=== PATIENT | male | born 1990 | race Caucasian/White ===

== ENCOUNTER 2020-05-18 20:36 | Inpatient (IN) | payer MEDICARE, MEDICAID, SELFPAY ==
[2020-05-18 20:46] VITALS: BP 141/86; PULSE 112; RESP 14; TEMP 36.7; O2SAT 97; BMI 31.0
--- NOTE | 2020-05-18 20:59 | ED_ITS ---
HPI - Psych General: Stated Complaint: SI Time Seen by Provider: 05/18/20 20:46 Source: patient Mode of arrival: ambulatory Limitations: no limitations History of Present Illness: HPI Narrative: 29-year-old male states he has a history of schizoaffective disorder. He states that starting yesterday he started having hallucinations auditory. He states that they have been telling t o harm himself and he has had some suicidal thoughts. He has no active plan. He states his last psych admission was 3 years ago and he voluntarily states he would like to be admitted again due to these hallucinations and thoughts. Denies any worsening improving factors. Associated symptoms: Reports auditory hallucinations, depression and suicidal ideation Review of Systems Const: Denies: fever(s), chills, body aches or change in appetite Eyes: Denies: blurry vision or eye discomfort ENMT: Denies: throat pain or dental pain Card: Denies: chest pain Resp: Denies: dyspnea GI: Denies: abdominal pain, nausea, vomiting or diarrhea : Denies: dysuria Musc: Denies: neck pain or back pain Skin/Breast: Denies: rash Neuro: Denies: headache(s) Psych: Reports: depression, auditory hallucinations and suicidal ideation Jameson/Lymph: Denies: easy bruising All/Imm: Denies: urticaria Physical Exam Const: COMMON NORMALS: no acute distress, patient oriented x3 and healthy appearing HENMT: COMMON NORMALS: normocephalic and atraumatic HEAD & SCALP: normocephalic and atraumatic Eye: COMMON NORMALS: Equal, round and reactive pupils present and EOMs intact bilaterally PUPIL: Yes Equal, round and reactive pupils present Neck/C-Spine: COMMON NORMALS: full ROM and supple Chest: COMMONS NORMALS: normal inspection of the chest and normal palpation of entire chest wall Resp: COMMON NORMALS: normal respiratory effort, No retractions, No use of accessory muscles and clear to auscultation bilaterally AUSCULTATION: clear to auscultation bilaterally Cardio: COMMON NORMALS: regular rate, regular rhythm and No murmurs present (Cardio) RATE: regular rate RHYTHM: regular rhythm GI: COMMON NORMALS: Normal to inspection, nondistended, normoactive bowel korey nds present, Soft to palpation, non-tender and no masses PALPATION: Yes Soft to palpation Extremity: COMMON NORMALS: normal to inspection and full ROM Neuro: COMMON NORMALS: patient oriented x3, moves all extremities and no focal motor deficits Psych: COMMON NORMALS: mental status grossly normal, Normal thought process present and cooperative THOUGHT PROCESS: Normal thought process present Skin: COMMON NORMALS: no rashes or lesions noted and no wounds GENERAL SKIN EXAM: no rashes or lesions noted MDM - Psych MDM Narrative: Medical decision making narrative: Patient presents here with suicidal ideations along with hallucinations. Patient is well-appearing here and is voluntary. He is medically cleared I spoke to psychiatrist will admit. Lab Data: Labs: Lab Results 05/18/20 05/18/20 05/18/20 Range/Units 21:00 21:00 21:05 WBC 8.6 (4.0-10.0) 10^3/ uL RBC 4.99 (4.1-5.3) 10^6/u L Hgb 15.5 (11.7-16.6) g/dL Hct 45.8 (42.0-52.0) % MCV 91.8 (80-94) fL MCH 31.1 (28.0-34.0) pg MCHC 33.8 (30.0-36.0) g/dL RDW 12.5 (12.1-15.1) % Plt Count 212 (130-400) 10^3/c mm MPV 9.8 (7.4-10.4) fL Neut % (Auto) 59.6 % Lymph % (Auto) 32.4 % Austin % (Auto) 6.4 % Eos % (Auto) 1.3 % Baso % (Auto) 0.1 % Neut # (Auto) 5.12 (1.8-7.7) 10^3/u L Lymph # (Auto) 2.8 (0.8-4.8) 10^3/u L Austin # (Auto) 0.6 (0.2-0.9) 10^3/u L Eos # (Auto) 0.1 (0.0-0.8) 10^3/u L Baso # (Auto) 0.0 (0.0-0.1) 10^3/u L Nucleated RBC % (a uto) 0 % Nucleated RBCs # 0.0 /100WBC Sodium 138 (136-145) mmol/L Potassium 4.0 (3.5-5.1) mmol/L Chloride 101 (98-107) mmol/L Carbon Dioxide 24 (22-29) mmol/L Anion Gap 17.0 (5-19) BUN 10 (6-20) mg/dL Creatinine 0.6 L (0.7-1.2) mg/dL GFR Calculation 160.4 H (90-130) mL/min Glucose 92 (65-115) mg/dL Calculated Osmolal ity 285 (285-295) mOsm/k g Calcium 9.7 (8.5-10.5) mg/dL Total Bilirubin 0.2 (0.15-1.2) mg/dL AST 13 (0-40) U/L ALT 17 (0-41) U/L Alkaline Phosphata se 36 L (40-130) IU/L Total Protein 7.6 (6.6-8.7) g/dL Albumin 4.3 (3.5-5.2) g/dL Globulin 3.3 (1.3-4.6) g/dL Salicylates < 0.3 L (3-10) mg/dL Urine Opiates Scre en Negative (Negative) ng/mL Acetaminophen < 5.0 L (10-30) ug/mL Ur Barbiturates Sc reen Negative (Negative) ng/mL Ur Phencyclidine S crn Negative (Negative) ng/mL Ur Amphetamines Sc reen Negative (Negative) ng/mL U Benzodiazepines Scrn Negative (Negative) ng/mL Urine Cocaine Scre en Negative (Negative) ng/mL U Marijuana (THC) Screen Negative (Negative) ng/mL Ethyl Alcohol < 10 (0-10) mg/dL Discharge Plan Discharge Patient Disposition: Admitted As Inpatient Clinical Impression: Hallucination, Suicidal ideation Condition: Stable Coding Level of Care Code ED Clinical Specialist Medical Device for Keny Fwd Exam Comprehensive
[2020-05-18 21:06] LABS: Basophils % 0.1 %; Eosinophils # 0.1 10^3/uL (0.0-0.8); Eosinophils % 1.3 %; Hematocrit 45.8 % (42.0-52.0); Hemoglobin 15.5 g/dL (11.7-16.6); Lymphocytes # 2.8 10^3/uL (0.8-4.8); Lymphocytes % 32.4 %; Mean Corpuscular HGB Conc 33.8 g/dL (30.0-36.0); Mean Corpuscular Hemoglobin 31.1 pg (28.0-34.0); Mean Corpuscular Volume 91.8 fL (80-94); Mean Platelet Volume 9.8 fL (7.4-10.4); Monocytes # 0.6 10^3/uL (0.2-0.9); Monocytes % 6.4 %; Neutrophils # 5.12 10^3/uL (1.8-7.7); Neutrophils % 59.6 %; Nucleated Red Blood Cells % 0 %; Platelet Count 212 10^3/cmm (130-400); Red Blood Count 4.99 10^6/uL (4.1-5.3); Red Cell Distribution Width 12.5 % (12.1-15.1); White Blood Count 8.6 10^3/uL (4.0-10.0)
[2020-05-18 21:19] LABS: Amphetamines Screen Urine Negative (Negative); Barbiturates Screen Urine Negative (Negative); Benzodiazepines Screen Urine Negative (Negative); Cocaine Screen Urine Negative (Negative); Opiate Screen Urine Negative (Negative); PCP Screen Urine Negative (Negative); THC Screen Urine Negative (Negative)
[2020-05-18 21:23] LABS: Alanine Aminotransferase 17 U/L (0-41); Albumin Level 4.3 g/dL (3.5-5.2); Alkaline Phosphatase 36 IU/L (40-130); Aspartate Amino Transferase 13 U/L (0-40); Blood Urea Nitrogen 10 mg/dL (6-20); Calcium 9.7 mg/dL (8.5-10.5); Carbon Dioxide 24 mmol/L (22-29); Chloride 101 mmol/L (98-107); Globulin 3.3 g/dL (1.3-4.6); Glomerular Filtration Rate 160.4 mL/min (90-130); Glucose 92 mg/dL (65-115); Osmolality Calculated 285 mOsm/kg (285-295); Sodium 138 mmol/L (136-145); Total Bilirubin 0.2 mg/dL (0.15-1.2); Total Protein 7.6 g/dL (6.6-8.7)
[2020-05-18 21:25] LABS: Acetaminophen < 5.0 ug/mL (10-30); Alcohol Level < 10 mg/dL (0-10); Salicylate < 0.3 mg/dL (3-10)
[2020-05-18] MEDS: LORazepam 2 mg Tablet PO (21:56)
[2020-05-18 22:11] LABS: Valproic Acid Level 38.1 ug/mL (50-100)
[2020-05-18 22:17] VITALS: BP 132/76; PULSE 68; RESP 18; O2SAT 99
[2020-05-18 22:52] VITALS: BP 119/74; PULSE 128; RESP 18; TEMP 36.2; O2SAT 97
[2020-05-18] MEDS: nicotine 2 mg Gum BUCCAL (23:28)
[2020-05-18] MEDS: hyDROXYzine 25 mg Capsule 50 MG PO (23:28)
[2020-05-18] MEDS: trazodone 50 mg Tablet PO (23:28)
[2020-05-18] MEDS: acetaminophen 325 mg Tablet 650 MG PO (23:28)
[2020-05-19 06:00] VITALS: BP 128/80; PULSE 105; RESP 18; TEMP 36.7; O2SAT 96
[2020-05-19] MEDS: lisinopril 5 mg Tablet PO (06:54)
[2020-05-19] MEDS: levothyroxine 100 mcg Tablet PO (06:54)
[2020-05-19] MEDS: metoprolol succinate ER (24 HR) 25 mg Tablet PO (06:54)
[2020-05-19] MEDS: nicotine 2 mg Gum BUCCAL ×5 (06:54→18:03)
[2020-05-19] MEDS: quetiapine 300 mg Tablet PO ×2 (07:03→21:22)
[2020-05-19] MEDS: quetiapine 100 mg Tablet PO ×2 (07:03→21:22)
[2020-05-19] MEDS: divalproex DR 500 mg Tablet PO ×2 (08:10→21:23)
[2020-05-19] MEDS: hyDROXYzine 25 mg Capsule 50 MG PO ×2 (09:57→21:23)
--- NOTE | 2020-05-19 09:58 | PC.NURSE ---
PRN VISTARIL? ANXIETY patient at nurses station and reports increased anxiety. PRN Vistaril 50mh PO given at this time. Will monitor for effectiveness of this medication.
--- NOTE | 2020-05-19 10:50 | PC.NURSE ---
PRN VISTARIL EFFECTIVE NO FURTHER C/O ANXIETY
--- NOTE | 2020-05-19 11:16 | PM.NHP ---
Providers/Chief Complaint Admitting Physician: Abdi Castorena DO Primary Care Provider: Sp Flowers MD Chief Complaint: SI HPI NPU History of Present Illness Real Black is a 29 year old male with history of schizoaffective disorder reports worsening command auditory hallucinations to harm himself in the context of worsening depressive symptoms. Patient denies any recent medication changes and states last psychiatric hospitalization was approximately 3 years ago. Patient states that his medications have been managed by primary care while awaiting an appointment with a psychiatrist at [facility]. Reports worsening low mood, decreased energy and interest in his usual activities. Currently denying any suicidal ideation but reports history of self-harm behavior 3 years ago. Patient currently denying any auditory hallucinations, denies any visual destinations, denies any delusions. Patient reports some anxiety symptoms related to his condition but otherwise denies any sustained excessive worry or difficulty controlling his worrying, denies any panic symptoms. Denies any use of substances or alcohol or any other modifying factors. Patient reports living in a detention, reports a good support system, supports himself on disability. Review of Systems General: Reports: 10 or more systems reviewed and unremarkable except in HPI and below Meds NPU Home Medications Medication Instructions Recorded Confirmed Last Taken Type divalproex [Depakote] 500 mg PO BID@0700,1900 05/18/20 05/18/20 05/18/20 History hydroxyzine pamoate 25 mg PO Q8H PRN 05/18/20 05/18/20 Unknown History levothyroxine 100 mcg PO DAILY@0700 05/18/20 05/18/20 05/18/20 History lisinopril 5 mg PO DAILY@0700 05/18/20 05/18/20 05/18/20 History metoprolol succinate 25 mg PO DAILY@0700 05/18/20 05/18/20 05/18/20 History mirtazapine 15 mg PO DAILY@0700 05/18/20 05/18/20 05/18/20 History nicotine 1 patch TRANSDERMAL DAILY 05/18/20 05/18/20 05/18/20 History quetiapine 400 mg PO BID@0700,1900 05/18/20 05/18/20 05/18/20 History risperidone [Risperdal] 1 mg PO Q2H PRN 05/18/20 05/18/20 Unknown History Allergies Allergy/AdvReac Type Severity Reaction Status Date / Time haloperidol [From Haldol] Allergy Unknown Verified 05/18/20 20:45 lurasidone [From Latuda] Allergy Unknown Verified 05/18/20 20:45 olanzapine [From Zyprexa] Allergy Unknown Verified 05/18/20 20:45 [facility] NPU Other Psychiatric History: Other Psychiatric History: Reports first contact with mental health was in his late teens, does not recall last contact with his psychiatrist, reports current medications are managed by primary care Reports last psychiatric hospitalization was 3 years ago and had harmed himself by cutting his wrist at the time Reports only suicide attempt was cutting his wrist 3 years ago with prior self-harm behavior with no subsequent episodes Mental Status Exam MSE Comments: Appears stated age, disheveled, unkempt, sitting in wheelchair, good eye contact, calm, cooperative Psychomotor activity is neither increased nor decreased, no agitation Speech is somewhat slow, normal volume, spontaneous, fair articulation, not pressured I feel depressed, congruent affect, not labile Alert and oriented to person, place, time, situation Memory and concentration appear to be fair to intact per interview Intellectual functioning appears to be below average to average at best based on vocabulary, interview Thought process, some delays, linear, no flight of ideas, no looseness of associations Thought content, no delusions, no hallucinations, no suicidal or homicidal ideation Insight and judgment appear to be fair Vitals/I&O/Wt Last Vital Signs Temp 98.1 F 05/19/20 06:00 Pulse 105 H 05/19/20 06:00 Resp 18 05/19/20 06:00 BP 128/80 05/19/20 06:00 Pulse Ox 96 05/19/20 06:00 Weight last 48 hrs Weight 95.254 kg Data NPU : 05/18/20 21:00 05/18/20 21:00 A&P Assessment and plan (1) Suicidal ideation: Status: Acute (2) Depressive disorder: Status: Acute (3) Schizoaffective disorder: Status: Acute Additional A&P Information Patient with worsening mood congruent command auditory hallucinations to harm himself with past history of suicide attempt 3 years ago, currently denying any suicidal ideation but continues to have worsening depressive symptoms. Patient would benefit from titrating up on patient's antidepressant while observing for any return of suicidal ideation or self-harm behavior. VOLUNTARY ADMIT to inpatient psychiatry INCREASE to mirtazapine 30 mg at bedtime targeting depressive symptoms CONTINUE Seroquel 400 mg twice daily CONTINUE Depakote 500 mg twice daily Encourage patient to participate in unit activities to include group sessions and unit milieu Involuntary Hold Information 96 Hour Hold: 96 Hour Involuntary Admission: No Attestations NPU Medical Necessity Statement*: Patient requires psychiatric hospitalization given worsening psychotic symptoms and depressive symptoms as well as recent suicidal ideation with past history of suicide attempt requiring medication stabilization. Anticipate hospital stay to exceed 2 midnights Time Spent in Patient Care: Greater than 35 minutes (>than 50% of time spent in counselling and/or direct pt care on unit). Coding Level of Care Code Acute Contracts Director for Keny Ying Diagnoses Suicidal ideation R45.851 Depressive disorder F32.9 Schizoaffective disorder F25.9
[2020-05-19 14:00] VITALS: BP 122/66; PULSE 99; RESP 18; TEMP 36.8; O2SAT 95
--- NOTE | 2020-05-19 18:04 | PC.NURSE ---
pt assisted to first floor to shower. pt showered independently, given clean scrubs and changed into them
[2020-05-19 19:57] VITALS: BP 114/78; PULSE 95; RESP 199; TEMP 36.6; O2SAT 95
[2020-05-19] MEDS: mirtazapine 30 mg Tablet PO (21:22)
[2020-05-20] MEDS: nicotine 2 mg Gum BUCCAL ×9 (01:38→23:41)
[2020-05-20 06:00] VITALS: BP 127/73; PULSE 98; RESP 17; TEMP 36.5; O2SAT 95
[2020-05-20] MEDS: levothyroxine 100 mcg Tablet PO (08:09)
[2020-05-20] MEDS: lisinopril 5 mg Tablet PO (08:10)
[2020-05-20] MEDS: divalproex DR 500 mg Tablet PO ×2 (08:10→21:15)
[2020-05-20] MEDS: quetiapine 100 mg Tablet PO ×2 (08:10→21:15)
[2020-05-20] MEDS: metoprolol succinate ER (24 HR) 25 mg Tablet PO (08:10)
[2020-05-20] MEDS: quetiapine 300 mg Tablet PO ×2 (08:10→21:15)
[2020-05-20 14:00] VITALS: BP 124/68; PULSE 107; RESP 20; TEMP 36.4; O2SAT 96
--- NOTE | 2020-05-20 14:29 | PC.SOCIAL ---
Important Medicare Message Patient was not provided at admission. Reviewed page 1 and 2 of Important Medicare Message and signed page 2. Verbalized understanding. Original to patient and copy to chart.
--- NOTE | 2020-05-20 15:22 | PM.NPN ---
Subjective NPU Subjective: Interval history: Reports improvement in depressive symptoms, states 3-/10, denies any interval suicidal ideation Denies any interval psychotic symptoms Reports being compliant with medication and denies any medication side effects No reported behavioral disturbances Mental Status Exam MSE Comments: Sitting in wheelchair, calm, cooperative, interactive, good eye contact Psychomotor activity is neither increased nor decreased, no agitation Speech is somewhat slow, normal volume, spontaneous, fair articulation, not pressured I am feeling better, congruent affect, not labile Alert and oriented to person, place, time, situation Memory and concentration appear to be fair to intact per interview Thought process, occasional delays, linear, no flight of ideas, no looseness of associations Thought content, no delusions, no hallucinations, no suicidal or homicidal ideation Insight and judgment appear to be to intact Vitals/I&O/Wt Last Vital Signs Temp 97.7 F 05/20/20 06:00 Pulse 98 05/20/20 06:00 Resp 17 05/20/20 06:00 BP 127/73 05/20/20 06:00 Pulse Ox 95 05/20/20 06:00 Weight last 48 hrs Weight 95.254 kg Data NPU : 05/18/20 21:00 05/18/20 21:00 A&P Assessment and plan (1) Suicidal ideation: Status: Acute (2) Depressive disorder: Status: Acute (3) Schizoaffective disorder: Status: Acute Additional A&P Information Reports improvement in depressive symptoms, denies any interval suicidal ideation CONTINUE current medication, continue to monitor Involuntary Hold Information 96 Hour Hold: 96 Hour Involuntary Admission: No Attestations NPU Medical Necessity Statement*: Continues to require psychiatric hospitalization for medication stabilization and coordination for safe discharge including post discharge psychiatric care Coding Level of Care Code Acute Corporate Communications Specialist for Renay Fweric Diagnoses Suicidal ideation R45.851 Depressive disorder F32.9 Schizoaffective disorder F25.9
--- NOTE | 2020-05-20 19:04 | PM.NPTHER ---
NPU Therapy Progress Note Therapy Progress Note Date: 05/20/20 Time In: 17:35 Time Out: 18:05 Symptoms Reported: much improvement in auditory hallucinations Mood: pleasant, hopeful, goal oriented, mild guilt Progress Note: ADDY roused Real as he was resting quietly and he engages easily in conversation. He remembers that Odalis Torres, [facility] staff, spoke with him earlier in the day and he has follow up questions about [facility] services and therapy process. He has questions about how to contact [facility] via 800 line and/or by contacting the local office. FIRE PROTECTION INSPECTOR provided the information he needed. He is observed to be engaging, insightful, hopeful, and communicates appropriately. Real speaks about his past and numerous hospitalizations and when it is that he knows he needs to seek treatment for a medication adjustment. He discusses a prior romantic relationship, how it dissolved, his decision to move and his difficulty in the adjustment of his move to [place]. He feels these are the stressors that possibly lead to his escalation in symptoms. He is aware that follow up tx at [facility] will be beneficial to him and states he has already had his initial assessment to begin services. He reports engaging in therapy previously; however, never felt he had a connection with the therapist, therefore did not share. He speaks about guilt emotions related to his need for numerous hospitalizations over the years and difficulty of his family understanding and accepting his mental illness. He feels they are disappointed in him when he does need to be hospitalized. He is encouraged to work on these emotions in therapy. After stabilization, he would like to focus on taking college courses and then being involved as someone who helps those with mental health issues, such as something like a document design specialist. Intervention: FIRE PROTECTION INSPECTOR actively listened, provided information, developed initial rapport, and provided encouragement. His emotions related to family dynamic issues were validated. He was encouraged to further explore this in the therapy setting to ensure he is able to continue to seek the services he needs, although his family may at times disapprove. Reported Goals Before Discharge: continue medications, follow up with [facility] after discharge. Future goals: college courses and a job in the mental health field.
[2020-05-20 21:06] VITALS: BP 124/80; PULSE 106; RESP 18; TEMP 36.6; O2SAT 94
[2020-05-20] MEDS: mirtazapine 30 mg Tablet PO (21:15)
[2020-05-20] MEDS: hyDROXYzine 25 mg Capsule 50 MG PO (21:16)
--- NOTE | 2020-05-21 01:13 | PC.NURSE ---
PM assessment Pt denies AH/VH, Denies SI/HI, Denies pain, Pt heart/lung sounds are WNL, v/s are normal. Pt confirms to having doubts about his readiness to return to [place] tomorrow and is experiencing racing thoughts. Pt is resting in his room at this time.
[2020-05-21] MEDS: acetaminophen 325 mg Tablet 650 MG PO (04:19)
[2020-05-21] MEDS: nicotine 2 mg Gum BUCCAL ×4 (04:28→11:27)
[2020-05-21 06:00] VITALS: BP 136/80; PULSE 98; RESP 18; TEMP 36.1; O2SAT 97
[2020-05-21] MEDS: lisinopril 5 mg Tablet PO (06:30)
[2020-05-21] MEDS: levothyroxine 100 mcg Tablet PO (06:30)
[2020-05-21] MEDS: metoprolol succinate ER (24 HR) 25 mg Tablet PO (06:30)
[2020-05-21] MEDS: quetiapine 100 mg Tablet PO (08:06)
[2020-05-21] MEDS: quetiapine 300 mg Tablet PO (08:06)
[2020-05-21] MEDS: divalproex DR 500 mg Tablet PO (08:06)
[2020-05-21 11:21] VITALS: BP 136/80; PULSE 98; RESP 18; TEMP 36.1; O2SAT 97
--- NOTE | 2020-05-21 16:54 | P.DS_ITS ---
Diagnoses at Discharge Discharge Diagnosis (1) Suicidal ideation: Status: Resolved (2) Depressive disorder: Status: Acute (3) Schizoaffective disorder: Status: Acute Reason for Visit Reason for Visit: SI Brief History: History of Present Illness Real Black is a 29 year old male with history of schizoaffective disorder reports worsening command auditory hallucinations to harm himself in the context of worsening depressive symptoms. Patient denies any recent medication changes and states last psychiatric hospitalization was approximately 3 years ago. Patient states that his medications have been managed by primary care while awaiting an appointment with a psychiatrist at [facility] [place]. Reports worsening low mood, decreased energy and interest in his usual activities. Currently denying any suicidal ideation but reports history of self-harm behavior 3 years ago. Patient currently denying any auditory hallucinations, denies any visual destinations, denies any delusions. Patient reports some anxiety symptoms related to his condition but otherwise denies any sustained excessive worry or difficulty controlling his worrying, denies any panic symptoms. Denies any use of substances or alcohol or any other modifying factors. Patient reports living in a shelter, reports a good support system, supports himself on disability. Review of Systems General: Reports: 10 or more systems reviewed and unremarkable except in HPI and below Meds NPU Home Medications Medication Instructions Recorded Confirmed Last Taken Type divalproex [Depakote] 500 mg PO BID@0700,1900 05/18/20 05/18/20 05/18/20 History hydroxyzine pamoate 25 mg PO Q8H PRN 05/18/20 05/18/20 Unknown History levothyroxine 100 mcg PO DAILY@0705/18/20 05/18/20 05/18/20 History lisinopril 5 mg PO DAILY@0700 05/18/20 05/18/20 05/18/20 History metoprolol succinate 25 mg PO DAILY@0700 05/18/20 05/18/20 05/18/20 History mirtazapine 15 mg PO DAILY@0700 05/18/20 05/18/20 05/18/20 History nicotine 1 patch TRANSDERMAL DAILY 05/18/20 05/18/20 05/18/20 History quetiapine 400 mg PO BID@0700,1900 05/18/20 05/18/20 05/18/20 History risperidone [Risperdal] 1 mg PO Q2H PRN 05/18/20 05/18/20 Unknown History Allergies Allergy/AdvReac Type Severity Reaction Status Date / Time haloperidol [From Haldol] Allergy Unknown Verified 05/18/20 20:45 lurasidone [From Latuda] Allergy Unknown Verified 05/18/20 20:45 olanzapine [From Zyprexa] Allergy Unknown Verified 05/18/20 20:45 PFS NPU Other Psychiatric History: Other Psychiatric History: Reports first contact with mental health was in his late teens, does not recall last contact with his psychiatrist, reports current medications are managed by primary care Reports last psychiatric hospitalization was 3 years ago and had harmed himself by cutting his wrist at the time Reports only suicide attempt was cutting his wrist 3 years ago with prior self- harm behavior with no subsequent episodes Hospital Course Hospital Course Real presented to the emergency department with the following report: Stated Complaint: SI Time Seen by Provider: 05/18/20 20:46 Source: patient Mode of arrival: ambulatory Limitations: no limitations History of Present Illness: HPI Narrative: 29-year-old male states he has a history of schizoaffective disorder. He states that starting yesterday he started having hallucinations auditory. He states that they have been telling to harm himself and he has had some suicidal thoughts. He has no active plan. He states his last psych admission was 3 years ago and he voluntarily states he would like to be admitted again due to these hallucinations and thoughts. Denies any worsening improving factors. Associated symptoms: Reports auditory hallucinations, depression and suicidal ideation. He was admitted to the neuropsychiatric unit for definitive treatment of those issues. On the unit he slowly acclimated to the individual, group and milieu therapies provided. It was identified that he had a recent move to the area and recent admission to his shelter/[facility]. His outpatient medications were continued and his Remeron was increased. He showed a positive response to those changes and was able to contract for safety prior to discharge.During the hospitalization, patient had routine laboratory studies which were within normal limits except for few outliers. Additionally there was a general medical evaluation which was also within normal limits and revealed no new acute processes. Discharge Summary: At the time of discharge, he was absent psychosis or lethality. Mood and anxiety were well managed. Patient endorsed a plan to follow-up with the aftercare recommendations of the treatment team. Patient was evaluated and deemed to be absent credible lethality, and had achieved the maximum benefit from an inpatient hospitalization, so was discharged. Involuntary Hold Information 96 Hour Hold: 96 Hour Involuntary Admission: No Mental Status Exam MSE Comments: This is an overweight versus obese white male with hospital scrubs on with appropriate grooming and eye contact. No abnormal movements sitting in a wheelchair. Cooperative with exam in no acute distress. Speech normal rate and volume. Mood described as much better, affect congruent. Thought process organized. Thought content: Patient denied suicidal or homicidal ideation, there were no delusions reported or noted, he denied any auditory or visual hallucinations. Attention and concentration were intact and memory appeared reliable but none were formally tested. He is alert and oriented ?3. Insight and judgment appeared fair. Discharge Data Vitals: Last Vital Signs Temp 97.0 F L 05/21/20 11:21 Pulse 98 05/21/20 11:21 Resp 18 05/21/20 11:21 BP 136/80 05/21/20 11:21 Pulse Ox 97 05/21/20 11:21 Discharge Plan Discharge Patient Disposition: Home Condition: Stable Prescriptions: New mirtazapine 30 mg Tablet 30 mg PO BEDTIME 30 Days Qty: 30 RF: 1 Continued nicotine 21 mg/24 hr Patch 24 Hour 1 patch TRANSDERMAL DAILY RF: 0 Depakote 500 mg Tablet,Delayed Release (Dr/Ec) 500 mg PO BID@0700,1900 30 Days Qty: 30 RF: 1 levothyroxine 100 mcg Tablet 100 mcg PO DAILY@0700 30 Days Qty: 30 RF: 1 lisinopril 5 mg Tablet 5 mg PO DAILY@0700 30 Days Qty: 30 RF: 1 metoprolol succinate 25 mg Tablet Extended Release 24 Hr 25 mg PO DAILY@0700 30 Days Qty: 30 RF: 1 Risperdal 1 mg Tablet 1 mg PO Q2H PRN (Reason: intensive hallucinations) 30 Days Qty: 30 RF: 1 hydroxyzine pamoate 25 mg Capsule 25 mg PO Q8H PRN (Reason: Anxiety) 30 Days Qty: 90 RF: 1 quetiapine 400 mg Tablet 400 mg PO BID@0700,1900 30 Days Qty: 30 RF: 1 Discontinued mirtazapine 15 mg Tablet 15 mg PO DAILY@0700 RF: 0 Discharge Orders: Discharge Order (Routine); Ordered 05/21/20 Ordered By: Troy Stevens Referrals: [facility] [Outside] - 05/26/20 1:15 pm (Intake assessment, will be done over the phone with Yesica Green) Gabe Loaiza DPM [Physician] - 06/03/20 1:30 pm (Rescheduled from 05/19/20 New patient appointment) Sp Flowers MD [Primary Care Provider] - Discharge Diet: Cardiac Discharge Activity: Resume usual activity Patient Instructions: Generalized Anxiety Disorder Discharge Attestations NPU Time Spent in Discharge Care*: less than 30 min Specific Discharge Activities: Specific discharge activities: educating patient, discussing with business case analyst/social workers/dc planners, documenting/other paperwork and evaluating patient/reviewing data Coding Level of Care Code Acute Production Support Analyst for g Fwd Diagnoses Suicidal ideation R45.851 Depressive disorder F32.9 Schizoaffective disorder F25.9
== END 2020-05-21 12:58 | disposition home or self-care (01) | DRG 885 ==
LOC: ER 21:22 → NP 22:10
PROVIDERS: Admitting Provider Psychiatry & Neurology Psychiatry; Emergency Provider Emergency Medicine; PCP Family Medicine; Visit Provider Psychiatry & Neurology Psychiatry
DX: F25.9 Schizoaffective disorder, unspecified (principal); R45.851 Suicidal ideations; F32.9 Major depressive disorder, single episode, unspecified; Z91.5 Personal history of self-harm
CPT/HCPCS: 12345; 36415; 80053; 80164; 80306; 80307; 85025; 99284

== ENCOUNTER 2020-06-03 12:33 | Outpatient (CLI) | payer MEDICARE, MEDICAID, SELFPAY | END 2020-06-03 12:34 | disposition home or self-care (01) | LOC: SPT 12:34 | PROVIDERS: PCP Family Medicine; Visit Provider Podiatrist Foot & Ankle Surgery | DX: Z46.89 Encounter for fitting and adjustment of other specified devices (principal); S93.401D Sprain of unspecified ligament of right ankle, subsequent encounter; X58.XXXD Exposure to other specified factors, subsequent encounter | CPT/HCPCS: 97760; L1902 ==

== ENCOUNTER 2020-06-12 21:02 | Inpatient (IN) | payer MEDICARE, MEDICAID, SELFPAY ==
[2020-06-12 21:05] VITALS: BP 127/89; PULSE 115; RESP 18; TEMP 36.6; O2SAT 99; BMI 31.0
[2020-06-12 21:26] LABS: Basophils % 0.3 %; Eosinophils # 0.2 10^3/uL (0.0-0.8); Eosinophils % 2.3 %; Hematocrit 45.8 % (42.0-52.0); Hemoglobin 15.6 g/dL (11.7-16.6); Lymphocytes # 2.9 10^3/uL (0.8-4.8); Lymphocytes % 44.9 %; Mean Corpuscular HGB Conc 34.1 g/dL (30.0-36.0); Mean Corpuscular Hemoglobin 30.7 pg (28.0-34.0); Mean Corpuscular Volume 90.2 fL (80-94); Mean Platelet Volume 10.1 fL (7.4-10.4); Monocytes # 0.4 10^3/uL (0.2-0.9); Monocytes % 5.6 %; Neutrophils # 3.02 10^3/uL (1.8-7.7); Neutrophils % 46.6 %; Nucleated Red Blood Cells % 0 %; Platelet Count 216 10^3/cmm (130-400); Red Blood Count 5.08 10^6/uL (4.1-5.3); Red Cell Distribution Width 11.9 % (12.1-15.1); White Blood Count 6.5 10^3/uL (4.0-10.0)
[2020-06-12 21:43] LABS: Alanine Aminotransferase 16 U/L (0-41); Albumin Level 4.5 g/dL (3.5-5.2); Alkaline Phosphatase 36 IU/L (40-130); Anion Gap 16.8 (5-19); Aspartate Amino Transferase 14 U/L (0-40); Blood Urea Nitrogen 8 mg/dL (6-20); Carbon Dioxide 22 mmol/L (22-29); Chloride 102 mmol/L (98-107); Globulin 3.1 g/dL (1.3-4.6); Glomerular Filtration Rate 134.3 mL/min (90-130); Glucose 112 mg/dL (65-115); Osmolality Calculated 283 mOsm/kg (285-295); Potassium 3.8 mmol/L (3.5-5.1); Sodium 137 mmol/L (136-145); Total Bilirubin 0.2 mg/dL (0.15-1.2); Total Protein 7.6 g/dL (6.6-8.7)
[2020-06-12 21:47] LABS: Acetaminophen < 5.0 ug/mL (10-30); Alcohol Level < 10 mg/dL (0-10); Salicylate < 0.3 mg/dL (3-10)
[2020-06-12 21:50] LABS: Add Urine Microscopic? NO
[2020-06-12 21:55] VITALS: BP 106/74; PULSE 130; RESP 16; TEMP 36.7; O2SAT 97
[2020-06-12 21:58] LABS: Glucose Urine UA Norm (Normal); Protein Urine Neg (Negative); Specific Gravity, Urine 1.005 (1.005-1.030); Urine Appearance Clear (CLEAR); Urine Color Yellow (Yellow); pH Urine 6.5 (5-7)
[2020-06-12 21:59] LABS: Bilirubin Urine Neg (Negative); Blood Urine Neg (Negative); Ketones Urine Negative (Negative); Leukocyte Esterase Urine Negative (Negative); Nitrate Urine Negative (Negative); Urobilinogen Urine Norm (Negative)
[2020-06-12 22:00] VITALS: BP 106/74; PULSE 130; RESP 16; TEMP 36.7; O2SAT 97
[2020-06-12 22:05] LABS: Amphetamines Screen Urine Negative (Negative); Barbiturates Screen Urine Negative (Negative); Benzodiazepines Screen Urine Negative (Negative); Cocaine Screen Urine Negative (Negative); Opiate Screen Urine Negative (Negative); PCP Screen Urine Negative (Negative); THC Screen Urine Negative (Negative)
[2020-06-12 23:12] VITALS: BP 106/74; PULSE 130; RESP 19; TEMP 36.7; O2SAT 97
[2020-06-12 23:20] VITALS: RESP 16
--- NOTE | 2020-06-12 23:26 | ED_ITS ---
HPI - Psych General: Chief Complaint: Psychiatric Symptoms Stated Complaint: hearing voices Time Seen by Provider: 06/12/20 21:07 Source: patient Mode of arrival: ambulatory Limitations: no limitations History of Present Illness: HPI Narrative: Patient presents to the emergency department with complaints of auditory hallucination and suicidal ideation. He was admitted from this facility a few weeks ago was discharged home. He states that he was doing better but thinks he left too early as he felt he was improving at that time. He is having suicidal thoughts but does not have a plan. He would like to be held before he progresses further. complaint: suicidal ideation Duration: constant History of same: Yes Relieving factors: none Exacerbating factors: none Associated psychiatric symptoms: depression, suicidal ideation and auditory hallucinations Associated symptoms: Reports auditory hallucinations, depression and suicidal ideation; Deny visual hallucinations, delusions, homicidal ideation or racing thoughts Treatments prior to arrival: none If self harm: admits thoughts of self harm Review of Systems General: Reports: 10 or more systems reviewed and unremarkable except in HPI and below Const: Denies: fever(s), chills or body aches Eyes: Denies: change in vision or blurry vision ENMT: Denies: throat pain, enlarged tonsils, odynophagia, hoarseness, mouth pain or swelling of lips/tongue Card: Denies: palpitations, irregular heart rhythm, edema or swelling of feet/ankles Resp: Denies: dyspnea, productive cough or non-productive cough GI: Denies: abdominal pain, nausea or vomiting : Denies: flank pain, dysuria, urinary frequency, urinary urgency or urinary hesitancy Musc: Denies: neck pain, back pain or extremity swelling Skin/Breast: Denies: rash, pruritus or erythema Neuro: Denies: headache(s), numbness in extremities or weakness in extremities Psych: Reports: depression, auditory hallucinations and suicidal ideation; Denies: visual hallucinations or homicidal ideation Endo: Denies: polyuria, polydipsia or tired all the time [facility] ED PFSH: Medical History Depressive disorder Hallucination Schizoaffective disorder Physical Exam Const: COMMON NORMALS: no acute distress, average body habitus, patient oriented x3, no limitations, healthy appearing, alert and well nourished HENMT: COMMON NORMALS: normocephalic, atraumatic and moist oral mucous membranes HEAD & SCALP: normocephalic and atraumatic Neck/C-Spine: COMMON NORMALS: no meningeal signs and no JVD Resp: COMMON NORMALS: normal respiratory effort, No retractions, No use of accessory muscles, clear to auscultation bilaterally and percussion normal AUSCULTATION: clear to auscultation bilaterally PERCUSSION: percussion normal Cardio: COMMON NORMALS: no JVD, regular rate, regular rhythm, S1 normal heart sound present, S2 normal heart sound present, No gallops present (Cardio), No clicks present (Cardio), No murmurs present (Cardio), No rub (Cardio) and Peripheral pulses 2+ throughout RATE: regular rate RHYTHM: regular rhythm HEART SOUNDS: S1 normal heart sound present and S2 normal heart sound present PERIPHERAL PULSES: Peripheral pulses 2+ throughout GI: COMMON NORMALS: Normal to inspection, nondistended, normoactive bowel sounds present, Soft to palpation, non-tender, No hepatosplenomegaly present, no masses and no bruits PALPATION: Yes Soft to palpation and Yes No hepatosplenomegaly present Neuro: COMMON NORMALS: patient oriented x3 SENSORIUM/ORIENTATION: Yes alert MENINGEAL SIGNS: Yes no meningeal signs Psych: COMMON NORMALS: mental status grossly normal and Normal thought process present THOUGHT PROCESS: Normal thought process present THOUGHT CONTENT: Yes Suicidality present, No delusions and Yes Hallucination(s) present auditory Skin: COMMON NORMALS: no rashes or lesions noted, no wounds, turgor normal, no jaundice, no petechiae and no mottling GENERAL SKIN EXAM: no rashes or lesions noted and turgor normal MDM - Psych MDM Narrative: Medical decision making narrative: 29-year-old male who presents to the emergency department with suicidal ideation and auditory hallucinations. He is medically cleared and admitted to the neuropsychiatric unit for further evaluation and management Medical Records: Attestation: I reviewed the patient's medical records. Lab Data: Attestation: I reviewed the patient's lab results. Labs: Lab Results 06/12/20 06/12/20 06/12/20 Range/Units 21:19 21:19 21:19 WBC 6.5 (4.0-10.0) 10^3/ uL RBC 5.08 (4.1-5.3) 10^6/u L Hgb 15.6 (11.7-16.6) g/dL Hct 45.8 (42.0-52.0) % MCV 90.2 (80-94) fL MCH 30.7 (28.0-34.0) pg MCHC 34.1 (30.0-36.0) g/dL RDW 11.9 L (12.1-15.1) % Plt Count 216 (130-400) 10^3/c mm MPV 10.1 (7.4-10.4) fL Neut % (Auto) 46.6 % Lymph % (Auto) 44.9 % [place] % (Auto) 5.6 % Eos % (Auto) 2.3 % Baso % (Auto) 0.3 % Neut # (Auto) 3.02 (1.8-7.7) 10^3/u L Lymph # (Auto) 2.9 (0.8-4.8) 10^3/u L [place] # (Auto) 0.4 (0.2-0.9) 10^3/u L Eos # (Auto) 0.2 (0.0-0.8) 10^3/u L Baso # (Auto) 0.0 (0.0-0.1) 10^3/u L Nucleated RBC % (a uto) 0 % Nucleated RBCs # 0.0 /100WBC Sodium 137 (136-145) mmol/L Potassium 3.8 (3.5-5.1) mmol/L Chloride 102 (98-107) mmol/L Carbon Dioxide 22 (22-29) mmol/L Anion Gap 16.8 (5-19) BUN 8 (6-20) mg/dL Creatinine 0.7 (0.7-1.2) mg/dL GFR Calculation 134.3 H (90-130) mL/min Glucose 112 (65-115) mg/dL Calculated Osmolal ity 283 L (285-295) mOsm/k g Calcium 9.0 (8.5-10.5) mg/dL Total Bilirubin 0.2 (0.15-1.2) mg/dL AST 14 (0-40) U/L ALT 16 (0-41) U/L Alkaline Phosphata se 36 L (40-130) IU/L Total Protein 7.6 (6.6-8.7) g/dL Albumin 4.5 (3.5-5.2) g/dL Globulin 3.1 (1.3-4.6) g/dL Urine Color Yellow (Yellow) Urine Appearance Clear (CLEAR) Urine pH 6.5 (5-7) Ur Specific Gravit y 1.005 (1.005-1.030) Urine Protein Neg (Negative) Urine Glucose (UA) Norm (Normal) Urine Ketones Negative (Negative) Urine Blood Neg (Negative) Urine Nitrate Negative (Negative) Urine Bilirubin Neg (Negative) Urine Urobilinogen Norm (Negative) mg/dL Ur Leukocyte Unique ase Negative (Negative) Salicylates < 0.3 L (3-10) mg/dL Urine Opiates Scre en (Negative) ng/mL Acetaminophen < 5.0 L (10-30) ug/mL Ur Barbiturates Sc reen (Negative) ng/mL Ur Phencyclidine S crn (Negative) ng/mL Ur Amphetamines Sc reen (Negative) ng/mL U Benzodiazepines Scrn (Negative) ng/mL Urine Cocaine Scre en (Negative) ng/mL U Marijuana (THC) Screen (Negative) ng/mL Ethyl Alcohol < 10 (0-10) mg/dL 06/12/20 Range/Units 21:19 WBC (4.0-10.0) 10^3/ uL RBC (4.1-5.3) 10^6/u L Hgb (11.7-16.6) g/dL Hct (42.0-52.0) % MCV (80-94) fL MCH (28.0-34.0) pg MCHC (30.0-36.0) g/dL RDW (12.1-15.1) % Plt Count (130-400) 10^3/c mm MPV (7.4-10.4) fL Neut % (Auto) % Lymph % (Auto) % [place] % (Auto) % Eos % (Auto) % Baso % (Auto) % Neut # (Auto) (1.8-7.7) 10^3/u L Lymph # (Auto) (0.8-4.8) 10^3/u L [place] # (Auto) (0.2-0.9) 10^3/u L Eos # (Auto) (0.0-0.8) 10^3/u L Baso # (Auto) (0.0-0.1) 10^3/u L Nucleated RBC % (a uto) % Nucleated RBCs # /100WBC Sodium (136-145) mmol/L Potassium (3.5-5.1) mmol/L Chloride (98-107) mmol/L Carbon Dioxide (22-29) mmol/L Anion Gap (5-19) BUN (6-20) mg/dL Creatinine (0.7-1.2) mg/dL GFR Calculation (90-130) mL/min Glucose (65-115) mg/dL Calculated Osmolal ity (285-295) mOsm/k g Calcium (8.5-10.5) mg/dL Total Bilirubin (0.15-1.2) mg/dL AST (0-40) U/L ALT (0-41) U/L Alkaline Phosphata se (40-130) IU/L Total Protein (6.6-8.7) g/dL Albumin (3.5-5.2) g/dL Globulin (1.3-4.6) g/dL Urine Color (Yellow) Urine Appearance (CLEAR) Urine pH (5-7) Ur Specific Gravit y (1.005-1.030) Urine Protein (Negative) Urine Glucose (UA) (Normal) Urine Ketones (Negative) Urine Blood (Negative) Urine Nitrate (Negative) Urine Bilirubin (Negative) Urine Urobilinogen (Negative) mg/dL Ur Leukocyte Unique ase (Negative) Salicylates (3-10) mg/dL Urine Opiates Scre en Negative (Negative) ng/mL Acetaminophen (10-30) ug/mL Ur Barbiturates Sc reen Negative (Negative) ng/mL Ur Phencyclidine S crn Negative (Negative) ng/mL Ur Amphetamines Sc reen Negative (Negative) ng/mL U Benzodiazepines Scrn Negative (Negative) ng/mL Urine Cocaine Scre en Negative (Negative) ng/mL U Marijuana (THC) Screen Negative (Negative) ng/mL Ethyl Alcohol (0-10) mg/dL Discharge Plan Discharge Patient Disposition: Admitted As Inpatient Admit Provider: Abdi Castorena Clinical Impression: Suicidal ideation, Hallucination Condition: Stable Coding Level of Care Code ED Certified Veterinary Technician for g Fwd
[2020-06-12] MEDS: hyDROXYzine 25 mg Capsule 50 MG PO (23:54)
[2020-06-12] MEDS: nicotine 2 mg Gum BUCCAL (23:54)
[2020-06-12] MEDS: trazodone 50 mg Tablet PO (23:54)
--- NOTE | 2020-06-13 01:47 | PC.NURSE ---
29/M PT PRESENTS WITH COMMAND AUDITORY HALLUCINATIONS AND SUICIDAL THOUGHTS THAT HAVE BEEN WORSENING OVER THE LAST 3 DAYS. PT STATES, ? MY DEPRESSION IS WORSENING THE ANNIVERSARY OF MY GRANDMOTHERS GETS CLOSER (JULY 23). PT WAS LAST IN NPU ON 05/18/20 FOR DEPRESSION THAT IMPROVED BUT FEELS HE LEFT THE UNIT TOO EARLY.. V/S ARE WNL, HEART/LUNG SOUNDS ARE WNL. PT DENIES PAIN, PT IS ANXIOUS AND STILL FEELS SUICIDAL AT THIS TIME, NO PLAN, BUT CONTRACTS FOR SAFETY. PT DENIES VH BUT CONFIRMS COMMAND AH TELLING HIM YOU NEED TO KILL YOURSELF. PT IS COMPLIANT WITH HOME MEDICATIONS, HE WAS LAST SEEN AT [facility] ON 06/08/20. UDS IS CLEAN. MEDICATION RECONCILIATION COMPLETE, PHYSICIAN NOTIFIED AT TIME OF ADMISSION , AND RESTARTED ALL MEDICATIONS. PHYSICIAN REQUESTED US TO HOLD INITIAL DOSE OF DEPAKOTE, OBTAIN A DEPAKOTE TROUGH, REPORT RESULT FOR FURTHER INSTRUCTION, AND TO OBTAIN A TSH LEVEL. CALL PHYSICAN WITH RESULTS BEFORE GIVING DEPAKOTE IN THE MORNING
[2020-06-13 06:00] VITALS: BP 120/80; PULSE 91; RESP 16; TEMP 36.8; O2SAT 93
[2020-06-13] MEDS: nicotine 2 mg Gum BUCCAL ×5 (06:12→19:26)
[2020-06-13] MEDS: hyDROXYzine 25 mg Capsule 50 MG PO ×2 (06:12→19:44)
[2020-06-13 08:10] LABS: Valproic Acid Level 37.6 ug/mL (50-100)
[2020-06-13] MEDS: levothyroxine 100 mcg Tablet PO (08:11)
[2020-06-13] MEDS: metoprolol succinate ER (24 HR) 25 mg Tablet PO (08:12)
[2020-06-13] MEDS: lisinopril 5 mg Tablet PO (08:12)
[2020-06-13] MEDS: divalproex DR 500 mg Tablet PO ×2 (08:15→19:43)
[2020-06-13 08:19] LABS: Thyroid Stimulating Hormone 3.41 uIU/mL (0.27-4.20)
[2020-06-13] MEDS: risperiDONE 1 mg Tablet PO ×2 (10:11→18:49)
--- NOTE | 2020-06-13 10:12 | PC.NURSE ---
AH/PRN Risperdal Patient at nurses station reports increased auditory hallucinations. PRN Risperdal 1mg given at this time. Will monitor for effectiveness of this medication.
--- NOTE | 2020-06-13 10:15 | PM.NHP ---
Providers/Chief Complaint Admitting Physician: Abdi Castorena DO Primary Care Provider: Sp Flowers MD Chief Complaint: hearing voices HPI NPU History of Present Illness Real Black is a 29 year old male with history of schizoaffective disorder recently discharged from this inpatient psychiatry unit May 21, 2020 presenting with worsening command auditory hallucinations telling him to harm himself although he currently denies any active intent or plan. Patient with similar presentation in April during which his mirtazapine was increased from mirtazapine 15 mg to mirtazapine 30 mg at bedtime targeting depressive symptoms given his report of mostly mood congruent auditory hallucinations. Patient reports that he had been feeling better and had an interval assessment performed by [facility] with a phone appointment and no interval changes to his medications since last admission. Patient reports intermittent depressive symptoms but denies any sustained low mood states or decreased energy and interest in his usual activities which he reports are watching TV and playing video games. Denies any changes in sleep or appetite. Currently reports ongoing auditory loose [place] but denies any visual destinations, denies any delusions. Patient reports no current threat of acting on his auditory hallucinations and states that he will let staff know if he has any worsening suicidal thoughts. Patient denies any interval acute stressors. Review of Systems General: Reports: 10 or more systems reviewed and unremarkable except in HPI and below Meds NPU Home Medications Medication Instructions Recorded Confirmed Last Taken Type divalproex [Depakote] 500 mg PO BID@0700,1900 30 Days 05/21/20 06/13/20 06/12/20 19:00 Rx #30 tab 500 mg hydroxyzine pamoate 25 mg PO Q8H PRN 30 Days #90 cap 05/21/20 06/13/20 06/10/20 19:00 Rx 25 mg levothyroxine 100 mcg PO DAILY@0700 30 Days #30 05/21/20 06/13/20 06/12/20 07:00 Rx tab 100 Mcg metoprolol succinate 25 mg PO DAILY@0700 30 Days #30 tab 05/21/20 06/13/20 06/12/20 07:00 Rx 25 mg mirtazapine 30 mg PO BEDTIME 30 Days #30 tab 05/21/20 06/13/20 06/12/20 19:00 Rx 30 mg risperidone [Risperdal] 1 mg PO Q2H PRN 30 Days #30 tab 05/21/20 06/13/20 Unknown Rx lisinopril 5 mg PO DAILY 06/12/20 06/13/20 06/12/20 07:00 History 5 mg quetiapine 400 mg PO BID@0700,1900 06/12/20 06/13/20 06/12/20 19:00 History 400 mg Allergies Allergy/AdvReac Type Severity Reaction Status Date / Time chlorpromazine Allergy Severe ALGY-Anaphy Verified 06/13/20 02:13 laxis haloperidol [From Haldol] Allergy Severe ALGY-Swell Verified 06/13/20 02:13 Lip/Tongue/Throat lurasidone [From Latuda] Allergy Severe ALGY-Swell Verified 06/13/20 02:13 Lip/Tongue/Throat olanzapine [From Zyprexa] Allergy Severe ALGY-Swell Verified 06/13/20 02:13 Lip/Tongue/Throat PFSH NPU PFSH: Medical History Depressive disorder Hallucination Schizoaffective disorder Other Psychiatric History: Other Psychiatric History: No change from last documented report of psychiatric history on May 19, 2020 Patient has established care with [facility] since last admission Mental Status Exam MSE Comments: Lying in bed, tired appearing, eventually sits up for interview, unkempt, appears stated age, good eye contact, calm, cooperative Psychomotor activity is decreased, no agitation Speech is somewhat slow, normal volume, spontaneous, fair articulation, not pressured I feel tired, congruent affect, not labile Alert and oriented to person, place, time, situation Memory and concentration appear to be fair to intact per interview Intellectual functioning appears to be below average to average at best based on vocabulary, interview Thought process, some delays, linear, no flight of ideas, no looseness of associations Thought content, no delusions, no hallucinations, no suicidal or homicidal ideation Insight and judgment appear to be fair Vitals/I&O/Wt Last Vital Signs Temp 98.3 F 06/13/20 06:00 Pulse 91 06/13/20 06:00 Resp 16 06/13/20 06:00 BP 120/80 06/13/20 06:00 Pulse Ox 93 06/13/20 06:00 Weight last 48 hrs Weight 95.254 kg Data NPU : 06/12/20 21:19 06/12/20 21:19 A&P Assessment and plan (1) Suicidal ideation: Status: Acute (2) Schizoaffective disorder: Status: Acute Qualifiers: Schizoaffective disorder type: unspecified Qualified Code(s): F25.9 - Schizoaffective disorder, unspecified Additional A&P Information Worsening command auditory hallucinations with suicidal ideation, denies any interval acute stressors, reports being compliant with medication Patient's Depakote level at admission was 37.6 TSH, unremarkable VOLUNTARY ADMIT to inpatient psychiatry unit RESTART home medications Encourage patient to participate in unit activities to include group sessions, unit milieu Involuntary Hold Information 96 Hour Hold: 96 Hour Involuntary Admission: No Attestations NPU Medical Necessity Statement*: Patient requires psychiatric hospitalization for observation for any worsening psychotic symptoms and suicidal ideation and for medication stabilization Anticipate hospital stay to exceed 2 midnights Time Spent in Patient Care: Greater than 35 minutes (>than 50% of time spent in counselling and/or direct pt care on unit). Coding Level of Care Code Acute Turbine Measurements Engineer for Keny Ying Diagnoses Suicidal ideation R45.851 Schizoaffective disorder F25.9 Schizoaffective disorder type: unspecified
[2020-06-13 14:00] VITALS: BP 128/88; PULSE 96; RESP 18; TEMP 36.1; O2SAT 100
[2020-06-13] MEDS: mirtazapine 30 mg Tablet PO (19:44)
[2020-06-13] MEDS: trazodone 50 mg Tablet PO (19:44)
[2020-06-13 22:00] VITALS: BP 124/81; PULSE 102; RESP 16; TEMP 36.4; O2SAT 98
[2020-06-14 02:40] VITALS: BMI 31.0
[2020-06-14 06:00] VITALS: BP 113/78; PULSE 87; RESP 19; TEMP 36.4; O2SAT 94
[2020-06-14] MEDS: levothyroxine 100 mcg Tablet PO (06:10)
[2020-06-14] MEDS: lisinopril 5 mg Tablet PO (08:42)
[2020-06-14] MEDS: divalproex DR 500 mg Tablet PO ×2 (08:42→20:22)
[2020-06-14] MEDS: metoprolol succinate ER (24 HR) 25 mg Tablet PO (08:42)
--- NOTE | 2020-06-14 10:08 | P.PN_ITS ---
Subjective NPU Subjective: Interval history: Continues to report significant depressive symptoms, mood congruent auditory hallucinations Denies any interval suicidal ideation Reports that his appetite is been good States that he slept last night, feels rested Reports being compliant with his medication, denies any medication side effects States that he felt like he needed as needed medication a couple occasions because of worsening command auditory hallucinations Mental Status Exam MSE Comments: Sitting in the day room, disheveled, unkempt, calm, cooperative, interactive, good eye contact Psychomotor activity is decreased, no agitation Speech is somewhat slow, normal volume, spontaneous, fair articulation, not pressured I feel depressed, congruent affect, not labile Alert and oriented to person, place, time, situation Memory and concentration appear to be fair to intact per interview Thought process, linear, no flight of ideas, no looseness of associations Thought content, no delusions, no hallucinations, no suicidal or homicidal ideation Insight and judgment appear to be fair Vitals/I&O/Wt Last Vital Signs Temp 97.5 F L 06/14/20 06:00 Pulse 87 06/14/20 06:00 Resp 19 H 06/14/20 06:00 BP 113/78 06/14/20 06:00 Pulse Ox 94 06/14/20 06:00 Weight last 48 hrs Weight 95.254 kg Weight 95.254 kg Data NPU : 06/12/20 21:19 06/12/20 21:19 A&P Assessment and plan (1) Suicidal ideation: Status: Acute (2) Schizoaffective disorder: Status: Acute Qualifiers: Schizoaffective disorder type: unspecified Qualified Code(s): F25.9 - Schizoaffective disorder, unspecified Additional A&P Information Continues to report worsening depressive symptoms, command auditory hallucinations, denies any suicidal ideation, may need to consider changing antipsychotic or adding additional augmentation with another antipsychotic. INCREASE to mirtazapine 45 mg at bedtime targeting depressive symptoms CONTINUE other current medication Involuntary Hold Information 96 Hour Hold: 96 Hour Involuntary Admission: No Attestations NPU Medical Necessity Statement*: Continues to require psychiatric hospitalization for medication stabilization Coding Level of Care Code Acute Center Medical Director for Keny Ying Diagnoses Suicidal ideation R45.851 Schizoaffective disorder F25.9 Schizoaffective disorder type: unspecified
[2020-06-14] MEDS: nicotine 2 mg Gum BUCCAL ×5 (11:39→22:15)
[2020-06-14 13:06] VITALS: BP 116/80; PULSE 86; RESP 18; TEMP 36.4
[2020-06-14] MEDS: risperiDONE 1 mg Tablet PO ×2 (13:47→18:09)
--- NOTE | 2020-06-14 13:48 | PC.NURSE ---
PRN RISPERIDONE ADMINISTERED RISPERIDONE 1MG PO PER PATIENTS REQUEST FOR HALLUCINATIONS.
--- NOTE | 2020-06-14 18:10 | PC.NURSE ---
PRN RISPERIDONE ADMINISTERED RISPERIDONE 1MG PO PER PATIENTS REQUEST FOR HALLUCINATIONS. WILL MONITOR FOR MEDICATION EFFECTIVENESS.
[2020-06-14 20:01] VITALS: BP 121/74; PULSE 113; RESP 17; TEMP 36.9; O2SAT 96
[2020-06-14] MEDS: hyDROXYzine 25 mg Capsule 50 MG PO (20:21)
[2020-06-14] MEDS: mirtazapine 30 mg Tablet 45 MG PO (20:22)
[2020-06-15] MEDS: nicotine 2 mg Gum BUCCAL ×3 (01:56→11:38)
[2020-06-15 06:00] VITALS: BP 133/88; PULSE 98; RESP 1; TEMP 36.3; O2SAT 97
[2020-06-15] MEDS: levothyroxine 100 mcg Tablet PO (06:13)
[2020-06-15] MEDS: lisinopril 5 mg Tablet PO (07:37)
[2020-06-15] MEDS: divalproex DR 500 mg Tablet PO (07:37)
[2020-06-15] MEDS: metoprolol succinate ER (24 HR) 25 mg Tablet PO (07:38)
--- NOTE | 2020-06-15 11:20 | P.DS_ITS ---
Diagnoses at Discharge Discharge Diagnosis (1) Suicidal ideation: Status: Acute (2) Schizoaffective disorder: Status: Acute Qualifiers: Schizoaffective disorder type: unspecified Qualified Code(s): F25.9 - Schizoaffective disorder, unspecified Reason for Visit Reason for Visit: hearing voices Hospital Course Hospital Course Patient with multiple recent admissions with exacerbation of suicidal ideation but quickly reconstitutes presented to the emergency department with worsening suicidal ideation and also reporting command auditory hallucinations of voices telling him to hurt himself in the context of worsening depressive symptoms. Patient's home medications were continued and his mirtazapine was increased to mirtazapine 45 mg at bedtime with good effect. Patient had initially reported some ongoing command auditory hallucinations which resolved over the course of a day with patient also requiring a couple of as needed doses of risperidone. Of note, patient currently on maximal dosing for Seroquel 40 mg twice daily with possibility of needing to add a second antipsychotic in future if persistent perceptual disturbances. Patient participated in unit milieu with no reports of any behavioral disturbances. He was not suicidal at the time of discharge and did not appear to pose an imminent threat of harm to self or others. Low to moderate risk of harm to self and others given no current suicidal ideation and no current report of any psychiatric symptoms although patient's risk may be elevated if he is noncompliant with medication medication management follow-up leading to unexpected, impulsive behavior. Patient's history of developmental delay also predisposes to occasional behavioral episodes. Risk mitigation included psychiatric hospitalization for observation for any worsening suicidal ideation or behaviors with medication stabilization. Patient stable to communicate his understanding of the need to be compliant with his medication and medication management follow-up as well as use of adaptive coping strategies in order to further mitigate his risk of harm to self and others. Involuntary Hold Information 96 Hour Hold: 96 Hour Involuntary Admission: No Mental Status Exam MSE Comments: Sitting on his bed, appropriately groomed and dressed, polite, interactive, good eye contact Psychomotor activity is neither increased nor decreased, no agitation Speech is normal rate, normal volume, spontaneous, fair articulation, not pressured I feel much better, full range of affect, not labile Alert and oriented to person, place, time, situation Memory and concentration appear to be fair to intact per interview Thought process, linear, no flight of ideas, no looseness of associations Thought content, no delusions, no hallucinations, no suicidal or homicidal ideation Insight and judgment appear to be fair Discharge Data Vitals: Last Vital Signs Temp 97.3 F L 06/15/20 06:00 Pulse 98 06/15/20 06:00 Resp 1 L 06/15/20 06:00 BP 133/88 06/15/20 06:00 Pulse Ox 97 06/15/20 06:00 Discharge Plan Discharge Patient Disposition: Home Condition: Stable Prescriptions: New mirtazapine 30 mg Tablet 45 mg PO BEDTIME Qty: 30 RF: 0 Continued divalproex [Depakote] 500 mg Tablet,Delayed Release (Dr/Ec) 500 mg PO BID@0700,1900 30 Days Qty: 30 RF: 1 levothyroxine 100 mcg Tablet 100 mcg PO DAILY@0700 30 Days Qty: 30 RF: 1 metoprolol succinate 25 mg Tablet Extended Release 24 Hr 25 mg PO DAILY@0700 30 Days Qty: 30 RF: 1 risperidone [Risperdal] 1 mg Tablet 1 mg PO Q2H PRN (Reason: intensive hallucinations) 30 Days Qty: 30 RF: 1 hydroxyzine pamoate 25 mg Capsule 25 mg PO Q8H PRN (Reason: Anxiety) 30 Days Qty: 90 RF: 1 quetiapine 400 mg tablet 400 mg PO BID@0700,1900 RF: 0 lisinopril 5 mg Tablet 5 mg PO DAILY RF: 0 Discontinued mirtazapine 30 mg Tablet 30 mg PO BEDTIME 30 Days Qty: 30 RF: 1 Discharge Orders: Discharge Order (Routine); Ordered 06/15/20 Ordered By: Abdi Castorena Discharge Diet: Regular Discharge Activity: Resume usual activity Discharge Attestations NPU Time Spent in Discharge Care*: greater than 30 min Status at Discharge: Cognitive status at discharge: cognitively intact , Behavioral status at discharge: cooperative , Functional status at discharge: independent ambulation Overall status at discharge: patient is back to baseline Coding Level of Care Code Acute [place] for Keny Ying Diagnoses Suicidal ideation R45.851 Schizoaffective disorder F25.9 Schizoaffective disorder type: unspecified
[2020-06-15 11:27] VITALS: BP 133/88; PULSE 98; RESP 18; TEMP 36.3; O2SAT 97
[2020-06-15 14:00] VITALS: BP 108/69; PULSE 71; RESP 20; TEMP 36.9; O2SAT 98
[2020-06-15 14:21] VITALS: RESP 18
== END 2020-06-15 15:45 | disposition home or self-care (01) | DRG 885 ==
LOC: ER 21:26 → NP 22:53
PROVIDERS: Admitting Provider Psychiatry & Neurology Psychiatry; Emergency Provider Family Medicine; PCP Family Medicine; Visit Provider Psychiatry & Neurology Psychiatry
DX: F25.9 Schizoaffective disorder, unspecified (principal); R45.851 Suicidal ideations
CPT/HCPCS: 36415; 80053; 80164; 80306; 80307; 81003; 84443; 85025; 99285

== ENCOUNTER → 2020-07-07 13:22 | Outpatient (BNVA) | payer MEDICARE, MEDICAID, SELFPAY | PROVIDERS: PCP Family Medicine; Visit Provider Nurse Practitioner Psychiatric/Mental Health | DX: F25.1 Schizoaffective disorder, depressive type (principal) | CPT/HCPCS: 99214 ==

== ENCOUNTER 2020-08-03 16:21 | Inpatient (IN) | payer MEDICARE, MEDICAID, SELFPAY ==
[2020-08-03 16:30] VITALS: BP 113/67; PULSE 116; RESP 18; TEMP 36.9; O2SAT 97; BMI 31.0
[2020-08-03 17:37] LABS: Basophils % 0.7 %; Eosinophils # 0.3 10^3/uL (0.0-0.8); Eosinophils % 4.7 %; Hematocrit 45.9 % (42.0-52.0); Hemoglobin 15.1 g/dL (11.7-16.6); Lymphocytes # 2.3 10^3/uL (0.8-4.8); Lymphocytes % 36.7 %; Mean Corpuscular HGB Conc 32.9 g/dL (30.0-36.0); Mean Corpuscular Hemoglobin 30.8 pg (28.0-34.0); Mean Corpuscular Volume 93.5 fL (80-94); Mean Platelet Volume 10.1 fL (7.4-10.4); Monocytes # 0.4 10^3/uL (0.2-0.9); Monocytes % 7.2 %; Neutrophils % 50.4 %; Nucleated Red Blood Cells % 0 %; Platelet Count 224 10^3/cmm (130-400); Red Blood Count 4.91 10^6/uL (4.1-5.3); Red Cell Distribution Width 13.1 % (12.1-15.1); White Blood Count 6.2 10^3/uL (4.0-10.0)
[2020-08-03 17:48] LABS: Amphetamines Screen Urine Negative (Negative); Barbiturates Screen Urine Negative (Negative); Benzodiazepines Screen Urine Negative (Negative); Cocaine Screen Urine Negative (Negative); Opiate Screen Urine Negative (Negative); PCP Screen Urine Negative (Negative); THC Screen Urine Negative (Negative)
[2020-08-03 18:04] LABS: Alanine Aminotransferase 22 U/L (0-41); Albumin Level 4.6 g/dL (3.5-5.2); Alkaline Phosphatase 31 IU/L (40-130); Anion Gap 15.2 (5-19); Aspartate Amino Transferase 17 U/L (0-40); Blood Urea Nitrogen 12 mg/dL (6-20); Calcium 8.8 mg/dL (8.5-10.5); Carbon Dioxide 23 mmol/L (22-29); Chloride 103 mmol/L (98-107); Globulin 2.2 g/dL (1.3-4.6); Glomerular Filtration Rate 99.8 mL/min (90-130); Glucose 94 mg/dL (65-115); Osmolality Calculated 284 mOsm/kg (285-295); Potassium 4.2 mmol/L (3.5-5.1); Sodium 137 mmol/L (136-145); Total Bilirubin 0.4 mg/dL (0.15-1.2); Total Protein 6.8 g/dL (6.6-8.7)
[2020-08-03 18:05] LABS: Acetaminophen < 5.0 ug/mL (10-30); Alcohol Level < 10 mg/dL (0-10); Salicylate < 0.3 mg/dL (3-10)
--- NOTE | 2020-08-03 18:19 | ED_ITS ---
HPI - Psych General: Chief Complaint: Psychiatric Symptoms Stated Complaint: thoughts of self harm, auditory hallucinations Time Seen by Provider: 08/03/20 16:40 Source: patient Mode of arrival: ambulatory Limitations: no limitations History of Present Illness: HPI Narrative: This is a 30-year-old male with a history of schizoaffective disorder who presents to the emergency department with suicidal ideation. He says he has a longstanding history of auditory hallucinations and the hallucinations are getting worse. He states that the voices are telling him to kill himself and now he is actually considering doing well voices are telling him. He denies a plan but he is worried that the fact that he is actually considering what he is saying is a sign that he needs more help. He therefore is here to be evaluated by the psychiatrist and helped with his current condition. MD complaint: suicidal ideation Onset (ago): day(s) Duration: constant History of same: Yes Relieving factors: none Exacerbating factors: none Associated psychiatric symptoms: suicidal ideation and auditory hallucinations Associated symptoms: Reports auditory hallucinations, depression and suicidal ideation Review of Systems General: Reports: 10 or more systems reviewed and unremarkable except in HPI and below Psych: Reports: depression, auditory hallucinations and suicidal ideation [facility] ED PFSH: Medical History (Reviewed 08/04/20 @ 00:48 by Mable Perkins MD, [facility] [place]) Depressive disorder Hallucination Schizoaffective disorder Schizoaffective disorder, depressive type Physical Exam Const: COMMON NORMALS: no acute distress, average body habitus, patient oriented x3, no limitations, healthy appearing, alert and well nourished HENMT: COMMON NORMALS: normocephalic, atraumatic and moist oral mucous membranes HEAD & SCALP: normocephalic and atraumatic Neck/C-Spine: COMMON NORMALS: no meningeal signs and no JVD Resp: COMMON NORMALS: normal respiratory effort, No retractions, No use of accessory muscles, clear to auscultation bilaterally and percussion normal AUSCULTATION: clear to auscultation bilaterally PERCUSSION: percussion normal Cardio: COMMON NORMALS: no JVD, regular rate, regular rhythm, S1 normal heart sound present, S2 normal heart sound present, No gallops present (Cardio), No clicks present (Cardio), No murmurs present (Cardio), No rub (Cardio) and Peripheral pulses 2+ throughout RATE: regular rate RHYTHM: regular rhythm HEART SOUNDS: S1 normal heart sound present and S2 normal heart sound present PERIPHERAL PULSES: Peripheral pulses 2+ throughout GI: COMMON NORMALS: Normal to inspection, nondistended, normoactive bowel sounds present, Soft to palpation, non-tender, No hepatosplenomegaly present, no masses and no bruits PALPATION: Yes Soft to palpation and Yes No hepatosplenomegaly present Extremity: COMMON NORMALS: normal to inspection, full ROM, capillary refill normal, no calf tenderness and no pedal edema Neuro: COMMON NORMALS: patient oriented x3 SENSORIUM/ORIENTATION: Yes alert MENINGEAL SIGNS: Yes no meningeal signs MDM - Psych MDM Narrative: Medical decision making narrative: 30-year-old male who presents to the emergency department with auditory hallucination and suicidal ideation. He is medically cleared and admitted to the neuropsychiatric unit for further evaluation and management. Patient remained stable and cooperative throughout his ED stay. Medical Records: Attestation: I reviewed the patient's medical records. Lab Data: Attestation: I reviewed the patient's lab results. Labs: Lab Results 08/03/20 08/03/20 08/03/20 Range/Units 17:25 17:25 17:25 WBC 6.2 (4.0-10.0) 10^3/ uL RBC 4.91 (4.1-5.3) 10^6/u L Hgb 15.1 (11.7-16.6) g/dL Hct 45.9 (42.0-52.0) % MCV 93.5 (80-94) fL MCH 30.8 (28.0-34.0) pg MCHC 32.9 (30.0-36.0) g/dL RDW 13.1 (12.1-15.1) % Plt Count 224 (130-400) 10^3/c mm MPV 10.1 (7.4-10.4) fL Neut % (Auto) 50.4 % Lymph % (Auto) 36.7 % Ashe % (Auto) 7.2 % Eos % (Auto) 4.7 % Baso % (Auto) 0.7 % Neut # (Auto) 3.10 (1.8-7.7) 10^3/u L Lymph # (Auto) 2.3 (0.8-4.8) 10^3/u L Ashe # (Auto) 0.4 (0.2-0.9) 10^3/u L Eos # (Auto) 0.3 (0.0-0.8) 10^3/u L Baso # (Auto) 0.0 (0.0-0.1) 10^3/u L Nucleated RBC % (a uto) 0 % Nucleated RBCs # 0.0 /100WBC Sodium 137 (136-145) mmol/L Potassium 4.2 (3.5-5.1) mmol/L Chloride 103 (98-107) mmol/L Carbon Dioxide 23 (22-29) mmol/L Anion Gap 15.2 (5-19) BUN 12 (6-20) mg/dL Creatinine 0.9 (0.7-1.2) mg/dL GFR Calculation 99.8 (90-130) mL/min Glucose 94 (65-115) mg/dL Calculated Osmolal ity 284 L (285-295) mOsm/k g Calcium 8.8 (8.5-10.5) mg/dL Total Bilirubin 0.4 (0.15-1.2) mg/dL AST 17 (0-40) U/L ALT 22 (0-41) U/L Alkaline Phosphata se 31 L (40-130) IU/L Total Protein 6.8 (6.6-8.7) g/dL Albumin 4.6 (3.5-5.2) g/dL Globulin 2.2 (1.3-4.6) g/dL Salicylates < 0.3 L (3-10) mg/dL Urine Opiates Scre en (Negative) ng/mL Acetaminophen < 5.0 L (10-30) ug/mL Ur Barbiturates Sc reen (Negative) ng/mL Valproic Acid 46.9 L (50-100) ug/mL Ur Phencyclidine S crn (Negative) ng/mL Ur Amphetamines Sc reen (Negative) ng/mL U Benzodiazepines Scrn (Negative) ng/mL Urine Cocaine Scre en (Negative) ng/mL U Marijuana (THC) Screen (Negative) ng/mL Ethyl Alcohol < 10 (0-10) mg/dL 08/03/20 Range/Units 17:25 WBC (4.0-10.0) 10^3/ uL RBC (4.1-5.3) 10^6/u L Hgb (11.7-16.6) g/dL Hct (42.0-52.0) % MCV (80-94) fL MCH (28.0-34.0) pg MCHC (30.0-36.0) g/dL RDW (12.1-15.1) % Plt Count (130-400) 10^3/c mm MPV (7.4-10.4) fL Neut % (Auto) % Lymph % (Auto) % Ashe % (Auto) % Eos % (Auto) % Baso % (Auto) % Neut # (Auto) (1.8-7.7) 10^3/u L Lymph # (Auto) (0.8-4.8) 10^3/u L Ashe # (Auto) (0.2-0.9) 10^3/u L Eos # (Auto) (0.0-0.8) 10^3/u L Baso # (Auto) (0.0-0.1) 10^3/u L Nucleated RBC % (a uto) % Nucleated RBCs # /100WBC Sodium (136-145) mmol/L Potassium (3.5-5.1) mmol/L Chloride (98-107) mmol/L Carbon Dioxide (22-29) mmol/L Anion Gap (5-19) BUN (6-20) mg/dL Creatinine (0.7-1.2) mg/dL GFR Calculation (90-130) mL/min Glucose (65-115) mg/dL Calculated Osmolal ity (285-295) mOsm/k g Calcium (8.5-10.5) mg/dL Total Bilirubin (0.15-1.2) mg/dL AST (0-40) U/L ALT (0-41) U/L Alkaline Phosphata se (40-130) IU/L Total Protein (6.6-8.7) g/dL Albumin (3.5-5.2) g/dL Globulin (1.3-4.6) g/dL Salicylates (3-10) mg/dL Urine Opiates Scre en Negative (Negative) ng/mL Acetaminophen (10-30) ug/mL Ur Barbiturates Sc reen Negative (Negative) ng/mL Valproic Acid (50-100) ug/mL Ur Phencyclidine S crn Negative (Negative) ng/mL Ur Amphetamines Sc reen Negative (Negative) ng/mL U Benzodiazepines Scrn Negative (Negative) ng/mL Urine Cocaine Scre en Negative (Negative) ng/mL U Marijuana (THC) Screen Negative (Negative) ng/mL Ethyl Alcohol (0-10) mg/dL Discharge Plan Discharge Patient Disposition: Admitted As Inpatient Admit Provider: Abdi Castorena Clinical Impression: Suicidal ideation, Auditory hallucinations Condition: Stable Coding Level of Care Code ED Medical Referral Coordinator for Keny Ying
[2020-08-03 19:25] VITALS: BP 133/84; PULSE 105; RESP 20; TEMP 37.1; O2SAT 96
[2020-08-03 20:00] VITALS: BP 133/84; PULSE 105; RESP 20; TEMP 37.1; O2SAT 96
[2020-08-03] MEDS: nicotine 2 mg Gum BUCCAL (20:13)
[2020-08-03 20:45] LABS: Valproic Acid Level 46.9 ug/mL (50-100)
[2020-08-03] MEDS: risperiDONE 1 mg Tablet PO (21:21)
--- NOTE | 2020-08-03 21:42 | PC.NURSE ---
2013: PT GIVEN NICORETTE GUM PER PT REQUESTED FOR NICOTINE GRAVING. 2120: PT GIVEN RISPERDAL 1MG PO GIVEN FOR AUDITORY HALLUCINATIONS.
--- NOTE | 2020-08-03 22:10 | PC.NURSE ---
pt resting quietly in room with both eyes closed
--- NOTE | 2020-08-04 02:08 | PC.NURSE ---
Skin check revealed no wounds or injuries.
[2020-08-04] MEDS: nicotine 2 mg Gum BUCCAL ×5 (04:48→19:51)
[2020-08-04 06:00] VITALS: BP 129/90; PULSE 112; RESP 16; TEMP 36.8; O2SAT 95
[2020-08-04] MEDS: metoprolol succinate ER (24 HR) 25 mg Tablet PO (06:17)
[2020-08-04] MEDS: levothyroxine 100 mcg Tablet PO (06:17)
[2020-08-04] MEDS: quetiapine 100 mg Tablet 200 MG PO ×2 (06:17→12:08)
[2020-08-04] MEDS: divalproex DR 500 mg Tablet PO ×2 (06:17→20:45)
[2020-08-04] MEDS: lisinopril 10 mg Tablet PO (06:17)
[2020-08-04] MEDS: risperiDONE 1 mg Tablet PO (09:49)
--- NOTE | 2020-08-04 09:51 | PC.NURSE ---
PRN RISPERDAL PT PRESENTED TO NURSE'S STATION VOICING C/O AUDITORY HALLUCINATIONS. PT REPORTS THAT THE VOICES ARE TELLING HIM TO HARM HIMSELF, BUT THAT HE HAS NO INTENT ON DOING SO. STAFF DISCUSSED IMPORTANCE OF PATIENT INFORMING NURSING STAFF IMMEDIATELY IF HE FEELS LIKE HARMING HIMSELF. PT DOES NOT APPEAR TO BE RESPONDING TO INTERNAL STIMULI AT THIS TIME. RISPERDAL 1 MG GIVEN PO. WILL CONTINUE TO MONITOR FOR MEDICATION EFFECTIVENESS.
--- NOTE | 2020-08-04 10:41 | PC.NURSE ---
PATIENT RESTING QUIETLY WITH EYES CLOSED. WILL CONT TO MONITOR, SUPPORT AND REDIRECT NEEDED
--- NOTE | 2020-08-04 12:08 | P.HP_ITS ---
Providers/Chief Complaint Admitting Physician: Abdi Castorena DO Primary Care Provider: Sp Flowers MD Chief Complaint: thoughts of self harm, auditory hallucinations HPI NPU History of Present Illness Real Black is a 30 year old male with history of schizoaffective disorder discharged from this inpatient psychiatry unit a little over a month ago presents under similar circumstances complaining of worsening auditory hallucinations telling him to harm himself. He denies acting on these auditory hallucinations and denies any current auditory hallucinations. He reports being compliant with his medication and denies any medication side effects and reports being compliant with medication management follow-up. He reports that his depressive symptoms and auditory hallucinations have been worsening over the past week. He denies any interval stressors. He continues to report intermittent depressive symptoms but denies any sustained low depressive episodes. Denies any changes in sleep or appetite. Meds NPU Home Medications Medication Instructions Recorded Confirmed Last Taken Type levothyroxine 100 mcg PO DAILY@0700 30 Days #30 05/21/20 08/03/20 08/03/20 Rx tab metoprolol succinate 25 mg PO DAILY@0700 30 Days #30 tab 05/21/20 08/03/20 08/03/20 Rx risperidone [Risperdal] 1 mg PO Q2H PRN 30 Days #30 tab 05/21/20 08/03/20 08/03/20 15:00 Rx hydroxyzine pamoate 25 mg capsule 25 mg PO Q8H PRN 30 Days #90 cap 07/07/20 08/03/20 08/03/20 12:43 Rx mirtazapine 30 mg tablet 45 mg PO BEDTIME #45 tab 07/07/20 08/03/20 08/02/20 Rx nicotine 21 mg/24 hr daily See Rx Instructions .ROUTE .COMPLEX 07/07/20 08/03/20 08/03/20 History transdermal patch Depakote 500 mg PO BID@0700,20 08/03/20 08/03/20 08/03/20 07:00 History acetaminophen 500 mg tablet 1,000 mg PO Q6H PRN 08/03/20 08/03/20 Unknown History lisinopril 10 mg PO DAILY@07 08/03/20 08/03/20 08/03/20 History quetiapine 200 mg PO BID@08/03/20 08/03/2021 12:00 History quetiapine 400 mg PO BEDTIME@20 08/03/20 08/03/20 08/02/20 History Allergies Allergy/AdvReac Type Severity Reaction Status Date / Time chlorpromazine Allergy Severe ALGY-Anaphy Verified 06/17/20 11:51 laxis haloperidol [From Haldol] Allergy Severe ALGY-Swell Verified 08/03/20 17:18 Lip/Tongue/Throat lurasidone [From Latuda] Allergy Severe ALGY-Swell Verified 08/03/20 17:18 Lip/Tongue/Throat olanzapine [From Zyprexa] Allergy Severe ALGY-Swell Verified 08/03/20 17:18 Lip/Tongue/Throat PFSH NPU PFSH: Medical History Depressive disorder Hallucination Schizoaffective disorder Schizoaffective disorder, depressive type Other Psychiatric History: Other Psychiatric History: Longstanding psychiatric history with multiple previous psychiatric admissions, followed by [facility]. Mental Status Exam MSE Comments: Lying in bed, disheveled, unkempt, calm, cooperative, interactive, good eye contact Psychomotor activity is decreased, no agitation Speech is slow, normal volume, spontaneous, fair articulation, not pressured I feel tired, congruent affect, not labile Alert and oriented to person, place, time, situation Memory and concentration appear to be fair to intact per interview Intellectual functioning appears to be below average to average at best based on vocabulary, interview Thought process, linear, no flight of ideas, no looseness of associations Thought content, no delusions, no hallucinations, no suicidal or homicidal ideation Insight and judgment appear to be fair Vitals/I&O/Wt Last Vital Signs Temp 98.2 F 08/04/20 06:00 Pulse 112 H 08/04/20 06:00 Resp 16 08/04/20 06:00 BP 129/90 08/04/20 06:00 Pulse Ox 95 08/04/20 06:00 Weight last 48 hrs Weight 95.254 kg Data NPU : 08/03/20 17:25 08/03/20 17:25 A&P Assessment and plan (1) Suicidal ideation: Status: Acute (2) Schizoaffective disorder, depressive type: Status: Chronic Additional A&P Information Worsening command auditory hallucinations with suicidal ideation, denies any int erval acute stressors, reports being compliant with medication. Patient's Depakote level at admission was 46.9 at the time of ER evaluation, LFTs were unremarkable VOLUNTARY ADMIT to inpatient psychiatry unit RESTART home medications Encourage patient to participate in unit activities to include group sessions, unit milieu Involuntary Hold Information 96 Hour Hold: 96 Hour Involuntary Admission: No Attestations NPU Medical Necessity Statement*: Require psychiatric hospitalization for medication stabilization and coordination for safe discharge Anticipate hospital stay to exceed 2 midnights Time Spent in Patient Care: Greater than 35 minutes (>than 50% of time spent in counselling and/or direct pt care on unit) . Coding Level of Care Code Acute [place] Operator Helper for Keny Ying Diagnoses Suicidal ideation R45.851 Schizoaffective disorder, depressive type F25.1
[2020-08-04 14:00] VITALS: BP 117/65; PULSE 116; RESP 20; TEMP 37.1; O2SAT 96
[2020-08-04 19:49] VITALS: BP 133/66; PULSE 104; RESP 18; TEMP 36.4; O2SAT 97
[2020-08-04] MEDS: quetiapine 100 mg Tablet 400 MG PO (20:44)
[2020-08-04] MEDS: mirtazapine 30 mg Tablet 45 MG PO (20:45)
--- NOTE | 2020-08-04 21:40 | PC.NURSE ---
patient request Nicotine Gum at 19:48 . Patient given Nicorette 2mg gum at 1951.
[2020-08-05] MEDS: nicotine 2 mg Gum BUCCAL ×6 (05:49→19:45)
[2020-08-05 06:00] VITALS: BP 114/78; PULSE 90; RESP 16; TEMP 36.6; O2SAT 97
[2020-08-05] MEDS: levothyroxine 100 mcg Tablet PO (06:24)
[2020-08-05] MEDS: metoprolol succinate ER (24 HR) 25 mg Tablet PO (06:24)
[2020-08-05] MEDS: lisinopril 10 mg Tablet PO (06:24)
[2020-08-05] MEDS: divalproex DR 500 mg Tablet PO ×2 (06:25→21:07)
[2020-08-05] MEDS: quetiapine 100 mg Tablet 200 MG PO ×2 (06:25→11:01)
[2020-08-05 14:00] VITALS: BP 101/66; PULSE 111; RESP 18; TEMP 36.9; O2SAT 94
--- NOTE | 2020-08-05 14:27 | P.PN_ITS ---
Subjective NPU Subjective: Interval history: Reports improving mood symptoms, denies any interval suicidal ideation Denies any interval auditory or visual destinations, denies any delusions Reports tolerating his home medication well with no reports of any medication side effects Per staff report, no interval behavioral disturbances Mental Status Exam MSE Comments: Sitting on a bench next to nurse station, calm, cooperative, appropriately dressed, interactive, good eye contact Psychomotor activity is decreased, no agitation Speech is somewhat slow, normal volume, spontaneous, fair articulation, not pressured I feel a little better, congruent affect, not labile Alert and oriented to person, place, time, situation Memory and concentration appear to be fair to intact per interview Thought process, linear, no flight of ideas, no looseness of associations Thought content, no delusions, no hallucinations, no suicidal or homicidal ideation Insight and judgment appear to be fair Vitals/I&O/Wt Last Vital Signs Temp 97.9 F 08/05/20 06:00 Pulse 90 08/05/20 06:00 Resp 16 08/05/20 06:00 BP 114/78 08/05/20 06:00 Pulse Ox 97 08/05/20 06:00 Weight last 48 hrs Weight 95.254 kg Data NPU : 08/03/20 17:25 08/03/20 17:25 A&P Assessment and plan (1) Suicidal ideation: Status: Acute (2) Schizoaffective disorder, depressive type: Status: Chronic Additional A&P Information Reports some improvement, denies any interval psychotic symptoms, transient depressed symptoms with no interval suicidal ideation CONTINUE current medication, continue to monitor Involuntary Hold Information 96 Hour Hold: 96 Hour Involuntary Admission: No Attestations NPU Medical Necessity Statement*: Requires ongoing psychiatric hospitalization for medication stabilization, coordination for safe discharge Coding Level of Care Code Acute Gaming Director for juani Fwd Diagnoses Suicidal ideation R45.851 Schizoaffective disorder, depressive type F25.1
[2020-08-05 19:52] VITALS: BP 135/84; PULSE 106; RESP 16; TEMP 36.4; O2SAT 95
[2020-08-05] MEDS: quetiapine 100 mg Tablet 400 MG PO (21:07)
[2020-08-05] MEDS: acetaminophen 325 mg Tablet 650 MG PO (21:07)
[2020-08-05] MEDS: mirtazapine 30 mg Tablet 45 MG PO (21:08)
--- NOTE | 2020-08-05 21:12 | PC.NURSE ---
Addendum entered by Paulina Strong RN 08/06/20 01:05: follow up 2140-pt resting, reports decrease of headache to a 1-2, says he is feeling much better. Original Note: PRN Tylenol 650mg PO Tylenol given for headache rated 5-6 on a 1-10 pain scale, will continue to observe
--- NOTE | 2020-08-06 03:53 | PC.NURSE ---
PM ASSESSMENT PT REPORTED A HEADACHE EARLY IN THE EVENING, RECEIVED TYLENOL, AND HAS RESTED SINCE.V/S ARE WNL, PT DENIES AH/VH/SI/HI. STATES, IM READY TO GO HOME TOMORROW. PT IS NOT ANXIOUS, INTERACTS WITH STAFF APPROPRIATELY, AND HAS RESTED WELL. WILL CONTINUE TO OBSERVE
[2020-08-06] MEDS: nicotine 2 mg Gum BUCCAL ×2 (05:46→08:25)
[2020-08-06 05:51] VITALS: BP 120/76; PULSE 102; RESP 17; TEMP 36.3; O2SAT 96
[2020-08-06] MEDS: quetiapine 100 mg Tablet 200 MG PO (06:20)
[2020-08-06] MEDS: lisinopril 10 mg Tablet PO (06:20)
[2020-08-06] MEDS: divalproex DR 500 mg Tablet PO (06:20)
[2020-08-06] MEDS: levothyroxine 100 mcg Tablet PO (06:20)
[2020-08-06] MEDS: metoprolol succinate ER (24 HR) 25 mg Tablet PO (06:20)
--- NOTE | 2020-08-06 10:25 | PC.SOCIAL ---
IMM completed with pt today 08/06/20 @ 1018. Copy of rights given to pt.
--- NOTE | 2020-08-06 10:28 | PM.NDC ---
Diagnoses at Discharge Discharge Diagnosis (1) Suicidal ideation: Status: Acute (2) Schizoaffective disorder, depressive type: Status: Chronic Reason for Visit Reason for Visit: thoughts of self harm, auditory hallucinations Hospital Course Hospital Course 30 year old male with history of schizoaffective disorder discharged from this inpatient psychiatry unit a little over a month ago presents under similar circumstances complaining of worsening auditory hallucinations telling him to harm himself. He denies acting on these auditory hallucinations and denies any current auditory hallucinations. He reports being compliant with his medication and denies any medication side effects and reports being compliant with medication management follow-up. Patient continued to report some depressive symptoms but denied any auditory hallucinations at the time of initial evaluation. He was continued on his home medications and quickly reconstituted. He participated in unit milieu and group sessions with no reports of any behavioral disturbances. He was denying any psychotic symptoms and denied any suicidal ideation at the time of discharge and did not appear to pose an imminent threat of harm to self or others. Low to moderate risk of harm to self and others given no current psychotic symptoms or suicidal ideation although patient's risk may be elevated if he is noncompliant with medication medication management follow-up leading to unexpected, impulsive behavior. Patient's history of developmental delay also predisposes to occasional behavioral episodes. Risk mitigation included psychiatric hospitalization for observation for any worsening suicidal ideation or behaviors with medication stabilization. Patient was able to communicate his understanding of the need to be compliant with his medication and medication management follow-up as well as use of adaptive coping strategies in order to further mitigate his risk of harm to self and others. Involuntary Hold Information 96 Hour Hold: 96 Hour Involuntary Admission: No Mental Status Exam MSE Comments: Appropriately dressed, somewhat unkempt but wearing appropriate hospital attire, calm, cooperative, good eye contact Psychomotor activity is neither increased nor decreased, no agitation Speech is normal rate, normal volume, spontaneous, fair articulation, not pressured I feel good, congruent affect, not labile Alert and oriented to person, place, time, situation Memory and concentration appear to be fair to intact per interview Thought process, linear, no flight of ideas, no looseness of associations Thought content, no delusions, no hallucinations, no suicidal or homicidal ideation Insight and judgment appear to be fair Discharge Data Vitals: Last Vital Signs Temp 97.3 F L 08/06/20 05:51 Pulse 102 H 08/06/20 05:51 Resp 17 04/15/21 05:51 BP 120/76 08/06/20 05:51 Pulse Ox 96 08/06/20 05:51 Discharge Plan Discharge Patient Disposition: Home Condition: Stable Prescriptions: Continued nicotine 21 mg/24 hr patch 24 hour See Rx Instructions .ROUTE .COMPLEX RF: 0 hydroxyzine pamoate 25 mg capsule 25 mg PO Q8H PRN (Reason: Anxiety) 30 Days Qty: 90 RF: 1 mirtazapine 30 mg tablet 45 mg PO BEDTIME Qty: 45 RF: 1 acetaminophen [Tylenol Extra Strength] 500 mg tablet 1,000 mg PO Q6H PRN (Reason: Pain) RF: 0 levothyroxine 100 mcg Tablet 100 mcg PO DAILY@0700 30 Days Qty: 30 RF: 1 metoprolol succinate 25 mg Tablet Extended Release 24 Hr 25 mg PO DAILY@0700 30 Days Qty: 30 RF: 1 risperidone [Risperdal] 1 mg Tablet 1 mg PO Q2H PRN (Reason: intensive hallucinations) 30 Days Qty: 30 RF: 1 lisinopril 10 mg Tablet 10 mg PO DAILY@07 RF: 0 quetiapine 200 mg tablet 200 mg PO BID@07,12 RF: 0 Depakote 500 mg tablet,delayed release (DR/EC) 500 mg PO BID@0700,20 RF: 0 quetiapine 400 mg tablet 400 mg PO BEDTIME@20 RF: 0 Discharge Orders: Discharge Order (Routine); Ordered 08/06/20 Ordered By: Abdi Castorena Referrals: Patria Mckinney APRN [Nurse Practitioner] - 08/18/20 2:30 pm (Appointment Via phone. ) Discharge Diet: Regular Discharge Activity: Resume usual activity Patient Instructions: Opioid Safety Discharge Attestations NPU Time Spent in Discharge Care*: greater than 30 min Status at Discharge: Cognitive status at discharge: cognitively intact, Behavioral status at discharge: cooperative, Functional status at discharge: independent ambulation Overall status at discharge: patient is back to baseline Coding Level of Care Code Acute g [facility] note Diagnoses Suicidal ideation R45.851 Schizoaffective disorder, depressive type F25.1
[2020-08-06 10:30] VITALS: BP 120/76; PULSE 102; RESP 17; TEMP 36.3; O2SAT 96
== END 2020-08-06 11:37 | disposition home or self-care (01) | DRG 885 ==
LOC: ER 17:05 → NP 18:54
PROVIDERS: Physician Assistant; Admitting Provider Psychiatry & Neurology Psychiatry; Emergency Provider Family Medicine; PCP Family Medicine; Visit Provider Psychiatry & Neurology Psychiatry
DX: F25.1 Schizoaffective disorder, depressive type (principal); R45.851 Suicidal ideations
CPT/HCPCS: 80053; 80164; 80306; 80307; 85025; 99285

== ENCOUNTER → 2020-08-18 14:51 | Outpatient (BNVA) | payer MEDICARE, MEDICAID, SELFPAY | PROVIDERS: PCP Family Medicine; Visit Provider Nurse Practitioner Psychiatric/Mental Health | DX: F25.1 Schizoaffective disorder, depressive type (principal) | CPT/HCPCS: 99213 ==

== ENCOUNTER 2020-09-03 23:38 | Emergency (ER) | payer MEDICARE, MEDICAID, SELFPAY ==
[2020-09-03 23:44] VITALS: BP 143/105; PULSE 120; RESP 18; TEMP 36.7; O2SAT 97; BMI 31.7
--- NOTE | 2020-09-04 00:11 | ED_ITS ---
HPI - General Adult General: Chief complaint: General Medical Stated complaint: inner thigh pain Time Seen by Provider: 09/03/20 23:50 Source: patient Mode of arrival: ambulatory Limitations: no limitations History of Present Illness: HPI narrative: Patient is a 30-year-old male who presents to ED today with a complaint of right groin pain. Patient tells me he was outside and went to sit on a bench when he immediately noticed pain in his right groin. Pain does not radiate down into his lower extremity. He is not complaining of abdominal pain, nausea, vomiting. He has not noticed any pain or redness or swelling to his scrotum. No numbness, tingling, color/temperature changes to his lower extremity. He has not noticed any masses or bulges to the groin. Onset (ago): hour(s) Location: pelvis (R groin) Radiation: non-radiation Relieving factors: movement Exacerbating factors: immobilization Associated symptoms: Reports no associated symptoms; Deny chest pain, dyspnea, malaise, nausea or vomiting Treatments prior to arrival: none Review of Systems Const: Denies: fever(s), chills, fatigue or malaise Card: Denies: chest pain Resp: Denies: dyspnea GI: Denies: abdominal pain, nausea, vomiting or diarrhea : Denies: flank pain, dysuria, difficulty starting urination, change in urine stream, hematuria, genital pain, penile discharge, testicular pain, testicular mass or scrotal swelling Musc: Denies: back pain Neuro: Denies: numbness in extremities, weakness in extremities, sensory yanique nges or difficulty walking [facility] ED PFSH: Medical History Depressive disorder Hallucination Schizoaffective disorder Schizoaffective disorder, depressive type Physical Exam Const: COMMON NORMALS: no acute distress, patient oriented x3, no limitations and alert GENERAL APPEARANCE: cooperative NUTRITIONAL APPEARANCE: overweight ORIENTATION/CONSCIOUSNESS: Yes awake, Yes oriented to person, Yes oriented to place and Yes oriented to time GI: COMMON NORMALS: Normal to inspection, nondistended, normoactive bowel sounds present, Soft to palpation, non-tender, No hepatosplenomegaly present and no masses INSPECTION: Yes normal to inspection AUSCULTATION: Yes normoactive bowel sounds PALPATION: Yes Soft to palpation and Yes No hepa tosplenomegaly present : COMMON NORMALS: Yes no CVA tenderness BLADDER/KIDNEY EXAM: Yes no CVA tenderness SCROTUM: Yes testes descended bilaterally, No erythematous, No e dematous and No scrotal swelling TESTES: Yes testicular lie normal, No testicular swelling and No testicular tenderness OTHER: TTP R groin; no inguinal hernia appreciated; no swelling; femoral and distal pulses normal Back/Pelvis: COMMON NORMALS: no CVA tenderness Extremity: COMMON NORMALS: normal to inspection, full ROM and capillary refill normal GENERAL: Yes normal exam except as noted Neuro: COMMON NORMALS: patient oriented x3, moves all extremities, no focal motor deficits and no sensory deficits noted SENSORIUM/ORIENTATION: Yes alert, Yes oriented to person, Yes oriented to place and Yes oriented to time Skin: COMMON NORMALS: no rashes or lesions noted GENERAL SKIN EXAM: no rashes or lesions noted Course Vital Signs: Vital signs: Vital Signs Temperature 98.1 F 09/03/20 23:44 Pulse Rate 122 H 09/04/20 00:15 Respiratory Rate 18 09/04/20 00:15 Blood Pressure 152/101 09/04/20 00:15 Pulse Oximetry 97 09/04/20 00:15 MDM - General Adult MDM Narrative: Medical decision making narrative: DDx groin strain vs small inguinal hernia. Recommend conservative management and follow up with PCP. Return to ED precautions given. Discharge Plan Discharge Patient Disposition: Home Clinical Impression: Strain of right groin Condition: Stable Prescriptions: New ibuprofen 800 mg tablet 800 mg PO Q8H PRN (Reason: pain) Qty: 20 RF: 0 No Action acetaminophen [Tylenol Extra Strength] 500 mg tablet 1,000 mg PO Q6H PRN (Reason: Pain) RF: 0 Depakote 500 mg tablet,delayed release (DR/EC) 500 mg PO BID Qty: 60 RF: 1 hydroxyzine pamoate 25 mg capsule 25 mg PO Q8H PRN (Reason: Anxiety) 30 Days Qty: 90 RF: 1 mirtazapine 30 mg tablet 45 mg PO BEDTIME Qty: 45 RF: 1 quetiapine 200 mg tablet 200 mg PO BID@07,12 Qty: 60 RF: 1 quetiapine 400 mg tablet 400 mg PO BEDTIME@20 Qty: 30 RF: 1 risperidone [Risperdal] 1 mg tablet 1 mg PO Q2H MDD 4 mg PRN (Reason: psychosis) Qty: 30 RF: 3 levothyroxine 100 mcg Tablet 100 mcg PO DAILY@0700 30 Days Qty: 30 RF: 1 metoprolol succinate 25 mg Tablet Extended Release 24 Hr 25 mg PO DAILY@0700 30 Days Qty: 30 RF: 1 lisinopril 10 mg Tablet 10 mg PO DAILY@07 RF: 0 Discharge Orders: Discharge ED (Routine); Ordered 09/04/20 Ordered By: Ambar Dhillon Referrals: Sp Flowers MD [Primary Care Provider] - Patient Instructions: Groin Strain (ED) Activity Restrictions/Additional Instructions: As we discussed please treat the area with ice, anti-inflammatory medication, and elevation as well as rest. Please follow-up with your primary care provider in 5 to 7 days if pain persists. As we discussed please return to the emergency department for worsening or severe pain, overlying skin redness or warmth, inability to pass gas or have a bowel movement, severe pain or swelling to your scrotum, fevers, or any other concerns you may have. Coding Level of Care Code ED Licensed Optician for Keny Ying
[2020-09-04 00:15] VITALS: BP 152/101; PULSE 122; RESP 18; O2SAT 97
[2020-09-04] MEDS: ibuprofen 800 mg tablet PO (00:19)
[2020-09-04 00:20] VITALS: BP 144/102; PULSE 119; RESP 17; O2SAT 96
== END 2020-09-04 00:21 | disposition home or self-care (01) ==
PROVIDERS: Emergency Provider Physician Assistant; PCP Family Medicine
DX: S39.011A Strain of muscle, fascia and tendon of abdomen, initial encounter (principal); X58.XXXA Exposure to other specified factors, initial encounter
CPT/HCPCS: 99282

== ENCOUNTER → 2020-09-15 08:41 | Outpatient (BNVA) | payer MEDICARE, MEDICAID, SELFPAY | PROVIDERS: PCP Family Medicine; Visit Provider Nurse Practitioner Psychiatric/Mental Health | DX: F25.1 Schizoaffective disorder, depressive type (principal); Z79.899 Other long term (current) drug therapy; Z51.81 Encounter for therapeutic drug level monitoring | CPT/HCPCS: 99214 ==

== ENCOUNTER → 2020-09-17 09:07 | Outpatient (BNVA) | payer MEDICARE, MEDICAID, SELFPAY | PROVIDERS: PCP Family Medicine; Visit Provider Nurse Practitioner Psychiatric/Mental Health | DX: Z51.81 Encounter for therapeutic drug level monitoring (principal); Z79.899 Other long term (current) drug therapy | CPT/HCPCS: 80061; 80164; 83036 ==

== ENCOUNTER 2020-09-23 21:34 | Inpatient (IN) | payer MEDICARE, MEDICAID, SELFPAY ==
[2020-09-23 21:43] VITALS: BP 132/82; PULSE 120; RESP 18; TEMP 36.6; O2SAT 97; BMI 32.5
[2020-09-23 21:55] LABS: Add Urine Microscopic? NO; Charge for UA Resulting for Rev
[2020-09-23 21:58] LABS: Bilirubin Urine Neg (Negative); Blood Urine Neg (Negative); Glucose Urine UA Norm (Normal); Ketones Urine Negative (Negative); Leukocyte Esterase Urine Negative (Negative); Nitrate Urine Negative (Negative); Protein Urine Neg (Negative); Urine Appearance Clear (CLEAR); Urine Color Yellow (Yellow); Urobilinogen Urine Norm (Negative); pH Urine 7 (5-7)
[2020-09-23 22:03] LABS: Basophils % 0.5 %; Eosinophils # 0.2 10^3/uL (0.0-0.8); Eosinophils % 1.9 %; Hematocrit 45.9 % (42.0-52.0); Hemoglobin 15.9 g/dL (11.7-16.6); Lymphocytes # 3.3 10^3/uL (0.8-4.8); Lymphocytes % 38.9 %; Mean Corpuscular HGB Conc 34.6 g/dL (30.0-36.0); Mean Corpuscular Hemoglobin 31.6 pg (28.0-34.0); Mean Corpuscular Volume 91.3 fL (80-94); Mean Platelet Volume 10.1 fL (7.4-10.4); Monocytes # 0.5 10^3/uL (0.2-0.9); Monocytes % 5.3 %; Neutrophils # 4.53 10^3/uL (1.8-7.7); Neutrophils % 52.9 %; Nucleated Red Blood Cells % 0 %; Platelet Count 221 10^3/cmm (130-400); Red Blood Count 5.03 10^6/uL (4.1-5.3); Red Cell Distribution Width 12.7 % (12.1-15.1); White Blood Count 8.5 10^3/uL (4.0-10.0)
[2020-09-23 22:06] LABS: Amphetamines Screen Urine Negative (Negative); Barbiturates Screen Urine Negative (Negative); Benzodiazepines Screen Urine Negative (Negative); Cocaine Screen Urine Negative (Negative); Opiate Screen Urine Negative (Negative); PCP Screen Urine Negative (Negative); THC Screen Urine Negative (Negative)
[2020-09-23 22:30] LABS: Alanine Aminotransferase 23 U/L (0-41); Alkaline Phosphatase 36 IU/L (40-130); Anion Gap 16.9 (5-19); Aspartate Amino Transferase 16 U/L (0-40); Blood Urea Nitrogen 16 mg/dL (6-20); Calcium 8.9 mg/dL (8.5-10.5); Carbon Dioxide 22 mmol/L (22-29); Chloride 101 mmol/L (98-107); Globulin 2.7 g/dL (1.3-4.6); Glomerular Filtration Rate 159.3 mL/min (90-130); Glucose 93 mg/dL (65-115); Osmolality Calculated 283 mOsm/kg (285-295); Potassium 3.9 mmol/L (3.5-5.1); Sodium 136 mmol/L (136-145); Thyroid Stimulating Hormone 3.27 uIU/mL (0.27-4.20); Total Bilirubin 0.2 mg/dL (0.15-1.2); Total Protein 7.7 g/dL (6.6-8.7)
[2020-09-23 22:32] LABS: Acetaminophen < 5.0 ug/mL (10-30); Alcohol Level < 10 mg/dL (0-10); Salicylate < 0.3 mg/dL (3-10)
--- NOTE | 2020-09-23 23:01 | ED_ITS ---
HPI - Psych General: Chief Complaint: Psychiatric Symptoms Stated Complaint: SI Time Seen by Provider: 09/23/20 21:41 History of Present Illness: HPI Narrative: The patient is a 30-year-old male with past medical history schizoaffective disorder who comes to the ER complaining of suicidal ideations. No plan. Denies alcohol and drugs. He says he has been having thoughts that he is worthless. MD complaint: suicidal ideation and feels depressed Duration: constant History of same: Yes Associated symptoms: Reports depression If self harm: admits thoughts of self harm Review of Systems General: Reports: 10 or more systems reviewed and unremarkable except in HPI and below Const: Denies: fatigue Eyes: Denies: change in vision, blurry vision or eye redness ENMT: Denies: throat pain, swelling of lips/tongue, ear or mastoid pain or nasal congestion Card: Denies: chest pain, palpitations, irregular heart rhythm, edema, dyspnea on exertion or orthopnea Resp: Denies: dyspnea, productive cough or non-productive cough GI: Denies: abdominal pain, diarrhea or GI cramping : Denies: flank pain, urinary frequency or urinary urgency Musc: Denies: neck pain, back pain, extremity pain, joint pain, joint redness, limited range of motion or muscle weakness Skin/Breast: Denies: rash, pruritus, erythema, skin pain or skin tenderness Neuro: Denies: headache(s), numbness in extremities, weakness in extremities, sensory changes, difficulty walking, dizziness, confusion or Slurred speech present Psych: Reports: anxiety and depression Endo: Denies: polyuria All/Imm: Denies: urticaria, throat swelling or tongue swelling PFSH ED PFSH: Medical History Depressive disorder Hallucination Schizoaffective disorder Schizoaffective disorder, depressive type Social History (Updated 09/15/20 @ 14:25 by Kristel Young LPN) Smoking and tobacco status: current every day smoker cigarettes Packs smoked per day: 1 Years cigarettes smoked: 11 Quit status (tobacco): considering quitting Second hand smoke exposure: Yes Physical Exam Const: COMMON NORMALS: no acute distress, average body habitus, patient oriented x3, no limitations, healthy appearing, alert and well nourished GENERAL APPEARANCE: cooperative, comfortable, well kempt and well developed ORIENTATION/CONSCIOUSNESS: Yes awake, Yes oriented to person, Yes oriented to place and Yes oriented to time HENMT: COMMON NORMALS: normocephalic, external ears normal and Normal external nose present HEAD & SCALP: normal to inspection and normocephalic NOSE: Normal external nose present EXTERNAL EAR: Yes external ears normal MOUTH: Normal oral and palatal mucosa present THROAT: posterior oropharynx normal Eye: COMMON NORMALS: Equal, round and reactive pupils present and EOMs intact bilaterally GENERAL EYE: appearance normal, both eyes and all related structures PUPIL: Yes Equal, round and reactive pupils present Neck/C-Spine: COMMON NORMALS: full ROM, no lymphadenopathy, no meningeal signs and no JVD GENERAL: Yes normal visual inspection Lymph: LYMPHATIC: no lymphadenopathy noted Chest: COMMONS NORMALS: normal inspection of the chest and normal palpation of entire chest wall Resp: COMMON NORMALS: normal respiratory effort, No retractions, No use of accessory muscles, clear to auscultation bilaterally and percussion normal EFFORT & INSPECTION: Yes able to speak in complete sentences AUSCULTATION: clear to auscultation bilaterally PERCUSSION: percussion normal Cardio: COMMON NORMALS: no JVD, regular rate, regular rhythm, S1 normal heart sound present, S2 normal heart sound present and Peripheral pulses 2+ throughout RATE: regular rate RHYTHM: regular rhythm HEART SOUNDS: S1 normal heart sound present and S2 normal heart sound present PERIPHERAL PULSES: Peripheral pulses 2+ throughout GI: COMMON NORMALS: Normal to inspection, nondistended, normoactive bowel sounds present, Soft to palpation, non-tender and no masses INSPECTION: Yes normal to inspection PALPATION: Yes Soft to palpation : COMMON NORMALS: Yes no CVA tenderness BLADDER/KIDNEY EXAM: Yes no CVA tenderness Back/Pelvis: COMMON NORMALS: no CVA tenderness, thoracic and lumbar spine normal to inspection, no thoracic nor lumbar tenderness and thoraco-lumbar ROM normal Extremity: COMMON NORMALS: normal to inspection, full ROM, capillary refill normal, no joint enlargement and no pedal edema GENERAL: Yes normal exam except as noted Neuro: COMMON NORMALS: patient oriented x3, CN's II-XII intact bilaterally, moves all extremities, no focal motor deficits, no sensory deficits noted and gait normal SENSORIUM/ORIENTATION: Yes alert, Yes oriented to person, Yes oriented to place and Yes oriented to time MENINGEAL SIGNS: Yes no meningeal signs Psych: COMMON NORMALS: mental status grossly normal, Normal thought process present, cooperative, normal affect and speech normal APPEARANCE: Yes well kempt ATTITUDE: Yes calm SPEECH: Yes normal speech THOUGHT PROCESS: Normal thought process present THOUGHT CONTENT: Yes Suicidality present, No Homicidality present and No Hallucination(s) present INSIGHT: Poor insight present (Psych) JUDGEMENT: Poor judgement present (Psych) Skin: COMMON NORMALS: no rashes or lesions noted GENERAL SKIN EXAM: no rashes or lesions noted Course Vital Signs: Vital signs: Vital Signs Temperature 97.9 F 09/23/20 21:43 Pulse Rate 120 H 09/23/20 21:43 Respiratory Rate 18 09/23/20 21:43 Blood Pressure 132/82 09/23/20 21:43 Pulse Oximetry 97 09/23/20 21:43 MDM - Psych MDM Narrative: Medical decision making narrative: Discussed with Dr. Stevens this patient who comes in complaining of suicidal ideations. He recommended ad mitting him as an observation patient and having Dr. Castorena seeing him in the morning as he has had multiple recent admissions for suicidal thoughts. We will keep him observation. Lab Data: Labs: Lab Results 09/23/20 09/23/20 09/23/20 Range/Units 21:40 21:40 21:55 WBC 8.5 (4.0-10.0) 10^3/ uL RBC 5.03 (4.1-5.3) 10^6/u L Hgb 15.9 (11.7-16.6) g/dL Hct 45.9 (42.0-52.0) % MCV 91.3 (80-94) fL MCH 31.6 (28.0-34.0) pg MCHC 34.6 (30.0-36.0) g/dL RDW 12.7 (12.1-15.1) % Plt Count 221 (130-400) 10^3/c mm MPV 10.1 (7.4-10.4) fL Neut % (Auto) 52.9 % Lymph % (Auto) 38.9 % [place] % (Auto) 5.3 % Eos % (Auto) 1.9 % Baso % (Auto) 0.5 % Neut # (Auto) 4.53 (1.8-7.7) 10^3/u L Lymph # (Auto) 3.3 (0.8-4.8) 10^3/u L [place] # (Auto) 0.5 (0.2-0.9) 10^3/u L Eos # (Auto) 0.2 (0.0-0.8) 10^3/u L Baso # (Auto) 0.0 (0.0-0.1) 10^3/u L Nucleated RBC % (a uto) 0 % Nucleated RBCs # 0.0 /100WBC Sodium (136-145) mmol/L Potassium (3.5-5.1) mmol/L Chloride (98-107) mmol/L Carbon Dioxide (22-29) mmol/L Anion Gap (5-19) BUN (6-20) mg/dL Creatinine (0.7-1.2) mg/dL GFR Calculation (90-130) mL/min Glucose (65-115) mg/dL Calculated Osmolal ity (285-295) mOsm/k g Calcium (8.5-10.5) mg/dL Total Bilirubin (0.15-1.2) mg/dL AST (0-40) U/L ALT (0-41) U/L Alkaline Phosphata se (40-130) IU/L Total Protein (6.6-8.7) g/dL Albumin (3.5-5.2) g/dL Globulin (1.3-4.6) g/dL TSH (0.27-4.20) uIU/ mL Urine Color Yellow (Yellow) Urine Appearance Clear (CLEAR) Urine pH 7 (5-7) Ur Specific Gravit y 1.000 L (1.005-1.030) Urine Protein Neg (Negative) Urine Glucose (UA) Norm (Normal) Urine Ketones Negative (Negative) Urine Blood Neg (Negative) Urine Nitrate Negative (Negative) Urine Bilirubin Neg (Negative) Urine Urobilinogen Norm (Negative) mg/dL Ur Leukocyte Unique ase Negative (Negative) Salicylates (3-10) mg/dL Urine Opiates Scre en Negative (Negative) ng/mL Acetaminophen (10-30) ug/mL Ur Barbiturates Sc reen Negative (Negative) ng/mL Ur Phencyclidine S crn Negative (Negative) ng/mL Ur Amphetamines Sc reen Negative (Negative) ng/mL U Benzodiazepines Scrn Negative (Negative) ng/mL Urine Cocaine Scre en Negative (Negative) ng/mL U Marijuana (THC) Screen Negative (Negative) ng/mL Ethyl Alcohol (0-10) mg/dL 09/23/20 Range/Units 21:55 WBC (4.0-10.0) 10^3/ uL RBC (4.1-5.3) 10^6/u L Hgb (11.7-16.6) g/dL Hct (42.0-52.0) % MCV (80-94) fL MCH (28.0-34.0) pg MCHC (30.0-36.0) g/dL RDW (12.1-15.1) % Plt Count (130-400) 10^3/c mm MPV (7.4-10.4) fL Neut % (Auto) % Lymph % (Auto) % [place] % (Auto) % Eos % (Auto) % Baso % (Auto) % Neut # (Auto) (1.8-7.7) 10^3/u L Lymph # (Auto) (0.8-4.8) 10^3/u L [place] # (Auto) (0.2-0.9) 10^3/u L Eos # (Auto) (0.0-0.8) 10^3/u L Baso # (Auto) (0.0-0.1) 10^3/u L Nucleated RBC % (a uto) % Nucleated RBCs # /100WBC Sodium 136 (136-145) mmol/L Potassium 3.9 (3.5-5.1) mmol/L Chloride 101 (98-107) mmol/L Carbon Dioxide 22 (22-29) mmol/L Anion Gap 16.9 (5-19) BUN 16 (6-20) mg/dL Creatinine 0.6 L (0.7-1.2) mg/dL GFR Calculation 159.3 H (90-130) mL/min Glucose 93 (65-115) mg/dL Calculated Osmolal ity 283 L (285-295) mOsm/k g Calcium 8.9 (8.5-10.5) mg/dL Total Bilirubin 0.2 (0.15-1.2) mg/dL AST 16 (0-40) U/L ALT 23 (0-41) U/L Alkaline Phosphata se 36 L (40-130) IU/L Total Protein 7.7 (6.6-8.7) g/dL Albumin 5.0 (3.5-5.2) g/dL Globulin 2.7 (1.3-4.6) g/dL TSH 3.27 (0.27-4.20) uIU/ mL Urine Color (Yellow) Urine Appearance (CLEAR) Urine pH (5-7) Ur Specific Gravit y (1.005-1.030) Urine Protein (Negative) Urine Glucose (UA) (Normal) Urine Ketones (Negative) Urine Blood (Negative) Urine Nitrate (Negative) Urine Bilirubin (Negative) Urine Urobilinogen (Negative) mg/dL Ur Leukocyte Unique ase (Negative) Salicylates < 0.3 L (3-10) mg/dL Urine Opiates Scre en (Negative) ng/mL Acetaminophen < 5.0 L (10-30) ug/mL Ur Barbiturates Sc reen (Negative) ng/mL Ur Phencyclidine S crn (Negative) ng/mL Ur Amphetamines Sc reen (Negative) ng/mL U Benzodiazepines Scrn (Negative) ng/mL Urine Cocaine Scre en (Negative) ng/mL U Marijuana (THC) Screen (Negative) ng/mL Ethyl Alcohol < 10 (0-10) mg/dL Discharge Plan Discharge Patient Disposition: Placed in Observation Clinical Impression: Depressive disorder, Suicidal ideation Coding Level of Care Code ED Bra[employer]iner for Keny Ying
[2020-09-23 23:22] VITALS: BP 138/96; PULSE 117; RESP 17; TEMP 36.6; O2SAT 97
[2020-09-23 23:37] VITALS: BP 138/96; PULSE 117; RESP 17; TEMP 36.6; O2SAT 97
[2020-09-24] MEDS: nicotine 2 mg Gum BUCCAL ×5 (00:08→20:50)
[2020-09-24 00:31] LABS: Valproic Acid Level 44.7 ug/mL (50-100)
[2020-09-24 00:44] VITALS: BP 132/83; PULSE 110; RESP 16; TEMP 36.6; O2SAT 95
--- NOTE | 2020-09-24 05:05 | PC.NURSE ---
PM ASSESSMENT V/S ARE WNL, HEART/LUNG SOUNDS CLEAR, PT DENIES HI, STATES HE IS SI D/T HEARING VOICES THAT WILL NOT STOP AND HAVE BEEN GETTING WORSE THE LAST 2 WEEKS. NOW THE VOICES ARE TELLING HIM TO HARM HIMSELF. STATES HE HAS NO PLAN AND CONTRACTS FOR SAFETY.
[2020-09-24 06:00] VITALS: BP 129/76; PULSE 103; RESP 17; TEMP 37; O2SAT 96
[2020-09-24] MEDS: lisinopril 10 mg Tablet PO (07:11)
[2020-09-24] MEDS: quetiapine 100 mg Tablet 200 MG PO ×2 (07:11→11:25)
[2020-09-24] MEDS: levothyroxine 100 mcg Tablet PO (07:11)
[2020-09-24] MEDS: metoprolol succinate ER (24 HR) 25 mg Tablet PO (07:11)
[2020-09-24] MEDS: divalproex DR 500 mg Tablet PO ×2 (08:40→20:31)
--- NOTE | 2020-09-24 12:03 | P.HP_ITS ---
Providers/Chief Complaint Admitting Physician: Troy Stevens MD Primary Care Provider: Sp Flowers MD Chief Complaint: SI HPI NPU History of Present Illness Real Black is a 30 year old male with history of schizoaffective disorder presenting to the emergency department with report of worsening auditory hallucinations in the context of worsening depressive symptoms. Patient does present with similar complaints every couple of months although reports worsening depressive symptoms that the patient believes are temporally related to his auditory hallucinations telling him to harm himself although he states that he would never act on these perceptual disturbances. Continues to report low mood, decreased energy and interest. Reports intermi ttent passive suicidal thoughts but denies any active intent or plan. Denies any recent hypomanic or manic episodes. Patient denies use of any substances or alcohol. Patient denies any other external stressors that would exacerbate his symptoms and denies any mitigating factors. Patient reports being compliant with his medication and denies any medication side effects. Meds NPU Home Medications Medication Instructions Recorded Confirmed Last Taken Type levothyroxine 100 mcg PO DAILY@0700 30 Days #30 05/21/20 09/24/20 09/23/20 Rx tab metoprolol succinate 25 mg PO DAILY@0700 30 Days #30 tab 05/21/20 09/24/20 09/23/20 07:00 Rx acetaminophen 500 mg tablet 1,000 mg PO Q6H PRN 08/03/20 09/24/20 09/23/20 Hi story lisinopril 10 mg PO DAILY@07 08/03/20 09/24/20 09/23/20 07:00 History ibuprofen 800 mg PO Q8H PRN #20 tab 09/04/20 09/24/20 09/23/20 Rx divalproex 500 mg tablet,delayed 500 mg PO BID #60 tab 09/15/20 09/24/20 09/23/20 Rx release hydroxyzine pamoate 25 mg capsule 25 mg PO Q8H PRN 30 Days #90 cap 09/15/20 09/24/20 09/23/20 Rx mirtazapine 30 mg tablet 45 mg PO BEDTIME #45 tab 09/15/20 09/24/20 09/22/20 21:00 Rx quetiapine 200 mg tablet 200 mg PO BID@ #60 tab 09/15/20 09/24/20 09/23/20 12:00 Rx Risperdal 1 mg PO Q2H MDD 4 mg 09/24/20 09/24/20 09/22/20 12:00 History quetiapine 400 mg PO BEDTIME@20 09/24/20 09/24/20 09/22/20 21:00 History Allergies Allergy/AdvReac Type Severity Reaction Status Date / Time chlorpromazine Allergy Severe ALGY-Anaphy Verified 09/24/20 05:39 laxis haloperidol [From Haldol] Allergy Severe ALGY-Swell Verified 09/24/20 05:39 Lip/Tongue/Throat lurasidone [From Latuda] Allergy Severe ALGY-Swell Verified 09/24/20 05:39 Lip/Tongue/Throat olanzapine [From Zyprexa] Allergy Severe ALGY-Swell Verified 09/24/20 05:39 Lip/Tongue/Throat PFSH NPU PFSH: Medical History Depressive disorder Hallucination Schizoaffective disorder Schizoaffective disorder, depressive type Social History Smoking and tobacco status: current every day smoker cigarettes Packs smoked per day: 1 Years cigarettes smoked: 11 Quit status (tobacco): considering quitting Second hand smoke exposure: Yes Other Psychiatric History: Other Psychiatric History: Longstanding psychiatric history with multiple previous psychiatric admissions, followed by [facility] by a therapist and psychiatric nurse practitioner. Mental Status Exam MSE Comments: Sitting in the day room, somewhat disheveled, appropriately dressed in hospital scrubs, calm, cooperative, interactive, good eye contact Psychomotor activity is decreased, no agitation Speech is slow, normal volume, spontaneous, fair articulation, not pressured I feel depressed, congruent affect, not labile Alert and oriented to person, place, time, situation Memory and concentration appear to be fair to intact per interview Intellectual functioning appears to be below average to average at best based on vocabulary, interview Thought process, linear, no flight of ideas, no looseness of associations Thought content, no delusions, no hallucinations, no suicidal or homicidal ideation Insight and judgment appear to be fair Vitals/I&O/Wt Last Vital Signs Temp 98.6 F 09/24/20 06:00 Pulse 103 H 09/24/20 06:00 Resp 17 09/24/20 06:00 BP 129/76 09/24/20 06:00 Pulse Ox 96 09/24/20 06:00 Weight last 48 hrs Weight 99.79 kg Data NPU : 09/23/20 21:55 09/23/20 21:55 A&P Assessment and plan (1) Suicidal ideation: Status: Acute (2) Schizoaffective disorder, depressive type: Status: Chronic Additional A&P Information Worsening command auditory hallucinations with passive suicidal ideation, denies any interval acute stressors, reports being compliant with medication. VOLUNTARY ADMIT to inpatient psychiatry unit RESTART home medications START bupropion SR 100 mg daily for augmentation of antidepressant Encourage patient to participate in unit activities to include group sessions, unit milieu Involuntary Hold Information 96 Hour Hold: 96 Hour Involuntary Admission: No Attestations NPU Medical Necessity Statement*: Psychiatric hospitalization indicated for medication stabilization, coordination for safe discharge Anticipate hospital stay to exceed 2 midnights Time Spent in Patient Care: Greater than 35 minutes (>than 50% of time spent in counselling and/or direct pt care on unit) . Coding Level of Care Code Acute Groundskeeper for Keny Ying Diagnoses Suicidal ideation R45.851 Schizoaffective disorder, depressive type F25.1
[2020-09-24] MEDS: buPROPion SR (12 HR) 100 mg Tablet PO (12:12)
[2020-09-24 14:00] VITALS: BP 129/81; PULSE 107; RESP 16; TEMP 36.3; O2SAT 97
[2020-09-24] MEDS: risperiDONE 1 mg Tablet PO (15:13)
--- NOTE | 2020-09-24 15:18 | PC.NURSE ---
Addendum entered by Ang Rodney RN 09/24/20 16:00: PRN MED, MED EFFECTIVE, PT STATES VOICES ARE GONE, WILL CONTINUE TO MONITOR. Original Note: PRN MED PT GIVEN 1MG RISPERIDONE FOR VOICES,WILL CONTINUE TO MONITOR.
[2020-09-24 19:37] VITALS: BP 145/79; PULSE 109; RESP 18; TEMP 36.7; O2SAT 96
[2020-09-24] MEDS: quetiapine 100 mg Tablet 400 MG PO (20:31)
[2020-09-24] MEDS: mirtazapine 30 mg Tablet 45 MG PO (20:31)
[2020-09-25 06:00] VITALS: BP 128/84; PULSE 93; RESP 18; TEMP 36.9; O2SAT 96
[2020-09-25] MEDS: quetiapine 100 mg Tablet 200 MG PO ×2 (06:38→11:17)
[2020-09-25] MEDS: lisinopril 10 mg Tablet PO (06:38)
[2020-09-25] MEDS: levothyroxine 100 mcg Tablet PO (06:38)
[2020-09-25] MEDS: metoprolol succinate ER (24 HR) 25 mg Tablet PO (06:38)
[2020-09-25] MEDS: divalproex DR 500 mg Tablet PO ×2 (08:42→21:18)
[2020-09-25] MEDS: buPROPion SR (12 HR) 100 mg Tablet PO (08:42)
[2020-09-25] MEDS: nicotine 2 mg Gum BUCCAL ×6 (09:01→21:43)
--- NOTE | 2020-09-25 13:17 | PM.NPN ---
Subjective NPU Subjective: Interval history: Patient reports improvement in mood symptoms, states depressive symptoms are 4/10 Denies any interval suicidal ideation Reports significant improvement in psychotic symptoms, denies any interval auditory hallucinations, denies any visual hallucinations, denies any delusions Reports that his appetite is been doing well Reports improvement in sleep Reports tolerating medication changes well, denies any medication side effects Mental Status Exam MSE Comments: Sitting on his bed in his room, improved grooming, wearing hospital scrubs, polite, cooperative, interactive, good eye contact Psychomotor activity is neither increased nor decreased, no agitation Speech is normal rate, normal volume, spontaneous, fair articulation, not pressured I feel little better, congruent affect, not labile Alert and oriented to person, place, time, situation Memory and concentration appear to be fair to intact per interview Thought process, linear, no flight of ideas, no looseness of associations Thought content, no delusions, no hallucinations, no suicidal or homicidal ideation Insight and judgment appear to be fair Vitals/I&O/Wt Last Vital Signs Temp 98.4 F 09/25/20 06:00 Pulse 93 09/25/20 06:00 Resp 18 09/25/20 06:00 BP 128/84 09/25/20 06:00 Pulse Ox 96 09/25/20 06:00 Weight last 48 hrs Weight 99.79 kg Data NPU : 09/23/20 21:55 09/23/20 21:55 A&P Assessment and plan (1) Suicidal ideation: Status: Acute (2) Schizoaffective disorder, depressive type: Status: Chronic Additional A&P Information Patient continues to report depressive symptoms but reports improvement in motivation, interest after augmentation with bupropion with no reported medication side effects. CONTINUE current medication, continue to monitor Involuntary Hold Information 96 Hour Hold: 96 Hour Involuntary Admission: No Attestations NPU Medical Necessity Statement*: Continues to require psychiatric hospitalization for medication stabilization, coordination for safe discharge Coding Level of Care Code Acute Correctional Therapy Teacher for Keny Ying Diagnoses Suicidal ideation R45.851 Schizoaffective disorder, depressive type F25.1
[2020-09-25 14:00] VITALS: BP 126/79; PULSE 106; RESP 20; TEMP 36.8; O2SAT 96
--- NOTE | 2020-09-25 15:07 | PC.RESP ---
Smoking Cessation information sent to patient.
[2020-09-25] MEDS: mirtazapine 30 mg Tablet 45 MG PO (21:18)
[2020-09-25] MEDS: quetiapine 100 mg Tablet 400 MG PO (21:19)
[2020-09-25 22:00] VITALS: BP 137/90; PULSE 105; RESP 18; TEMP 37; O2SAT 95
[2020-09-25] MEDS: hyDROXYzine 25 mg Capsule 50 MG PO (22:45)
--- NOTE | 2020-09-25 22:46 | PC.NURSE ---
Addendum entered by Paulina Strong RN 09/25/20 23:47: Pt states visteril is not effective, voices are louder, pt tearful, states, Im not ready to go home. Original Note: Visteril 50mg PO given for anxiety, pt states he has AH-and is SI, contracted for safety, pacing, holding his head, states the voices are loud and bothersome.
[2020-09-25] MEDS: trazodone 50 mg Tablet PO (23:45)
[2020-09-25] MEDS: risperiDONE 1 mg Tablet PO (23:45)
--- NOTE | 2020-09-25 23:48 | PC.NURSE ---
Addendum entered by Paulina Strong RN 09/26/20 01:33: Trazodone not effective, pt wondering navas. Risperdal voices are decreased, more paranoia noted, repeating dose. Original Note: PRNS Trazodone 50mg PO /Risperdal 1mg PO given for increased psychosis, AH are worsening, became louder, pt very anxious at this time. Pt is pacing, given 50mg PO Trazodone to help patient rest.
[2020-09-26] MEDS: nicotine 2 mg Gum BUCCAL ×7 (00:52→20:19)
[2020-09-26] MEDS: risperiDONE 1 mg Tablet PO (01:36)
--- NOTE | 2020-09-26 01:38 | PC.NURSE ---
2nd Risperdal 1mg PO given, AH- commanding pt to hurt himself, to kill himself. Pt went to 170 sat in the corner by the door,tearful, and apologizing for Being a bother. Pt feels no one understands him, states, I am not ready to go home, I will hurt myself, I know iI will. Pt states, Someone is watching me, they are talking to me.
[2020-09-26 06:00] VITALS: BP 137/79; PULSE 104; RESP 17; TEMP 36.5; O2SAT 95
[2020-09-26] MEDS: levothyroxine 100 mcg Tablet PO (06:53)
[2020-09-26] MEDS: lisinopril 10 mg Tablet PO (06:54)
[2020-09-26] MEDS: metoprolol succinate ER (24 HR) 25 mg Tablet PO (06:54)
[2020-09-26] MEDS: quetiapine 100 mg Tablet 200 MG PO ×2 (06:54→12:41)
[2020-09-26] MEDS: divalproex DR 500 mg Tablet PO ×2 (10:08→20:19)
[2020-09-26] MEDS: buPROPion SR (12 HR) 100 mg Tablet PO (10:08)
--- NOTE | 2020-09-26 10:46 | PM.NPN ---
Subjective NPU Subjective: Interval history: Patient reports interval auditory hallucinations telling him to hurt himself but he states that he had no intent or plan of harming himself, states he was given Risperdal 1 mg early this morning which resolved the symptoms Reports intermittent depressive symptoms, denies any suicidal ideation Reports that his appetite is been good Reports that his sleep was fair overnight Mental Status Exam MSE Comments: Calm, cooperative, appropriately groomed and dressed, interactive, good eye contact Psychomotor activity is neither increased nor decreased, no agitation Speech is normal rate, normal volume, spontaneous, fair articulation, not pressured I feel a little better, congruent affect, not labile Alert and oriented to person, place, time, situation Memory and concentration appear to be fair to intact per interview Thought process, linear, no flight of ideas, no looseness of associations Thought content, no delusions, no hallucinations, no suicidal or homicidal ideation Insight and judgment appear to be fair Vitals/I&O/Wt Last Vital Signs Temp 97.7 F 09/26/20 06:00 Pulse 104 H 09/26/20 06:00 Resp 17 09/26/20 06:00 BP 137/79 09/26/20 06:00 Pulse Ox 95 09/26/20 06:00 09/25/20 09/26/20 09/26/20 22:59 06:59 14:59 Intake Total 740 / 740 Balance 740 / 740 Data NPU : 09/23/20 21:55 09/23/20 21:55 A&P Assessment and plan (1) Suicidal ideation: Status: Acute (2) Schizoaffective disorder, depressive type: Status: Chronic Additional A&P Information Reports interval auditory hallucination with use of as needed medication with resolution, intermittent depressive symptoms but reports improving CONTINUE current medication, continue to monitor Involuntary Hold Information 96 Hour Hold: 96 Hour Involuntary Admission: No Attestations NPU Medical Necessity Statement*: Continues to require psychiatric hospitalization for medication stabilization, coordination for safe discharge Coding Level of Care Code Acute Signals Intelligence Analysis Manager for Keny Fweric Diagnoses Suicidal ideation R45.851 Schizoaffective disorder, depressive type F25.1
[2020-09-26 14:00] VITALS: BP 137/79; PULSE 104; RESP 17; TEMP 36.5; O2SAT 95
[2020-09-26] MEDS: hyDROXYzine 25 mg Capsule 50 MG PO ×2 (17:39→22:10)
[2020-09-26 18:54] VITALS: BP 127/84; PULSE 108; RESP 18; TEMP 36.8; O2SAT 94
[2020-09-26] MEDS: quetiapine 100 mg Tablet 400 MG PO (20:19)
[2020-09-26] MEDS: mirtazapine 30 mg Tablet 45 MG PO (20:19)
[2020-09-26 21:23] VITALS: BP 118/84; PULSE 106; RESP 18; TEMP 36.8; O2SAT 96
[2020-09-26] MEDS: trazodone 50 mg Tablet PO (22:10)
--- NOTE | 2020-09-27 00:05 | PC.NURSE ---
PRN 2210 Administered Trazadone 50mg for a sleeping aid, Also Vistaril 50 mg for anxiety. will follow up with pt in 30 min. 2241 pt is calm and laying down resting in bed not yet fully asleep, will continue to monitor pt until end of shift.
[2020-09-27 06:00] VITALS: BP 113/79; PULSE 95; RESP 18; TEMP 36.5; O2SAT 95
[2020-09-27] MEDS: levothyroxine 100 mcg Tablet PO (06:16)
[2020-09-27] MEDS: quetiapine 100 mg Tablet 200 MG PO ×2 (06:16→11:43)
[2020-09-27] MEDS: metoprolol succinate ER (24 HR) 25 mg Tablet PO (06:16)
[2020-09-27] MEDS: lisinopril 10 mg Tablet PO (06:17)
[2020-09-27] MEDS: nicotine 2 mg Gum BUCCAL ×7 (06:17→21:49)
[2020-09-27] MEDS: buPROPion SR (12 HR) 100 mg Tablet PO (08:28)
[2020-09-27] MEDS: divalproex DR 500 mg Tablet PO ×2 (08:28→19:25)
--- NOTE | 2020-09-27 09:59 | P.PN_ITS ---
Subjective NPU Subjective: Interval history: Reports no interval auditory or visual destinations, denies any interval depressive symptoms Denies any interval suicidal ideation Continues to report good appetite, improved sleep Reports tolerating medication changes well, denies any medication side effects Mental Status Exam MSE Comments: Sitting on bench next to nurses station, appropriately groomed a nd dressed, calm, cooperative, good eye contact Psychomotor activity is neither increased nor decreased, no agitation Speech is normal rate, normal volume, spontaneous, fair articulation, not pressured I feel good, congruent affect, not labile Alert and oriented to person, place, time, situation Memory and concentration appear to be fair to intact per interview Thought process, linear, no flight of ideas, no looseness of associations Thought content, no delusions, no hallucinations, no suicidal or homicidal ideation Insight and judgment appear to be fair Vitals/I&O/Wt Last Vital Signs Temp 97.7 F 09/27/20 06:00 Pulse 95 09/27/20 06:00 Resp 18 09/27/20 06:00 BP 113/79 09/27/20 06:00 Pulse Ox 95 09/27/20 06:00 Data NPU : 09/23/20 21:55 09/23/20 21:55 A&P Assessment and plan (1) Suicidal ideation: Status: Acute (2) Schizoaffective disorder, depressive type: Status: Chronic Additional A&P Information Reports improved depressive symptoms, no reported medication side effects. CONTINUE current medication, continue to monitor Involuntary Hold Information 2 96 Hour Hold: 96 Hour Involuntary Admission: No Attestations NPU Medical Necessity Statement*: Continues to require psychiatric hospitalization for medication stabilization, coordination for safe discharge Coding Level of Care Code Acute Collision Worker for Keny Ying Diagnoses Suicidal ideation R45.851 Schizoaffective disorder, depressive type F25.1
[2020-09-27 14:00] VITALS: BP 107/65; PULSE 56; RESP 17; TEMP 36.6; O2SAT 93
[2020-09-27] MEDS: mirtazapine 30 mg Tablet 45 MG PO (19:08)
[2020-09-27] MEDS: hyDROXYzine 25 mg Capsule 50 MG PO (19:10)
[2020-09-27] MEDS: quetiapine 100 mg Tablet 400 MG PO (19:25)
[2020-09-27 20:01] VITALS: BP 112/80; PULSE 98; RESP 17; TEMP 37.2; O2SAT 97
[2020-09-27] MEDS: trazodone 50 mg Tablet PO (20:11)
[2020-09-27] MEDS: risperiDONE 1 mg Tablet PO (20:45)
--- NOTE | 2020-09-27 20:49 | PC.NURSE ---
At 1909, pt was given Hydroxyzine 50mg po, Trazodone 50mg po and nicorette gum 2mg per his request for sleep and anxiety, along with his HS meds. At 2004, pt stated he was continuing to feel increased anxiety about his possible discharge tomorrow (09/28). Pt then requested his PRN Risperdal by name. Risperdal 1mg po given.
[2020-09-28] MEDS: nicotine 2 mg Gum BUCCAL ×4 (03:33→10:03)
[2020-09-28 06:00] VITALS: BP 129/87; PULSE 98; RESP 20; TEMP 36.3; O2SAT 97
[2020-09-28] MEDS: lisinopril 10 mg Tablet PO (06:21)
[2020-09-28] MEDS: quetiapine 100 mg Tablet 200 MG PO (06:21)
[2020-09-28] MEDS: levothyroxine 100 mcg Tablet PO (06:21)
[2020-09-28] MEDS: metoprolol succinate ER (24 HR) 25 mg Tablet PO (06:21)
[2020-09-28] MEDS: divalproex DR 500 mg Tablet PO (07:50)
[2020-09-28] MEDS: buPROPion SR (12 HR) 100 mg Tablet PO (07:50)
[2020-09-28 09:03] VITALS: BP 129/87; PULSE 98; RESP 20; TEMP 36.3; O2SAT 97
--- NOTE | 2020-09-28 10:10 | P.DS_ITS ---
Diagnoses at Discharge Discharge Diagnosis (1) Suicidal ideation: Status: Acute (2) Schizoaffective disorder, depressive type: Status: Chronic Reason for Visit Reason for Visit: SI Hospital Course Hospital Course 30 year old male with history of schizoaffective disorder presenting to the emergency department with report of worsening auditory hallucinations in the context of worsening depressive symptoms. Patient does present with similar complaints every couple of months although reports worsening depressive symptoms that the patient believes are temporally related to his auditory hallucinations telling him to harm himself although he states that he would never act on these perceptual disturbances. Patient initially reported persisting depressive symptoms and was started on a low-dose of bupropion SR 100 mg daily which the patient reported relief of his depressive symptoms. Patient had some intermittent auditory hallucinations which subsequently subsided and was symptom free for a couple of days prior to discharge. Patient participated in unit activities to include unit milieu with no reports of any behavioral disturbances. Patient tolerated medication changes well with no reports of any medication side effects. Patient was not suicidal and did not endorse any depressive or psychotic symptoms at the time of discharge and did not appear to pose an imminent threat of harm to self or others. Low to moderate risk of harm to self given no current suicidal ideation and no endorsement of any psychiatric symptoms to include no depressive or psychotic symptoms although patient's risk may be elevated if he is not compliant with this medication or medication management follow-up leading to unexpected, impulsive behavior. Risk mitigation included psychiatric hospitalization, medication stabilization, recommendation to continue compliance with medication and medication management follow-up. Patient communicated his understanding of the need to be compliant with his medication and medication management follow-up in order to further mitigate his risk of harm to self and others. Involuntary Hold Information 96 Hour Hold: 96 Hour Involuntary Admission: No Mental Status Exam MSE Comments: Standing in the hallway on the unit near the nurses station, polite, interactive, appropriately groomed and dressed, good eye contact Psychomotor activity is neither increased nor decreased, no agitation Speech is normal rate, normal volume, spontaneous, fair articulation, not pressured Good, congruent affect, smiles at times during interview, appropriately, not labile Alert and oriented to person, place, time, situation Memory and concentration appear to be fair to intact per interview Thought process, linear, no flight of ideas, no looseness of associations Thought content, no delusions, no hallucinations, no suicidal or homicidal ideation Insight and judgment appear to be fair Discharge Data Vitals: Last Vital Signs Temp 97.4 F L 09/28/20 09:03 Pulse 98 09/28/20 09:03 Resp 20 H 09/28/20 09:03 BP 129/87 09/28/20 09:03 Pulse Ox 97 09/28/20 09:03 Discharge Plan Discharge Patient Disposition: Home Condition: Stable Prescriptions: New bupropion HCl 100 mg Tablet Sustained-Release 12 Hr 100 mg PO DAILY Qty: 30 RF: 0 Continued Depakote 500 mg tablet,delayed release (DR/EC) 500 mg PO BID Qty: 60 RF: 2 hydroxyzine pamoate 25 mg capsule 25 mg PO Q8H PRN (Reason: Anxiety) 30 Days Qty: 90 RF: 2 mirtazapine 30 mg tablet 45 mg PO BEDTIME Qty: 45 RF: 2 quetiapine 200 mg tablet 200 mg PO BID@07,12 Qty: 60 RF: 2 acetaminophen [Tylenol Extra Strength] 500 mg tablet 1,000 mg PO Q6H PRN (Reason: Pain) RF: 0 levothyroxine 100 mcg Tablet 100 mcg PO DAILY@0700 30 Days Qty: 30 RF: 1 metoprolol succinate 25 mg Tablet Extended Release 24 Hr 25 mg PO DAILY@0700 30 Days Qty: 30 RF: 1 lisinopril 10 mg Tablet 10 mg PO DAILY@07 RF: 0 ibuprofen 800 mg tablet 800 mg PO Q8H PRN (Reason: pain) Qty: 20 RF: 0 Risperdal 1 mg tablet 1 mg PO Q2H MDD 4 mg RF: 0 quetiapine 400 mg tablet 400 mg PO BEDTIME@20 RF: 0 Discharge Orders: Discharge Order (Routine); Ordered 09/28/20 Ordered By: Abdi Castorena Referrals: Patria Mckinney APRN [Nurse Practitioner] - 10/08/20 10:45 am (Therapy appointment with Mary Baires is on 09/28/20 @ 12:45pm.) Sp Flowers MD [Primary Care Provider] - Discharge Diet: Regular Discharge Activity: Resume usual activity Patient Instructions: Bupropion (By mouth), Anxiety (DC), Opioid Safety Discharge Attestations NPU Time Spent in Discharge Care*: greater than 30 min Status at Discharge: Cognitive status at discharge: cognitively intact , Behavioral status at discharge: cooperative , Functional status at discharge: independent ambulation Overall status at discharge: patient is back to baseline Coding Level of Care Code Acute Chg FW DC note Diagnoses Suicidal ideation R45.851 Schizoaffective disorder, depressive type F25.1
== END 2020-09-28 10:21 | disposition home or self-care (01) | DRG 885 ==
LOC: ER 23:05 → NP 23:15
PROVIDERS: Admitting Provider Psychiatry & Neurology Psychiatry; Emergency Provider Family Medicine; PCP Family Medicine; Visit Provider Psychiatry & Neurology Psychiatry
DX: F25.1 Schizoaffective disorder, depressive type (principal); R45.851 Suicidal ideations; F17.210 Nicotine dependence, cigarettes, uncomplicated
CPT/HCPCS: 80053; 80164; 80306; 80307; 81003; 84443; 85025; 99285; G0378

== ENCOUNTER 2020-10-01 20:26 | Emergency (ER) | payer MEDICARE, MEDICAID, SELFPAY ==
[2020-10-01 20:44] VITALS: BP 126/78; PULSE 106; RESP 16; TEMP 36.4; O2SAT 97; BMI 32.5
--- NOTE | 2020-10-01 20:55 | XRR_ITS ---
PROCEDURE INFORMATION: Exam: XR Left Shoulder Exam date and time: 10/01/2020 8:55 PM Age: 30 years old Clinical indication: Patient HX: Woke up with left shoulder pain x today TECHNIQUE: Imaging protocol: XR Left shoulder. Views: 2 or more views. COMPARISON: No relevant prior studies available. FINDINGS: Bones/joints: Normal. Soft tissues: Normal. XR/XR shoulder LT min 2V* [id number] IMPRESSION: Negative for fracture or dislocation
--- NOTE | 2020-10-01 20:59 | ED_ITS ---
HPI - Extremity Problem General: Chief complaint: Extremity Problem,Nontraumatic Stated complaint: shoulder pain Time Seen by Provider: 10/01/20 20:54 Source: patient Mode of arrival: ambulatory Limitations: no limitations History of Present Illness: HPI Narrative: 30-year-old male states been having left shoulder pain over the last month. He states that he has been told that it is tendinitis. He states that his pain is been persistent and is worse with movement improved with rest. States it is sharp in nature and rates it a 4 out of 10. Denies any recent injuries. Denies any numbness in his lower extremities. Associated symptoms: Deny chest pain, fever(s) or rash Review of Systems Const: Denies: fever(s), chills, body aches or change in appetite Eyes: Denies: blurry vision or eye discomfort ENMT: Denies: throat pain or dental pain Card: Denies: chest pain Resp: Denies: dyspnea GI: Denies: abdominal pain, nausea, vomiting or diarrhea : Denies: dysuria Musc: Reports: joint pain Skin/Breast: Denies: rash Neuro: Denies: headache(s) Psych: Denies: depression Jameson/Lymph: Denies: easy bruising All/Imm: Denies: urticaria PFSH ED PFSH: Medical History Depressive disorder Hallucination Schizoaffective disorder Schizoaffective disorder, depressive type Social History Smoking and tobacco status: current every day smoker cigarettes Packs smoked per day: 1 Years cigarettes smoked: 11 Quit status (tobacco): considering quitting Second hand smoke exposure: Yes Physical Exam Const: COMMON NORMALS: no acute distress, patient oriented x3 and healthy appearing HENMT: COMMON NORMALS: normocephalic and atraumatic HEAD & SCALP: normocephalic and atraumatic Eye: COMMON NORMALS: Equal, round and reactive pupils present and EOMs intact bilaterally PUPIL: Yes Equal, round and reactive pupils present Neck/C-Spine: COMMON NORMALS: full ROM and supple Chest: COMMONS NORMALS: normal inspection of the chest and normal palpation of entire chest wall Resp: COMMON NORMALS: normal respiratory effort, No retractions, No use of accessory muscles and clear to auscultation bilaterally AUSCULTATION: clear to auscultation bilaterally Cardio: COMMON NORMALS: regular rate, regular rhythm and No murmurs present (Cardio) RATE: regular rate RHYTHM: regular rhythm GI: COMMON NORMALS: Normal to inspection, nondistended, normoactive bowel sounds present, Soft to palpation, non-tender and no masses PALPATION: Yes Soft to palpation Extremity: COMMON NORMALS: normal to inspection and full ROM NARRATIVE EXTREMITY EXAM: Tenderness over left shoulder with no obvious deformity full range of motion. Neuro: COMMON NORMALS: patient oriented x3, moves all extremities and no focal motor deficits Psych: COMMON NORMALS: mental status grossly normal, Normal thought process present and cooperative THOUGHT PROCESS: Normal thought process present Skin: COMMON NORMALS: no rashes or lesions noted and no wounds GENERAL SKIN EXAM: no rashes or lesions noted Course Vital Signs: Vital signs: Vital Signs Temperature 97.6 F 10/01/20 20:44 Pulse Rate 106 H 10/01/20 20:44 Respiratory Rate 16 10/01/20 20:44 Blood Pressure 126/78 10/01/20 20:44 Pulse Oximetry 97 10/01/20 20:44 MDM - Extremity (Nontraumatic) MDM Narrative: Medical decision making narrative: Patient presents here with shoulder pain that is chronic in nature. Is likely a strain or tendinitis. X- ray is normal. We will place him on Naprosyn he is to follow-up his PCP and he is to return if worsening. Imaging Data^: X-ray left shoulder: Attestation: I personally reviewed and interpreted this imaging study as follows: Radiologist's impression: No acute abnormality Discharge Plan Discharge Patient Disposition: Home Clinical Impression: Left shoulder pain Qualifiers: Chronicity: acute Qualified Code(s): M25.512 - Pain in left shoulder Condition: Stable Prescriptions: New Naprosyn 500 mg tablet 500 mg PO BID PRN (Reason: pain) Qty: 20 RF: 0 No Action Depakote 500 mg tablet,delayed release (DR/EC) 500 mg PO BID Qty: 60 RF: 2 hydroxyzine pamoate 25 mg capsule 25 mg PO Q8H PRN (Reason: Anxiety) 30 Days Qty: 90 RF: 2 mirtazapine 30 mg tablet 45 mg PO BEDTIME Qty: 45 RF: 2 quetiapine 200 mg tablet 200 mg PO BID@07,12 Qty: 60 RF: 2 acetaminophen [Tylenol Extra Strength] 500 mg tablet 1,000 mg PO Q6H PRN (Reason: Pain) RF: 0 levothyroxine 100 mcg Tablet 100 mcg PO DAILY@0700 30 Days Qty: 30 RF: 1 metoprolol succinate 25 mg Tablet Extended Release 24 Hr 25 mg PO DAILY@0700 30 Days Qty: 30 RF: 1 lisinopril 10 mg Tablet 10 mg PO DAILY@07 RF: 0 ibuprofen 800 mg tablet 800 mg PO Q8H PRN (Reason: pain) Qty: 20 RF: 0 Risperdal 1 mg tablet 1 mg PO Q2H MDD 4 mg RF: 0 quetiapine 400 mg tablet 400 mg PO BEDTIME@20 RF: 0 bupropion HCl 100 mg Tablet Sustained-Release 12 Hr 100 mg PO DAILY Qty: 30 RF: 0 Discharge Orders: Discharge ED (Routine); Ordered 10/01/20 Ordered By: Jessica Rai Referrals: Sp Flowers MD [Primary Care Provider] - 1-3 days Discharge Diet: Advance as tolerated Discharge Activity: Resume usual activity Patient Instructions: Arthralgia (ED) Coding Level of Care Code ED Land Acquisition Specialist for Chg Fwd Exam Comprehensive
--- NOTE | 2020-10-01 21:02 | PC.NURSE ---
patient reports having pain to left shoulder that started gradually about a month ago and the pain was intermittent. he denies injury or illness. he states that the pain became constant about 2 weeks ago and progressively worse. current pain level is 8
[2020-10-01] MEDS: naproxen 500 mg Tablet PO (21:05)
[2020-10-01 21:36] VITALS: BP 145/95; PULSE 99; RESP 16; O2SAT 95
== END 2020-10-01 21:35 | disposition home or self-care (01) ==
PROVIDERS: Emergency Provider Emergency Medicine; PCP Family Medicine
DX: M25.512 Pain in left shoulder (principal); F17.210 Nicotine dependence, cigarettes, uncomplicated
CPT/HCPCS: 73030; 99282

== ENCOUNTER → 2020-10-08 08:20 | Outpatient (BNVA) | payer MEDICARE, MEDICAID, SELFPAY | PROVIDERS: PCP Family Medicine; Visit Provider Nurse Practitioner Psychiatric/Mental Health | DX: F25.1 Schizoaffective disorder, depressive type (principal) | CPT/HCPCS: 99213 ==

== ENCOUNTER 2020-10-19 20:00 | Outpatient (CLI) | payer MEDICARE, MEDICAID, SELFPAY | END 2020-10-19 20:01 | disposition home or self-care (01) | LOC: SLEEP 10-20 09:47 | PROVIDERS: PCP Family Medicine; Visit Provider Family Medicine | DX: G47.10 Hypersomnia, unspecified (principal); R06.83 Snoring; R53.83 Other fatigue; G47.33 Obstructive sleep apnea (adult) (pediatric) | CPT/HCPCS: 95810 ==

== ENCOUNTER 2020-11-04 21:17 | Inpatient (IN) | payer MEDICARE, MEDICAID, SELFPAY ==
[2020-11-04 21:29] VITALS: BP 166/94; PULSE 120; RESP 20; TEMP 37.2; O2SAT 94; BMI 29.5
--- NOTE | 2020-11-04 21:35 | ECG_ITS ---
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 Measurements Intervals Weed Rate: 104 P: 32 AK: 148 QRS: 52 QRSD: 91 T: 43 QT: 335 QTc: 441 Interpretive Statements SINUS TACHYCARDIA NONSPECIFIC T-WAVE ABNORMAl Compared to ECG 02/03/2016 04:37:10 T-wave abnormality now present Sinus rhythm no longer present Early repolarization no longer present Electronically Signed On 11-05-2020 23:43:32 CDT by Angel Juares M.D. [id number] f
--- NOTE | 2020-11-04 21:36 | ED_ITS ---
HPI - Psych General: Chief Complaint: Psychiatric Symptoms Stated Complaint: SI Time Seen by Provider: 11/04/20 21:31 History of Present Illness: HPI Narrative: This patient is a 30-year-old male who presents to the emergency department with complaint of hearing voices and suicidal ideation. Patient states the voices in his head is getting louder and continually telling to harm himself. Patient does have a history of suicidal ideation and attempt in the past and has been admitted for the same. Patient states he has a long history of hearing voices but seem getting worse now. Patient does have a history of schizoaffective disorder with panic swings. Will do medical evaluation treat as needed. Patient is requesting to be admitted because he is concerned that he will not be able to hold visits. Duration: constant, changing over time and getting worse History of same: Yes Relieving factors: none Exacerbating factors: none Associated symptoms: Reports auditory hallucinations and suicidal ideation; Deny depression Review of Systems General: Reports: 10 or more systems reviewed and unremarkable except in HPI and below Const: Denies: fever(s), chills, body aches or fatigue Eyes: Denies: change in vision or blurry vision ENMT: Denies: throat pain, hoarseness or mouth pain Card: Denies: chest pain, palpitations, irregular heart rhythm, edema, swelling of feet/ankles or lightheadedness Resp: Denies: dyspnea, productive cough, non-productive cough, wheezing or pain on inspiration GI: Denies: abdominal pain, nausea or vomiting : Denies: flank pain, dysuria, urinary frequency, urinary urgency or urinary hesitancy Musc: Denies: neck pain, back pain, extremity pain, extremity swelling, joint pain, joint swelling, joint redness, joint warmth or limited range of motion Skin/Breast: Denies: rash, pruritus, erythema or skin tenderness Neuro: Denies: headache(s), numbness in extremities or weakness in extremities Psych: Reports: mood swings, auditory hallucinations and suicidal ideation; Denies: anxiety or depression PFSH ED PFSH: Medical History Depressive disorder Hallucination Schizoaffective disorder Schizoaffective disorder, depressive type Social History Smoking and tobacco status: current every day smoker cigarettes Packs smoked per day: 1 Years cigarettes smoked: 11 Quit status (tobacco): not considering quitting Second hand smoke exposure: Yes Physical Exam Const: COMMON NORMALS: no acute distress, average body habitus, patient oriented x3, no limitations, healthy appearing, alert and well nourished HENMT: COMMON NORMALS: normocephalic, atraumatic, hearing grossly normal bilaterally, external ears normal, EAC's normal, TM's normal bilaterally, Normal external nose present, Normal nasal mucous membranes and turbinates present, moist oral mucous membranes, oropharynx normal, dentition normal and gingiva normal HEAD & SCALP: normocephalic and atraumatic NOSE: Normal external nose present and Normal nasal mucous membranes and turbinates present EXTERNAL EAR: Yes external ears normal EXTERNAL AUDITORY CANAL: EAC's normal TYMPANIC MEMBRANE: TM's normal bilaterally Neck/C-Spine: COMMON NORMALS: full ROM, no lymphadenopathy, supple, no meningeal signs, no JVD, Thyroid normal and No carotid bruits THYROID: Thyroid normal Chest: COMMONS NORMALS: normal inspection of the chest, normal palpation of entire chest wall, normal inspection of the breasts and normal palpation of the breasts Breast/axilla inspection: Yes normal inspection of the breasts BREAST/AXILLA PALPATION: Yes normal palpation of the breasts Resp: COMMON NORMALS: normal respiratory effort, No retractions, No use of accessory muscles, clear to auscultation bilaterally and percussion normal AUSCULTATION: clear to auscultation bilaterally PERCUSSION: percussion normal Cardio: COMMON NORMALS: no JVD, regular rate, regular rhythm, S1 normal heart sound present, S2 normal heart sound present, No gallops present (Cardio), No clicks present (Cardio), No murmurs present (Cardio), No rub (Cardio) and Peripheral pulses 2+ throughout RATE: regular rate RHYTHM: regular rhythm HEART SOUNDS: S1 normal heart sound present and S2 normal heart sound present PERIPHERAL PULSES: Peripheral pulses 2+ throughout GI: COMMON NORMALS: Normal to inspection, nondistended, normoactive bowel sounds present, Soft to palpation, non-tender, No hepatosplenomegaly present, no masses and no bruits PALPATION: Yes Soft to palpation and Yes No hepatosplenomegaly present : COMMON NORMALS: Yes no CVA tenderness BLADDER/KIDNEY EXAM: Yes no CVA tenderness Back/Pelvis: COMMON NORMALS: no CVA tenderness, thoracic and lumbar spine normal to inspection, no thoracic nor lumbar tenderness, thoraco-lumbar ROM normal and straight leg raise negative bilaterally Extremity: COMMON NORMALS: normal to inspection, full ROM, capillary refill normal, no joint enlargement, no clubbing, cyanosis or edema, no calf tenderness and no pedal edema Neuro: COMMON NORMALS: patient oriented x3 SENSORIUM/ORIENTATION: Yes alert MENINGEAL SIGNS: Yes no meningeal signs Psych: COMMON NORMALS: cooperative APPEARANCE: Yes unkempt ATTITUDE: Yes calm THOUGHT CONTENT: Yes Suicidality present and Yes Hallucination(s) present auditory Course Consultations: Consultation #1: I did discuss at length with Dr. Castorena psychiatry. He is agreed to accept this patient for admission to the psychological unit. For further evaluation and treatment Time: 22:19 Vital Signs: Vital signs: Vital Signs Temperature 98.9 F 11/04/20 21:29 Pulse Rate 120 H 11/04/20 21:29 Respiratory Rate 20 H 11/04/20 21:29 Blood Pressure 166/94 11/04/20 21:29 Pulse Oximetry 94 11/04/20 21:29 MDM - Psych MDM Narrative: Medical decision making narrative: This patient is a 30-year-old male who presents to the emergency department with complaint of hearing voices and suicidal ideation. Patient states the voices in his head is getting louder and continually telling to harm himself. Patient does have a history of suicidal ideation and attempt in the past and has been admitted for the same. Patient states he has a long history of hearing voices but seem getting worse now. Patient does have a history of schizoaffective disorder with panic swings. Will do medical evaluation treat as needed. Patient is requesting to be admitted because he is concerned that he will not be able to hold visits. I did discuss at length with Dr. Kell nicole. He is agreed to accept this patient for admission to the psychological unit. For further evaluation and treatment Medical Records: Attestation: I reviewed the patient's medical records. Lab Data: Attestation: I reviewed the patient's lab results. Labs: Lab Results 11/04/20 11/04/20 11/04/20 Range/Units 21:30 21:30 22:00 WBC 6.9 (4.0-10.0) 10^3/ uL RBC 4.91 (4.1-5.3) 10^6/u L Hgb 15.4 (11.7-16.6) g/dL Hct 45.4 (42.0-52.0) % MCV 92.5 (80-94) fL MCH 31.4 (28.0-34.0) pg MCHC 33.9 (30.0-36.0) g/dL RDW 12.5 (12.1-15.1) % Plt Count 215 (130-400) 10^3/c mm MPV 9.7 (7.4-10.4) fL Neut % (Auto) 47.2 % Lymph % (Auto) 37.7 % [place] % (Auto) 7.6 % Eos % (Auto) 6.3 % Baso % (Auto) 0.6 % Neut # (Auto) 3.25 (1.8-7.7) 10^3/u L Lymph # (Auto) 2.6 (0.8-4.8) 10^3/u L [place] # (Auto) 0.5 (0.2-0.9) 10^3/u L Eos # (Auto) 0.4 (0.0-0.8) 10^3/u L Baso # (Auto) 0.0 (0.0-0.1) 10^3/u L Nucleated RBC % (a uto) 0 % Nucleated RBCs # 0.0 /100WBC Urine Color Colorless (Yellow) Urine Appearance Clear (CLEAR) Urine pH 6.5 (5-7) Ur Specific Gravit y 1.005 (1.005-1.030) Urine Protein Neg (Negative) Urine Glucose (UA) Norm (Normal) Urine Ketones Negative (Negative) Urine Blood Neg (Negative) Urine Nitrate Negative (Negative) Urine Bilirubin Neg (Negative) Urine Urobilinogen Norm (Negative) mg/dL Ur Leukocyte Unique ase Negative (Negative) Urine Opiates Scre en Negative (Negative) ng/mL Ur Barbiturates Sc reen Negative (Negative) ng/mL Ur Phencyclidine S crn Negative (Negative) ng/mL Ur Amphetamines Sc reen Negative (Negative) ng/mL U Benzodiazepines Scrn Negative (Negative) ng/mL Urine Cocaine Scre en Negative (Negative) ng/mL U Marijuana (THC) Screen Negative (Negative) ng/mL EKG Data^: EKG 1: EKG interpretation date: 11/04/20 EKG interpretation time: 21:41 Prior EKG tracings: not available for review Interpretation: Sinus tachycardia cardia heart rate 104 nonspecific T wave changes. Discharge Plan Discharge Patient Disposition: Placed in Observation Clinical Impression: Suicidal ideation, Schizoaffective disorder, Auditory hallucinations Condition: Stable Prescriptions: No Action Depakote 500 mg tablet,delayed release (DR/EC) 500 mg PO BID Qty: 60 RF: 2 hydroxyzine pamoate 25 mg capsule 25 mg PO Q8H PRN (Reason: Anxiety) 30 Days Qty: 90 RF: 2 mirtazapine 30 mg tablet 45 mg PO BEDTIME Qty: 45 RF: 2 quetiapine 200 mg tablet 200 mg PO BID@07,12 Qty: 60 RF: 2 acetaminophen [Tylenol Extra Strength] 500 mg tablet 1,000 mg PO Q6H PRN (Reason: Pain) RF: 0 bupropion HCl 100 mg tablet sustained-release 12 hr 100 mg PO QAM Qty: 30 RF: 1 risperidone 1 mg tablet,disintegrating 1 mg PO BID PRN (Reason: psychosis) Qty: 60 RF: 1 levothyroxine 100 mcg Tablet 100 mcg PO DAILY@0700 30 Days Qty: 30 RF: 1 metoprolol succinate 25 mg Tablet Extended Release 24 Hr 25 mg PO DAILY@0700 30 Days Qty: 30 RF: 1 lisinopril 10 mg Tablet 10 mg PO DAILY@07 RF: 0 ibuprofen 800 mg tablet 800 mg PO Q8H PRN (Reason: pain) Qty: 20 RF: 0 quetiapine 400 mg tablet 400 mg PO BEDTIME@20 RF: 0 Naprosyn 500 mg tablet 500 mg PO BID PRN (Reason: pain) Qty: 20 RF: 0 Referrals: Sp Flowers MD [Primary Care Provider] - Coding Level of Care Code ED Oncology Specialist for Chg Fwd Exam Comprehensive
[2020-11-04 21:49] LABS: Add Urine Microscopic? NO; Charge for UA Resulting for Rev
[2020-11-04 21:52] LABS: Bilirubin Urine Neg (Negative); Blood Urine Neg (Negative); Glucose Urine UA Norm (Normal); Ketones Urine Negative (Negative); Leukocyte Esterase Urine Negative (Negative); Nitrate Urine Negative (Negative); Protein Urine Neg (Negative); Specific Gravity, Urine 1.005 (1.005-1.030); Urine Appearance Clear (CLEAR); Urine Color Colorless (Yellow); Urobilinogen Urine Norm (Negative); pH Urine 6.5 (5-7)
[2020-11-04 22:02] LABS: Amphetamines Screen Urine Negative (Negative); Barbiturates Screen Urine Negative (Negative); Benzodiazepines Screen Urine Negative (Negative); Cocaine Screen Urine Negative (Negative); Opiate Screen Urine Negative (Negative); PCP Screen Urine Negative (Negative); THC Screen Urine Negative (Negative)
[2020-11-04 22:15] LABS: Basophils % 0.6 %; Eosinophils # 0.4 10^3/uL (0.0-0.8); Eosinophils % 6.3 %; Hematocrit 45.4 % (42.0-52.0); Hemoglobin 15.4 g/dL (11.7-16.6); Lymphocytes # 2.6 10^3/uL (0.8-4.8); Lymphocytes % 37.7 %; Mean Corpuscular HGB Conc 33.9 g/dL (30.0-36.0); Mean Corpuscular Hemoglobin 31.4 pg (28.0-34.0); Mean Corpuscular Volume 92.5 fL (80-94); Mean Platelet Volume 9.7 fL (7.4-10.4); Monocytes # 0.5 10^3/uL (0.2-0.9); Monocytes % 7.6 %; Neutrophils # 3.25 10^3/uL (1.8-7.7); Neutrophils % 47.2 %; Nucleated Red Blood Cells % 0 %; Platelet Count 215 10^3/cmm (130-400); Red Blood Count 4.91 10^6/uL (4.1-5.3); Red Cell Distribution Width 12.5 % (12.1-15.1); White Blood Count 6.9 10^3/uL (4.0-10.0)
[2020-11-04 22:50] LABS: Alanine Aminotransferase 19 U/L (0-41); Albumin Level 4.5 g/dL (3.5-5.2); Alkaline Phosphatase 38 IU/L (40-130); Anion Gap 15.1 (5-19); Aspartate Amino Transferase 13 U/L (0-40); Blood Urea Nitrogen 7 mg/dL (6-20); Calcium 9.4 mg/dL (8.5-10.5); Carbon Dioxide 24 mmol/L (22-29); Chloride 101 mmol/L (98-107); Globulin 2.8 g/dL (1.3-4.6); Glomerular Filtration Rate 159.3 mL/min (90-130); Glucose 78 mg/dL (65-115); Osmolality Calculated 279 mOsm/kg (285-295); Potassium 4.1 mmol/L (3.5-5.1); Sodium 136 mmol/L (136-145); Thyroid Stimulating Hormone 1.58 uIU/mL (0.27-4.20); Total Bilirubin 0.3 mg/dL (0.15-1.2); Total Protein 7.3 g/dL (6.6-8.7)
[2020-11-04 22:52] VITALS: BP 155/84; PULSE 101; RESP 20; O2SAT 96
[2020-11-04 22:53] LABS: Acetaminophen < 5.0 ug/mL (10-30); Alcohol Level < 10 mg/dL (0-10); Salicylate < 0.3 mg/dL (3-10)
[2020-11-04 23:42] VITALS: BP 145/99; PULSE 98; RESP 18; TEMP 37.2; O2SAT 96
[2020-11-05] MEDS: hyDROXYzine 25 mg Capsule 50 MG PO ×3 (00:12→20:10)
[2020-11-05] MEDS: trazodone 50 mg Tablet PO ×2 (00:12→21:36)
[2020-11-05 06:00] VITALS: BP 102/64; PULSE 91; RESP 20; TEMP 36.8; O2SAT 94
[2020-11-05] MEDS: lisinopril 10 mg Tablet PO (06:41)
[2020-11-05] MEDS: buPROPion SR (12 HR) 100 mg Tablet PO (06:41)
[2020-11-05] MEDS: metoprolol succinate ER (24 HR) 25 mg Tablet PO (06:41)
[2020-11-05] MEDS: levothyroxine 100 mcg Tablet PO (06:41)
[2020-11-05] MEDS: divalproex DR 500 mg Tablet PO ×2 (08:26→17:53)
--- NOTE | 2020-11-05 10:26 | P.HP_ITS ---
Providers/Chief Complaint Admitting Physician: Abdi Castorena DO Primary Care Provider: Sp Flowers MD Chief Complaint: SI HPI NPU History of Present Illness Real Black is a 30 year old male who presented to the emergency department with the following report: Chief Complaint: Psychiatric Symptoms Stated Complaint: SI Time Seen by Provider: 11/04/20 21:31 History of Present Illness: HPI Narrative: This patient is a 30-year-old male who presents to the emergency department with complaint of hearing voices and suicidal ideation. Patient states the voices in his head is getting louder and continually telling to harm himself. Patient does have a history of suicidal ideation and attempt in the past and has been admitted for the same. Patient states he has a long history of hearing voices but seem getting worse now. Patient does have a history of schizoaffective disorder with panic swings. Will do medical evaluation treat as needed. Patient is requesting to be admitted because he is concerned that he will not be able to hold visits. Duration: constant, changing over time and getting worse History of same: Yes Relieving factors: none Exacerbating factors: none Associated symptoms: Reports auditory hallucinations and suicidal ideation; Deny depression. He was admitted to the neuropsychiatric unit for definitive treatment of those issues. Seizure presents today in his fifth hospitalization this year all under Dr. Castorena prior endorsing that he lives [facility] and that the reason why he came in was because his voices have gotten worse. And he cannot manage it. He was able to identify having a Wellbutrin and Depakote. We reviewed his medications and what he had issues with in the past. And so mainly he is tried most things and had an issue with Zyprexa. We did identify that Risperdal had some positive results he believes. We discussed the risk-benefit and alternatives of restarting Risperdal 1 mg twice a day and he understood agreed proceed as documented in this note. We reviewed his records and identified his 07/07/2020 outpatient evaluation from [facility] as being a comprehensive exploration of his history and excerpt is included below. Per his 07/07/2020 [facility] outpatient psychiatric evaluation: [facility] History and Physical Time In: 13:56 Time Out: 14:57 Chief Complaint: here for therapy and medications History of Present Illness: Information retrieved and edited from [facility] Comp. Clinical Assessment completed on: 05/26/20: anxiety and nervousness, wants therapy and medication management; moved here from [place]. Currently living at [facility], since 04/29/20. Before this arrangement, he was in [place], living at an certified medical technician assistant living facility. He has moved several times back and forth from [place] to [place]. He is hoping his father will retire and his parents will move to [place]; they have a farm in [place]. Real had services with [facility] in 2016. Says he was inpatient due to his voices getting bad and he was suicidal. He says his current diagnosis are bipolar and now he is diagnosed with schizoaffective disorder; he is currently on medications. He is not aware if anyone in his family has bipolar or schizo phrenia. He has had suicidal thoughts, chronic in nature. He tried to end his life in 2012 by hanging, reports the rope broke; previously held scissors to his throat; a cousin called him and that is what stopped him from doing it. He lived at [facility](assisted living facility in [place]) for four years, then moved to his Mom's friend's home in [place], [place]. Says he was referred to [facility] by friends of the [place]. Reported symptoms difficulty concentrating, thoughts hard to dismiss, annoyed and irritable, nervous feeling, worries and fears. Reported symptoms difficulty concentrating, thoughts hard to dismiss, annoyed and irritable, nervous feeling, worries and fears. Denied fatigue, pains, headache, or digestive problems. Current habits: Drinks 3 large glasses of tea per day; sometimes drinks 2 cups of coffee in the morning and 3 sodas during the day. Currently reports he sleeps from about midnight or 1 AM up until about 8 or 9 AM; usually obtains about 5 to 6 hours of rest during that time. He rarely takes a nap in the day. Sometimes skips breakfast, and usually eats lunch or dinner. He tries to walk 2 or 3 times per week (up to 1 and half to 2 miles at a time) for physical exe rcise. History Past Psychiatric History: Information retrieved and edited from [facility] Comp. Clinical Assessment completed on: 05/26/20: Real had services with [facility] in 2015; dx were: F25.1 Schizoaffective DO, Depressed Type; F15.20 Methamphetamine Use Disorder; he [facility]; refer to chart. Most recent inpatient hospitalization was from 06/12/20 to 1;included suicidal ideation; depressive disorder; and schizoaffective disorder. Real says hospitalization was due to his voices getting bad and he felt suicidal. History of chronic suicidal thoughts with a history of suicide gesture/attempt including: He tried to end his life in 2012 by hanging; the rope broke, he had scissors held to his throat; says a cousin called him and that is what stopped him from doing it. Real says every now and then his voices act up. He says he has one unre cognized male voice which tells him to do bad stuff to himself, but not to anyone else. Usually has increased depression and anxiety in the afternoon, usually from 2 PM to 5 PM. Reports he can a good day, and then out of the blue he doesn?t feel like doing anything; he feels worthless and down in the dumps for no reason; he says every now and then something may trigger it. He has anger problems and when he gets mad at himself, he has hurt himself in the past; hx of cutting; last time he cut himself was in 2018. He used a knife; was cutting his wrist, but hasn't cut deeply enough to be in the hospital. He expressed inability to concentrate, difficulty completing tasks, delayed responses during conversations. Says he had ADHD as a child; reported that he attended special classes, and took Concerta, Ritalin, and Adderall. Says the medication was beneficial at school, but usually wore off by the time he got home. Says he is able to control ADHD symptoms as an adult. Family History: Information retrieved and edited from [facility] Comp. Clinical Assessment completed on: 05/26/20 Family Psychiatric History: Anxiety and Depression History of Suicide in the Family: No Family history of substance abuse: Alcohol (father) Past Medical History: Information retrieved and edited from [facility] Comp. Clinical Assessment completed on: 05/26/20 Primary Care Provider: Yes (Dr. Flowers); last physical exam: Within past year (05.07.20) Client's Medical History: No major medical illness Surgical Procedure: Tonsillectomy; history of foot fracture Substance Use History: Information retrieved and edited from [facility] Comp. Clinical Assessment completed on: 05/26/20 Client history of substance abuse: Alcohol (yes) Age of onset (years): 13 Pattern of use: denied current use and has not used in 3 years; Cannabis (yes) Age of onset (years): 19 Pattern of use: denied current use; has not used in 3 years ; Amphetamine (yes) Age of onset (years): 21 Pattern of use: (previous snorting and smoking it );denied current use; has not used in 3 years; Nicotine (yes) Age of onset (years): 19 Pattern of use: current use: 1 ppd Client?s drug and/or alcohol use in the last 30 days: No Social History: Information retrieved and edited from [facility] Comp. Clinical Assessment completed on: 05/26/20 Childhood history: Real was born in [place]; at age [age], his parents moved near [place], [place]. When he was in 5th grade, he moved to [place]. He graduated high school, then moved to [place], [place]. He says he has a good childhood; his parents were in the home growing up and are still together. He is an only child. He is single; has no children. 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 History: Client denies service Abilities/Interests: tries to stay busy, likes to help others; he loves being outside; listens to music Legal Status/History: Current legal issues denied; denies previous arrests incarceration. Spiritual Pursuits: Other (he prays) Highest Education Level Reached: college (12th grade; reports he had ADHD in school and was on meds.) Academic Performance: Performance at grade level Meds NPU Home Medications Medication Instructions Recorded Confirmed Last Taken Type levothyroxine 100 mcg PO DAILY@0700 30 Days #30 05/21/20 11/05/20 11/04/20 06:00 Rx tab metoprolol succinate 25 mg PO DAILY@0700 30 Days #30 tab 01/11/05/20 11/04/20 07:00 Rx acetaminophen 500 mg tablet 1,000 mg PO Q6H PRN 08/03/20 11/05/20 11/04/20 09:00 History lisinopril 10 mg PO DAILY@07 08/03/20 11/05/20 11/04/20 07:00 History ibuprofen 800 mg PO Q8H PRN #20 tab 09/04/20 11/05/20 11/03/20 13:00 Rx divalproex 500 mg tablet,delayed 500 mg PO BID #60 tab 09/15/20 11/05/20 11/04/20 09:00 Rx release hydroxyzine pamoate 25 mg capsule 25 mg PO Q8H PRN 30 Days #90 cap 09/15/20 11/05/20 11/04/20 21:00 Rx mirtazapine 30 mg tablet 45 mg PO BEDTIME #45 tab 09/15/20 11/06/20 09/22/20 21: 00 Rx quetiapine 200 mg tablet 200 mg PO BID@ #60 tab 09/15/20 11/06/20 11/04/20 12:00 Rx quetiapine 400 mg PO BEDTIME 09/24/20 11/06/20 11/03/20 21:00 History naproxen [Naprosyn] 500 mg PO BID PRN #20 tab 10/01/20 11/06/20 Unknown Rx bupropion HCl 100 mg tablet,12 hr 100 mg PO QAM #30 tab 10/08/20 11/05/20 11/04/20 09:00 Rx sustained-release risperidone 1 mg disintegrating 1 mg PO BID PRN #60 tab 10/08/20 11/06/20 11/04/20 07:00 Rx tablet Allergies Allergy/AdvReac Type Severity Reaction Status Date / Time chlorpromazine Allergy Severe ALGY-Anaphy Verified 10/08/20 10:43 laxis haloperidol [From Haldol] Allergy Severe ALGY-Swell Verified 10/08/20 10:43 Lip/Tongue/Throat lurasidone [From Latuda] Allergy Severe ALGY-Swell Verified 10/08/20 10:43 Lip/Tongue/Throat olanzapine [From Zyprexa] Allergy Severe ALGY-Swell Verified 10/08/20 10:43 Lip/Tongue/Throat PFSH NPU PFSH: Medical History Depressive disorder Hallucination Schizoaffective disorder Schizoaffective disorder, depressive type Social History Smoking and tobacco status: current every day smoker cigarettes Packs smoked per day: 1 Years cigarettes smoked: 11 Quit status (tobacco): not considering quitting Second hand smoke exposure: Yes Mental Status Exam MSE Comments: Is an overweight versus obese white male with limited grooming and eye contact wearing hospital scrubs. No abnormal movements except for mild psychomotor retardation. Cooperative with exam in mild distress. Speech was normal rate, decreased volume. Mood described as a little anxious, affect congruent. Thought process organized. Thought content: Patient denied suicidal or homicidal ideation, but did report feeling like if the voices were not treated appropriately that he had concerns for suicide because he was having thoughts about that prior to admission, there were no delusions reported or noted, he endorsed auditory hallucinations that are becoming quite stressful. Attention and concentration were intact and memory appeared reliable but none were formally tested. He is alert and oriented x3. Insight and judgment are limited, impulse control appeared fair. Vitals/I&O/Wt Last Vital Signs Temp 98.3 F 11/05/20 06:00 Pulse 91 11/05/20 06:00 Resp 20 H 11/05/20 06:00 BP 102/64 11/05/20 06:00 Pulse Ox 94 11/05/20 06:00 Weight last 48 hrs Weight 90.718 kg Data NPU : 11/04/20 22:00 11/04/20 22:00 A&P Assessment and plan (1) Suicidal ideation: Status: Acute (2) Auditory hallucinations: Status: Acute (3) Schizoaffective disorder, depressive type: Status: Chronic Additional A&P Information This is a 30-year-old white male with a long history of mental health issues including diagnoses of schizoaffective disorder reporting increasing auditory hallucinations while on his medication. 1. Continue current medication. Except initiate Risperdal 1 mg p.o. twice daily. 2. Continue every 15 minute checks for safety. 3. Encourage individual, group and milieu therapies. 4. We will work with [facility] to allow for a safe return to independent living with them. Involuntary Hold Information 96 Hour Hold: 96 Hour Involuntary Admission: No Attestations NPU Medical Necessity Statement*: Inpatient hospitalization is medically necessary and the clinically appropriate intervention at this time. We will monitor medications and make changes as indicated. Patient will be in the hospital for over two midnights. Likely length of stay 2-4 days. 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
[2020-11-05 14:00] VITALS: BP 134/86; PULSE 104; RESP 18; TEMP 36.2; O2SAT 96
[2020-11-05] MEDS: risperiDONE 1 mg Tablet PO (20:09)
--- NOTE | 2020-11-05 20:18 | PC.NURSE ---
Addendum entered by Paulina Strong RN 11/06/20 00:42: Visteril was not effective, med nurse notified, physician contacted. Original Note: Vistaril 50mg PO given for anxiety. Pt states, I am hearing voices.
[2020-11-05 22:00] VITALS: BP 125/79; PULSE 87; RESP 18; TEMP 36.7; O2SAT 98
[2020-11-06 06:00] VITALS: BP 138/79; PULSE 88; RESP 17; TEMP 36.9; O2SAT 98
[2020-11-06] MEDS: levothyroxine 100 mcg Tablet PO (07:31)
[2020-11-06] MEDS: buPROPion SR (12 HR) 150 mg Tablet PO (09:09)
[2020-11-06] MEDS: quetiapine 100 mg Tablet 200 MG PO ×2 (09:09→17:56)
[2020-11-06] MEDS: lisinopril 10 mg Tablet PO (09:09)
[2020-11-06] MEDS: risperiDONE 1 mg Tablet PO ×2 (09:10→17:54)
[2020-11-06] MEDS: divalproex DR 500 mg Tablet PO ×2 (09:10→17:54)
[2020-11-06] MEDS: metoprolol succinate ER (24 HR) 25 mg Tablet PO (09:10)
[2020-11-06 14:00] VITALS: BP 114/70; PULSE 107; RESP 18; TEMP 36.8; O2SAT 96
--- NOTE | 2020-11-06 18:47 | P.PN_ITS ---
Subjective NPU Subjective: Interval history: Real presents today reporting that he is feeling better with the changes. He reports finally not feeling as anxious and on edge. We discussed reaching out to [facility] about him returning in the morning. He reports he is eating okay and sleeping fine. Mental Status Exam MSE Comments: This is an overweight versus obese white male with appropriate grooming and eye contact wearing hospital scrubs. No abnormal movements except for mild psychomotor retardation. Cooperative with exam in no acute distress. Speech was normal rate and volume. Mood described as a little better, affect congruent. Thought process organized. Thought content: Patient denied suicidal or homicidal ideation, there were no delusions reported or noted, he reported reduction in auditory hallucinations and denied visual hallucinations. Attention and concentration were intact and memory appeared reliable but none were formally tested. He is alert and oriented x3. Insight and judgment are limited, but improving and impulse control appeared fair. Vitals/I&O/Wt Last Vital Signs Temp 98.2 F 11/06/20 21:14 Pulse 116 H 11/06/20 21:14 Resp 22 H 11/06/20 21:14 BP 112/67 11/06/20 21:14 Pulse Ox 94 11/06/20 21:14 Data NPU : 11/04/20 22:00 11/04/20 22:00 A&P Additional A&P Information (1) Suicidal ideation: (2) Auditory hallucinations: (3) Schizoaffective disorder, depressive type: Additional A&P Information This is a 30-year-old white male with a long history of mental health issues including diagnoses of schizoaffective disorder reporting increasing auditory hallucinations while on his medication. 1. Continue current medication. 2. Continue every 15 minute checks for safety. 3. Encourage individual, group and milieu therapies. 4. We will consider discharge in the morning. Involuntary Hold Information 96 Hour Hold: 96 Hour Involuntary Admission: No Attestations NPU Medical Necessity Statement*: Inpatient hospitalization is medically necessary and the clinically appropriate intervention at this time. We will monitor medications and make changes as indicated. Likely length of stay 1-2 days. Coding Level of Care Code Acute Elevator Starter for Keny Ying
[2020-11-06 21:14] VITALS: BP 112/67; PULSE 116; RESP 22; TEMP 36.8; O2SAT 94
[2020-11-06] MEDS: quetiapine 100 mg Tablet PO (21:21)
[2020-11-06] MEDS: quetiapine 300 mg Tablet PO (21:21)
[2020-11-07 06:00] VITALS: BP 120/79; PULSE 84; RESP 20; TEMP 37; O2SAT 94
[2020-11-07] MEDS: levothyroxine 100 mcg Tablet PO (08:34)
[2020-11-07] MEDS: metoprolol succinate ER (24 HR) 25 mg Tablet PO (08:34)
[2020-11-07] MEDS: quetiapine 100 mg Tablet 200 MG PO (08:34)
[2020-11-07] MEDS: buPROPion SR (12 HR) 150 mg Tablet PO (08:34)
[2020-11-07] MEDS: lisinopril 10 mg Tablet PO (08:34)
[2020-11-07] MEDS: risperiDONE 1 mg Tablet PO (08:34)
[2020-11-07] MEDS: divalproex DR 500 mg Tablet PO (08:34)
--- NOTE | 2020-11-07 11:12 | P.DS_ITS ---
Diagnoses at Discharge Discharge Diagnosis (1) Suicidal ideation: Status: Acute (2) Auditory hallucinations: Status: Acute (3) Schizoaffective disorder, depressive type: Status: Chronic Reason for Visit Reason for Visit: SI Brief History: History of Present Illness Real Black is a 30 year old male who presented to the emergency department with the following report: Chief Complaint: Psychiatric Symptoms Stated Complaint: SI Time Seen by Provider: 11/04/20 21:31 History of Present Illness: HPI Narrative: This patient is a 30-year-old male who presents to the emergency department with complaint of hearing voices and suicidal ideation. Patient states the voices in his head is getting louder and continually telling to harm himself. Patient does have a history of suicidal ideation and attempt in the past and has been admitted for the same. Patient states he has a long history of hearing voices but seem getting worse now. Patient does have a history of schizoaffective disorder with panic swings. Will do medical evaluation treat as needed. Patient is requesting to be admitted because he is concerned that he will not be able to hold visits. Duration: constant, changing over time and getting worse History of same: Yes Relieving factors: none Exacerbating factors: none Associated symptoms: Reports auditory hallucinations and suicidal ideation; Deny depression. He was admitted to the neuropsychiatric unit for definitive treatment of those issues. Seizure presents today in his fifth hospitalization this year all under Dr. Castorena prior endorsing that he [facility] and that the reason why he came in was because his voices have gotten worse. And he cannot manage it. He was able to identify having a Wellbutrin and Depakote. We reviewed his medications and what he had issues with in the past. And so mainly he is tried most things and had an issue with Zyprexa. We did identify that Risperdal had some positive results he believes. We discussed the risk-benefit and alternatives of restarting Risperdal 1 mg twice a day and he understood agreed proceed as documented in this note. We reviewed his records and identified his 07/07/2020 outpatient evaluation from [facility] as being a comprehensive exploration of his history and excerpt is included below. Per his 07/07/2020 [facility] outpatient psychiatric evaluation: [facility] History and Physical Time In: 13:56 Time Out: 14:57 Chief Complaint: here for therapy and medications History of Present Illness: Information retrieved and edited from [facility] Comp. Clinical Assessment completed on: 05/26/20: anxiety and nervousness, wants therapy and medication management; moved here from [place]. Currently living at [facility], since 04/29/20. Before this arrangement, he was in [place], living at an [facility] [employer] living facility. He has moved several times back and forth from [place] to [place]. He is hoping his father will retire and his parents will move to [place]; they have a farm in [place]. Real had services with [facility] in 2015. Says he was inpatient due to his voices getting bad and he was suicidal. He says his current diagnosis are bipolar and now he is diagnosed with schizoaffective disorder; he is currently on medications. He is not aware if anyone in his family has bipolar or schizophrenia. He has had suicidal thoughts, chronic in nature. He tried to end his life in 2012 by hanging, reports the rope broke; previously held scissors to his throat; a cousin called him and that is what stopped him from doing it. He lived at [facility](assisted living facility in [place]) for four years, then moved to his Mom's friend's home in [place], [place]. Says he was referred to [facility] by friends of the [place]. Reported symptoms difficulty concentrating, thoughts hard to dismiss, annoyed and irritable, nervous feeling, worries and fears. Reported symptoms difficulty concentrating, thoughts hard to dismiss, annoyed and irritable, nervous feeling, worries and fears. Denied fatigue, pains, headache, or digestive problems. Current habits: Drinks 3 large glasses of tea per day; sometimes drinks 2 cups of coffee in the morning and 3 sodas during the day. Currently reports he sleeps from about midnight or 1 AM up until about 8 or 9 AM; usually obtains about 5 to 6 hours of rest during that time. He rarely takes a nap in the day. Sometimes skips breakfast, and usually eats lunch or dinner. He tries to walk 2 or 3 times per week (up to 1 and half to 2 miles at a time) for physical exercise. History Past Psychiatric History: Information retrieved and edited from [facility] Comp. Clinical Assessment completed on: 05/26/20: Real had services with [facility] in 2015; dx were: F25.1 Schizoaffective DO, Depressed Type; F15.20 Methamphetamine Use Disorder; he [facility]; refer to chart. Most recent inpatient hospitalization was from 06/12/20 to 06/15/20;included suicidal ideation; depressive disorder; and schizoaffective disorder. Real says hospitalization was due to his voices getting bad and he felt suicidal. History of chronic suicidal thoughts with a history of suicide gesture/attempt including: He tried to end his life in 2012 by hanging; the rope broke, he had scissors held to his throat; says a cousin called him and that is what stopped him from doing it. Real says every now and then his voices act up. He says he has one unrecognized male voice which tells him to do bad stuff to himself, but not to anyone else. Usually has increased depression and anxiety in the afternoon, usually from 2 PM to 5 PM. Reports he can a good day, and then out of the blue he doesn?t feel like doing anything; he feels worthless and down in the dumps for no reason; he says every now and then something may trigger it. He has anger problems and when he gets mad at himself, he has hurt himself in the past; hx of cutting; last time he cut himself was in 2018. He used a knife; was cutting his wrist, but hasn't cut deeply enough to be in the hospital. He expressed inability to concentrate, difficulty completing tasks, delayed responses during conversations. Says he had ADHD as a child; reported that he attended special classes, and took Concerta, Ritalin, and Adderall. Says the medication was beneficial at school, but usually wore off by the time he got home. Says he is able to control ADHD symptoms as an adult. Family History: Information retrieved and edited from [facility] Comp. Clinical Assessment completed on: 05/26/20 Family Psychiatric History: Anxiety and Depression History of Suicide in the Family: No Family history of substance abuse: Alcohol (father) Past Medical History: Information retrieved and edited from [facility] Comp. Clinical Assessment completed on: 05/26/20 Primary Care Provider: Yes (Dr. Flowers); last physical exam: Within past year (1.14.21) Client's Medical History: No major medical illness Surgical Procedure: Tonsillectomy; history of foot fracture Substance Use History: Information retrieved and edited from [facility] Comp. Clinical Assessment completed on: 05/26/20 Client history of substance abuse: Alcohol (yes) Age of onset (years): 13 Pattern of use: denied current use and has not used in 3 years; Cannabis (yes) Age of onset (years): 19 Pattern of use: denied current use; has not used in 3 years ; Amphetamine (yes) Age of onset (years): 21 Pattern of use: (previous snorting and smoking it );denied current use; has not used in 3 years; Nicotine (yes) Age of onset (years): 19 Pattern of use: current use: 1 ppd Client?s drug and/or alcohol use in the last 30 days: No Social History: Information retrieved and edited from [facility] Comp. Clinical Assessment completed on: 05/26/20 Childhood history: Real was born in [place]; at age [age], his parents moved near [place], [place]. When he was in 5th grade, he moved to [place]. He graduated high school, then moved to [place], [place]. He says he has a good childhood; his parents were in the home growing up and are still together. He is an only child. He is single; has no children. 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 History: Client denies service Abilities/Interests: tries to stay busy, likes to help others; he loves being outside; listens to music Legal Status/History: Current legal issues denied; denies previous arrests incarceration. Spiritual Pursuits: Other (he prays) Highest Education Level Reached: college (12th grade; reports he had ADHD in school and was on meds.) Academic Performance: Performance at grade level Hospital Course Hospital Course Real presented to the emergency department from his housing arrangement at [facility] psychosis and concern for suicidality. He was admitted to the neuropsychiatric unit for definitive treatment of those issues. Ultimately he slowly acclimated to the individual, group and milieu therapies provided. His Remeron was discontinued and Risperdal 1 mg p.o. twice daily was initiated with a positive response. He was able to contract for safety prior to discharge. During the hospitalization, patient had routine laboratory studies which were within normal limits except for few outliers. Additionally there was a general medical evaluation which was also within normal limits and revealed no new acute processes. Discharge Summary: At the time of discharge, lethality was denied and psychosis was resolving. Mood and anxiety were well managed. Patient endorsed a plan to avoid all drugs of abuse and follow-up with the aftercare recommendations of the treatment team. Patient was evaluated and deemed to be absent credible lethality, and had achieved the maximum benefit from an inpatient hospitalization, so was disc harged. Involuntary Hold Information 96 Hour Hold: 96 Hour Involuntary Admission: No Mental Status Exam MSE Comments: This is an overweight versus obese white male with appropriate grooming and eye contact wearing hospital scrubs. No abnormal movements except for mild psychomotor retardation. Cooperative with exam in no acute distress. Speech was normal rate and volume. Mood described as better, affect congruent. Thought process organized. Thought content: Patient denied suicidal or homicidal ideation, there were no delusions reported or noted, he reported reduction in auditory hallucinations and denied visual hallucinations. Attention and concentration were intact and memory appeared reliable but none were formally tested. He is alert and oriented x3. Insight and judgment are limited, but improving and impulse control appeared fair. Discharge Data Vitals: Last Vital Signs Temp 98.6 F 11/07/20 06:00 Pulse 84 11/07/20 06:00 Resp 20 H 11/07/20 06:00 BP 120/79 11/07/20 06:00 Pulse Ox 94 11/07/20 06:00 Discharge Plan Discharge Patient Disposition: Home Condition: Stable Prescriptions: New risperidone 1 mg Tablet 1 mg PO BID 30 Days Qty: 60 RF: 1 Continued Depakote 500 mg tablet,delayed release (DR/EC) 500 mg PO BID Qty: 60 RF: 2 hydroxyzine pamoate 25 mg capsule 25 mg PO Q8H PRN (Reason: Anxiety) 30 Days Qty: 90 RF: 2 quetiapine 200 mg tablet 200 mg PO BID@07,12 Qty: 60 RF: 2 acetaminophen [Tylenol Extra Strength] 500 mg tablet 1,000 mg PO Q6H PRN (Reason: Pain) RF: 0 bupropion HCl 100 mg tablet sustained-release 12 hr 100 mg PO QAM Qty: 30 RF: 1 levothyroxine 100 mcg Tablet 100 mcg PO DAILY@0700 30 Days Qty: 30 RF: 1 metoprolol succinate 25 mg Tablet Extended Release 24 Hr 25 mg PO DAILY@0700 30 Days Qty: 30 RF: 1 risperidone 1 mg tablet,disintegrating 1 mg PO BID PRN (Reason: psychosis) 30 Days Qty: 60 RF: 1 quetiapine 400 mg tablet 400 mg PO BEDTIME 30 Days Qty: 30 RF: 1 lisinopril 10 mg Tablet 10 mg PO DAILY@07 RF: 0 ibuprofen 800 mg tablet 800 mg PO Q8H PRN (Reason: pain) Qty: 20 RF: 0 naproxen [Naprosyn] 500 mg tablet 500 mg PO BID PRN (Reason: pain) Qty: 20 RF: 0 Discontinued mirtazapine 30 mg tablet 45 mg PO BEDTIME Qty: 45 RF: 2 Discharge Orders: Discharge Order (Routine); Ordered 11/07/20 Ordered By: Troy tSevens Referrals: Patria Mckinney APRN [Nurse Practitioner] - 11/17/20 11:00 am Sp Flowers MD [Primary Care Provider] - Discharge Diet: Regular Discharge Activity: Resume usual activity Patient Instructions: Depression (DC), Generalized Anxiety Disorder (DC), Opioid Safety Discharge Attestations NPU Time Spent in Discharge Care*: less than 30 min Specific Discharge Activities: Specific discharge activities: educating pat ient, discussing with rn case mgr/social workers/dc planners, documenting/other paperwork and evaluating patient/reviewing data Status at Discharge: Cognitive status at discharge: cognitively intact , Behavioral status at discharge: cooperative , Coding Level of Care Code Acute Chg FW DC note Diagnoses Suicidal ideation R45.851 Auditory hallucinations R44.0 Schizoaffective disorder, depressive type F25.1
[2020-11-07 11:15] VITALS: BP 120/79; PULSE 84; RESP 20; TEMP 37; O2SAT 94
--- NOTE | 2020-11-09 18:35 | PC.RESP ---
SMOKING CESSATION INFORMATION SENT TO PATIENT.
== END 2020-11-07 11:52 | disposition home or self-care (01) | DRG 885 ==
LOC: ER 22:20 → NP 11-05 10:19
PROVIDERS: Admitting Provider Psychiatry & Neurology Psychiatry; Emergency Provider Emergency Medicine; PCP Family Medicine; Visit Provider Psychiatry & Neurology Psychiatry
DX: F25.1 Schizoaffective disorder, depressive type (principal); R45.851 Suicidal ideations; F17.210 Nicotine dependence, cigarettes, uncomplicated; Z91.5 Personal history of self-harm
CPT/HCPCS: 80053; 80306; 80307; 81003; 84443; 85025; 93005

== ENCOUNTER → 2020-12-10 10:00 | Outpatient (BNVA) | payer MEDICARE, MEDICAID, OTHER, SELFPAY | PROVIDERS: PCP Family Medicine; Visit Provider Nurse Practitioner Psychiatric/Mental Health | DX: F25.1 Schizoaffective disorder, depressive type (principal); R44.0 Auditory hallucinations; Z79.899 Other long term (current) drug therapy | CPT/HCPCS: 80061; 83036; 99214 ==

== ENCOUNTER 2020-12-14 23:24 | Inpatient (IN) | payer MEDICARE, MEDICAID, SELFPAY ==
[2020-12-11 11:23] VITALS: BP 133/83; BMI 32.1
[2020-12-14 23:32] VITALS: BP 135/85; PULSE 101; RESP 18; TEMP 36.8; O2SAT 95; BMI 32.5
--- NOTE | 2020-12-14 23:52 | W.ED.PSYCH ---
HPI - Psych General: Chief Complaint: Psychiatric Symptoms Stated Complaint: SI Time Seen by Provider: 12/14/20 23:40 Source: patient Mode of arrival: ambulatory Limitations: no limitations History of Present Illness: HPI Narrative: Patient is a 30-year-old male who presents to ED today with a complaint of auditory hallucinations and suicidal ideations. Patient tells me he was at [facility] last month for hallucinations and states they adjusted some of his medications. He feels like the hallucinations are slightly improved but are still telling him to harm himself. He has no specific plan to kill himself. He does have a previous suicide attempt years ago . He is not homicidal. He is not having any visual hallucinations. He denies drug or alcohol use. MD complaint: suicidal ideation and other (Auditory hallucinations) Duration: constant History of same: Yes Context: new medication(s) Associated psychiatric symptoms: depression, suicidal ideation and auditory hallucinations Associated symptoms: Reports auditory hallucinations, depression and suicidal ideation; Deny visual hallucinations or homicidal ideation Treatments prior to arrival: none If self harm: admits thoughts of self harm Review of Systems Const: Denies: fever(s) or chills Card: Denies: chest pain, palpitations, lightheadedness or syncope Resp: Denies: dyspnea GI: Denies: abdominal pain, nausea, vomiting or diarrhea Skin/Breast: Denies: rash Neuro: Denies: headache(s) Psych: Reports: depression, auditory hallucinations and suicidal ideation; Denies: panic attacks, irritability, paranoia, visual hallucinations or homicidal ideation [facility] ED PFSH: Medical History (Updated 12/15/20 @ 00:58 by ALLY Esparza) Depressive disorder Hallucination Schizoaffective disorder, depressive type Family History (Updated 11/30/20 @ 11:09 by Jessica Parsons RN) Other Diabetes Hypertension Social History (Updated 12/01/20 @ 09:11 by Jessica Parsons RN) Smoking and tobacco status: former smoker Quit status (tobacco): has quit using tobacco Year quit tobacco: 10/21/2020 Former quit date comment: patient had been smoking for 10 years Second hand smoke exposure: Yes Alcohol intake: never Adopted: No Caregiver/support person: Yes Lives independently: No (Staying at [facility]) Household members: other Details: Multiple other residents at the facility. 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 Current occupational exposures/hazards: No Pets and animals: Yes Pets & animals: cat(s) History of recent travel: Yes (Just moved here from [place] in March.) Out of state: Yes Out of country: No Leisure activites: exercise, music, games and other Leisure activities details: watch TV Sexually active: No Current gender identity: Male Paola/Catholic: None Special paola needs: No Agree to transfusion: Yes Financial difficulty paying for basics: Not Very Hard Physical Exam Const: COMMON NORMALS: no acute distress, patient oriented x3, no limitations and alert NUTRITIONAL APPEARANCE: overweight ORIENTATION/CONSCIOUSNESS: Yes awake, Yes oriented to person, Yes oriented to place and Yes oriented to time Resp: COMMON NORMALS: normal respiratory effort and clear to auscultation bilaterally AUSCULTATION: clear to auscultation bilaterally Cardio: COMMON NORMALS: regular rate and regular rhythm RATE: regular rate RHYTHM: regular rhythm Neuro: TRISHA COMA SCALE: document GCS findings Trisha coma scale eye opening: Spontaneous Trisha coma scale verbal response: Orientated [place] coma scale motor response: Obey commands [place] coma scale total score: 15 COMMON NORMALS: patient oriented x3, CN's II-XII intact bilaterally, moves all extremities, no focal motor deficits, no sensory deficits noted and gait normal SENSORIUM/ORIENTATION: Yes alert, Yes oriented to person, Yes oriented to place and Yes oriented to time Psych: COMMON NORMALS: mental status grossly normal, Normal thought process present, cooperative, normal affect, speech normal, activity/motor behavior normal, denies hallucinations and denies homicidal ideation APPEARANCE: Yes grossly normal ATTITUDE: Yes calm ACTIVITY/MOTOR BEHAVIOR: Yes appropriate eye contact SPEECH: Yes normal speech MOOD & AFFECT: Yes euthymic mood THOUGHT PROCESS: Normal thought process present THOUGHT CONTENT: Yes Normal thought content present ATTENTION/CONCENTRATION: Yes attention grossly intact and Yes concentration grossly intact MEMORY/COGNITION: Yes memory grossly intact and Yes cognition grossly intact INSIGHT: Good insight present (Psych) JUDGEMENT: Good judgement present (Psych) Course Consultations: Consultation #1: Dr. Stevens-accepts to N[facility] Vital Signs: Vital signs: Vital Signs Temperature 98.2 F 12/14/20 23:32 Pulse Rate 101 H 12/14/20 23:32 Respiratory Rate 18 12/14/20 23:32 Blood Pressure 135/85 12/14/20 23:32 Pulse Oximetry 95 12/14/20 23:32 MDM - Psych Lab Data: Labs: Lab Results 12/14/20 12/14/20 12/14/20 Range/Units 23:50 23:50 23:50 WBC 8.3 (4.0-10.0) 10^3/ uL RBC 4.91 (4.1-5.3) 10^6/u L Hgb 15.2 (11.7-16.6) g/dL Hct 45.1 (42.0-52.0) % MCV 91.9 (80-94) fl MCH 31.0 (28.0-34.0) pg MCHC 33.7 (30.0-36.0) g/dL RDW 12.4 (12.1-15.1) % Plt Count 238 (130-400) 10^3/c mm MPV 9.7 (7.4-10.4) fL Neut % (Auto) 50.5 % Lymph % (Auto) 39.4 % [place] % (Auto) 5.1 % Eos % (Auto) 4.2 % Baso % (Auto) 0.4 % Neut # (Auto) 4.19 (1.8-7.7) 10^3/u L Lymph # (Auto) 3.3 (0.8-4.8) 10^3/u L [place] # (Auto) 0.4 (0.2-0.9) 10^3/u L Eos # (Auto) 0.4 (0.0-0.8) 10^3/u L Baso # (Auto) 0.0 (0.0-0.1) 10^3/u L Nucleated RBC % (a uto) 0 % Nucleated RBCs # 0.0 /100WBC Sodium 135 L (136-145) mmol/L Potassium 3.7 (3.5-5.1) mmol/L Chloride 100 (98-107) mmol/L Carbon Dioxide 21 L (22-29) mmol/L Anion Gap 17.7 (5-19) BUN 16 (6-20) mg/dL Creatinine 0.6 L (0.7-1.2) mg/dL GFR Calculation 159.3 H (90-130) mL/min Glucose 108 (65-115) mg/dL Calculated Osmolal ity 282 L (285-295) mOsm/k g Calcium 9.5 (8.5-10.5) mg/dL Total Bilirubin 0.4 (0.15-1.2) mg/dL AST 15 (0-40) U/L ALT 30 (0-41) U/L Alkaline Phosphata se 33 L (40-130) IU/L Total Protein 7.5 (6.6-8.7) g/dL Albumin 4.6 (3.5-5.2) g/dL Globulin 2.9 (1.3-4.6) g/dL TSH (0.27-4.20) uIU/ mL Free T4 (0.82-1.77) ng/d L Urine Color (Yellow) Urine Appearance (CLEAR) Urine pH (5-7) Ur Specific Gravit y (1.005-1.030) Urine Protein (Negative) Urine Glucose (UA) (Normal) Urine Ketones (Negative) Urine Blood (Negative) Urine Nitrate (Negative) Urine Bilirubin (Negative) Urine Urobilinogen (Negative) mg/dL Ur Leukocyte Unique ase (Negative) Salicylates < 0.3 L (3-10) mg/dL Urine Opiates Scre en Negative (Negative) ng/mL Acetaminophen < 5.0 L (10-30) ug/mL Ur Barbiturates Sc reen Negative (Negative) ng/mL Ur Phencyclidine S crn Negative (Negative) ng/mL Ur Amphetamines Sc reen Negative (Negative) ng/mL U Benzodiazepines Scrn Negative (Negative) ng/mL Urine Cocaine Scre en Negative (Negative) ng/mL U Marijuana (THC) Screen Negative (Negative) ng/mL Ethyl Alcohol < 10 (0-10) mg/dL 12/14/20 12/14/20 Range/Units 23:50 23:50 WBC (4.0-10.0) 10^3/ uL RBC (4.1-5.3) 10^6/u L Hgb (11.7-16.6) g/dL Hct (42.0-52.0) % MCV (80-94) fl MCH (28.0-34.0) pg MCHC (30.0-36.0) g/dL RDW (12.1-15.1) % Plt Count (130-400) 10^3/c mm MPV (7.4-10.4) fL Neut % (Auto) % Lymph % (Auto) % [place]well % (Auto) % Eos % (Auto) % Baso % (Auto) % Neut # (Auto) (1.8-7.7) 10^3/u L Lymph # (Auto) (0.8-4.8) 10^3/u L [place]well # (Auto) (0.2-0.9) 10^3/u L Eos # (Auto) (0.0-0.8) 10^3/u L Baso # (Auto) (0.0-0.1) 10^3/u L Nucleated RBC % (a uto) % Nucleated RBCs # /100WBC Sodium (136-145) mmol/L Potassium (3.5-5.1) mmol/L Chloride (98-107) mmol/L Carbon Dioxide (22-29) mmol/L Anion Gap (5-19) BUN (6-20) mg/dL Creatinine (0.7-1.2) mg/dL GFR Calculation (90-130) mL/min Glucose (65-115) mg/dL Calculated Osmolal ity (285-295) mOsm/k g Calcium (8.5-10.5) mg/dL Total Bilirubin (0.15-1.2) mg/dL AST (0-40) U/L ALT (0-41) U/L Alkaline Phosphata se (40-130) IU/L Total Protein (6.6-8.7) g/dL Albumin (3.5-5.2) g/dL Globulin (1.3-4.6) g/dL TSH 6.65 H (0.27-4.20) uIU/ mL Free T4 1.55 (0.82-1.77) ng/d L Urine Color Straw (Yellow) Urine Appearance Clear (CLEAR) Urine pH 6.5 (5-7) Ur Specific Gravit y 1.015 (1.005-1.030) Urine Protein Neg (Negative) Urine Glucose (UA) Norm (Normal) Urine Ketones Negative (Negative) Urine Blood Neg (Negative) Urine Nitrate Negative (Negative) Urine Bilirubin Neg (Negative) Urine Urobilinogen Norm (Negative) mg/dL Ur Leukocyte Unique ase Negative (Negative) Salicylates (3-10) mg/dL Urine Opiates Scre en (Negative) ng/mL Acetaminophen (10-30) ug/mL Ur Barbiturates Sc reen (Negative) ng/mL Ur Phencyclidine S crn (Negative) ng/mL Ur Amphetamines Sc reen (Negative) ng/mL U Benzodiazepines Scrn (Negative) ng/mL Urine Cocaine Scre en (Negative) ng/mL U Marijuana (THC) Screen (Negative) ng/mL Ethyl Alcohol (0-10) mg/dL Discharge Plan Discharge Patient Disposition: Admitted As Inpatient Clinical Impression: Suicidal ideation, Auditory hallucinations Condition: Stable Prescriptions: No Action risperidone 4 mg tablet 4 mg PO DAILY Qty: 30 RF: 1 risperidone 2 mg tablet 2 mg PO BID Qty: 60 RF: 1 acetaminophen [Tylenol Extra Strength] 500 mg tablet 1,000 mg PO Q6H PRN (Reason: Pain) RF: 0 bupropion HCl 100 mg tablet sustained-release 12 hr 100 mg PO QAM Qty: 30 RF: 1 Depakote 500 mg tablet,delayed release (DR/EC) 500 mg PO BID Qty: 60 RF: 1 hydroxyzine pamoate 25 mg capsule 25 mg PO Q8H PRN (Reason: Anxiety) 30 Days Qty: 90 RF: 1 levothyroxine 100 mcg Tablet 100 mcg PO DAILY@0700 30 Days Qty: 30 RF: 1 metoprolol succinate 25 mg Tablet Extended Release 24 Hr 25 mg PO DAILY@0700 30 Days Qty: 30 RF: 1 risperidone 1 mg tablet,disintegrating 1 mg PO BID PRN (Reason: psychosis) 30 Days Qty: 60 RF: 1 lisinopril 10 mg Tablet 10 mg PO DAILY@07 RF: 0 ibuprofen 800 mg tablet 800 mg PO Q8H PRN (Reason: pain) Qty: 20 RF: 0 naproxen [Naprosyn] 500 mg tablet 500 mg PO BID PRN (Reason: pain) Qty: 20 RF: 0 Referrals: Sp Flowers MD [Primary Care Provider] - Coding Level of Care Code ED Project Management Instructor for Chg Fwd Exam Detailed
[2020-12-14 23:58] LABS: Basophils % 0.4 %; Eosinophils # 0.4 10^3/uL (0.0-0.8); Eosinophils % 4.2 %; Hematocrit 45.1 % (42.0-52.0); Hemoglobin 15.2 g/dL (11.7-16.6); Lymphocytes # 3.3 10^3/uL (0.8-4.8); Lymphocytes % 39.4 %; Mean Corpuscular HGB Conc 33.7 g/dL (30.0-36.0); Mean Corpuscular Volume 91.9 fl (80-94); Mean Platelet Volume 9.7 fL (7.4-10.4); Monocytes # 0.4 10^3/uL (0.2-0.9); Monocytes % 5.1 %; Neutrophils # 4.19 10^3/uL (1.8-7.7); Neutrophils % 50.5 %; Nucleated Red Blood Cells % 0 %; Platelet Count 238 10^3/cmm (130-400); Red Blood Count 4.91 10^6/uL (4.1-5.3); Red Cell Distribution Width 12.4 % (12.1-15.1); White Blood Count 8.3 10^3/uL (4.0-10.0)
[2020-12-14 23:59] LABS: Add Urine Microscopic? NO; Charge for UA Resulting for Rev
[2020-12-15 00:03] LABS: Bilirubin Urine Neg (Negative); Blood Urine Neg (Negative); Glucose Urine UA Norm (Normal); Ketones Urine Negative (Negative); Leukocyte Esterase Urine Negative (Negative); Nitrate Urine Negative (Negative); Protein Urine Neg (Negative); Specific Gravity, Urine 1.015 (1.005-1.030); Urine Appearance Clear (CLEAR); Urine Color Straw (Yellow); Urobilinogen Urine Norm (Negative); pH Urine 6.5 (5-7)
[2020-12-15 00:12] LABS: Amphetamines Screen Urine Negative (Negative); Barbiturates Screen Urine Negative (Negative); Benzodiazepines Screen Urine Negative (Negative); Cocaine Screen Urine Negative (Negative); Opiate Screen Urine Negative (Negative); PCP Screen Urine Negative (Negative); THC Screen Urine Negative (Negative)
[2020-12-15 00:21] LABS: Acetaminophen < 5.0 ug/mL (10-30); Alanine Aminotransferase 30 U/L (0-41); Albumin Level 4.6 g/dL (3.5-5.2); Alcohol Level < 10 mg/dL (0-10); Alkaline Phosphatase 33 IU/L (40-130); Anion Gap 17.7 (5-19); Aspartate Amino Transferase 15 U/L (0-40); Blood Urea Nitrogen 16 mg/dL (6-20); Calcium 9.5 mg/dL (8.5-10.5); Carbon Dioxide 21 mmol/L (22-29); Chloride 100 mmol/L (98-107); Globulin 2.9 g/dL (1.3-4.6); Glomerular Filtration Rate 159.3 mL/min (90-130); Glucose 108 mg/dL (65-115); Osmolality Calculated 282 mOsm/kg (285-295); Potassium 3.7 mmol/L (3.5-5.1); Salicylate < 0.3 mg/dL (3-10); Sodium 135 mmol/L (136-145); Total Bilirubin 0.4 mg/dL (0.15-1.2); Total Protein 7.5 g/dL (6.6-8.7)
[2020-12-15 00:31] LABS: Free T4 Free Thyroxine 1.55 ng/dL (0.82-1.77); Thyroid Stimulating Hormone 6.65 uIU/mL (0.27-4.20)
[2020-12-15 02:56] VITALS: RESP 16
[2020-12-15 03:00] VITALS: BP 141/92; PULSE 96; RESP 20; TEMP 36.7; O2SAT 96
[2020-12-15 06:00] VITALS: BP 128/87; PULSE 73; RESP 17; TEMP 36.9; O2SAT 96
[2020-12-15] MEDS: divalproex DR 500 mg Tablet PO ×2 (08:45→17:28)
[2020-12-15] MEDS: lisinopril 10 mg Tablet PO (08:45)
[2020-12-15] MEDS: metoprolol succinate ER (24 HR) 25 mg Tablet PO (08:45)
[2020-12-15] MEDS: levothyroxine 100 mcg Tablet PO (08:45)
[2020-12-15] MEDS: buPROPion SR (12 HR) 100 mg Tablet PO (08:45)
--- NOTE | 2020-12-15 12:19 | NPU.GN ---
[facility] Topic: 2 true pone false General Mood of Group: Patient did attend group, he was properly dressed, on time, and had good hygiene. In group we played a game called 2 true one false. Everyone had to come up with 2 true statements about their self and one false statement about their self, this was a way to get group members to openly talk about themselves. They are able to utilize positive self talk. The group interacted properly and openly. We discussed the purpose of NPU, ways to openly speak with the physician and discussed the purpose of hospice social worker and safe discharge.
[2020-12-15 14:00] VITALS: BP 115/79; PULSE 86; RESP 18; TEMP 36.2; O2SAT 96
--- NOTE | 2020-12-15 17:03 | P.HP_ITS ---
Providers/Chief Complaint Admitting Physician: Troy Stevens MD Primary Care Provider: Sp Flowers MD Chief Complaint: SI HPI NPU History of Present Illness Real Black is a 30 year old male who presented to the emergency department with the following report: Chief Complaint: Psychiatric Symptoms Stated Complaint: SI Time Seen by Provider: 12/14/20 23:40 Source: patient Mode of arrival: ambulatory Limitations: no limitations History of Present Illness: HPI Narrative: Patient is a 30-year-old male who presents to ED today with a complaint of auditory hallucinations and suicidal ideations. Patient tells me he was at NPU last month for hallucinations and states they adjusted some of his medications. He feels like the hallucinations are slightly improved but are still telling him to harm himself. He has no specific plan to kill himself. He does have a previous suicide attempt years ago . He is not homicidal. He is not having any visual hallucinations. He denies drug or alcohol use. MD complaint: suicidal ideation and other (Auditory hallucinations) Duration: constant History of same: Yes Context: new medication(s) Associated psychiatric symptoms: depression, suicidal ideation and auditory hallucinations Associated symptoms: Reports auditory hallucinations, depression and suicidal ideation; Deny visual hallucinations or homicidal ideation Treatments prior to arrival: none If self harm: admits thoughts of self harm. He was admitted to the neuropsychiatric unit for definitive treatment of those issues. Patient presents today reporting that he was really struggling with side effects to the medication and was thought that Seroquel was the culprit. He reports that the Seroquel was discontinued and the Risperdal which was started at 1 mg twice a day at his [facility] hospitalization here by this check writer salesperson was ultimately increased to 8 mg daily in divided doses. Over the time since those changes he has had significant EPS with cognitive slowing, stiffness, feeling like he cannot speak like his tongue is full and has felt fairly bad. And a response to this in his interactions with his outside providers but just cut his Risperdal in half taking away the previous nighttime dose of 4 mg. He is now on 2 mg twice a day. We discussed the risk benefits and alternatives of making sure he was getting Cogentin with his Risperdal and he reports that he has had success with Cogentin and he understood agreed to proceed as documented in his note. He denies substantive changes otherwise and an excerpt from his 11/05/2020 hospitalization is included below for context. Per his 11/05/2020 [facility] inpatient psychiatric evaluation: History of Present Illness Real Black is a 30 year old male who presented to the emergency department with the following report: Chief Complaint: Psychiatric Symptoms Stated Complaint: SI Time Seen by Provider: 11/04/20 21:31 History of Present Illness: HPI Narrative: This patient is a 30-year-old male who presents to the emergency department with complaint of hearing voices and suicidal ideation. Patient states the voices in his head is getting louder and continually telling to harm himself. Patient does have a history of suicidal ideation and attempt in the past and has been admitted for the same. Patient states he has a long history of hearing voices but seem getting worse now. Patient does have a history of schizoaffective disorder with panic swings. Will do medical evaluation treat as needed. Patient is requesting to be admitted because he is concerned that he will not be able to hold visits. Duration: constant, changing over time and getting worse History of same: Yes Relieving factors: none Exacerbating factors: none Associated symptoms: Reports auditory hallucinations and suicidal ideation; Deny depression. He was admitted to the neuropsychiatric unit for definitive treatment of those issues. Seizure presents today in his fifth hospitalization this year all under Dr. Castorena prior endorsing that he [facility] and that the reason why he came in was because his voices have gotten worse. And he cannot manage it. He was able to identify having a Wellbutrin and Depakote. We reviewed his medications and what he had issues with in the past. And so mainly he is tried most things and had an issue with Zyprexa. We did identify that Risperdal had some positive results he believes. We discussed the risk-benefit and alter natives of restarting Risperdal 1 mg twice a day and he understood agreed proceed as documented in this note. We reviewed his records and identified his 07/07/2020 outpatient evaluation from [facility] as being a comprehensive exploration of his history and excerpt is included below. Per his 07/07/2020 [facility] outpatient psychiatric evaluation: [facility] History and Physical Time In: 13:56 Time Out: 14:57 Chief Complaint: here for therapy and medications History of Present Illness: Information retrieved and edited from [facility] Comp. Clinical Assessment completed on: 05/26/20: anxiety and nervousness, wants th erapy and medication management; moved here from [place]. Currently living at [facility], since 04/29/20. Before this arrangement, he was in [place], living at an care assistant living facility. He has moved several times back and forth from [place] to [place]. He is hoping his father will retire and his parents will move to [place]; they have a farm in [place]. Real had services with [facility] in 2015. Says he was inpatient due to his voices getting bad and he was suicidal. He says his current diagnosis are bipolar and now he is diagnosed with schizoaffective disorder; he is currently on medications. He is not aware if anyone in his family has bipolar or schizophrenia. He has had suicidal thoughts, chronic in nature. He tried to end his life in 2012 by hanging, reports the rope broke; previously held scissors to his throat; a cousin called him and that is what stopped him from doing it. He lived at [facility](assisted living facility in [place]) for four years, then moved to his Mom's friend's home in [place], [place]. Says he was referred to [facility] by friends of the [place]. Reported symptoms difficulty concentrating, thoughts hard to dismiss, annoyed and irritable, nervous feeling, worries and fears. Reported symptoms difficulty concentrating, thoughts hard to dismiss, annoyed and irritable, nervous feeling, worries and fears. Denied fatigue, pains, headache, or digestive problems. Current habits: Drinks 3 large glasses of tea per day; sometimes drinks 2 cups of coffee in the morning and 3 sodas during the day. Currently reports he sleeps from about midnight or 1 AM up until about 8 or 9 AM; usually obtains about 5 to 6 hours of rest during that time. He rarely takes a nap in the day. Sometimes skips breakfast, and usually eats lunch or dinner. He tries to walk 2 or 3 times per week (up to 1 and half to 2 miles at a time) for physical exercise. History Past Psychiatric History: Information retrieved and edited from [facility] Comp. Clinical Assessment completed on: 05/26/20: Real had services with [facility] in 2015; dx were: F25.1 Schizoaffective DO, Depressed Type; F15.20 Methamphetamine Use Disorder; he has had several [facility] stays [facility]; refer to chart. Most recent inpatient hospitalization was from 06/12/20 to 06/15/20;included suicidal ideation; depressive disorder; and schizoaffective disorder. Real says hospitalization was due to his voices getting bad and he felt suicidal. History of chronic suicidal thoughts with a history of suicide gesture/attempt including: He tried to end his life in 2012 by hanging; the rope broke, he had scissors held to his throat; says a cousin called him and that is what stopped him from doing it. Real says every now and then his voices act up. He says he has one unrecognized male voice which tells him to do bad stuff to himself, but not to anyone else. Usually has increased depression and anxiety in the afternoon, usually from 2 PM to 5 PM. Reports he can a good day, and then out of the blue he doesn?t feel like doing anything; he feels worthless and down in the dumps for no reason; he says every now and then something may trigger it. He has anger problems and when he gets mad at himself, he has hurt himself in the past; hx of cutting; last time he cut himself was in 2018. He used a knife; was cutting his wrist, but hasn't cut deeply enough to be in the hospital. He expressed inability to concentrate, difficulty completing tasks, delayed responses during conversations. Says he had ADHD as a child; reported that he attended special classes, and took Concerta, Ritalin, and Adderall. Says the medication was beneficial at school, but usually wore off by the time he got home. Says he is able to control ADHD symptoms as an adult. Family History: Information retrieved and edited from [facility] Comp. Clinical Assessment completed on: 05/26/20 Family Psychiatric History: Anxiety and Depression History of Suicide in the Family: No Family history of substance abuse: Alcohol (father) Past Medical History: Information retrieved and edited from [facility] Comp. Clinical Assessment completed on: 05/26/20 Primary Care Provider: Yes (Dr. Flowers); last physical exam: Within past year (05.07.20) Client's Medical History: No major medical illness Surgical Procedure: Tonsillectomy; history of foot fracture Substance Use History: Information retrieved and edited from [facility] Comp. Clinical Assessment completed on: 05/26/20 Client history of substance abuse: Alcohol (yes) Age of onset (years): 13 Pattern of use: denied current use and has not used in 3 years; Cannabis (yes) Age of onset (years): 19 Pattern of use: denied current use; has not used in 3 years ; Amphetamine (yes) Age of onset (years): 21 Pattern of use: (previous snorting and smoking it );denied current use; has not used in 3 years; Nicotine (yes) Age of onset (years): 19 Pattern of use: current use: 1 ppd Client?s drug and/or alcohol use in the last 30 days: No Social History: Information retrieved and edited from [facility] Comp. Clinical Assessment completed on: 05/26/20 Childhood history: Real was born in [place]; at age [age], his parents moved near [place], [place]. When he was in 5th grade, he moved to [place]. He graduated high school, then moved to [place], [place]. He says he has a good childhood; his parents were in the home growing up and are still together. He is an only child. He is single; has no children. 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 History: Client denies service Abilities/Interests: tries to stay busy, likes to help others; he loves being outside; listens to music Legal Status/History: Current legal issues denied; denies previous arrests incarceration. Spiritual Pursuits: Other (he prays) Highest Education Level Reached: college (12th grade; reports he had ADHD in school and was on meds.) Academic Performance: Performance at grade level Meds NPU Home Medications Medication Instructions Recorded Confirmed Last Taken Type acetaminophen 500 mg tablet 1,000 mg PO Q6H PRN 08/03/20 12/15/20 11/04/20 09:00 History lisinopril 10 mg PO DAILY 08/03/20 12/15/20 11/04/20 07:00 History ibuprofen 800 mg PO Q8H PRN #20 tab 09/04/20 12/15/20 11/03/20 13:00 Rx naproxen [Naprosyn] 500 mg PO BID PRN #20 tab 10/01/20 12/15/20 Unknown Rx risperidone 1 mg PO BID PRN 30 Days #60 tab 11/07/20 12/15/20 Unknown Rx bupropion HCl 100 mg tablet,12 hr 100 mg PO QAM #30 tab 11/17/20 12/15/20 Unknown Rx sustained-release divalproex 500 mg tablet,delayed 500 mg PO BID #60 tab 11/17/20 12/15/20 Unknown Rx release hydroxyzine pamoate 25 mg capsule 25 mg PO Q8H PRN 30 Days #90 cap 11/17/20 12/15/20 Unknown Rx risperidone 2 mg tablet 2 mg PO BID #60 tab 12/10/20 12/15/20 Unknown Rx levothyroxine 100 mcg PO DAILY 12/15/20 12/15/20 Unknown History metoprolol succinate 25 mg PO DAILY 12/15/20 12/15/20 Unknown History Allergies Allergy/AdvReac Type Severity Reaction Status Date / Time chlorpromazine Allergy Severe ALGY-Anaphy Verified 12/10/20 10:15 laxis haloperidol [From Haldol] Allergy Severe ALGY-Swell Verified 12/10/20 10:15 Lip/Tongue/Throat lurasidone [From Latuda] Allergy Severe ALGY-Swell Verified 12/10/20 10:15 Lip/Tongue/Throat olanzapine [From Zyprexa] Allergy Severe ALGY-Swell Verified 12/10/20 10:15 Lip/Tongue/Throat PFSH NPU PFSH: Medical History (Updated 12/16/20 @ 07:46 by Troy Stevens MD) Depressive disorder Hallucination Schizoaffective disorder, depressive type Family History (Updated 11/30/20 @ 11:09 by Jessica Parsons RN) Other Diabetes Hypertension Social History (Updated 12/01/20 @ 09:11 by Jessica Parsons RN) Smoking and tobacco status: former smoker Quit status (tobacco): has quit using tobacco Year quit tobacco: 10/21/2020 Former quit date comment: patient had been smoking for 10 years Second hand smoke exposure: Yes Alcohol intake: never Adopted: No Caregiver/support person: Yes Lives independently: No (Staying at [facility]) Household members: other Details: Multiple other residents at the facility. 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 Current occupational exposures/hazards: No Pets and animals: Yes Pets & animals: cat(s) History of recent travel: Yes (Just moved here from [place] in March.) Out of state: Yes Out of country: No Leisure activites: exercise, music, games and other Leisure activities details: watch TV Sexually active: No Current gender identity: Male Paola/Adventism: None Special paola needs: No Agree to transfusion: Yes Financial difficulty paying for basics: Not Very Hard Mental Status Exam MSE Comments: This is an obese white male who presents in hospital scrubs with limited grooming and adequate eye contact. No abnormal movements except for significant psychomotor retardation and stiffness. Cooperative with exam in mild distress. Speech was decreased rate and volume. Mood described as frustrated, affect subdued. Thought process mostly organized, thought content: Suicidal ideation, there are no delusions reported or noted, he denies any auditory or visual hallucinations. Attention and concentration appeared intact and memory appeared reliable but never formally tested. He is alert and oriented x3. Insight and judgment appear fair, impulse control appears fair. Vitals/I&O/Wt Last Vital Signs Temp 97.2 F L 12/15/20 21:26 Pulse 100 12/15/20 21:26 Resp 18 12/15/20 21:26 BP 140/88 12/15/20 21:26 Pulse Ox 96 12/15/20 21:26 Weight last 48 hrs Weight 99.79 kg Data NPU : 12/14/20 23:50 12/14/20 23:50 A&P Assessment and plan (1) Suicidal ideation: Status: Acute (2) Schizoaffective disorder, depressive type: Status: Chronic (3) Adverse drug reaction: Status: Acute Additional A&P Information This is a 30-year-old white male with a history of schizoaffective disorder who presents with an adverse drug reaction from an increase in Risperdal that was not tolerated by his system who presents with some suicidal thoughts secondary to how poorly he has felt. 1. Continue current medication. 2. Continue every 15 minute checks for safety. 3. Encourage individual, group and milieu therapies. 4. Encourage sober living treatment after discharge at the highest level of care to which he is willing to commit. Involuntary Hold Information 96 Hour Hold: 96 Hour Involuntary Admission: No Attestations NPU Medical Necessity Statement*: Inpatient hospitalization is medically necessary and the clinically appropriate intervention at this time. We will monitor medications and make changes as indicated. Patient will be in the hospital for over two midnights. Likely length of stay 3 to 5 days. Coding Level of Care Code Acute Brake Drum Molder for Renay Stepan Diagnoses Suicidal ideation R45.851 Schizoaffective disorder, depressive type F25.1 Adverse drug reaction T50.935D
[2020-12-15 21:26] VITALS: BP 140/88; PULSE 100; RESP 18; TEMP 36.2; O2SAT 96
[2020-12-15] MEDS: benztropine 1 mg Tablet PO (22:31)
[2020-12-15] MEDS: risperiDONE 2 mg Tablet PO (22:31)
--- NOTE | 2020-12-16 04:24 | PC.NURSE ---
Behavior Zombie like behavior, walks like he is in a fog, responses verbally delayed. Seems overmedicated
[2020-12-16 06:00] VITALS: BP 135/82; PULSE 94; RESP 16; TEMP 36.9; O2SAT 98
[2020-12-16] MEDS: buPROPion SR (12 HR) 100 mg Tablet PO (09:43)
[2020-12-16] MEDS: benztropine 1 mg Tablet PO ×2 (09:43→17:13)
[2020-12-16] MEDS: divalproex DR 500 mg Tablet PO ×2 (09:44→17:12)
[2020-12-16] MEDS: levothyroxine 100 mcg Tablet PO (09:44)
[2020-12-16] MEDS: metoprolol succinate ER (24 HR) 25 mg Tablet PO (09:45)
[2020-12-16] MEDS: risperiDONE 2 mg Tablet PO ×2 (09:45→17:13)
[2020-12-16] MEDS: lisinopril 10 mg Tablet PO (09:45)
--- NOTE | 2020-12-16 10:52 | PC.SOCIAL ---
IMM Update Updated patient about their medicare rights. Verbalized understanding. Gave pt a copy and placed initialed, timed and date copy in chart.
[2020-12-16 14:00] VITALS: BP 119/76; PULSE 99; RESP 18; TEMP 36.6; O2SAT 95
[2020-12-16] MEDS: acetaminophen 325 mg Tablet 650 MG PO (15:33)
--- NOTE | 2020-12-16 16:02 | P.PN_ITS ---
Subjective NPU Subjective: Interval history: Real presents today reporting that he is feeling significantly better in relation to his EPS. He reports that the different changes that have been made to allow him to feel much less stiff. He reports that he is eating and sleeping okay he denies any other issues. Mental Status Exam MSE Comments: This is an obese white male who presents in hospital scrubs with limited grooming and adequate eye contact. No abnormal movements except for less psychomotor retardation and stiffness. Cooperative with exam in no acute distress. Speech was decreased rate and volume. Mood described as a little better, affect subdued. Thought process mostly organized, thought content: Suicidal ideation, there are no delusions reported or noted, he denies any audit ory or visual hallucinations. Attention and concentration appeared intact and memory appeared reliable but never formally tested. He is alert and oriented x3. Insight and judgment appear fair, impulse control appears fair. Vitals/I&O/Wt Last Vital Signs Temp 97.9 F 12/16/20 14:00 Pulse 99 12/16/20 14:00 Resp 18 12/16/20 14:00 BP 119/76 12/16/20 14:00 Pulse Ox 95 12/16/20 14:00 Weight last 48 hrs Weight 99.79 kg Data NPU : 12/14/20 23:50 12/14/20 23:50 A&P Additional A&P Information (1) Suicidal ideation: (2) Schizoaffective disorder, depressive type: (3) Adverse drug reaction: This is a 30-year-old white male with a history of schizoaffective disorder who presents with an adverse drug reaction from an increase in Risperdal that was not tolerated by his system who presents with some suicidal thoughts secondary to how poorly he has felt. 1. Continue current medication. 2. Continue every 15 minute checks for safety. 3. Encourage individual, group and milieu therapies. 4. Encourage sober living treatment after discharge at the highest level of care to which he is willing to commit. Involuntary Hold Information 96 Hour Hold: 96 Hour Involuntary Admission: No Attestations NPU Medical Necessity Statement*: Inpatient hospitalization is medically necessary and the clinically appropriate intervention at this time. We will monitor medications and make changes as indicated. Likely length of stay 2-4 days. Coding Level of Care Code Acute Fibre Composite Technician for Keny Ying
[2020-12-16 20:22] VITALS: BP 114/79; PULSE 112; RESP 21; TEMP 36.4; O2SAT 95
[2020-12-17 06:00] VITALS: BP 115/80; PULSE 103; RESP 18; TEMP 37; O2SAT 96
[2020-12-17] MEDS: buPROPion SR (12 HR) 100 mg Tablet PO (07:47)
[2020-12-17] MEDS: risperiDONE 2 mg Tablet PO (07:47)
[2020-12-17] MEDS: lisinopril 10 mg Tablet PO (07:48)
[2020-12-17] MEDS: levothyroxine 100 mcg Tablet PO (07:48)
[2020-12-17] MEDS: benztropine 1 mg Tablet PO (07:48)
[2020-12-17] MEDS: metoprolol succinate ER (24 HR) 25 mg Tablet PO (07:48)
[2020-12-17] MEDS: divalproex DR 500 mg Tablet PO (07:48)
--- NOTE | 2020-12-17 11:06 | PM.NDC ---
Diagnoses at Discharge Discharge Diagnosis (1) Suicidal ideation: Status: Resolved (2) Schizoaffective disorder, depressive type: Status: Chronic (3) Adverse drug reaction: Status: Resolved (4) Adverse drug reaction: Status: Acute Reason for Visit Reason for Visit: SI Brief History: History of Present Illness Real Black is a 30 year old male who presented to the emergency department with the following report: Chief Complaint: Psychiatric Symptoms Stated Complaint: SI Time Seen by Provider: 12/14/20 23:40 Source: patient Mode of arrival: ambulatory Limitations: no limitations History of Present Illness: HPI Narrative: Patient is a 30-year-old male who presents to ED today with a complaint of auditory hallucinations and suicidal ideations. Patient tells me he was at [facility] last month for hallucinations and states they adjusted some of his medications. He feels like the hallucinations are slightly improved but are still telling him to harm himself. He has no specific plan to kill himself. He does have a previous suicide attempt years ago . He is not homicidal. He is not having any visual hallucinations. He denies drug or alcohol use. MD complaint: suicidal ideation and other (Auditory hallucinations) Duration: constant History of same: Yes Context: new medication(s) Associated psychiatric symptoms: depression, suicidal ideation and auditory hallucinations Associated symptoms: Reports auditory hallucinations, depression and suicidal ideation; Deny visual hallucinations or homicidal ideation Treatments prior to arrival: none If self harm: admits thoughts of self harm. He was admitted to the neuropsychiatric unit for definitive treatment of those issues. Patient presents today reporting that he was really struggling with side effects to the medication and was thought that Seroquel was the culprit. He reports that the Seroquel was discontinued and the Risperdal which was started at 1 mg twice a day at his October hospitalization here by this engineering writer was ultimately increased to 8 mg daily in divided doses. Over the time since those changes he has had significant EPS with cognitive slowing, stiffness, feeling like he cannot speak like his tongue is full and has felt fairly bad. And a response to this in his interactions with his outside providers but just cut his Risperdal in half taking away the previous nighttime dose of 4 mg. He is now on 2 mg twice a day. We discussed the risk benefits and alternatives of making sure he was getting Cogentin with his Risperdal and he reports that he has had success with Cogentin and he understood agreed to proceed as documented in his note. He denies substantive changes otherwise and an excerpt from his 11/05/2020 hospitalization is included below for context. Per his 11/05/2020 [facility] inpatient psychiatric evaluation: History of Present Illness Real Black is a 30 year old male who presented to the emergency department with the following report: Chief Complaint: Psychiatric Symptoms Stated Complaint: SI Time Seen by Provider: 11/04/20 21:31 History of Present Illness: HPI Narrative: This patient is a 30-year-old male who presents to the emergency department with complaint of hearing voices and suicidal ideation. Patient states the voices in his head is getting louder and continually telling to harm himself. Patient does have a history of suicidal ideation and attempt in the past and has been admitted for the same. Patient states he has a long history of hearing voices but seem getting worse now. Patient does have a history of schizoaffective disorder with panic swings. Will do medical evaluation treat as needed. Patient is requesting to be admitted because he is concerned that he will not be able to hold visits. Duration: constant, changing over time and getting worse History of same: Yes Relieving factors: none Exacerbating factors: none Associated symptoms: Reports auditory hallucinations and suicidal ideation; Deny depression. He was admitted to the neuropsychiatric unit for definitive treatment of those issues. Seizure presents today in his fifth hospitalization this year all under Dr. Castorena prior endorsing that he [facility] and that the reason why he came in was because his voices have gotten worse. And he cannot manage it. He was able to identify having a Wellbutrin and Depakote. We reviewed his medications and what he had issues with in the past. And so mainly he is tried most things and had an issue with Zyprexa. We did identify that Risperdal had some positive results he believes. We discussed the risk-benefit and alternatives of restarting Risperdal 1 mg twice a day and he understood agreed proceed as documented in this note. We reviewed his records and identified his 07/07/2020 outpatient evaluation from [facility] as being a comprehensive exploration of his history and excerpt is included below. Per his 07/07/2020 [facility] outpatient psychiatric evaluation: [facility] History and Physical Time In: 13:56 Time Out: 14:57 Chief Complaint: here for therapy and medications History of Present Illness: Information retrieved and edited from [facility] Comp. Clinical Assessment completed on: 05/26/20: anxiety and nervousness, wants therapy and medication management; moved here from [place]. Currently living at [facility], since 04/29/20. 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 He has moved several times back and forth from [place] to [place]. He is hoping his father will retire and his parents will move to [place]; they have a farm in [place]. Real had services with [facility] in 2015. Says he was inpatient due to his voices getting bad and he was suicidal. He says his current diagnosis are bipolar and now he is diagnosed with schizoaffective disorder; he is currently on medications. He is not aware if anyone in his family has bipolar or schizophrenia. He has had suicidal thoughts, chronic in nature. He tried to end his life in 2012 by hanging, reports the rope broke; previously held scissors to his throat; a cousin called him and that is what stopped him from doing it. He lived at [facility](assisted living facility in [place]) for four years, then moved to his Mom's friend's home in [place], [place]. Says he was referred to [facility] by friends of the [place]. Reported symptoms difficulty concentrating, thoughts hard to dismiss, annoyed and irritable, nervous feeling, worries and fears. Reported symptoms difficulty concentrating, thoughts hard to dismiss, annoyed and irritable, nervous feeling, worries and fears. Denied fatigue, pains, headache, or digestive problems. Current habits: Drinks 3 large glasses of tea per day; sometimes drinks 2 cups of coffee in the morning and 3 sodas during the day. Currently reports he sleeps from about midnight or 1 AM up until about 8 or 9 AM; usually obtains about 5 to 6 hours of rest during that time. He rarely takes a nap in the day. Sometimes skips breakfast, and usually eats lunch or dinner. He tries to walk 2 or 3 times per week (up to 1 and half to 2 miles at a time) for physical exercise. History Past Psychiatric History: Information retrieved and edited from [facility] Comp. Clinical Assessment completed on: 05/26/20: Real had services with [facility] in 2016; dx were: F25.1 Schizoaffective DO, Depressed Type; F15.20 Methamphetamine Use Disorder; he [facility]; refer to chart. Most recent inpatient hospitalization was from 06/12/20 to 06/15/20;included suicidal ideation; depressive disorder; and schizoaffective disorder. Real says hospitalization was due to his voices getting bad and he felt suicidal. History of chronic suicidal thoughts with a history of suicide gesture/attempt including: He tried to end his life in 2012 by hanging; the rope broke, he had scissors held to his throat; says a cousin called him and that is what stopped him from doing it. Real says every now and then his voices act up. He says he has one unrecognized male voice which tells him to do bad stuff to himself, but not to anyone else. Usually has increased depression and anxiety in the afternoon, usually from 2 PM to 5 PM. Reports he can a good day, and then out of the blue he doesn?t feel like doing anything; he feels worthless and down in the dumps for no reason; he says every now and then something may trigger it. He has anger problems and when he gets mad at himself, he has hurt himself in the past; hx of cutting; last time he cut himself was in 2018. He used a knife; was cutting his wrist, but hasn't cut deeply enough to be in the hospital. He expressed inability to concentrate, difficulty completing tasks, delayed responses during conversations. Says he had ADHD as a child; reported that he attended special classes, and took Concerta, Ritalin, and Adderall. Says the medication was beneficial at school, but usually wore off by the time he got home. Says he is able to control ADHD symptoms as an adult. Family History: Information retrieved and edited from [facility] Comp. Clinical Assessment completed on: 05/26/20 Family Psychiatric History: Anxiety and Depression History of Suicide in the Family: No Family history of substance abuse: Alcohol (father) Past Medical History: Information retrieved and edited from [facility] Comp. Clinical Assessment completed on: 05/26/20 Primary Care Provider: Yes (Dr. Flowers); last physical exam: Within past year (05.07.20) Client's Medical History: No major medical illness Surgical Procedure: Tonsillectomy; history of foot fracture Substance Use History: Information retrieved and edited from [facility] Comp. Clinical Assessment completed on: 05/26/20 Client history of substance abuse: Alcohol (yes) Age of onset (years): 13 Pattern of use: denied current use and has not used in 3 years; Cannabis (yes) Age of onset (years): 19 Pattern of use: denied current use; has not used in 3 years ; Amphetamine (yes) Age of onset (years): 21 Pattern of use: (previous snorting and smoking it );denied current use; has not used in 3 years; Nicotine (yes) Age of onset (years): 19 Pattern of use: current use: 1 ppd Client?s drug and/or alcohol use in the last 30 days: No Social History: Information retrieved and edited from [facility] Comp. Clinical Assessment completed on: 05/26/20 Childhood history: Real was born in [place]; at age [age], his parents moved near [place], [place]. When he was in 5th grade, he moved to [place]. He graduated high school, then moved to [place], [place]. He says he has a good childhood; his parents were in the home growing up and are still together. He is an only child. He is single; has no children. 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 History: Client denies service Abilities/Interests: tries to stay busy, likes to help others; he loves being outside; listens to music Legal Status/History: Current legal issues denied; denies previous arrests incarceration. Spiritual Pursuits: Other (he prays) Highest Education Level Reached: college (12th grade; reports he had ADHD in school and was on meds.) Academic Performance: Performance at grade level Hospital Course Hospital Course He quickly acclimated to the individual, group and milieu therapies provided. He was given Cogentin for his clear EPS and his Risperdal had already been decreased prior to admission. The combination of the 50% reduction in the Risperdal and the availability of Cogentin for the side effects he demonstrated marked improvement. He was able to contract for safety prior to discharge. During the hospitalization, patient had routine laboratory studies which were within normal limits except for few outliers. Additionally there was a general medical evaluation which was also within normal limits and revealed no new acute processes. Discharge Summary: At the time of discharge, lethality was denied and psychosis was resolving. Mood and anxiety were well managed. Patient endorsed a plan to follow-up with the aftercare recommendations of the treatment team. Patient was evaluated and deemed to be absent credible lethality, and had achieved the maximum benefit from an inpatient hospitalization, so was discharged. Involuntary Hold Information 96 Hour Hold: 96 Hour Involuntary Admission: No Mental Status Exam MSE Comments: This is an obese white male who presents in hospital scrubs with limited grooming and adequate eye contact. No abnormal movements except for less psychomotor retardation and stiffness. Cooperative with exam in no acute distress. Speech was decreased rate and volume. Mood described as better, affect subdued. Thought process mostly organized, thought content: Suicidal ideation, there are no delusions reported or noted, he denies any auditory or visual hallucinations. Attention and concentration appeared intact and memory appeared reliable but never formally tested. He is alert and oriented x3. Insight and judgment appear fair, impulse control appears fair. Discharge Data Vitals: Last Vital Signs Temp 98.6 F 12/17/20 06:00 Pulse 103 H 12/17/20 06:00 Resp 18 12/17/20 06:00 BP 115/80 12/17/20 06:00 Pulse Ox 96 12/17/20 06:00 Discharge Plan Discharge Patient Disposition: Home Condition: Stable Prescriptions: Continued acetaminophen [Tylenol Extra Strength] 500 mg tablet 1,000 mg PO Q6H PRN (Reason: Pain) RF: 0 bupropion HCl 100 mg tablet sustained-release 12 hr 100 mg PO QAM Qty: 30 RF: 1 Depakote 500 mg tablet,delayed release (DR/EC) 500 mg PO BID Qty: 60 RF: 1 hydroxyzine pamoate 25 mg capsule 25 mg PO Q8H PRN (Reason: Anxiety) 30 Days Qty: 90 RF: 1 lisinopril 10 mg Tablet 10 mg PO DAILY RF: 0 ibuprofen 800 mg tablet 800 mg PO Q8H PRN (Reason: pain) Qty: 20 RF: 0 naproxen [Naprosyn] 500 mg tablet 500 mg PO BID PRN (Reason: pain) Qty: 20 RF: 0 levothyroxine 100 mcg tablet 100 mcg PO DAILY RF: 0 metoprolol succinate 25 mg tablet extended release 24 hr 25 mg PO DAILY RF: 0 Discontinued risperidone 1 mg tablet,disintegrating 1 mg PO BID PRN (Reason: psychosis) 30 Days Qty: 60 RF: 1 No Action omeprazole 20 mg capsule,delayed release(DR/EC) 20 mg PO DAILY RF: 0 risperidone 1 mg tablet 1 mg PO BID Qty: 60 RF: 0 Discharge Orders: Discharge Order (Routine); Ordered 12/17/20 Ordered By: Troy Stevens Referrals: Mary Baires MA, [facility] [Truck Terminal Manager] - 12/21/20 1:45 pm (Therapy appointment with Mary Baires on 12/21/20 at 1:45pm) Patria Mckinney APRN [Nurse Practitioner] - 12/29/20 10:45 am (Medication appointment with Sheryl Rosas on 12/29/20 @ 11:00am, check in at 10:45am) Sp Flowers MD [Primary Care Provider] - 12/25/20 10:00 am (Dr Flowers will see you on 12/25/20 at [facility]. ) Discharge Diet: Regular Discharge Activity: Resume usual activity Patient Instructions: Generalized Anxiety Disorder (DC), Opioid Safety Discharge Attestations [facility] Time Spent in Discharge Care*: less than 30 min Specific Discharge Activities: Specific discharge activities: educating patient, discussing with caser in/social workers/dc planners, documenting/other paperwork and evaluating patient/reviewing data Status at Discharge: Cognitive status at discharge: cognitively intact, Behavioral status at discharge: cooperative, Coding Level of Care Code Acute Chg FW DC note Diagnoses Suicidal ideation R45.851 Schizoaffective disorder, depressive type F25.1 Adverse drug reaction T50.905A Adverse drug reaction T50.905A
[2020-12-17 11:16] VITALS: BP 115/80; PULSE 103; RESP 18; TEMP 37; O2SAT 96
== END 2020-12-17 12:04 | disposition home or self-care (01) | DRG 880 ==
LOC: ER 12-15 00:58 → NP 12-15 02:43
PROVIDERS: Emergency Medicine; Admitting Provider Psychiatry & Neurology Psychiatry; Emergency Provider Physician Assistant; PCP Family Medicine; Visit Provider Psychiatry & Neurology Psychiatry
DX: R44.0 Auditory hallucinations (principal); R45.851 Suicidal ideations; T43.595A Adverse effect of other antipsychotics and neuroleptics, initial encounter; F25.1 Schizoaffective disorder, depressive type; Z87.891 Personal history of nicotine dependence
CPT/HCPCS: 80053; 80306; 80307; 81003; 84439; 84443; 85025; 99285

== ENCOUNTER → 2020-12-29 10:43 | Outpatient (BNVA) | payer MEDICARE, MEDICAID, SELFPAY ==
[2020-12-11 11:23] VITALS: BP 133/83; BMI 32.1
== END ==
PROVIDERS: PCP Family Medicine; Visit Provider Nurse Practitioner Psychiatric/Mental Health
DX: F25.1 Schizoaffective disorder, depressive type (principal)
CPT/HCPCS: 99214

== ENCOUNTER 2021-01-20 13:18 | Outpatient (RCR) | payer MEDICARE, MEDICAID, SELFPAY ==
[2020-12-11 11:23] VITALS: BP 133/83; BMI 32.1
== END 2021-01-21 23:59 | disposition home or self-care (01) ==
LOC: SPT 13:18
PROVIDERS: PCP Family Medicine; Referring Provider Family Medicine; Visit Provider Family Medicine
DX: M54.5 Low back pain (principal)
CPT/HCPCS: 97161

== ENCOUNTER 2021-01-22 06:00 | Outpatient (RCR) | payer MEDICARE, MEDICAID, SELFPAY ==
[2020-12-11 11:23] VITALS: BP 133/83; BMI 32.1
== END 2021-02-21 23:59 | disposition home or self-care (01) ==
LOC: SPT 06:00
PROVIDERS: PCP Family Medicine; Referring Provider Family Medicine; Visit Provider Family Medicine
DX: G89.29 Other chronic pain (principal); M54.50 Low back pain, unspecified
CPT/HCPCS: 97032; 97110

== ENCOUNTER → 2021-01-26 10:25 | Outpatient (BNVA) | payer MEDICARE, MEDICAID, SELFPAY ==
[2020-12-11 11:23] VITALS: BP 133/83; BMI 32.1
== END ==
PROVIDERS: PCP Family Medicine; Visit Provider Nurse Practitioner Psychiatric/Mental Health
DX: F20.0 Paranoid schizophrenia (principal)
CPT/HCPCS: 99213

== ENCOUNTER 2021-01-31 12:33 | Emergency (ER) | payer MEDICARE, MEDICAID, SELFPAY ==
[2020-12-11 11:23] VITALS: BP 133/83; BMI 32.1
[2021-01-31 12:36] VITALS: BP 133/84; PULSE 83; RESP 16; TEMP 36.4; O2SAT 97; BMI 32.5
--- NOTE | 2021-01-31 13:05 | W.ED.PSYCH ---
HPI - Psych General: Chief Complaint: Psychiatric Symptoms Stated Complaint: SI/VOICES IN HEAD ARE TELLING HIM TO KILL HIMSELF Time Seen by Provider: 01/31/21 12:45 Source: patient Mode of arrival: ambulatory Limitations: no limitations History of Present Illness: HPI Narrative: 30-year-old male has history of schizophrenia states he has been having increased hearing voices. He states that these voices been telling him to hurt himself and he started to have concerns that he is actually going to hurt himself. He has no specific suicidal plan but states he has been having thoughts of suicide with these voices. Denies any worsening improving factors. Associated symptoms: Reports auditory hallucinations, depression and suicidal ideation Review of Systems Psych: Reports: depression, auditory hallucinations and suicidal ideation PFSH ED PFSH: Medical History Depressive disorder Hallucination Psychiatric care Schizoaffective disorder, depressive type Family History Other Diabetes Hypertension Social History Smoking and tobacco status: former smoker Quit status (tobacco): has quit using tobacco Year quit tobacco: 10/21/2020 Former quit date comment: patient had been smoking for 10 years Second hand smoke exposure: Yes Alcohol intake: never Adopted: No Caregiver/support person: Yes Lives independently: No (Staying at [facility]) Household members: other Details: Multiple other residents at the facility. 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 Current occupational exposures/hazards: No Pets and animals: Yes Pets & animals: cat(s) History of recent travel: Yes (Just moved here from [place] in March.) Out of state: Yes Out of country: No Leisure activites: exercise, music, games and other Leisure activities details: watch TV Sexually active: No Current gender identity: Male Paola/Mandaeism: None Special paola needs: No Agree to transfusion: Yes Financial difficulty paying for basics: Not Very Hard Physical Exam Const: COMMON NORMALS: no acute distress, patient oriented x3 and healthy appearing HENMT: COMMON NORMALS: normocephalic and atraumatic HEAD & SCALP: normocephalic and atraumatic Eye: COMMON NORMALS: Equal, round and reactive pupils present and EOMs intact bilaterally PUPIL: Yes Equal, round and reactive pupils present Neck/C-Spine: COMMON NORMALS: full ROM and supple Chest: COMMONS NORMALS: normal inspection of the chest and normal palpation of entire chest wall Resp: COMMON NORMALS: normal respiratory effort, No retractions, No use of accessory muscles and clear to auscultation bilaterally AUSCULTATION: clear to auscultation bilaterally Cardio: COMMON NORMALS: regular rate, regular rhythm and No murmurs present (Cardio) RATE: regular rate RHYTHM: regular rhythm GI: COMMON NORMALS: Normal to inspection, nondistended, normoactive bowel sounds present, Soft to palpation, non-tender and no masses PALPATION: Yes Soft to palpation Extremity: COMMON NORMALS: normal to inspection and full ROM Neuro: COMMON NORMALS: patient oriented x3, moves all extremities and no focal motor deficits Psych: COMMON NORMALS: mental status grossly normal, Normal thought process present and cooperative THOUGHT PROCESS: Normal thought process present THOUGHT CONTENT: Yes Suicidality present and Yes Hallucination(s) present Skin: COMMON NORMALS: no rashes or lesions noted and no wounds GENERAL SKIN EXAM: no rashes or lesions noted Course Vital Signs: Vital signs: Vital Signs Temperature 97.6 F 01/31/21 12:36 Pulse Rate 83 01/31/21 12:36 Respiratory Rate 16 01/31/21 12:36 Blood Pressure 133/84 01/31/21 12:36 Pulse Oximetry 97 01/31/21 12:36 MDM - Psych MDM Narrative: Medical decision making narrative: Patient presents here with hallucinations along with suicidal ideation patient is medically cleared I spoke to psychiatrist who will admit. Lab Data: Labs: Lab Results 01/31/21 01/31/21 01/31/21 12:56 14:08 14:08 WBC 5.8 10^3/uL 10^3/ uL (4.0-10.0) RBC 4.56 10^6/uL 10^6 /uL (4.1-5.3) Hgb 14.2 g/dL g/dL (11.7-16.6) Hct 42.0 % % (42.0-52.0) MCV 92.1 fl fl (80-94) MCH 31.1 pg pg (28.0-34.0) MCHC 33.8 g/dL g/dL (30.0-36.0) RDW 12.4 % % (12.1-15.1) Plt Count 217 10^3/cmm 10^3 /cmm (130-400) MPV 10.3 fL fL (7.4-10.4) Neut % (Auto) 54.8 % % Lymph % (Auto) 37.8 % % Castro % (Auto) 4.5 % % Eos % (Auto) 2.3 % % Baso % (Auto) 0.3 % % Neut # (Auto) 3.16 10^3/uL 10^3 /uL (1.8-7.7) Lymph # (Auto) 2.2 10^3/uL 10^3/ uL (0.8-4.8) Castro # (Auto) 0.3 10^3/uL 10^3/ uL (0.2-0.9) Eos # (Auto) 0.1 10^3/uL 10^3/ uL (0.0-0.8) Baso # (Auto) 0.0 10^3/uL 10^3/ uL (0.0-0.1) Nucleated RBC % (a uto) 0 % % Nucleated RBCs # 0.0 /100WBC /100W BC Sodium 136 mmol/L mmol/L (136-145) Potassium 4.2 mmol/L mmol/L (3.5-5.1) Chloride 103 mmol/L mmol/L (98-107) Carbon Dioxide 22 mmol/L mmol/L (22-29) Anion Gap 15.2 (5-19) BUN 19 mg/dL mg/dL (6-20) Creatinine 0.6 mg/dL L mg/dL (0.7-1.2) GFR Calculation 159.3 mL/min H mL /min (90-130) Glucose 103 mg/dL mg/dL (65-115) Calculated Osmolal ity 285 mOsm/kg mOsm/ kg (285-295) Calcium 8.9 mg/dL mg/dL (8.5-10.5) Total Bilirubin 0.3 mg/dL mg/dL (0.15-1.2) AST 17 U/L U/L (0-40) ALT 24 U/L U/L (0-41) Alkaline Phosphata se 29 IU/L L IU/L (40-130) Total Protein 7.1 g/dL g/dL (6.6-8.7) Albumin 4.4 g/dL g/dL (3.5-5.2) Globulin 2.7 g/dL g/dL (1.3-4.6) TSH 1.86 uIU/mL uIU/m L (0.27-4.20) Salicylates < 0.3 mg/dL L mg/ dL (3-10) Urine Opiates Scre en Negative ng/mL ng /mL (Negative) Acetaminophen < 5.0 ug/mL L ug/ mL (10-30) Ur Barbiturates Sc reen Negative ng/mL ng /mL (Negative) Ur Phencyclidine S crn Negative ng/mL ng /mL (Negative) Ur Amphetamines Sc reen Negative ng/mL ng /mL (Negative) U Benzodiazepines Scrn Negative ng/mL ng /mL (Negative) Urine Cocaine Scre en Negative ng/mL ng /mL (Negative) U Marijuana (THC) Screen Negative ng/mL ng /mL (Negative) Ethyl Alcohol < 10 mg/dL mg/dL (0-10) Discharge Plan Discharge Prescriptions: No Action omeprazole 20 mg capsule,delayed release(DR/EC) 20 mg PO DAILY RF: 0 risperidone 1 mg tablet 1 mg PO BID Qty: 60 RF: 2 risperidone 1 mg tablet,disintegrating 1 mg PO BID PRN (Reason: psychosis) 30 Days Qty: 60 RF: 2 acetaminophen [Tylenol Extra Strength] 500 mg tablet 1,000 mg PO Q6H PRN (Reason: Pain) RF: 0 Depakote 500 mg tablet,delayed release (DR/EC) 500 mg PO BID Qty: 60 RF: 1 bupropion HCl 100 mg tablet sustained-release 12 hr 100 mg PO QAM Qty: 30 RF: 1 hydroxyzine pamoate 25 mg capsule 25 mg PO Q8H PRN (Reason: Anxiety) 30 Days Qty: 90 RF: 1 lisinopril 10 mg Tablet 10 mg PO DAILY RF: 0 ibuprofen 800 mg tablet 800 mg PO Q8H PRN (Reason: pain) Qty: 20 RF: 0 naproxen [Naprosyn] 500 mg tablet 500 mg PO BID PRN (Reason: pain) Qty: 20 RF: 0 levothyroxine 100 mcg tablet 100 mcg PO DAILY RF: 0 metoprolol succinate 25 mg tablet extended release 24 hr 25 mg PO DAILY RF: 0 Coding Level of Care Code ED Car Escort for Chg Fwd Exam Comprehensive
[2021-01-31 13:25] LABS: Amphetamines Screen Urine Negative (Negative); Barbiturates Screen Urine Negative (Negative); Benzodiazepines Screen Urine Negative (Negative); Cocaine Screen Urine Negative (Negative); Opiate Screen Urine Negative (Negative); PCP Screen Urine Negative (Negative); THC Screen Urine Negative (Negative)
[2021-01-31 14:14] LABS: Basophils % 0.3 %; Eosinophils # 0.1 10^3/uL (0.0-0.8); Eosinophils % 2.3 %; Hemoglobin 14.2 g/dL (11.7-16.6); Lymphocytes # 2.2 10^3/uL (0.8-4.8); Lymphocytes % 37.8 %; Mean Corpuscular HGB Conc 33.8 g/dL (30.0-36.0); Mean Corpuscular Hemoglobin 31.1 pg (28.0-34.0); Mean Corpuscular Volume 92.1 fl (80-94); Mean Platelet Volume 10.3 fL (7.4-10.4); Monocytes # 0.3 10^3/uL (0.2-0.9); Monocytes % 4.5 %; Neutrophils # 3.16 10^3/uL (1.8-7.7); Neutrophils % 54.8 %; Nucleated Red Blood Cells % 0 %; Platelet Count 217 10^3/cmm (130-400); Red Blood Count 4.56 10^6/uL (4.1-5.3); Red Cell Distribution Width 12.4 % (12.1-15.1); White Blood Count 5.8 10^3/uL (4.0-10.0)
[2021-01-31 15:01] LABS: Alanine Aminotransferase 24 U/L (0-41); Albumin Level 4.4 g/dL (3.5-5.2); Alkaline Phosphatase 29 IU/L (40-130); Aspartate Amino Transferase 17 U/L (0-40); Blood Urea Nitrogen 19 mg/dL (6-20); Calcium 8.9 mg/dL (8.5-10.5); Carbon Dioxide 22 mmol/L (22-29); Chloride 103 mmol/L (98-107); Globulin 2.7 g/dL (1.3-4.6); Glomerular Filtration Rate 159.3 mL/min (90-130); Glucose 103 mg/dL (65-115); Osmolality Calculated 285 mOsm/kg (285-295); Sodium 136 mmol/L (136-145); Thyroid Stimulating Hormone 1.86 uIU/mL (0.27-4.20); Total Bilirubin 0.3 mg/dL (0.15-1.2); Total Protein 7.1 g/dL (6.6-8.7)
[2021-01-31 15:20] LABS: Acetaminophen < 5.0 ug/mL (10-30); Alcohol Level < 10 mg/dL (0-10); Salicylate < 0.3 mg/dL (3-10)
[2021-01-31 15:21] LABS: Anion Gap 15.2 (5-19); Potassium 4.2 mmol/L (3.5-5.1)
[2021-01-31] MEDS: LORazepam 2 mg Tablet PO ×2 (16:53→18:16)
[2021-01-31 19:26] LABS: SARS Covid-2 Antigen Negative (Negative)
--- NOTE | 2021-02-01 04:05 | ECG_ITS ---
[facility] Test Date: 2021-02-01 Pat Name: Real Black Department: Room: ED Gender: Male Assistant Pressman: : 1990 Requested By: Noel Ocasio Order Number: [id number] Omero MD: Angel Juares M.D. Measurements Intervals [place] Rate: 84 P: 38 LA: 169 QRS: 65 QRSD: 100 T: 61 QT: 366 QTc: 434 Interpretive Statements SINUS RHYTHM Compared to ECG 11/04/2020 21:41:57 Sinus tachycardia no longer present Electronically Signed On 02-01-2021 14:24:28 CDT by Angel Juares M.D. [email or web address] medical [id number]
[2021-02-01 04:53] LABS: Add Urine Microscopic? NO; Charge for UA Resulting for Rev
[2021-02-01 04:55] LABS: Bilirubin Urine Neg (Negative); Blood Urine Neg (Negative); Glucose Urine UA Norm (Normal); Ketones Urine Negative (Negative); Leukocyte Esterase Urine Negative (Negative); Nitrate Urine Negative (Negative); Protein Urine Neg (Negative); Urine Appearance Clear (CLEAR); Urine Color Yellow (Yellow); Urobilinogen Urine Norm (Negative); pH Urine 5 (5-7)
[2021-02-01 05:22] LABS: Valproic Acid Level 31.8 ug/mL (50-100)
[2021-02-01 07:00] VITALS: BP 130/78; PULSE 80; RESP 17; TEMP 36.6; O2SAT 97
--- NOTE | 2021-02-01 08:06 | PC.NURSE ---
Pt is sleeping in the room.
--- NOTE | 2021-02-01 08:15 | PC.NURSE ---
Called and gave report to Mami Emmanuel.
[2021-02-01 10:28] VITALS: BP 130/78; PULSE 80; RESP 17; TEMP 36.6; O2SAT 97
== END 2021-02-01 10:29 | disposition admitted as inpatient to this hospital (09) ==
LOC: ER 15:24 → ER IP 18:39
PROVIDERS: Emergency Medicine; Emergency Provider Emergency Medicine; PCP Family Medicine
DX: R45.851 Suicidal ideations (principal); R44.0 Auditory hallucinations; Z87.891 Personal history of nicotine dependence; Z20.822 Contact with and (suspected) exposure to COVID-19
CPT/HCPCS: 36415; 80053; 80164; 80306; 80307; 81003; 84443; 85025; 87426; 93005; 99285

== ENCOUNTER 2021-03-08 23:22 | Inpatient (IN) | payer MEDICARE, MEDICAID, SELFPAY ==
[2020-12-11 11:23] VITALS: BP 133/83; BMI 32.1
--- NOTE | 2021-03-08 23:32 | W.ED.GENADLT ---
HPI - General Adult General: Chief complaint: Psychiatric Symptoms Stated complaint: Hallucations SI Time Seen by Provider: 03/08/21 23:29 History of Present Illness: HPI narrative: HPI: [30]yo patient w/ hx of depression BIBA for suicidal ideation and hearing voices for On arrival, the patient is AAOx3 and cooperative with my evaluation. No focal complaints of chest pain, shortness of breath, palpitations, N/V, focal GI/ complaints. +SI for 10 hrs. Patient reports plans to hang himself. No complaints of hallucinations. Onset: chronic Duration: ongoing Location: home Severity: severe Review of Systems Narrative: Constitutional: No fever, no chills. HEENT: No vision changes CV: No chest pain, no palpitations PULM: No productive cough, no dyspnea. GI: No abdominal pain, no N/V/D. : No dysuria MSKEL: No muscle pain SKIN: No new rashes, no lesions. NEURO: No headache, no focal weakness. HEME: No visible bruises PSYCH: Normal mood, +SI PFSH ED PFSH: Medical History Depressive disorder Hallucination Psychiatric care Schizoaffective disorder, depressive type Family History Other Diabetes Hypertension Social History Smoking and tobacco status: former smoker Quit status (tobacco): has quit using tobacco Year quit tobacco: 10/21/2020 Former quit date comment: patient had been smoking for 10 years Second hand smoke exposure: Yes Alcohol intake: never Adopted: No Caregiver/support person: Yes Lives independently: No (Staying at [facility]) Household members: other Details: Multiple other residents at the facility. 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 Current occupational exposures/hazards: No Pets and animals: Yes Pets & animals: cat(s) History of recent travel: Yes (Just moved here from [place] in March.) Out of state: Yes Out of country: No Leisure activites: exercise, music, games and other Leisure activities details: watch TV Sexually active: No Current gender identity: Male Paola/Evangelical: None Special paola needs: No Agree to transfusion: Yes Financial difficulty paying for basics: Not Very Hard Physical Exam Narrative: EXAM NARRATIVE: Head: Atraumatic Eyes: PERRL, conjunctiva without injection, eyes tracking ENT: Mucous membrane moist NECK: Supple without lymphadenopathy LUNGS: LCTAB CV: RRR ABDOMEN: Soft, nontender EXTREMITY: Normal ROM SKIN: No rash or erythema NEURO: Awake and alert. No focal weakness PSYCH: Cooperative mood and affect. Course Vital Signs: Vital signs: Vital Signs Temperature 97.2 F L 03/08/21 23:37 Pulse Rate 113 H 03/08/21 23:37 Respiratory Rate 18 03/08/21 23:37 Blood Pressure 145/96 03/08/21 23:37 Pulse Oximetry 97 03/08/21 23:37 MDM - General Adult MDM Narrative: Medical decision making narrative: [30]yo patient w/ hx of depression and psychosis presenting for acute SI. HDS, exam within normal limit Thoughts are linear and organized, and the patient has auditory hallucination Clinically the patient displays no overt toxidrome; they are well appearing, with low suspicion for toxic ingestion given history and exam. Symptoms unlikely 2/2 anemia, hypothyroidism, infection, or ICH. Workup: CBC, CMP, Lipase, salicylate/tylenol, UDS Lab findings: wnl [12:30am] On reassessment, labs and workup wnl. Patient is hemodynamically stable with no acute medical complaints. Case discussed with psychiatric provider Dr. Stevens at [facility] psych inpatient with recommendation for admission Disposition: Psych Discharge Plan Discharge Patient Disposition: Admitted As Inpatient Clinical Impression: Hallucination, Suicide ideation Condition: Stable Coding Level of Care Code ED Portfolio Strategist for Keny Ying
[2021-03-08 23:37] VITALS: BP 145/96; PULSE 113; RESP 18; TEMP 36.2; O2SAT 97; BMI 32.5
[2021-03-08 23:52] LABS: Basophils % 0.4 %; Eosinophils # 0.1 10^3/uL (0.0-0.8); Eosinophils % 1.3 %; Hematocrit 43.6 % (42.0-52.0); Hemoglobin 15.4 g/dL (11.7-16.6); Lymphocytes # 4.3 10^3/uL (0.8-4.8); Lymphocytes % 46.8 %; Mean Corpuscular HGB Conc 35.3 g/dL (30.0-36.0); Mean Corpuscular Volume 87.9 fl (80-94); Mean Platelet Volume 9.7 fL (7.4-10.4); Monocytes # 0.4 10^3/uL (0.2-0.9); Monocytes % 4.6 %; Neutrophils # 4.23 10^3/uL (1.8-7.7); Neutrophils % 46.6 %; Nucleated Red Blood Cells % 0 %; Platelet Count 282 10^3/cmm (130-400); Red Blood Count 4.96 10^6/uL (4.1-5.3); Red Cell Distribution Width 12.4 % (12.1-15.1); White Blood Count 9.1 10^3/uL (4.0-10.0)
[2021-03-09 00:11] LABS: Anion Gap 19.8 (5-19); Blood Urea Nitrogen 18 mg/dL (6-20); Calcium 9.5 mg/dL (8.5-10.5); Carbon Dioxide 19 mmol/L (22-29); Chloride 100 mmol/L (98-107); Glomerular Filtration Rate 114.3 mL/min (90-130); Glucose 97 mg/dL (65-115); Osmolality Calculated 282 mOsm/kg (285-295); Potassium 3.8 mmol/L (3.5-5.1); Sodium 135 mmol/L (136-145)
[2021-03-09 00:13] LABS: Acetaminophen < 5.0 ug/mL (10-30); Salicylate < 0.3 mg/dL (3-10)
[2021-03-09 00:32] LABS: Slide Review Slide Review Perform
[2021-03-09 00:56] VITALS: BP 142/90; PULSE 78; RESP 16; O2SAT 97
[2021-03-09 01:37] VITALS: BP 130/82; PULSE 120; RESP 20; TEMP 37; O2SAT 98
--- NOTE | 2021-03-09 02:21 | PC.NURSE ---
Admission- 30 y/o patient w/ hx of depression BIBA for suicidal ideation and hearing voices. On arrival, the patient is AAOx3 and cooperative with my evaluation. No focal complaints of chest pain, shortness of breath, palpitations, N/V, focal GI/ complaints. +SI for 10 hrs. Patient reports plans to hang himself. No complaints of hallucinations. Upon arrival to unit, patient is calm and cooperative. Endorses SI with thought to cut throat but denies any intent to act. Patient contacted for safety at that time. Reports [facility]. AH are command in nature, telling patient to hurt self. States that depression has been higher than usual this past week due to his grandfather?s last Monday. Patient very tired at admit, falling asleep during questions, speech garbled at times due to lethargy. Patient unable to confirm current meds with nurse at admit due to lethargy. Patient requested that meds be confirmed with [facility] instead. Did report that he took all HS meds before admission. After admission assessments, patient went to bed. Resting with eyes closed at this time.
[2021-03-09 03:06] LABS: Amphetamines Screen Urine Negative (Negative); Barbiturates Screen Urine Negative (Negative); Benzodiazepines Screen Urine Negative (Negative); Cocaine Screen Urine Negative (Negative); Opiate Screen Urine Negative (Negative); PCP Screen Urine Negative (Negative); THC Screen Urine Negative (Negative)
[2021-03-09 06:00] VITALS: BP 120/79; PULSE 91; RESP 20; TEMP 36.5; O2SAT 94
[2021-03-09] MEDS: nicotine 2 mg Gum BUCCAL ×5 (07:44→20:24)
[2021-03-09] MEDS: acetaminophen 325 mg Tablet 650 MG PO (09:08)
[2021-03-09 14:00] VITALS: BP 129/92; PULSE 110; RESP 18; TEMP 36; O2SAT 97
[2021-03-09] MEDS: hyDROXYzine 25 mg Capsule 50 MG PO (15:00)
--- NOTE | 2021-03-09 15:00 | PC.NURSE ---
PRN VISTARIL 50 MG GIVEN PO PER PT C/O STATED ANXIETY. WILL CONT TO MONITOR
--- NOTE | 2021-03-09 16:24 | P.NPUHP_ITS ---
Providers/Chief Complaint Admitting Physician: Troy Stevens MD Primary Care Provider: Sp Flowers MD Chief Complaint: Hallucations SI HPI NPU History of Present Illness Real Black is a 30 year old male who presented to the emergency department with the following report: Chief complaint: Psychiatric Symptoms Stated complaint: Hallucations SI Time Seen by Provider: 03/08/21 23:29 History of Present Illness: HPI narrative: HPI: [30]yo patient w/ hx of depression BIBA for suicidal ideation and hearing voices for On arrival, the patient is AAOx3 and cooperative with my evaluation. No focal complaints of chest pain, shortness of breath, palpitations, N/V, focal GI/ complaints. +SI for 10 hrs. Patient reports plans to hang himself. No complaints of hallucinations. Onset: chronic Duration: ongoing Location: home Severity: severe. He was admitted to the neuropsychiatric unit for definitive treatment of those issues. He presented today reporting that he had been doing better and taking his medications but then his grandfather and it seemed that things have spiraled out of control. He went to the and it seems like after that things went downhill he started experiencing more auditory hallucinations and everything just became too overwhelming for him and his as an outpatient. He reports that he is prediabetic and he wants to make sure that he is managing that well additionally. We discussed the risk-benefit alternatives of continuing his current medications and medication adjustment after talking to his outpatient team who has been quite consistent with since discharge and he understood and agreed proceed as documented in his note. There have been no substantive changes in social circumstances since then an excerpt of his last discharge summary from November is included below for context. Per his 12/17/2020 [facility] inpatient psychiatric discharge summary: Discharge Diagnosis (1) Suicidal ideation: Status: Resolved (2) Schizoaffective disorder, depressive type: Status: Chronic (3) Adverse drug reaction: Status: Resolved (4) Adverse drug reaction: Status: Acute Reason for Visit Reason for Visit: SI Brief History: History of Present Illness Real Black is a 30 year old male who presented to the emergency department with the following report: Chief Complaint: Psychiatric Symptoms Stated Complaint: SI Time Seen by Provider: 12/14/20 23:40 Source: patient Mode of arrival: ambulatory Limitations: no limitations History of Present Illness: HPI Narrative: Patient is a 30-year-old male who presents to ED today with a complaint of auditory hallucinations and suicidal ideations. Patient tells me he was at NPU last month for hallucinations and states they adjusted some of his medications. He feels like the hallucinations are slightly improved but are still telling him to harm himself. He has no specific plan to kill himself. He does have a previous suicide attempt years ago . He is not homicidal. He is not having any visual hallucinations. He denies drug or alcohol use. MD complaint: suicidal ideation and other (Auditory hallucinations) Duration: constant History of same: Yes Context: new medication(s) Associated psychiatric symptoms: depression, suicidal ideation and auditory hallucinations Associated symptoms: Reports auditory hallucinations, depression and suicidal ideation; Deny visual hallucinations or homicidal ideation Treatments prior to arrival: none If self harm: admits thoughts of self harm. He was admitted to the neuropsychiatric unit for definitive treatment of those issues. Patient presents today reporting that he was really struggling with side effects to the medication and was thought that Seroquel was the culprit. He reports that the Seroquel was discontinued and the Risperdal which was started at 1 mg twice a day at his October hospitalization here by this jingle writer was ultimately increased to 8 mg daily in divided doses. Over the time since those changes he has had significant EPS with cognitive slowing, stiffness, feeling like he cannot speak like his tongue is full and has felt fairly bad. And a response to this in his interactions with his outside providers but just cut his Risperdal in half taking away the previous nighttime dose of 4 mg. He is now on 2 mg twice a day. We discussed the risk benefits and alternatives of making sure he was getting Cogentin with his Risperdal and he reports that he has had success with Cogentin and he understood agreed to proceed as documented in his note. He denies substantive changes otherwise and an excerpt from his 11/05/2020 hospitalization is included below for context. Per his 11/05/2020 [facility] inpatient psychiatric evaluation: History of Present Illness Real Black is a 30 year old male who presented to the emergency department with the following report: Chief Complaint: Psychiatric Symptoms Stated Complaint: SI Time Seen by Provider: 11/04/20 21:31 History of Present Illness: HPI Narrative: This patient is a 30-year-old male who presents to the emergency department with complaint of hearing voices and suicidal ideation. Patient states the voices in his head is getting louder and continually telling to harm himself. Patient does have a history of suicidal ideation and attempt in the past and has been admitted for the same. Patient states he has a long history of hearing voices but seem getting worse now. Patient does have a history of schizoaffective disorder with panic swings. Will do medical evaluation treat as needed. Patient is requesting to be admitted because he is concerned that he will not be able to hold visits. Duration: constant, changing over time and getting worse History of same: Yes Relieving factors: none Exacerbating factors: none Associated symptoms: Reports auditory hallucinations and suicidal ideation; Deny depression. He was admitted to the neuropsychiatric unit for definitive treatment of those issues. Seizure presents today in his fifth hospitalization this year all under Dr. Castorena prior endorsing that he lives at [facility] and that the reason why he came in was because his voices have gotten worse. And he cannot manage it. He was able to identify having a Wellbutrin and Depakote. We reviewed his medications and what he had issues with in the past. And so mainly he is tried most things and had an issue with Zyprexa. We did identify that Risperdal had some positive results he believes. We discussed the risk-benefit and alternatives of restarting Risperdal 1 mg twice a day and he understood agreed proceed as documented in this note. We reviewed his records and identified his 07/07/2020 outpatient evaluation from [facility] as being a comprehensive exploration of his history and excerpt is included below. Per his 07/07/2020 [facility] outpatient psychiatric evaluation: [facility] History and Physical Time In: 13:56 Time Out: 14:57 Chief Complaint: here for therapy and medications History of Present Illness: Information retrieved and edited from [facility] Comp. Clinical Assessment completed on: 05/26/20: anxiety and nervousness, wants therapy and medication management; moved here from [place]. Currently living at [facility], since 04/29/20. Before this arrangement, he was in [place], living at an investigative assistant living facility. He has moved several times back and for th from [place] to [place]. He is hoping his father will retire and his parents will move to [place]; they have a farm in [place]. Real had services with [facility] in 2016. Says he was inpatient due to his voices getting bad and he was suicidal. He says his current diagnosis are bipolar and now he is diagnosed with schizoaffective disorder; he is currently on medications. He is not aware if anyone in his family has bipolar or schizophrenia. He has had suicidal thoughts, chronic in nature. He tried to end his life in 2012 by hanging, reports the rope broke; previously held scissors to his throat; a cousin called him and that is what stopped him from doing it. He lived at [facility](assisted living facility in [place]) for four years, then moved to his Mom's friend's home in [place], [place]. Says he was referred to [facility] by friends of the [place]. Reported symptoms difficulty concentrating, thoughts hard to dismiss, annoyed and irritable, nervous feeling, worries and fears. Reported symptoms difficulty concentrating, thoughts hard to dismiss, annoyed and irritable, nervous feeling, worries and fears. Denied fatigue, pains, headache, or digestive problems. Current habits: Drinks 3 large glasses of tea per day; sometimes drinks 2 cups of coffee in the morning and 3 sodas during the day. Currently reports he sleeps from about midnight or 1 AM up until about 8 or 9 AM; usually obtains about 5 to 6 hours of rest during that time. He rarely takes a nap in the day. Sometimes skips breakfast, and usually eats lunch or dinner. He tries to walk 2 or 3 times per week (up to 1 and half to 2 miles at a time) for physical exercise. History Past Psychiatric History: Information retrieved and edited from [facility] Comp. Clinical Assessment completed on: 05/26/20: Real had services with [facility] in 2016; dx were: F25.1 Schizoaffective DO, Depressed Type; F15.20 Methamphetamine Use Disorder; he has had several [facility] stays at [facility]; refer to chart. Most recent inpatient hospitalization was from 06/12/20 to 06/15/20;included suicidal ideation; depressive disorder; and schizoaffective disorder. Real says hospitalization was due to his voices getting bad and he felt suicidal. History of chronic suicidal thoughts with a history of suicide gesture/attempt including: He tried to end his life in 2012 by hanging; the rope broke, he had scissors held to his throat; says a cousin called him and that is what stopped him from doing it. Real says every now and then his voices act up. He says he has one unrecognized male voice which tells him to do bad stuff to himself, but not to anyone else. Usually has increased depression and anxiety in the afternoon, usually from 2 PM to 5 PM. Reports he can a good day, and then out of the blue he doesn?t feel like doing anything; he feels worthless and down in the dumps for no reason; he says every now and then something may trigger it. He has anger problems and when he gets mad at himself, he has hurt himself in the past; hx of cutting; last time he cut himself was in 2018. He used a knife; was cutting his wrist, but hasn't cut deeply enough to be in the hospital. He expressed inability to concentrate, difficulty completing tasks, delayed responses during conversations. Says he had ADHD as a child; reported that he attended special classes, and took Concerta, Ritalin, and Adderall. Says the medication was beneficial at school, but usually wore off by the time he got home. Says he is able to control ADHD symptoms as an adult. Family History: Information retrieved and edited from [facility] Comp. Clinical Assessment completed on: 05/26/20 Family Psychiatric History: Anxiety and Depression History of Suicide in the Family: No Family history of substance abuse: Alcohol (father) Past Medical History: Information retrieved and edited from [facility] Comp. Clinical Assessment completed on: 05/26/20 Primary Care Provider: Yes (Dr. Flowers); last physical exam: Within past year (05.07.20) Client's Medical History: No major medical illness Surgical Procedure: Tonsillectomy; history of foot fracture Substance Use History: Information retrieved and edited from [facility] Comp. Clinical Assessment completed on: 05/26/20 Client history of substance abuse: Alcohol (yes) Age of onset (years): 13 Pattern of use: denied current use and has not used in 3 years; Cannabis (yes) Age of onset (years): 19 Pattern of use: denied current use; has not used in 3 years ; Amphetamine (yes) Age of onset (years): 21 Pattern of use: (previous snorting and smoking it );denied current use; has not used in 3 years; Nicotine (yes) Age of onset (years): 19 Pattern of use: current use: 1 ppd Client?s drug and/or alcohol use in the last 30 days: No Social History: Information retrieved and edited from [facility] Comp. Clinical Assessment completed on: 05/26/20 Childhood history: Real was born in [place]; at age [age], his parents moved near [place], [place]. When he was in 5th grade, he moved to [place]. He graduated high school, then moved to [place], [place]. He says he has a good childhood; his parents were in the home growing up and are still together. He is an only child. He is single; has no children. 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 History: Client denies service Abilities/Interests: tries to stay busy, likes to help others; he loves being outside; listens to music Legal Status/History: Current legal issues denied; denies previous arrests incarceration. Spiritual Pursuits: Other (he prays) Highest Education Level Reached: college (12th grade; reports he had ADHD in school and was on meds.) Academic Performance: Performance at grade level Hospital Course He quickly acclimated to the individual, group and milieu therapies provided. He was given Cogentin for his clear EPS and his Risperdal had already been decreased prior to admission. The combination of the 50% reduction in the Risperdal and the availability of Cogentin for the side effects he demonstrated marked improvement. He was able to contract for safety prior to discharge. During the hospitalization, patient had routine laboratory studies which were within normal limits except for few outliers. Additionally there was a general medical evaluation which was also within normal limits and revealed no new acute processes. Discharge Summary: At the time of discharge, lethality was denied and psychosis was resolving. Mood and anxiety were well managed. Patient endorsed a plan to follow-up with the aftercare recommendations of the treatment team. Patient was evaluated and deemed to be absent credible lethality, and had achieved the maximum benefit from an inpatient hospitalization, so was discharged. Meds NPU Home Medications Medication Instructions Recorded Confirmed Last Taken Type acetaminophen 500 mg tablet 1,000 mg PO Q6H PRN 08/03/20 01/31/21 11/04/20 09:00 History lisinopril 10 mg PO DAILY 08/03/20 01/31/21 01/31/21 History ibuprofen 800 mg PO Q8H PRN #20 tab 09/04/20 01/31/21 11/03/20 13:00 Rx naproxen [Naprosyn] 500 mg PO BID PRN #20 tab 10/01/20 01/31/21 Unknown Rx levothyroxine 100 mcg PO DAILY 12/15/20 01/31/21 01/31/21 History metoprolol succinate 25 mg PO DAILY 12/15/20 01/31/21 01/31/21 History omeprazole 20 mg capsule,delayed 20 mg PO DAILY 12/21/20 01/31/21 01/31/21 History release bupropion HCl 100 mg tablet,12 hr 100 mg PO QAM #30 tab 12/31/20 01/31/21 01/31/21 Rx sustained-release divalproex 500 mg tablet,delayed 500 mg PO BID #60 tab 12/31/20 01/31/21 01/31/21 Rx release hydroxyzine pamoate 25 mg capsule 25 mg PO Q8H PRN 30 Days #90 cap 12/31/20 01/31/21 Unknown Rx risperidone 1 mg disintegrating 1 mg PO BID PRN 30 Days #60 tab 01/26/21 01/31/21 01/31/21 Rx tablet risperidone 1 mg tablet 1 mg PO BID #60 tab 01/26/21 01/31/21 01/31/21 Rx Allergies Allergy/AdvReac Type Severity Reaction Status Date / Time chlorpromazine Allergy Severe ALGY-Anaphy Verified 01/26/21 10:48 laxis haloperidol [From Haldol] Allergy Severe ALGY-Swell Verified 01/26/21 10:48 Lip/Tongue/Throat lurasidone [From Latuda] Allergy Severe ALGY-Swell Verified 01/26/21 10:48 Lip/Tongue/Throat olanzapine [From Zyprexa] Allergy Severe ALGY-Swell Verified 01/26/21 10:48 Lip/Tongue/Throat PFSH NPU PFSH: Medical History Depressive disorder Hallucination Psychiatric care Schizoaffective disorder, depressive type Family History Other Diabetes Hypertension Social History Smoking and tobacco status: former smoker Quit status (tobacco): has quit using tobacco Year quit tobacco: 10/21/2020 Former quit date comment: patient had been smoking for 10 years Second hand smoke exposure: Yes Alcohol intake: never Adopted: No Caregiver/support person: Yes Lives independently: No (Staying at [facility]) Household members: other Details: Multiple other residents at the facility. 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 No abnormal movements except for mild psychomotor retardation. Cooperative with exam in no mild distress. Speech was decreased rate and volume. Mood described as depressed, affect subdued. Thought process mostly organized, thought content: Patient endorsed having suicidal ideation but denied homicidal ideation, there are no delusions reported or noted, he endorsed auditory but denied visual hallucinations. Attention and concentration appeared intact and memory appeared reliable but never formally tested. He is alert and oriented x3. Insight and judgment appear fair, impulse control appears fair. Vitals/I&O/Wt Last Vital Signs Temp 96.8 F L 03/09/21 14:00 Pulse 110 H 03/09/21 14:00 Resp 18 03/09/21 14:00 BP 129/92 03/09/21 14:00 Pulse Ox 97 03/09/21 14:00 Weight last 48 hrs Weight 99.79 kg Data NPU : 03/08/21 23:35 03/08/21 23:35 A&P Assessment and plan (1) Hallucination: Status: Acute (2) Suicide ideation: Status: Acute (3) Acute psychosis: Status: Acute (4) Schizoaffective disorder, depressive type: Status: Chronic Additional A&P Information This is a 30-year-old white male with a history of schizoaffective disorder who presents with an adverse drug reaction from an increase in Risperdal that was not tolerated by his system who presents with some suicidal thoughts secondary to how poorly he has felt. 1. Continue current medication. 2. Continue every 15 minute checks for safety. 3. Encourage individual, group and milieu therapies. 4. Reach out to his outpatient treatment team to explore changes and identify if there were any plans in the works. Involuntary Hold Information 96 Hour Hold: 96 Hour Involuntary Admission: Yes 96 Hour Hold Ending Date: 03/15/21 96 Hour Hold Ending Time: 00:28 Attestations NPU Medical Necessity Statement*: Inpatient hospitalization is medically necessary and the clinically appropriate intervention at this time. We will monitor medications and make changes as indicated. Patient will be in the hospital for over two midnights. Likely length of stay 3 to 5 days. Coding Level of Care Code Acute Agricultural Engineering Technician for Keny Ying Diagnoses Hallucination R44.3 Suicide ideation R45.851 Acute psychosis F23 Schizoaffective disorder, depressive type F25.1
[2021-03-09] MEDS: trazodone 50 mg Tablet PO (20:24)
[2021-03-09 20:55] VITALS: BP 151/93; PULSE 106; RESP 16; TEMP 36.6; O2SAT 98
[2021-03-10] MEDS: nicotine 2 mg Gum BUCCAL ×4 (05:26→15:36)
[2021-03-10 06:00] VITALS: BP 127/82; PULSE 104; RESP 20; TEMP 36.8; O2SAT 95
[2021-03-10] MEDS: risperiDONE 1 mg Tablet PO ×2 (09:39→17:56)
[2021-03-10] MEDS: pantoprazole DR 40 mg Tablet PO (09:39)
[2021-03-10] MEDS: divalproex DR 500 mg Tablet PO ×2 (09:39→17:56)
[2021-03-10] MEDS: metoprolol succinate ER (24 HR) 25 mg Tablet PO (09:39)
[2021-03-10] MEDS: lisinopril 10 mg Tablet PO (09:40)
[2021-03-10] MEDS: levothyroxine 100 mcg Tablet PO (09:40)
[2021-03-10] MEDS: hyDROXYzine 25 mg Capsule 50 MG PO (11:01)
--- NOTE | 2021-03-10 13:01 | NPU.GN ---
[facility] Group Topic:Coping Checkers General Mood of Group: Kendall did attend and participate in group today. He enjoyed the game of coping checkers. He was social with others in the group. He reported that he recently lost a family member and that is why he was in seeking help. He is linked with [facility] services for therapy and a CSS. He reported that he would like to attend a group for grieving and anger management.
[2021-03-10 13:50] VITALS: BP 123/77; PULSE 109; RESP 16; TEMP 36.6; O2SAT 94
--- NOTE | 2021-03-10 15:21 | W.PM.NPUPNS ---
Subjective NPU Subjective: Interval history: Patient presents today reporting that he is feeling a little better. He reports that the voices have all but dissipated and his depression is less. He identifies that the of his grandfather was likely the precipitating event or nidus of these new feelings as he felt fine prior. He reports he just did not know how to manage how he was feeling that he was overwhelmed but at this point he starting to feel more in control. We discussed the possibility of antidepressant and working with Dr. Guzman if he decided he wanted to move forward with that. Mental Status Exam MSE Comments: This is an obese white male who presents in hospital scrubs with limited grooming and adequate eye contact. No abnormal movements except for mild psychomotor retardation. Cooperative with exam in no mild distress. Speech was decreased rate and volume. Mood described as depressed, affect subdued. Thought process mostly organized, thought content: Patient endorsed having suicidal ideation but denied homicidal ideation, there are no delusions reported or noted, he denied auditory or visual hallucinations. Attention and concentration appeared intact and memory appeared reliable but never formally tested. He is alert and oriented x3. Insight and judgment appear fair, impulse control appears fair. Vitals/I&O/Wt Last Vital Signs Temp 97.8 F 03/10/21 13:50 Pulse 109 H 03/10/21 13:50 Resp 16 03/10/21 13:50 BP 123/77 03/10/21 13:50 Pulse Ox 94 03/10/21 13:50 Data NPU : 03/08/21 23:35 03/08/21 23:35 A&P Assessment and plan (1) Bereavement: Status: Acute Additional A&P Information (1) Hallucination: (2) Suicide ideation: (3) Acute psychosis: (4) Schizoaffective disorder, depressive type: Additional A&P Information This is a 30-year-old white male with a history of schizoaffective disorder who presents with an adverse drug reaction from an increase in Risperdal that was not tolerated by his system who presents with some suicidal thoughts secondary to how poorly he has felt. 1. Continue current medication. 2. Continue every 15 minute checks for safety. 3. Encourage individual, group and milieu therapies. 4. Reach out to his outpatient treatment team to explore changes and identify if there were any plans in the works. Involuntary Hold Information 96 Hour Hold: 96 Hour Involuntary Admission: Yes 96 Hour Hold Ending Date: 03/15/21 96 Hour Hold Ending Time: 00:28 Attestations NPU Medical Necessity Statement*: Inpatient hospitalization is medically necessary and the clinically appropriate intervention at this time. We will monitor medications and make changes as indicated. Likely length of stay 2-4 days. Coding Level of Care Code Acute Territory Manager General Sales for Chg Fwd Diagnoses Bereavement Z63.4
[2021-03-10] MEDS: ziprasidone hcl 40 mg Capsule PO (17:55)
[2021-03-10] MEDS: acetaminophen 500 mg Tablet 1000 MG PO (18:37)
[2021-03-10 20:04] VITALS: BP 119/74; PULSE 108; RESP 19; O2SAT 96
[2021-03-10] MEDS: quetiapine 300 mg Tablet PO (20:56)
[2021-03-11 06:00] VITALS: BP 109/68; PULSE 76; RESP 16; TEMP 36.3; O2SAT 97
[2021-03-11] MEDS: buPROPion SR (12 HR) 100 mg Tablet PO (08:55)
[2021-03-11] MEDS: naproxen 500 mg Tablet PO (08:55)
[2021-03-11] MEDS: ziprasidone hcl 40 mg Capsule PO ×2 (08:55→17:40)
[2021-03-11] MEDS: pantoprazole DR 40 mg Tablet PO (08:55)
[2021-03-11] MEDS: levothyroxine 100 mcg Tablet PO (08:56)
[2021-03-11] MEDS: lisinopril 10 mg Tablet PO (08:56)
[2021-03-11] MEDS: metoprolol succinate ER (24 HR) 25 mg Tablet PO (08:56)
[2021-03-11] MEDS: divalproex DR 500 mg Tablet PO ×2 (08:56→17:40)
[2021-03-11] MEDS: nicotine 2 mg Gum BUCCAL ×5 (09:27→20:03)
--- NOTE | 2021-03-11 12:24 | P.NPUPN_ITS ---
Subjective NPU Subjective: Interval history: He says that he continues to be better. He has not had any suicidal ideation since yesterday morning and that was very passing. The voices are about as low as they get. He cannot understand what they say. When they are lower they tell him to hurt themselves but he cannot understand that now. He said that he was admitted to hospital in [place] about a week before his grandfather . He said that they changed him to Seroquel 300 mg at bedtime and Geodon 40 mg twice a day. He feels like those medications worked better for him than the Risperdal 1 mg twice a day. He says that the Seroquel helps him sleep and helps the voices decreased. He knows to take the Geodon with food. He does not feel that he has side effects from those medications. He does not feel that he has an increased appetite. He was warned to watch out for that. He feels like he is ready to go home back to [place]. Mental Status Exam MSE Comments: This is an obese white male who presents in hospital scrubs with limited grooming and adequate eye contact. No abnormal movements. Psychomotor activity is normal. Cooperative with exam in no distress. Speech was of re gular rate and rhythm and normal volume. Mood described as depressed, affect subdued. Thought process mostly organized, thought content: Patient denied suicidal ideation or homicidal ideation today. He does report a passive suicidal thought yesterday morning, there are no delusions reported or noted, he denied auditory or visual hallucinations. Attention and concentration appeared intact and memory appeared reliable but never formally tested. He is alert and oriented x3. Insight and judgment appear fair, impulse control appears fair. Vitals/I&O/Wt Last Vital Signs Temp 97.4 F L 03/11/21 06:00 Pulse 76 03/11/21 06:00 Resp 16 03/11/21 06:00 BP 109/68 03/11/21 06:00 Pulse Ox 97 03/11/21 06:00 Data NPU : 03/08/21 23:35 03/08/21 23:35 A&P Assessment and plan (1) Bereavement: Status: Acute Additional A&P Information (1) Hallucination: (2) Suicide ideation: (3) Acute psychosis: (4) Schizoaffective disorder, depressive type: Additional A&P Information This is a 30-year-old white male with a history of schizoaffective disorder who presents with an adverse drug reaction from an increase in Risperdal that was not tolerated by his system who presents with some suicidal thoughts secondary to how poorly he has felt. 1. Continue current medication. Discontinue risperidone 1 mg twice a day. 2. Continue every 15 minute checks for safety. 3. Encourage individual, group and milieu therapies. 4. Reach out to his outpatient treatment team and informed of the hospitalization in [place] 3 weeks ago as well as the change to Jabier and Sophie.. Involuntary Hold Information 96 Hour Hold: 96 Hour Involuntary Admission: Yes 96 Hour Hold Ending Date: 03/15/21 96 Hour Hold Ending Time: 00:28 Attestations NPU Medical Necessity Statement*: Inpatient hospitalization is medically necessary and the clinically appropriate intervention at this time. We will initiate medications and make changes as indicated. Coding Level of Care Code Acute Mat Making Machine Tender for Keny Ying Diagnoses Bereavement Z63.4
[2021-03-11 14:00] VITALS: BP 124/73; PULSE 92; RESP 16; TEMP 36.9; O2SAT 96
[2021-03-11] MEDS: acetaminophen 325 mg Tablet 650 MG PO (17:33)
[2021-03-11 19:53] VITALS: BP 127/84; PULSE 98; RESP 18; O2SAT 96
[2021-03-11] MEDS: quetiapine 300 mg Tablet PO (20:03)
[2021-03-11] MEDS: trazodone 50 mg Tablet PO (20:04)
[2021-03-12 06:00] VITALS: BP 132/81; PULSE 95; RESP 16; O2SAT 96
[2021-03-12] MEDS: nicotine 2 mg Gum BUCCAL ×2 (07:03→08:53)
[2021-03-12] MEDS: lisinopril 10 mg Tablet PO (08:53)
[2021-03-12] MEDS: metoprolol succinate ER (24 HR) 25 mg Tablet PO (08:53)
[2021-03-12] MEDS: ziprasidone hcl 40 mg Capsule PO (08:53)
[2021-03-12] MEDS: pantoprazole DR 40 mg Tablet PO (08:53)
[2021-03-12] MEDS: levothyroxine 100 mcg Tablet PO (08:53)
[2021-03-12] MEDS: buPROPion SR (12 HR) 100 mg Tablet PO (08:53)
[2021-03-12] MEDS: divalproex DR 500 mg Tablet PO (08:53)
--- NOTE | 2021-03-12 09:59 | PC.SOCIAL ---
IMM update Discussed medicare rights with patient. Verbalized understanding. Provided patient with a copy and placed initialed, timed, dated copy in patient's chart.
[2021-03-12] MEDS: acetaminophen 500 mg Tablet 1000 MG PO (10:04)
--- NOTE | 2021-03-12 10:09 | P.NPUDS_ITS ---
Diagnoses at Discharge Discharge Diagnosis (1) Bereavement: Status: Acute Reason for Visit Reason for Visit: Hallucations SI Brief History: History of Present Illness Real Black is a 30 year old male who presented to the emergency department with the following report: Chief complaint: Psychiatric Symptoms Stated complaint: Hallucations SI Time Seen by Provider: 03/08/21 23:29 History of Present Illness: HPI narrative: HPI: [30]yo patient w/ hx of depression BIBA for suicidal ideation and hearing voices for On arrival, the patient is AAOx3 and cooperative with my evaluation. No focal complaints of chest pain, shortness of breath, palpitations, N/V, focal GI/ complaints. +SI for 10 hrs. Patient reports plans to hang himself. No complaints of hallucinations. Onset: chronic Duration: ongoing Location: home Severity: severe. He was admitted to the neuropsychiatric unit for definitive treatment of those issues. He presented today reporting that he had been doing better and taking his medications but then his grandfather and it seemed that things have spiraled out of control. He went to the and it seems like after that things went downhill he started experiencing more auditory hallucinations and everything just became too overwhelming for him and his as an outpatient. He reports that he is prediabetic and he wants to make sure that he is managing that well additionally. We discussed the risk-benefit alternatives of continuing his current medications and medication adjustment after talking to his outpatient team who has been quite consistent with since discharge and he understood and agreed proceed as documented in his note. There have been no substantive changes in social circumstances since then an excerpt of his last discharge summary from November is included below for context. Per his 12/17/2020 [facility] inpatient psychiatric discharge summary: Discharge Diagnosis (1) Suicidal ideation: Status: Resolved (2) Schizoaffective disorder, depressive type: Status: Chronic (3) Adverse drug reaction: Status: Resolved (4) Adverse drug reaction: Status: Acute Reason for Visit Reason for Visit: SI Brief History: History of Present Illness Real Black is a 30 year old male who presented to the emergency department with the following report: Chief Complaint: Psychiatric Symptoms Stated Complaint: SI Time Seen by Provider: 12/14/20 23:40 Source: patient Mode of arrival: ambulatory Limitations: no limitations History of Present Illness: HPI Narrative: Patient is a 30-year-old male who presents to ED today with a complaint of auditory hallucinations and suicidal ideations. Patient tells me he was at NPU last month for hallucinations and states they adjusted some of his medications. He feels like the hallucinations are slightly improved but are still telling him to harm himself. He has no specific plan to kill himself. He does have a previous suicide attempt years ago . He is not homicidal. He is not having any visual hallucinations. He denies drug or alcohol use. MD complaint: suicidal ideation and other (Auditory hallucinations) Duration: constant History of same: Yes Context: new medication(s) Associated psychiatric symptoms: depression, suicidal ideation and auditory hallucinations Associated symptoms: Reports auditory hallucinations, depression and suicidal ideation; Deny visual hallucinations or homicidal ideation Treatments prior to arrival: none If self harm: admits thoughts of self harm. He was admitted to the neuropsychiatric unit for definitive treatment of those issues. Patient presents today reporting that he was really struggling with side effects to the medication and was thought that Seroquel was the culprit. He reports that the Seroquel was discontinued and the Risperdal which was started at 1 mg twice a day at his [facility] hospitalization here by this chief underwriter was ultimately increased to 8 mg daily in divided doses. Over the time since those changes he has had significant EPS with cognitive slowing, stiffness, feeling like he cannot speak like his tongue is full and has felt fairly bad. And a response to this in his interactions with his outside providers but just cut his Risperdal in half taking away the previous nighttime dose of 4 mg. He is now on 2 mg twice a day. We discussed the risk benefits and alternatives of making sure he was getting Cogentin with his Risperdal and he reports that he has had success with Cogentin and he understood agreed to proceed as documented in his note. He denies substantive changes otherwise and an excerpt from his 11/05/2020 hospitalization is included below for context. Hospital Course Hospital Course He slowly acclimated to the individual, group and milieu therapies provided. He was continued on his outpatient medication of Synthroid 100 mcg daily, Seroquel 300 mg at bedtime, Geodon 40 mg twice a day. Wellbutrin was continued at 100 mg every morning but changed to 150 mg upon discharge. He tolerated these doses and showed steady improvement during his stay. He was able to contract for safety outside hospital prior to discharge. During the hospitalization, patient had routine laboratory studies which were within normal limits except for few outliers. Additionally there was a general medical evaluation which was also within normal limits and revealed no new acute processes. Discharge Summary: At the time of discharge, lethality was denied and psychosis was resolving. Mood and anxiety were well managed. Patient endorsed a plan to follow-up with the aftercare recommendations of the treatment team. Patient was evaluated and deemed to be absent credible lethality, and had achieved the maximum benefit from an inpatient hospitalization, so was discharged. Involuntary Hold Information 96 Hour Hold: 96 Hour Involuntary Admission: Yes 96 Hour Hold Ending Date: 03/15/21 96 Hour Hold Ending Time: 00:28 Mental Status Exam MSE Comments: This is an obese white male who presents in hospital scrubs with limited grooming and adequate eye contact. No abnormal movements. Psychomotor activity is normal. Cooperative with exam in no distress. Speech was of regular rate and rhythm and normal volume. Mood described as depressed, affect subdued. Thought process mostly organized, thought content: Patient denied suicidal ideation or homicidal ideation today. He denies any suicidal ideation the last 2 days. There are no delusions reported or noted, he denied auditory or visual hallucinations. Attention and concentration appeared intact and memory appeared reliable but never formally tested. He is alert and oriented x3. Insight and judgment appear fair, impulse control appears fair. Discharge Data Vitals: Last Vital Signs Temp 98.4 F 03/11/21 14:00 Pulse 95 03/12/21 06:00 Resp 16 03/12/21 06:00 BP 132/81 03/12/21 06:00 Pulse Ox 96 03/12/21 06:00 Discharge Plan Discharge Patient Disposition: Home Condition: Stable Prescriptions: New bupropion HCl 150 mg Tablet Extended Release 24 Hr 150 mg PO DAILY 30 Days Qty: 30 RF: 1 ibuprofen 800 mg Tablet 800 mg PO Q8H PRN (Reason: pain) Qty: 0 RF: 0 levothyroxine [Levoxyl] 100 mcg Tablet 100 mcg PO DAILY Qty: 0 RF: 0 lisinopril 10 mg Tablet 10 mg PO DAILY Qty: 0 RF: 0 quetiapine 300 mg Tablet 300 mg PO BEDTIME Qty: 0 RF: 0 ziprasidone HCl 40 mg Capsule 40 mg PO BID Qty: 0 RF: 0 divalproex 500 mg Tablet,Delayed Release (Dr/Ec) 500 mg PO BID Qty: 0 RF: 0 Continued omeprazole 20 mg capsule,delayed release(DR/EC) 20 mg PO DAILY RF: 0 acetaminophen [Tylenol Extra Strength] 500 mg tablet 1,000 mg PO Q6H PRN (Reason: Pain) RF: 0 hydroxyzine pamoate 25 mg capsule 25 mg PO Q8H PRN (Reason: Anxiety) 30 Days Qty: 90 RF: 1 lisinopril 10 mg Tablet 10 mg PO DAILY RF: 0 quetiapine 300 mg 300 mg PO BEDTIME RF: 0 ziprasidone HCl 40 mg 40 mg PO BID RF: 0 No Action ibuprofen 800 mg tablet 800 mg PO Q8H PRN (Reason: pain) Qty: 20 RF: 0 naproxen [Naprosyn] 500 mg tablet 500 mg PO BID PRN (Reason: pain) Qty: 20 RF: 0 levothyroxine 100 mcg tablet 100 mcg PO DAILY RF: 0 metoprolol succinate 25 mg tablet extended release 24 hr 25 mg PO DAILY RF: 0 quetiapine 100 mg 100 mg PO DAILY PRN (Reason: Agitation) RF: 0 Discharge Orders: Discharge Order (Routine); Ordered 03/12/21 Ordered By: Rupert Guzman Referrals: [facility] [Other] - 03/26/21 2:00 pm Patria Mckinney APRN [Nurse Practitioner] - 03/23/21 2:45 pm Sp Flowers MD [Primary Care Provider] - Discharge Diet: Regular Discharge Activity: Resume usual activity Patient Instructions: Opioid Safety Discharge Attestations NPU Time Spent in Discharge Care*: greater than 30 min Specific Discharge Activities: Specific discharge activities: educating patient, discussing with case assembler/social workers/dc planners, documenting/other paperwork and evaluating patient/reviewing data Status at Discharge: Cognitive status at discharge: cognitively intact , Behavioral status at discharge: cooperative , Coding Level of Care Code Acute Chg DC note Diagnoses Bereavement Z63.4
[2021-03-12 10:45] VITALS: BP 132/81; PULSE 95; RESP 16; O2SAT 96
== END 2021-03-12 11:53 | disposition home or self-care (01) | DRG 885 ==
LOC: ER 23:36 → NP 03-09 08:18
PROVIDERS: Admitting Provider Psychiatry & Neurology Psychiatry; Emergency Provider Emergency Medicine; PCP Family Medicine; Visit Provider Psychiatry & Neurology Psychiatry
DX: F25.1 Schizoaffective disorder, depressive type (principal); R45.851 Suicidal ideations; Z87.891 Personal history of nicotine dependence; Z63.4 Disappearance and death of family member
CPT/HCPCS: 80048; 80306; 80307; 85025; 97150; 97165; 99285

== ENCOUNTER 2021-03-13 00:09 | Emergency (ER) | payer MEDICARE, MEDICAID, SELFPAY ==
[2020-12-11 11:23] VITALS: BP 133/83; BMI 32.1
[2021-03-13 00:18] VITALS: BP 127/86; PULSE 98; RESP 14; TEMP 36.4; O2SAT 98; BMI 32.5
--- NOTE | 2021-03-13 00:30 | XRR_ITS ---
PROCEDURE INFORMATION: Exam: XR Thoracic Spine Exam date and time: 03/13/2021 12:30 AM Age: 30 years old Clinical indication: Injury or trauma; Fall; Blunt trauma (contusions or hematomas); Patient HX: Patient states went to sit in a chair and missed and fell C/O of back pain. TECHNIQUE: Imaging protocol: XR of the thoracic spine. Views: 3 views. COMPARISON: CR XR thoracic spine 3V* [id number] 08/26/2020 10:34 AM FINDINGS: Bones/joints: Normal. No acute fracture. Normal alignment. Soft tissues: Unremarkable. XR/XR thoracic spine 3V* [id number] IMPRESSION: No acute findings. Radiation Dose CTDIVOL = (mGy): DLP = (mGy-cm)
--- NOTE | 2021-03-13 00:30 | XRR_ITS ---
PROCEDURE INFORMATION: Exam: XR Lumbosacral Spine Exam date and time: 03/13/2021 12:30 AM Age: 30 years old Clinical indication: Injury or trauma; Fall; Blunt trauma (contusions or hematomas); Patient HX: Patient states went to sit in a chair and missed and fell C/O of back pain. TECHNIQUE: Imaging protocol: XR of the lumbosacral spine. Views: 2 or 3 views. COMPARISON: CR XR thoracic spine 3V* [id number] 08/26/2020 10:34 AM FINDINGS: Bones/joints: Normal. No acute fracture. Normal alignment. Soft tissues: Unremarkable. XR/XR lumbar spine 2-3V* [id number] IMPRESSION: No acute findings. Radiation Dose CTDIVOL = (mGy): DLP = (mGy-cm)
--- NOTE | 2021-03-13 00:35 | ED_ITS ---
HPI - Back Pain/Injury General: Chief Complaint: Back Pain/Injury Stated Complaint: Injury Lower Back Time Seen by Provider: 03/13/21 00:17 Source: patient Mode of arrival: ambulatory Limitations: no limitations History of Present Illness: HPI Narrative: 30-year-old male who states that he did set a chair 2 hours ago and fell on his back on the arm of the chair states been having mid back pain since the incident. States pain a 4 out of 10 worse with movement denies any other injuries. Denies any weakness in his legs patient is amatory here denies hitting his head. Associated symptoms: Deny abdominal pain, chills, dysuria, fever(s), nausea or vomiting Review of Systems Const: Denies: fever(s), chills, body aches or change in appetite Eyes: Denies: blurry vision or eye discomfort ENMT: Denies: throat pain or dental pain Card: Denies: chest pain Resp: Denies: dyspnea GI: Denies: abdominal pain, nausea, vomiting or diarrhea : Denies: dysuria Musc: Reports: back pain Skin/Breast: Denies: rash Neuro: Denies: headache(s) Psych: Denies: depression Jameson/Lymph: Denies: easy bruising All/Imm: Denies: urticaria PFSH ED PFSH: Medical History Depressive disorder Hallucination Psychiatric care Schizoaffective disorder, depressive type Family History Other Diabetes Hypertension Social History Smoking and tobacco status: former smoker Quit status (tobacco): has quit using tobacco Year quit tobacco: 10/21/2020 Former quit date comment: patient had been smoking for 10 years Second hand smoke exposure: Yes Alcohol intake: never Adopted: No Caregiver/support person: Yes Lives independently: No (Staying at [facility]) Household members: other Details: Multiple other residents at the facility. 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 Current occupational exposures/hazards: No Pets and animals: Yes Pets & animals: cat(s) History of recent travel: Yes (Just moved here from [place] in March.) Out of state: Yes Out of country: No Leisure activites: exercise, music, games and other Leisure activities details: watch TV Sexually active: No Current gender identity: Male Paola/Denominational: None Special paola needs: No Agree to transfusion: Yes Financial difficulty paying for basics: Not Very Hard Physical Exam Const: COMMON NORMALS: no acute distress, patient oriented x3 and healthy appearing HENMT: COMMON NORMALS: normocephalic and atraumatic HEAD & SCALP: normocephalic and atraumatic Eye: COMMON NORMALS: Equal, round and reactive pupils present and EOMs intact bilaterally PUPIL: Yes Equal, round and reactive pupils present Neck/C-Spine: COMMON NORMALS: full ROM and supple Chest: COMMONS NORMALS: normal inspection of the chest and normal palpation of entire chest wall Resp: COMMON NORMALS: normal respiratory effort, No retractions, No use of accessory muscles and clear to auscultation bilaterally AUSCULTATION: clear to auscultation bilaterally Cardio: COMMON NORMALS: regular rate, regular rhythm and No murmurs present (Cardio) RATE: regular rate RHYTHM: regular rhythm GI: COMMON NORMALS: Normal to inspection, nondistended, normoactive bowel sounds present, Soft to palpation, non-tender and no masses PALPATION: Yes Soft to palpation Back/Pelvis: OTHER: Slight tenderness along T and L-spine with no contusions or deformities Extremity: COMMON NORMALS: normal to inspection and full ROM Neuro: COMMON NORMALS: patient oriented x3, moves all extremities and no focal motor deficits Psych: COMMON NORMALS: mental status grossly normal, Normal thought process present and cooperative THOUGHT PROCESS: Normal thought process present Skin: COMMON NORMALS: no rashes or lesions noted and no wounds GENERAL SKIN EXAM: no rashes or lesions noted Course Vital Signs: Vital signs: Vital Signs Temperature 97.5 F L 03/13/21 00:18 Pulse Rate 98 03/13/21 00:18 Respiratory Rate 14 03/13/21 00:18 Blood Pressure 127/86 03/13/21 00:18 Pulse Oximetry 98 03/13/21 00:18 MDM - Back Pain/Injury MDM Narrative: Medical decision making narrative: Patient presents here with back pain from a back contusion no signs of any major injuries x-rays here are negative patient is stable for discharge with size series to follow-up PCP and return if worsening understands agrees to plan. Imaging Data^: xr lumbar: Attestation: I personally reviewed and interpreted this imaging study as follows: My impression: no acute abnormality xr thoracic: Attestation: I personally reviewed and interpreted this imaging study as follows: My impression: no acute abnormality Discharge Plan Discharge Patient Disposition: Home Clinical Impression: Contusion of back Qualifiers: Encounter type: initial encounter Laterality: unspecified laterality Qualified Code(s): S20.229A - Contusion of unspecified back wall of thorax, initial encounter Condition: Stable Prescriptions: No Action omeprazole 20 mg capsule,delayed release(DR/EC) 20 mg PO DAILY RF: 0 acetaminophen [Tylenol Extra Strength] 500 mg tablet 1,000 mg PO Q6H PRN (Reason: Pain) RF: 0 hydroxyzine pamoate 25 mg capsule 25 mg PO Q8H PRN (Reason: Anxiety) 30 Days Qty: 90 RF: 1 lisinopril 10 mg Tablet 10 mg PO DAILY RF: 0 ibuprofen 800 mg tablet 800 mg PO Q8H PRN (Reason: pain) Qty: 20 RF: 0 naproxen [Naprosyn] 500 mg tablet 500 mg PO BID PRN (Reason: pain) Qty: 20 RF: 0 levothyroxine 100 mcg tablet 100 mcg PO DAILY RF: 0 metoprolol succinate 25 mg tablet extended release 24 hr 25 mg PO DAILY RF: 0 quetiapine 300 mg 300 mg PO BEDTIME RF: 0 ziprasidone HCl 40 mg 40 mg PO BID RF: 0 quetiapine 300 mg Tablet 300 mg PO BEDTIME Qty: 0 RF: 0 ibuprofen 800 mg Tablet 800 mg PO Q8H PRN (Reason: pain) Qty: 0 RF: 0 divalproex 500 mg Tablet,Delayed Release (Dr/Ec) 500 mg PO BID Qty: 0 RF: 0 Levoxyl 100 mcg Tablet 100 mcg PO DAILY Qty: 0 RF: 0 lisinopril 10 mg Tablet 10 mg PO DAILY Qty: 0 RF: 0 ziprasidone HCl 40 mg Capsule 40 mg PO BID Qty: 0 RF: 0 bupropion HCl 150 mg Tablet Extended Release 24 Hr 150 mg PO DAILY 30 Days Qty: 30 RF: 1 Discharge Orders: Discharge ED (Routine); Ordered 03/13/21 Ordered By: Jessica Rai Referrals: Sp Flowers MD [Primary Care Provider] - 1-3 days Discharge Diet: Advance as tolerated Discharge Activity: Resume usual activity Patient Instructions: Back Pain (ED) Coding Level of Care Code ED Laboratory Animal Facility Supervisor for Chg Fwd Exam Comprehensive
[2021-03-13] MEDS: naproxen 500 mg Tablet PO (01:01)
[2021-03-13 01:04] VITALS: BP 125/85; PULSE 101; RESP 18; O2SAT 95
[2021-03-13 01:11] VITALS: BP 125/85; PULSE 100; RESP 18; O2SAT 96
== END 2021-03-13 01:14 | disposition home or self-care (01) ==
PROVIDERS: Emergency Provider Emergency Medicine; PCP Family Medicine
DX: S20.229A Contusion of unspecified back wall of thorax, initial encounter (principal); Z87.891 Personal history of nicotine dependence; W19.XXXA Unspecified fall, initial encounter
CPT/HCPCS: 72072; 72100; 99283

== ENCOUNTER → 2021-03-23 14:04 | Outpatient (BNVA) | payer MEDICARE, MEDICAID, SELFPAY ==
[2020-12-11 11:23] VITALS: BP 133/83; BMI 32.1
== END ==
PROVIDERS: PCP Family Medicine; Visit Provider Nurse Practitioner Psychiatric/Mental Health
DX: F25.1 Schizoaffective disorder, depressive type (principal)
CPT/HCPCS: 99214

== ENCOUNTER 2021-03-25 23:32 | Emergency (ER) | payer MEDICARE, MEDICAID, SELFPAY ==
[2020-12-11 11:23] VITALS: BP 133/83; BMI 32.1
[2021-03-26 00:50] VITALS: BP 127/86; PULSE 92; RESP 18; TEMP 36.9; O2SAT 98; BMI 32.5
--- NOTE | 2021-03-26 02:49 | W.ED.BACK ---
HPI - Back Pain/Injury General: Chief Complaint: Back Pain/Injury Stated Complaint: Back Pain Time Seen by Provider: 03/26/21 02:43 History of Present Illness: HPI Narrative: Patient is a 30-year-old male comes to the ED with back pain. Patient says that earlier today he was helping some people move. He lifted a couch and it caused some pain in his mid back. A couple hours after injury patient has gotten more stiff and more pain in the mid back. Pain is bilateral. It hurts whenever he does any movement with torso. Denies any numbness tingling to lower extremities, weakness, bladder or bowel incontinence or any pelvic anesthesia. Associated symptoms: Deny abdominal pain, chills, dysuria, fatigue, fever(s), hematuria, nausea or vomiting Review of Systems Const: Denies: fever(s), chills or fatigue Eyes: Denies: change in vision or eye discomfort ENMT: Denies: throat pain, odynophagia, nasal discharge or nasal congestion Card: Denies: chest pain, palpitations, edema, swelling of feet/ankles, dyspnea on exertion or orthopnea Resp: Denies: dyspnea, productive cough or non-productive cough GI: Denies: abdominal pain, nausea, vomiting, diarrhea, constipation or hematochezia : Denies: flank pain, difficulty urinating, dysuria or hematuria Musc: Reports: back pain; Denies: neck pain or extremity swelling Skin/Breast: Denies: rash or new lesions Neuro: Denies: headache(s), numbness in extremities or weakness in extremities PFS ED PFSH: Medical History Depressive disorder Hallucination Psychiatric care Schizoaffective disorder, depressive type Family History Other Diabetes Hypertension Schizoaffective disorder, depressive type Social History Smoking and tobacco status: former smoker Quit status (tobacco): has quit using tobacco Year quit tobacco: 10/21/2020 Former quit date comment: patient had been smoking for 10 years Second hand smoke exposure: Yes Alcohol intake: never Adopted: No Caregiver/support person: Yes Lives independently: No (Staying at [facility]) Household members: other Details: Multiple other residents at the facility. 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 Current occupational exposures/hazards: No Pets and animals: Yes Pets & animals: cat(s) History of recent travel: Yes (Just moved here from [place] in March.) Out of state: Yes Out of country: No Leisure activites: exercise, music, games and other Leisure activities details: watch TV Sexually active: No Current gender identity: Male Paola/Anabaptism: None Special paola needs: No Agree to transfusion: Yes Financial difficulty paying for basics: Not Very Hard Physical Exam Const: COMMON NORMALS: no acute distress, patient oriented x3 and healthy appearing GENERAL APPEARANCE: cooperative and comfortable HENMT: COMMON NORMALS: normocephalic HEAD & SCALP: normocephalic MOUTH: Normal oral and palatal mucosa present THROAT: posterior oropharynx normal and uvula midline Neck/C-Spine: COMMON NORMALS: supple GENERAL: Yes normal visual inspection Resp: COMMON NORMALS: normal respiratory effort, No retractions, No use of accessory muscles and clear to auscultation bilaterally AUSCULTATION: clear to auscultation bilaterally Cardio: COMMON NORMALS: regular rate, regular rhythm, S1 normal heart sound present, S2 normal heart sound present, No gallops present (Cardio), No clicks present (Cardio), No murmurs present (Cardio) and Peripheral pulses 2+ throughout RATE: regular rate RHYTHM: regular rhythm HEART SOUNDS: S1 normal heart sound present and S2 normal heart sound present PERIPHERAL PULSES: Peripheral pulses 2+ throughout GI: COMMON NORMALS: Normal to inspection, nondistended, normoactive bowel sounds present, Soft to palpation, non-tender and no masses PALPATION: Yes Soft to palpation : COMMON NORMALS: Yes no CVA tenderness BLADDER/KIDNEY EXAM: Yes no CVA tenderness Back/Pelvis: COMMON NORMALS: no CVA tenderness THORACIC SPINE/UPPER BACK: Yes pain with ROM, No thoracic spinal tenderness and Yes paraspinal muscle tenderness Thoracic paraspinal muscle tenderness: bilateral Bilateral thoracic paraspinal muscle tenderness: T7, T8 and T9 Extremity: COMMON NORMALS: normal to inspection Neuro: COMMON NORMALS: patient oriented x3 and moves all extremities Skin: GENERAL SKIN EXAM: dry skin Course Vital Signs: Vital signs: Vital Signs Temperature 98.4 F 03/26/21 00:50 Pulse Rate 90 03/26/21 02:54 Respiratory Rate 18 03/26/21 02:54 Blood Pressure 136/83 03/26/21 02:54 Pulse Oximetry 98 03/26/21 02:54 MDM - Back Pain/Injury MDM Narrative: Medical decision making narrative: Patient is a 30-year-old male who comes to the ED with mid pain after lifting a couch and helping someone move today. Patient has thoracic paraspinal muscle tenderness bilaterally but no thoracic spinal tenderness. Denies any cauda equina symptoms. Patient was given dose of Toradol and Norflex while here in the ED. Patient diagnosed with thoracic back pain and discharged home with prescription for Celebrex and cyclobenzaprine. Rest and ice pack to help with symptoms. Return to ED precautions given. Follow-up with PCP in 7 to 10 days reevaluation. Patient understood and agreed with plan. Discharge Plan Discharge Patient Disposition: Home Clinical Impression: Thoracic back pain Qualifiers: Chronicity: acute Back pain laterality: bilateral Qualified Code(s): M54.6 - Pain in thoracic spine Condition: Stable Prescriptions: New Celebrex 100 mg capsule 100 mg PO BID PRN (Reason: pain) Qty: 20 RF: 0 cyclobenzaprine 10 mg tablet 10 mg PO BID PRN (Reason: muscle spasm) Qty: 12 RF: 0 No Action omeprazole 20 mg capsule,delayed release(DR/EC) 20 mg PO DAILY RF: 0 acetaminophen [Tylenol Extra Strength] 500 mg tablet 1,000 mg PO Q6H PRN (Reason: Pain) RF: 0 risperidone 1 mg tablet,disintegrating 1 mg PO BID PRN (Reason: psychosis) RF: 0 tizanidine 4 mg capsule 4 mg PO Q8H PRNRF: 0 melatonin 3 mg tablet 6 mg PO .HS RF: 0 metformin 500 mg tablet 500 mg PO BID RF: 0 hydroxyzine pamoate 25 mg capsule 25 mg PO .q 4 to 6 hours PRN (Reason: Anxiety) 30 Days Qty: 45 RF: 1 ziprasidone HCl 40 mg capsule 40 mg PO BID Qty: 60 RF: 0 quetiapine 300 mg tablet 300 mg PO BEDTIME Qty: 30 RF: 0 divalproex [Depakote ER] 500 mg tablet extended release 24 hr 500 mg PO BID Qty: 60 RF: 0 metoprolol succinate 25 mg tablet extended release 24 hr 25 mg PO DAILY RF: 0 ibuprofen 800 mg Tablet 800 mg PO Q8H PRN (Reason: pain) Qty: 0 RF: 0 Levoxyl 100 mcg Tablet 100 mcg PO DAILY Qty: 0 RF: 0 lisinopril 10 mg Tablet 10 mg PO DAILY Qty: 0 RF: 0 bupropion HCl 150 mg Tablet Extended Release 24 Hr 150 mg PO DAILY 30 Days Qty: 30 RF: 1 Discharge Orders: Discharge ED (Routine); Ordered 03/26/21 Ordered By: Amarjit Covarrubias Referrals: Sp Flowers MD [Primary Care Provider] - Discharge Diet: Regular Discharge Activity: Increase activity as tolerated and Limit activity as instructed Patient Instructions: Back Pain (ED) Activity Restrictions/Additional Instructions: Follow-up with medical provider as directed. Rest and limit any lifting for the next couple days to allow your back to heal. Apply cold pack or heat on back to help with symptoms. Take medications as prescribed. Cyclobenzaprine is a muscle relaxer and can cause some drowsiness so take at night before going to bed. You can take the Celebrex daily for pain but do not take both ibuprofen and Celebrex daily. return to the ER or your medical provider if condition worsens. Please read and understand discharge instructions. Thank you for choosing [facility] for your healthcare needs today. Please realize this is an emergency room and that we are providing you with a medical screening exam and this may not be complete and all inclusive of all the testing and or work up that you may need to determine your ailment or severity of your illness. It is very important that you follow up as instructed or that you return to the Emergency Department should you have concerns or if your condition changes or worsens in any way. Coding Level of Care Code ED Screen Writer for Keny Ying Exam Comprehensive
[2021-03-26 02:54] VITALS: BP 136/83; PULSE 90; RESP 18; O2SAT 98
[2021-03-26] MEDS: ketorolac 60 mg/2 mL INJ IM (03:31)
[2021-03-26] MEDS: orphenadrine 30 mg/mL Inj 2 mL 60 MG IM (03:31)
== END 2021-03-26 03:38 | disposition home or self-care (01) ==
PROVIDERS: Emergency Provider Physician Assistant; PCP Family Medicine
DX: M54.6 Pain in thoracic spine (principal); Z79.84 Long term (current) use of oral hypoglycemic drugs; Z87.891 Personal history of nicotine dependence
CPT/HCPCS: 96372; 99283; J1885; J2360

== ENCOUNTER → 2021-04-08 14:20 | Outpatient (BNVA) | payer MEDICARE, MEDICAID, OTHER, SELFPAY ==
[2020-12-11 11:23] VITALS: BP 133/83; BMI 32.1
== END ==
PROVIDERS: PCP Family Medicine; Visit Provider Nurse Practitioner Psychiatric/Mental Health
DX: F25.1 Schizoaffective disorder, depressive type (principal)
CPT/HCPCS: 99213

== ENCOUNTER → 2021-05-06 15:14 | Outpatient (BNVA) | payer MEDICARE, MEDICAID, SELFPAY ==
[2020-12-11 11:23] VITALS: BP 133/83; BMI 32.1
== END ==
PROVIDERS: PCP Family Medicine; Visit Provider Nurse Practitioner Psychiatric/Mental Health
DX: F25.1 Schizoaffective disorder, depressive type (principal)
CPT/HCPCS: 99213

== ENCOUNTER 2021-05-11 | Inpatient (IN) | payer MEDICARE, MEDICAID, SELFPAY ==
[2020-12-11 11:23] VITALS: BP 133/83; BMI 32.1
[2021-05-11] VITALS (7 sets, daily range): BP systolic 118–130; BP diastolic 72–86; PULSE 84–110; RESP 16–18; TEMP 36.3–37.1; O2SAT 96–99; BMI 32.5
--- NOTE | 2021-05-11 00:34 | W.ED.PSYCHS ---
HPI - Psych General: Chief Complaint: Psychiatric Symptoms Stated Complaint: SI Time Seen by Provider: 05/11/21 00:03 Source: patient Mode of arrival: ambulatory Limitations: no limitations History of Present Illness: HPI Narrative: 22-year-old male has an extensive psychiatric history with schizoaffective disorder and depression. He states he has been hearing voices again over the last 1 to 2 hours and is having suicidal thoughts he has no specific plan he states he feels like he needs help and admitted to psych unit. Denies any suicide attempts. Denies any worsening improving factors. Associated symptoms: Reports auditory hallucinations and suicidal ideation Review of Systems Const: Denies: fever(s), chills, body aches or change in appetite Eyes: Denies: blurry vision or eye discomfort ENMT: Denies: throat pain or dental pain Card: Denies: chest pain Resp: Denies: dyspnea GI: Denies: abdominal pain, nausea, vomiting or diarrhea : Denies: dysuria Musc: Denies: neck pain or back pain Skin/Breast: Denies: rash Neuro: Denies: headache(s) Psych: Reports: auditory hallucinations and suicidal ideation Jameson/Lymph: Denies: easy bruising All/Imm: Denies: urticaria PFSH ED PFSH: Medical History Depressive disorder Hallucination Psychiatric care Schizoaffective disorder, depressive type Family History Other Diabetes Hypertension Schizoaffective disorder, depressive type Social History Smoking and tobacco status: former smoker Quit status (tobacco): has quit using tobacco Year quit tobacco: 10/21/2020 Former quit date comment: patient had been smoking for 10 years Second hand smoke exposure: Yes Alcohol intake: never Adopted: No Caregiver/support person: Yes Lives independently: No (Staying at [facility] Household members: other Details: Multiple other residents at the facility. 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 Current occupational exposures/hazards: No Pets and animals: Yes Pets & animals: cat(s) History of recent travel: Yes (Just moved here from [place] in March.) Out of state: Yes Out of country: No Leisure activites: exercise, music, games and other Leisure activities details: watch TV Sexually active: No Current gender identity: Male Paola/Taoist: None Special paola needs: No Agree to transfusion: Yes Financial difficulty paying for basics: Not Very Hard Physical Exam Const: COMMON NORMALS: no acute distress, patient oriented x3 and healthy appearing HENMT: COMMON NORMALS: normocephalic and atraumatic HEAD & SCALP: normocephalic and atraumatic Eye: COMMON NORMALS: Equal, round and reactive pupils present and EOMs intact bilaterally PUPIL: Yes Equal, round and reactive pupils present Neck/C-Spine: COMMON NORMALS: full ROM and supple Chest: COMMONS NORMALS: normal inspection of the chest and normal palpation of entire chest wall Resp: COMMON NORMALS: normal respiratory effort, No retractions, No use of accessory muscles and clear to auscultation bilaterally AUSCULTATION: clear to auscultation bilaterally Cardio: COMMON NORMALS: regular rate, regular rhythm and No murmurs present (Cardio) RATE: regular rate RHYTHM: regular rhythm GI: COMMON NORMALS: Normal to inspection, nondistended, normoactive bowel sounds present, Soft to palpation, non-tender and no masses PALPATION: Yes Soft to palpation Extremity: COMMON NORMALS: normal to inspection and full ROM Neuro: COMMON NORMALS: patient oriented x3, moves all extremities and no focal motor deficits Psych: COMMON NORMALS: mental status grossly normal and cooperative THOUGHT CONTENT: Yes Suicidality present and Yes Hallucination(s) present Skin: COMMON NORMALS: no rashes or lesions noted and no wounds GENERAL SKIN EXAM: no rashes or lesions noted Course Vital Signs: Vital signs: Vital Signs Temperature 97.7 F 05/11/21 00:10 Pulse Rate 92 05/11/21 00:10 Respiratory Rate 18 05/11/21 00:10 Blood Pressure 130/86 05/11/21 00:10 Pulse Oximetry 97 05/11/21 00:10 MDM - Psych MDM Narrative: Medical decision making narrative: Patient presents here with hallucinations along with suicidal ideation patient is medically cleared is voluntarily admitted to psychiatric unit spoke to psychiatrist and will admit. Lab Data: Labs: Lab Results 05/11/21 05/11/21 05/11/21 00:20 00:20 00:20 WBC 8.2 10^3/uL 10^3/ uL (4.0-10.0) RBC 4.81 10^6/uL 10^6 /uL (4.1-5.3) Hgb 14.8 g/dL g/dL (11.7-16.6) Hct 43.0 % % (42.0-52.0) MCV 89.4 fl fl (80-94) MCH 30.8 pg pg (28.0-34.0) MCHC 34.4 g/dL g/dL (30.0-36.0) RDW 12.5 % % (12.1-15.1) Plt Count 258 10^3/cmm 10^3 /cmm (130-400) MPV 9.6 fL fL (7.4-10.4) Neut % (Auto) 43.9 % % Lymph % (Auto) 49.0 % % Falls % (Auto) 4.9 % % Eos % (Auto) 1.6 % % Baso % (Auto) 0.4 % % Neut # (Auto) 3.59 10^3/uL 10^3 /uL (1.8-7.7) Lymph # (Auto) 4.0 10^3/uL 10^3/ uL (0.8-4.8) Falls # (Auto) 0.4 10^3/uL 10^3/ uL (0.2-0.9) Eos # (Auto) 0.1 10^3/uL 10^3/ uL (0.0-0.8) Baso # (Auto) 0.0 10^3/uL 10^3/ uL (0.0-0.1) Nucleated RBC % (a uto) 0 % % Nucleated RBCs # 0.0 /100WBC /100W BC Sodium 136 mmol/L mmol/L (136-145) Potassium 4.0 mmol/L mmol/L (3.5-5.1) Chloride 101 mmol/L mmol/L (98-107) Carbon Dioxide 23 mmol/L mmol/L (22-29) Anion Gap 16.0 (5-19) BUN 8 mg/dL mg/dL (6-20) Creatinine 0.8 mg/dL mg/dL (0.7-1.2) GFR Calculation 114.3 mL/min mL/m in (90-130) Glucose 97 mg/dL mg/dL (65-115) Calculated Osmolal ity 280 mOsm/kg L mOs m/kg (285-295) Calcium 8.9 mg/dL mg/dL (8.5-10.5) Total Bilirubin 0.2 mg/dL mg/dL (0.15-1.2) AST 15 U/L U/L (0-40) ALT 23 U/L U/L (0-41) Alkaline Phosphata se 37 IU/L L IU/L (40-130) Total Protein 7.1 g/dL g/dL (6.6-8.7) Albumin 4.6 g/dL g/dL (3.5-5.2) Globulin 2.5 g/dL g/dL (1.3-4.6) Salicylates < 0.3 mg/dL L mg/ dL (3-10) Urine Opiates Scre en Acetaminophen < 5.0 ug/mL L ug/ mL (10-30) Ur Barbiturates Sc reen Valproic Acid 48.0 ug/mL L ug/m L (50-100) Ur Phencyclidine S crn Ur Amphetamines Sc reen U Benzodiazepines Scrn Urine Cocaine Scre en U Marijuana (THC) Screen Ethyl Alcohol < 10 mg/dL mg/dL (0-10) 05/11/21 00:25 WBC RBC Hgb Hct MCV MCH MCHC RDW Plt Count MPV Neut % (Auto) Lymph % (Auto) Falls % (Auto) Eos % (Auto) Baso % (Auto) Neut # (Auto) Lymph # (Auto) Falls # (Auto) Eos # (Auto) Baso # (Auto) Nucleated RBC % (a uto) Nucleated RBCs # Sodium Potassium Chloride Carbon Dioxide Anion Gap BUN Creatinine GFR Calculation Glucose Calculated Osmolal ity Calcium Total Bilirubin AST ALT Alkaline Phosphata se Total Protein Albumin Globulin Salicylates Urine Opiates Scre en Negative ng/mL ng /mL (Negative) Acetaminophen Ur Barbiturates Sc reen Negative ng/mL ng /mL (Negative) Valproic Acid Ur Phencyclidine S crn Negative ng/mL ng /mL (Negative) Ur Amphetamines Sc reen Negative ng/mL ng /mL (Negative) U Benzodiazepines Scrn Negative ng/mL ng /mL (Negative) Urine Cocaine Scre en Negative ng/mL ng /mL (Negative) U Marijuana (THC) Screen Negative ng/mL ng /mL (Negative) Ethyl Alcohol Discharge Plan Discharge Patient Disposition: Admitted As Inpatient Clinical Impression: Hallucination, Suicidal ideation Condition: Stable Coding Level of Care Code ED Insole Toe Snipping Machine Operator for Keny Ying Exam Comprehensive
[2021-05-11 00:39] LABS: Amphetamines Screen Urine Negative (Negative); Barbiturates Screen Urine Negative (Negative); Benzodiazepines Screen Urine Negative (Negative); Cocaine Screen Urine Negative (Negative); Opiate Screen Urine Negative (Negative); PCP Screen Urine Negative (Negative); THC Screen Urine Negative (Negative)
[2021-05-11 00:42] LABS: Basophils % 0.4 %; Eosinophils # 0.1 10^3/uL (0.0-0.8); Eosinophils % 1.6 %; Hemoglobin 14.8 g/dL (11.7-16.6); Mean Corpuscular HGB Conc 34.4 g/dL (30.0-36.0); Mean Corpuscular Hemoglobin 30.8 pg (28.0-34.0); Mean Corpuscular Volume 89.4 fl (80-94); Mean Platelet Volume 9.6 fL (7.4-10.4); Monocytes # 0.4 10^3/uL (0.2-0.9); Monocytes % 4.9 %; Neutrophils # 3.59 10^3/uL (1.8-7.7); Neutrophils % 43.9 %; Nucleated Red Blood Cells % 0 %; Platelet Count 258 10^3/cmm (130-400); Red Blood Count 4.81 10^6/uL (4.1-5.3); Red Cell Distribution Width 12.5 % (12.1-15.1); White Blood Count 8.2 10^3/uL (4.0-10.0)
[2021-05-11] MEDS: LORazepam 2 mg Tablet PO (00:55)
[2021-05-11 01:08] LABS: Acetaminophen < 5.0 ug/mL (10-30); Alanine Aminotransferase 23 U/L (0-41); Albumin Level 4.6 g/dL (3.5-5.2); Alcohol Level < 10 mg/dL (0-10); Alkaline Phosphatase 37 IU/L (40-130); Aspartate Amino Transferase 15 U/L (0-40); Blood Urea Nitrogen 8 mg/dL (6-20); Calcium 8.9 mg/dL (8.5-10.5); Carbon Dioxide 23 mmol/L (22-29); Chloride 101 mmol/L (98-107); Globulin 2.5 g/dL (1.3-4.6); Glomerular Filtration Rate 114.3 mL/min (90-130); Glucose 97 mg/dL (65-115); Osmolality Calculated 280 mOsm/kg (285-295); Salicylate < 0.3 mg/dL (3-10); Sodium 136 mmol/L (136-145); Total Bilirubin 0.2 mg/dL (0.15-1.2); Total Protein 7.1 g/dL (6.6-8.7)
[2021-05-11] MEDS: lisinopril 10 mg Tablet PO (08:37)
[2021-05-11] MEDS: nicotine 2 mg Gum BUCCAL ×3 (08:37→18:29)
[2021-05-11] MEDS: buPROPion XL (24 HR) 150 mg Tablet PO (08:38)
[2021-05-11] MEDS: levothyroxine 100 mcg Tablet PO (08:38)
[2021-05-11] MEDS: pantoprazole DR 40 mg Tablet PO (08:38)
[2021-05-11] MEDS: ziprasidone hcl 40 mg Capsule PO ×2 (08:38→17:03)
[2021-05-11] MEDS: metoprolol succinate ER (24 HR) 25 mg Tablet PO (08:38)
[2021-05-11] MEDS: divalproex ER 500 mg Tablet (24H) PO ×2 (08:38→17:03)
--- NOTE | 2021-05-11 08:46 | P.NPUHP_ITS ---
Providers/Chief Complaint Admitting Physician: Rupert Guzman MD Primary Care Provider: Sp Flowers MD Chief Complaint: SI HPI N[facility] History of Present Illness Real Black is a 30 year old male who was admitted through the emergency department with the following report: HPI Narrative: 22-year-old male has an extensive psychiatric history with schizoaffective disorder and depression. He states he has been hearing voices again over the last 1 to 2 hours and is having suicidal thoughts he has no specific plan he states he feels like he needs help and admitted to psych unit. Denies any suicide attempts. Denies any worsening improving factors. Associated symptoms: Reports auditory hallucinations and suicidal ideation He was admitted for definitive treatment of these issues. He says that he has been doing well up until yesterday. He has been getting along well with his girlfriend. He says that they will have their 1 year anniversary on May 19. Neither one of them have money currently and they will save money from their check at 25 May and celebrate their anniversary on . They will go to [place]. His girlfriend lives at the facility with him. He says that he has previously asked his psychiatrist if he can take as needed medications when he has worsening voices. He says that the psychiatrist said that he is already on the Depakote and that would be too much. He does have Vistaril 25 mg to take as needed but that does not help with voices. He would like to be able to take an extra Geodon 20 mg when the voices are worse. Yesterday he had a few hours of worsening voices. He is not worth it and to kill himself. He said that he had suicidal ideations and felt that it was not safe. He had them take him to the emergency room and he was admitted. He says that the voices are still worse than usual today and he would like to take some extra Geodon. Below is his most recent outpatient visit with his psychiatrist from May 06, 2021. Psychiatry SOAP Note Diagnosis (1) Schizoaffective disorder, depressive type: Status: Chronic Psychiatry SOAP Note Time In: 16:10 Time Out: 16:24 Subjective Subjective: Patient is here for an office visit. Reports medication adherence to psychotropic medication regimen. Says his overall mood is good. Reports occasional episodes of hearing voices, and says when he hears voices, he feels like he's able to deal with it by telling them to go away. Says this relieves the symptoms. He currently denies command auditory hallucinations. He said he has taken hydroxyzine a couple times for those symptoms as well. Denies visual hallucinations. Reports no problematic acute anxiety at this time. Sleeps through the night; goes to bed around 10:30 to 11 PM, up at 8 or 9 AM; feels rested upon awakening. Sometimes has a little bit of morning sedation, but once he drinks coffee and other caffeinated beverages, his energy level is good through the day. He usually gets up for breakfast at the facility, or has cereal; eats lunch and dinner and reports a good appetite. He denies abnormal movements of his mouth/tongue; head/neck; torso; extremities. He denies side effects related to current psychotropics. Psychosocial: Continues to reside at [facility]. He is not currently working at the [employer], but plans to do so in the future. Says he and his girlfriend are still getting along well; his mother recently drove him and his girlfriend to a local restaurant and paid for their meal. He said it was nice just to be able to talk and get to know each other better. His parents have a home near [place], [place] and he is able to visit them when they are in the area. Nicotine/tobacco: Says he has not smoked in about a month, and is not using any Nicorette products at this time ROS Constitutional: He denies recent night sweats, chills, and fever. Musculoskeletal: His sitting and standing posture are erect. He is ambulatory, unassisted, with a steady gait. Denies recent falls. Pulmonary:Denies productive cough and hemoptysis. GI:Denies recent nausea, vomiting and diarrhea. Objective Objective: MSE: Patient is alert and oriented to person, place, date, and situation. His speech is of regular rate, rhythm, and volume. No pressured speech. Thought process is logical, organized, and not tangential. He describes overall mood as good. Facial affect is relaxed. He currently denies auditory hallucinations. No delusional thinking and no psychotic thought process endorsed during assessment. No response to internal stimuli during assessment. He currently denies thoughts of harming himself and others. Memory is intact for recent and remote events. Patient maintains direct eye contact during the exam and is cooperative. He is appropriately dressed to season and hygiene is fair. Judgment and insight are fair, appropriate to age, developmental status, fund of knowledge, and diagnoses. Staff members Maribel Delatorre LPN and Sathya Caballero LPN have attempted to reach Jo, the nurse at [facility], to request that patient's current med list and recent labs be re-faxed to us; previous med list and labs have not been readable when received via fax from their facility. The staff member has not been available, even with [facility] staff members' repeated attempts to reach her. On 05/10/2021: I called and spoke directly with Jo at [facility]; she is to re-fax the requested information, noted above. She was given our fax number. Assesment & Plan Assessment: Patient continues to report mood stability with minimal episodes of auditory hallucinations, anddenies side effects related to psychotropic medication regimen. Plan: #1 Continue quetiapine 300 mg daily at bedtime; he has a current prescription with refills. #2 Continue Depakote 500 mg twice daily; he has a current prescription with refills. #3 Continue bupropion hcl XL 150 mg tablet once daily every morning; he has a current prescription with refills. #4 Continue hydroxyzine 25 mg one capsule every 4-6 hours, if needed for anxiety/agitation; he has a current prescription with refills. #5 Continue Geodon 40 mg twice daily with meal/snack of at least 350 aria; he has a current prescription with refills. #6 continue individual psychotherapy, PSR and CPRC as directed. #7 follow with PCP and consulting providers as necessary for medical issues. #8 Follow-up office visit in 8 weeks. Call with questions or concerns. Harvey Frausto Who leaving him. Admitted through our emergency department with the following report: HPI narrative: HPI: [30]yo patient w/ hx of depression BIBA for suicidal ideation. Patient tells me her mother and her ex both recently. She has not been able to restart her medicine because of insurance reasons. On arrival, the patient is AAOx3 and cooperative with my evaluation. No focal complaints of chest pain, shortness of breath, palpitations, N/V, focal GI/ complaints. Denies HI. No complaints of hallucinations. Onset: chronic x 1 month He was discharged from the neuropsychiatry unit in February with the following discharge summary: Diagnoses at Discharge Discharge Diagnosis (1) Bereavement: Status: Acute Reason for Visit Reason for Visit: Hallucations SI Brief History: History of Present Illness Real Black is a 30 year old male who presented to the emergency department with the following report: Chief complaint: Psychiatric Symptoms Stated complaint: Hallucations SI Time Seen by Provider: 03/08/21 23:29 History of Present Illness: HPI narrative: HPI: [30]yo patient w/ hx of depression BIBA for suicidal ideation and hearing voices for On arrival, the patient is AAOx3 and cooperative with my evaluation. No focal complaints of chest pain, shortness of breath, palpitations, N/V, focal GI/ complaints. +SI for 10 hrs. Patient reports plans to hang himself. No complaints of hallucinations. Onset: chronic Duration: ongoing Location: home Severity: severe. He was admitted to the neuropsychiatric unit for definitive treatment of those issues. He presented today reporting that he had been doing better and taking his medications but then his grandfather and it seemed that things have spiraled out of control. He went to the and it seems like after that things went downhill he started experiencing more auditory hallucinations and everything just became too overwhelming for him and his as an outpatient. He reports that he is prediabetic and he wants to make sure that he is managing that well additionally. We discussed the risk-benefit alternatives of continuing his current medications and medication adjustment after talking to his outpatient team who has been quite consistent with since discharge and he understood and agreed proceed as documented in his note. There have been no substantive changes in social circumstances since then an excerpt of his last discharge summary from November is included below for context. Per his 12/17/2020 [facility] inpatient psychiatric discharge summary: Discharge Diagnosis (1) Suicidal ideation: Status: Resolved (2) Schizoaffective disorder, depressive type: Status: Chronic (3) Adverse drug reaction: Status: Resolved (4) Adverse drug reaction: Status: Acute Reason for Visit Reason for Visit: SI Brief History: History of Present Illness Real Black is a 30 year old male who presented to the emergency department with the following report: Chief Complaint: Psychiatric Symptoms Stated Complaint: SI Time Seen by Provider: 12/14/20 23:40 Source: patient Mode of arrival: ambulatory Limitations: no limitations History of Present Illness: HPI Narrative: Patient is a 30-year-old male who presents to ED today with a complaint of auditory hallucinations and suicidal ideations. Patient tells me he was at NPU last month for hallucinations and states they adjusted some of his medications. He feels like the hallucinations are slightly improved but are still telling him to harm himself. He has no specific plan to kill himself. He does have a previous suicide attempt years ago . He is not homicidal. He is not having any visual hallucinations. He denies drug or alcohol use. MD complaint: suicidal ideation and other (Auditory hallucinations) Duration: constant History of same: Yes Context: new medication(s) Associated psychiatric symptoms: depression, suicidal ideation and auditory hallucinations Associated symptoms: Reports auditory hallucinations, depression and suicidal ideation; Deny visual hallucinations or homicidal ideation Treatments prior to arrival: none If self harm: admits thoughts of self harm. He was admitted to the neuropsychiatric unit for definitive treatment of those issues. Patient presents today reporting that he was really struggling with side effects to the medication and was thought that Seroquel was the culprit. He reports that the Seroquel was discontinued and the Risperdal which was started at 1 mg twice a day at his October hospitalization here by this journalists and other writers was ultimately increased to 8 mg daily in divided doses. Over the time since those changes he has had significant EPS with cognitive slowing, stiffness, feeling like he cannot speak like his tongue is full and has felt fairly bad. And a response to this in his interactions with his outside providers but just cut his Risperdal in half taking away the previous nighttime dose of 4 mg. He is now on 2 mg twice a day. We discussed the risk benefits and alternatives of making sure he was getting Cogentin with his Risperdal and he reports that he has had success with Cogentin and he understood agreed to proceed as documented in his note. He denies substantive changes otherwise and an excerpt from his 11/05/2020 hospitalization is included below for context. Hospital Course Hospital Course He slowly acclimated to the individual, group and milieu therapies provided. He was continued on his outpatient medication of Synthroid 100 mcg daily, Seroquel 300 mg at bedtime, Geodon 40 mg twice a day. Wellbutrin was continued at 100 mg every morning but changed to 150 mg upon discharge. He tolerated these doses and showed steady improvement during his stay. He was able to contract for safety outside hospital prior to discharge. During the hospitalization, patient had routine laboratory studies which were within normal limits except for few outliers. Additionally there was a general medical evaluation which was also within normal limits and revealed no new acute processes. Discharge Summary: At the time of discharge, lethality was denied and psychosis was resolving. Mood and anxiety were well managed. Patient endorsed a plan to follow-up with the aftercare recommendations of the treatment team. Patient was evaluated and deemed to be absent credible lethality, and had achieved the maximum benefit from an inpatient hospitalization, so was discharged. Meds NPU Home Medications Medication Instructions Recorded Confirmed Last Taken Type acetaminophen 500 mg tablet 1,000 mg PO Q6H PRN 08/03/20 05/11/21 11/04/20 09:00 History metoprolol succinate 25 mg PO DAILY 12/15/20 05/11/21 01/31/21 History omeprazole 20 mg capsule,delayed 20 mg PO DAILY 12/21/20 05/11/21 01/31/21 History release levothyroxine [Levoxyl] 100 mcg PO DAILY #0 tab 03/12/21 05/11/21 Unknown Rx lisinopril 10 mg PO DAILY #0 tab 03/12/21 05/11/21 Unknown Rx bupropion HCl 150 mg 24 hr tablet, 150 mg PO DAILY #30 tab 04/08/21 05/11/21 Unknown Rx extended release divalproex 500 mg tablet,extended 500 mg PO BID #60 tab 04/08/21 05/11/21 Unknown Rx release 24 hr quetiapine 300 mg tablet 300 mg PO BEDTIME #30 tab 04/08/21 05/11/21 Unknown Rx ziprasidone HCl 40 mg capsule 40 mg PO BID #60 cap 04/08/21 05/11/21 Unknown Rx ibuprofen 100 mg tablet 800 mg PO TID PRN tab 05/10/21 05/11/21 Unknown History hydroxyzine pamoate 25 mg PO TID PRN 05/11/21 05/11/21 Unknown History naproxen 500 mg PO BID PRN 05/11/21 05/11/21 Unknown History quetiapine [Seroquel] 100 mg PO DAILY PRN 05/11/21 05/11/21 Unknown History Allergies Allergy/AdvReac Type Severity Reaction Status Date / Time chlorpromazine Allergy Severe ALGY-Anaphy Verified 05/11/21 00:17 laxis haloperidol [From Haldol] Allergy Severe ALGY-Swell Verified 05/11/21 00:17 Lip/Tongue/Throat lurasidone [From Latuda] Allergy Severe ALGY-Swell Verified 05/11/21 00:17 Lip/Tongue/Throat olanzapine [From Zyprexa] Allergy Severe ALGY-Swell Verified 05/11/21 00:17 Lip/Tongue/Throat PFSH NPU PFSH: Medical History Depressive disorder Hallucination Psychiatric care Schizoaffective disorder, depressive type Family History Other Diabetes Hypertension Schizoaffective disorder, depressive type Social History Smoking and tobacco status: former smoker Quit status (tobacco): has quit using tobacco Year quit tobacco: 10/21/2020 Former quit date comment: patient had been smoking for 10 years Second hand smoke exposure: Yes Alcohol intake: never Adopted: No Caregiver/support person: Yes Lives independently: No (Staying at [facility]) Household members: other Details: Multiple other residents at the facility. 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 Current occupational exposures/hazards: No Pets and animals: Yes Pets & animals: cat(s) History of recent travel: Yes (Just moved here from [place] in March.) Out of state: Yes Out of country: No Leisure activites: exercise, music, games and other Leisure activities details: watch TV Sexually active: No Current gender identity: Male Paola/Nondenominational: None Special paola needs: No Agree to transfusion: Yes Financial difficulty paying for basics: Not Very Hard Mental Status Exam MSE Comments: This is a 30-year-old overweight male who appears approximately his stated age and is in no acute distress. He was found in bed at 840 in the morning and was somewhat difficult to arouse. He is dressed in hospital scrubs with fair grooming psychomotor activity mildly decreased but probably normal for someone who was just given up. Speech is at a regular rate and rhythm, normal volume, good articulation, not pressured. Alert, oriented X2 Attention and concentration appears to be average. Memory is intact Mood is depressed. Affect is mildly dysphoric. Thought process is logical and goal-directed. Thought content: Denies auditory and visual hallucinations. No delusions or paranoia are noted. No current suicidal ideation, and no homicidal ideation. Fund of knowledge is diminished. Insight and judgment appear to be fair. Impulse control is limited. Vitals/I&O/Wt Last Vital Signs Temp 98.7 F 05/11/21 05:39 Pulse 93 05/11/21 05:39 Resp 17 05/11/21 05:39 BP 123/80 05/11/21 05:39 Pulse Ox 99 05/11/21 05:39 Weight last 48 hrs Weight 99.79 kg Data NPU : 05/11/21 00:20 05/11/21 00:20 A&P Assessment and plan (1) Hallucination: Status: Acute (2) Suicide ideation: Status: Acute (3) Schizoaffective disorder, depressive type: Status: Chronic Additional A&P Information This is a 30-year-old male with schizoaffective disorder who was admitted because of worsening voices and suicidal ideation Plan: 1. Continue current medication. Add Geodon 20 mg as needed once a day. 2. Continue every 15 minute checks for safety. 3. Encourage individual, group and milieu therapies. 4. Encourage sober living treatment after discharge at the highest level of care to which he is willing to commit. 5. We will monitor for safety for himself in the community prior to discharge. Involuntary Hold Information 96 Hour Hold: 96 Hour Involuntary Admission: No Attestations NPU Medical Necessity Statement*: Inpatient hospitalization is medically necessary and the clinically appropriate intervention at this time. We will initiate medications and make changes as indicated. He will be in the hospital for over 2 midnights. Likely length of stay 4-6 days Coding Level of Care Code Acute Adoption Worker for Keny Ying Diagnoses Hallucination R44.3 Suicide ideation R45.851 Schizoaffective disorder, depressive type F25.1
[2021-05-11] MEDS: ziprasidone hcl 20 mg Capsule PO (11:05)
[2021-05-11] MEDS: ondansetron 4 MG Tablet PO (16:25)
[2021-05-11] MEDS: hyDROXYzine 25 mg Capsule 50 MG PO (20:54)
[2021-05-11] MEDS: trazodone 50 mg Tablet PO (20:54)
[2021-05-11] MEDS: quetiapine 300 mg Tablet PO (20:55)
--- NOTE | 2021-05-12 00:58 | PC.NURSE ---
PRN Administration Patient c/o hearing voices, anxiety, and having trouble sleeping. Given PRN trazodone and hydroxyzine PO as ordered with noted effectiveness.
[2021-05-12 06:00] VITALS: BP 117/76; PULSE 96; RESP 20; TEMP 36.5; O2SAT 94
[2021-05-12] MEDS: ibuprofen 800 mg tablet PO (08:04)
[2021-05-12] MEDS: pantoprazole DR 40 mg Tablet PO (08:04)
[2021-05-12] MEDS: metoprolol succinate ER (24 HR) 25 mg Tablet PO (08:05)
[2021-05-12] MEDS: divalproex ER 500 mg Tablet (24H) PO ×2 (08:05→17:04)
[2021-05-12] MEDS: levothyroxine 100 mcg Tablet PO (08:05)
[2021-05-12] MEDS: quetiapine 100 mg Tablet PO (08:05)
[2021-05-12] MEDS: ziprasidone hcl 40 mg Capsule PO ×2 (08:05→17:04)
[2021-05-12] MEDS: buPROPion XL (24 HR) 150 mg Tablet PO (08:05)
[2021-05-12] MEDS: nicotine 2 mg Gum BUCCAL ×3 (08:05→17:04)
[2021-05-12] MEDS: lisinopril 10 mg Tablet PO (08:05)
--- NOTE | 2021-05-12 08:14 | P.NPUPN_ITS ---
Subjective NPU Subjective: Interval history: He says that he is doing fairly well today. He slept well last night. He says that he did not take the extra Geodon 20 mg yesterday morning and it was helpful for the increased hallucinations. He says that his hallucinations are not increased today. He said that he has not had any suicidal ideation since yesterday. He feels like he will be ready to go home tomorrow if today is a good day. Mental Status Exam MSE Comments: This is a 30-year-old overweight male who appears approximately his stated age and is in no acute distress. He was found affect the nurses station at 740 in the morning. He is dressed in hospital scrubs with fair grooming psychomotor activity is normal. Speech is at a regular rate and rhythm, normal volume, good articulation, not pressured. Alert, oriented X3 Attention and concentration appears to be average. Memory is intact Mood is good. Affect is euthymic. Thought process is logical and goal-directed. Thought content: Denies auditory and visual hallucinations. No delusions or paranoia are noted. No current suicidal ideation, and no homicidal ideation. Fund of knowledge is diminished. Insight and judgment appear to be fair. Impulse control is limited. Cognition: Patient Appearance: Disheveled/Poor Hygiene Level of Consciousness: Drowsy Patient Cognition Impaired: No Ability to Follow Directions: Excellent Patient Orientation (long list): Person, Place, Time, Name and Age Comprehension Ability: No Impairment Hallucination Type: None Delusion Description: Persecutory Thought Process: Appropriate Affect: Affect Description: Appropriate Depressive Symptoms: Difficulty Concentrating, Feelings of Worthlessness, Hopelessness and Low Self Esteem Behavior: Patient Behavior: Appropriate Speech Pattern: Appropriate Vitals/I&O/Wt Last Vital Signs Temp 97.7 F 05/12/21 06:00 Pulse 96 05/12/21 06:00 Resp 20 H 05/12/21 06:00 BP 117/76 05/12/21 06:00 Pulse Ox 94 05/12/21 06:00 Weight last 48 hrs Weight 99.79 kg Data NPU : 05/11/21 00:20 05/11/21 00:20 A&P Assessment and plan (1) Hallucination: Status: Acute (2) Suicide ideation: Status: Acute (3) Schizoaffective disorder, depressive type: Status: Chronic Additional A&P Information This is a 30-year-old male with schizoaffective disorder who was admitted because of worsening voices and suicidal ideation Plan: 1. Continue current medication. Add Geodon 20 mg as needed once a day. 2. Continue every 15 minute checks for safety. 3. Encourage individual, group and milieu therapies. 4. Encourage sober living treatment after discharge at the highest level of care to which he is willing to commit. 5. We will monitor for safety for himself in the community prior to discharge. Involuntary Hold Information 96 Hour Hold: 96 Hour Involuntary Admission: No Attestations NPU Medical Necessity Statement*: Inpatient hospitalization is medically necessary and the clinically appropriate intervention at this time. We will initiate medications and make changes as indicated. Coding Level of Care Code Acute Child Development Director for Keny Ying Diagnoses Hallucination R44.3 Suicide ideation R45.851 Schizoaffective disorder, depressive type F25.1
[2021-05-12] MEDS: hyDROXYzine 25 mg Capsule PO (13:24)
[2021-05-12 14:00] VITALS: BP 109/69; PULSE 97; RESP 20; TEMP 36.6; O2SAT 98
[2021-05-12] MEDS: hyDROXYzine 25 mg Capsule 50 MG PO (21:18)
[2021-05-12] MEDS: quetiapine 300 mg Tablet PO (21:18)
[2021-05-12 21:44] VITALS: BP 108/68; PULSE 96; RESP 18; TEMP 36.7; O2SAT 97
[2021-05-13] MEDS: acetaminophen 500 mg Tablet 1000 MG PO (01:11)
--- NOTE | 2021-05-13 01:40 | PC.NURSE ---
PRN Administration patient c/o anxietyu , givne PRN hydroxyzine PO at HS with noted effectiveness. Patient got up at approx 120 c/o pain in neck and shoulder, gieven PRN tylenol PO as ordered with noted effectiveness.
[2021-05-13 06:00] VITALS: BP 115/76; PULSE 95; RESP 20; TEMP 36.4; O2SAT 98
--- NOTE | 2021-05-13 07:11 | P.NPUDS_ITS ---
Diagnoses at Discharge Discharge Diagnosis (1) Hallucination: Status: Acute (2) Suicide ideation: Status: Acute (3) Schizoaffective disorder, depressive type: Status: Chronic Reason for Visit Reason for Visit: SI Brief History: HPI NPU History of Present Illness Real Black is a 30 year old male who was admitted through the emergency department with the following report: HPI Narrative: 22-year-old male has an extensive psychiatric history with schizoaffective disorder and depression. He states he has been hearing voices again over the last 1 to 2 hours and is having suicidal thoughts he has no specific plan he states he feels like he needs help and admitted to psych unit. Denies any suicide attempts. Denies any worsening improving factors. Associated symptoms: Reports auditory hallucinations and suicidal ideation He was admitted for definitive treatment of these issues. He says that he has b een doing well up until yesterday. He has been getting along well with his girlfriend. He says that they will have their 1 year anniversary on May 19. Neither one of them have money currently and they will save money from their check at 25 May and celebrate their anniversary on . They will go to [facility]. His girlfriend lives at the facility with him. He says that he has previously asked his psychiatrist if he can take as needed medications when he has worsening voices. He says that the psychiatrist said that he is already on the Depakote and that would be too much. He does have Vistaril 25 mg to take as needed but that does not help with voices. He would like to be able to take an extra Geodon 20 mg when the voices are worse. Yesterday he had a few hours of worsening voices. He is not worth it and to kill himself. He said that he had suicidal ideations and felt that it was not safe. He had them take him to the emergency room and he was admitted. He says that the voices are still worse than usual today and he would like to take some extra Geodon. Hospital Course Hospital Course He slowly acclimated to the individual, group and milieu therapies provided. He was continued on his outpatient medications but he was allowed to take Geodon 20 mg during the day as needed which he felt was beneficial. He only did that one time. He tolerated these doses and showed steady improvement during his stay. He was able to contract for safety outside hospital prior to discharge. During the hospitalization, patient had routine laboratory studies which were within normal limits except for few outliers. Additionally there was a general medical evaluation which was also within normal limits and revealed no new acute processes. Discharge Summary: At the time of discharge, lethality was denied and psychosis was resolving. Mood and anxiety were well managed. Patient endorsed a plan to follow-up with the aftercare recommendations of the treatment team. Patient was evaluated and deemed to be absent credible lethality, and had achieved the maximum benefit from an inpatient hospitalization, so was discharged. Involuntary Hold Information 96 Hour Hold: 96 Hour Involuntary Admission: No Mental Status Exam MSE Comments: This is a 30-year-old overweight male who appears approximately his stated age and is in no acute distress. He was found affect the nurses station at 710 in the morning. He is dressed in hospital scrubs with fair grooming psychomotor activity is normal. Speech is at a regular rate and rhythm, normal volume, good articulation, not pressured. Alert, oriented X3 Attention and concentration appears to be average. Memory is intact Mood is good. Affect is euthymic. Thought process is logical and goal-directed. Thought content: Denies auditory and visual hallucinations. No delusions or paranoia are noted. No current suicidal ideation, and no homicidal ideation. Fund of knowledge is diminished. Insight and judgment appear to be fair. Impulse control is limited. Cognition: Patient Appearance: Disheveled/Poor Hygiene Level of Consciousness: Drowsy Patient Cognition Impaired: No Ability to Follow Directions: Excellent Patient Orientation (long list): Person, Place, Time, Name and Age Comprehension Ability: No Impairment Hallucination Type: None Delusion Description: Persecutory Thought Process: Appropriate Affect: Affect Description: Appropriate Depressive Symptoms: Difficulty Concentrating, Feelings of Worthlessness, Hopelessness and Low Self Esteem Behavior: Patient Behavior: Appropriate Speech Pattern: Appropriate Discharge Data Vitals: Last Vital Signs Temp 97.6 F 05/13/21 06:00 Pulse 95 05/13/21 06:00 Resp 20 H 05/13/21 06:00 BP 115/76 05/13/21 06:00 Pulse Ox 98 05/13/21 06:00 Discharge Plan Discharge Patient Disposition: Home Condition: Stable Prescriptions: New ziprasidone HCl 20 mg Capsule 20 mg PO DAILY PRN (Reason: Hallucinations) 30 Days Qty: 30 RF: 0 Continued omeprazole 20 mg capsule,delayed release(DR/EC) 20 mg PO DAILY RF: 0 bupropion HCl 150 mg tablet extended release 24 hr 150 mg PO DAILY Qty: 30 RF: 2 divalproex [Depakote ER] 500 mg tablet extended release 24 hr 500 mg PO BID Qty: 60 RF: 2 quetiapine 300 mg tablet 300 mg PO BEDTIME Qty: 30 RF: 2 ziprasidone HCl 40 mg capsule 40 mg PO BID Qty: 60 RF: 2 acetaminophen [Tylenol Extra Strength] 500 mg tablet 1,000 mg PO Q6H PRN (Reason: Pain) RF: 0 ibuprofen 100 mg tablet 800 mg PO TID PRN (Reason: Pain) RF: 0 Seroquel 100 mg Tablet 100 mg PO DAILY PRN (Reason: Agitation) RF: 0 naproxen 500 mg Tablet 500 mg PO BID PRN (Reason: Pain) RF: 0 hydroxyzine pamoate 25 mg capsule 25 mg PO TID PRN (Reason: Anxiety) RF: 0 metoprolol succinate 25 mg tablet extended release 24 hr 25 mg PO DAILY RF: 0 levothyroxine [Levoxyl] 100 mcg Tablet 100 mcg PO DAILY Qty: 0 RF: 0 lisinopril 10 mg Tablet 10 mg PO DAILY Qty: 0 RF: 0 Discharge Orders: Discharge Order (Routine); Ordered 05/13/21 Ordered By: Rupert Guzman Referrals: [facility] [Other] - 05/17/21 1:00 pm (Therapy with Mary Baires) Patria Mckinney APRN [Nurse Practitioner] - 07/01/21 4:00 pm Sp Flowers MD [Primary Care Provider] - Discharge Diet: Regular Discharge Activity: Resume usual activity Patient Instructions: Opioid Safety Discharge Attestations NPU Time Spent in Discharge Care*: less than 30 min Specific Discharge Activities: Specific discharge activities: educating patient, discussing with director of casework services/social workers/dc planners, documenting/other paperwork and evaluating patient/reviewing data Status at Discharge: Cognitive status at discharge: cognitively intact , Behavioral status at discharge: cooperative , Coding Level of Care Code Acute [facility] DC note Diagnoses Hallucination R44.3 Suicide ideation R45.851 Schizoaffective disorder, depressive type F25.1
[2021-05-13] MEDS: nicotine 2 mg Gum BUCCAL ×2 (07:34→10:12)
[2021-05-13 08:53] VITALS: BP 115/76; PULSE 95; RESP 20; TEMP 36.4; O2SAT 98
--- NOTE | 2021-05-13 10:01 | DCPLANNER ---
IMM completed at 05/13/21 @ [id number]. Pt was given a copy of rights and he stated he understands his rights.
[2021-05-13] MEDS: levothyroxine 100 mcg Tablet PO (10:11)
[2021-05-13] MEDS: pantoprazole DR 40 mg Tablet PO (10:11)
[2021-05-13] MEDS: divalproex ER 500 mg Tablet (24H) PO (10:11)
[2021-05-13] MEDS: lisinopril 10 mg Tablet PO (10:12)
[2021-05-13] MEDS: buPROPion XL (24 HR) 150 mg Tablet PO (10:12)
[2021-05-13] MEDS: ziprasidone hcl 40 mg Capsule PO (10:12)
[2021-05-13] MEDS: metoprolol succinate ER (24 HR) 25 mg Tablet PO (10:12)
== END 2021-05-13 11:05 | disposition home or self-care (01) | DRG 885 ==
LOC: ER 01:14 → NP 01:22
PROVIDERS: Admitting Provider Psychiatry & Neurology Psychiatry; Emergency Provider Emergency Medicine; PCP Family Medicine; Visit Provider Psychiatry & Neurology Psychiatry
DX: F25.1 Schizoaffective disorder, depressive type (principal); R45.851 Suicidal ideations; F32.A Depression, unspecified; Z87.891 Personal history of nicotine dependence
CPT/HCPCS: 80053; 80164; 80306; 80307; 85025; 97150; 97165; 99285; Q0162

== ENCOUNTER → 2021-06-03 15:06 | Outpatient (BNVA) | payer MEDICARE, MEDICAID, SELFPAY ==
[2020-12-11 11:23] VITALS: BP 133/83; BMI 32.1
== END ==
PROVIDERS: PCP Family Medicine; Visit Provider Nurse Practitioner Psychiatric/Mental Health
DX: F25.1 Schizoaffective disorder, depressive type (principal)
CPT/HCPCS: 99213

== ENCOUNTER 2021-06-07 22:54 | Inpatient (IN) | payer MEDICARE, MEDICAID, SELFPAY ==
[2020-12-11 11:23] VITALS: BP 133/83; BMI 32.1
--- NOTE | 2021-06-07 23:07 | W.ED.PSYCHS ---
HPI - Psych General: Chief Complaint: Psychiatric Symptoms Stated Complaint: SI/HI Time Seen by Provider: 06/07/21 23:07 Source: patient and EMS Mode of arrival: EMS Limitations: no limitations History of Present Illness: 30-year-old male who has a long history of psychiatric issues states that over the last 2 to 3 days has been having suicidal thoughts with some homicidal thoughts over the last day. He states he has no specific plan but since his med adjustments he just been having increased depression and suicidality. He states he feels like he needs to be admitted to get help denies any drug or alcohol use denies any worsening improving factors. Associated symptoms: Reports homicidal ideation and suicidal ideation Review of Systems Const: Denies: fever(s), chills, body aches or change in appetite Eyes: Denies: blurry vision or eye discomfort ENMT: Denies: throat pain or dental pain Card: Denies: chest pain Resp: Denies: dyspnea GI: Denies: abdominal pain, nausea, vomiting or diarrhea : Denies: dysuria Musc: Denies: neck pain or back pain Skin/Breast: Denies: rash Neuro: Denies: headache(s) Psych: Reports: suicidal ideation and homicidal ideation Jameson/Lymph: Denies: easy bruising All/Imm: Denies: urticaria PFSH ED PFSH: Medical History Depressive disorder Hallucination Psychiatric care Schizoaffective disorder, depressive type Family History Other Diabetes Hypertension Schizoaffective disorder, depressive type Social History Smoking and tobacco status: former smoker Quit status (tobacco): has quit using tobacco Year quit tobacco: 10/21/2020 Former quit date comment: patient had been smoking for 10 years Second hand smoke exposure: Yes Alcohol intake: never Adopted: No Caregiver/support person: Yes Lives independently: No ([facility] Household members: other Details: Multiple other residents at the facility. 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 Current occupational exposures/hazards: No Pets and animals: Yes Pets & animals: cat(s) History of recent travel: Yes (Just moved here from [place] in March.) Out of state: Yes Out of country: No Leisure activites: exercise, music, games and other Leisure activities details: watch TV Sexually active: No Current gender identity: Male Paola/Rastafari: None Special paola needs: No Agree to transfusion: Yes Financial difficulty paying for basics: Not Very Hard Physical Exam Const: COMMON NORMALS: no acute distress, patient oriented x3 and healthy appearing HENMT: COMMON NORMALS: normocephalic and atraumatic HEAD & SCALP: normocephalic and atraumatic Eye: COMMON NORMALS: Equal, round and reactive pupils present and EOMs intact bilaterally PUPIL: Yes Equal, round and reactive pupils present Neck/C-Spine: COMMON NORMALS: full ROM and supple Chest: COMMONS NORMALS: normal inspection of the chest and normal palpation of entire chest wall Resp: COMMON NORMALS: normal respiratory effort, No retractions, No use of accessory muscles and clear to auscultation bilaterally AUSCULTATION: clear to auscultation bilaterally Cardio: COMMON NORMALS: regular rate, regular rhythm and No murmurs present (Cardio) RATE: regular rate RHYTHM: regular rhythm GI: COMMON NORMALS: Normal to inspection, nondistended, normoactive bowel sounds present, Soft to palpation, non-tender and no masses PALPATION: Yes Soft to palpation Extremity: COMMON NORMALS: normal to inspection and full ROM Neuro: COMMON NORMALS: patient oriented x3, moves all extremities and no focal motor deficits Psych: COMMON NORMALS: mental status grossly normal, Normal thought process present and cooperative THOUGHT PROCESS: Normal thought process present THOUGHT CONTENT: Yes Suicidality present and Yes Homicidality present Skin: COMMON NORMALS: no rashes or lesions noted and no wounds GENERAL SKIN EXAM: no rashes or lesions noted Course Vital Signs: Vital signs: Vital Signs Temperature 97.9 F 06/07/21 23:13 Pulse Rate 93 06/07/21 23:13 Respiratory Rate 18 06/07/21 23:13 Blood Pressure 135/89 06/07/21 23:13 Pulse Oximetry 97 06/07/21 23:13 [facility] - Psych Medical Decision Making Patient presents for suicidal ideation he is voluntarily wanting to get admitted he is well-appearing here medically cleared I spoke to psychiatrist and will admit the psychiatric unit. Lab Data : 06/07/21 23:19 06/07/21 23:19 Laboratory Results WBC 7.5 10^3/uL (4.0-10.0) 06/07/21 23:19 RBC 4.80 10^6/uL (4.1-5.3) 06/07/21 23:19 Hgb 14.6 g/dL (11.7-16.6) 06/07/21 23:19 Hct 43.4 % (42.0-52.0) 06/07/21 23:19 MCV 90.4 fl (80-94) 06/07/21 23:19 MCH 30.4 pg (28.0-34.0) 06/07/21 23:19 MCHC 33.6 g/dL (30.0-36.0) 06/07/21 23:19 RDW 12.9 % (12.1-15.1) 06/07/21 23:19 Plt Count 229 10^3/cmm (130-400) 06/07/21 23:19 MPV 9.8 fL (7.4-10.4) 06/07/21 23:19 Neut % (Auto) 50.1 % 06/07/21 23:19 Lymph % (Auto) 44.2 % 06/07/21 23:19 Warrick % (Auto) 3.6 % 06/07/21 23:19 Eos % (Auto) 1.7 % 06/07/21 23:19 Baso % (Auto) 0.3 % 06/07/21 23:19 Neut # (Auto) 3.73 10^3/uL (1.8-7.7) 06/07/21 23:19 Lymph # (Auto) 3.3 10^3/uL (0.8-4.8) 06/07/21 23:19 Warrick # (Auto) 0.3 10^3/uL (0.2-0.9) 06/07/21 23:19 Eos # (Auto) 0.1 10^3/uL (0.0-0.8) 06/07/21 23:19 Baso # (Auto) 0.0 10^3/uL (0.0-0.1) 06/07/21 23:19 Nucleated RBC % (auto) 0 % 06/07/21 23:19 Nucleated RBCs # 0.0 /100WBC 06/07/21 23:19 Sodium 139 mmol/L (136-145) 06/07/21 23:19 Potassium 3.8 mmol/L (3.5-5.1) 06/07/21 23:19 Chloride 102 mmol/L (98-107) 06/07/21 23:19 Carbon Dioxide 23 mmol/L (22-29) 06/07/21 23:19 Anion Gap 17.8 (5-19) 06/07/21 23:19 BUN 10 mg/dL (6-20) 06/07/21 23:19 Creatinine 0.8 mg/dL (0.7-1.2) 06/07/21 23:19 GFR Calculation 114.3 mL/min (90-130) 06/07/21 23:19 Glucose 111 mg/dL (65-115) 06/07/21 23:19 Calculated Osmolality 288 mOsm/kg (285-295) 06/07/21 23:19 Calcium 9.1 mg/dL (8.5-10.5) 06/07/21 23:19 Total Bilirubin 0.2 mg/dL (0.15-1.2) 06/07/21 23:19 AST 18 U/L (0-40) 06/07/21 23:19 ALT 28 U/L (0-41) 06/07/21 23:19 Alkaline Phosphatase 36 IU/L (40-130) L 06/07/21 23:19 Total Protein 7.2 g/dL (6.6-8.7) 06/07/21 23:19 Albumin 4.8 g/dL (3.5-5.2) 06/07/21 23:19 Globulin 2.4 g/dL (1.3-4.6) 06/07/21 23:19 TSH 1.86 uIU/mL (0.27-4.20) 06/07/21 23:19 Salicylates < 0.3 mg/dL (3-10) L 06/07/21 23:19 Urine Opiates Screen Negative ng/mL (Negative) 06/07/21 23:22 Acetaminophen < 5.0 ug/mL (10-30) L 06/07/21 23:19 Ur Barbiturates Screen Negative ng/mL (Negative) 06/07/21 23:22 Valproic Acid 48.8 ug/mL (50-100) L 06/07/21 23:19 Ur Phencyclidine Scrn Negative ng/mL (Negative) 06/07/21 23:22 Ur Amphetamines Screen Negative ng/mL (Negative) 06/07/21 23:22 U Benzodiazepines Scrn Negative ng/mL (Negative) 06/07/21 23:22 Urine Cocaine Screen Negative ng/mL (Negative) 06/07/21 23:22 U Marijuana (THC) Screen Negative ng/mL (Negative) 06/07/21 23:22 Ethyl Alcohol < 10 mg/dL (0-10) 06/07/21 23:19 Discharge Plan Discharge Condition: Stable Prescriptions: No Action omeprazole 20 mg capsule,delayed release(DR/EC) 20 mg PO DAILY 0RF bupropion HCl 150 mg tablet extended release 24 hr 150 mg PO DAILY Qty: 30 1RF Rx Instructions: Take one tablet by mouth every morning divalproex [Depakote ER] 500 mg tablet extended release 24 hr 500 mg PO BID Qty: 60 1RF Rx Instructions: Take 1 tablet morning and bedtime hydroxyzine pamoate 25 mg capsule 25 mg PO BID PRN (Reason: Anxiety) 0RF Rx Instructions: take one capsule by mouth twice daily, if needed for anxiety quetiapine 300 mg tablet 300 mg PO BEDTIME Qty: 30 1RF Rx Instructions: Take 1 tablet daily at bedtime ziprasidone HCl 40 mg capsule 40 mg PO BID Qty: 60 1RF Rx Instructions: Take 1 capsule twice daily, morning and evening, with snack/meal of at least 350 aria acetaminophen [Tylenol Extra Strength] 500 mg tablet 1,000 mg PO Q6H PRN (Reason: Pain) 0RF metformin 500 mg tablet 500 mg PO BID 0RF Label Comments: on hold cetirizine 10 mg tablet 10 mg PO DAILY PRN0RF tizanidine 4 mg tablet 4 mg PO Q8H PRN0RF melatonin 3 mg tablet 6 mg PO .QHS PRN0RF celecoxib 100 mg capsule 100 mg PO BID PRN0RF cyclobenzaprine 10 mg tablet 10 mg PO BID PRN0RF ziprasidone HCl 20 mg Capsule 20 mg PO DAILY PRN (Reason: Hallucinations) 30 Days Qty: 30 0RF metoprolol succinate 25 mg tablet extended release 24 hr 25 mg PO DAILY 0RF levothyroxine [Levoxyl] 100 mcg Tablet 100 mcg PO DAILY Qty: 0 0RF lisinopril 10 mg Tablet 10 mg PO DAILY Qty: 0 0RF Referrals: Sp Flowers MD [Primary Care Provider] - Coding Level of Care Code ED Bedspread Cutter for Chg Fwd Exam Comprehensive
[2021-06-07 23:13] VITALS: BP 135/89; PULSE 93; RESP 18; TEMP 36.6; O2SAT 97; BMI 32.5
[2021-06-07 23:24] LABS: Basophils % 0.3 %; Eosinophils # 0.1 10^3/uL (0.0-0.8); Eosinophils % 1.7 %; Hematocrit 43.4 % (42.0-52.0); Hemoglobin 14.6 g/dL (11.7-16.6); Lymphocytes # 3.3 10^3/uL (0.8-4.8); Lymphocytes % 44.2 %; Mean Corpuscular HGB Conc 33.6 g/dL (30.0-36.0); Mean Corpuscular Hemoglobin 30.4 pg (28.0-34.0); Mean Corpuscular Volume 90.4 fl (80-94); Mean Platelet Volume 9.8 fL (7.4-10.4); Monocytes # 0.3 10^3/uL (0.2-0.9); Monocytes % 3.6 %; Neutrophils # 3.73 10^3/uL (1.8-7.7); Neutrophils % 50.1 %; Nucleated Red Blood Cells % 0 %; Platelet Count 229 10^3/cmm (130-400); Red Cell Distribution Width 12.9 % (12.1-15.1); White Blood Count 7.5 10^3/uL (4.0-10.0)
[2021-06-07 23:47] LABS: Amphetamines Screen Urine Negative (Negative); Barbiturates Screen Urine Negative (Negative); Benzodiazepines Screen Urine Negative (Negative); Cocaine Screen Urine Negative (Negative); Opiate Screen Urine Negative (Negative); PCP Screen Urine Negative (Negative); THC Screen Urine Negative (Negative)
[2021-06-07 23:48] LABS: Valproic Acid Level 48.8 ug/mL (50-100)
[2021-06-07 23:57] LABS: Alanine Aminotransferase 28 U/L (0-41); Albumin Level 4.8 g/dL (3.5-5.2); Alkaline Phosphatase 36 IU/L (40-130); Anion Gap 17.8 (5-19); Aspartate Amino Transferase 18 U/L (0-40); Blood Urea Nitrogen 10 mg/dL (6-20); Calcium 9.1 mg/dL (8.5-10.5); Carbon Dioxide 23 mmol/L (22-29); Chloride 102 mmol/L (98-107); Globulin 2.4 g/dL (1.3-4.6); Glomerular Filtration Rate 114.3 mL/min (90-130); Glucose 111 mg/dL (65-115); Osmolality Calculated 288 mOsm/kg (285-295); Potassium 3.8 mmol/L (3.5-5.1); Sodium 139 mmol/L (136-145); Thyroid Stimulating Hormone 1.86 uIU/mL (0.27-4.20); Total Bilirubin 0.2 mg/dL (0.15-1.2); Total Protein 7.2 g/dL (6.6-8.7)
[2021-06-07 23:58] LABS: Acetaminophen < 5.0 ug/mL (10-30); Alcohol Level < 10 mg/dL (0-10); Salicylate < 0.3 mg/dL (3-10)
[2021-06-08 00:28] VITALS: BP 117/82; PULSE 110; RESP 20; TEMP 36.8; O2SAT 99
[2021-06-08] MEDS: acetaminophen 325 mg Tablet 650 MG PO (00:44)
[2021-06-08] MEDS: nicotine 2 mg Gum BUCCAL ×4 (01:05→20:48)
[2021-06-08 06:00] VITALS: BP 122/70; PULSE 99; RESP 26; TEMP 36.7; O2SAT 95
--- NOTE | 2021-06-08 08:56 | PC.OT ---
OT EVALUATION ATTEMPTED. PATIENT IS SLEEPING SOUNDLY; SNORING AND DOES NOT AWAKEN. WILL ATTEMPT AGAIN AT A LATER TIME.
[2021-06-08] MEDS: buPROPion XL (24 HR) 150 mg Tablet PO (09:16)
[2021-06-08] MEDS: lisinopril 10 mg Tablet PO (09:16)
[2021-06-08] MEDS: ziprasidone hcl 40 mg Capsule PO ×2 (09:16→17:57)
[2021-06-08] MEDS: metoprolol succinate ER (24 HR) 25 mg Tablet PO (09:16)
[2021-06-08] MEDS: divalproex ER 500 mg Tablet (24H) PO ×2 (09:16→17:57)
[2021-06-08] MEDS: levothyroxine 100 mcg Tablet PO (09:16)
[2021-06-08] MEDS: pantoprazole DR 40 mg Tablet PO (09:16)
--- NOTE | 2021-06-08 11:14 | P.NPUHP_ITS ---
Providers/Chief Complaint Admitting Physician: Rupert Guzman MD Primary Care Provider: Sp Flowers MD Chief Complaint: SI/HI HPI NPU History of Present Illness Real Black is a 30 year old male who was admitted to our emergency department with the following report: 30-year-old male who has a long history of psychiatric issues states that over the last 2 to 3 days has been having suicidal thoughts with some homicidal thoughts over the last day.? He states he has no specific plan but since his med adjustments he just been having increased depression and suicidality.? He states he feels like he needs to be admitted to get help denies any drug or alcohol use denies any worsening improving factors. Associated symptoms: Reports homicidal ideation and suicidal ideation He was admitted to the neuropsychiatry unit for definitive treatment for these issues. He says that he has been doing well. He had a anniversary outing with his girlfriend at [facility] as he told me he was going to do at the last admission. He said that went great. He and his girlfriend continue to get along very well. He says that she is very supportive. He saw his outpatient psychiatrist on June 03 and was doing well at that time no medication changes were made. Very soon after that he started getting more depressed and hearing more auditory hallucinations. He has started having suicidal ideations and even some homicidal ideations. He brought himself to the emergency room because he felt that he was no longer safe. He would like to increase his Geodon up to 60 mg twice a day. He also asked about the Wellbutrin if that could be increased. He has been on 150 mg for quite some time. He agreed to increase that to 300 mg. He was recently admitted here with the following discharge summary: Reason for Visit:?? SI? Brief History: HPI NPU History of Present Illness Real Black is a 30 year old male who was admitted through the emergency department with the following report: HPI Narrative: 22-year-old male has an extensive psychiatric history with sc hizoaffective disorder and depression. He states he has been hearing voices again over the last 1 to 2 hours and is having suicidal thoughts he has no specific plan he states he feels like he needs help and admitted to psych unit. Denies any suicide attempts. Denies any worsening improving factors. Associated symptoms: Reports auditory hallucinations and suicidal ideation He was admitted for definitive treatment of these issues.? He says that he has been doing well up until yesterday.? He has been getting along well with his girlfriend.? He says that they will have their 1 year anniversary on May 19.? Neither one of them have money currently and they will save money from their check at 25 May and celebrate their anniversary on .? They will go to [facility].? His girlfriend lives at the facility with him.? He says that he has previously asked his psychiatrist if he can take as needed medications when he has worsening voices.? He says that the psychiatrist said that he is already on the Depakote and that would be too much.? He does have Vistaril 25 mg to take as needed but that does not help with voices.? He would like to be able to take an extra Geodon 20 mg when the voices are worse.? Yesterday he had a few hours of worsening voices.? He is not worth it and to kill himself.? He said that he had suicidal ideations and felt that it was not safe.? He had them take him to the emergency room and he was admitted.? He says that the voices are still worse than usual today and he would like to take some extra Geodon. Hospital Course Hospital Course He slowly acclimated to the individual, group and milieu therapies provided.? He was continued on his outpatient medications but he was allowed to take Geodon 20 mg during the day as needed which he felt was beneficial.? He only did that one time.? He tolerated these doses and showed steady improvement during his stay. ? He was able to contract for safety outside hospital prior to discharge.? During the hospitalization, patient had routine laboratory studies which were within normal limits except for few outliers.? Additionally there was a general medical evaluation which was also within normal limits and revealed no new acute processes. Discharge Summary: At the time of discharge, lethality was denied and psychosis was resolving.? Mood and anxiety were well managed.? Patient endorsed a plan to follow-up with the aftercare recommendations of the treatment team.? Patient was evaluated and deemed to be absent credible lethality, and had achieved the maximum benefit from an inpatient hospitalization, so was discharge Meds NPU Home Medications Medication Instructions Recorded Confirmed Last Taken Type acetaminophen 500 mg tablet 1,000 mg PO Q6H PRN 08/03/20 06/08/21 11/04/20 09:00 History (Tylenol Extra Strength) metoprolol succinate 25 mg 25 mg PO DAILY 12/15/20 06/08/21 01/31/21 History tablet,extended release 24 hr omeprazole 20 mg capsule,delayed 20 mg PO DAILY 12/21/20 06/08/21 01/31/21 History release levothyroxine 100 mcg tablet 100 mcg PO DAILY #0 tab 03/12/21 06/08/21 Unknown Rx (Levoxyl) lisinopril 10 mg tablet 10 mg PO DAILY #0 tab 03/12/21 06/08/21 Unknown Rx ziprasidone HCl 20 mg capsule 20 mg PO DAILY PRN 30 Days #30 cap 05/13/21 06/03/21 Unknown Rx celecoxib 100 mg capsule 100 mg PO BID PRN 05/14/21 06/03/21 Unknown History cetirizine 10 mg tablet 10 mg PO DAILY PRN 05/14/21 06/03/21 Unknown History cyclobenzaprine 10 mg tablet 10 mg PO BID PRN tab 05/14/21 06/03/21 Unknown History melatonin 3 mg tablet 6 mg PO .QHS PRN tab 05/14/21 06/03/21 Unknown History metformin 500 mg tablet 500 mg PO BID 05/14/21 06/03/21 Unknown History tizanidine 4 mg tablet 4 mg PO Q8H PRN 05/14/21 06/03/21 Unknown History bupropion HCl 150 mg 24 hr tablet, 150 mg PO DAILY #30 tab 06/03/21 06/08/21 Unknown Rx extended release divalproex 500 mg tablet,extended 500 mg PO BID #60 tab 06/03/21 06/08/21 Unk nown Rx release 24 hr (Depakote ER) hydroxyzine pamoate 25 mg capsule 25 mg PO BID PRN cap 06/03/21 06/08/21 Unknown History quetiapine 300 mg tablet 300 mg PO BEDTIME #30 tab 06/03/21 06/08/21 Unknown Rx ziprasidone HCl 40 mg capsule 40 mg PO BID #60 cap 06/03/21 06/08/21 Unknown Rx ibuprofen 800 mg tablet 800 mg PO TID PRN 06/08/21 06/08/21 Unknown History naproxen 500 mg tablet 500 mg PO BID PRN 06/08/21 06/08/21 Unknown History quetiapine 100 mg tablet (Seroquel) 100 mg PO DAILY PRN 06/08/21 06/08/21 Unknown History Allergies Allergy/AdvReac Type Severity Reaction Status Date / Time chlorpromazine Allergy Severe ALGY-Anaphy Verified 06/07/21 23:20 laxis haloperidol [From Haldol] Allergy Severe ALGY-Swell Verified 06/07/21 23:20 Lip/Tongue/Throat lurasidone [From Latuda] Allergy Severe ALGY-Swell Verified 06/07/21 23:20 Lip/Tongue/Throat olanzapine [From Zyprexa] Allergy Severe ALGY-Swell Verified 06/07/21 23:20 Lip/Tongue/Throat PFSH NPU PFSH: Medical History Depressive disorder Hallucination Psychiatric care Schizoaffective disorder, depressive type Family History Other Diabetes Hypertension Schizoaffective disorder, depressive type Social History Smoking and tobacco status: former smoker Quit status (tobacco): has quit using tobacco Year quit tobacco: 10/21/2020 Former quit date comment: patient had been smoking for 10 years Second hand smoke exposure: Yes Alcohol intake: never Adopted: No Caregiver/support person: Yes Lives independently: No (Staying at [facility]) Household members: other Details: Multiple other residents at the facility. 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 Current occupational exposures/hazards: No Pets and animals: Yes Pets & animals: cat(s) History of recent travel: Yes (Just moved here from [place] in March.) Out of state: Yes Out of country: No Leisure activites: exercise, music, games and other Leisure activities details: watch TV Sexually active: No Current gender identity: Male Paola/Adventism: None Special paola needs: No Agree to transfusion: Yes Financial difficulty paying for basics: Not Very Hard Mental Status Exam MSE Comments: This is a 30-year-old male who appears approximately his stated age and is in no acute distress. He was found in bed at 11:15 AM. He has a full dodson. He is dressed in hospital scrubs. psychomotor activity mildly decreased. Speech is at a regular rate and rhythm, normal volume, good articulation, not pressured. Alert, oriented X3 Attention and concentration appears to be average. Memory is intact Mood is depressed. Affect is somewhat blunted. Thought process is logical and goal-directed. Thought content: He has been having more auditory hallucinations lately. He denies visual hallucinations. No delusions or paranoia are noted. No he reports suicidal ideation but no homicidal ideation. Fund of knowledge is average. Insight and judgment appear to be only fair. Impulse control is only fair. Vitals/I&O/Wt Last Vital Signs Temp 98.1 F 06/08/21 06:00 Pulse 99 06/08/21 06:00 Resp 26 H 06/08/21 06:00 BP 122/70 06/08/21 06:00 Pulse Ox 95 06/08/21 06:00 Weight last 48 hrs Weight 99.79 kg Data NPU : 06/07/21 23:19 06/07/21 23:19 A&P Assessment and plan (1) Schizoaffective disorder, depressive type: Status: Chronic (2) Suicidal ideation: Status: Acute Plan DiagnosisThis is a 30-year-old male with schizophrenia who comes in for worsening auditory hallucinations and suicidal ideation. He has several admissions for similar symptoms. Plan: 1. Continue current medication. Increase Geodon to 60 mg twice a day and increase Wellbutrin to 300 mg daily. 2. Continue every 15 minute checks for safety. 3. Encourage individual, group and milieu therapies. 4. Encourage sober living treatment after discharge at the highest level of care to which he is willing to commit. 5. We will monitor for safety for himself in the community prior to discharge. Involuntary Hold Information 96 Hour Hold: 96 Hour Involuntary Admission: No Attestations NPU Medical Necessity Statement*: Inpatient hospitalization is medically necessary and the clinically appropriate intervention at this time. We will initiate medications and make changes as indicated. Coding Level of Care Code Acute It Help Desk Associate for [facility] Fwd Diagnoses Schizoaffective disorder, depressive type F25.1 Suicidal ideation R45.85
--- NOTE | 2021-06-08 12:00 | NPU.GN ---
[facility] Group Topic:Dice Breaker Group Activity General Mood of Group: Real did not attend group today. He was sleeping.
[2021-06-08 14:00] VITALS: BP 120/72; PULSE 85; RESP 17; TEMP 37.2; O2SAT 99
[2021-06-08] MEDS: quetiapine 300 mg Tablet PO (20:28)
[2021-06-08] MEDS: hyDROXYzine 25 mg Capsule 50 MG PO (21:25)
[2021-06-08] MEDS: trazodone 50 mg Tablet PO (21:26)
[2021-06-08 22:00] VITALS: BP 112/73; PULSE 91; RESP 18; TEMP 36.6; O2SAT 96
--- NOTE | 2021-06-09 03:53 | PC.NURSE ---
Patient requested medication to help him sleep. Trazadone was given at 2126 for sleep. Medication was effective.
--- NOTE | 2021-06-09 03:54 | PC.NURSE ---
Patient complained to nursing staff that his anxiety was high. Asim stated to give him Visteral. Medication was given at 2124 and medication was effective.
[2021-06-09 06:00] VITALS: BP 110/74; PULSE 82; RESP 18; TEMP 37.1; O2SAT 99
[2021-06-09] MEDS: ziprasidone hcl 60 mg Capsule PO ×2 (07:02→17:21)
--- NOTE | 2021-06-09 08:43 | PC.NURSE ---
AM Assessment Patient is resting in bed with eyes closed. He is alert and oriented, able to state name and date of as well as month and year. He denies SI, HI but does report auditory hallucinations that tell him to injure himself. He denies a plan at this time. His affect is bland but he does make good eye contact. Hr is regular with ppp x 2, no edema noted. Lungs clear with breathing even and nonlabored. Bowels active in all quads. He denies pain with urination, denies pain elsewhere. Skin is warm and dry.
[2021-06-09] MEDS: metformin 500 mg Tablet PO (09:50)
[2021-06-09] MEDS: levothyroxine 100 mcg Tablet PO (09:50)
[2021-06-09] MEDS: divalproex ER 500 mg Tablet (24H) PO ×2 (09:50→17:21)
[2021-06-09] MEDS: metoprolol succinate ER (24 HR) 25 mg Tablet PO (09:51)
[2021-06-09] MEDS: lisinopril 10 mg Tablet PO (09:51)
[2021-06-09] MEDS: buPROPion XL (24 HR) 300 mg Tablet PO (09:51)
[2021-06-09] MEDS: pantoprazole DR 40 mg Tablet PO (09:51)
[2021-06-09] MEDS: nicotine 2 mg Gum BUCCAL ×3 (09:52→17:20)
--- NOTE | 2021-06-09 11:27 | NPU.GN ---
[facility] Topic: Thought Process General Mood of Group: Real did attend and participate in group. Hygiene was ok.
[2021-06-09] MEDS: ziprasidone hcl 20 mg Capsule PO (11:59)
--- NOTE | 2021-06-09 13:44 | W.PM.NPUPNS ---
Subjective NPU Subjective: Interval history: He was having more auditory hallucinations this morning and asked the nurses for something for it. He was given Geodon 20 mg and he says that was helpful. He would like that to be ordered so that he can take it when the voices are worse. He says that the Geodon 60 mg has been helping. I talked with his outpatient psychiatrist last night who agreed with the increase in Geodon. We discussed the long-term injectable but since he is in a facility where they monitor his medications and he seems to be very compliant it does not seem to have added benefit. He has not noticed any side effects from the Wellbutrin 300 mg daily Mental Status Exam MSE Comments: This is a 30-year-old male who appears approximately his stated age and is in no acute distress. He was found in bed at 11:15 AM. He has a full dodson. He is dressed in hospital scrubs. psychomotor activity mildly decreased. Speech is at a regular rate and rhythm, normal volume, good articulation, not pressured. Alert, oriented X3 Attention and concentration appears to be average. Memory is intact Mood is depressed. Affect is somewhat blunted. Thought process is logical and goal-directed. Thought content: He has been having more auditory hallucinations lately. He denies visual hallucinations. No delusions or paranoia are noted. No he reports suicidal ideation but no homicidal ideation. Fund of knowledge is average. Insight and judgment appear to be only fair. Impulse control is only fair. Cognition: Patient Appearance: Disheveled/Poor Hygiene Level of Consciousness: Awake, Alert, Appropriate and Follows Commands Patient Cognition Impaired: No Ability to Follow Directions: Excellent Patient Orientation (long list): Person, Place, Time and Name Comprehension Ability: No Impairment Hallucination Type: Auditory Delusion Description: Not Present Thought Process: Appropriate Affect: Affect Description: Appropriate, [place] and Depressed Depressive Symptoms: Back Pain Behavior: Patient Behavior: Appropriate and Cooperative Speech Pattern: Appropriate and Clear Vitals/I&O/Wt Last Vital Signs Temp 98.7 F 06/09/21 06:00 Pulse 82 06/09/21 06:00 Resp 18 06/09/21 06:00 BP 110/74 06/09/21 06:00 Pulse Ox 99 06/09/21 06:00 Weight last 48 hrs Weight 99.79 kg Data NPU : 06/07/21 23:19 06/07/21 23:19 A&P Assessment and plan (1) Schizoaffective disorder, depressive type: Status: Chronic (2) Suicidal ideation: Status: Acute Plan DiagnosisThipeyton is a 30-year-old male with schizophrenia who comes in for worsening auditory hallucinations and suicidal ideation. He has several admissions for similar symptoms. Plan: 1. Continue current medication. Increase Geodon to 60 mg twice a day and increase Wellbutrin to 300 mg daily. Add Geodon 20 mg twice a day as needed for hallucinations 2. Continue every 15 minute checks for safety. 3. Encourage individual, group and milieu therapies. 4. Encourage sober living treatment after discharge at the highest level of care to which he is willing to commit. 5. We will monitor for safety for himself in the community prior to discharge. Involuntary Hold Information 96 Hour Hold: 96 Hour Involuntary Admission: No Attestations NPU Medical Necessity Statement*: Inpatient hospitalization is medically necessary and the clinically appropriate intervention at this time. We will initiate medications and make changes as indicated. Coding Level of Care Code Acute Gymnastics Coach Or Instructor for [facility] [facility] Diagnoses Schizoaffective disorder, depressive type F25.1 Suicidal ideation R45.851
[2021-06-09 14:00] VITALS: BP 166/80; PULSE 108; RESP 18; O2SAT 96
[2021-06-09] MEDS: acetaminophen 325 mg Tablet 650 MG PO (14:13)
[2021-06-09] MEDS: nicotine 4 mg lozenge MUCOUS MEM (19:15)
[2021-06-09] MEDS: trazodone 50 mg Tablet PO (20:55)
[2021-06-09] MEDS: quetiapine 300 mg Tablet PO (20:55)
[2021-06-09 22:00] VITALS: BP 106/73; PULSE 100; RESP 18; TEMP 36.6; O2SAT 97
--- NOTE | 2021-06-10 03:01 | PC.NURSE ---
2054 Patient requested something to help him sleep. Trazadone 50mg po was given. Medication was effective as the patient has been able to rest.
[2021-06-10 06:00] VITALS: BP 132/79; PULSE 86; RESP 18; TEMP 36.6; O2SAT 96
[2021-06-10] MEDS: ziprasidone hcl 60 mg Capsule PO (06:24)
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
--- NOTE | 2021-06-10 08:38 | P.NPUPN_ITS ---
Subjective NPU Subjective: Interval history: He says that he is doing much better. He did not have any suicidal ideation yesterday. He had some auditory hallucinations around and took an extra Geodon. That helped and he did not have more hallucinations through the day or today. He feels like the increase in Geodon and Wellbutrin side effects. He feels like he will be ready to go home tomorrow and follow-up as well. Mental Status Exam MSE Comments: This is a 30-year-old male who appears approximately his stated age and is in no acute distress. He was up walking around at 8:30 am. He has a full dodson. He is dressed in hospital scrubs. psychomotor activity mildly decreased. Speech is at a regular rate and rhythm, normal volume, good articulation, not pressured. Alert, oriented X3 Attention and concentration appears to be average. Memory is intact Mood is mildly depressed. Affect is s euthymic. Thought process is logical and goal-directed. Thought content: Auditory hallucinations since around 1 PM yesterday. He denies he denies visual hallucinations. No delusions or paranoia are noted. No he reports suicidal ideation but no homicidal ideation. Fund of knowledge is average. Insight and judgment appear to be only fair. Impulse control is only fair. Cognition: Patient Appearance: Disheveled/Poor Hygiene Level of Consciousness: Awake, Alert, Appropriate and Follows Commands Patient Cognition Impaired: No Ability to Follow Directions: Excellent Patient Orientation (long list): Person, Place, Time and Name Comprehension Ability: No Impairment Hallucination Type: None Delusion Description: Not Present Thought Process: Appropriate Affect: Affect Description: Appropriate and Calm Depressive Symptoms: Back Pain Behavior: Patient Behavior: Appropriate and Cooperative Speech Pattern: Appropriate and Clear Vitals/I&O/Wt Last Vital Signs Temp 97.8 F 06/10/21 06:00 Pulse 86 06/10/21 06:00 Resp 18 06/10/21 06:00 BP 132/79 06/10/21 06:00 Pulse Ox 96 06/10/21 06:00 Data NPU : 06/07/21 23:19 06/07/21 23:19 A&P Assessment and plan (1) Schizoaffective disorder, depressive type: Status: Chronic (2) Suicidal ideation: Status: Acute Plan DiagnosisThis is a 30-year-old male with schizophrenia who comes in for worsening auditory hallucinations and suicidal ideation. He has several admissions for similar symptoms. Plan: 1. Continue current medication. Increase Geodon to 60 mg twice a day and increase Wellbutrin to 300 mg daily. Add Geodon 20 mg twice a day as needed for hallucinations 2. Continue every 15 minute checks for safety. 3. Encourage individual, group and milieu therapies. 4. Encourage sober living treatment after discharge at the highest level of care to which he is willing to commit. 5. We will monitor for safety for himself in the community prior to discharge. Involuntary Hold Information 96 Hour Hold: 96 Hour Involuntary Admission: No Attestations NPU Medical Necessity Statement*: Inpatient hospitalization is medically necessary and the clinically appropriate intervention at this time. We will initiate medications and make changes as indicated. 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
[2021-06-10] MEDS: pantoprazole DR 40 mg Tablet PO (08:46)
[2021-06-10] MEDS: buPROPion XL (24 HR) 300 mg Tablet PO (08:46)
[2021-06-10] MEDS: divalproex ER 500 mg Tablet (24H) PO ×2 (08:46→17:57)
[2021-06-10] MEDS: metoprolol succinate ER (24 HR) 25 mg Tablet PO (08:46)
[2021-06-10] MEDS: levothyroxine 100 mcg Tablet PO (08:46)
[2021-06-10] MEDS: lisinopril 10 mg Tablet PO (08:47)
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
[2021-06-10] MEDS: nicotine 4 mg lozenge MUCOUS MEM (10:41)
[2021-06-10 13:34] VITALS: BP 126/79; PULSE 99; RESP 24; TEMP 36.6; O2SAT 95
[2021-06-10] MEDS: nicotine 2 mg Gum BUCCAL ×3 (15:16→21:28)
[2021-06-10] MEDS: ziprasidone hcl 40 mg Capsule PO (17:20)
[2021-06-10] MEDS: hyDROXYzine 25 mg Capsule PO (18:52)
[2021-06-10 20:05] VITALS: BP 147/91; PULSE 102; RESP 18; TEMP 36.7; O2SAT 96
[2021-06-10] MEDS: quetiapine 300 mg Tablet PO (20:45)
[2021-06-11 06:00] VITALS: BP 115/77; PULSE 95; RESP 16; TEMP 36.3; O2SAT 97
[2021-06-11] MEDS: ziprasidone hcl 40 mg Capsule PO (06:27)
--- NOTE | 2021-06-11 07:48 | P.NPUPN_ITS ---
Subjective NPU Subjective: Interval history: He was incontinent of urine the night before last when he was sleeping. He also happened again during the day yesterday. He said the incontinence came on without warning as he was sitting watching television. He feels it is probably increased dose of Geodon. It was reduced to 40 yesterday afternoon and he has problems again immediately after he took it but not during the night. He said that he is allergic to Zyprexa Zydis and that is in his record. He said that Zyprexa tablets do not cause difficulties and that works very well for him. He says that it does increase his appetite but he is confident that he can control it. He would like to be changed to that starting at 5 mg tonight and probably increasing to 10 mg tomorrow. Mental Status Exam MSE Comments: This is a 30-year-old male who appears approximately his stated age and is in no acute distress. He was up walking around at 8:00 am. He has a full dodson. He is dressed in hospital scrubs. psychomotor activity mildly decreased. Speech is at a regular rate and rhythm, normal volume, good articulation, not pressured. Alert, oriented X3 Attention and concentration appears to be average. Memory is intact Mood is mildly depressed. Affect is s euthymic. Thought process is logical and goal-directed. Thought content: Auditory hallucinations have not come back yet with the reduced Geodon but he is concerned that they will.. He denies he denies visual hallucinations. No delusions or paranoia are noted. No he reports suicidal ideation but no homicidal ideation. Fund of knowledge is average. Insight and judgment appear to be only fair. Impulse control is only fair. Cognition: Patient Appearance: Disheveled/Poor Hygiene Level of Consciousness: Awake, Alert, Appropriate and Follows Commands Patient Cognition Impaired: No Ability to Follow Directions: Excellent Patient Orientation (long list): Person, Place, Time, Name, Age, Birthday and Day of Week Comprehension Ability: No Impairment Hallucination Type: None Delusion Description: Not Present Thought Process: Appropriate Affect: Affect Description: Appropriate and Calm Depressive Symptoms: Back Pain Behavior: Patient Behavior: Appropriate and Cooperative Speech Pattern: Appropriate and Clear Vitals/I&O/Wt Last Vital Signs Temp 97.4 F L 06/11/21 06:00 Pulse 95 06/11/21 06:00 Resp 16 06/11/21 06:00 BP 115/77 06/11/21 06:00 Pulse Ox 97 06/11/21 06:00 Data NPU : 06/07/21 23:19 06/07/21 23:19 A&P Assessment and plan (1) Schizoaffective disorder, depressive type: Status: Chronic (2) Suicidal ideation: Status: Acute Plan DiagnosisThipeyton is a 30-year-old male with schizophrenia who comes in for worsening auditory hallucinations and suicidal ideation. He has several admissions for similar symptoms. Plan: 1. Continue current medication. Wellbutrin to 300 mg daily. Discontinue Geodon and changed to Zyprexa 5 mg tonight. 2. Continue every 15 minute checks for safety. 3. Encourage individual, group and milieu therapies. 4. Encourage sober living treatment after discharge at the highest level of care to which he is willing to commit. 5. We will monitor for safety for himself in the community prior to discharge. Involuntary Hold Information 96 Hour Hold: 96 Hour Involuntary Admission: No Attestations NPU Medical Necessity Statement*: Inpatient hospitalization is medically necessary and the clinically appropriate intervention at this time. We will initiate medications and make changes as indicated. Coding Level of Care Code Acute Computer Game Programmer for Keny Ying Diagnoses Schizoaffective disorder, depressive type F25.1 Suicidal ideation R45.851
[2021-06-11] MEDS: nicotine 2 mg Gum BUCCAL ×6 (07:59→23:58)
--- NOTE | 2021-06-11 08:25 | DCPLANNER ---
IMM completed 06/11/2021 @ 0815. Pt was given a copy of rights and stated he understands rights.
[2021-06-11] MEDS: metoprolol succinate ER (24 HR) 25 mg Tablet PO (08:58)
[2021-06-11] MEDS: lisinopril 10 mg Tablet PO (08:58)
[2021-06-11] MEDS: levothyroxine 100 mcg Tablet PO (08:58)
[2021-06-11] MEDS: divalproex ER 500 mg Tablet (24H) PO ×2 (08:58→17:22)
[2021-06-11] MEDS: buPROPion XL (24 HR) 300 mg Tablet PO (08:58)
[2021-06-11] MEDS: metformin 500 mg Tablet PO (08:58)
[2021-06-11] MEDS: pantoprazole DR 40 mg Tablet PO (08:58)
[2021-06-11] MEDS: hyDROXYzine 25 mg Capsule PO ×2 (08:59→18:04)
[2021-06-11] MEDS: acetaminophen 325 mg Tablet 650 MG PO (09:23)
[2021-06-11] MEDS: quetiapine 100 mg Tablet PO (10:57)
[2021-06-11 14:00] VITALS: BP 127/79; PULSE 104; RESP 24; TEMP 36.2; O2SAT 95
[2021-06-11] MEDS: paliperidone ER 3 mg Tablet PO (16:25)
--- NOTE | 2021-06-11 16:58 | PC.NURSE ---
PRN medications- Patient has utilized PRN medications throughout the day as follows- Nicotine gum throughout shift. Vistaril at 0900 for c/o anxiety. Tylenol for mild pain at 0923 that was effective. Seroquel PRN for c/o continued anxiety the Vistaril was not effective for as well as increased AH leading to agitation. Seroquel was effective.
[2021-06-11 20:13] VITALS: BP 134/90; PULSE 98; RESP 18; TEMP 37.1; O2SAT 96
[2021-06-11] MEDS: trazodone 50 mg Tablet PO (20:47)
[2021-06-11] MEDS: quetiapine 300 mg Tablet PO (20:47)
[2021-06-11] MEDS: paliperidone ER 6 mg Tablet PO (21:43)
--- NOTE | 2021-06-12 03:55 | PC.NURSE ---
2046 requested med for sleep trazodone. 2146 med was effective.
[2021-06-12 06:00] VITALS: BP 131/89; PULSE 76; RESP 18; TEMP 36.7; O2SAT 98
[2021-06-12] MEDS: buPROPion XL (24 HR) 300 mg Tablet PO (08:15)
[2021-06-12] MEDS: divalproex ER 500 mg Tablet (24H) PO ×2 (08:15→17:34)
[2021-06-12] MEDS: levothyroxine 100 mcg Tablet PO (08:15)
[2021-06-12] MEDS: pantoprazole DR 40 mg Tablet PO (08:16)
[2021-06-12] MEDS: hyDROXYzine 25 mg Capsule PO ×2 (08:17→20:26)
[2021-06-12] MEDS: nicotine 2 mg Gum BUCCAL ×3 (08:17→18:38)
[2021-06-12] MEDS: lisinopril 10 mg Tablet PO (08:17)
[2021-06-12] MEDS: metoprolol succinate ER (24 HR) 25 mg Tablet PO (08:17)
[2021-06-12] MEDS: acetaminophen 325 mg Tablet 650 MG PO (10:29)
--- NOTE | 2021-06-12 10:52 | W.PM.NPUPNS ---
Subjective NPU Subjective: Interval history: He took the Invega 3 mg at dinner last night. He did not really have any side effects or benefits from it. The hallucinations became worse and we gave him another 6 mg at 10 PM which she said was very beneficial. He denied any side effects other than felt like he gave him some energy and quality of his sleep. He would like to take it in the morning. He has been drinking a lot of water and wonders if he flushed out the 3 mg of Invega that he took initially and also the Geodon that he has been taking. He has only had 1 episode of incontinence through the night. He is happy with the Invega and is confident that it is going to be active medication for him. Mental Status Exam MSE Comments: This is a 30-year-old male who appears approximately his stated age and is in no acute distress. He was up walking around at 8:00 am. He has a full dodson. He is dressed in hospital scrubs. psychomotor activity mildly decreased. Speech is at a regular rate and rhythm, normal volume, good articulation, not pressured. Alert, oriented X3 Attention and concentration appears to be average. Memory is intact Mood is good. Affect is s euthymic. Thought process is logical and goal-directed. Thought content: Auditory hallucinations last night and less so this morning. He denies he denies visual hallucinations. No delusions or paranoia are noted. No he reports suicidal ideation but no homicidal ideation. Fund of knowledge is average. Insight and judgment appear to be only fair. Impulse control is only fair. Cognition: Patient Appearance: Appropriate Level of Consciousness: Awake, Alert, Appropriate and Follows Commands Patient Cognition Impaired: No Ability to Follow Directions: Excellent Patient Orientation (long list): Person, Place, Time, Name, Age, Birthday and Day of Week Comprehension Ability: No Impairment Hallucination Type: None Delusion Description: Not Present Thought Process: Appropriate Affect: Affect Description: Appropriate and Calm Depressive Symptoms: Back Pain Behavior: Patient Behavior: Appropriate and Cooperative Speech Pattern: Appropriate and Clear Vitals/I&O/Wt Last Vital Signs Temp 98.1 F 06/12/21 06:00 Pulse 76 06/12/21 06:00 Resp 18 06/12/21 06:00 BP 131/89 06/12/21 06:00 Pulse Ox 98 06/12/21 06:00 Data NPU : 06/07/21 23:19 06/07/21 23:19 A&P Assessment and plan (1) Schizoaffective disorder, depressive type: Status: Chronic (2) Suicidal ideation: Status: Acute Plan DiagnosisThipeyton is a 30-year-old male with schizophrenia who comes in for worsening auditory hallucinations and suicidal ideation. He has several admissions for similar symptoms. Plan: 1. Continue current medication. Wellbutrin to 300 mg daily. Increase Invega to 6 mg and change to morning. 2. Continue every 15 minute checks for safety. 3. Encourage individual, group and milieu therapies. 4. Encourage sober living treatment after discharge at the highest level of care to which he is willing to commit. 5. We will monitor for safety for himself in the community prior to discharge. Involuntary Hold Information 96 Hour Hold: 96 Hour Involuntary Admission: No Attestations NPU Medical Necessity Statement*: Inpatient hospitalization is medically necessary and the clinically appropriate intervention at this time. We will initiate medications and make changes as indicated. Coding Level of Care Code Acute Print Support Specialist for Keny Ying Diagnoses Schizoaffective disorder, depressive type F25.1 Suicidal ideation R45.851
[2021-06-12] MEDS: paliperidone ER 3 mg Tablet 6 MG PO (11:34)
[2021-06-12] MEDS: quetiapine 100 mg Tablet PO (12:47)
[2021-06-12 14:00] VITALS: BP 131/89; PULSE 76; RESP 18; TEMP 36.7; O2SAT 98
[2021-06-12] MEDS: quetiapine 300 mg Tablet PO (20:26)
[2021-06-12 21:40] VITALS: BP 118/63; PULSE 110; RESP 20; TEMP 36.7; O2SAT 96
[2021-06-12] MEDS: trazodone 50 mg Tablet PO (21:56)
[2021-06-12] MEDS: cyclobenzaprine 10 mg Tablet PO (21:56)
[2021-06-13] MEDS: nicotine 2 mg Gum BUCCAL ×5 (01:06→14:59)
[2021-06-13 06:00] VITALS: BP 116/73; PULSE 70; RESP 18; TEMP 36.4; O2SAT 98
--- NOTE | 2021-06-13 07:39 | W.PM.NPUPNS ---
Subjective NPU Subjective: Interval history: He says that he had more auditory hallucinations again yesterday evening. He asked about taking some Seroquel at dinner. He was educated that Seroquel did not help that much antipsychotic activity and that some extra Invega would probably would be better for that. He agreed to try 3 mg at dinner. He wanted it scheduled and not the as needed. He was reminded that that might be difficult to get it changed once he leaves here but still wanted it to be scheduled. Mental Status Exam MSE Comments: This is a 30-year-old male who appears approximately his stated age and is in no acute distress. He was up walking around at 8:00 am. He has a full dodson. He is dressed in hospital scrubs. psychomotor activity is normal. Speech is at a regular rate and rhythm, normal volume, good articulation, not pressured. Alert, oriented X3 Attention and concentration appears to be average. Memory is intact Mood is good. Affect is s euthymic. Thought process is logical and goal-directed. Thought content: Auditory hallucinations last night and less so this morning. He denies he denies visual hallucinations. No delusions or paranoia are noted. No he reports suicidal ideation but no homicidal ideation. Fund of knowledge is average. Insight and judgment appear to be only fair. Impulse control is only fair. Cognition: Patient Appearance: Appropriate Level of Consciousness: Awake, Alert, Appropriate and Follows Commands Patient Cognition Impaired: No Ability to Follow Directions: Excellent Patient Orientation (long list): Person, Place and Time Comprehension Ability: No Impairment Hallucination Type: None Delusion Description: Not Present Thought Process: Appropriate Affect: Affect Description: Appropriate Depressive Symptoms: Back Pain Behavior: Patient Behavior: Appropriate Speech Pattern: Appropriate Vitals/I&O/Wt Last Vital Signs Temp 97.6 F 06/13/21 06:00 Pulse 70 06/13/21 06:00 Resp 18 06/13/21 06:00 BP 116/73 06/13/21 06:00 Pulse Ox 98 06/13/21 06:00 Weight last 48 hrs Weight 98.43 kg Weight 98.43 kg Data NPU : 06/07/21 23:19 06/07/21 23:19 A&P Assessment and plan (1) Schizoaffective disorder, depressive type: Status: Chronic (2) Suicidal ideation: Status: Acute Plan DiagnosisThis is a 30-year-old male with schizophrenia who comes in for worsening auditory hallucinations and suicidal ideation. He has several admissions for similar symptoms. Plan: 1. Continue current medication. Wellbutrin to 300 mg daily. Increase Invega to 6 mg and change to morning. 2. Continue every 15 minute checks for safety. 3. Encourage individual, group and milieu therapies. 4. Encourage sober living treatment after discharge at the highest level of care to which he is willing to commit. 5. We will monitor for safety for himself in the community prior to discharge. Involuntary Hold Information 96 Hour Hold: 96 Hour Involuntary Admission: No Attestations NPU Medical Necessity Statement*: Inpatient hospitalization is medically necessary and the clinically appropriate intervention at this time. We will initiate medications and make changes as indicated. Coding Level of Care Code Acute Letterpress Setter for Keny Ying Diagnoses Schizoaffective disorder, depressive type F25.1 Suicidal ideation R45.667
[2021-06-13] MEDS: paliperidone ER 3 mg Tablet 6 MG PO (08:17)
[2021-06-13] MEDS: lisinopril 10 mg Tablet PO (08:17)
[2021-06-13] MEDS: levothyroxine 100 mcg Tablet PO (08:17)
[2021-06-13] MEDS: pantoprazole DR 40 mg Tablet PO (08:17)
[2021-06-13] MEDS: metoprolol succinate ER (24 HR) 25 mg Tablet PO (08:17)
[2021-06-13] MEDS: divalproex ER 500 mg Tablet (24H) PO ×2 (08:18→17:13)
[2021-06-13] MEDS: cyclobenzaprine 10 mg Tablet PO ×2 (08:18→20:17)
[2021-06-13] MEDS: buPROPion XL (24 HR) 300 mg Tablet PO (08:18)
[2021-06-13] MEDS: hyDROXYzine 25 mg Capsule PO (10:25)
[2021-06-13 14:00] VITALS: BP 120/72; PULSE 115; RESP 17; TEMP 36.6; O2SAT 97
[2021-06-13] MEDS: quetiapine 100 mg Tablet PO (14:59)
[2021-06-13] MEDS: paliperidone ER 3 mg Tablet PO (17:13)
[2021-06-13 19:42] VITALS: BP 108/76; PULSE 116; RESP 18; TEMP 36.9; O2SAT 96
[2021-06-13] MEDS: quetiapine 300 mg Tablet PO (20:17)
[2021-06-14] MEDS: nicotine 2 mg Gum BUCCAL ×2 (03:50→09:10)
[2021-06-14] MEDS: hyDROXYzine 25 mg Capsule PO (04:24)
[2021-06-14 06:38] VITALS: BP 128/90; PULSE 81; RESP 18; TEMP 37; O2SAT 95
[2021-06-14] MEDS: metoprolol succinate ER (24 HR) 25 mg Tablet PO (08:12)
[2021-06-14] MEDS: pantoprazole DR 40 mg Tablet PO (08:12)
[2021-06-14] MEDS: levothyroxine 100 mcg Tablet PO (08:12)
[2021-06-14] MEDS: lisinopril 10 mg Tablet PO (08:12)
[2021-06-14] MEDS: buPROPion XL (24 HR) 300 mg Tablet PO (08:12)
[2021-06-14] MEDS: paliperidone ER 3 mg Tablet 6 MG PO (08:12)
[2021-06-14] MEDS: cyclobenzaprine 10 mg Tablet PO (08:12)
[2021-06-14] MEDS: divalproex ER 500 mg Tablet (24H) PO (08:12)
--- NOTE | 2021-06-14 08:30 | P.NPUDS_ITS ---
Diagnoses at Discharge Discharge Diagnosis (1) Schizoaffective disorder, depressive type: Status: Chronic (2) Suicidal ideation: Status: Acute Reason for Visit Reason for Visit: SI/HI Brief History: Real Black is a 30 year old male who was admitted to our emergency department with the following report: 30-year-old male who has a long history of psychiatric issues states that over the last 2 to 3 days has been having suicidal thoughts with some homicidal thoughts over the last day.? He states he has no specific plan but since his med adjustments he just been having increased depression and suicidality.? He states he feels like he needs to be admitted to get help denies any drug or alcohol use denies any worsening improving factors. Associated symptoms: Reports homicidal ideation and suicidal ideation He was admitted to the neuropsychiatry unit for definitive treatment for these issues. He says that he has been doing well.? He had a anniversary outing with his girlfriend at [facility] as he told me he was going to do at the last admission.? He said that went great.? He and his girlfriend continue to get along very well.? He says that she is very supportive.? He saw his outpatient psychiatrist on June 03 and was doing well at that time no medication changes were made.? Very soon after that he started getting more depressed and hearing more auditory hallucinations.? He has started having suicidal ideations and even some homicidal ideations.? He brought himself to the emergency room because he felt that he was no longer safe.? He would like to increase his Geodon up to 60 mg twice a day.? He also asked about the Wellbutrin if that could be increased.? He has been on 150 mg for quite some time.? He agreed to increase that to 300 mg. Hospital Course Hospital Course He slowly acclimated to the individual, group and milieu therapies provided. He wanted to change the Geodon to Invega wanted to take 3 mg because he frequently has hallucinations after dinner. He also will increase the Wellbutrin 300. He tolerated these doses and showed steady improvement during his stay. He was able to contract for safety outside hospital prior to discharge. During the hospitalization, patient had routine laboratory studies which were within normal limits except for few outliers. Additionally there was a general medical evaluation which was also within normal limits and revealed no new acute processes. Discharge Summary: At the time of discharge, lethality was denied and psychosis was resolving. Mood and anxiety were well managed. Patient endorsed a plan to follow-up with the aftercare recommendations of the treatment team. Patient was evaluated and deemed to be absent credible lethality, and had achieved the maximum benefit from an inpatient hospitalization, so was discharged. Involuntary Hold Information 96 Hour Hold: 96 Hour Involuntary Admission: No Mental Status Exam MSE Comments: This is a 30-year-old male who appears approximately his stated age and is in no acute distress. He was up walking around at 8:00 am. He has a full dodson. He is dressed in hospital scrubs. psychomotor activity is normal. Speech is at a regular rate and rhythm, normal volume, good articulation, not pressured. Alert, oriented X3 Attention and concentration appears to be average. Memory is intact Mood is good. Affect is s euthymic. Thought process is logical and goal-directed. Thought content: Auditory hallucinations last night and less so this morning. He denies he denies visual hallucinations. No delusions or paranoia are noted. No he reports suicidal ideation but no homicidal ideation. Fund of knowledge is average. Insight and judgment appear to be only fair. Impulse control is only fair. Cognition: Patient Appearance: Appropriate Level of Consciousness: Awake, Alert, Appropriate and Follows Commands Patient Cognition Impaired: No Ability to Follow Directions: Excellent Patient Orientation (long list): Person, Place and Time Comprehension Ability: No Impairment Hallucination Type: None Delusion Description: Not Present Thought Process: Appropriate Affect: Affect Description: Appropriate Depressive Symptoms: Back Pain Behavior: Patient Behavior: Appropriate Speech Pattern: Appropriate Discharge Data Studies Completed and Pending: Laboratory Results WBC 7.5 10^3/uL (4.0- 10.0) 06/07/21 23: RBC 4.80 10^6/uL (4.1 -5.3) 06/07/21 23:19 Hgb 14.6 g/dL (11.7-1 6.6) 06/07/21 23: Hct 43.4 % (42.0-52.0 ) 06/07/21 23:19 MCV 90.4 fl (80-94) 06/07/21 23: MCH 30.4 pg (28.0-34. 0) 06/07/21 23: MCHC 33.6 g/dL (30.0-3 6.0) 06/07/21 23:19 RDW 12.9 % (12.1-15.1 ) 06/07/21 23:19 Plt Count 229 10^3/cmm (130 -400) 06/07/21 23:19 MPV 9.8 fL (7.4-10.4) 06/07/21 23:19 Neut % (Auto) 50.1 % 06/07/21 23:19 Lymph % (Auto) 44.2 % 06/07/21 23:19 Maverick % (Auto) 3.6 % 06/07/21 23:19 Eos % (Auto) 1.7 % 06/07/21 23:19 Baso % (Auto) 0.3 % 06/07/21 23: Neut # (Auto) 3.73 10^3/uL (1.8 -7.7) 06/07/21 23:19 Lymph # (Auto) 3.3 10^3/uL (0.8- 4.8) 06/07/21 23:19 Maverick # (Auto) 0.3 10^3/uL (0.2- 0.9) 06/07/21 23:19 Eos # (Auto) 0.1 10^3/uL (0.0- 0.8) 06/07/21 23:19 Baso # (Auto) 0.0 10^3/uL (0.0- 0.1) 06/07/21 23:19 Nucleated RBC % (a uto) 0 % 06/07/21 23: Nucleated RBCs # 0.0 /100WBC 06/07/21 23:19 Sodium 139 mmol/L (136-1 45) 06/07/21 23:19 Potassium 3.8 mmol/L (3.5-5 .1) 06/07/21 23:19 Chloride 102 mmol/L (98-10 7) 06/07/21 23:19 Carbon Dioxide 23 mmol/L (22-29) 06/07/21 23:19 Anion Gap 17.8 (5-19) 06/07/21 23:19 BUN 10 mg/dL (6-20) 06/07/21 23:19 Creatinine 0.8 mg/dL (0.7-1. 2) 06/07/21 23:19 GFR Calculation 114.3 mL/min (90- 130) 06/07/21 23:19 Glucose 111 mg/dL (65-115 ) 06/07/21 23:19 Calculated Osmolal ity 288 mOsm/kg (285- 295) 06/07/21 23:19 Calcium 9.1 mg/dL (8.5-10 .5) 06/07/21 23:19 Total Bilirubin 0.2 mg/dL (0.15-1 .2) 06/07/21 23:19 AST 18 U/L (0-40) 06/07/21 23:19 ALT 28 U/L (0-41) 06/07/21 23:19 Alkaline Phosphata se 36 IU/L (40-130) L 06/07/21 23:19 Total Protein 7.2 g/dL (6.6-8.7 ) 06/07/21 23:19 Albumin 4.8 g/dL (3.5-5.2 ) 06/07/21 23:19 Globulin 2.4 g/dL (1.3-4.6 ) 06/07/21 23:19 TSH 1.86 uIU/mL (0.27 -4.20) 06/07/21 23:19 Salicylates < 0.3 mg/dL (3-10 ) L 06/07/21 23:19 Urine Opiates Scre en Negative ng/mL (N egative) 06/07/21 23:22 Acetaminophen < 5.0 ug/mL (10-3 0) L 06/07/21 23:19 Ur Barbiturates Sc reen Negative ng/mL (N egative) 06/07/21 23:22 Valproic Acid 48.8 ug/mL (50-10 0) L 06/07/21 23:19 Ur Phencyclidine S crn Negative ng/mL (N egative) 06/07/21 23:22 Ur Amphetamines Sc reen Negative ng/mL (N egative) 06/07/21 23:22 U Benzodiazepines Scrn Negative ng/mL (N egative) 06/07/21 23:22 Urine Cocaine Scre en Negative ng/mL (N egative) 06/07/21 23:22 U Marijuana (THC) Screen Negative ng/mL (N egative) 06/07/21 23:22 Ethyl Alcohol < 10 mg/dL (0-10) 06/07/21 23:19 Vitals: Last Vital Signs Temp 98.6 F 06/14/21 06:38 Pulse 81 06/14/21 06:38 Resp 18 06/14/21 06:38 BP 128/90 06/14/21 06:38 Pulse Ox 95 06/14/21 06:38 Discharge Plan Discharge Patient Disposition: Home Condition: Stable Prescriptions: New bupropion HCl 300 mg Tablet Extended Release 24 Hr 300 mg PO DAILY 30 Days Qty: 30 1RF paliperidone 3 mg Tablet Extended Release 24hr 6 mg PO DAILY 30 Days Qty: 30 1RF paliperidone 3 mg Tablet Extended Release 24hr 3 mg PO 1700 30 Days Qty: 30 1RF Continued omeprazole 20 mg capsule,delayed release(DR/EC) 20 mg PO DAILY 0RF divalproex [Depakote ER] 500 mg tablet extended release 24 hr 500 mg PO BID Qty: 60 1RF Rx Instructions: Take 1 tablet morning and bedtime hydroxyzine pamoate 25 mg capsule 25 mg PO BID PRN (Reason: Anxiety) 0RF Rx Instructions: take one capsule by mouth twice daily, if needed for anxiety quetiapine 300 mg tablet 300 mg PO BEDTIME Qty: 30 1RF Rx Instructions: Take 1 tablet daily at bedtime acetaminophen [Tylenol Extra Strength] 500 mg tablet 1,000 mg PO Q6H PRN (Reason: Pain) 0RF metformin 500 mg tablet 500 mg PO BID 0RF Label Comments: on hold cetirizine 10 mg tablet 10 mg PO DAILY PRN (Reason: Allergy Symptoms) 0RF cyclobenzaprine 10 mg tablet 10 mg PO BID PRN (Reason: Pain) 0RF ibuprofen 800 mg Tablet 800 mg PO TID PRN (Reason: Pain) 0RF quetiapine [Seroquel] 100 mg Tablet 100 mg PO DAILY PRN (Reason: Agitation) 0RF naproxen 500 mg Tablet 500 mg PO BID PRN (Reason: Pain) 0RF metoprolol succinate 25 mg tablet extended release 24 hr 25 mg PO DAILY 0RF levothyroxine [Levoxyl] 100 mcg Tablet 100 mcg PO DAILY Qty: 0 0RF lisinopril 10 mg Tablet 10 mg PO DAILY Qty: 0 0RF Discontinued bupropion HCl 150 mg tablet extended release 24 hr 150 mg PO DAILY Qty: 30 1RF Rx Instructions: Take one tablet by mouth every morning ziprasidone HCl 40 mg capsule 40 mg PO BID Qty: 60 1RF Rx Instructions: Take 1 capsule twice daily, morning and evening, with snack/meal of at least 350 aria Discharge Orders: Discharge Order (Routine); Ordered 06/14/21 Ordered By: Rupert Guzman Referrals: Patria Mckinney APRN [Nurse Practitioner] - 07/01/21 4:00 pm Sp Flowers MD [Primary Care Provider] - Discharge Diet: Regular Discharge Activity: Resume usual activity Patient Instructions: Opioid Safety Discharge Attestations NPU Time Spent in Discharge Care*: less than 30 min Specific Discharge Activities: Specific discharge activities: educating patient, discussing with director case management/social workers/dc planners, documenting/other paperwork and evaluating patient/reviewing data Status at Discharge: Cognitive status at discharge: cognitively intact , Behavioral status at discharge: cooperative , Coding Level of Care Code Acute [facility] DC note Diagnoses Schizoaffective disorder, depressive type F25.1 Suicidal ideation R45.858
[2021-06-14 09:55] VITALS: BP 128/90; PULSE 81; RESP 18; TEMP 37; O2SAT 95
--- NOTE | 2021-06-14 11:57 | DCPLANNER ---
IMM completed 06/14/21 @ 5164. Pt was given a copy of rights and stated he understands rights.
== END 2021-06-14 10:55 | disposition home or self-care (01) | DRG 885 ==
LOC: ER 23:40 → NP 06-08 00:08
PROVIDERS: Admitting Provider Psychiatry & Neurology Psychiatry; Emergency Provider Emergency Medicine; PCP Family Medicine; Visit Provider Psychiatry & Neurology Psychiatry
DX: F25.1 Schizoaffective disorder, depressive type (principal); R45.851 Suicidal ideations; R45.850 Homicidal ideations; Z87.891 Personal history of nicotine dependence
CPT/HCPCS: 80053; 80164; 80306; 80307; 84443; 85025; 97150; 97165; 99285

== ENCOUNTER → 2021-07-01 15:37 | Outpatient (BNVA) | payer MEDICARE, MEDICAID, SELFPAY ==
[2020-12-11 11:23] VITALS: BP 133/83; BMI 32.1
== END ==
PROVIDERS: PCP Family Medicine; Visit Provider Nurse Practitioner Psychiatric/Mental Health
DX: F25.1 Schizoaffective disorder, depressive type (principal)
CPT/HCPCS: 99214

== ENCOUNTER → 2021-07-13 15:09 | Outpatient (BNVA) | payer MEDICARE, MEDICAID, OTHER, SELFPAY ==
[2020-12-11 11:23] VITALS: BP 133/83; BMI 32.1
== END ==
PROVIDERS: PCP Family Medicine; Visit Provider Nurse Practitioner Psychiatric/Mental Health
DX: F25.1 Schizoaffective disorder, depressive type (principal)
CPT/HCPCS: 99213

== ENCOUNTER → 2021-07-29 15:44 | Outpatient (BNVA) | payer MEDICARE, MEDICAID, SELFPAY ==
[2020-12-11 11:23] VITALS: BP 133/83; BMI 32.1
== END ==
PROVIDERS: PCP Family Medicine; Visit Provider Nurse Practitioner Psychiatric/Mental Health
DX: F25.1 Schizoaffective disorder, depressive type (principal)
CPT/HCPCS: 99213

== ENCOUNTER → 2021-08-26 14:59 | Outpatient (BNVA) | payer MEDICARE, MEDICAID, OTHER, SELFPAY ==
[2020-12-11 11:23] VITALS: BP 133/83; BMI 32.1
== END ==
PROVIDERS: PCP Family Medicine; Visit Provider Nurse Practitioner Psychiatric/Mental Health
DX: F25.1 Schizoaffective disorder, depressive type (principal)
CPT/HCPCS: 99213

== ENCOUNTER 2021-09-28 01:42 | Inpatient (IN) | payer MEDICARE, MEDICAID, SELFPAY ==
[2020-12-11 11:23] VITALS: BP 133/83; BMI 32.1
[2021-09-28 01:47] VITALS: BMI 34.0
[2021-09-28 01:50] VITALS: BP 142/86; PULSE 89; RESP 16; TEMP 36.7; O2SAT 98
--- NOTE | 2021-09-28 02:25 | ED.C_ITS ---
HPI - Psych General: Chief Complaint: Psychiatric Symptoms Stated Complaint: SI Time Seen by Provider: 09/28/21 02:24 History of Present Illness: Mr. Black is a 31-year-old male with history of schizoaffective disorder presenting to the emergency department due to suicidal ideation and hallucinations. He reports history of similar however had been doing well. Symptoms started yesterday morning without known specific provoking factor. He reports compliance with medication regimen and denies other associated significant changes in related depressive symptoms. Intensity of h allucinations have been worsening. They tell him to hurt himself. He has had increased thoughts of hurting himself because of these voices. Otherwise denies medical complaints. No other specific changes in health, exacerbating, or alleviating factors identified. Onset (ago): hour(s) Duration: getting worse History of same: Yes Associated psychiatric symptoms: depression, suicidal ideation and auditory hallucinations Review of Systems General: Reports: 10 or more systems reviewed and unremarkable except in HPI and below PFSH ED PFSH: Medical History Depressive disorder Hallucination Psychiatric care Schizoaffective disorder, depressive type Family History Other Diabetes Hypertension Schizoaffective disorder, depressive type Social History Smoking and tobacco status: current every day smoker cigarettes Packs smoked per day: 1 Years cigarettes smoked: 12 Quit status (tobacco): has quit using tobacco Year quit tobacco: 10/21/2020 Former quit date comment: patient had been smoking for 10 years Second hand smoke exposure: Yes Alcohol intake: never Adopted: No Caregiver/support person: Yes Lives independently: No (Staying at [facility]) Household members: other Details: Multiple other residents at the facility. 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 Current occupational exposures/hazards: No Pets and animals: Yes Pets & animals: cat(s) History of recent travel: Yes (Just moved here from [place] in March.) Out of state: Yes Out of country: No Leisure activites: exercise, music, games and other Leisure activities details: watch TV Sexually active: No Current gender identity: Male Paola/Restorationist: None Special paola needs: No Agree to transfusion: Yes Financial difficulty paying for basics: Not Very Hard Physical Exam Const: COMMON NORMALS: alert GENERAL APPEARANCE: cooperative and well developed HENMT: COMMON NORMALS: normocephalic and atraumatic HEAD & SCALP: normocephalic and atraumatic Eye: COMMON NORMALS: conjunctivae normal CONJUNCTIVA: Yes conjunctivae normal SCLERA: sclerae normal Neck/C-Spine: COMMON NORMALS: supple GENERAL: Yes trachea midline Resp: COMMON NORMALS: normal respiratory effort and clear to auscultation bilaterally EFFORT & INSPECTION: Yes able to speak in complete sentences AUSCULTATION: clear to auscultation bilaterally Cardio: COMMON NORMALS: regular rate and regular rhythm RATE: regular rate RHYTHM: regular rhythm GI: COMMON NORMALS: Soft to palpation PALPATION: Yes Soft to palpation and No Tenderness to palpation present (GI) PERCUSSION: normal to percussion Extremity: GENERAL: Yes normal exam except as noted and No edema Neuro: COMMON NORMALS: moves all extremities SENSORIUM/ORIENTATION: Yes alert and No Orientation impaired Psych: COMMON NORMALS: mental status grossly normal and Normal thought process present APPEARANCE: Yes unkempt ATTITUDE: Yes Withdrawn affect present MOOD & AFFECT: Yes depressed mood THOUGHT PROCESS: Normal thought process present Course ED course: - Patient was seen and evaluated by me at bedside -Vital signs obtained - Initial evaluation notable for exam as above - Labs personally interpreted by me - Labs notable for no significant hematologic or metabolic abnormality to explain symptoms. Toxic ingestions negative. TSH elevated but normal free T4. -Based on ED evaluation at this point there is is no obvious condition that wo uld preclude the patient inpatient management of psychiatric concerns. -Discussed with Dr. Guzman of the psychiatry service who accepted the patient for admission Note: Click bubbles or prepopulated hagen in note writing are used for assistance with data collection and billing and are inherently more limited than narrative and other text portions of this note. Please use narrative for additional clinical history and defer to narrative/free test for any case of contradictory information. If information appears in only free text or click bubble it should be considered present or absent as reported. Please contact note newswriter for clarifications of clinical information or contradictory information. MDM is a brief summary, contradictory or erroneous seeming information should be clarified and full note should be reviewed. Vital Signs: Vital signs: Vital Signs Temperature 97.6 F 10/03/21 14:29 Pulse Rate 89 10/03/21 14:29 Respiratory Rate 16 10/03/21 14:29 Blood Pressure 125/82 10/03/21 14:29 Pulse Oximetry 94 10/03/21 14:29 MDM - Psych Medical Decision Making 31 yo male presenting with SI and hallucinations. Admitted for further management. Medical Records I reviewed the patient's medical records. Lab Data I reviewed the patient's lab results. : 09/28/21 02:50 09/28/21 02:50 Laboratory Results WBC 7.3 10^3/uL (4.0-10.0) 09/28/21 02:50 RBC 4.59 10^6/uL (4.1-5.3) 09/28/21 02:50 Hgb 14.2 g/dL (11.7-16.6) 09/28/21 02:50 Hct 41.6 % (42.0-52.0) L 09/28/21 02:50 MCV 90.6 fl (80-94) 09/28/21 02:50 MCH 30.9 pg (28.0-34.0) 09/28/21 02:50 MCHC 34.1 g/dL (30.0-36.0) 09/28/21 02:50 RDW 12.8 % (12.1-15.1) 09/28/21 02:50 Plt Count 218 10^3/cmm (130-400) 09/28/21 02:50 MPV 10.0 fL (7.4-10.4) 09/28/21 02:50 Neut % (Auto) 48.7 % 09/28/21 02:50 Lymph % (Auto) 42.5 % 09/28/21 02:50 [place] % (Auto) 6.1 % 09/28/21 02:50 Eos % (Auto) 1.8 % 09/28/21 02:50 Baso % (Auto) 0.4 % 09/28/21 02:50 Neut # (Auto) 3.56 10^3/uL (1.8-7.7) 09/28/21 02:50 Lymph # (Auto) 3.1 10^3/uL (0.8-4.8) 09/28/21 02:50 [place] # (Auto) 0.5 10^3/uL (0.2-0.9) 09/28/21 02:50 Eos # (Auto) 0.1 10^3/uL (0.0-0.8) 09/28/21 02:50 Baso # (Auto) 0.0 10^3/uL (0.0-0.1) 09/28/21 02:50 Nucleated RBC % (auto) 0 % 09/28/21 02:50 Nucleated RBCs # 0.0 /100WBC 09/28/21 02:50 Sodium 139 mmol/L (136-145) 09/28/21 02:50 Potassium 3.7 mmol/L (3.5-5.1) 09/28/21 02:50 Chloride 105 mmol/L (98-107) 09/28/21 02:50 Carbon Dioxide 23 mmol/L (22-29) 09/28/21 02:50 Anion Gap 14.7 (5-19) 09/28/21 02:50 BUN 10 mg/dL (6-20) 09/28/21 02:50 Creatinine 0.7 mg/dL (0.7-1.2) 09/28/21 02:50 GFR Calculation 132.4 mL/min (90-130) H 09/28/21 02:50 Glucose 110 mg/dL (65-115) 09/28/21 02:50 Calculated Osmolality 288 mOsm/kg (285-295) 09/28/21 02:50 Calcium 8.9 mg/dL (8.5-10.5) 09/28/21 02:50 Total Bilirubin 0.2 mg/dL (0.15-1.2) 09/28/21 02:50 AST 19 U/L (0-40) 09/28/21 02:50 ALT 32 U/L (0-41) 09/28/21 02:50 Alkaline Phosphatase 41 IU/L (40-130) 09/28/21 02:50 Total Protein 7.3 g/dL (6.6-8.7) 09/28/21 02:50 Albumin 4.3 g/dL (3.5-5.2) 09/28/21 02:50 Globulin 3.0 g/dL (1.3-4.6) 09/28/21 02:50 TSH 4.34 uIU/mL (0.27-4.20) H 09/28/21 02:50 Free T4 1.01 ng/dL (0.82-1.77) 09/28/21 02:50 Salicylates < 0.3 mg/dL (3-10) L 09/28/21 02:50 Urine Opiates Screen Negative ng/mL (Negative) 09/28/21 02:58 Acetaminophen < 5.0 ug/mL (10-30) L 09/28/21 02:50 Ur Barbiturates Screen Negative ng/mL (Negative) 09/28/21 02:58 Ur Phencyclidine Scrn Negative ng/mL (Negative) 09/28/21 02:58 Ur Amphetamines Screen Negative ng/mL (Negative) 09/28/21 02:58 U Benzodiazepines Scrn Negative ng/mL (Negative) 09/28/21 02:58 Urine Cocaine Screen Negative ng/mL (Negative) 09/28/21 02:58 U Marijuana (THC) Screen Negative ng/mL (Negative) 09/28/21 02:58 Ethyl Alcohol < 10 mg/dL (0-10) 09/28/21 02:50 Discharge Plan Discharge Patient Disposition: Admitted As Inpatient Admit Provider: Rupert Guzman Clinical Impression: Suicidal ideation, Auditory hallucinations Condition: Stable Discharge Diet: Regular Discharge Activity: Resume usual activity Coding Level of Care Code ED Social Scientist for Keny Fwd Exam Comprehensive
[2021-09-28 03:01] LABS: Basophils % 0.4 %; Eosinophils # 0.1 10^3/uL (0.0-0.8); Eosinophils % 1.8 %; Hematocrit 41.6 % (42.0-52.0); Hemoglobin 14.2 g/dL (11.7-16.6); Lymphocytes # 3.1 10^3/uL (0.8-4.8); Lymphocytes % 42.5 %; Mean Corpuscular HGB Conc 34.1 g/dL (30.0-36.0); Mean Corpuscular Hemoglobin 30.9 pg (28.0-34.0); Mean Corpuscular Volume 90.6 fl (80-94); Monocytes # 0.5 10^3/uL (0.2-0.9); Monocytes % 6.1 %; Neutrophils # 3.56 10^3/uL (1.8-7.7); Neutrophils % 48.7 %; Nucleated Red Blood Cells % 0 %; Platelet Count 218 10^3/cmm (130-400); Red Blood Count 4.59 10^6/uL (4.1-5.3); Red Cell Distribution Width 12.8 % (12.1-15.1); White Blood Count 7.3 10^3/uL (4.0-10.0)
[2021-09-28 03:36] LABS: Acetaminophen < 5.0 ug/mL (10-30); Alanine Aminotransferase 32 U/L (0-41); Albumin Level 4.3 g/dL (3.5-5.2); Alcohol Level < 10 mg/dL (0-10); Alkaline Phosphatase 41 IU/L (40-130); Anion Gap 14.7 (5-19); Aspartate Amino Transferase 19 U/L (0-40); Blood Urea Nitrogen 10 mg/dL (6-20); Calcium 8.9 mg/dL (8.5-10.5); Carbon Dioxide 23 mmol/L (22-29); Chloride 105 mmol/L (98-107); Glomerular Filtration Rate 132.4 mL/min (90-130); Glucose 110 mg/dL (65-115); Osmolality Calculated 288 mOsm/kg (285-295); Potassium 3.7 mmol/L (3.5-5.1); Salicylate < 0.3 mg/dL (3-10); Sodium 139 mmol/L (136-145); Thyroid Stimulating Hormone 4.34 uIU/mL (0.27-4.20); Total Bilirubin 0.2 mg/dL (0.15-1.2); Total Protein 7.3 g/dL (6.6-8.7)
[2021-09-28 03:43] LABS: Amphetamines Screen Urine Negative (Negative); Barbiturates Screen Urine Negative (Negative); Benzodiazepines Screen Urine Negative (Negative); Cocaine Screen Urine Negative (Negative); Opiate Screen Urine Negative (Negative); PCP Screen Urine Negative (Negative); THC Screen Urine Negative (Negative)
[2021-09-28 04:17] VITALS: BP 133/84; PULSE 107; RESP 20; TEMP 36.5; O2SAT 97
[2021-09-28 04:27] LABS: Free T4 Free Thyroxine 1.01 ng/dL (0.82-1.77)
[2021-09-28 04:51] VITALS: BMI 35.4
--- NOTE | 2021-09-28 05:04 | PC.ADMIT ---
Admission Note: Mr. Black is a 31-year-old male with history of schizoaffective disorder presenting to the emergency department due to suicidal ideation and hallucinations. He reports history of similar however had been doing well. Symptoms started yesterday morning without known specific provoking factor. He reports compliance with medication regimen and denies other associated significant changes in related depressive symptoms. Intensity of hallucinations have been worsening. They tell him to hurt himself. He has had increased thoughts of hurting himself because of these voices. Otherwise denies medical complaints. No other specific changes in health, exacerbating, or alleviating factors identified. The patient,Real Black,31 y/o, was given written information regarding hospital policies, unit procedures and contact persons. Patient's smoking status: current every day smoker. Vital Signs - 8 hr 09/28/21 01:50 09/28/21 04:17 Temperature 98.1 F 97.7 F Pulse Rate 89 107 H Respiratory Rate 16 20 H Blood Pressure 142/86 133/84 Pulse Oximetry 98 97
[2021-09-28 06:00] VITALS: RESP 17
[2021-09-28] MEDS: buPROPion XL (24 HR) 300 mg Tablet PO (06:09)
--- NOTE | 2021-09-28 07:41 | P.NPUHP_ITS ---
Providers/Chief Complaint Admitting Physician: Rupert Guzman MD Primary Care Provider: Sp Flowers MD Chief Complaint: SI HPI NPU History of Present Illness Real Black is a 31 year old male admitted to the neuropsychiatry unit for the following report. Mr. Black is a 31-year-old male with history of schizoaffective disorder presenting to the emergency department due to suicidal ideation and hallucinations.? He reports history of similar however had been doing well.? Symptoms started yesterday morning without known specific provoking factor.? He reports compliance with medication regimen and denies other associated significant changes in related depressive symptoms.? Intensity of hallucinations have been worsening.? They tell him to hurt himself.? He has had increased thoughts of hurting himself because of these voices.? Otherwise denies medical complaints.? No other specific changes in health, exacerbating, or alleviating factors identified. He was admitted to the neuropsychiatry unit for definitive treatment of these issues. He is well known to this unit with multiple admissions. The last admission was in June and at that time we changed him from Geodon to Invega and increased his Wellbutrin to 300 mg daily. He feels like those changes have been working well. He denies anything that could precipitate a worsening of his auditory hallucinations. He says he occasionally has flareups of his hallucinations but this is much worse than normal. He has been generally doing well since he left the hospital in June. He reported to his therapist and psychiatric nurse practitioner that he had been doing well in recent appointments. He denies any drug use. He [place] any stress [place]. He denies any family stress. He says that he has been compliant with medications. His mood has been fairly good. He requested that his Invega be increased. I agreed to do that for a couple of days and then reevaluate. Below is his discharge summary from the admission in June of this year. Discharge Diagnosis (1) Schizoaffective disorder, depressive type: ?Status:?Chronic (2) Suicidal ideation: ?Status:?Acute SI/HI? Brief History: Real Black is a 30 year old male who was admitted to our emergency department with the following report: 30-year-old male who has a long history of psychiatric issues states that over the last 2 to 3 days has been having suicidal thoughts with some homicidal thoughts over the last day.? He states he has no specific plan but since his med adjustments he just been having increased depression and suicidality.? He states he feels like he needs to be admitted to get help denies any drug or alcohol use denies any worsening improving factors. Associated symptoms: Reports homicidal ideation and suicidal ideation He was admitted to the neuropsychiatry unit for definitive treatment for these issues. He says that he has been doing well.? He had a anniversary outing with his girlfriend at [facility] as he told me he was going to do at the last admission.? He said that went great.? He and his girlfriend continue to get along very well.? He says that she is very supportive.? He saw his outpatient psychiatrist on June 03 and was doing well at that time no medication changes were made.? Very soon after that he started getting more depressed and hearing more auditory hallucinations.? He has started having suicidal ideations and even some homicidal ideations.? He brought himself to the emergency room because he felt that he was no longer safe.? He would like to increase his Geodon up to 60 mg twice a day.? He also asked about the Wellbutrin if that could be increased.? He has been on 150 mg for quite some time.? He agreed to increase that to 300 mg. He slowly acclimated to the individual, group and milieu therapies provided.? He wanted to change the Geodon to Invega wanted to take 3 mg because he frequently has hallucinations after dinner.? He also will increase the Wellbutrin 300.? He tolerated these doses and showed steady improvement during his stay. ? He was able to contract for safety outside hospital prior to discharge.? During the hospitalization, patient had routine laboratory studies which were within normal limits except for few outliers.? Additionally there was a general medical evaluation which was also within normal limits and revealed no new acute proces ses. Discharge Summary: At the time of discharge, lethality was denied and psychosis was resolving.? Mood and anxiety were well managed.? Patient endorsed a plan to follow-up with the aftercare recommendations of the treatment team.? Patient was evaluated and deemed to be absent credible lethality, and had achieved the maximum benefit from an inpatient hospitalization, so was discharged. ? Prescriptions: New ? bupropion HCl 300 mg Tablet Extended Release 24 Hr ?? 300 mg PO DAILY 30 Days Qty: 30 1RF ? paliperidone 3 mg Tablet Extended Release 24hr ?? 6 mg PO DAILY 30 Days Qty: 30 1RF ? paliperidone 3 mg Tablet Extended Release 24hr ?? 3 mg PO 1700 30 Days Qty: 30 1RF Continued ? omeprazole 20 mg capsule,delayed release(DR/EC) ?? 20 mg PO DAILY 0RF ? divalproex [Depakote ER] 500 mg tablet extended release 24 hr ?? 500 mg PO BID Qty: 60 1RF ?? Rx Instructions: ?? Take 1 tablet morning and bedtime ? hydroxyzine pamoate 25 mg capsule ?? 25 mg PO BID PRN (Reason: Anxiety) 0RF ?? Rx Instructions: ?? take one capsule by mouth twice daily, if needed for anxiety ? quetiapine 300 mg tablet ?? 300 mg PO BEDTIME Qty: 30 1RF ?? Rx Instructions: ?? Take 1 tablet daily at bedtime ? acetaminophen [Tylenol Extra Strength] 500 mg tablet ?? 1,000 mg PO Q6H PRN (Reason: Pain) 0RF ? metformin 500 mg tablet ?? 500 mg PO BID 0RF ?? Label Comments: ?? on hold ? cetirizine 10 mg tablet ?? 10 mg PO DAILY PRN (Reason: Allergy Symptoms) 0RF ? cyclobenzaprine 10 mg tablet ?? 10 mg PO BID PRN (Reason: Pain) 0RF ? ibuprofen 800 mg Tablet ?? 800 mg PO TID PRN (Reason: Pain) 0RF ? quetiapine [Seroquel] 100 mg Tablet ?? 100 mg PO DAILY PRN (Reason: Agitation) 0RF ? naproxen 500 mg Tablet ?? 500 mg PO BID PRN (Reason: Pain) 0RF ? metoprolol succinate 25 mg tablet extended release 24 hr ?? 25 mg PO DAILY 0RF ? levothyroxine [Levoxyl] 100 mcg Tablet ?? 100 mcg PO DAILY Qty: 0 0RF ? lisinopril 10 mg Tablet ?? 10 mg PO DAILY Qty: 0 0RF Meds NPU Home Medications Medication Instructions Recorded Confirmed Last Taken Type acetaminophen 500 mg tablet 1,000 mg PO Q6H PRN 08/03/20 09/28/21 11/04/20 09:00 History (Tylenol Extra Strength) metoprolol succinate 25 mg 25 mg PO DAILY 12/15/20 09/28/21 01/31/21 History tablet,extended release 24 hr levothyroxine 100 mcg tablet 100 mcg PO DAILY #0 tab 03/12/21 09/28/21 Unknown Rx (Levoxyl) lisinopril 10 mg tablet 10 mg PO DAILY #0 tab 03/12/21 09/28/21 Unknown Rx cetirizine 10 mg tablet 10 mg PO DAILY PRN 05/14/21 09/28/21 Unknown History cyclobenzaprine 10 mg tablet 10 mg PO BID PRN tab 05/14/21 09/28/21 Unknown History celecoxib 200 mg capsule (Celebrex) 200 mg PO BID PRN 07/01/21 09/28/21 Unknown History bupropion HCl 300 mg 24 hr tablet, 300 mg PO .q am #30 tab 08/26/21 09/28/21 Unknown Rx extended release divalproex 500 mg tablet,extended 500 mg PO BID #60 tab 08/26/21 09/28/21 Unknown Rx release 24 hr (Depakote ER) hydroxyzine pamoate 25 mg capsule 25 mg PO BID PRN #60 cap 08/26/21 09/28/21 Unknown Rx paliperidone 3 mg tablet,extended 3 mg PO 1700 30 Days #30 tab 08/26/21 09/28/21 Unknown Rx release 24 hr paliperidone 3 mg tablet,extended 6 mg PO DAILY #60 tab 08/26/21 09/28/21 Unknown Rx release 24 hr quetiapine 100 mg tablet (Seroquel) 100 mg PO DAILY PRN #30 tab 08/26/21 09/28/21 Unknown Rx quetiapine 300 mg tablet 300 mg PO .daily at 9 PM #30 tab 08/26/21 09/28/21 Unknown Rx omeprazole 20 mg capsule,delayed 20 mg PO DAILY 09/28/21 09/28/21 Unknown History release Allergies Allergy/AdvReac Type Severity Reaction Status Date / Time chlorpromazine Allergy Severe ALGY-Anaphy Verified 08/26/21 15:19 laxis haloperidol [From Haldol] Allergy Severe ALGY-Swell Verified 08/26/21 15:19 Lip/Tongue/Throat lurasidone [From Latuda] Allergy Severe ALGY-Swell Verified 08/26/21 15:19 Lip/Tongue/Throat olanzapine [From Zyprexa] Allergy Severe ALGY-Swell Verified 08/26/21 15:19 Lip/Tongue/Throat PFSH NPU PFSH: Medical History Depressive disorder Hallucination Psychiatric care Schizoaffective disorder, depressive type Family History Other Diabetes Hypertension Schizoaffective disorder, depressive type Social History Smoking and tobacco status: current every day smoker cigarettes Packs smoked per day: 1 Years cigarettes smoked: 12 Quit status (tobacco): has quit using tobacco Year quit tobacco: 10/21/2020 Former quit date comment: patient had been smoking for 10 years Second hand smoke exposure: Yes Alcohol intake: never Adopted: No Caregiver/support person: Yes Lives independently: No (Staying at [facility]) Household members: other Details: Multiple other residents at the facility. 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 Current occupational exposures/hazards: No Pets and animals: Yes Pets & animals: cat(s) History of recent travel: Yes (Just moved here from [place] in March.) Out of state: Yes Out of country: No Leisure activites: exercise, music, games and other Leisure activities details: watch TV Sexually active: No Current gender identity: Male Paola/Methodist: None Special paola needs: No Agree to transfusion: Yes Financial difficulty paying for basics: Not Very Hard Mental Status Exam MSE Comments: This is a 31-year-old obese male who appears approximately his stated age and is in no acute distress. He just woke up and is somewhat drowsy. He was pleasant and cooperative with the evaluation. He is dressed in hospital scrubs with poor grooming. psychomotor activity mildly decreased probably because he just woke up Speech is at a regular rate and rhythm, normal volume, good articulation, not pressured. Alert, oriented X3 Attention and concentration appear to be normal. Memory is intact Mood is depressed because of the voices being worse Affect is mildly dysphoric. Thought process is logical and goal-directed. Thought content: Admits to worsening auditory hallucinations which only started yesterday. The voices tell him to hurt himself. He denies visual hallucinations. No delusions or paranoia are noted. He reports suicidal ideation because of these voices He denies homicidal ideation. Fund of knowledge is probably below average. Insight and judgment appear to be fair. Impulse control is fair. Vitals/I&O/Wt Last Vital Signs Temp 97.7 F 09/28/21 04:17 Pulse 107 H 09/28/21 04:17 Resp 17 09/28/21 06:00 BP 133/84 09/28/21 04:17 Pulse Ox 97 09/28/21 04:17 Weight last 48 hrs Weight 105.596 kg Weight 104.326 kg Data NPU : 09/28/21 02:50 09/28/21 02:50 A&P Assessment and plan (1) Suicidal ideation: Status: Acute (2) Auditory hallucinations: Status: Acute (3) Schizoaffective disorder, depressive type: Status: Chronic Plan This is a 31-year-old male who reports a sudden increase in auditory hallucinations and subsequent suicidal ideation. Plan: 1. Continue current medication. Increase Invega to 9 mg every morning for the next 2 days. 2. Continue every 15 minute checks for safety. 3. Encourage individual, group and milieu therapies. 4. Encourage sober living treatment after discharge at the highest level of care to which he is willing to commit. 5. We will monitor for safety for himself in the community prior to discharge. Involuntary Hold Information 96 Hour Hold: 96 Hour Involuntary Admission: No Attestations NPU Medical Necessity Statement*: Inpatient hospitalization is medically necessary and the clinically appropriate intervention at this time. We will initiate medications and make changes as indicated. He will be in the hospital for over 2 midnights. Likely length of stay 4-6 days Coding Level of Care Code Acute Pointer Helper for Keny Ying Diagnoses Suicidal ideation R45.851 Auditory hallucinations R44.0 Schizoaffective disorder, depressive type F25.1
--- NOTE | 2021-09-28 07:42 | PC.NURSE ---
shift assessment pleasant with staff interaction, smiling at staff. said he is hearing voices this nurse asked if they are saying to harm himself, pt replied they might be but pt did contract for safety, no plan on how he could/would hurt himself.
[2021-09-28] MEDS: divalproex ER 500 mg Tablet (24H) PO ×2 (09:22→20:00)
[2021-09-28] MEDS: lisinopril 10 mg Tablet PO (09:23)
[2021-09-28] MEDS: metoprolol succinate ER (24 HR) 25 mg Tablet PO (09:23)
[2021-09-28] MEDS: paliperidone ER 3 mg Tablet 9 MG PO (09:23)
[2021-09-28] MEDS: levothyroxine 100 mcg Tablet PO (09:23)
[2021-09-28] MEDS: pantoprazole DR 40 mg Tablet PO (09:23)
[2021-09-28] MEDS: nicotine 2 mg Gum BUCCAL ×3 (13:55→19:59)
[2021-09-28 14:00] VITALS: BP 137/82; PULSE 109; RESP 18; TEMP 36.8; O2SAT 97
[2021-09-28] MEDS: paliperidone ER 3 mg Tablet PO (16:41)
[2021-09-28 19:55] VITALS: BP 118/74; PULSE 92; RESP 16; TEMP 36.5; O2SAT 94
[2021-09-28] MEDS: quetiapine 300 mg Tablet PO (20:00)
[2021-09-28] MEDS: trazodone 50 mg Tablet PO (20:01)
[2021-09-28] MEDS: hyDROXYzine 25 mg Capsule 50 MG PO (21:01)
[2021-09-28] MEDS: quetiapine 100 mg Tablet PO (21:01)
[2021-09-29] MEDS: buPROPion XL (24 HR) 300 mg Tablet PO (05:57)
[2021-09-29 06:00] VITALS: BP 117/77; PULSE 99; RESP 16; TEMP 36.6; O2SAT 94
--- NOTE | 2021-09-29 09:19 | PC.NURSE ---
PT DISHOVELED. AROUSES TO VOICE. DENIES SI/HI AND VH AT THIS TIME. DOES ENDORSE HEARING VOICES THAT TELL HIM TO HARM HIMSELF. STATES THE VOICES ARE NOT BAD THEY USUALLY ARE. I WILL TELL YOU WHEN THEY GET BAD. PT CONTRACTED FOR SAFETY EVEN THOUGH HE DENIES SI AT THIS TIME. DENIES PAIN. SUPPORT VOICED.
[2021-09-29] MEDS: pantoprazole DR 40 mg Tablet PO (09:57)
[2021-09-29] MEDS: divalproex ER 500 mg Tablet (24H) PO ×2 (09:57→20:00)
[2021-09-29] MEDS: metoprolol succinate ER (24 HR) 25 mg Tablet PO (09:57)
[2021-09-29] MEDS: levothyroxine 100 mcg Tablet PO (09:58)
[2021-09-29] MEDS: lisinopril 10 mg Tablet PO (09:58)
[2021-09-29] MEDS: cyclobenzaprine 10 mg Tablet PO (09:58)
[2021-09-29] MEDS: cetirizine 10 mg Tablet PO (09:58)
[2021-09-29] MEDS: paliperidone ER 3 mg Tablet 9 MG PO (09:58)
[2021-09-29] MEDS: nicotine 2 mg Gum BUCCAL ×4 (09:58→19:59)
[2021-09-29] MEDS: CELEcoxib 200 mg Capsule PO (09:59)
--- NOTE | 2021-09-29 10:18 | P.NPUPN_ITS ---
Subjective NPU Subjective: He says that the voices are better but not gone completely. He had some suicidal ideations yesterday but not today. He would prefer taking the extra 3 mg of Invega at the afternoon dose instead of 9 mg in the morning. He thinks he will need that ongoing. We will change to that tomorrow. Mental Status Exam MSE Comments: This is a 31-year-old obese male who appears approximately his stated age and is in no acute distress. He just woke up and is somewhat drowsy. He was pleasant and cooperative with the evaluation. He is dressed in hospital scrubs with poor grooming. psychomotor activity mildly decreased probably because he just woke up Speech is at a regular rate and rhythm, normal volume, good articulation, not pressured. Alert, oriented X3 Attention and concentration appear to be normal. Memory is intact Mood is depressed but better affect is very mildly dysphoric. Thought process is logical and goal-directed. Thought content: Admits to worsening auditory hallucinations but they are better than yesterday. The voices tell him to hurt himself. He denies visual hallu cinations. No delusions or paranoia are noted. He reports suicidal ideation because of these voices He denies homicidal ideation. Fund of knowledge is probably below average. Insight and judgment appear to be fair. Impulse control is fair. Cognition: Patient Appearance: Appears Older than Age and Disheveled/Poor Hygiene Level of Consciousness: Awake, Alert, Appropriate and Follows Commands Patient Cognition Impaired: No Ability to Follow Directions: Good Patient Orientation (long list): Person, Place, Time, Name and Age Comprehension Ability: No Impairment Hallucination Type: Auditory Delusion Description: Somatic Thought Process: Disorganized, Indecisive and Loose Associations Affect: Affect Description: Calm, Depressed, Flat and Guarded Behavior: Patient Behavior: Cooperative and Withdrawn Speech Pattern: Appropriate Vitals/I&O/Wt Last Vital Signs Temp 98 F 09/29/21 06:00 Pulse 99 09/29/21 06:00 Resp 16 09/29/21 06:00 BP 117/77 09/29/21 06:00 Pulse Ox 94 09/29/21 06:00 Weight last 48 hrs Weight 105.596 kg Weight 104.326 kg Data NPU : 09/28/21 02:50 09/28/21 02:50 A&P Assessment and plan (1) Suicidal ideation: Status: Acute (2) Auditory hallucinations: Status: Acute (3) Schizoaffective disorder, depressive type: Status: Chronic Plan This is a 31-year-old male who reports a sudden increase in auditory hallucinations and subsequent suicidal ideation. Plan: 1. Continue current medication. Increase Invega 6 mg twice a day 2. Continue every 15 minute checks for safety. 3. Encourage individual, group and milieu therapies. 4. Encourage sober living treatment after discharge at the highest level of care to which he is willing to commit. 5. We will monitor for safety for himself in the community prior to discharge. Involuntary Hold Information 96 Hour Hold: 96 Hour Involuntary Admission: No Attestations NPU Medical Necessity Statement*: Inpatient hospitalization is medically necessary and the clinically appropriate intervention at this time. We will initiate medications and make changes as indicated. Coding Level of Care Code Acute Tools Programmer for Keny Ying Diagnoses Suicidal ideation R45.851 Auditory hallucinations R44.0 Schizoaffective disorder, depressive type F25.1
[2021-09-29 14:00] VITALS: BP 136/84; PULSE 100; RESP 20; TEMP 36.5; O2SAT 96
[2021-09-29] MEDS: benztropine 1 mg Tablet PO (14:12)
--- NOTE | 2021-09-29 14:13 | PC.NURSE ---
PRN MEDICATION PT REPORTS SIDE EFFECTS FROM HAVING INVEGA INCREASED THIS AM. REPORTS HE IS NOW INCONTINENT AND REQUEST A PULL UP TYPE BRIEF. WHEN RN ASKED WHAT OTHER SIDE EFFECTS PT IS HAVING, STATES, YOU KNOW JUST SIDE EFFECTS, THIS HAPPENED BEFORE WHEN I WAS HERE. PT STATES HE WOULD LIKE SOMETHING FOR THE SIDE EFFECTS. THIS RN ASKED IF HE NEEDED SOMETHING FOR ANXIETY PT STATES HE WOULD RATHER HAVE COGENTIN. COGENTIN GIVEN ORDERED.
--- NOTE | 2021-09-29 14:50 | PC.NURSE ---
NEW ORDERS PT CONTINUES TO C/O OD INCONTINENCE 2 MORE EPISODES SINCE PT HAS TAKEN COGENTIN. NOTIFIED DR. SPRAGUE OF NEW URINARY INCONTINENCE. NEW ORDERS RECEIVED TO HOLD 1700 DOSE OF 3 MG INVEGA AND COLLECT UA AND CS. ORDERS PLACED, PT NOTIFIED.
[2021-09-29 15:23] LABS: Add Urine Microscopic? NO; Charge for UA Resulting for Rev
[2021-09-29 15:44] LABS: Urine Appearance Clear (CLEAR); Urine Color Colorless (Yellow); pH Urine 7 (5-7)
[2021-09-29 15:45] LABS: Bilirubin Urine Neg (Negative); Blood Urine Neg (Negative); Glucose Urine UA Norm (Normal); Ketones Urine Negative (Negative); Leukocyte Esterase Urine Negative (Negative); Nitrate Urine Negative (Negative); Protein Urine Neg (Negative); Urobilinogen Urine Norm (Negative)
[2021-09-29] MEDS: quetiapine 100 mg Tablet PO (18:13)
[2021-09-29 19:56] VITALS: BP 121/78; PULSE 104; RESP 17; TEMP 36.7; O2SAT 95
[2021-09-29] MEDS: quetiapine 300 mg Tablet PO (20:00)
[2021-09-29] MEDS: hyDROXYzine 25 mg Capsule 50 MG PO (20:54)
--- NOTE | 2021-09-29 20:55 | PC.NURSE ---
PT CAME TO NURSES STATION C/O WORSENING AH, TELLING HIM TO HARM HIMSELF. PT WAS GIVEN VISTERIL, PRN DOSE. PT CONTRACTED TO SAFETY ON THE UNIT AND WILL LET STAFF KNOW IF AH CONTINUE.
[2021-09-30 06:00] VITALS: BP 114/73; PULSE 87; RESP 19; TEMP 36.8; O2SAT 95
[2021-09-30] MEDS: buPROPion XL (24 HR) 300 mg Tablet PO (06:05)
[2021-09-30] MEDS: paliperidone ER 6 mg Tablet PO ×2 (09:03→16:36)
[2021-09-30] MEDS: nicotine 2 mg Gum BUCCAL ×2 (09:03→12:58)
[2021-09-30] MEDS: levothyroxine 100 mcg Tablet PO (09:03)
[2021-09-30] MEDS: divalproex ER 500 mg Tablet (24H) PO ×2 (09:03→20:13)
[2021-09-30] MEDS: hyDROXYzine 25 mg Capsule PO (09:04)
[2021-09-30] MEDS: metoprolol succinate ER (24 HR) 25 mg Tablet PO (09:04)
[2021-09-30] MEDS: benztropine 1 mg Tablet PO ×2 (09:04→17:46)
[2021-09-30] MEDS: lisinopril 10 mg Tablet PO (09:04)
[2021-09-30] MEDS: pantoprazole DR 40 mg Tablet PO (09:04)
[2021-09-30] MEDS: CELEcoxib 200 mg Capsule PO (09:04)
[2021-09-30] MEDS: cyclobenzaprine 10 mg Tablet PO (09:04)
[2021-09-30] MEDS: cetirizine 10 mg Tablet PO (09:04)
--- NOTE | 2021-09-30 12:03 | W.PM.NPUPNS ---
Subjective NPU Subjective: He had some incontinence yesterday and was given Cogentin and that seemed to help. He says that he thinks 9 mg in the morning is too much and is confident that 6 mg twice a day will be fine. He says that he does not hear any voices at all today. His mood is good. He denies any suicidal ideation. He feels like he will be ready for discharge tomorrow morning. Mental Status Exam MSE Comments: This is a 31-year-old obese male who appears approximately his stated age and is in no acute distress. He was pleasant and cooperative with the evaluation. He is dressed in hospital scrubs with poor grooming. psychomotor activity very mildly decreased Speech is at a regular rate and rhythm, normal volume, good articulation, not pressured. Alert, oriented X3 Attention and concentration appear to be normal. Memory is intact Mood is is good. Affect is euthymic. Thought process is logical and goal-directed. Thought content: He denies any auditory hallucinations. He denies visual hallucinations. He denies visual hallucinations. No delusions or paranoia are noted. He reports suicidal ideation because of these voices He denies homicidal ideation. Fund of knowledge is probably below average. Insight and judgment appear to be fair. Impulse control is fair. Cognition: Patient Appearance: Appears Older than Age and Disheveled/Poor Hygiene Level of Consciousness: Awake, Alert, Appropriate and Follows Commands Patient Cognition Impaired: No Ability to Follow Directions: Good Patient Orientation (long list): Person, Place, Time, Name and Age Comprehension Ability: No Impairment Hallucination Type: Auditory Delusion Description: Somatic Thought Process: Disorganized, Indecisive and Loose Associations Affect: Affect Description: Calm, Depressed, Flat and Guarded Behavior: Patient Behavior: Cooperative and Withdrawn Speech Pattern: Appropriate Vitals/I&O/Wt Last Vital Signs Temp 98.2 F 09/30/21 06:00 Pulse 87 09/30/21 06:00 Resp 19 H 09/30/21 06:00 BP 114/73 09/30/21 06:00 Pulse Ox 95 09/30/21 06:00 Data NPU : 09/28/21 02:50 09/28/21 02:50 A&P Assessment and plan (1) Suicidal ideation: Status: Acute (2) Auditory hallucinations: Status: Acute (3) Schizoaffective disorder, depressive type: Status: Chronic Plan This is a 31-year-old male who reports a sudden increase in auditory hallucinations and subsequent suicidal ideation. Plan: 1. Continue current medication. Increase Invega 6 mg twice a day 2. Continue every 15 minute checks for safety. 3. Encourage individual, group and milieu therapies. 4. Encourage sober living treatment after discharge at the highest level of care to which he is willing to commit. 5. We will monitor for safety for himself in the community prior to discharge. Involuntary Hold Information 96 Hour Hold: 96 Hour Involuntary Admission: No Attestations NPU Medical Necessity Statement*: Inpatient hospitalization is medically necessary and the clinically appropriate intervention at this time. We will initiate medications and make changes as indicated. Coding Level of Care Code Acute Software Licensing Analyst for Keny Ying Diagnoses Suicidal ideation R45.851 Auditory hallucinations R44.0 Schizoaffective disorder, depressive type F25.1
[2021-09-30 14:00] VITALS: BP 117/81; PULSE 108; RESP 18; TEMP 36.5; O2SAT 97
[2021-09-30] MEDS: acetaminophen 500 mg Tablet 1000 MG PO (14:38)
[2021-09-30] MEDS: quetiapine 100 mg Tablet PO (15:52)
[2021-09-30] MEDS: quetiapine 300 mg Tablet PO (20:13)
[2021-09-30 20:42] VITALS: BP 119/80; PULSE 127; RESP 16; TEMP 36.8; O2SAT 97
[2021-09-30] MEDS: trazodone 50 mg Tablet PO (21:23)
[2021-09-30] MEDS: hyDROXYzine 25 mg Capsule 50 MG PO (21:23)
--- NOTE | 2021-10-01 | PC.NURSE ---
PT UP AT START OF SHIFT. INITIALLY DENIED HAVING ANY AVH, STATING THAT THE INCREASE IN MEDS HAD ELIMINATED THAT. DID REPORT HAVING AN EPISODE OF URINARY INCONTINENCE. PT DENIES SI/HI. PT RETURNED AT 2119 TO REPORT THAT AH HAD RETURNED. TOOK PRN VISTARIL AND TRAZODONE AT THAT. NO FURTHER C/O VOICED.
[2021-10-01 06:00] VITALS: BP 142/90; PULSE 95; RESP 18; TEMP 36.6; O2SAT 98
[2021-10-01] MEDS: buPROPion XL (24 HR) 300 mg Tablet PO (06:22)
[2021-10-01] MEDS: pantoprazole DR 40 mg Tablet PO (06:22)
[2021-10-01] MEDS: paliperidone ER 6 mg Tablet PO ×2 (06:22→16:29)
[2021-10-01] MEDS: nicotine 2 mg Gum BUCCAL ×2 (06:41→15:44)
--- NOTE | 2021-10-01 07:29 | P.NPUPN_ITS ---
Subjective NPU Subjective: He had 2 more episodes of enuresis last night. The Cogentin seems to help it but he has dry mouth. He had a similar problem with Geodon. He says that he is allergic to Latuda, Haldol and Zyprexa. He has been on Risperdal and Abilify before but was taken off of them for reasons he does not remember. We do not have any of the other newer ones on the formulary. He agreed to add Cogentin 1 mg twice a day. Mental Status Exam MSE Comments: This is a 31-year-old obese male who appears approximately his stated age and is in no acute distress. He was pleasant and cooperative with the evaluation. He is dressed in hospital scrubs with poor grooming. psychomotor activity very mildly decreased Speech is at a regular rate and rhythm, normal volume, good articulation, not pressured. Alert, oriented X3 Attention and concentration appear to be normal. Memory is intact Mood is is good. Affect is euthymic. Thought process is logical and goal-directed. Thought content: He denies any auditory hallucinations. He denies visual hallucinations. No delusions or paranoia are noted. He reports suicidal ideation because of these voices He denies homicidal ideation. Fund of knowledge is probably below average. Insight and judgment appear to be fair. Impulse control is fair. Cognition: Patient Appearance: Appears Older than Age and Disheveled/Poor Hygiene Level of Consciousness: Awake, Alert, Appropriate and Follows Commands Patient Cognition Impaired: No Ability to Follow Directions: Good Patient Orientation (long list): Person, Place, Time, Name and Age Comprehension Ability: No Impairment Hallucination Type: Auditory Delusion Description: Somatic Thought Process: Disorganized, Indecisive and Loose Associations Affect: Affect Description: Calm Behavior: Patient Behavior: Appropriate Speech Pattern: Appropriate Vitals/I&O/Wt Last Vital Signs Temp 98 F 10/01/21 06:00 Pulse 95 10/01/21 06:00 Resp 18 10/01/21 06:00 BP 142/90 10/01/21 06:00 Pulse Ox 98 10/01/21 06:00 Data NPU : 09/28/21 02:50 09/28/21 02:50 A&P Assessment and plan (1) Suicidal ideation: Status: Acute (2) Auditory hallucinations: Status: Acute (3) Schizoaffective disorder, depressive type: Status: Chronic Plan This is a 31-year-old male who reports a sudden increase in auditory hallucinations and subsequent suicidal ideation. Plan: 1. Continue current medication. Increase Invega 6 mg twice a day. Add Cogentin 1 mg twice a day. 2. Continue every 15 minute checks for safety. 3. Encourage individual, group and milieu therapies. 4. Encourage sober living treatment after discharge at the highest level of care to which he is willing to commit. 5. We will monitor for safety for himself in the community prior to discharge. Involuntary Hold Information 96 Hour Hold: 96 Hour Involuntary Admission: No Attestations NPU Medical Necessity Statement*: Inpatient hospitalization is medically necessary and the clinically appropriate intervention at this time. We will initiate medications and make changes as indicated. Coding Level of Care Code Acute Processing Specialist for Keny Ying Diagnoses Suicidal ideation R45.851 Auditory hallucinations R44.0 Schizoaffective disorder, depressive type F25.1
[2021-10-01] MEDS: metoprolol succinate ER (24 HR) 25 mg Tablet PO (08:48)
[2021-10-01] MEDS: cyclobenzaprine 10 mg Tablet PO (08:48)
[2021-10-01] MEDS: CELEcoxib 200 mg Capsule PO (08:48)
[2021-10-01] MEDS: lisinopril 10 mg Tablet PO (08:48)
[2021-10-01] MEDS: hyDROXYzine 25 mg Capsule PO (08:48)
[2021-10-01] MEDS: divalproex ER 500 mg Tablet (24H) PO ×2 (08:48→20:34)
[2021-10-01] MEDS: cetirizine 10 mg Tablet PO (08:48)
[2021-10-01] MEDS: levothyroxine 100 mcg Tablet PO (08:49)
[2021-10-01] MEDS: benztropine 1 mg Tablet PO ×2 (08:59→16:30)
--- NOTE | 2021-10-01 11:25 | DCPLANNER ---
IMM completed with pt on 10/01/21 @ 1665. Pt was given a copy of rights and stated he understood his rights.
[2021-10-01 14:00] VITALS: BP 134/79; PULSE 95; RESP 18; TEMP 36.6; O2SAT 96
[2021-10-01 20:04] VITALS: BP 113/73; PULSE 98; RESP 15; O2SAT 95
[2021-10-01] MEDS: quetiapine 300 mg Tablet PO (20:34)
[2021-10-01] MEDS: trazodone 50 mg Tablet PO (20:53)
--- NOTE | 2021-10-01 21:57 | PC.NURSE ---
PT REQUESTED SOMETHING TO HELP HIM SLEEP TONIGHT. TRAZADONE 50MG WAS GIVEN.
[2021-10-02 06:00] VITALS: BP 122/79; PULSE 96; RESP 18; O2SAT 98
[2021-10-02] MEDS: paliperidone ER 6 mg Tablet PO ×2 (06:04→16:21)
[2021-10-02] MEDS: pantoprazole DR 40 mg Tablet PO (06:04)
[2021-10-02] MEDS: buPROPion XL (24 HR) 300 mg Tablet PO (06:04)
--- NOTE | 2021-10-02 08:38 | P.NPUPN_ITS ---
Subjective NPU Subjective: He says the voices started again fairly soon after we talked yesterday. They tell him to hurt himself. He has not felt suicidal. He has been able to resist them. He feels like since he has the Cogentin now we can increase the Invega without worrying about enuresis. He feels like the Invega is a good medication for him and would like to stick with that and increase it to 15 mg daily. Mental Status Exam MSE Comments: This is a 31-year-old obese male who appears approximately his stated age and is in no acute distress. He was pleasant and cooperative with the evaluation. He is dressed in hospital scrubs with poor grooming. He is in bed at 8:30 AM. psychomotor activity mildly decreased Speech is at a regular rate and rhythm, normal volume, good articulation, not pressured. Alert, oriented X3 Attention and concentration appear to be normal. Memory is intact Mood is is good. Affect is mildly dysphoric. Thought process is logical and goal-directed. Thought content: He reports renewed auditory hallucinations telling him to harm himself. He denies visual hallucinations. No delusions or paranoia are noted. He denies suicidal ideation. He denies homicidal ideation. Fund of knowledge is probably below average. Insight and judgment appear to be fair. Impulse control is fair. Cognition: Patient Appearance: Appears Older than Age and Disheveled/Poor Hygiene Level of Consciousness: Awake, Alert, Appropriate and Follows Commands Patient Cognition Impaired: No Ability to Follow Directions: Good Patient Orientation (long list): Person, Place, Time, Name and Age Comprehension Ability: No Impairment Hallucination Type: Auditory Delusion Description: Somatic Thought Process: Disorganized, Indecisive and Loose Associations Affect: Affect Description: Calm Behavior: Patient Behavior: Appropriate and Cooperative Speech Pattern: Appropriate and Clear Vitals/I&O/Wt Last Vital Signs Temp 97.8 F 10/01/21 14:00 Pulse 96 10/02/21 06:00 Resp 18 10/02/21 06:00 BP 122/79 10/02/21 06:00 Pulse Ox 98 10/02/21 06:00 Data NPU : 09/28/21 02:50 09/28/21 02:50 A&P Assessment and plan (1) Suicidal ideation: Status: Acute (2) Auditory hallucinations: Status: Acute (3) Schizoaffective disorder, depressive type: Status: Chronic Plan This is a 31-year-old male who reports a sudden increase in auditory hallucinations and subsequent suicidal ideation. Plan: 1. Continue current medication. Increase Invega 15 mg daily. Add Cogentin 1 mg twice a day. 2. Continue every 15 minute checks for safety. 3. Encourage individual, group and milieu therapies. 4. Encourage sober living treatment after discharge at the highest level of care to which he is willing to commit. 5. We will monitor for safety for himself in the community prior to discharge. Involuntary Hold Information 96 Hour Hold: 96 Hour Involuntary Admission: No Attestations NPU Medical Necessity Statement*: Inpatient hospitalization is medically necessary and the clinically appropriate intervention at this time. We will initiate medications and make changes as indicated. Coding Level of Care Code Acute Injection Mold Technician for Keny Ying Diagnoses Suicidal ideation R45.851 Auditory hallucinations R44.0 Schizoaffective disorder, depressive type F25.1
[2021-10-02] MEDS: metoprolol succinate ER (24 HR) 25 mg Tablet PO (08:40)
[2021-10-02] MEDS: levothyroxine 100 mcg Tablet PO (08:40)
[2021-10-02] MEDS: lisinopril 10 mg Tablet PO (08:40)
[2021-10-02] MEDS: acetaminophen 325 mg Tablet 650 MG PO (08:40)
[2021-10-02] MEDS: divalproex ER 500 mg Tablet (24H) PO ×2 (08:43→20:07)
--- NOTE | 2021-10-02 09:40 | PC.NURSE ---
DENIES SI/HI AND VH AT THIS TIME. CONTINUES TO HEAR VOICES TO HURT SELF. BUT STATES HE IS NOT SUICDIAL. DENIES PAIN. CONTRACTED FOR SAFETY DUE TO HEARING VOICES TELLING HIM TO HARM SELF.
[2021-10-02] MEDS: nicotine 2 mg Gum BUCCAL ×2 (11:03→14:58)
[2021-10-02] MEDS: paliperidone ER 3 mg Tablet PO (11:03)
[2021-10-02] MEDS: hyDROXYzine 25 mg Capsule PO (12:34)
[2021-10-02 14:00] VITALS: BP 119/77; PULSE 105; RESP 16; TEMP 36.4; O2SAT 94
[2021-10-02] MEDS: benztropine 1 mg Tablet PO (16:21)
[2021-10-02] MEDS: acetaminophen 500 mg Tablet 1000 MG PO (19:23)
[2021-10-02 19:46] VITALS: BP 133/79; PULSE 105; RESP 20; TEMP 36.8; O2SAT 96
[2021-10-02] MEDS: quetiapine 300 mg Tablet PO (20:07)
[2021-10-02] MEDS: trazodone 50 mg Tablet PO (20:07)
[2021-10-02] MEDS: hyDROXYzine 25 mg Capsule 50 MG PO (20:40)
--- NOTE | 2021-10-02 23:00 | PC.NURSE ---
PT UP AND IN [employer] IN BEGINNING OF SHIFT. REPORTS THAT INCREASE OF MEDS HAVE BEEN EFFECTIVE AND THAT HE HAS NOT HAD AVH TODAY. DENIES ANY SI/HI. AT 2039 PT DID REPORT THAT HE HAD INCREASED ANXIETY AND TOOK PRN VISTARIL. PT HAS BEEN WATCHING MOVIE IN DAYROOM AFTER THIS. NO FURTHER C/O VOICED.
[2021-10-03 06:00] VITALS: BP 125/82; PULSE 89; RESP 16; TEMP 36.4; O2SAT 94
[2021-10-03] MEDS: benztropine 1 mg Tablet PO (06:21)
[2021-10-03] MEDS: buPROPion XL (24 HR) 300 mg Tablet PO (06:21)
[2021-10-03] MEDS: pantoprazole DR 40 mg Tablet PO (06:21)
[2021-10-03] MEDS: paliperidone ER 3 mg Tablet 9 MG PO (06:21)
--- NOTE | 2021-10-03 06:53 | P.NPUPN_ITS ---
Subjective NPU Subjective: He says that the extra 3 mg of Invega yesterday morning helped the voices. He said the voices were very good for the rest of the day. He did not have any urinary incontinence. He says that he would be ready to go home but I cannot get him a ride back until tomorrow. Mental Status Exam MSE Comments: This is a 31-year-old obese male who appears approximately his stated age and is in no acute distress. He was pleasant and cooperative with the evaluation. He is dressed in hospital scrubs with poor grooming. He was up in the hallway at 6:45 AM. psychomotor activity mildly decreased Speech is at a regular rate and rhythm, normal volume, good articulation, not pressured. Alert, oriented X3 Attention and concentration appear to be normal. Memory is intact Mood is is good. Affect is mildly dysphoric. Thought process is logical and goal-directed. Thought content: He currently denies auditory hallucinations he denies visual hallucinations. No delusions or paranoia are noted. He denies suicidal ideation. He denies homicidal ideation. Fund of knowledge is probably below average. Insight and judgment appear to be fair. Impulse control is fair. Cognition: Patient Appearance: Appears Older than Age and Disheveled/Poor Hygiene Level of Consciousness: Awake, Alert, Appropriate and Follows Commands Patient Cognition Impaired: No Ability to Follow Directions: Good Patient Orientation (long list): Person, Place, Time, Name and Age Comprehension Ability: No Impairment Hallucination Type: None Delusion Description: Somatic Thought Process: Disorganized, Indecisive and Loose Associations Affect: Affect Description: Calm Behavior: Patient Behavior: Appropriate Speech Pattern: Appropriate and Clear Vitals/I&O/Wt Last Vital Signs Temp 97.6 F 10/03/21 06:00 Pulse 89 10/03/21 06:00 Resp 16 10/03/21 06:00 BP 125/82 10/03/21 06:00 Pulse Ox 94 10/03/21 06:00 Weight last 48 hrs Weight 103.691 kg Weight 103.691 kg Data NPU : 09/28/21 02:50 09/28/21 02:50 A&P Assessment and plan (1) Suicidal ideation: Status: Acute (2) Auditory hallucinations: Status: Acute (3) Schizoaffective disorder, depressive type: Status: Chronic Plan This is a 31-year-old male who reports a sudden increase in auditory hallucinations and subsequent suicidal ideation. Plan: 1. Continue current medication. Increase Invega 15 mg daily. Add Cogentin 1 mg twice a day. 2. Continue every 15 minute checks for safety. 3. Encourage individual, group and milieu therapies. 4. Encourage sober living treatment after discharge at the highest level of care to which he is willing to commit. 5. We will monitor for safety for himself in the community prior to discharge. Involuntary Hold Information 96 Hour Hold: 96 Hour Involuntary Admission: No Attestations NPU Medical Necessity Statement*: Inpatient hospitalization is medically necessary and the clinically appropriate intervention at this time. We will initiate medications and make changes as indicated. Coding Level of Care Code Acute Managed Services Sales Consultant for Keny Ying Diagnoses Suicidal ideation R45.851 Auditory hallucinations R44.0 Schizoaffective disorder, depressive type F25.1
[2021-10-03] MEDS: levothyroxine 100 mcg Tablet PO (08:48)
[2021-10-03] MEDS: lisinopril 10 mg Tablet PO (08:48)
[2021-10-03] MEDS: metoprolol succinate ER (24 HR) 25 mg Tablet PO (08:48)
[2021-10-03] MEDS: divalproex ER 500 mg Tablet (24H) PO (08:48)
[2021-10-03] MEDS: nicotine 2 mg Gum BUCCAL (08:49)
[2021-10-03] MEDS: hyDROXYzine 25 mg Capsule 50 MG PO (11:27)
--- NOTE | 2021-10-03 11:27 | PC.NURSE ---
PRN VISTARIL 50 MG GIVEN PO PER PT C/O STATED ANXIETY. WHEN ASKED WHAT HE'S HAVING ANXIETY ABOUT PT SAID I DON'T KNOW, PROBABLY ABOUT GOING HOME TOMORROW. SMILING A LOT WITH STAFF INTERACTION, NO S/S OF ANXIETY NOTED
--- NOTE | 2021-10-03 13:56 | W.PM.NPUDCS ---
Diagnoses at Discharge Discharge Diagnosis (1) Suicidal ideation: Status: Acute (2) Auditory hallucinations: Status: Acute (3) Schizoaffective disorder, depressive type: Status: Chronic Reason for Visit Reason for Visit: SI Brief History: Real Black is a 31 year old male admitted to the neuropsychiatry unit for the following report. Mr. Black is a 31-year-old male with history of schizoaffective disorder presenting to the emergency department due to suicidal ideation and hallucinations.? He reports history of similar however had been doing well.? Symptoms started yesterday morning without known specific provoking factor.? He reports compliance with medication regimen and denies other associated significant changes in related depressive symptoms.? Intensity of hallucinations have been worsening.? They tell him to hurt himself.? He has had increased thoughts of hurting himself because of these voices.? Otherwise denies medical complaints.? No other specific changes in health, exacerbating, or alleviating factors identified. He was admitted to the neuropsychiatry unit for definitive treatment of these issues.? He is well known to this unit with multiple admissions.? The last admission was in June and at that time we changed him from Geodon to Invega and increased his Wellbutrin to 300 mg daily.? He feels like those changes have been working well.? He denies anything that could precipitate a worsening of his auditory hallucinations.? He says he occasionally has flareups of his hallucinations but this is much worse than normal.? He has been generally doing well since he left the hospital in June.? He reported to his therapist and psychiatric nurse practitioner that he had been doing well in recent appointments.? He denies any drug use.? He [place] any [place].? He denies any family stress.? He says that he has been compliant with medications.? His mood has been fairly good.? He requested that his Invega be increased.? I agreed to do that for a couple of days and then reevaluate. Hospital Course Hospital Course He slowly acclimated to the individual, group and milieu therapies provided. He was continued on his medications except for Invega was gradually increased to 9 mg in the morning and 6 mg at bedtime. He had urinary incontinence on 6 mg twice a day and Cogentin was added. He had a similar problem with Geodon. We talked about trying a different antipsychotic but he felt that Invega was good for him and wanted to try that with the Cogentin and increase the dose. He tolerated these doses and showed steady improvement during his stay. He was able to contract for safety outside hospital prior to discharge. During the hospitalization, patient had routine laboratory studies which were within normal limits except for few outliers. Additionally there was a general medical evaluation which was also within normal limits and revealed no new acute processes. Discharge Summary: At the time of discharge, lethality was denied and psychosis was resolving. Mood and anxiety were well managed. Patient endorsed a plan to follow-up with the aftercare recommendations of the treatment team. Patient was evaluated and deemed to be absent credible lethality, and had achieved the maximum benefit from an inpatient hospitalization, so was discharged. Involuntary Hold Information 96 Hour Hold: 96 Hour Involuntary Admission: No Mental Status Exam MSE Comments: This is a 31-year-old obese male who appears approximately his stated age and is in no acute distress. He was pleasant and cooperative with the evaluation. He is dressed in hospital scrubs with poor grooming. He was up in the hallway at 6:45 AM. psychomotor activity mildly decreased Speech is at a regular rate and rhythm, normal volume, good articulation, not pressured. Alert, oriented X3 Attention and concentration appear to be normal. Memory is intact Mood is is good. Affect is mildly dysphoric. Thought process is logical and goal-directed. Thought content: He currently denies auditory hallucinations he denies visual hallucinations. No delusions or paranoia are noted. He denies suicidal ideation. He denies homicidal ideation. Fund of knowledge is probably below average. Insight and judgment appear to be fair. Impulse control is fair. Cognition: Patient Appearance: Appears Older than Age and Disheveled/Poor Hygiene Level of Consciousness: Awake, Alert, Appropriate and Follows Commands Patient Cognition Impaired: No Ability to Follow Directions: Good Patient Orientation (long list): Person, Place, Time, Name and Age Comprehension Ability: No Impairment Hallucination Type: None Delusion Description: Not Present and Somatic Thought Process: Disorganized and Loose Associations Affect: Affect Description: Calm Behavior: Patient Behavior: Cooperative Speech Pattern: Clear Discharge Data Studies Completed and Pending: Laboratory Results WBC 7.3 10^3/uL (4.0- 10.0) 09/28/21 02:50 RBC 4.59 10^6/uL (4.1 -5.3) 09/28/21 02:50 Hgb 14.2 g/dL (11.7-1 6.6) 09/28/21 02:50 Hct 41.6 % (42.0-52.0 ) L 09/28/21 02:50 MCV 90.6 fl (80-94) 09/28/21 02:50 MCH 30.9 pg (28.0-34. 0) 09/28/21 02:50 MCHC 34.1 g/dL (30.0-3 6.0) 09/28/21 02:50 RDW 12.8 % (12.1-15.1 ) 09/28/21 02:50 Plt Count 218 10^3/cmm (130 -400) 09/28/21 02:50 MPV 10.0 fL (7.4-10.4 ) 09/28/21 02:50 Neut % (Auto) 48.7 % 09/28/21 02:50 Lymph % (Auto) 42.5 % 09/28/21 02:50 Stark % (Auto) 6.1 % 09/28/21 02:50 Eos % (Auto) 1.8 % 09/28/21 02:50 Baso % (Auto) 0.4 % 09/28/21 02:50 Neut # (Auto) 3.56 10^3/uL (1.8 -7.7) 09/28/21 02:50 Lymph # (Auto) 3.1 10^3/uL (0.8- 4.8) 09/28/21 02:50 Stark # (Auto) 0.5 10^3/uL (0.2- 0.9) 09/28/21 02:50 Eos # (Auto) 0.1 10^3/uL (0.0- 0.8) 09/28/21 02:50 Baso # (Auto) 0.0 10^3/uL (0.0- 0.1) 09/28/21 02:50 Nucleated RBC % (a uto) 0 % 09/28/21 02:50 Nucleated RBCs # 0.0 /100WBC 09/28/21 02:50 Sodium 139 mmol/L (136-1 45) 09/28/21 02:50 Potassium 3.7 mmol/L (3.5-5 .1) 09/28/21 02:50 Chloride 105 mmol/L (98-10 7) 09/28/21 02:50 Carbon Dioxide 23 mmol/L (22-29) 09/28/21 02:50 Anion Gap 14.7 (5-19) 09/28/21 02:50 BUN 10 mg/dL (6-20) 09/28/21 02:50 Creatinine 0.7 mg/dL (0.7-1. 2) 09/28/21 02:50 GFR Calculation 132.4 mL/min (90- 130) H 09/28/21 02:50 Glucose 110 mg/dL (65-115 ) 09/28/21 02:50 Calculated Osmolal ity 288 mOsm/kg (285- 295) 09/28/21 02:50 Calcium 8.9 mg/dL (8.5-10 .5) 09/28/21 02:50 Total Bilirubin 0.2 mg/dL (0.15-1 .2) 09/28/21 02:50 AST 19 U/L (0-40) 09/28/21 02:50 ALT 32 U/L (0-41) 09/28/21 02:50 Alkaline Phosphata se 41 IU/L (40-130) 09/28/21 02:50 Total Protein 7.3 g/dL (6.6-8.7 ) 09/28/21 02:50 Albumin 4.3 g/dL (3.5-5.2 ) 09/28/21 02:50 Globulin 3.0 g/dL (1.3-4.6 ) 09/28/21 02:50 TSH 4.34 uIU/mL (0.27 -4.20) H 09/28/21 02:50 Free T4 1.01 ng/dL (0.82- 1.77) 09/28/21 02:50 Urine Color Colorless (Yello w) 09/29/21 15:10 Urine Appearance Clear (CLEAR) 09/29/21 15:10 Urine pH 7 (5-7) 09/29/21 15:10 Ur Specific Gravit y 1.000 (1.005-1.0 30) L 09/29/21 15:10 Urine Protein Neg (Negative) 09/29/21 15:10 Urine Glucose (UA) Norm (Normal) 09/29/21 15:10 Urine Ketones Negative (Negati ve) 09/29/21 15:10 Urine Blood Neg (Negative) 09/29/21 15:10 Urine Nitrate Negative (Negati ve) 09/29/21 15:10 Urine Bilirubin Neg (Negative) 09/29/21 15:10 Urine Urobilinogen Norm mg/dL (Negat bryan) 09/29/21 15:10 Ur Leukocyte Unique ase Negative (Negati ve) 09/29/21 15:10 Salicylates < 0.3 mg/dL (3-10 ) L 09/28/21 02:50 Urine Opiates Scre en Negative ng/mL (N egative) 09/28/21 02:58 Acetaminophen < 5.0 ug/mL (10-3 0) L 09/28/21 02:50 Ur Barbiturates Sc reen Negative ng/mL (N egative) 09/28/21 02:58 Ur Phencyclidine S crn Negative ng/mL (N egative) 09/28/21 02:58 Ur Amphetamines Sc reen Negative ng/mL (N egative) 09/28/21 02:58 U Benzodiazepines Scrn Negative ng/mL (N egative) 09/28/21 02:58 Urine Cocaine Scre en Negative ng/mL (N egative) 09/28/21 02:58 U Marijuana (THC) Screen Negative ng/mL (N egative) 09/28/21 02:58 Ethyl Alcohol < 10 mg/dL (0-10) 09/28/21 02:50 Vitals: Last Vital Signs Temp 97.6 F 10/03/21 06:00 Pulse 89 10/03/21 06:00 Resp 16 10/03/21 06:00 BP 125/82 10/03/21 06:00 Pulse Ox 94 10/03/21 06:00 Discharge Plan Discharge Patient Disposition: Home Condition: Stable Prescriptions: New benztropine 1 mg Tablet 1 mg PO 0600,1700 30 Days Qty: 60 0RF paliperidone 3 mg Tablet Extended Release 24hr 9 mg PO 0600 30 Days Qty: 90 0RF paliperidone 6 mg Tablet Extended Release 24hr 6 mg PO 1700 30 Days Qty: 30 0RF Continued acetaminophen [Tylenol Extra Strength] 500 mg tablet 1,000 mg PO Q6H PRN (Reason: Pain) 0RF celecoxib [Celebrex] 200 mg capsule 200 mg PO BID PRN (Reason: Pain) 0RF cetirizine 10 mg tablet 10 mg PO DAILY PRN (Reason: Allergy Symptoms) 0RF cyclobenzaprine 10 mg tablet 10 mg PO BID PRN (Reason: Pain) 0RF quetiapine 300 mg tablet 300 mg PO .daily at 9 PM Qty: 30 1RF Rx Instructions: Take 1 tablet daily at 9 PM quetiapine [Seroquel] 100 mg tablet 100 mg PO DAILY PRN (Reason: Agitation/psychosis) Qty: 30 1RF Rx Instructions: Take one tablet daily, if needed for agiation/psychosis hydroxyzine pamoate 25 mg capsule 25 mg PO BID PRN (Reason: Anxiety) Qty: 60 1RF Rx Instructions: take one capsule by mouth twice daily, if needed for anxiety divalproex [Depakote ER] 500 mg tablet extended release 24 hr 500 mg PO BID Qty: 60 1RF Rx Instructions: Take 1 tablet morning and bedtime bupropion HCl 300 mg tablet extended release 24 hr 300 mg PO .q am Qty: 30 1RF Rx Instructions: Take one tablet daily every morning metoprolol succinate 25 mg tablet extended release 24 hr 25 mg PO DAILY 0RF levothyroxine [Levoxyl] 100 mcg Tablet 100 mcg PO DAILY Qty: 0 0RF lisinopril 10 mg Tablet 10 mg PO DAILY Qty: 0 0RF omeprazole 20 mg Capsule,Delayed Release(Dr/Ec) 20 mg PO DAILY 0RF Discontinued paliperidone 3 mg tablet extended release 24hr 6 mg PO DAILY Qty: 60 1RF Rx Instructions: Take two tablets (total of 6 mg) by mouth every morning paliperidone 3 mg tablet extended release 24hr 3 mg PO 1700 30 Days Qty: 30 1RF Rx Instructions: Take one tablet daily each evening Discharge Orders: Discharge Order (Routine); Ordered 10/03/21 Ordered By: Rupert Guzman Referrals: Patria Mckinney APRN [Nurse Practitioner] - 10/04/21 10:15 am Sp Flowers MD [Primary Care Provider] - Discharge Diet: Regular Discharge Activity: Resume usual activity Patient Instructions: Opioid Safety Discharge Attestations NPU Time Spent in Discharge Care*: less than 30 min Specific Discharge Activities: Specific discharge activities: educating patient, discussing with showcase trimmer/social workers/dc planners, documenting/other paperwork and evaluating patient/reviewing data Status at Discharge: Cognitive status at discharge: cognitively intact, Behavioral status at discharge: cooperative, Coding Level of Care Code Acute [facility] DC note Diagnoses Suicidal ideation R45.851 Auditory hallucinations R44.0 Schizoaffective disorder, depressive type F25.1
[2021-10-03 14:29] VITALS: BP 125/82; PULSE 89; RESP 16; TEMP 36.4; O2SAT 94
== END 2021-10-03 14:48 | disposition home or self-care (01) | DRG 885 ==
LOC: ER 03:50 → NP 04:06
PROVIDERS: Admitting Provider Psychiatry & Neurology Psychiatry; Emergency Provider Emergency Medicine; PCP Family Medicine; Visit Provider Psychiatry & Neurology Psychiatry
DX: F25.1 Schizoaffective disorder, depressive type (principal); R45.851 Suicidal ideations; F17.210 Nicotine dependence, cigarettes, uncomplicated
CPT/HCPCS: 80053; 80306; 80307; 81003; 84439; 84443; 85025; 97150; 97165; 99285

== ENCOUNTER → 2021-10-04 10:11 | Outpatient (BNVA) | payer MEDICARE, MEDICAID, SELFPAY ==
[2020-12-11 11:23] VITALS: BP 133/83; BMI 32.1
== END ==
PROVIDERS: PCP Family Medicine; Visit Provider Nurse Practitioner Psychiatric/Mental Health
DX: F25.1 Schizoaffective disorder, depressive type (principal); R44.0 Auditory hallucinations
CPT/HCPCS: 99213

== ENCOUNTER → 2021-12-02 10:45 | Outpatient (BNVA) | payer MEDICARE, OTHER, SELFPAY ==
[2020-12-11 11:23] VITALS: BP 133/83; BMI 32.1
== END ==
PROVIDERS: PCP Family Medicine; Visit Provider Nurse Practitioner Psychiatric/Mental Health
DX: F25.1 Schizoaffective disorder, depressive type (principal); Z79.899 Other long term (current) drug therapy
CPT/HCPCS: 80061; 83036; 83721

== ENCOUNTER 2022-03-28 02:09 | Emergency (ER) | payer MEDICARE, MEDICAID, SELFPAY ==
[2022-02-28 07:20] VITALS: BP 135/91; BMI 33.9
[2022-03-28 02:16] VITALS: BP 129/84; PULSE 98; RESP 15; TEMP 36.7; O2SAT 97
--- NOTE | 2022-03-28 02:25 | XRR_ITS ---
PROCEDURE INFORMATION: Exam: XR Right Ankle Exam date and time: 03/28/2022 2:37 AM Age: 31 years old Clinical indication: Injury or trauma; Fall; Blunt trauma; Foot; Right TECHNIQUE: Imaging protocol: Radiologic exam of the Right ankle. Views: 3 or more views. COMPARISON: No relevant prior studies available. FINDINGS: Bones/joints: Ossification/calcification over the Achilles tendon insertion on the posterior calcaneus consistent with enthesopathy. Soft tissues: Normal. XR/XR ankle RT min 3V* [id number] IMPRESSION: No acute findings.
--- NOTE | 2022-03-28 02:30 | ED_ITS ---
HPI - Extremity Problem General: Chief complaint: Extremity Injury, Lower Stated complaint: right ankle pain Time Seen by Provider: 03/28/22 02:25 History of Present Illness: 31-year-old male patient comes in today with injury to the right ankle. Patient reports that he had turned his ankle yesterday morning when he was stepping off a curb. Patient appears nontoxic. No obvious deformity is noted to the ankle. Patient points to his Achilles tendon has been tender. Associated symptoms: Deny fever(s) Review of Systems Const: Denies: fever(s) Musc: Reports: joint pain (Right ankle) PFS ED PFSH: Medical History Depressive disorder Hallucination Psychiatric care Schizoaffective disorder, depressive type Family History Other Diabetes Hypertension Schizoaffective disorder, depressive type Social History (Updated 12/02/21 @ 10:06 by Jessica Parsons RN) Smoking and tobacco status: current every day smoker e-cigarettes E-Cigarette Details: with nicotine E-cig/vape details: uses a 5000 puff disposable vape device Quit status (tobacco): not considering quitting Second hand smoke exposure: Yes Smoking risk assessment/counseling performed?: No Alcohol intake: never Adopted: No Caregiver/support person: Yes Lives independently: No (Staying at [facility]) Household members: other Details: Multiple other residents at the facility. Housing: Assisted Living Facility Marital status: Single Number of children: 0 Number of grandchildren: 0 Highest education level completed: High School Graduate service: No Current occupational status: disabled Current occupational exposures/hazards: No Pets and animals: Yes Pets & animals: cat(s) History of recent travel: No (Just moved here from [place] in March 2021) Leisure activites: exercise, music, games and other Leisure activities details: watch TV Sexually active: Yes How many partners: 1 Are you practicing safe sex: No Current gender identity: Male Paola/Bahai: Rastafarian Special paola needs: No Agree to transfusion: Yes Financial difficulty paying for basics: Not Very Hard Physical Exam Const: COMMON NORMALS: alert HENMT: COMMON NORMALS: normocephalic HEAD & SCALP: normocephalic Neck/C-Spine: COMMON NORMALS: full ROM Resp: COMMON NORMALS: normal respiratory effort and clear to auscultation bilaterally AUSCULTATION: clear to auscultation bilaterally Cardio: COMMON NORMALS: regular rate RATE: regular rate Extremity: RIGHT LOWER EXTREMITY: Yes foot & digits (No swelling no lateral or medial tenderness) Right ankle: Yes inspection, Yes palpation and Yes ROM and Yes foot & digits (Tenderness along the Achilles tendon, no rupture palpated) Right foot and digits: Yes inspection, Yes palpation and Yes ROM Neuro: SENSORIUM/ORIENTATION: Yes alert Skin: COMMON NORMALS: turgor normal GENERAL SKIN EXAM: turgor normal Course Vital Signs: Vital signs: Vital Signs Temperature 98.1 F 03/28/22 02:16 Pulse Rate 98 03/28/22 02:16 Respiratory Rate 15 03/28/22 02:16 Blood Pressure 129/84 03/28/22 02:16 Pulse Oximetry 97 03/28/22 02:16 Oxygen Delivery Me thod 03/28/22 02:16 MDM - Extremity (Nontraumatic) Medical Decision Making Patient comes in today for injury to the right ankle. On exam patient has some tenderness to the posterior ankle. No significant swelling or deformity is noted. Differential diagnosis includes sprain, fracture, tendon rupture, contusion. X-ray noted no acute fracture or dislocation. Reviewed exam with patient with recommendations for treatment and follow-up. Patient reported understanding agreed to plan. Discharge Plan Discharge Patient Disposition: Home Clinical Impression: Ankle sprain and strain Condition: Stable Prescriptions: No Action acetaminophen [Tylenol Extra Strength] 500 mg tablet 1,000 mg PO Q6H PRN (Reason: Pain) celecoxib [Celebrex] 200 mg capsule 200 mg PO BID PRN (Reason: Pain) cetirizine 10 mg tablet 10 mg PO DAILY PRN (Reason: Allergy Symptoms) cyclobenzaprine 10 mg tablet 10 mg PO BID PRN (Reason: Pain) bupropion HCl 300 mg tablet extended release 24 hr 300 mg PO .q am Qty: 30 2RF Rx Instructions: Take one tablet daily every morning divalproex [Depakote ER] 500 mg tablet extended release 24 hr 500 mg PO BID Qty: 60 2RF Rx Instructions: Take 1 tablet morning and bedtime hydroxyzine pamoate 25 mg capsule 25 mg PO BID PRN (Reason: Anxiety) Qty: 60 2RF Rx Instructions: take one capsule by mouth twice daily, if needed for anxiety melatonin 3 mg tablet See Rx Instructions PO .HS PRN (Reason: sleep) Qty: 60 2RF Rx Instructions: Take 1 or 2 tablets daily at 9 PM, if needed for sleep paliperidone 6 mg tablet extended release 24hr 6 mg PO .every evening Qty: 30 2RF Rx Instructions: Take one tablet by mouth every evening paliperidone 9 mg tablet extended release 24hr 9 mg PO QAM Qty: 30 2RF Rx Instructions: Take one tablet by mouth every morning quetiapine [Seroquel] 100 mg tablet 100 mg PO DAILY PRN (Reason: Agitation/psychosis) Qty: 30 2RF Rx Instructions: Take one tablet daily, if needed for agiation/psychosis quetiapine 300 mg tablet 300 mg PO .daily at 9 PM Qty: 30 2RF Rx Instructions: Take 1 tablet daily at 9 PM metoprolol succinate 25 mg tablet extended release 24 hr 25 mg PO DAILY levothyroxine [Levoxyl] 100 mcg Tablet 100 mcg PO DAILY Qty: 0 0RF lisinopril 10 mg Tablet 10 mg PO DAILY Qty: 0 0RF omeprazole 20 mg Capsule,Delayed Release(Dr/Ec) 20 mg PO DAILY Discharge Orders: Discharge ED (Routine); Ordered 03/28/22 Ordered By: Sherman Jones Referrals: Sp Flowers MD [Primary Care Provider] - Discharge Diet: Usual diet Discharge Activity: Increase activity as tolerated Patient Instructions: Ankle Sprain (ED) Activity Restrictions/Additional Instructions: Activity as tolerated. Use an elastic bandage for comfort. Use acetaminophen and ibuprofen for further pain relief. Use ice packs for further pain relief. Follow-up with primary care for further instruction. Return to ED for new concerns. Coding Level of Care Code ED Coordinator Of Genetic Services for Keny Fwd Exam Detailed
[2022-03-28 02:52] VITALS: BP 126/90; PULSE 88; RESP 16; O2SAT 96
[2022-03-28] MEDS: ibuprofen 800 mg tablet PO (03:01)
[2022-03-28 03:06] VITALS: BP 126/90; PULSE 97; RESP 16; O2SAT 97
== END 2022-03-28 03:08 | disposition home or self-care (01) ==
PROVIDERS: Emergency Provider Nurse Practitioner Family; PCP Family Medicine
DX: S93.401A Sprain of unspecified ligament of right ankle, initial encounter (principal); S96.911A Strain of unspecified muscle and tendon at ankle and foot level, right foot, initial encounter; F17.290 Nicotine dependence, other tobacco product, uncomplicated; X50.1XXA Overexertion from prolonged static or awkward postures, initial encounter
CPT/HCPCS: 73610; 99283

== ENCOUNTER 2022-04-30 23:31 | Emergency (ER) | payer MEDICARE, MEDICAID, SELFPAY ==
[2022-03-31 11:04] VITALS: BP 135/91; BMI 33.9
--- NOTE | 2022-04-30 23:42 | ECG_ITS ---
[facility] Test Date: 2022-05-01 Pat Name: Real Black Department: Room: Gender: Male Lab Courier: : 1990 Requested By: Noel Ocasio Order Number: [id number] Omero MD: Avery Branch M.D. Measurements Intervals [place] Rate: 95 P: 26 [place]: 173 QRS: 46 QRSD: 96 T: 40 QT: 357 QTc: 449 Interpretive Statements SINUS RHYTHM Compared to ECG 02/01/2021 04:23:21 No significant changes Electronically Signed On 05-01-2022 20:01:58 TEST DESK SUPERVISOR by Avery Branch M.D. [id number]
[2022-04-30 23:43] VITALS: BP 131/102; PULSE 100; RESP 20; TEMP 36.7; O2SAT 97; BMI 34.9
[2022-05-01 00:11] LABS: Add Urine Microscopic? NO; Charge for UA Resulting for Rev
[2022-05-01 00:13] LABS: Basophils % 0.4 %; Eosinophils # 0.1 10^3/uL (0.0-0.8); Eosinophils % 1.3 %; Hematocrit 40.5 % (42.0-52.0); Hemoglobin 14.3 g/dL (11.7-16.6); Lymphocytes # 2.3 10^3/uL (0.8-4.8); Lymphocytes % 40.2 %; Mean Corpuscular HGB Conc 35.3 g/dL (30.0-36.0); Mean Corpuscular Volume 90.6 fl (80-94); Mean Platelet Volume 10.2 fL (7.4-10.4); Monocytes # 0.5 10^3/uL (0.2-0.9); Monocytes % 8.9 %; Neutrophils # 2.75 10^3/uL (1.8-7.7); Nucleated Red Blood Cells % 0 %; Platelet Count 208 10^3/cmm (130-400); Red Blood Count 4.47 10^6/uL (4.1-5.3); Red Cell Distribution Width 12.4 % (12.1-15.1); White Blood Count 5.6 10^3/uL (4.0-10.0)
[2022-05-01 00:23] LABS: Amphetamines Screen Urine Negative (Negative); Barbiturates Screen Urine Negative (Negative); Benzodiazepines Screen Urine Negative (Negative); Cocaine Screen Urine Negative (Negative); Opiate Screen Urine Negative (Negative); PCP Screen Urine Negative (Negative); THC Screen Urine Positive (Negative)
[2022-05-01 00:35] LABS: SARS Covid-2 Antigen negative (Negative)
[2022-05-01 00:36] LABS: Bilirubin Urine Neg (Negative); Blood Urine Neg (Negative); Glucose Urine UA Norm (Normal); Ketones Urine Negative (Negative); Leukocyte Esterase Urine Negative (Negative); Nitrate Urine Negative (Negative); Protein Urine Neg (Negative); Urine Appearance Clear (CLEAR); Urine Color Yellow (Yellow); Urobilinogen Urine Neg (Negative); pH Urine 7 (5-7)
[2022-05-01 00:44] LABS: Albumin Level 4.2 g/dL (3.5-5.2); Alkaline Phosphatase 43 U/L (40-130); Blood Urea Nitrogen 7 mg/dL (6-20); Calcium 8.9 mg/dL (8.5-10.5); Carbon Dioxide 15 mmol/L (22-29); Chloride 101 mmol/L (98-107); Globulin 2.9 g/dL (1.3-4.6); Glomerular Filtration Rate 158.2 mL/min (90-130); Glucose 97 mg/dL (65-115); Osmolality Calculated 276 mOsm/kg (285-295); Sodium 134 mmol/L (136-145); Thyroid Stimulating Hormone 3.87 uIU/mL (0.27-4.20); Total Bilirubin 0.2 mg/dL (0.15-1.2); Total Protein 7.1 g/dL (6.6-8.7)
[2022-05-01 01:02] LABS: Acetaminophen < 5.0 ug/mL (10-30); Alcohol Level < 10 mg/dL (0-10); Salicylate < 0.3 mg/dL (3-10)
[2022-05-01 01:03] LABS: Anion Gap 21.8 (5-19); Potassium 3.8 mmol/L (3.5-5.1)
--- NOTE | 2022-05-01 01:05 | W.ED.PSYCHS ---
HPI - Psych General: Chief Complaint: Psychiatric Symptoms Stated Complaint: SI Time Seen by Provider: 04/30/22 23:41 Source: patient History of Present Illness: 31-year-old male with a history of schizoaffective disorder. He was last admitted to a psychiatric facility in May. He notes an increase in auditory hallucinations today. He says the voices are telling him to kill himself. He does not have a specific plan, but is more agitated because of this, and having trouble sleeping, etc. He is here voluntarily. He has been taking his home medications as directed he denies any recent illness. No fevers, coughs, vomiting, etc. MD complaint: suicidal ideation Onset (ago): hour(s) Duration: getting worse History of same: Yes Relieving factors: none Exacerbating factors: none Context: other Associated psychiatric symptoms: depression and suicidal ideation Associated symptoms: Reports auditory hallucinations, depression and suicidal ideation; Deny visual hallucinations or homicidal ideation Treatments prior to arrival: none If self harm: admits thoughts of self harm Review of Systems Const: Denies: fever(s), chills or body aches Eyes: Denies: change in vision Card: Denies: chest pain or palpitations Resp: Denies: dyspnea, productive cough, non-productive cough or wheezing GI: Denies: abdominal pain, nausea, vomiting, diarrhea or hematochezia Skin/Breast: Denies: rash Neuro: Denies: headache(s), weakness in extremities, dizziness or confusion Psych: Reports: depression, auditory hallucinations and suicidal ideation; Denies: visual hallucinations or homicidal ideation [facility] ED PFSH: Medical History Depressive disorder Hallucination Psychiatric care Schizoaffective disorder, depressive type Family History Other Diabetes Hypertension Schizoaffective disorder, depressive type Social History (Updated 12/02/21 @ 10:06 by Jessica Parsons RN) Smoking and tobacco status: current every day smoker e-cigarettes E-Cigarette Details: with nicotine E-cig/vape details: uses a 5000 puff disposable vape device Quit status (tobacco): not considering quitting Second hand smoke exposure: Yes Smoking risk assessment/counseling performed?: No Alcohol intake: never Adopted: No Caregiver/support person: Yes Lives independently: No (Staying at [facility]) Household members: other Details: Multiple other residents at the facility. Housing: Assisted Living Facility Marital status: Single Number of children: 0 Number of grandchildren: 0 Highest education level completed: High School Graduate service: No Current occupational status: disabled Current occupational exposures/hazards: No Pets and animals: Yes Pets & animals: cat(s) History of recent travel: No (Just moved here from [place] in March 2021) Leisure activites: exercise, music, games and other Leisure activities details: watch TV Sexually active: Yes How many partners: 1 Are you practicing safe sex: No Current gender identity: Male Paola/Mormonism: Confucianism Special paola needs: No Agree to transfusion: Yes Financial difficulty paying for basics: Not Very Hard Physical Exam Const: COMMON NORMALS: no acute distress GENERAL APPEARANCE: cooperative; not ill appearing and not frail appearing HENMT: COMMON NORMALS: normocephalic, atraumatic and Normal external nose present HEAD & SCALP: normocephalic and atraumatic FACE & SINUS: normal facial exam and face symmetric NOSE: Normal external nose present Eye: COMMON NORMALS: Equal, round and reactive pupils present and EOMs intact bilaterally PUPIL: Yes Equal, round and reactive pupils present Neck/C-Spine: GENERAL: Yes trachea midline Chest: CHEST: Yes Symmetrical chest wall rise Resp: COMMON NORMALS: normal respiratory effort, No retractions, No use of accessory muscles and clear to auscultation bilaterally AUSCULTATION: clear to auscultation bilaterally Cardio: COMMON NORMALS: regular rate and regular rhythm RATE: regular rate RHYTHM: regular rhythm GI: COMMON NORMALS: Normal to inspection, nondistended, normoactive bowel sounds present Extremity: COMMON NORMALS: no pedal edema Neuro: TRISHA COMA SCALE: document GCS findings Trisha coma scale eye opening: Spontaneous [place] coma scale verbal response: Orientated [place] coma scale motor response: Obey commands [place] coma scale total score: 15 SENSORY EXAM: Yes extremities (intact) Psych: COMMON NORMALS: speech normal SPEECH: Yes normal speech Skin: COMMON NORMALS: no rashes or lesions noted GENERAL SKIN EXAM: no rashes or lesions noted Course Vital Signs: Vital signs: Vital Signs Temperature 98.7 F 05/01/22 05:00 Pulse Rate 102 H 05/01/22 05:00 Respiratory Rate 17 05/01/22 05:00 Blood Pressure 121/68 05/01/22 05:00 Pulse Oximetry 97 05/01/22 05:00 Oxygen Delivery Me thod 05/01/22 05:00 MDM - Psych Medical Decision Making Patient has been calm and cooperative here. His vitals are good. CBC is normal. BMP shows a mild decrease in bicarbonate level with a normal sugar. Urine drug screen is positive for marijuana only. Alcohol is nondetectable. TSH is normal. He is willing to be admitted. I do not believe we have any beds available at our facility. We will attempt to find a bed for him at a different facility. He is medically stable. Spoke with Dr. Johnson at [facility], who as agreed to accept the patient. We are awaiting transport. Lab Data 04/30/22 23:55 04/30/22 23:55 Laboratory Results WBC 5.6 10^3/uL (4.0-10.0) 04/30/22 23:55 RBC 4.47 10^6/uL (4.1-5.3) 04/30/22 23:55 Hgb 14.3 g/dL (11.7-16.6) 04/30/22 23: Hct 40.5 % (42.0-52.0) L 04/30/22: MCV 90.6 fl (80-94) 04/30/22 23: MCH 32.0 pg (28.0-34.0) 04/30/22 23: MCHC 35.3 g/dL (30.0-36.0) 04/30/22: RDW 12.4 % (12.1-15.1) 04/30/22 23: Plt Count 208 10^3/cmm (130-400) 04/30/22 23: MPV 10.2 fL (7.4-10.4) 04/30/22 23: Neut % (Auto) 49.0 % 04/30/22 23:55 Lymph % (Auto) 40.2 % 04/30/22 23:55 Sawyer % (Auto) 8.9 % 04/30/22: Eos % (Auto) 1.3 % 04/30/22 23:55 Baso % (Auto) 0.4 % 04/30/22 23:55 Neut # (Auto) 2.75 10^3/uL (1.8-7.7) 04/30/22 23:55 Lymph # (Auto) 2.3 10^3/uL (0.8-4.8) 04/30/22 23:55 Sawyer # (Auto) 0.5 10^3/uL (0.2-0.9) 04/30/22 23:55 Eos # (Auto) 0.1 10^3/uL (0.0-0.8) 04/30/22 23:55 Baso # (Auto) 0.0 10^3/uL (0.0-0.1) 04/30/22 23:55 Nucleated RBC % (auto) 0 % 04/30/22 23: Nucleated RBCs # 0.0 /100WBC 04/30/22 23:55 Sodium 134 mmol/L (136-145) L 04/30/22 23:55 Potassium 3.8 mmol/L (3.5-5.1) 04/30/22 23:55 Chloride 101 mmol/L (98-107) 04/30/22 23:55 Carbon Dioxide 15 mmol/L (22-29) L 04/30/22 23:55 Anion Gap 21.8 (5-19) H 04/30/22 23:55 BUN 7 mg/dL (6-20) 04/30/22 23:55 Creatinine 0.6 mg/dL (0.7-1.2) L 04/30/22 23:55 GFR Calculation 158.2 mL/min (90-130) H 04/30/22 23:55 Glucose 97 mg/dL (65-115) 04/30/22 23:55 Calculated Osmolality 276 mOsm/kg (285-295) L 04/30/22 23:55 Calcium 8.9 mg/dL (8.5-10.5) 04/30/22 23:55 Total Bilirubin 0.2 mg/dL (0.15-1.2) 04/30/22 23:55 AST 23 U/L (0-40) 04/30/22 23:55 ALT 49 U/L (0-41) H 04/30/22 23:55 Alkaline Phosphatase 43 U/L (40-130) 04/30/22 23:55 Total Protein 7.1 g/dL (6.6-8.7) 04/30/22 23:55 Albumin 4.2 g/dL (3.5-5.2) 04/30/22 23:55 Globulin 2.9 g/dL (1.3-4.6) 04/30/22 23:55 TSH 3.87 uIU/mL (0.27-4.20) 04/30/22 23:55 Urine Color Yellow (Yellow) 05/01/22 00:06 Urine Appearance Clear (CLEAR) 05/01/22 00:06 Urine pH 7 (5-7) 05/01/22 00:06 Ur Specific [place] 1.010 (1.005-1.030) 05/01/22 00:06 Urine Protein Neg (Negative) 05/01/22 00:06 Urine Glucose (UA) Norm (Normal) 05/01/22 00:06 Urine Ketones Negative (Negative) 05/01/22 00:06 Urine Blood Neg (Negative) 05/01/22 00:06 Urine Nitrate Negative (Negative) 05/01/22 00:06 Urine Bilirubin Neg (Negative) 05/01/22 00:06 Urine Urobilinogen Neg mg/dL (Negative) 05/01/22 00:06 Ur Leukocyte Esterase Negative (Negative) 05/01/22 00:06 Salicylates < 0.3 mg/dL (3-10) L 04/30/22 23:55 Urine Opiates Screen Negative ng/mL (Negative) 05/01/22 00:06 Acetaminophen < 5.0 ug/mL (10-30) L 04/30/22 23:55 Ur Barbiturates Screen Negative ng/mL (Negative) 05/01/22 00:06 Ur Phencyclidine Scrn Negative ng/mL (Negative) 05/01/22 00:06 Ur Amphetamines Screen Negative ng/mL (Negative) 05/01/22 00:06 U Benzodiazepines Scrn Negative ng/mL (Negative) 05/01/22 00:06 Urine Cocaine Screen Negative ng/mL (Negative) 05/01/22 00:06 U Marijuana (THC) Screen Positive ng/mL (Negative) H 05/01/22 00:06 Ethyl Alcohol < 10 mg/dL (0-10) 04/30/22 23:55 SARS-CoV-2 Ag (Rapid) negative (Negative) 05/01/22 00:14 Discharge Plan Discharge Patient Disposition: Xfer Psychiatric Hosp Clinical Impression: Hallucination, Suicidal ideation Condition: Stable Referrals: Sp Flowers MD [Primary Care Provider] - Coding Level of Care Code ED Clinical Safety Manager for Chg Fwd Exam Comprehensive
[2022-05-01 01:37] LABS: Alanine Aminotransferase 49 U/L (0-41); Aspartate Amino Transferase 23 U/L (0-40)
[2022-05-01 05:00] VITALS: BP 121/68; PULSE 102; RESP 17; TEMP 37.1; O2SAT 97
--- NOTE | 2022-05-01 05:19 | PC.NURSE ---
Transfer report Called [facility] with report prior to transfer to psych unit. Spoke with Ivania Hassan RN @ [phone].
== END 2022-05-01 07:27 ==
PROVIDERS: Emergency Provider Emergency Medicine; PCP Family Medicine
DX: R45.851 Suicidal ideations (principal); R44.0 Auditory hallucinations; F17.290 Nicotine dependence, other tobacco product, uncomplicated; Z20.822 Contact with and (suspected) exposure to COVID-19
CPT/HCPCS: 80053; 80306; 80307; 81003; 84443; 85025; 87426; 93005; 99284

== ENCOUNTER 2022-05-13 21:16 | Emergency (ER) | payer MEDICARE, MEDICAID, SELFPAY ==
[2022-05-12 10:03] VITALS: BP 135/91; BMI 33.9
[2022-05-13 21:24] VITALS: BP 133/76; PULSE 106; RESP 16; TEMP 36.4; O2SAT 95
--- NOTE | 2022-05-13 23:18 | W.ED.ALLEREA ---
HPI - Allergic Reaction General: Chief complaint: Allergic Reaction Stated complaint: medication reaction, jaw locking up Time Seen by Provider: 05/13/22 23:13 History of Present Illness: HPI narrative: 31-year-old male patient comes in today with complaints of jaw tightness and tongue abnormality due to being started on Geodon. Patient has had a history of EPS symptoms secondary to Haldol and Latuda. Patient appears nontoxic. Patient seems to be moving his jaw and mouth without difficulty. No obvious tremors or shakes are noted at this time. Review of Systems ENMT: Reports: other (Jaw tightness) PFS ED PFSH: Medical History Depressive disorder Hallucination Psychiatric care Schizoaffective disorder, depressive type Family History Other Diabetes Hypertension Schizoaffective disorder, depressive type Social History (Updated 12/02/21 @ 10:06 by Jessica Parsons RN) Smoking and tobacco status: current every day smoker e-cigarettes E-Cigarette Details: with nicotine E-cig/vape details: uses a 5000 puff disposable vape device Quit status (tobacco): not considering quitting Second hand smoke exposure: Yes Smoking risk assessment/counseling performed?: No Alcohol intake: never Adopted: No Caregiver/support person: Yes Lives independently: No (Staying at [facility]) Household members: other Details: Multiple other residents at the facility. Housing: Assisted Living Facility Marital status: Single Number of children: 0 Number of grandchildren: 0 Highest education level completed: High School Graduate service: No Current occupational status: disabled Current occupational exposures/hazards: No Pets and animals: Yes Pets & animals: cat(s) History of recent travel: No (Just moved here from [place] in March 2021) Leisure activites: exercise, music, games and other Leisure activities details: watch TV Sexually active: Yes How many partners: 1 Are you practicing safe sex: No Current gender identity: Male Paola/Mormon: Nondenominational Special paola needs: No Agree to transfusion: Yes Financial difficulty paying for basics: Not Very Hard Physical Exam Const: COMMON NORMALS: alert HENMT: COMMON NORMALS: normocephalic HEAD & SCALP: normocephalic MOUTH: Normal oral and palatal mucosa present Neck/C-Spine: COMMON NORMALS: full ROM Resp: COMMON NORMALS: normal respiratory effort and clear to auscultation bilaterally AUSCULTATION: clear to auscultation bilaterally Cardio: COMMON NORMALS: regular rate and regular rhythm RATE: regular rate RHYTHM: regular rhythm GI: COMMON NORMALS: non-tender Extremity: COMMON NORMALS: no pedal edema Neuro: SENSORIUM/ORIENTATION: Yes alert Psych: MOOD & AFFECT: Yes Flat affect present OTHER: Denies hallucinations. Skin: COMMON NORMALS: turgor normal GENERAL SKIN EXAM: turgor normal Course Vital Signs: Vital signs: Vital Signs Temperature 97.5 F L 05/13/22 21:24 Pulse Rate 76 05/13/22 23:58 Respiratory Rate 18 05/13/22 23:58 Blood Pressure 133/82 05/13/22 23:58 Pulse Oximetry 99 05/13/22 23:58 Oxygen Delivery Me thod 05/13/22 21:24 MDM - Allergic Reaction Medical Decision Making 31-year-old male comes in [facility] with complaints of feeling of his jaw walking and abnormal tongue discomfort. Patient thinks he might be having a reaction to Geodon. No tremors are noted. Vital signs are normal. Differential diagnosis includes but not limited to malingering, anxiety, EPS, dystonia. Patient was given 1 mg of Cogentin IM. We will continue patient on Cogentin 1 mg twice a day for dystonia type symptoms. Patient was agreeable plan and is to follow-up with psychiatrist on Monday. Discharge Plan Discharge Patient Disposition: Home Clinical Impression: Dystonic drug reaction Condition: Stable Prescriptions: New benztropine 1 mg tablet 1 mg PO BID Qty: 28 0RF No Action acetaminophen [Tylenol Extra Strength] 500 mg tablet 1,000 mg PO Q6H PRN (Reason: Pain) celecoxib [Celebrex] 200 mg capsule 200 mg PO BID PRN (Reason: Pain) cetirizine 10 mg tablet 10 mg PO DAILY PRN (Reason: Allergy Symptoms) bupropion HCl 300 mg tablet extended release 24 hr 300 mg PO .q am Qty: 30 2RF Rx Instructions: Take one tablet daily every morning hydroxyzine pamoate 25 mg capsule 25 mg PO BID PRN (Reason: Anxiety) Qty: 60 2RF Rx Instructions: take one capsule by mouth twice daily, if needed for anxiety melatonin 3 mg tablet See Rx Instructions PO .HS PRN (Reason: sleep) Qty: 60 2RF Rx Instructions: Take 1 or 2 tablets daily at 9 PM, if needed for sleep quetiapine [Seroquel] 100 mg tablet 100 mg PO DAILY PRN (Reason: Agitation/psychosis) Qty: 30 2RF Rx Instructions: Take one tablet daily, if needed for agiation/psychosis quetiapine 300 mg tablet 300 mg PO .daily at 9 PM Qty: 30 2RF Rx Instructions: Take 1 tablet daily at 9 PM nicotine (polacrilex) 2 mg gum 2 mg buccal Q4H PRN (Reason: nicotine cravings) divalproex 500 mg tablet extended release 24 hr 1,000 mg PO DAILY ziprasidone HCl [Geodon] 40 mg capsule 40 mg PO BID Rx Instructions: give with food (meal/snack) metoprolol succinate 25 mg tablet extended release 24 hr 25 mg PO DAILY levothyroxine [Levoxyl] 100 mcg Tablet 100 mcg PO DAILY Qty: 0 0RF lisinopril 10 mg Tablet 10 mg PO DAILY Qty: 0 0RF omeprazole 20 mg Capsule,Delayed Release(Dr/Ec) 20 mg PO DAILY Discharge Orders: Discharge ED (Routine); Ordered 05/13/22 Ordered By: Sherman Jones Referrals: Sp Flowers MD [Primary Care Provider] - Discharge Diet: Usual diet Discharge Activity: Increase activity as tolerated Patient Instructions: Extrapyramidal Symptoms (ED) Activity Restrictions/Additional Instructions: Take Cogentin 1 mg one tablet in the morning and one tablet in the evening for the next 2 weeks to prevent recurrence of symptoms. Continue medications as prescribed. Follow-up with primary care or psychiatrist for changes in medication. Return to ER for worsening symptoms or new concerns. Coding Level of Care Code ED Process Coach for Renayg Fwd Exam Comprehensive
[2022-05-13] MEDS: benztropine 1 mg/mL SDV 2 mL IM (23:36)
[2022-05-13 23:58] VITALS: BP 133/82; PULSE 76; RESP 18; O2SAT 99
== END 2022-05-14 | disposition home or self-care (01) ==
PROVIDERS: Emergency Provider Nurse Practitioner Family; PCP Family Medicine
DX: G24.09 Other drug induced dystonia (principal); T43.595A Adverse effect of other antipsychotics and neuroleptics, initial encounter; F17.290 Nicotine dependence, other tobacco product, uncomplicated
CPT/HCPCS: 96372; 99284; J0515

== ENCOUNTER 2022-11-17 07:11 | Inpatient (IN) | payer MEDICARE, MEDICAID, SELFPAY ==
[2022-08-29 07:52] VITALS: BP 135/91; BMI 33.9
--- NOTE | 2022-11-17 07:15 | ED.C_ITS ---
Documented by User: ALLY Esparza 11/17/22 08:58 HPI - Psych General: Chief Complaint: Psychiatric Symptoms Stated Complaint: SI Time Seen by Provider: 11/17/22 07:11 Source: patient Mode of arrival: ambulatory Limitations: no limitations History of Present Illness: Patient is a 32-year-old male with a history of schizoaffective disorder here for complaints of auditory hallucinations stating that the voices are telling him to harm himself. He states they are not telling him any specific ways to harm himself. He does state he feels like he might act on the voices. He reports a previous suicide attempt years ago. He states he does have a psychiatrist at [facility]. Patient is requesting hospitalization. He denies homicidal ideations. No visual hallucinations. Denies drug or alcohol use. Patient is a resident at [facility]. MD complaint: suicidal ideation and other (auditory hallucinations) Onset (ago): day(s) Duration: constant History of same: Yes Relieving factors: none Exacerbating factors: none Associated psychiatric symptoms: depression, suicidal ideation and auditory hallucinations Associated symptoms: Reports auditory hallucinations, depression and suicidal ideation; Deny visual hallucinations or homicidal ideation Treatments prior to arrival: none If self harm: admits thoughts of self harm Review of Systems Const: Denies: fever(s) or chills Card: Denies: chest pain, palpitations, lightheadedness or syncope Resp: Denies: dyspnea GI: Denies: abdominal pain, nausea, vomiting or diarrhea Skin/Breast: Denies: rash Neuro: Denies: headache(s) Psych: Reports: depression, auditory hallucinations and suicidal ideation; Denies: anxiety, irritability, paranoia, memory loss, visual hallucinations or homicidal ideation [facility] ED PFSH: Medical History Depressive disorder Hallucination Psychiatric care Schizoaffective disorder, depressive type Family History Other Diabetes Hypertension Schizoaffective disorder, depressive type Social History Smoking and tobacco status: current every day smoker e-cigarettes E-Cigarette Details: with nicotine E-cig/vape details: uses a 5000 puff disposable vape device Quit status (tobacco): not considering quitting Second hand smoke exposure: Yes Smoking risk assessment/counseling performed?: No Alcohol intake: never Substance/Drug Use: never Adopted: No Caregiver/support person: Yes Lives independently: No (Staying at [facility]) Household members: other Details: Multiple other residents at the facility. Housing: Assisted Living Facility Marital status: Single Number of children: 0 Number of grandchildren: 0 Highest education level completed: High School Graduate service: No Current occupational status: disabled Current occupational exposures/hazards: No Pets and animals: Yes Pets & animals: cat(s) Leisure activites: exercise, music, games and other Leisure activities details: watch TV Sexually active: Yes How many partners: 1 Are you practicing safe sex: No Do you think of yourself as: Straight/Heterosexual Current gender identity: Male Paola/Yazdanism: Episcopalian Special paola needs: No Agree to transfusion: Yes Financial difficulty paying for basics: Not Very Hard Physical Exam Const: COMMON NORMALS: no acute distress, patient oriented x3, alert and well nourished GENERAL APPEARANCE: cooperative and well kempt Resp: COMMON NORMALS: normal respiratory effort and clear to auscultation bilaterally AUSCULTATION: clear to auscultation bilaterally Cardio: COMMON NORMALS: regular rate and regular rhythm RATE: regular rate RHYTHM: regular rhythm Neuro: COMMON NORMALS: patient oriented x3, CN's II-XII intact bilaterally, moves all extremities, no focal motor deficits, no sensory deficits noted and gait normal SENSORIUM/ORIENTATION: Yes alert Psych: COMMON NORMALS: mental status grossly normal, Normal thought process present, cooperative, normal affect, speech normal, activity/motor behavior normal and denies homicidal ideation APPEARANCE: Yes grossly normal and Yes well kempt ATTITUDE: Yes calm ACTIVITY/MOTOR BEHAVIOR: Yes appropriate eye contact and No psychomotor agitation SPEECH: Yes normal speech MOOD & AFFECT: Yes euthymic mood THOUGHT PROCESS: Normal thought process present ATTENTION/CONCENTRATION: Yes attention grossly intact and Yes concentration grossly intact MEMORY/COGNITION: Yes memory grossly intact and Yes cognition grossly intact INSIGHT: Fair insight present (Psych) JUDGEMENT: Fair judgement present (Psych) Course Consultations: Consultation #1: Dr. Stevens-accepts admit to NPU Vital Signs: Vital signs: Vital Signs Temperature 98.4 F 11/17/22 10:34 Pulse Rate 90 11/17/22 10:34 Respiratory Rate 18 11/17/22 10:34 Blood Pressure 119/76 11/17/22 10:34 Pulse Oximetry 95 11/17/22 10:34 Oxygen Delivery Me thod Room Air 11/17/22 10:58 MDM - Psych Medical Decision Making Patient will be admitted to NPU to Dr. Stevens for treatment/evaluation of auditory hallucinations/suicidal ideations. Lab Data 11/17/22 07:35 11/17/22 07:35 Laboratory Results WBC 7.1 10^3/uL (4.0-10.0) 11/17/22 07:35 RBC 4.89 10^6/uL (4.1-5.3) 11/17/22 07:35 Hgb 15.0 g/dL (11.7-16.6) 11/17/22 07:35 Hct 44.5 % (42.0-52.0) 11/17/22 07:35 MCV 91.0 fl (80-94) 11/17/22 07:35 MCH 30.7 pg (28.0-34.0) 11/17/22 07:35 MCHC 33.7 g/dL (30.0-36.0) 11/17/22 07:35 RDW 12.7 % (12.1-15.1) 11/17/22 07:35 Plt Count 217 10^3/cmm (130-400) 11/17/22 07:35 MPV 10.3 fL (7.4-10.4) 11/17/22 07:35 Neut % (Auto) 51.2 % 11/17/22 07:35 Lymph % (Auto) 40.8 % 11/17/22 07:35 [place] % (Auto) 5.6 % 11/17/22 07:35 Eos % (Auto) 1.7 % 11/17/22 07:35 Baso % (Auto) 0.3 % 11/17/22 07:35 Neut # (Auto) 3.65 10^3/uL (1.8-7.7) 11/17/22 07:35 Lymph # (Auto) 2.9 10^3/uL (0.8-4.8) 11/17/22 07:35 [place] # (Auto) 0.4 10^3/uL (0.2-0.9) 11/17/22 07:35 Eos # (Auto) 0.1 10^3/uL (0.0-0.8) 11/17/22 07:35 Baso # (Auto) 0.0 10^3/uL (0.0-0.1) 11/17/22 07:35 Nucleated RBC % (auto) 0 % 11/17/22 07:35 Nucleated RBCs # 0.0 /100WBC 11/17/22 07:35 Sodium 136 mmol/L (136-145) 11/17/22 07:35 Potassium 4.2 mmol/L (3.5-5.1) 11/17/22 07:35 Chloride 100 mmol/L (98-107) 11/17/22 07:35 Carbon Dioxide 23 mmol/L (22-29) 11/17/22 07:35 Anion Gap 17.2 (5-19) 11/17/22 07:35 BUN 11 mg/dL (6-20) 11/17/22 07:35 Creatinine 0.9 mg/dL (0.7-1.2) 11/17/22 07:35 GFR Calculation 98.4 mL/min (90-130) 11/17/22 07:35 Glucose 115 mg/dL (65-115) 11/17/22 07:35 Calculated Osmolality 282 mOsm/kg (285-295) L 11/17/22 07:35 Calcium 9.8 mg/dL (8.5-10.5) 11/17/22 07:35 Total Bilirubin 0.4 mg/dL (0.15-1.2) 11/17/22 07:35 AST 30 U/L (0-40) 11/17/22 07:35 ALT 75 U/L (0-41) H 11/17/22 07:35 Alkaline Phosphatase 42 U/L (40-130) 11/17/22 07:35 Total Protein 7.9 g/dL (6.6-8.7) 11/17/22 07:35 Albumin 4.8 g/dL (3.5-5.2) 11/17/22 07:35 Globulin 3.1 g/dL (1.3-4.6) 11/17/22 07:35 TSH 5.62 uIU/mL (0.27-4.20) H 11/17/22 07:35 Salicylates < 0.3 mg/dL (3-10) L 11/17/22 07:35 Urine Opiates Screen Negative ng/mL (Negative) 11/17/22 07:30 Acetaminophen < 5.0 ug/mL (10-30) L 11/17/22 07:35 Ur Barbiturates Screen Negative ng/mL (Negative) 11/17/22 07:30 Valproic Acid 35.1 ug/mL (50-100) L 11/17/22 07:35 Ur Phencyclidine Scrn Negative ng/mL (Negative) 11/17/22 07:30 Ur Amphetamines Screen Negative ng/mL (Negative) 11/17/22 07:30 U Benzodiazepines Scrn Negative ng/mL (Negative) 11/17/22 07:30 Urine Cocaine Screen Negative ng/mL (Negative) 11/17/22 07:30 U Marijuana (THC) Screen Positive ng/mL (Negative) H 11/17/22 07:30 Ethyl Alcohol < 10 mg/dL (0-10) 11/17/22 07:35 Discharge Plan Discharge Patient Disposition: Admitted As Inpatient Admit Provider: Troy Stevens Clinical Impression: Suicidal ideation, Auditory hallucinations Condition: Stable Coding Level of Care Code ED Historic Preservationist for Chg Fwd Documented by User: Ashvin Ledbetter DO 11/17/22 12:03 HPI - Psych General: Chief Complaint: Psychiatric Symptoms Stated Complaint: SI Time Seen by Provider: 11/17/22 07:11 PFSH ED PFSH: Medical History Depressive disorder Hallucination Psychiatric care Schizoaffective disorder, depressive type Family History Other Diabetes Hypertension Schizoaffective disorder, depressive type Social History Smoking and tobacco status: current every day smoker e-cigarettes E-Cigarette Details: with nicotine E-cig/vape details: uses a 5000 puff disposable vape dev ice Quit status (tobacco): not considering quitting Second hand smoke exposure: Yes Smoking risk assessment/counseling performed?: No Alcohol intake: never Substance/Drug Use: never Adopted: No Caregiver/support person: Yes Lives independently: No (Staying at [facility]) Household members: other Details: Multiple other residents at the facility. Housing: Assisted Living Facility Marital status: Single Number of children: 0 Number of grandchildren: 0 Highest education level completed: High School Graduate service: No Current occupational status: disabled Current occupational exposures/hazards: No Pets and animals: Yes Pets & animals: cat(s) Leisure activites: exercise, music, games and other Leisure activities details: watch TV Sexually active: Yes How many partners: 1 Are you practicing safe sex: No Do you think of yourself as: Straight/Heterosexual Current gender identity: Male Paola/Yazdanism: Episcopalian Special paola needs: No Agree to transfusion: Yes Financial difficulty paying for basics: Not Very Hard Course Vital Signs: Vital signs: Vital Signs Temperature 98.4 F 11/17/22 10:34 Pulse Rate 90 11/17/22 10:34 Respiratory Rate 18 11/17/22 10:34 Blood Pressure 119/76 11/17/22 10:34 Pulse Oximetry 95 11/17/22 10:34 Oxygen Delivery Me thod Room Air 11/17/22 10:58 MDM - Psych Medical Decision Making Patient will be admitted to NPU to Dr. Stevens for treatment/evaluation of auditory hallucinations/suicidal ideations. Chart reviewed and patient discussed with midlevel. Agree with assessment and plan. Orders written Lab Data 11/17/22 07:35 11/17/22 07:35 Laboratory Results WBC 7.1 10^3/uL (4.0-10.0) 11/17/22 07:35 RBC 4.89 10^6/uL (4.1-5.3) 11/17/22 07:35 Hgb 15.0 g/dL (11.7-16.6) 11/17/22 07:35 Hct 44.5 % (42.0-52.0) 11/17/22 07:35 MCV 91.0 fl (80-94) 11/17/22 07:35 MCH 30.7 pg (28.0-34.0) 11/17/22 07:35 MCHC 33.7 g/dL (30.0-36.0) 11/17/22 07:35 RDW 12.7 % (12.1-15.1) 11/17/22 07:35 Plt Count 217 10^3/cmm (130-400) 11/17/22 07:35 MPV 10.3 fL (7.4-10.4) 11/17/22 07:35 Neut % (Auto) 51.2 % 11/17/22 07:35 Lymph % (Auto) 40.8 % 11/17/22 07:35 [place] % (Auto) 5.6 % 11/17/22 07:35 Eos % (Auto) 1.7 % 11/17/22 07:35 Baso % (Auto) 0.3 % 11/17/22 07:35 Neut # (Auto) 3.65 10^3/uL (1.8-7.7) 11/17/22 07:35 Lymph # (Auto) 2.9 10^3/uL (0.8-4.8) 11/17/22 07:35 [place] # (Auto) 0.4 10^3/uL (0.2-0.9) 11/17/22 07:35 Eos # (Auto) 0.1 10^3/uL (0.0-0.8) 11/17/22 07:35 Baso # (Auto) 0.0 10^3/uL (0.0-0.1) 11/17/22 07:35 Nucleated RBC % (auto) 0 % 11/17/22 07:35 Nucleated RBCs # 0.0 /100WBC 11/17/22 07:35 Sodium 136 mmol/L (136-145) 11/17/22 07:35 Potassium 4.2 mmol/L (3.5-5.1) 11/17/22 07:35 Chloride 100 mmol/L (98-107) 11/17/22 07:35 Carbon Dioxide 23 mmol/L (22-29) 11/17/22 07:35 Anion Gap 17.2 (5-19) 11/17/22 07:35 BUN 11 mg/dL (6-20) 11/17/22 07:35 Creatinine 0.9 mg/dL (0.7-1.2) 11/17/22 07:35 GFR Calculation 98.4 mL/min (90-130) 11/17/22 07:35 Glucose 115 mg/dL (65-115) 11/17/22 07:35 Calculated Osmolality 282 mOsm/kg (285-295) L 11/17/22 07:35 Calcium 9.8 mg/dL (8.5-10.5) 11/17/22 07:35 Total Bilirubin 0.4 mg/dL (0.15-1.2) 11/17/22 07:35 AST 30 U/L (0-40) 11/17/22 07:35 ALT 75 U/L (0-41) H 11/17/22 07:35 Alkaline Phosphatase 42 U/L (40-130) 11/17/22 07:35 Total Protein 7.9 g/dL (6.6-8.7) 11/17/22 07:35 Albumin 4.8 g/dL (3.5-5.2) 11/17/22 07:35 Globulin 3.1 g/dL (1.3-4.6) 11/17/22 07:35 TSH 5.62 uIU/mL (0.27-4.20) H 11/17/22 07:35 Salicylates < 0.3 mg/dL (3-10) L 11/17/22 07:35 Urine Opiates Screen Negative ng/mL (Negative) 11/17/22 07:30 Acetaminophen < 5.0 ug/mL (10-30) L 11/17/22 07:35 Ur Barbiturates Screen Negative ng/mL (Negative) 11/17/22 07:30 Valproic Acid 35.1 ug/mL (50-100) L 11/17/22 07:35 Ur Phencyclidine Scrn Negative ng/mL (Negative) 11/17/22 07:30 Ur Amphetamines Screen Negative ng/mL (Negative) 11/17/22 07:30 U Benzodiazepines Scrn Negative ng/mL (Negative) 11/17/22 07:30 Urine Cocaine Screen Negative ng/mL (Negative) 11/17/22 07:30 U Marijuana (THC) Screen Positive ng/mL (Negative) H 11/17/22 07:30 Ethyl Alcohol < 10 mg/dL (0-10) 11/17/22 07:35 Discharge Plan Discharge Patient Disposition: Admitted As Inpatient Admit Provider: Troy Stevens Clinical Impression: Suicidal ideation, Auditory hallucinations Condition: Stable Coding Level of Care Code ED Historic Preservationist for Keny Ying
[2022-11-17 07:22] VITALS: BP 135/89; PULSE 91; RESP 17; TEMP 36.8; O2SAT 96
[2022-11-17 07:49] LABS: Basophils % 0.3 %; Eosinophils # 0.1 10^3/uL (0.0-0.8); Eosinophils % 1.7 %; Hematocrit 44.5 % (42.0-52.0); Lymphocytes # 2.9 10^3/uL (0.8-4.8); Lymphocytes % 40.8 %; Mean Corpuscular HGB Conc 33.7 g/dL (30.0-36.0); Mean Corpuscular Hemoglobin 30.7 pg (28.0-34.0); Mean Platelet Volume 10.3 fL (7.4-10.4); Monocytes # 0.4 10^3/uL (0.2-0.9); Monocytes % 5.6 %; Neutrophils # 3.65 10^3/uL (1.8-7.7); Neutrophils % 51.2 %; Nucleated Red Blood Cells % 0 %; Platelet Count 217 10^3/cmm (130-400); Red Blood Count 4.89 10^6/uL (4.1-5.3); Red Cell Distribution Width 12.7 % (12.1-15.1); White Blood Count 7.1 10^3/uL (4.0-10.0)
[2022-11-17 07:52] LABS: Amphetamines Screen Urine Negative (Negative); Barbiturates Screen Urine Negative (Negative); Benzodiazepines Screen Urine Negative (Negative); Cocaine Screen Urine Negative (Negative); Opiate Screen Urine Negative (Negative); PCP Screen Urine Negative (Negative); THC Screen Urine Positive (Negative)
[2022-11-17 08:04] LABS: Valproic Acid Level 35.1 ug/mL (50-100)
[2022-11-17 08:14] LABS: Alanine Aminotransferase 75 U/L (0-41); Albumin Level 4.8 g/dL (3.5-5.2); Alkaline Phosphatase 42 U/L (40-130); Anion Gap 17.2 (5-19); Aspartate Amino Transferase 30 U/L (0-40); Blood Urea Nitrogen 11 mg/dL (6-20); Calcium 9.8 mg/dL (8.5-10.5); Carbon Dioxide 23 mmol/L (22-29); Chloride 100 mmol/L (98-107); Globulin 3.1 g/dL (1.3-4.6); Glomerular Filtration Rate 98.4 mL/min (90-130); Glucose 115 mg/dL (65-115); Osmolality Calculated 282 mOsm/kg (285-295); Potassium 4.2 mmol/L (3.5-5.1); Sodium 136 mmol/L (136-145); Thyroid Stimulating Hormone 5.62 uIU/mL (0.27-4.20); Total Bilirubin 0.4 mg/dL (0.15-1.2); Total Protein 7.9 g/dL (6.6-8.7)
[2022-11-17 08:15] LABS: Acetaminophen < 5.0 ug/mL (10-30); Alcohol Level < 10 mg/dL (0-10); Salicylate < 0.3 mg/dL (3-10)
--- NOTE | 2022-11-17 08:58 | PC.PHAR ---
medications entered are from the pts sai and radu from [facility] that the pt brought in
[2022-11-17 10:33] VITALS: BP 119/76; PULSE 90; RESP 18; TEMP 36.9; O2SAT 95
[2022-11-17 10:34] VITALS: BP 119/76; PULSE 90; RESP 18; TEMP 36.9; O2SAT 95
[2022-11-17] MEDS: ziprasidone hcl 20 mg Capsule PO (13:48)
[2022-11-17 14:00] VITALS: BP 143/88; PULSE 90; RESP 18; TEMP 36.3; O2SAT 95
[2022-11-17] MEDS: ziprasidone hcl 60 mg Capsule PO (17:29)
[2022-11-17] MEDS: pantoprazole DR 40 mg Tablet PO (17:29)
[2022-11-17] MEDS: hyDROXYzine 25 mg Capsule 50 MG PO (20:14)
[2022-11-17] MEDS: trazodone 50 mg Tablet PO (20:14)
[2022-11-17] MEDS: quetiapine 300 mg Tablet PO (20:14)
[2022-11-17] MEDS: divalproex ER 500 mg Tablet (24H) 1000 MG PO (20:14)
--- NOTE | 2022-11-17 21:03 | PC.NURSE ---
PT STATES MY VOICES ARE GETTING WORSE THE GEODON DIDN'T WORK. PT ENDORSES HEARING VOICES THAT ARE NEGATIVE IN NATURE AND TELLING HIM TO HARM SELF. PT DENIES VH. PT STATES HE IS HAVING SUICIDAL THOUGHTS WITH NO SPECIFIC PLAN AT THIS TIME. PT WAS GIVEN VISTARIL FOR ANXIETY AND HEARING VOICES. TRAZODONE 50 MG WAS GIVEN ORDERED FOR SLEEP. PT WAS CONTRACTED FOR SAFETY AND STATES HE WILL LET STAFF KNOW IF HIS THOUGHTS GET WORSE OR THE VOICES. PT CONTINUES TO SIT ON BED WITH WASH CLOTH OVER HIS FACE TO HELP CALM HIM. PT REPORTS INCONTINENCE. PT REPORTS ITS NORMAL WHEN I TAKE ALOT OF MEDICINE. AND THE GEODON MADE ME DO THAT LAST TIME. IT WILL STOP PROBABLY. PT WAS INFORMED TO NOTIFY STAFF IN INCONTINENCE PERSISTS.
[2022-11-17 22:00] VITALS: BP 134/77; PULSE 89; RESP 16; O2SAT 96
[2022-11-18] MEDS: acetaminophen 325 mg Tablet 650 MG PO ×2 (05:29→16:33)
[2022-11-18 06:00] VITALS: BP 113/85; PULSE 106; RESP 16; O2SAT 98
[2022-11-18] MEDS: buPROPion XL (24 HR) 300 mg Tablet PO (06:11)
[2022-11-18] MEDS: lisinopril 10 mg Tablet PO (06:11)
[2022-11-18] MEDS: metoprolol succinate ER (24 HR) 25 mg Tablet PO (06:11)
[2022-11-18] MEDS: ziprasidone hcl 60 mg Capsule PO ×2 (06:12→17:36)
--- NOTE | 2022-11-18 06:44 | W.PM.NPUH&PS ---
Providers/Chief Complaint Admitting Physician: Troy Stevens MD Primary Care Provider: Sp Flowers MD Chief Complaint: SI HPI NPU History of Present Illness Real Black is a 32 year old male who presented to the ED with the following report: Chief Complaint: Psychiatric Symptoms Stated Complaint: SI Time Seen by Provider: 11/17/22 07:11 Source: patient Mode of arrival: ambulatory Limitations: no limitations History of Present Illness: Patient is a 32-year-old male with a history of schizoaffective disorder here for complaints of auditory hallucinations stating that the voices are telling him to harm himself. He states they are not telling him any specific ways to harm himself. He does state he feels like he might act on the voices. He reports a previous suicide attempt years ago. He states he does have a psychiatrist at [facility]. Patient is requesting hospitalization. He denies homicidal ideations. No visual hallucinations. Denies drug or alcohol use. Patient is a resident at [facility]. complaint: suicidal ideation and other (auditory hallucinations) Onset (ago): day(s) Duration: constant History of same: Yes Relieving factors: none Exacerbating factors: none Associated psychiatric symptoms: depression, suicidal ideation and auditory hallucinations Associated symptoms: Reports auditory hallucinations, depression and suicidal ideation; Deny visual hallucinations or homicidal ideation Treatments prior to arrival: none If self harm: admits thoughts of self harm He was admitted to the neuropsychiatric unit for definitive treatment of those issues.? He presents today reporting he has been doing well in general in the past 13 months with only intermittent AH occasionally with good medication adherence overall. He reports that he had been doing well until about 3 weeks ago when for some reason he cannot explain he began being more drawn to playing his video games at night and staying up. As he was having 3 and 4-day stretches where he was having little to no sleep his hallucinations returned and they started getting worse eventually leading to him having command auditory hallucinations to harm himself but not specifically to kill himself per se. He reports that as a got out of control he knew he needed to come in and may be get his sleep back under control and consider changes in his medication. We discussed the risks, benefits and alternatives of him starting Abilify as we had attempted this in the past and he understood and agreed to proceed as is documented in this note. This is in part due to the fact that increases in his Geodon have proved challenging such that he has been somewhat stuck at this 40 mg p.o. twice daily dosing. Also he had been on several medications back then and polypharmacy was a concern but he has been able to decrease some of those medications. We reviewed his records and identified his 10/03/2022 outpatient evaluation from [facility] as being a comprehensive exploration of his history and excerpt is included below. Per his 10/03/2022 [facility] inpatient psychiatric discharge summary: Discharge Diagnosis (1) Suicidal ideation: Status: Acute (2) Auditory hallucinations: Status: Acute (3) Schizoaffective disorder, depressive type: Status: Chronic Reason for Visit Reason for Visit: SI Brief History: Real Black is a 31 year old male admitted to the neuropsychiatry unit for the following report. Mr. Black is a 31-year-old male with history of schizoaffective disorder presenting to the emergency department due to suicidal ideation and hallucinations. He reports history of similar however had been doing well. Symptoms started yesterday morning without known specific provoking factor. He reports compliance with medication regimen and denies other associated significant changes in related depressive symptoms. Intensity of hallucinations have been worsening. They tell him to hurt himself. He has had increased thoughts of hurting himself because of these voices. Otherwise denies medical complaints. No other specific changes in health, exacerbating, or alleviating factors identified. He was admitted to the neuropsychiatry unit for definitive treatment of these issues. He is well known to this unit with multiple admissions. The last admission was in June and at that time we changed him from Geodon to Invega and increased his Wellbutrin to 300 mg daily. He feels like those changes have been working well. He denies anything that could precipitate a worsening of his auditory hallucinations. He says he occasionally has flareups of his hallucinations but this is much worse than normal. He has been generally doing well since he left the hospital in June. He reported to his therapist and psychiatric nurse practitioner that he had been doing well in recent appointments. He denies any drug use. He denies any stress at [place] he lives. He denies any family stress. He says that he has been compliant with medications. His mood has been fairly good. He requested that his Invega be increased. I agreed to do that for a couple of days and then reevaluate. Hospital Course He slowly acclimated to the individual, group and milieu therapies provided. He was continued on his medications except for Invega was gradually increased to 9 mg in the morning and 6 mg at bedtime. He had urinary incontinence on 6 mg twice a day and Cogentin was added. He had a similar problem with Geodon. We talked about trying a different antipsychotic but he felt that Invega was good for him and wanted to try that with the Cogentin and increase the dose. He tolerated these doses and showed steady improvement during his stay. He was able to contract for safety outside hospital prior to discharge. During the hospitalization, patient had routine laboratory studies which were within normal limits except for few outliers. Additionally there was a general medical evaluation which was also within normal limits and revealed no new acute processes. Discharge Summary: At the time of discharge, lethality was denied and psychosis was resolving. Mood and anxiety were well managed. Patient endorsed a plan to follow-up with the aftercare recommendations of the treatment team. Patient was evaluated and deemed to be absent credible lethality, and had achieved the maximum benefit from an inpatient hospitalization, so was discharged. Per his 07/07/2020 [facility] outpatient psychiatric evaluation: [facility] History and Physical Time In: 13:56 Time Out: 14:57 Chief Complaint: here for therapy and medications History of Present Illness: Information retrieved and edited from [facility] Comp. Clinical Assessment completed on: 05/26/20: anxiety and nervousness, wants therapy and medication management; moved here from [place]. Currently living at [facility], since 04/29/20. Before this arrangement, he was in [place], living at an [facility]. He has moved several times back and forth from [place] to [place]. He is hoping his father will retire and his parents will move to [place]; they have a farm in [place]. Real had services with [facility] in 2016. Says he was inpatient due to his voices getting bad and he was suicidal. He says his current diagnosis are bipolar and now he is diagnosed with schizoaffective disorder; he is currently on medications. He is not aware if anyone in his family has bipolar or schizophrenia. He has had suicidal thoughts, chronic in nature. He tried to end his life in 2012 by hanging, reports the rope broke; previously held scissors to his throat; a cousin called him and that is what stopped him from doing it. He lived at [facility](assisted living facility in [place]) for four years, then moved to his Mom's friend's home in [place], [place]. Says he was referred to [facility] by friends of the [place]. Reported symptoms difficulty concentrating, thoughts hard to dismiss, annoyed and irritable, nervous feeling, worries and fears. Reported symptoms difficulty concentrating, thoughts hard to dismiss, annoyed and irritable, nervous feeling, worries and fears. Denied fatigue, pains, headache, or digestive problems. Current habits: Drinks 3 large glasses of tea per day; sometimes drinks 2 cups of coffee in the morning and 3 sodas during the day. Currently reports he sleeps from about midnight or 1 AM up until about 8 or 9 AM; usually obtains about 5 to 6 hours of rest during that time. He rarely takes a nap in the day. Sometimes skips breakfast, and usually eats lunch or dinner. He tries to walk 2 or 3 times per week (up to 1 and half to 2 miles at a time) for physical exercise. History Past Psychiatric History: Information retrieved and edited from [facility] Comp. Clinical Assessment completed on: 05/26/20: Real had services with [facility] in 2016; dx were: F25.1 Schizoaffective DO, Depressed Type; F15.20 Methamphetamine Use Disorder; he [facility]; refer to chart. Most recent inpatient hospitalization was from 06/12/20 to 06/15/20;included suicidal ideation; depressive disorder; and schizoaffective disorder. Real says hospitalization was due to his voices getting bad and he felt suicidal. History of chronic suicidal thoughts with a history of suicide gesture/attempt including: He tried to end his life in 2012 by hanging; the rope broke, he had scissors held to his throat; says a cousin called him and that is what stopped him from doing it. Real says every now and then his voices act up. He says he has one unrecognized male voice which tells him to do bad stuff to himself, but not to anyone else. Usually has increased depression and anxiety in the afternoon, usually from 2 PM to 5 PM. Reports he can a good day, and then out of the blue he doesn?t feel like doing anything; he feels worthless and down in the dumps for no reason; he says every now and then something may trigger it. He has anger problems and when he gets mad at himself, he has hurt himself in the past; hx of cutting; last time he cut himself was in 2018. He used a knife; was cutting his wrist, but hasn't cut deeply enough to be in the hospital. He expressed inability to concentrate, difficulty completing tasks, delayed responses during conversations. Says he had ADHD as a child; reported that he attended special classes, and took Concerta, Ritalin, and Adderall. Says the medication was beneficial at school, but usually wore off by the time he got home. Says he is able to control ADHD symptoms as an adult. Family History: Information retrieved and edited from [facility] Comp. Clinical Assessment completed on: 05/26/20 Family Psychiatric History: Anxiety and Depression History of Suicide in the Family: No Family history of substance abuse: Alcohol (father) Past Medical History: Information retrieved and edited from [facility] Comp. Clinical Assessment completed on: 05/26/20 Primary Care Provider: Yes (Dr. Flowers); last physical exam: Within past year (05.07.20) Client's Medical History: No major medical illness Surgical Procedure: Tonsillectomy; history of foot fracture Substance Use History: Information retrieved and edited from [facility] Comp. Clinical Assessment completed on: 05/26/20 Client history of substance abuse: Alcohol (yes) Age of onset (years): 13 Pattern of use: denied current use and has not used in 3 years; Cannabis (yes) Age of onset (years): 19 Pattern of use: denied current use; has not used in 3 years ; Amphetamine (yes) Age of onset (years): 21 Pattern of use: (previous snorting and smoking it );denied current use; has not used in 3 years; Nicotine (yes) Age of onset (years): 19 Pattern of use: current use: 1 ppd Client?s drug and/or alcohol use in the last 30 days: No Social History: Information retrieved and edited from [facility] Comp. Clinical Assessment completed on: 05/26/20 Childhood history: Real was born in [place]; at age [age], his parents moved near [place], [place]. When he was in 5th grade, he moved to [place]. He graduated high school, then moved to [place], [place]. He says he has a good childhood; his parents were in the home growing up and are still together. He is an only child. He is single; has no children. 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 History: Client denies service Abilities/Interests: tries to stay busy, likes to help others; he loves being outside; listens to music Legal Status/History: Current legal issues denied; denies previous arrests incarceration. Spiritual Pursuits: Other (he prays) Highest Education Level Reached: college (12th grade; reports he had ADHD in school and was on meds.) Academic Performance: Performance at grade level Meds NPU Home Medications Medication Instructions Recorded Confirmed Last Taken Type acetaminophen 500 mg tablet 1,000 mg PO Q6H PRN Pain 08/03/20 11/17/22 11/04/20 09:00 History (Tylenol Extra Strength) metoprolol succinate 25 mg 25 mg PO DAILY@12/15/20 11/17/22 01/31/21 History tablet,extended release 24 hr celecoxib 200 mg capsule (Celebrex) 200 mg PO BID PRN Pain 07/01/21 11/17/22 Unknown History omeprazole 20 mg capsule,delayed 20 mg PO DAILY@09/28/21 11/17/22 Unknown History release bupropion HCl 300 mg 24 hr tablet, 300 mg PO DAILY@11/17/22 11/17/22 Unknown History extended release divalproex 500 mg tablet,extended 1,000 mg PO BEDTIME@11/17/22 11/17/22 Unknown History release 24 hr fluoride (sodium) 1.1 % dental See Rx Instructions .Route .COMPLEX 11/17/22 11/17/22 Unknown History cream (SF 5000 Plus) hydroxyzine pamoate 25 mg capsule 25 mg PO BID PRN Anxiety 11/17/22 11/17/22 Unknown History levothyroxine 100 mcg tablet 100 mcg PO DAILY@11/17/22 11/17/22 Unknown History (Levoxyl) lisinopril 10 mg tablet 10 mg PO DAILY@11/17/22 11/17/22 Unknown History loperamide 2 mg capsule 2 mg PO DAILY PRN Diarrhea 11/17/22 11/17/22 Unknown History melatonin 3 mg tablet 6 mg PO BEDTIME@11/17/22 11/17/22 Unknown History nicotine (polacrilex) 2 mg gum 2 mg PO Q4H PRN Smoking Cessation 11/17/22 11/17/22 Unknown History quetiapine 100 mg tablet 100 mg PO BID PRN 11/17/22 11/17/22 Unknown History agitation/psychosis quetiapine 300 mg tablet 300 mg PO BEDTIME@11/17/22 11/17/22 Unknown History ziprasidone HCl 40 mg capsule 40 mg PO BID@,11/17/22 11/17/22 Unknown History (Geodon) Allergies Allergy/AdvReac Type Severity Reaction Status Date / Time chlorpromazine Allergy Severe ALGY-Anaphy Verified 11/17/22 21:38 laxis haloperidol [From Haldol] Allergy Severe ALGY-Swell Verified 11/17/22 21:38 Lip/Tongue/Throat lurasidone [From Latuda] Allergy Severe ALGY-Swell Verified 11/17/22 21:38 Lip/Tongue/Throat olanzapine [From Zyprexa] Allergy Severe ALGY-Swell Verified 11/17/22 21:38 Lip/Tongue/Throat PFSH NPU PFSH: Medical History Depressive disorder Hallucination Psychiatric care Schizoaffective disorder, depressive type Family History Other Diabetes Hypertension Schizoaffective disorder, depressive type Social History Smoking and tobacco status: current every day smoker e-cigarettes E-Cigarette Details: with nicotine E-cig/vape details: uses a 5000 puff disposable vape device Quit status (tobacco): not considering quitting Second hand smoke exposure: Yes Smoking risk assessment/counseling performed?: No Alcohol intake: never Substance/Drug Use: never Adopted: No Caregiver/support person: Yes Lives independently: No (Staying at [facility] Household members: other Details: Multiple other residents at the facility. Housing: Assisted Living Facility Marital status: Single Number of children: 0 Number of grandchildren: 0 Highest education level completed: High School Graduate service: No Current occupational status: disabled Current occupational exposures/hazards: No Pets and animals: Yes Pets & animals: cat(s) Leisure activites: exercise, music, games and other Leisure activities details: watch TV Sexually active: Yes How many partners: 1 Are you practicing safe sex: No Do you think of yourself as: Straight/Heterosexual Current gender identity: Male Paola/Caodaism: Roman Catholic Special paola needs: No Agree to transfusion: Yes Financial difficulty paying for basics: Not Very Hard Mental Status Exam MSE Comments: This is an obese white male who presents in hospital scrubs with limited grooming and adequate eye contact. No abnormal movements except for mild psychomotor retardation. Cooperative with exam in mild distress. Speech was decreased rate and volume. Mood described as depressed, affect subdued. Thought process mostly organized, thought content: Patient endorsed having suicidal ideation but denied homicidal ideation, there are no delusions reported or noted, he endorsed auditory but denied visual hallucinations. Attention and concentration appeared intact and memory appeared reliable but never formally tested. He is alert and oriented x3. Insight and judgment appear fair, impulse control appears limited. Vitals/I&O/Wt Last Vital Signs Temp 97.4 F L 11/17/22 14:00 Pulse 89 11/17/22 22:00 Resp 16 11/17/22 22:00 BP 134/77 11/17/22 22:00 Pulse Ox 96 11/17/22 22:00 O2 Del Method Room Air 11/17/22 22:00 Weight last 48 hrs Weight 113.398 kg Data NPU 11/17/22 07:35 11/17/22 07:35 A&P Assessment and plan (1) Suicidal ideation: (2) Auditory hallucinations: (3) Schizoaffective disorder, depressive type: Plan This is a 32-year-old white male with a long history of psychosis and mental health challenges who presents with a significant increase in auditory hallucinations and subsequent suicidal ideation against the backdrop of sleep deprivation secondary in part to video game over playing. Plan: 1. Continue current medication. Start abilify 10 mg po qam. 2. Continue every 15 minute checks for safety. 3. Encourage individual, group and milieu therapies. 4. Encourage sober living treatment after discharge at the highest level of care to which he is willing to commit. 5. We will monitor for safety for himself in the community prior to discharge. Involuntary Hold Information 96 Hour Hold: 96 Hour Involuntary Admission: No Attestations NPU Medical Necessity Statement*: Inpatient hospitalization is medically necessary and the clinically appropriate intervention at this time. We will initiate medications and make changes as indicated. He will be in the hospital for over 2 midnights. Likely length of stay 4-6 days Coding Level of Care Code Acute Code for g Fwd Diagnoses Suicidal ideation R45.851 Auditory hallucinations R44.0 Schizoaffective disorder, depressive type F25.1
--- NOTE | 2022-11-18 09:22 | PC.NURSE ---
During morning assessment, patient reports depression, command auditory hallucinations, and thoughts of suicide. Patient denies plant to commit suicide. Patient is eager for help.
[2022-11-18] MEDS: ARIPiprazole 10 mg Tablet PO (11:50)
[2022-11-18] MEDS: hyDROXYzine 25 mg Capsule 50 MG PO ×2 (13:08→19:51)
[2022-11-18 14:00] VITALS: BP 136/77; PULSE 112; RESP 16; TEMP 36.6; O2SAT 96
[2022-11-18] MEDS: pantoprazole DR 40 mg Tablet PO (16:12)
[2022-11-18 19:50] VITALS: BP 123/80; PULSE 88; RESP 18; TEMP 36.7; O2SAT 95
[2022-11-18] MEDS: CELEcoxib 200 mg Capsule PO (19:52)
[2022-11-18] MEDS: divalproex ER 500 mg Tablet (24H) 1000 MG PO (19:52)
[2022-11-18] MEDS: quetiapine 300 mg Tablet PO (19:52)
[2022-11-18] MEDS: trazodone 50 mg Tablet PO (19:52)
--- NOTE | 2022-11-18 20:25 | PC.NURSE ---
/IN ROOM DURING ASSESSMENT. PT C/O PAIN IN BACK 10/31 CELEBREX GIVEN ORDERED SEE MAR FOR DETAILS. PT STATES HE STARTED ABILIFY 10 MG THIS AM AND NOW HE IS NO LONGER HAVING ANY AUDITORY HALLUCINATIONS OR SUICIDAL IDEATION. ALSO DENIES HI AND VH. PT IS PLEASANT AND COOPERATIVE. CONTINUES TO WEAR DEPENDS DUE TO REPORTED URINARY INCONTINENCE. PT STATES ITS BECAUSE HE TAKES GEODON. PM MEDICATIONS TAKEN WITHOUT ISSUE. REQUESTS SLEEP MEDICATION, TRAZODONE 50 MG GIVEN ORDERED. AND 50 MG OF VISTARIL GIVEN FOR REPORTED ANXIETY.
[2022-11-19 06:00] VITALS: BP 118/85; PULSE 104; RESP 17; O2SAT 98
[2022-11-19] MEDS: lisinopril 10 mg Tablet PO (06:37)
[2022-11-19] MEDS: buPROPion XL (24 HR) 300 mg Tablet PO (06:37)
[2022-11-19] MEDS: ziprasidone hcl 60 mg Capsule PO ×2 (06:37→16:05)
[2022-11-19] MEDS: metoprolol succinate ER (24 HR) 25 mg Tablet PO (06:37)
--- NOTE | 2022-11-19 07:32 | P.NPUPN_ITS ---
Subjective NPU Subjective: Patient presented today reporting that he is doing okay and adjusting to the Abilify. He denied any side effects to the medication. He reports that he slept fairly well last night and knows importance of him getting his sleep back on track. We discussed the return of Dr. Figueroa tomorrow and that he would handle issues surrounding discharge. Mental Status Exam MSE Comments: This is an obese white male who presents in hospital scrubs with limited grooming and adequate eye contact. No abnormal movements except for mild psychomotor retardation. Cooperative with exam in mild distress. Speech was decreased rate and volume. Mood described as depressed, affect subdued. Thought process mostly organized, thought content: Patient endorsed having suicidal ideation but denied homicidal ideation, there are no delusions reported or noted, he endorsed auditory but denied visual hallucinations. Attention and concentration appeared intact and memory appeared reliable but never formally tested. He is alert and oriented x3. Insight and judgment appear fair, impulse control appears limited. Vitals/I&O/Wt Last Vital Signs Temp 98.0 F 11/18/22 19:50 Pulse 104 H 11/19/22 06:00 Resp 17 11/19/22 06:00 BP 118/85 11/19/22 06:00 Pulse Ox 98 11/19/22 06:00 O2 Del Method Room Air 11/19/22 06:00 Data NPU 11/17/22 07:35 11/17/22 07:35 A&P Assessment and plan (1) Suicidal ideation: (2) Auditory hallucinations: (3) Schizoaffective disorder, depressive type: Plan This is a 32-year-old white male with a long history of psychosis and mental health challenges who presents with a significant increase in auditory tuttle llucinations and subsequent suicidal ideation against the backdrop of sleep deprivation secondary in part to video game over playing. Plan: 1. Continue current medication. Started abilify 10 mg po qam. consider increase in Abilify and possible decrease in Geodon. 2. Continue every 15 minute checks for safety. 3. Encourage individual, group and milieu therapies. 4. Encourage sober living treatment after discharge at the highest level of care to which he is willing to commit. 5. We will monitor for safety for him in the community prior to discharge. Involuntary Hold Information 96 Hour Hold: 96 Hour Involuntary Admission: No Attestations NPU Medical Necessity Statement*: Inpatient hospitalization is medically necessary and the clinically appropriate intervention at this time. We will initiate medications and make changes as indicated. Likely length of stay 3-5 days Coding Level of Care Code Acute Code for Chg Fwd Diagnoses Suicidal ideation R45.851 Auditory hallucinations R44.0 Schizoaffective disorder, depressive type F25.1
[2022-11-19] MEDS: ARIPiprazole 10 mg Tablet PO (08:59)
[2022-11-19] MEDS: CELEcoxib 200 mg Capsule PO (09:24)
[2022-11-19] MEDS: ondansetron 4 MG Tablet PO (11:55)
[2022-11-19] MEDS: loperamide 2 mg Capsule PO (11:55)
[2022-11-19 14:00] VITALS: BP 132/92; PULSE 97; RESP 16; TEMP 36.6; O2SAT 95
[2022-11-19] MEDS: hyDROXYzine 25 mg Capsule 50 MG PO (16:05)
[2022-11-19] MEDS: pantoprazole DR 40 mg Tablet PO (16:05)
--- NOTE | 2022-11-19 16:07 | PC.NURSE ---
PRN Facility Practice Specialist Patient requested something for anxiety due to another patient yelling in the hallway from hallucinations. Vistaril 50mg PO administered.
[2022-11-19 19:39] VITALS: BP 146/90; PULSE 103; RESP 18; TEMP 36.6; O2SAT 96
[2022-11-19] MEDS: divalproex ER 500 mg Tablet (24H) 1000 MG PO (21:10)
[2022-11-19] MEDS: quetiapine 300 mg Tablet PO (21:10)
[2022-11-20] MEDS: CELEcoxib 200 mg Capsule PO (05:19)
[2022-11-20 06:00] VITALS: BP 115/81; PULSE 112; RESP 18; TEMP 36.4; O2SAT 96
[2022-11-20] MEDS: buPROPion XL (24 HR) 300 mg Tablet PO (06:27)
[2022-11-20] MEDS: metoprolol succinate ER (24 HR) 25 mg Tablet PO (06:27)
[2022-11-20] MEDS: ziprasidone hcl 60 mg Capsule PO (06:27)
[2022-11-20] MEDS: lisinopril 10 mg Tablet PO (06:27)
[2022-11-20] MEDS: ARIPiprazole 10 mg Tablet PO (08:21)
--- NOTE | 2022-11-20 11:52 | W.PM.NPUPNS ---
Subjective NPU Subjective: Real is a 32-year-old white male with schizoaffective disorder admitted with command auditory hallucinations. He had reported that he was feeling well better today. He did not complain of urinary retention today. He had stated that the voices were quieter. The patient had reported having some difficulties with maintaining compliance with his medication regimen on an outpatient basis. Patient had reported a history of manic symptoms as well in the past. He had minimized any racing thoughts today. He had reported continued problems with concentration. Mental Status Exam MSE Comments: This is an obese white male who presents in hospital scrubs with limited grooming and adequate eye contact. No abnormal movements except for mild psychomotor retardation. Cooperative with exam in mild distress. Speech was decreased in rate and normal in volume. Mood described as better. His affect was subdued. Thought process mostly organized, thought content: Patient endorsed having suicidal ideation but denied homicidal ideation, there are no delusions reported or noted, he endorsed auditory but denied visual hallucinations. Attention and concentration appeared intact and memory appeared reliable but never formally tested. He is alert and oriented x3. Insight was fair, and judgment appear fair, impulse control appears limited. Vitals/I&O/Wt Last Vital Signs Temp 97.6 F 11/20/22 06:00 Pulse 112 H 11/20/22 06:00 Resp 18 11/20/22 06:00 BP 115/81 11/20/22 06:00 Pulse Ox 96 11/20/22 06:00 O2 Del Method Room Air 11/20/22 06:00 Weight last 48 hrs Weight 108.012 kg Data NPU 11/17/22 07:35 11/17/22 07:35 A&P Assessment and plan (1) Suicidal ideation: (2) Auditory hallucinations: (3) Schizoaffective disorder, depressive type: Plan This is a 32-year-old white male with a long history of psychosis and mental health challenges who presents with a significant increase in auditory hallucinations and subsequent suicidal ideation against the backdrop of sleep deprivation secondary in part to video game over playing. Plan: 1. Continue current medication. Increase abilify to 15mg in am, taper and eventually discontinue geodon while continuing Seroquel 300mg at night. Continue Depakote 1000mg ER daily. 2. Continue every 15 minute checks for safety. 3. Encourage individual, group and milieu therapies. 4. Encourage sober living treatment after discharge at the highest level of care to which he is willing to commit. 5. We will monitor for safety for him in the community prior to discharge. Involuntary Hold Information 96 Hour Hold: 96 Hour Involuntary Admission: No Attestations NPU Medical Necessity Statement*: Inpatient hospitalization is medically necessary and the clinically appropriate intervention at this time. We will initiate medications and make changes as indicated. His Likely length of stay 5-7 days. Coding Level of Care Code Acute Code for [facility] Fwd Diagnoses Suicidal ideation R45.851 Auditory hallucinations R44.0 Schizoaffective disorder, depressive type F25.1
[2022-11-20 13:43] VITALS: BP 147/89; PULSE 97; RESP 16; TEMP 36.9; O2SAT 97
[2022-11-20] MEDS: acetaminophen 325 mg Tablet 650 MG PO (13:55)
[2022-11-20] MEDS: quetiapine 100 mg Tablet PO (15:45)
--- NOTE | 2022-11-20 15:45 | PC.NURSE ---
PRN SEROQUEL 100 MG GIVEN PO PER PT C/O STATED ANXIETY
[2022-11-20] MEDS: ziprasidone hcl 40 mg Capsule PO (16:41)
[2022-11-20] MEDS: pantoprazole DR 40 mg Tablet PO (16:41)
[2022-11-20] MEDS: hyDROXYzine 25 mg Capsule 50 MG PO (18:29)
[2022-11-20 20:12] VITALS: BP 128/78; PULSE 97; RESP 18; TEMP 36.6; O2SAT 95
[2022-11-20] MEDS: quetiapine 300 mg Tablet PO (20:45)
[2022-11-20] MEDS: benztropine 1 mg Tablet PO (20:46)
[2022-11-20] MEDS: divalproex ER 500 mg Tablet (24H) 1000 MG PO (20:46)
[2022-11-20] MEDS: trazodone 50 mg Tablet PO (20:46)
--- NOTE | 2022-11-20 22:46 | PC.NURSE ---
PT REPORTS TO THIS RN THAT THE VOICES ARE COMING BACK DID THE OTHER NURSES TELL YOU> PT WAS ASSURED THAT STAFF RELAYED THE MESSAGE. PT STATES HE IS HAVING COMMAND AUDITORY HALLUCINATIONS THAT ARE TELLING HIM TO HARM SELF. ENDORSES SI WITH NO PLAN. DENIES PAIN. DENIES HI AND VH AT THIS TIME. PT REQUESTED SLEEP MEDICATIONS AND ANXIETY MEDS. C/O MUSCLE STIFFNESS WELL. PT HAD ALREADY RECEIVED VISTARIL AT 1830. PT WAS GIVEN TRAZODONE 50 MG AND COGENTIN WITH HIS BEDTIME MEDS. SUPPORT VOICED. PT WAS CONTRACTED FOR SAFETY.
[2022-11-21] MEDS: buPROPion XL (24 HR) 300 mg Tablet PO (05:57)
[2022-11-21] MEDS: ziprasidone hcl 40 mg Capsule PO (05:57)
[2022-11-21] MEDS: metoprolol succinate ER (24 HR) 25 mg Tablet PO (05:58)
[2022-11-21] MEDS: lisinopril 10 mg Tablet PO (05:58)
[2022-11-21 06:00] VITALS: BP 143/75; PULSE 89; RESP 18; O2SAT 98
--- NOTE | 2022-11-21 06:05 | PC.NURSE ---
PT WAS WONDERING WHY HE WASN'T TAKING HIS LEVOTHYROXINE, RN INFORMED HIM I WAS NOT SURE BUT I WOULD LOOK INTO IT. MEDICATION LIST REVIEWED AND IT WAS OBSERVED THAT PT WAS TO HAVE LEVOTHYROXINE 100 MCG PO DAILY AT [address] TAPIA AND NEW ORDERS RECEIVED TO START LEVOTHYROXINE 100 MCGS PO DAILY AT 0700AM. EDUCATED PT ON NEW ORDERS. PT VERBALIZED UNDERSTANDING. ALL QUESTIONS ANSWERED AND SUPPORT.
--- NOTE | 2022-11-21 06:26 | PC.NURSE ---
PT ASKED WHY HE IS NOT TAKING HIS LEVOTHYROXINE, THIS RN INFORMED PT THAT I WAS NOT SURE WHY. PT STATED HE HAS TO TAKE IT. UPON REVIEW OF CHART, LABS AND HOME MEDICATIONS. PT TSH WAS 5.62 ON 11/17/22. PT WAS NOTIFIED OF LABS AND THAT WAS WHY HE WAS NOT TAKING THE MEDICATION. PT VERBALIZED UNDERSTANDING.
[2022-11-21] MEDS: ARIPiprazole 10 mg Tablet 15 MG PO (08:21)
[2022-11-21] MEDS: CELEcoxib 200 mg Capsule PO (10:20)
[2022-11-21] MEDS: hyDROXYzine 25 mg Capsule 50 MG PO ×2 (11:28→17:23)
--- NOTE | 2022-11-21 12:21 | W.PM.NPUPNS ---
Subjective NPU Subjective: Real is a 32-year-old white male with schizoaffective disorder admitted with command auditory hallucinations. The patient was agreeable with a simplification of his medications and was agreeable to a tapering of the Geodon. He had continued to endorse auditory hallucinations but states that he felt better with the Abilify. He had reported desire to return back to his [facility] at lamp light when stabilized. He had reported that the voices were still present. He had spent much of the day wandering the hallways and appeared to repeat the same questions with the typewriter aligner of this note despite being informed that his medications were being adjusted. He had endorsed previous side effects from various antipsychotic medications. He had endorsed a past history of astrid stating that he had stayed up for several days in a row playing video games. He had reported adequate sleep here at this time. Mental Status Exam MSE Comments: This is an obese white male who presents in hospital scrubs with limited grooming and adequate eye contact. No abnormal movements except for mild psychomotor slowing. He was cooperative with exam in mild distress. Speech was decreased in rate and normal in volume. Mood described as better. His affect remained odd and subdued.. Thought process mostly organized, thought content: Patient endorsed no suicidal ideation but denied homicidal ideation, there are no delusions reported or noted, he endorsed auditory but denied visual hallucinations. He reported the hallucinations were command in nature. His attention and concentration appeared intact and memory appeared reliable but never formally tested. He is alert and oriented x3. Insight was fair, and judgment appear fair, impulse control appears limited. Vitals/I&O/Wt Last Vital Signs Temp 97.9 F 11/20/22 20:12 Pulse 89 11/21/22 06:00 Resp 18 11/21/22 06:00 BP 143/75 11/21/22 06:00 Pulse Ox 98 11/21/22 06:00 O2 Del Method Room Air 11/21/22 06:00 Weight last 48 hrs Weight 108.012 kg Data NPU 11/17/22 07:35 11/17/22 07:35 A&P Assessment and plan (1) Suicidal ideation: (2) Auditory hallucinations: (3) Schizoaffective disorder, depressive type: Plan This is a 32-year-old white male with a long history of psychosis and mental health challenges who presents with a significant increase in auditory hallucinations and subsequent suicidal ideation against the backdrop of sleep deprivation secondary in part to video game over playing. Plan: 1. Continue current medication. Continue abilify 15mg in am, reduce geodon to 20mg bid while continuing Seroquel 300mg at night. Continue Depakote 1000mg ER daily. 2. Continue every 15 minute checks for safety. 3. Encourage individual, group and milieu therapies. 4. Encourage sober living treatment after discharge at the highest level of care to which he is willing to commit. 5. We will monitor for safety for him in the community prior to discharge. Involuntary Hold Information 96 Hour Hold: 96 Hour Involuntary Admission: No Attestations NPU Medical Necessity Statement*: Inpatient hospitalization is medically necessary and the clinically appropriate intervention at this time. We will initiate medications and make changes as indicated. His likely length of stay 5-7 days. Coding Level of Care Code Acute Code for [facility] Fwd Diagnoses Suicidal ideation R45.851 Auditory hallucinations R44.0 Schizoaffective disorder, depressive type F25.1
[2022-11-21 14:00] VITALS: BP 133/79; PULSE 100; RESP 16; TEMP 36.6; O2SAT 97
[2022-11-21] MEDS: ziprasidone hcl 20 mg Capsule PO (16:10)
[2022-11-21] MEDS: pantoprazole DR 40 mg Tablet PO (16:11)
[2022-11-21] MEDS: divalproex ER 500 mg Tablet (24H) 1000 MG PO (20:13)
[2022-11-21] MEDS: quetiapine 300 mg Tablet PO (20:14)
[2022-11-21] MEDS: acetaminophen 325 mg Tablet 650 MG PO (20:14)
[2022-11-21] MEDS: trazodone 50 mg Tablet PO (20:14)
[2022-11-21 20:21] VITALS: BP 146/83; PULSE 96; RESP 18; TEMP 36.9; O2SAT 96
--- NOTE | 2022-11-21 21:42 | PC.NURSE ---
PT REPORTS IN THE EVENING HIS VOICES ARE GETTING WORSE. PT WAS GIVEN VISTARIL ON LAST SHIFT. PT REQUESTS TRAZODONE TO HELP SLEEP TONIGHT. PT WAS GIVEN TRAZODONE 50 MG ORDERED FOR SLEEP. PT DENIES SI/HI AND VH. ENDORSES AH THAT TELL HIM BAD THINGS BUT I'M NOT WANTING TO HURT MYSELF. CONTRACTED FOR SAFETY, VERBALIZED UNDERSTANDING AND REPORTING INCREASE THOUGHTS OF HARM TO STAFF. PT REPORTS BACK PAIN 7/10 TYLENOL GIVEN. [employer] ACC[employer]ING SPECIALIST SPOKE TO PT AT LENGTH ABOUT HIS VOICES. PT STATES HE THINKS HE NEEDS HIS PRN SEROQUEL AT 400 PM TO GET AHEAD OF THE VOICES. PT INSISTS THAT I NOTIFY THE NURSING STAFF IN THE AM TO LET THEM KNOW. PT ASSURED THAT IT WOULD BE PASSED ON. SUPPORT VOICED.
[2022-11-22] MEDS: CELEcoxib 200 mg Capsule PO ×2 (00:51→09:26)
[2022-11-22] MEDS: hyDROXYzine 25 mg Capsule 50 MG PO ×3 (02:17→18:34)
--- NOTE | 2022-11-22 02:18 | PC.NURSE ---
PT REQUEST VISTARIL FOR ANXIETY. PT WAS GIVEN VISTARIL 50 MG PO ORDERED.
[2022-11-22 06:00] VITALS: BP 128/80; PULSE 99; RESP 18; O2SAT 95
[2022-11-22] MEDS: ziprasidone hcl 20 mg Capsule PO (06:18)
[2022-11-22] MEDS: metoprolol succinate ER (24 HR) 25 mg Tablet PO (06:18)
[2022-11-22] MEDS: lisinopril 10 mg Tablet PO (06:18)
[2022-11-22] MEDS: buPROPion XL (24 HR) 300 mg Tablet PO (06:18)
[2022-11-22] MEDS: ARIPiprazole 10 mg Tablet 15 MG PO (09:05)
--- NOTE | 2022-11-22 12:07 | P.NPUPN_ITS ---
Subjective NPU Subjective: Real is a 32-year-old white male with schizoaffective disorder admitted with command auditory hallucinations. The patient had reported that he was having more command auditory hallucinations telling him to hurt himself that occurred at night. He had reported that he had hopes of getting better. He had reported that his depression was under control but he continued to worry about his i ntermittent hallucinations. Staff notes that patient had spent some time throughout the day pacing while remaining compliant and redirectable. He had acknowledged being compliant with his medications while at the [facility]. The patient had reported having adequate sleep but did report an increase in the presence of hearing a voice in his head telling him to hurt himself. Mental Status Exam MSE Comments: This is an obese white male who presents in hospital scrubs with limited grooming and adequate eye contact. No abnormal movements except for mild psychomotor slowing. He was cooperative with exam in mild distress. Speech was decreased in rate and normal in volume. Mood described as okay.. His affect was blunted. Thought process was linear and organized, thought content: He denied any homicidal or suicidal ideation. He reported auditory hallucinations were command in nature telling him to hurt himself. His attention and concentration appeared intact and memory appeared reliable but never formally tested. He is alert and oriented x3. Insight was fair, and judgment appear fair, impulse control appears limited. Vitals/I&O/Wt Last Vital Signs Temp 98.4 F 11/21/22 20:21 Pulse 99 11/22/22 06:00 Resp 18 11/22/22 06:00 BP 128/80 11/22/22 06:00 Pulse Ox 95 11/22/22 06:00 O2 Del Method Room Air 11/22/22 06:00 Data NPU 11/17/22 07:35 11/17/22 07:35 A&P Assessment and plan (1) Schizoaffective disorder, depressive type: (2) Suicidal ideation: (3) Auditory hallucinations: Plan This is a 32-year-old white male with a long history of psychosis and mental health challenges who presents with a significant increase in auditory hallucinations and subsequent suicidal ideation with a hx of schizoaffective di sorder. Plan: 1. Increase Abilify to 20 mg daily to target psychosis and continue Seroquel 300mg at night. Continue Depakote 1000mg ER daily. Geodon discontinued. 2. Continue every 15 minute checks for safety. 3. Encourage individual, group and milieu therapies. 4. Encourage sober living treatment after discharge at the highest level of care to which he is willing to commit. 5. We will monitor for safety for him in the community prior to discharge. Involuntary Hold Information 96 Hour Hold: 96 Hour Involuntary Admission: No Attestations NPU Medical Necessity Statement*: Inpatient hospitalization is medically necessary and the clinically appropriate intervention at this time. We will initiate medications and make changes as indicated. His likely length of stay 5-7 days. Coding Level of Care Code Acute Code for [facility] Fwd Diagnoses Schizoaffective disorder, depressive type F25.1 Suicidal ideation R45.851 Auditory hallucinations R44.0
[2022-11-22 14:00] VITALS: BP 127/77; PULSE 91; RESP 20; TEMP 36.4; O2SAT 94
[2022-11-22] MEDS: pantoprazole DR 40 mg Tablet PO (16:00)
[2022-11-22] MEDS: ARIPiprazole 10 mg Tablet 5 MG PO (16:01)
[2022-11-22] MEDS: acetaminophen 325 mg Tablet 650 MG PO (17:35)
[2022-11-22] MEDS: trazodone 50 mg Tablet PO (20:02)
[2022-11-22] MEDS: divalproex ER 500 mg Tablet (24H) 1000 MG PO (20:02)
[2022-11-22] MEDS: quetiapine 300 mg Tablet PO (20:02)
[2022-11-22 20:46] VITALS: BP 148/88; PULSE 84; RESP 18; TEMP 36.4; O2SAT 98
[2022-11-22] MEDS: quetiapine 100 mg Tablet PO (23:13)
[2022-11-23 06:00] VITALS: BP 131/89; PULSE 112; RESP 18; O2SAT 100
[2022-11-23] MEDS: metoprolol succinate ER (24 HR) 25 mg Tablet PO (06:07)
[2022-11-23] MEDS: buPROPion XL (24 HR) 300 mg Tablet PO (06:07)
[2022-11-23] MEDS: lisinopril 10 mg Tablet PO (06:07)
[2022-11-23] MEDS: ARIPiprazole 10 mg Tablet 15 MG PO (08:18)
--- NOTE | 2022-11-23 08:46 | PC.NURSE ---
PT CURRENTLY DENIES SI/HI/AH/VH. PT CURRENTLY APPEARS TO BE IN A GOOD MOOD. PT STATES THAT HE HAS NOT HEARD VOICES SINCE YESTERDAY. PT CURRENT NEEDS ARE MET WILL CONTINUE TO MONITOR PT.
[2022-11-23] MEDS: ARIPiprazole 10 mg Tablet 5 MG PO (10:35)
--- NOTE | 2022-11-23 11:14 | DCPLANNER ---
IMM was printed and explained and give to pt and copy put in file.
--- NOTE | 2022-11-23 12:43 | P.NPUDS_ITS ---
Diagnoses at Discharge Discharge Diagnosis (1) Schizoaffective disorder, depressive type: Status: Chronic (2) Suicidal ideation: Status: Resolved (3) Auditory hallucinations: Status: Chronic Reason for Visit Reason for Visit: SI Brief History: HPI NPU History of Present Illness Real Black is a 32 year old male who presented to the ED with the following report: Chief Complaint: Psychiatric Symptoms Stated Complaint: SI Time Seen by Provider: 11/17/22 07:11 Source: patient Mode of arrival: ambulatory Limitations: no limitations History of Present Illness:?? Patient is a 32-year-old male with a history of schizoaffective disorder here for complaints of auditory hallucinations stating that the voices are telling him to harm himself.? He states they are not telling him any specific ways to harm himself. He does state he feels like he might act on the voices.? He reports a previous suicide attempt years ago.? He states he does have a psychiatrist at [facility].? Patient is requesting hospitalization.? He denies homicidal ideations.? No visual hallucinations.? Denies drug or alcohol use.? Patient is a resident at [facility]. ? MD complaint: suicidal ideation and other (auditory hallucinations) Onset (ago): day(s) Duration: constant History of same: Yes Relieving factors: none Exacerbating factors: none Associated psychiatric symptoms: depression, suicidal ideation and auditory hallucinations Associated symptoms: Reports auditory hallucinations, depression and suicidal ideation; Deny visual hallucinations or homicidal ideation Treatments prior to arrival: none If self harm: admits thoughts of self harm He was admitted to the neuropsychiatric unit for definitive treatment of those issues.? He presents today reporting he has been doing well in general in the past 13 months with only intermittent AH occasionally with good medication adherence overall. He reports that he had been doing well until about 3 weeks ago when for some reason he cannot explain he began being more drawn to playing his video games at night and staying up.? As he was having 3 and 4-day stretches where he was having little to no sleep his hallucinations returned and they started getting worse eventually leading to him having command auditory halluc inations to harm himself but not specifically to kill himself per se.? He reports that as a got out of control he knew he needed to come in and may be get his sleep back under control and consider changes in his medication.? We discussed the risks, benefits and alternatives of him starting Abilify as we had attempted this in the past and he understood and agreed to proceed as is documented in this note.? This is in part due to the fact that increases in his Geodon have proved challenging such that he has been somewhat stuck at this 40 mg p.o. twice daily dosing.? Also he had been on several medications back then and polypharmacy was a concern but he has been able to decrease some of those medications.? We reviewed his records and identified his 10/03/2022 outpatient evaluation from [facility] as being a comprehensive exploration of his history and excerpt is included below. Per his 10/03/2022 [facility] inpatient psychiatric discharge summary: Discharge Diagnosis (1) Suicidal ideation: ? ? ? Status: Acute (2) Auditory hallucinations: ? ? ? Status: Acute (3) Schizoaffective disorder, depressive type: ? ? ? Status: Chronic Reason for Visit Reason for Visit:?? SI? Brief History: Real Black is a 31 year old male admitted to the neuropsychiatry unit for the following report. Mr. Black is a 31-year-old male with history of schizoaffective disorder presenting to the emergency department due to suicidal ideation and hallucinations.? He reports history of similar however had been doing well.? Symptoms started yesterday morning without known specific provoking factor.? He reports compliance with medication regimen and denies other associated significant changes in related depressive symptoms.? Intensity of hallucinations have been worsening.? They tell him to hurt himself.? He has had increased thoughts of hurting himself because of these voices.? Otherwise denies medical complaints.? No other specific changes in health, exacerbating, or alleviating factors identified. He was admitted to the neuropsychiatry unit for definitive treatment of these issues.? He is well known to this unit with multiple admissions.? The last admission was in June and at that time we changed him from Geodon to Invega and increased his Wellbutrin to 300 mg daily.? He feels like those changes have been working well.? He denies anything that could precipitate a worsening of his auditory hallucinations.? He says he occasionally has flareups of his hallucinations but this is much worse than normal.? He has been generally doing well since he left the hospital in June.? He reported to his therapist and psychiatric nurse practitioner that he had been doing well in recent appointments.? He denies any drug use.? He denies any stress at [facility] where he lives.? He denies any family stress.? He says that he has been compliant with medications.? His mood has been fairly good.? He requested that his Invega be increased.? I agreed to do that for a couple of days and then reevaluate. Hospital Course He slowly acclimated to the individual, group and milieu therapies provided.? He was continued on his medications except for Invega was gradually increased to 9 mg in the morning and 6 mg at bedtime.? He had urinary incontinence on 6 mg twice a day and Cogentin was added.? He had a similar problem with Geodon.? We talked about trying a different antipsychotic but he felt that Invega was good for him and wanted to try that with the Cogentin and increase the dose.? He tolerated these doses and showed steady improvement during his stay. ? He was able to contract for safety outside hospital prior to discharge.? During the hospitalization, patient had routine laboratory studies which were within normal limits except for few outliers.? Additionally there was a general medical evaluation which was also within normal limits and revealed no new acute processes. Discharge Summary: At the time of discharge, lethality was denied and psychosis was resolving.? Mood and anxiety were well managed.? Patient endorsed a plan to follow-up with the aftercare recommendations of the treatment team.? Patient was evaluated and deemed to be absent credible lethality, and had achieved the maximum benefit from an inpatient hospitalization, so was discharged. Per his 07/07/2020 [facility] outpatient psychiatric evaluation: [facility] History and Physical Time In: 13:56 Time Out: 14:57 Chief Complaint: here for therapy and medications History of Present Illness: Information retrieved and edited from [facility] Comp. Clinical Assessment completed on: 05/26/20: anxiety and nervousness, wants therapy and medication management; moved here from [place]. Currently living at [facility], since 04/29/20. Before this arrangement, he was in [place],? 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 He has moved several times back and forth from [place] to [place]. He is hoping his father will retire and his parents will move to [place]; they have a farm in [place]. Real had services with [facility] in 2016. Says he was inpatient due to his voices getting bad and he was suicidal. He says his current diagnosis are bipolar and now he is diagnosed with schizoaffective disorder; he is currently on medications. He is not aware if anyone in his family has bipolar or schizophrenia. He has had suicidal thoughts, chronic in nature. He tried to end his life in 2012 by hanging, reports the rope broke; previously held scissors to his throat; a cousin called him and that is what stopped him from doing it. He lived at [facility](assisted living facility in [place]) for four years, then moved to his Mom's friend's home in [place], [place]. Says he was referred to [facility] by friends of the [place]. Reported symptoms difficulty concentrating, thoughts hard to dismiss, annoyed and irritable, nervous feeling, worries and fears. Reported symptoms difficulty concentrating, thoughts hard to dismiss, annoyed and irritable, nervous feeling, worries and fears.? Denied fatigue, pains, headache, or digestive problems. Current habits: Drinks 3 large glasses of tea per day; sometimes drinks 2 cups of coffee in the morning and 3 sodas during the day.? Currently reports he sleeps from about midnight or 1 AM up until about 8 or 9 AM; usually obtains about 5 to 6 hours of rest during that time.? He rarely takes a nap in the day.? Sometimes skips breakfast, and usually eats lunch or dinner.? He tries to walk 2 or 3 times per week (up to 1 and half to 2 miles at a time) for physical exercise. History Past Psychiatric History:? Information retrieved and edited from [facility] Comp. Clinical Assessment completed on: 05/26/20:? Real had services with [facility] in 2016; dx were: F25.1 Schizoaffective DO, Depressed Type; F15.20 Methamphetamine Use Disorder; he has had several NPU stays at [facility]; refer to chart. Most recent inpatient hospitalization was from? 06/12/20 to 06/15/20;included suicidal ideation; depressive disorder; and schizoaffective disorder. Real says hospitalization was due to his voices getting bad and he felt suicidal.? History of chronic suicidal thoughts with a history of suicide gesture/attempt including: He tried to end his life in 2012 by hanging; the rope broke, he had scissors held to his throat; says a cousin called him and that is what stopped him from doing it. Real says every now and then his voices act up. He says he has one unrecognized male voice which tells him to do bad stuff to himself, but not to anyone else.? Usually has increased depression and anxiety in the afternoon, usually from 2 PM to 5 PM.? Reports he can a good day, and then out of the blue he doesn?t feel like doing anything; he feels worthless and down in the dumps for no reason; he says every now and then something may trigger it. He has anger problems and when he gets mad at himself, he has hurt himself in the past; hx of cutting; last time he cut himself was in 2018. He used a knife; was cutting his wrist, but hasn't cut deeply enough to be in the hospital. He expressed inability to concentrate, difficulty completing tasks, delayed responses during conversations.? Says he had ADHD as a child; reported that he attended special classes, and took Concerta, Ritalin, and Adderall.? Says the medication was beneficial at school, but usually wore off by the time he got home.? Says he is able to control ADHD symptoms as an adult. Family History: Information retrieved and edited from [facility] Comp. Clinical Assessment completed on: 05/26/20 Family Psychiatric History: Anxiety and Depression History of Suicide in the Family: No Family history of substance abuse: Alcohol (father) Past Medical History: Information retrieved and edited from [facility] Comp. Clinical Assessment completed on: 05/26/20 Primary Care Provider: Yes (Dr. Flowers); last physical exam: Within past year (05.07.20) Client's Medical History: No major medical illness Surgical Procedure: Tonsillectomy; history of foot fracture Substance Use History: Information retrieved and edited from [facility] Comp. Clinical Assessment completed on: 05/26/20 Client history of substance abuse: Alcohol (yes) Age of onset (years): 13 Pattern of use: denied current use and has not used in 3 years; Cannabis (yes) Age of onset (years): 19 Pattern of use: denied current use; has not used in 3 years ; Amphetamine (yes) Age of onset (years): 21 Pattern of use: (previous snorting and smoking it );denied current use; has not used in 3 years; Nicotine (yes) Age of onset (years): 19 Pattern of use: current use: 1 ppd Client?s drug and/or alcohol use in the last 30 days: No Social History: Information retrieved and edited from [facility] Comp. Clinical Assessment completed on: 05/26/20 Childhood history: Real was born in [place]; at age [age], his parents moved? near [place], [place]. When he was in 5th grade, he moved to [place]. He graduated high school, then moved to [place], [place]. He says he has a good childhood; his parents were in the home growing up and are still together. He is an only child. He is single; has no children. 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 History: Client denies service Abilities/Interests: tries to stay busy, likes to help others; he loves being outside; listens to music Legal Status/History: Current legal issues denied; denies previous arrests incarceration. Spiritual Pursuits: Other (he prays) Highest Education Level Reached: college (12th grade; reports he had ADHD in school and was on meds.) Academic Performance: Performance at grade level Hospital Course Hospital Course During the hospitalization, the patient had routine laboratory studies which were within normal limits except for a few outliers.? Additionally, there was a general medical evaluation which was also within normal limits and revealed no new acute processes.? At the time of discharge, lethality was denied and psychosis was resolving.? Mood and anxiety were well managed.? The patient endorsed a plan to avoid all drugs of abuse and follow up with the aftercare recommendations of the treatment team.? The patient was evaluated and deemed to be absent credible lethality and had achieved the maximum benefit from an inpatient hospitalization, and so was discharged.? The patient did not appear to show benefit from the additional of Geodon and this was tapered and discontinued. Abilify was added and titrated up to a dose of 20 mg with significant improvement noted in both the patient's mood and in the reduction and intensity of his hallucinations. He remained on Seroquel as previously prescribed along with Depakote throughout his hospital stay. Involuntary Hold Information 96 Hour Hold: 96 Hour Involuntary Admission: No Mental Status Exam MSE Comments: This is an obese white male who presents in hospital scrubs with limited grooming and adequate eye contact. No abnormal movements except for mild psychomotor slowing. He was cooperative with exam in no acute distress. Speech was normal in rate and normal in volume. Mood described as good. His affect remained somewhat flat. Thought process was linear and organized, thought content: He denied any homicidal or suicidal ideation. He reported no auditory hallucinations on discharge. His attention and concentration appeared intact and memory appeared reliable but never formally tested. He is alert and oriented x3. Insight was fair, and judgment appear fair, impulse control appears improved. Discharge Data Studies Completed and Pending: Laboratory Results WBC 7.1 10^3/uL (4.0- 10.0) 11/17/22 07:35 RBC 4.89 10^6/uL (4.1 -5.3) 11/17/22 07:35 Hgb 15.0 g/dL (11.7-1 6.6) 11/17/22 07:35 Hct 44.5 % (42.0-52.0 ) 11/17/22 07:35 MCV 91.0 fl (80-94) 11/17/22 07:35 MCH 30.7 pg (28.0-34. 0) 11/17/22 07:35 MCHC 33.7 g/dL (30.0-3 6.0) 11/17/22 07:35 RDW 12.7 % (12.1-15.1 ) 11/17/22 07:35 Plt Count 217 10^3/cmm (130 -400) 11/17/22 07:35 MPV 10.3 fL (7.4-10.4 ) 11/17/22 07:35 Neut % (Auto) 51.2 % 11/17/22 07:35 Lymph % (Auto) 40.8 % 11/17/22 07:35 [place] % (Auto) 5.6 % 11/17/22 07:35 Eos % (Auto) 1.7 % 11/17/22 07:35 Baso % (Auto) 0.3 % 11/17/22 07:35 Neut # (Auto) 3.65 10^3/uL (1.8 -7.7) 11/17/22 07:35 Lymph # (Auto) 2.9 10^3/uL (0.8- 4.8) 11/17/22 07:35 [place] # (Auto) 0.4 10^3/uL (0.2- 0.9) 11/17/22 07:35 Eos # (Auto) 0.1 10^3/uL (0.0- 0.8) 11/17/22 07:35 Baso # (Auto) 0.0 10^3/uL (0.0- 0.1) 11/17/22 07:35 Nucleated RBC % (a uto) 0 % 11/17/22 07:35 Nucleated RBCs # 0.0 /100WBC 11/17/22 07:35 Sodium 136 mmol/L (136-1 45) 11/17/22 07:35 Potassium 4.2 mmol/L (3.5-5 .1) 11/17/22 07:35 Chloride 100 mmol/L (98-10 7) 11/17/22 07:35 Carbon Dioxide 23 mmol/L (22-29) 11/17/22 07:35 Anion Gap 17.2 (5-19) 11/17/22 07:35 BUN 11 mg/dL (6-20) 11/17/22 07:35 Creatinine 0.9 mg/dL (0.7-1. 2) 11/17/22 07:35 GFR Calculation 98.4 mL/min (90-1 30) 11/17/22 07:35 Glucose 115 mg/dL (65-115 ) 11/17/22 07:35 Calculated Osmolal ity 282 mOsm/kg (285- 295) L 11/17/22 07:35 Calcium 9.8 mg/dL (8.5-10 .5) 11/17/22 07:35 Total Bilirubin 0.4 mg/dL (0.15-1 .2) 11/17/22 07:35 AST 30 U/L (0-40) 11/17/22 07:35 ALT 75 U/L (0-41) H 11/17/22 07:35 Alkaline Phosphata se 42 U/L (40-130) 11/17/22 07:35 Total Protein 7.9 g/dL (6.6-8.7 ) 11/17/22 07:35 Albumin 4.8 g/dL (3.5-5.2 ) 11/17/22 07:35 Globulin 3.1 g/dL (1.3-4.6 ) 11/17/22 07:35 TSH 5.62 uIU/mL (0.27 -4.20) H 11/17/22 07:35 Salicylates < 0.3 mg/dL (3-10 ) L 11/17/22 07:35 Urine Opiates Scre en Negative ng/mL (N egative) 11/17/22 07:30 Acetaminophen < 5.0 ug/mL (10-3 0) L 11/17/22 07:35 Ur Barbiturates Sc reen Negative ng/mL (N egative) 11/17/22 07:30 Valproic Acid 35.1 ug/mL (50-10 0) L 11/17/22 07:35 Ur Phencyclidine S crn Negative ng/mL (N egative) 11/17/22 07:30 Ur Amphetamines Sc reen Negative ng/mL (N egative) 11/17/22 07:30 U Benzodiazepines Scrn Negative ng/mL (N egative) 11/17/22 07:30 Urine Cocaine Scre en Negative ng/mL (N egative) 11/17/22 07:30 U Marijuana (THC) Screen Positive ng/mL (N egative) H 11/17/22 07:30 Ethyl Alcohol < 10 mg/dL (0-10) 11/17/22 07:35 Vitals: Last Vital Signs Temp 97.5 F L 11/22/22 20:46 Pulse 112 H 11/23/22 06:00 Resp 18 11/23/22 06:00 BP 131/89 11/23/22 06:00 Pulse Ox 100 11/23/22 06:00 O2 Del Method Room Air 11/23/22 06:00 Discharge Plan Discharge Patient Disposition: Home Condition: Stable Prescriptions: New aripiprazole 20 mg tablet 20 mg PO DAILY 30 Days Qty: 30 1RF Continued acetaminophen [Tylenol Extra Strength] 500 mg tablet 1,000 mg PO Q6H PRN (Reason: Pain) celecoxib [Celebrex] 200 mg capsule 200 mg PO BID PRN (Reason: Pain) metoprolol succinate 25 mg tablet extended release 24 hr 25 mg PO DAILY@07 loperamide 2 mg capsule 2 mg PO DAILY PRN (Reason: Diarrhea) nicotine (polacrilex) 2 mg Gum 2 mg PO Q4H PRN (Reason: Smoking Cessation) hydroxyzine pamoate 25 mg capsule 25 mg PO BID PRN (Reason: Anxiety) SF 5000 Plus 1.1 % Cream See Rx Instructions .ROUTE .COMPLEX Rx Instructions: brush on teeth bid after use of regular toothpaste do not eat or drink for 30 minutes melatonin 3 mg tablet 6 mg PO BEDTIME@20 levothyroxine [Levoxyl] 100 mcg tablet 100 mcg PO DAILY@07 lisinopril 10 mg tablet 10 mg PO DAILY@07 divalproex 500 mg tablet extended release 24 hr 1,000 mg PO BEDTIME@20 bupropion HCl 300 mg tablet extended release 24 hr 300 mg PO DAILY@07 omeprazole 20 mg Capsule,Delayed Release(Dr/Ec) 20 mg PO DAILY@16 Changed quetiapine 300 mg tablet 300 mg PO BEDTIME@20 30 Days Qty: 30 1RF quetiapine 100 mg tablet 100 mg PO BID PRN (Reason: agitation/psychosis) 30 Days Qty: 60 1RF Discontinued ziprasidone HCl [Geodon] 40 mg capsule 40 mg PO BID@,16 Rx Instructions: Take one capsule by mouth every morning and evening; give with food (meal/snack of 350 calories) Discharge Orders: Discharge Order (Routine); Ordered 11/23/22 Ordered By: Trevor Figueroa Referrals: Patria Mckinney APRN [Nurse Practitioner] - 11/28/22 9:45 am (Follow up) Washington Eckert LPC [Therapist] - 11/30/22 11:45 am () Sp Flowers MD [Primary Care Provider] - Discharge Diet: Usual diet Discharge Activity: Resume usual activity Patient Instructions: Aripiprazole (By mouth), Schizoaffective Disorder (GEN), Help Prevent Suicide (GEN), Hallucinations (ED), Suicide Prevention (GEN), Opioid Safety Discharge Attestations NPU Time Spent in Discharge Care*: less than 30 min Specific Discharge Activities: Specific discharge activities: educating patient and educating and/or supporting family/caregiver Status at Discharge: Cognitive status at discharge: cognitively intact , Behavioral status at discharge: cooperative , Coding Level of Care Code Acute [facility] note Diagnoses Schizoaffective disorder, depressive type F25.1 Suicidal ideation R45.851 Auditory hallucinations R44.0
[2022-11-23 12:48] VITALS: BP 124/78; PULSE 86; RESP 17; TEMP 36.6; O2SAT 96
[2022-11-23 13:02] VITALS: BP 124/78; PULSE 86; RESP 17; TEMP 36.6; O2SAT 96
== END 2022-11-23 13:25 | disposition home or self-care (01) | DRG 885 ==
LOC: ER 08:58 → NP 10:35
PROVIDERS: Admitting Provider Psychiatry & Neurology Psychiatry; Emergency Provider Physician Assistant; PCP Family Medicine; Visit Provider Psychiatry & Neurology Psychiatry
DX: F25.1 Schizoaffective disorder, depressive type (principal); R45.851 Suicidal ideations; Z72.820 Sleep deprivation; F17.290 Nicotine dependence, other tobacco product, uncomplicated
CPT/HCPCS: 36415; 80053; 80164; 80306; 80307; 84443; 85025; 97150; 97165; 99238; 99285; Q0162

== ENCOUNTER → 2022-11-30 10:23 | Outpatient (BNVA) | payer OTHER, SELFPAY ==
[2022-08-29 07:52] VITALS: BP 135/91; BMI 33.9
== END ==
PROVIDERS: PCP Family Medicine; Visit Provider Nurse Practitioner Psychiatric/Mental Health
DX: Z79.899 Other long term (current) drug therapy (principal)
CPT/HCPCS: 80061; 83036

== ENCOUNTER 2023-03-18 15:36 | Inpatient (IN) | payer MEDICARE, MEDICAID, SELFPAY ==
[2023-02-16 13:35] VITALS: BP 138/86; BMI 35.8
[2023-03-18 15:40] VITALS: BP 124/84; PULSE 89; RESP 18; TEMP 36.4; O2SAT 96; BMI 34.0
--- NOTE | 2023-03-18 16:15 | W.ED.PSYCHS ---
HPI - Psych General: Chief Complaint: Psychiatric Symptoms Stated Complaint: SI Time Seen by Provider: 03/18/23 16:13 History of Present Illness: Patient presents to the ER with hearing voices that are bothering him again and telling him to kill himself. Patient gets monthly injections of Abilify and is also on bupropion, Depakote, hydroxyzine, Seroquel, patient states he needs to get help because the medicines are not working and he is afraid what that he will eventually do. Patient states he just got his IM dose of medicine on Monday. Patient denies any plans at this time. Review of Systems General: Reports: 10 or more systems reviewed and unremarkable except in HPI and below PFSH ED PFSH: Medical History Depressive disorder Hallucination Psychiatric care Schizoaffective disorder, depressive type Family History Other Diabetes Hypertension Schizoaffective disorder, depressive type Social History Smoking and tobacco/nicotine status: former use of tobacco/nicotine Quit status (tobacco/nicotine): has quit using Year quit tobacco: 150 days? Second hand smoke exposure: Yes Alcohol intake: never Substance/Drug Use: never Adopted: No Caregiver/support person: Yes (sets up his medication) Lives independently: No (St[facility] Household members: other Details: Multiple other residents at the facility. Housing: Assisted Living Facility Marital status: Single Number of children: 0 Number of grandchildren: 0 Highest education level completed: High School Graduate service: No Current occupational status: disabled Current occupational exposures/hazards: No Pets and animals: Yes Pets & animals: cat(s) Leisure activites: exercise, music, games and other Leisure activities details: watch TV Sexually active: Yes How many partners: 1 Are you practicing safe sex: No Do you think of yourself as: Straight/Heterosexual Current gender identity: Male Paola/Nondenominational: Pentecostalism Special paola needs: No Agree to transfusion: Yes Physical Exam Const: COMMON NORMALS: no acute distress, average body habitus, patient oriented x3, no limitations, healthy appearing, alert and well nourished HENMT: COMMON NORMALS: normocephalic, atraumatic, hearing grossly normal bilaterally, external ears normal, Normal external nose present, moist oral mucous membranes and oropharynx normal HEAD & SCALP: normocephalic and atraumatic NOSE: Normal external nose present EXTERNAL EAR: Yes external ears normal Neck/C-Spine: COMMON NORMALS: full ROM, no lymphadenopathy, supple, no meningeal signs, no JVD and Thyroid normal THYROID: Thyroid normal Resp: COMMON NORMALS: normal respiratory effort, No retractions, No use of accessory muscles and clear to auscultation bilaterally AUSCULTATION: clear to auscultation bilaterally Cardio: COMMON NORMALS: no JVD, regular rate, regular rhythm, S1 normal heart sound present, S2 normal heart sound present, No gallops present (Cardio), No clicks present (Cardio), No murmurs present (Cardio) and No rub (Cardio) RATE: regular rate RHYTHM: regular rhythm HEART SOUNDS: S1 normal heart sound present and S2 normal heart sound present GI: COMMON NORMALS: Normal to inspection, nondistended, normoactive bowel sounds present, Soft to palpation, non-tender, No hepatosplenomegaly present and no masses PALPATION: Yes Soft to palpation and Yes No hepatosplenomegaly present Neuro: COMMON NORMALS: patient oriented x3 SENSORIUM/ORIENTATION: Yes alert MENINGEAL SIGNS: Yes no meningeal signs Course Vital Signs: Vital signs: Vital Signs Temperature 97.6 F 03/18/23 15:40 Pulse Rate 89 03/18/23 15:40 Respiratory Rate 18 03/18/23 15:40 Blood Pressure 124/84 03/18/23 15:40 Pulse Oximetry 96 03/18/23 15:40 Oxygen Delivery Me thod Room Air 03/18/23 15:40 MDM - Psych Medical Decision Making Patient is hearing voices are telling him to kill himself. Patient does not have a plan at this time. Patient be worked up in normal psychiatric fashion and anticipate admission to [facility]. discussed case with Dr. Griffin who agrees to inpatient mission for further evaluation and treatment. Differential Diagnosis Likely acute psychosis and suicidal ideation; Unlikely chronic schizophrenia, bipolar disorder, depression, drug-induced psychotic disorder or acute anxiety Medical Records I reviewed the patient's medical records. Lab Data I reviewed the patient's lab results. 03/18/23 16:27 03/18/23 16:27 Laboratory Results WBC 6.41 10^3/uL (3.29-11.43) 03/18/23 16: RBC 5.06 10^6/uL (3.85-5.65) 03/18/23 16: Hgb 15.70 g/dL (11.27-16.99) 03/18/23 16: Hct 46.7 % (37-53) 03/18/23 16: MCV 92.3 fl (82-101) 03/18/23 16: MCH 31.0 pg (27-33) 03/18/23 16: MCHC 33.6 g/dL (30-55) 03/18/23 16: RDW 12.6 % (12.1-15.1) 03/18/23 16: Plt Count 207 10^3/cmm (157-399) 03/18/23 16: MPV 9.9 fL (7.4-10.4) 03/18/23 16: Neut % (Auto) 51.5 % 03/18/23 16: Lymph % (Auto) 41.5 % 03/18/23 16: Waldo % (Auto) 4.8 % 03/18/23 16: Eos % (Auto) 1.6 % 03/18/23 16: Baso % (Auto) 0.3 % 03/18/23 16: Neut # (Auto) 3.30 10^3/uL (1.8-7.7) 03/18/23 16: Lymph # (Auto) 2.7 10^3/uL (0.8-4.8) 03/18/23 16: Waldo # (Auto) 0.3 10^3/uL (0.2-0.9) 03/18/23 16: Eos # (Auto) 0.1 10^3/uL (0.0-0.8) 03/18/23 16: Baso # (Auto) 0.0 10^3/uL (0.0-0.1) 03/18/23 16: Nucleated RBC % (auto) 0 % 03/18/23 16: Nucleated RBCs # 0.0 /100WBC 03/18/23 16: Sodium 135 mmol/L (136-145) L 03/18/23 16: Potassium 4.4 mmol/L (3.5-5.1) 03/18/23 16: Chloride 100 mmol/L (98-107) 03/18/23 16: Carbon Dioxide 23 mmol/L (22-29) 03/18/23 16: Anion Gap 16.4 (5-19) 03/18/23 16: BUN 14 mg/dL (6-20) 03/18/23 16: Creatinine 0.8 mg/dL (0.7-1.2) 03/18/23 16: GFR Calculation 112.8 mL/min (90-130) 03/18/23 16: Glucose 85 mg/dL (65-115) 03/18/23 16: Calculated Osmolality 280 mOsm/kg (285-295) L 03/18/23 16: Calcium 9.5 mg/dL (8.5-10.5) 03/18/23 16: Total Bilirubin 0.4 mg/dL (0.15-1.2) 03/18/23 16: AST 19 U/L (0-40) 03/18/23 16: ALT 40 U/L (0-41) 03/18/23 16: Alkaline Phosphatase 32 U/L (40-130) L 03/18/23 16: Total Protein 7.8 g/dL (6.6-8.7) 03/18/23 16: Albumin 4.7 g/dL (3.5-5.2) 03/18/23 16: Globulin 3.1 g/dL (1.3-4.6) 03/18/23 16: Urine Color Yellow (Yellow) 03/18/23 16: Urine Appearance Clear (CLEAR) 03/18/23 16: Urine pH 7 (5-7) 03/18/23 16: Ur Specific [place] 1.000 (1.005-1.030) L 03/18/23 16: Urine Protein Neg (Negative) 03/18/23 16: Urine Glucose (UA) Norm (Normal) 03/18/23 16: Urine Ketones Negative (Negative) 03/18/23 16: Urine Blood Neg (Negative) 03/18/23 16:25 Urine Nitrate Negative (Negative) 03/18/23 16:25 Urine Bilirubin Neg (Negative) 03/18/23 16:25 Urine Urobilinogen Norm mg/dL (Negative) 03/18/23 16:25 Ur Leukocyte Esterase Negative (Negative) 03/18/23 16:25 Salicylates 1.2 mg/dL (3-10) L 03/18/23 16:27 Urine Opiates Screen Negative ng/mL (Negative) 03/18/23 16:25 Acetaminophen < 5.0 ug/mL (10-30) L 03/18/23 16:27 Ur Barbiturates Screen Negative ng/mL (Negative) 03/18/23 16:25 Ur Phencyclidine Scrn Negative ng/mL (Negative) 03/18/23 16:25 Ur Amphetamines Screen Negative ng/mL (Negative) 03/18/23 16:25 U Benzodiazepines Scrn Negative ng/mL (Negative) 03/18/23 16:25 Urine Cocaine Screen Negative ng/mL (Negative) 03/18/23 16:25 U Marijuana (THC) Screen Positive ng/mL (Negative) H 03/18/23 16:25 Ethyl Alcohol < 10 mg/dL (0-10) 03/18/23 16:27 No radiology studies performed this visit Discharge Plan Discharge Patient Disposition: Admitted As Inpatient Clinical Impression: Acute psychosis, Suicidal ideation Condition: Stable Coding Level of Care Code ED Fruit Receiver for Keny Ying
[2023-03-18 16:50] LABS: Add Urine Microscopic? NO; Charge for UA Resulting for Rev
[2023-03-18 16:51] LABS: Basophils % 0.3 %; Eosinophils # 0.1 10^3/uL (0.0-0.8); Eosinophils % 1.6 %; Hematocrit 46.7 % (37-53); Lymphocytes # 2.7 10^3/uL (0.8-4.8); Lymphocytes % 41.5 %; Mean Corpuscular HGB Conc 33.6 g/dL (30-55); Mean Corpuscular Volume 92.3 fl (82-101); Mean Platelet Volume 9.9 fL (7.4-10.4); Monocytes # 0.3 10^3/uL (0.2-0.9); Monocytes % 4.8 %; Neutrophils % 51.5 %; Nucleated Red Blood Cells % 0 %; Platelet Count 207 10^3/cmm (157-399); Red Blood Count 5.06 10^6/uL (3.85-5.65); Red Cell Distribution Width 12.6 % (12.1-15.1); White Blood Count 6.41 10^3/uL (3.29-11.43)
[2023-03-18 16:59] LABS: Alanine Aminotransferase 40 U/L (0-41); Albumin Level 4.7 g/dL (3.5-5.2); Alkaline Phosphatase 32 U/L (40-130); Anion Gap 16.4 (5-19); Aspartate Amino Transferase 19 U/L (0-40); Blood Urea Nitrogen 14 mg/dL (6-20); Calcium 9.5 mg/dL (8.5-10.5); Carbon Dioxide 23 mmol/L (22-29); Chloride 100 mmol/L (98-107); Globulin 3.1 g/dL (1.3-4.6); Glomerular Filtration Rate 112.8 mL/min (90-130); Glucose 85 mg/dL (65-115); Osmolality Calculated 280 mOsm/kg (285-295); Potassium 4.4 mmol/L (3.5-5.1); Salicylate 1.2 mg/dL (3-10); Sodium 135 mmol/L (136-145); Total Bilirubin 0.4 mg/dL (0.15-1.2); Total Protein 7.8 g/dL (6.6-8.7)
[2023-03-18 17:00] LABS: Acetaminophen < 5.0 ug/mL (10-30); Alcohol Level < 10 mg/dL (0-10)
[2023-03-18 17:01] LABS: Bilirubin Urine Neg (Negative); Blood Urine Neg (Negative); Glucose Urine UA Norm (Normal); Ketones Urine Negative (Negative); Leukocyte Esterase Urine Negative (Negative); Nitrate Urine Negative (Negative); Protein Urine Neg (Negative); Urine Appearance Clear (CLEAR); Urine Color Yellow (Yellow); Urobilinogen Urine Norm (Negative); pH Urine 7 (5-7)
[2023-03-18 17:10] LABS: Amphetamines Screen Urine Negative (Negative); Barbiturates Screen Urine Negative (Negative); Benzodiazepines Screen Urine Negative (Negative); Cocaine Screen Urine Negative (Negative); Opiate Screen Urine Negative (Negative); PCP Screen Urine Negative (Negative); THC Screen Urine Positive (Negative)
[2023-03-18 18:12] VITALS: BP 156/99; PULSE 82; RESP 16; TEMP 36.6; O2SAT 99
[2023-03-18 18:20] VITALS: BP 124/79; PULSE 83; RESP 16; TEMP 36.6; O2SAT 98
--- NOTE | 2023-03-18 19:01 | PC.NURSE ---
PT CAME TO THE ED BECAUSE HE HAS BEEN HEARING VOICES FOR THE LAST 3-4 DAYS. PT STATES THAT THESE VOICES ARE TELLING HIM TO HARM HIMSELF. PT STATED THAT HE LIVES AT [facility] AND TAKES A LONG ACTING INJECTABLE AND BELIEVES IT IS ABILIFY. PT STATES THAT HE RECEIVED THIS INJECTION ON 03/15/23.
[2023-03-18] MEDS: hyDROXYzine 25 mg Capsule 50 MG PO (19:35)
[2023-03-18 22:00] VITALS: BP 118/81; PULSE 100; RESP 18; TEMP 36.7; O2SAT 96
[2023-03-19] MEDS: quetiapine 100 mg Tablet PO (05:16)
--- NOTE | 2023-03-19 05:18 | PC.NURSE ---
Pt came to nurses station asking for medication for the voices , PRN seroquel administered per orders.
[2023-03-19 06:00] VITALS: BP 126/84; PULSE 84; RESP 18; TEMP 36.3; O2SAT 98
[2023-03-19] MEDS: levothyroxine 100 mcg Tablet PO (06:21)
[2023-03-19] MEDS: lisinopril 10 mg Tablet PO (06:22)
[2023-03-19] MEDS: metoprolol succinate ER (24 HR) 25 mg Tablet PO (06:22)
[2023-03-19] MEDS: pantoprazole DR 40 mg Tablet PO (08:15)
[2023-03-19] MEDS: ibuprofen 800 mg tablet PO ×2 (08:15→17:11)
[2023-03-19] MEDS: flu vacc pf 2023-24 (6 mos+) 60 MCG IM (08:15)
--- NOTE | 2023-03-19 09:45 | PC.NURSE ---
PT CURRENTLY DENIES SI/HI/VH. PT ENDORSES AH STATING THAT THE VOICES ARE STILL TELLING ME TO HURT MYSELF BUT I DO NOT WANT TO. PT WAS WILLING AND COOPERATIVE WITH ASSESSMENT. PT CURRENT NEEDS ARE MET AT THIS TIME.
[2023-03-19] MEDS: hyDROXYzine 25 mg Capsule 50 MG PO (11:19)
[2023-03-19 14:00] VITALS: BP 122/80; PULSE 95; RESP 16; TEMP 37.1; O2SAT 98
--- NOTE | 2023-03-19 14:18 | P.NPUHP_ITS ---
Providers/Chief Complaint Admitting Physician: Trevor Figueroa MD Primary Care Provider: Sp Flowers MD Chief Complaint: SI HPI NPU History of Present Illness Real Black is a 32 year old male most recently hospitalized in November 2022 with a history of schizoaffective disorder who presented to the emergency department with complaints of auditory hallucinations telling him to harm himself. Patient was admitted to the neuropsychiatric unit for further diagnosis and treatment. Patient reported that he has been compliant with his medications and reports that he has recently received his monthly injection of Abilify approximately 3 days ago and states that usually his mood and his voices become quieter but reports that at this time it is not been the case. He reports that he has been hearing voices telling him to harm himself. He does e ndorse some depressed mood. He reports some difficulties with concentration. He had stated that he is concerned that if his medications are not adjusted that he may do something to hurt himself. Inpatient psychiatric history: Multiple inpatient hospitalizations Outpatient psychiatric history: He reports receiving CPRS services at [facility] on an outpatient basis with weekly visits Current medications: Abilify Maintena 400 mg IM every 28 days, Wellbutrin SR 200 mg daily, Depakote 1000 mg at night, hydroxyzine 25 twice a day as needed, levothyroxine 100 mcg daily, lisinopril 10 mg daily, metoprolol 25 mg daily, omeprazole 25 mg daily, Seroquel 100 mg as needed at night Allergies: Latuda, olanzapine, Haldol, Chlorpromazine, Social History: He currently lives in a skilled nursing in [facility]. See previous social history below. He reports is unchanged from most recent hospitalization. NPU Discharge Summary 11/23/22 Discharge Diagnosis (1) Schizoaffective disorder, depressive type: ?Status:?Chronic (2) Suicidal ideation: ?Status:?Resolved (3) Auditory hallucinations: ?Status:?Chronic SI? Brief History: HPI NPU History of Present Illness Real Black is a 32 year old male who presented to the ED with the adalid joe report: Chief Complaint: Psychiatric Symptoms Stated Complaint: SI Time Seen by Provider: 11/17/22 07:11 Source: patient Mode of arrival: ambulatory Limitations: no limitations History of Present Illness:?? Patient is a 32-year-old male with a history of schizoaffective disorder here for complaints of auditory hallucinations stating that the voices are telling him to harm himself.? He states they are not telling him any specific ways to harm himself. He does state he feels like he might act on the voices.? He reports a previous suicide attempt years ago.? He states he does have a psychiatrist at [facility].? Patient is requesting hospitalization.? He denies homi cidal ideations.? No visual hallucinations.? Denies drug or alcohol use.? Patient is a resident at [facility]. ? MD complaint: suicidal ideation and other (auditory hallucinations) Onset (ago): day(s) Duration: constant History of same: Yes Relieving factors: none Exacerbating factors: none Associated psychiatric symptoms: depression, suicidal ideation and auditory hallucinations Associated symptoms: Reports auditory hallucinations, depression and suicidal ideation; Deny visual hallucinations or homicidal ideation Treatments prior to arrival: none If self harm: admits thoughts of self harm He was admitted to the neuropsychiatric unit for definitive treatment of those issues.? He presents today reporting he has been doing well in general in the past 13 months with only intermittent AH occasionally with good medication adherence overall. He reports that he had been doing well until about 3 weeks ago when for some reason he cannot explain he began being more drawn to playing his video games at night and staying up.? As he was having 3 and 4-day stretches where he was having little to no sleep his hallucinations returned and they started getting worse eventually leading to him having command auditory hallucinations to harm himself but not specifically to kill himself per se.? He reports that as a got out of control he knew he needed to come in and may be get his sleep back under control and consider changes in his medication.? We discussed the risks, benefits and alternatives of him starting Abilify as we had attempted this in the past and he understood and agreed to proceed as is documented in this note.? This is in part due to the fact that increases in his Geodon have proved challenging such that he has been somewhat stuck at this 40 mg p.o. twice daily dosing.? Also he had been on several medications back then and polypharmacy was a concern but he has been able to decrease some of those medications.? We reviewed his records and identified his 10/03/2022 outpatient evaluation from [facility] as being a comprehensive exploration of his history and excerpt is included below. Per his 10/03/2022 [facility] inpatient psychiatric discharge summary: Discharge Diagnosis (1) Suicidal ideation: ? ? ? Status: Acute (2) Auditory hallucinations: ? ? ? Status: Acute (3) Schizoaffective disorder, depressive type: ? ? ? Status: Chronic Reason for Visit Reason for Visit:?? SI? Brief History: Real Black is a 31 year old male admitted to the neuropsychiatry unit for the following report. Mr. Black is a 31-year-old male with history of schizoaffective disorder presenting to the emergency department due to suicidal ideation and hallucinations.? He reports history of similar however had been doing well.? Symptoms started yesterday morning without known specific provoking factor.? He reports compliance with medication regimen and denies other associated significant changes in related depressive symptoms.? Intensity of hallucinations have been worsening.? They tell him to hurt himself.? He has had increased thoughts of hurting himself because of these voices.? Otherwise denies medical complaints.? No other specific changes in health, exacerbating, or alleviating factors identified. He was admitted to the neuropsychiatry unit for definitive treatment of these issues.? He is well known to this unit with multiple admissions.? The last admission was in June and at that time we changed him from Geodon to Invega and increased his Wellbutrin to 300 mg daily.? He feels like those changes have been working well.? He denies anything that could precipitate a worsening of his auditory hallucinations.? He says he occasionally has flareups of his hallucinations but this is much worse than normal.? He has been generally doing well since he left the hospital in June.? He reported to his therapist and psychiatric nurse practitioner that he had been doing well in recent appointments.? He denies any drug use.? He denies any stress [place].? He denies any family stress.? He says that he has been compliant with medications.? His mood has been fairly good.? He requested that his Invega be increased.? I agreed to do that for a couple of days and then reevaluate. Hospital Course He slowly acclimated to the individual, group and milieu therapies provided.? He was continued on his medications except for Invega was gradually increased to 9 mg in the morning and 6 mg at bedtime.? He had urinary incontinence on 6 mg twice a day and Cogentin was added.? He had a similar problem with Geodon.? We talked about trying a different antipsychotic but he felt that Invega was good f or him and wanted to try that with the Cogentin and increase the dose.? He tolerated these doses and showed steady improvement during his stay. ? He was able to contract for safety outside hospital prior to discharge.? During the hospitalization, patient had routine laboratory studies which were within normal limits except for few outliers.? Additionally there was a general medical evaluation which was also within normal limits and revealed no new acute processes. Discharge Summary: At the time of discharge, lethality was denied and psychosis was resolving.? Mood and anxiety were well managed.? Patient endorsed a plan to follow-up with the aftercare recommendations of the treatment team.? Patient was evaluated and deemed to be absent credible lethality, and had achieved the maximum benefit from an inpatient hospitalization, so was discharged. Per his 07/07/2020 [facility] outpatient psychiatric evaluation: [facility] History and Physical Time In: 13:56 Time Out: 14:57 Chief Complaint: here for therapy and medications History of Present Illness: Information retrieved and edited from [facility] Comp. Clinical Assessment completed on: 05/26/20: anxiety and nervousness, wants therapy and medication management; moved here from [place]. Currently living at [facility], since 04/29/20. Before this arrangement, he was in [place],? living at an physician office assistant living facility. He has moved several times back and forth from [place] to [place]. He is hoping his father will retire and his parents will move to [place]; they have a farm in [place]. Real had services with [facility] in 2016. Says he was inpatient due to his voices getting bad and he was suicidal. He says his current diagnosis are bipolar and now he is diagnosed with schizoaffective disorder; he is currently on medications. He is not aware if anyone in his family has bipolar or schizophrenia. He has had suicidal thoughts, chronic in nature. He tried to end his life in 2012 by hanging, reports the rope broke; previously held scissors to his throat; a cousin called him and that is what stopped him from doing it. He lived at [facility](assisted living facility in [place]) for four years, then moved to his Mom's friend's home in [place], [place]. Says he was referred to [facility] by friends of the [place]. Reported symptoms difficulty concentrating, thoughts hard to dismiss, annoyed and irritable, nervous feeling, worries and fears. Reported symptoms difficulty concentrating, thoughts hard to dismiss, annoyed and irritable, nervous feeling, worries and fears.? Denied fatigue, pains, headache, or digestive problems. Current habits: Drinks 3 large glasses of tea per day; sometimes drinks 2 cups of coffee in the morning and 3 sodas during the day.? Currently reports he sleeps from about midnight or 1 AM up until about 8 or 9 AM; usually obtains about 5 to 6 hours of rest during that time.? He rarely takes a nap in the day.? Sometimes skips breakfast, and usually eats lunch or dinner.? He tries to walk 2 or 3 times per week (up to 1 and half to 2 miles at a time) for physical exercise. History Past Psychiatric History:? Information retrieved and edited from [facility] Comp. Clinical Assessment completed on: 05/26/20:? Real had services with [facility] in 2016; dx were: F25.1 Schizoaffective DO, Depressed Type; F15.20 Methamphetamine Use Disorder; he [facility]; refer to chart. Most recent inpatient hospitalization was from? 06/12/20 to 06/15/20;included suicidal ideation; depressive disorder; and schizoaffective disorder. Real says hospitalization was due to his voices getting bad and he felt suicidal.? History of chronic suicidal thoughts with a history of suicide gesture/attempt including: He tried to end his life in 2012 by hanging; the rope broke, he had scissors held to his throat; says a cousin called him and that is what stopped him from doing it. Real says every now and then his voices act up. He says he has one unrecognized male voice which tells him to do bad stuff to himself, but not to anyone else.? Usually has increased depression and anxiety in the afternoon, usually from 2 PM to 5 PM.? Reports he can a good day, and then out of the blue he doesn?t feel like doing anything; he feels worthless and down in the dumps for no reason; he says every now and then something may trigger it. He has anger problems and when he gets mad at himself, he has hurt himself in the past; hx of cutting; last time he cut himself was in 2018. He used a knife; was cutting his wrist, but hasn't cut deeply enough to be in the hospital. He expressed inability to concentrate, difficulty completing tasks, delayed responses during conversations.? Says he had ADHD as a child; reported that he attended special classes, and took Concerta, Ritalin, and Adderall.? Says the medication was beneficial at school, but usually wore off by the time he got home.? Says he is able to control ADHD symptoms as an adult. Family History: Information retrieved and edited from [facility] Comp. Clinical Assessment completed on: 05/26/20 Family Psychiatric History: Anxiety and Depression History of Suicide in the Family: No Family history of substance abuse: Alcohol (father) Past Medical History: Information retrieved and edited from [facility] Comp. Clinical Assessment completed on: 05/26/20 Primary Care Provider: Yes (Dr. Flowers); last physical exam: Within past year (05.07.20) Client's Medical History: No major medical illness Surgical Procedure: Tonsillectomy; history of foot fracture Substance Use History: Information retrieved and edited from [facility] Comp. Clinical Assessment completed on: 05/26/20 Client history of substance abuse: Alcohol (yes) Age of onset (years): 13 Pattern of use: denied current use and has not used in 3 years; Cannabis (yes) Age of onset (years): 19 Pattern of use: denied current use; has not used in 3 years ; Amphetamine (yes) Age of onset (years): 21 Pattern of use: (previous snorting and smoking it );denied current use; has not used in 3 years; Nicotine (yes) Age of onset (years): 19 Pattern of use: current use: 1 ppd Client?s drug and/or alcohol use in the last 30 days: No Social History: Information retrieved and edited from [facility] Comp. Clinical Assessment completed on: 05/26/20 Childhood history: Real was born in [place]; at age [age], his parents moved? near [place], [place]. When he was in 5th grade, he moved to [place]. He graduated high school, then moved to [place], [place]. He says he has a good childhood; his parents were in the home growing up and are still together. He is an only child. He is single; has no children. 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 History: Client denies service Abilities/Interests: tries to stay busy, likes to help others; he loves being outside; listens to music Legal Status/History: Current legal issues denied; denies previous arrests incarceration. Spiritual Pursuits: Other (he prays) Highest Education Level Reached: college (12th grade; reports he had ADHD in school and was on meds.) Academic Performance: Performance at grade level Hospital Course Hospital Course During the hospitalization, the patient had routine laboratory studies which were within normal limits except for a few outliers.? Additionally, there was a general medical evaluation which was also within normal limits and revealed no new acute processes.? At the time of discharge, lethality was denied and psychosis was resolving.? Mood and anxiety were well managed.? The patient endorsed a plan to avoid all drugs of abuse and follow up with the aftercare recommendations of the treatment team.? The patient was evaluated and deemed to be absent credible lethality and had achieved the maximum benefit from an inpatient hospitalization, and so was discharged.? The patient did not appear to show benefit from the additional of Geodon and this was tapered and discontinued.? Abilify was added and titrated up to a dose of 20 mg with significant improvement noted in both the patient's mood and in the reduction and intensity of his hallucinations.? He remained on Seroquel as previously prescribed along with Depakote throughout his hospital stay. Meds NPU Home Medications Medication Instructions Recorded Confirmed Last Taken Type acetaminophen 500 mg tablet 1,000 mg PO Q6H PRN Pain 08/03/20 03/18/23 11/04/20 09:00 History (Tylenol Extra Strength) metoprolol succinate 25 mg 25 mg PO DAILY@12/15/20 03/18/23 03/18/23 History tablet,extended release 24 hr omeprazole 20 mg capsule,delayed 20 mg PO DAILY@16 09/28/21 03/18/23 03/18/23 History release levothyroxine 100 mcg tablet 100 mcg PO DAILY@11/17/22 03/18/23 03/18/23 History (Levoxyl) lisinopril 10 mg tablet 10 mg PO DAILY@07 11/17/22 03/18/23 03/18/23 History loperamide 2 mg capsule 2 mg PO DAILY PRN Diarrhea 11/17/22 03/18/23 Unknown History aripiprazole 400 mg intramuscular 400 mg IM Q28D #1 ea 01/23/23 03/18/23 03/08/23 Rx suspension,extended release (Francisco J Arshada) hydroxyzine pamoate 25 mg capsule 25 mg PO BID PRN Anxiety #60 caps 01/23/23 03/18/23 Unknown Rx bupropion HCl 200 mg tablet,12 hr 200 mg PO QAM #30 tabs 02/23/23 03/18/23 03/18/23 Rx sustained-release divalproex 500 mg tablet,extended 1,000 mg PO BEDTIME@20 #60 tabs 02/23/23 03/18/23 03/17/23 Rx release 24 hr ibuprofen 800 mg tablet 800 mg PO TID PRN pain 02/23/23 03/18/23 Unknown History melatonin 3 mg tablet See Rx Instructions PO BEDTIME@20 02/23/23 03/18/23 Unknown Rx PRN sleep #60 tabs quetiapine 100 mg tablet 100 mg PO BID PRN 02/23/23 03/18/23 Unknown Rx agitation/psychosis 30 days #60 tabs Allergies Allergy/AdvReac Type Severity Reaction Status Date / Time chlorpromazine Allergy Severe ALGY-Anaphy Verified 02/23/23 14:40 laxis haloperidol [From Haldol] Allergy Severe ALGY-Swell Verified 02/23/23 14:40 Lip/Tongue/Throat lurasidone [From Latuda] Allergy Severe ALGY-Swell Verified 02/23/23 14:40 Lip/Tongue/Throat olanzapine [From Zyprexa] Allergy Severe ALGY-Swell Verified 02/23/23 14:40 Lip/Tongue/Throat PFSH NPU PFSH: Medical History Depressive disorder Hallucination Psychiatric care Schizoaffective disorder, depressive type Family History Other Diabetes Hypertension Schizoaffective disorder, depressive type Social History Smoking and tobacco/nicotine status: former use of tobacco/nicotine Quit status (tobacco/nicotine): has quit using Year quit tobacco: 150 days? Second hand smoke exposure: Yes Alcohol intake: never Substance/Drug Use: never Adopted: No Caregiver/support person: Yes (sets up his medication) Lives independently: No (Staying at [facility] Household members: other Details: Multiple other residents at the facility. Housing: Assisted Living Facility Marital status: Single Number of children: 0 Number of grandchildren: 0 Highest education level completed: High School Graduate service: No Current occupational status: disabled Current occupational exposures/hazards: No Pets and animals: Yes Pets & animals: cat(s) Leisure activites: exercise, music, games and other Leisure activities details: watch TV Sexually active: Yes How many partners: 1 Are you practicing safe sex: No Do you think of yourself as: Straight/Heterosexual Current gender identity: Male Paola/Anabaptism: Mormon Special paola needs: No Agree to transfusion: Yes Mental Status Exam MSE Comments: This is an obese white male who presents in hospital scrubs with poor grooming and fleeting eye contact. No abnormal movements other than mild psychomotor retardation. He was cooperative with exam and in mild distress. Speech was decreased rate and normal in prosody and volume. Mood described as depressed, affect subdued. Thought process mostly organized, thought content: Patient endorsed having no suicidal ideation or homicidal ideation, there are no delusions reported or noted, he endorsed command auditory hallucinations telling him to harm himself. He denied visual hallucinations. Attention and concentration appeared intact and memory appeared reliable but never formally tested. He is alert and oriented x3. Insight and judgment appear fair, impulse control appears limited. Vitals/I&O/Wt Last Vital Signs Temp 97.4 F L 03/19/23 06:00 Pulse 84 03/19/23 06:00 Resp 18 03/19/23 06:00 BP 126/84 03/19/23 06:00 Pulse Ox 98 03/19/23 06:00 O2 Del Method Room Air 03/19/23 06:00 Weight last 48 hrs Weight 104.326 kg Weight 104.326 kg Data NPU 03/18/23 16:27 03/18/23 16:27 A&P Assessment and plan (1) Schizoaffective disorder, depressive type: (2) Suicidal ideation: (3) Auditory hallucinations: Plan This is a 32-year-old white male with a long history of psychosis and mental health challenges who presents with a significant increase in auditory hallucinations despite compliance with Abilify Maintena. Plan: 1. ADD oral abilify and titrate up to 15mg orally while remaining on IM Abilify Maintena to target psychosis. 2. Continue every 15 minute checks for safety. 3. Encourage individual, group and milieu therapies. 4. Encourage sober living treatment after discharge at the highest level of care to which he is willing to commit. 5. Will restart medications other than seroquel. Involuntary Hold Information 96 Hour Hold: 96 Hour Involuntary Admission: No Attestations NPU Medical Necessity Statement*: Inpatient hospitalization is medically necessary and the clinically appropriate intervention at this time. We will initiate medications and make changes as indicated. He will be in the hospital for over 2 midnights. His likely length of stay 4-6 days. Coding Level of Care Code Acute Code for [facility] Diagnoses Schizoaffective disorder, depressive type F25.1 Suicidal ideation R45.851 Auditory hallucinations R44.0
[2023-03-19] MEDS: ARIPiprazole 10 mg Tablet 5 MG PO (14:53)
[2023-03-19] MEDS: divalproex ER 500 mg Tablet (24H) 1000 MG PO (20:34)
[2023-03-19 22:00] VITALS: BP 150/89; PULSE 93; RESP 18; TEMP 36.3; O2SAT 97
[2023-03-20 06:00] VITALS: BP 129/92; PULSE 97; RESP 18; O2SAT 96
[2023-03-20] MEDS: lisinopril 10 mg Tablet PO (06:09)
[2023-03-20] MEDS: metoprolol succinate ER (24 HR) 25 mg Tablet PO (06:09)
[2023-03-20] MEDS: levothyroxine 100 mcg Tablet PO (06:09)
[2023-03-20] MEDS: buPROPion SR (12 HR) 100 mg Tablet 200 MG PO (06:10)
[2023-03-20] MEDS: ibuprofen 800 mg tablet PO (06:29)
[2023-03-20] MEDS: pantoprazole DR 40 mg Tablet PO (08:04)
[2023-03-20] MEDS: ARIPiprazole 10 mg Tablet 5 MG PO ×2 (08:04→18:43)
[2023-03-20] MEDS: hyDROXYzine 25 mg Capsule 50 MG PO (08:04)
--- NOTE | 2023-03-20 08:57 | PC.NURSE ---
PT RESTING IN BED AROUSES TO VOICE. DENIES PAIN, DENIES SI/HI AND AVH AT THIS TIME. PT STATES HE FELT BETTER AFTER TAKING ONE ABILIFY 5 MG TAB YESTERDAY. PT STATES HE IS NO LONGER HEARING VOICES. RATES DEPRESSION 08/01 AND ANXIETY 10/01. VISTARIL 50 MG GIVEN ORDERED FOR ANXIETY. PT NOTED TO PACE THE HALLS WHILE WAITING FOR BREAKFAST. ALL QUESTIONS ANSWERED AND SUPPORT WAS VOICED.
[2023-03-20 14:00] VITALS: BP 139/83; PULSE 83; RESP 17; TEMP 36.6; O2SAT 97
--- NOTE | 2023-03-20 18:15 | W.PM.NPUPNS ---
Subjective NPU Subjective: Real is a 32-year-old white male with schizoaffective disorder admitted with command auditory hallucinations. patient reported no side effects from the Abilify oral. He had reported some reduction in his hallucinations at this time. He reported that he was feeling more optimistic about taking the oral Abilify with his monthly intramuscular Abilify. Patient continued to require significant redirection and continued to show evidence of lack of self-care as he did not appear to attend to his activities of daily living without significant prompting. He did not appear to have showered for several days. He reported having periods of lack of motivation in the past. He had reported having previous side effects from various antipsychotics in the past. Mental Status Exam MSE Comments: This is an obese white male who presents in hospital scrubs with poor grooming and fleeting eye contact. He was malodorous with limited hygiene. No abnormal movements other than mild to moderate psychomotor retardation. He was cooperative with exam and in distress. Speech was diminished in rate and normal in prosody and volume. Mood described as better. His affect remained blunted. Thought process mostly organized, thought content: Patient endorsed having no suicidal ideation or homicidal ideation, there are no delusions reported or noted, he endorsed command auditory hallucinations telling him to harm himself. He denied visual hallucinations. Attention and concentration appeared intact and memory appeared reliable but never formally tested. He is alert and oriented x3. Insight and judgment appear fair, impulse control appears limited. Vitals/I&O/Wt Last Vital Signs Temp 97.9 F 03/20/23 14:00 Pulse 83 03/20/23 14:00 Resp 17 03/20/23 14:00 BP 139/83 03/20/23 14:00 Pulse Ox 97 03/20/23 14:00 O2 Del Method Room Air 03/19/23 14:00 Weight last 48 hrs Weight 104.326 kg Data NPU 03/18/23 16:27 03/18/23 16:27 A&P Assessment and plan (1) Schizoaffective disorder, depressive type: (2) Suicidal ideation: (3) Auditory hallucinations: Plan This is a 32-year-old white male with a long history of psychosis and mental health challenges who presents with a significant increase in auditory hallucinations despite compliance with Abilify Maintena. Plan: 1. Increase oral abilify to 10mg daily in addition to Abilify maintena prescribed monthly. 2. Continue every 15 minute checks for safety. 3. Encourage individual, group and milieu therapies. 4. Encourage sober living treatment after discharge at the highest level of care to which he is willing to commit. 5. Continue Wellbutrin and depakote as prescribed. Involuntary Hold Information 96 Hour Hold: 96 Hour Involuntary Admission: No Attestations NPU Medical Necessity Statement*: Inpatient hospitalization is medically necessary and the clinically appropriate intervention at this time. We will initiate medications and make changes as indicated. His likely length of stay 4-6 days. Coding Level of Care Code Acute Code for [facility] Fwd Diagnoses Schizoaffective disorder, depressive type F25.1 Suicidal ideation R45.851 Auditory hallucinations R44.0
[2023-03-20 20:38] VITALS: BP 135/93; PULSE 85; RESP 18; TEMP 36.8; O2SAT 96
[2023-03-20] MEDS: trazodone 50 mg Tablet PO ×2 (20:57→22:49)
[2023-03-20] MEDS: divalproex ER 500 mg Tablet (24H) 1000 MG PO (20:57)
[2023-03-21] MEDS: metoprolol succinate ER (24 HR) 25 mg Tablet PO (07:43)
[2023-03-21] MEDS: pantoprazole DR 40 mg Tablet PO (07:43)
[2023-03-21] MEDS: ARIPiprazole 10 mg Tablet PO (07:43)
[2023-03-21] MEDS: buPROPion SR (12 HR) 100 mg Tablet 200 MG PO (07:43)
[2023-03-21] MEDS: lisinopril 10 mg Tablet PO (07:43)
[2023-03-21] MEDS: hyDROXYzine 25 mg Capsule 50 MG PO ×2 (08:29→15:39)
--- NOTE | 2023-03-21 08:57 | PC.NURSE ---
Patient denies vh and si/hi. He does endorse auditory hallucinations telling him to kill himself. However, he does say he does not want to kill himself and wouldn't act on it. This RN requested he let staff know if his voices did not go away and he agreed.
[2023-03-21] MEDS: loperamide 2 mg Capsule PO (12:05)
[2023-03-21 14:00] VITALS: BP 138/75; PULSE 100; RESP 18; TEMP 36.8; O2SAT 96
[2023-03-21] MEDS: divalproex ER 500 mg Tablet (24H) 1000 MG PO (20:22)
[2023-03-21] MEDS: trazodone 50 mg Tablet PO (20:22)
--- NOTE | 2023-03-21 20:22 | P.NPUPN_ITS ---
Subjective NPU 2 Subjective: Real is a 32-year-old white male with schizoaffective disorder admitted with command auditory hallucinations. The patient reported no side effects from the Abilify oral. He continues spend most of the day pacing around his room. He reported no side effects from his medications. He had reported that the voices continued but appeared to be fainter. He had still reported having command auditory hallucinations though and stated that he wanted to get better at this time. Patient had reported that his depression had been under better control. He continued to require prompting for continued completion of activities of daily living including showering. Mental Status Exam 2 MSE Comments: This is an obese white male who presents in hospital scrubs with minimally improved grooming and fleeting eye contact. No abnormal movements other than mild psychomotor retardation. He was cooperative with exam and in distress. Speech was diminished in rate and normal in prosody and volume with no overt increase in speech latency. Mood described as better. His affect remained blunted. Thought process was mostly organized, thought content: Patient endorsed having no suicidal ideation or homicidal ideation, there are no delusions reported or noted, he endorsed command auditory hallucinations telling him to harm himself. He denied visual hallucinations. Attention and concentration appeared intact and memory appeared reliable but never formally tested. He is alert and oriented x3. Insight and judgment appear fair, impulse control appears limited. Vitals/I&O/Wt Last Vital Signs Temp 98.2 F 03/21/23 14:00 Pulse 100 03/21/23 14:00 Resp 18 03/21/23 14:00 BP 138/75 03/21/23 14:00 Pulse Ox 96 03/21/23 14:00 O2 Del Method Room Air 03/21/23 14:00 Data NPU 03/18/23 16:27 03/18/23 16:27 A&P Assessment and plan (1) Schizoaffective disorder, depressive type: (2) Suicidal ideation: (3) Auditory hallucinations: Plan This is a 32-year-old white male with a long history of psychosis and mental health challenges who presents with a significant increase in auditory hallucinations despite compliance with Abilify Maintena. Plan: 1. Increase oral abilify to 15mg daily in addition to Abilify maintena prescribed monthly. 2. Continue every 15 minute checks for safety. 3. Encourage individual, group and milieu therapies. 4. Encourage sober living treatment after discharge at the highest level of care to which he is willing to commit. 5. Continue Wellbutrin and depakote as prescribed. Involuntary Hold Information 2 96 Hour Hold: 96 Hour Involuntary Admission: No Attestations NPU 2 Medical Necessity Statement*: Inpatient hospitalization is medically necessary and the clinically appropriate intervention at this time. We will initiate medications and make changes as indicated. His likely length of stay 4-6 days. Coding Level of Care Code Acute Code for [facility] Diagnoses Schizoaffective disorder, depressive type F25.1 Suicidal ideation R45.851 Auditory hallucinations R44.0
[2023-03-21 20:38] VITALS: BP 125/77; PULSE 85; RESP 18; TEMP 36.4; O2SAT 97
[2023-03-21] MEDS: ARIPiprazole 10 mg Tablet 5 MG PO (20:53)
--- NOTE | 2023-03-21 20:59 | PC.NURSE ---
Patient behavior. States the voices in his head are making him fell suicidal. No plan. Patient is sitting by the desk as he states he cannot contract for safety. Dr. Figueroa here and aware. Orders to give 5 mg of Abilify. Patient given a stress ball and a notebook to read that helps improve your day.
[2023-03-21] MEDS: ziprasidone hcl 20 mg Capsule PO (21:50)
--- NOTE | 2023-03-22 00:22 | PC.NURSE ---
[employer] 2230 patient was resting. Asked if still SI and voices and he stated no. Continue to monitor. Now contracts for safety if they do.
--- NOTE | 2023-03-22 04:01 | PC.NURSE ---
Patient at nurses station asking for water. Stated the voices had stopped, he was no longer suicidal and felt much better.
[2023-03-22 06:00] VITALS: BP 124/86; PULSE 92; RESP 18; O2SAT 98
[2023-03-22] MEDS: levothyroxine 100 mcg Tablet PO (06:24)
[2023-03-22] MEDS: buPROPion SR (12 HR) 100 mg Tablet 200 MG PO (08:05)
[2023-03-22] MEDS: metoprolol succinate ER (24 HR) 25 mg Tablet PO (08:06)
[2023-03-22] MEDS: pantoprazole DR 40 mg Tablet PO (08:06)
[2023-03-22] MEDS: ARIPiprazole 10 mg Tablet 15 MG PO (08:06)
[2023-03-22] MEDS: lisinopril 10 mg Tablet PO (08:06)
[2023-03-22] MEDS: ibuprofen 800 mg tablet PO ×2 (08:18→18:15)
[2023-03-22] MEDS: hyDROXYzine 25 mg Capsule 50 MG PO ×2 (12:20→20:26)
[2023-03-22 13:49] VITALS: BP 117/76; PULSE 88; RESP 16; TEMP 36.6; O2SAT 95
--- NOTE | 2023-03-22 16:30 | W.PM.NPUPNS ---
Subjective NPU Subjective: Real is a 32-year-old white male with schizoaffective disorder admitted with command auditory hallucinations. The patient reported no side effects from the Abilify oral. Patient continued to report that he was distracted by his thoughts and had endorsed having some suicidal thoughts associated with the command auditory hallucinations. He had minimized this today on interview but continued to state that he felt better with the increase in oral Abilify. He had endorsed continued depression. He had stated low energy and low motivation. Patient did appear to have some difficulty with attending and completing activities of daily living including showering today. Mental Status Exam MSE Comments: This is an obese white male who presents in hospital scrubs with poor grooming and fleeting eye contact. No abnormal movements other than mild psychomotor retardation. He was cooperative with exam and in moderate distress as he paced the hallway throughtout the afternoon. Speech was diminished in rate and normal in prosody and volume with no overt increase in speech latency. Mood described as a little depressed. His affect remained blunted. Thought process was mostly organized, thought content: Patient endorsed having no suicidal ideation or homicidal ideation, there are no delusions reported or noted, he endorsed command auditory hallucinations telling him to harm himself. He denied visual hallucinations. Attention and concentration appeared intact and memory appeared reliable but never formally tested. He is alert and oriented x3. Insight and judgment appear fair, impulse control appears limited. Vitals/I&O/Wt Last Vital Signs Temp 97.9 F 03/22/23 13:49 Pulse 88 03/22/23 13:49 Resp 16 03/22/23 13:49 BP 117/76 03/22/23 13:49 Pulse Ox 95 03/22/23 13:49 O2 Del Method Room Air 03/22/23 13:49 Data NPU 03/18/23 16:27 03/18/23 16:27 A&P Assessment and plan (1) Schizoaffective disorder, depressive type: (2) Suicidal ideation: (3) Auditory hallucinations: Plan This is a 32-year-old white male with a long history of psychosis and mental health challenges who presents with a significant increase in auditory hallucinations despite compliance with Abilify Maintena. Plan: 1. Continue abilify to 15mg daily in addition to Abilify maintena prescribed monthly. 2. Continue every 15 minute checks for safety. 3. Encourage individual, group and milieu therapies. 4. Encourage sober living treatment after discharge at the highest level of care to which he is willing to commit. 5. Increase wellbutrin xl 300mg in am and depakote as prescribed. Involuntary Hold Information 96 Hour Hold: 96 Hour Involuntary Admission: No Attestations NPU Medical Necessity Statement*: Inpatient hospitalization is medically necessary and the clinically appropriate intervention at this time. We will initiate medications and make changes as indicated. His likely length of stay 3-4 days. Coding Level of Care Code Acute Code for [facility] Fwd Diagnoses Schizoaffective disorder, depressive type F25.1 Suicidal ideation R45.851 Auditory hallucinations R44.0
[2023-03-22 20:19] VITALS: BP 149/88; PULSE 80; RESP 20; TEMP 36.4; O2SAT 96
[2023-03-22] MEDS: divalproex ER 500 mg Tablet (24H) 1000 MG PO (20:26)
[2023-03-22] MEDS: trazodone 50 mg Tablet PO (20:27)
--- NOTE | 2023-03-22 21:08 | PC.NURSE ---
IN DAY ROOM CONVERSING WITH PEERS. PT DENIES SI/HI AND AVH AT THIS TIME. PT DENIES PAIN. REPORTS I'M FEELING SO MUCH BETTER. PT REPORTS ANXIETY 5/10 AND DEPRESSION 2/10, TRAZODONE 50 MG WAS GIVEN ORDERED FOR INSOMNIA AND VISTARIL 50 MG FOR ANXIETY ORDERED. PT MEDICATION COMPLIANT. MOOD APPEARS HAPPY AND INTERACTS APPROPRIATELY WITH STAFF AND PEERS. ALL QUESTIONS ANSWERED AND SUPPORT VOICED.
--- NOTE | 2023-03-23 02:09 | PC.NURSE ---
VISTARIL 50 MG AND TRAZODONE 50 MG GIVEN AT BEDTIME IS DEEMED EFFECTIVE. PT HAS BEEN IN BED RESTING SINCE 2199.
[2023-03-23] MEDS: levothyroxine 100 mcg Tablet PO (05:59)
[2023-03-23 06:00] VITALS: BP 132/90; PULSE 88; RESP 18; O2SAT 97
[2023-03-23] MEDS: metoprolol succinate ER (24 HR) 25 mg Tablet PO (08:05)
[2023-03-23] MEDS: buPROPion XL (24 HR) 300 mg Tablet PO (08:06)
[2023-03-23] MEDS: pantoprazole DR 40 mg Tablet PO (08:06)
[2023-03-23] MEDS: ARIPiprazole 10 mg Tablet 15 MG PO (08:06)
[2023-03-23] MEDS: lisinopril 10 mg Tablet PO (08:06)
[2023-03-23] MEDS: ibuprofen 800 mg tablet PO (08:06)
--- NOTE | 2023-03-23 13:18 | P.NPUDS_ITS ---
Diagnoses at Discharge Discharge Diagnosis (1) Schizoaffective disorder, depressive type: Status: Chronic (2) Suicidal ideation: Status: Resolved (3) Auditory hallucinations: Status: Resolved Reason for Visit Reason for Visit: SI Brief History: History of Present Illness Real Black is a 32 year old male most recently hospitalized in November 2022 with a history of schizoaffective disorder who presented to the emergency department with complaints of auditory hallucinations telling him to harm himself. Patient was admitted to the neuropsychiatric unit for further diagnosis and treatment. Patient reported that he has been compliant with his medications and reports that he has recently received his monthly injection of Abilify approximately 3 days ago and states that usually his mood and his voices become quieter but reports that at this time it is not been the case. He reports that he has been hearing voices telling him to harm himself. He does endorse some depressed mood. He reports some difficulties with concentration. He had stated that he is concerned that if his medications are not adjusted that he may do something to hurt himself. Inpatient psychiatric history: Multiple inpatient hospitalizations Outpatient psychiatric history: He reports receiving CPRS services at [facility] on an outpatient basis with weekly visits Current medications: Abilify Maintena 400 mg IM every 28 days, Wellbutrin SR 200 mg daily, Depakote 1000 mg at night, hydroxyzine 25 twice a day as needed, levothyroxine 100 mcg daily, lisinopril 10 mg daily, metoprolol 25 mg daily, omeprazole 25 mg daily, Seroquel 100 mg as needed at night Allergies: Latuda, olanzapine, Haldol, Chlorpromazine, Social History: He currently lives in a long-term in [facility]. See previous social history below. He reports is unchanged from most recent hospitalization. NPU Discharge Summary 11/23/22 Discharge Diagnosis (1) Schizoaffective disorder, depressive type: ?Status:?Chronic (2) Suicidal ideation: ?Status:?Resolved (3) Auditory hallucinations: ?Status:?Chronic SI? Brief History: HPI NPU History of Present Illness Real Black is a 32 year old male who presented to the ED with the following report: Chief Complaint: Psychiatric Symptoms Stated Complaint: SI Time Seen by Provider: 11/17/22 07:11 Source: patient Mode of arrival: ambulatory Limitations: no limitations History of Present Illness:?? Patient is a 32-year-old male with a history of schizoaffective disorder here for complaints of auditory hallucinations stating that the voices are telling him to harm himself.? He states they are not telling him any specific ways to harm himself. He does state he feels like he might act on the voices.? He report s a previous suicide attempt years ago.? He states he does have a psychiatrist at [facility].? Patient is requesting hospitalization.? He denies homicidal ideations.? No visual hallucinations.? Denies drug or alcohol use.? Patient is a resident at [facility]. ? MD complaint: suicidal ideation and other (auditory hallucinations) Onset (ago): day(s) Duration: constant History of same: Yes Relieving factors: none Exacerbating factors: none Associated psychiatric symptoms: depression, suicidal ideation and auditory hallucinations Associated symptoms: Reports auditory hallucinations, depression and suicidal ideation; Deny visual hallucinations or homicidal ideation Treatments prior to arrival: none If self harm: admits thoughts of self harm He was admitted to the neuropsychiatric unit for definitive treatment of those issues.? He presents today reporting he has been doing well in general in the past 13 months with only intermittent AH occasionally with good medication adherence overall. He reports that he had been doing well until about 3 weeks ago when for some reason he cannot explain he began being more drawn to playing his video games at night and staying up.? As he was having 3 and 4-day stretches where he was having little to no sleep his hallucinations returned and they started getting worse eventually leading to him having command auditory hallucinations to harm himself but not specifically to kill himself per se.? He reports that as a got out of control he knew he needed to come in and may be get his sleep back under control and consider changes in his medication.? We discussed the risks, benefits and alternatives of him starting Abilify as we had attempted this in the past and he understood and agreed to proceed as is documented in this note.? This is in part due to the fact that increases in his Geodon have proved challenging such that he has been somewhat stuck at this 40 mg p.o. twice daily dosing.? Also he had been on several medications back then and polypharmacy was a concern but he has been able to decrease some of those medications.? We reviewed his records and identified his 10/03/2022 outpatient evaluation from [facility] as being a comprehensive exploration of his history and excerpt is included below. Per his 10/03/2022 [facility] inpatient psychiatric discharge summary: Discharge Diagnosis (1) Suicidal ideation: ? ? ? Status: Acute (2) Auditory hallucinations: ? ? ? Status: Acute (3) Schizoaffective disorder, depressive type: ? ? ? Status: Chronic Reason for Visit Reason for Visit:??SI? Brief History: Real Black is a 31 year old male admitted to the neuropsychiatry unit for the following report. Mr. Black is a 31-year-old male with history of schizoaffective disorder presenting to the emergency department due to suicidal ideation and hallucinations.? He reports history of similar however had been doing well.? Symptoms started yesterday morning without known specific provoking factor.? He reports compliance with medication regimen and denies other associated significant changes in related depressive symptoms.? Intensity of hallucinations have been worsening.? They tell him to hurt himself.? He has had increased thoughts of hurting himself because of these voices.? Otherwise denies medical complaints.? No other specific changes in health, exacerbating, or alleviating factors identified. He was admitted to the neuropsychiatry unit for definitive treatment of these issues.? He is well known to this unit with multiple admissions.? The last admission was in June and at that time we changed him from Geodon to Invega and increased his Wellbutrin to 300 mg daily.? He feels like those changes have been working well.? He denies anything that could precipitate a worsening of his auditory hallucinations.? He says he occasionally has flareups of his hallucinations but this is much worse than normal.? He has been generally doing well since he left the hospital in June.? He reported to his therapist and psychiatric nurse practitioner that he had been doing well in recent appointments.? He denies any drug use.? He [place] any stress [place].? He denies any family stress.? He says that he has been compliant with medications.? His mood has been fairly good.? He requested that his Invega be increased.? I agreed to do that for a couple of days and then reevaluate. Hospital Course He slowly acclimated to the individual, group and milieu therapies provided.? He was continued on his medications except for Invega was gradually increased to 9 mg in the morning and 6 mg at bedtime.? He had urinary incontinence on 6 mg twice a day and Cogentin was added.? He had a similar problem with Geodon.? We talked about trying a different antipsychotic but he felt that Invega was good for him and wanted to try that with the Cogentin and increase the dose.? He tolerated these doses and showed steady improvement during his stay. ? He was able to contract for safety outside hospital prior to discharge.? During the hospitalization, patient had routine laboratory studies which were within normal limits except for few outliers.? Additionally there was a general medical evaluation which was also within normal limits and revealed no new acute processes. Discharge Summary: At the time of discharge, lethality was denied and psychosis was resolving.? Mood and anxiety were well managed.? Patient endorsed a plan to follow-up with the aftercare recommendations of the treatment team.? Patient was evaluated and deemed to be absent credible lethality, and had achieved the maximum benefit from an inpatient hospitalization, so was discharged. Per his 07/07/2020 [facility] outpatient psychiatric evaluation: [facility] History and Physical Time In: 13:56 Time Out: 14:57 Chief Complaint: here for therapy and medications History of Present Illness: Information retrieved and edited from [facility] Comp. Clinical Assessment completed on: 05/26/20: anxiety and nervousness, wants therapy and medication management; moved here from [place]. Currently living at [facility], since 04/29/20. Before this arrangement, he was in [place],? living at an reference assistant living facility. He has moved several times back and forth from [place] to [place]. He is hoping his father will retire and his parents will move to [place]; they have a farm in [place]. Real had services with [facility] in 2016. Says he was inpatient due to his voices getting bad and he was suicidal. He says his current diagnosis are bipolar and now he is diagnosed with schizoaffective disorder; he is currently on medications. He is not aware if anyone in his family has bipolar or schizophrenia. He has had suicidal thoughts, chronic in nature. He tried to end his life in 2012 by hanging, reports the rope broke; previously held scissors to his throat; a cousin called him and that is what stopped him from doing it. He lived at [facility](assisted living facility in [place]) for four years, then moved to his Mom's friend's home in [place], [place]. Says he was referred to [facility] by friends of the [place]. Reported symptoms difficulty concentrating, thoughts hard to dismiss, annoyed and irritable, nervous feeling, worries and fears. Reported symptoms difficulty concentrating, thoughts hard to dismiss, annoyed and irritable, nervous feeling, worries and fears.? Denied fatigue, pains, headache, or digestive problems. Current habits: Drinks 3 large glasses of tea per day; sometimes drinks 2 cups of coffee in the morning and 3 sodas during the day.? Currently reports he sleeps from about midnight or 1 AM up until about 8 or 9 AM; usually obtains a bout 5 to 6 hours of rest during that time.? He rarely takes a nap in the day.? Sometimes skips breakfast, and usually eats lunch or dinner.? He tries to walk 2 or 3 times per week (up to 1 and half to 2 miles at a time) for physical exercise. History Past Psychiatric History:? Information retrieved and edited from [facility] Comp. Clinical Assessment completed on: 05/26/20:? Real had services with [facility] in 2016; dx were: F25.1 Schizoaffective DO, Depressed Type; F15.20 Methamphetamine Use Disorder; he has had several NPU stays at [facility]; refer to chart. Most recent inpatient hospitalization was from? 06/12/20 to 06/15/20;included suicidal ideation; depressive disorder; and schizoaffective disorder. Real says hospitalization was due to his voices getting bad and he felt suicidal.? History of chronic suicidal thoughts with a history of suicide gesture/attempt including: He tried to end his life in 2012 by hanging; the rope broke, he had scissors held to his throat; says a cousin called him and that is what stopped him from doing it. Real says every now and then his voices act up. He says he has one unrecognized male voice which tells him to do bad stuff to himself, but not to anyone else.? Usually has increased depression and anxiety in the afternoon, usually from 2 PM to 5 PM.? Reports he can a good day, and then out of the blue he doesn?t feel like doing anything; he feels worthless and down in the dumps for no reason; he says every now and then something may trigger it. He has anger problems and when he gets mad at himself, he has hurt himself in the past; hx of cutting; last time he cut himself was in 2018. He used a knife; was cutting his wrist, but hasn't cut deeply enough to be in the hospital. He expressed inability to concentrate, difficulty completing tasks, delayed responses during conversations.? Says he had ADHD as a child; reported that he attended special classes, and took Concerta, Ritalin, and Adderall.? Says the medication was b eneficial at school, but usually wore off by the time he got home.? Says he is able to control ADHD symptoms as an adult. Family History: Information retrieved and edited from [facility] Comp. Clinical Asse ssment completed on: 05/26/20 Family Psychiatric History: Anxiety and Depression History of Suicide in the Family: No Family history of substance abuse: Alcohol (father) Past Medical History: Information retrieved and edited from [facility] Comp. Clinical Assessment completed on: 05/26/20 Primary Care Provider: Yes (Dr. Flowers); last physical exam: Within past year (05.07.20) Client's Medical History: No major medical illness Surgical Procedure: Tonsillectomy; history of foot fracture Substance Use History: Information retrieved and edited from [facility] Comp. Clinical Assessment completed on: 05/26/20 Client history of substance abuse: Alcohol (yes) Age of onset (years): 13 Pattern of use: denied current use and has not used in 3 years; Cannabis (yes) Age of onset (years): 19 Pattern of use: denied current use; has not used in 3 years ; Amphetamine (yes) Age of onset (years): 21 Pattern of use: (previous snorting and smoking it );denied current use; has not used in 3 years; Nicotine (yes) Age of onset (years): 19 Pattern of use: current use: 1 ppd Client?s drug and/or alcohol use in the last 30 days: No Social History: Information retrieved and edited from [facility] Comp. Clinical Assessment completed on: 05/26/20 Childhood history: Real was born in [place]; at age [age], his parents moved? near [place], [place]. When he was in 5th grade, he moved to [place]. He graduated high school, then moved to [place], [place]. He says he has a good childhood; his parents were in the home growing up and are still together. He is an only child. He is single; has no children. 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 History: Client denies service Abilities/Interests: tries to stay busy, likes to help others; he loves being outside; listens to music Legal Status/History: Current legal issues denied; denies previous arrests incarceration. Spiritual Pursuits: Other (he prays) Highest Education Level Reached: college (12th grade; reports he had ADHD in school and was on meds.) Academic Performance: Performance at grade level Hospital Course Hospital Course He acclimated to the individual, group and milieu therapies provided. When he presented he was having psychosis despite having received his monthly Abilify Maintena injection. Oral Abilify was started to augment his monthly injection a nd that was titrated to 15 mg p.o. daily. He worked with the social work team to establish continued outpatient resources as well as make appropriate outpatient appointments. He had significant improvement during the hospitalization and was able to contract for safety outside of the hospital prior to discharge. During the hospitalization, the patient had routine laboratory studies which were within normal limits except for a few outliers.? Additionally, there was a general medical evaluation which was also within normal limits and revealed no new acute processes.? At the time of discharge, lethality was denied and psychosis was resolving.? Mood and anxiety were well managed.? The patient endorsed a plan to avoid all drugs of abuse and follow up with the aftercare recommendations of the treatment team.? The patient was evaluated and deemed to be absent credible lethality and had achieved the maximum benefit from an inpatient hospitalization, and so was discharged.? Involuntary Hold Information 96 Hour Hold: 96 Hour Involuntary Admission: No Mental Status Exam MSE Comments: This is an obese white male who presents in hospital scrubs with poor grooming and fleeting eye contact. No abnormal movements other than mild psychomotor retardation. He was cooperative with exam and in mild distress. Speech was diminished in rate and normal in prosody and volume with no overt increase in speech latency. Mood described as a little better His affect remained blunted. Thought process was mostly organized, thought content: Patient endorsed having no suicidal ideation or homicidal ideation, there are no delusions reported or noted, he endorsed command auditory hallucinations telling him to harm himself. He denied visual hallucinations. Attention and concentration appeared intact and memory appeared reliable but never formally tested. He is alert and oriented x3. Insight and judgment appear fair, impulse control appears limited. Discharge Data Studies Completed and Pending: Laboratory Results WBC 6.41 10^3/uL (3.2 9-11.43) 03/18/23 16: RBC 5.06 10^6/uL (3.8 5-5.65) 03/18/23 16: Hgb 15.70 g/dL (11.27 -16.99) 03/18/23 16: Hct 46.7 % (37-53) 03/18/23 16: MCV 92.3 fl (82-101) 03/18/23 16: MCH 31.0 pg (27-33) 03/18/23 16: MCHC 33.6 g/dL (30-55) 03/18/23 16: RDW 12.6 % (12.1-15.1 ) 03/18/23 16: Plt Count 207 10^3/cmm (157 -399) 03/18/23 16: MPV 9.9 fL (7.4-10.4) 03/18/23 16: Neut % (Auto) 51.5 % 03/18/23 16: Lymph % (Auto) 41.5 % 03/18/23 16: [place] % (Auto) 4.8 % 03/18/23 16: Eos % (Auto) 1.6 % 03/18/23 16: Baso % (Auto) 0.3 % 03/18/23 16: Neut # (Auto) 3.30 10^3/uL (1.8 -7.7) 03/18/23 16: Lymph # (Auto) 2.7 10^3/uL (0.8- 4.8) 03/18/23 16:27 [place] # (Auto) 0.3 10^3/uL (0.2- 0.9) 03/18/23 16: Eos # (Auto) 0.1 10^3/uL (0.0- 0.8) 03/18/23 16: Baso # (Auto) 0.0 10^3/uL (0.0- 0.1) 03/18/23 16: Nucleated RBC % (a uto) 0 % 03/18/23 16: Nucleated RBCs # 0.0 /100WBC 03/18/23 16: Sodium 135 mmol/L (136-1 45) L 03/18/23 16: Potassium 4.4 mmol/L (3.5-5 .1) 03/18/23 16: Chloride 100 mmol/L (98-10 7) 03/18/23 16: Carbon Dioxide 23 mmol/L (22-29) 03/18/23 16: Anion Gap 16.4 (5-19) 03/18/23 16:27 BUN 14 mg/dL (6-20) 03/18/23 16: Creatinine 0.8 mg/dL (0.7-1. 2) 03/18/23 16: GFR Calculation 112.8 mL/min (90- 130) 03/18/23 16: Glucose 85 mg/dL (65-115) 03/18/23 16: Calculated Osmolal ity 280 mOsm/kg (285- 295) L 03/18/23 16: Calcium 9.5 mg/dL (8.5-10 .5) 03/18/23 16: Total Bilirubin 0.4 mg/dL (0.15-1 .2) 03/18/23 16: AST 19 U/L (0-40) 03/18/23 16: ALT 40 U/L (0-41) 03/18/23 16: Alkaline Phosphata se 32 U/L (40-130) L 03/18/23 16: Total Protein 7.8 g/dL (6.6-8.7 ) 03/18/23 16: Albumin 4.7 g/dL (3.5-5.2 ) 03/18/23 16:27 Globulin 3.1 g/dL (1.3-4.6 ) 03/18/23 16:27 Urine Color Yellow (Yellow) 03/18/23 16:25 Urine Appearance Clear (CLEAR) 03/18/23 16:25 Urine pH 7 (5-7) 03/18/23 16:25 Ur Specific Gravit y 1.000 (1.005-1.0 30) L 03/18/23 16:25 Urine Protein Neg (Negative) 03/18/23 16:25 Urine Glucose (UA) Norm (Normal) 03/18/23 16:25 Urine Ketones Negative (Negati ve) 03/18/23 16:25 Urine Blood Neg (Negative) 03/18/23 16:25 Urine Nitrate Negative (Negati ve) 03/18/23 16:25 Urine Bilirubin Neg (Negative) 03/18/23 16:25 Urine Urobilinogen Norm mg/dL (Negat bryan) 03/18/23 16:25 Ur Leukocyte Unique ase Negative (Negati ve) 03/18/23 16:25 Salicylates 1.2 mg/dL (3-10) L 03/18/23 16:27 Urine Opiates Scre en Negative ng/mL (N egative) 03/18/23 16:25 Acetaminophen < 5.0 ug/mL (10-3 0) L 03/18/23 16:27 Ur Barbiturates Sc reen Negative ng/mL (N egative) 03/18/23 16:25 Ur Phencyclidine S crn Negative ng/mL (N egative) 03/18/23 16:25 Ur Amphetamines Sc reen Negative ng/mL (N egative) 03/18/23 16:25 U Benzodiazepines Scrn Negative ng/mL (N egative) 03/18/23 16:25 Urine Cocaine Scre en Negative ng/mL (N egative) 03/18/23 16:25 U Marijuana (THC) Screen Positive ng/mL (N egative) H 03/18/23 16:25 Ethyl Alcohol < 10 mg/dL (0-10) 03/18/23 16:27 Vitals: Last Vital Signs Temp 97.5 F L 03/22/23 20:19 Pulse 88 03/23/23 06:00 Resp 18 03/23/23 06:00 BP 132/90 03/23/23 06:00 Pulse Ox 97 03/23/23 06:00 O2 Del Method Room Air 03/23/23 06:00 Discharge Plan Discharge Patient Disposition: Home Condition: Stable Prescriptions: New aripiprazole 15 mg tablet 15 mg PO DAILY 30 Days Qty: 30 1RF trazodone 50 mg Tablet 50 mg PO BEDTIME PRN (Reason: Sleep) 30 Days Qty: 30 1RF bupropion HCl 300 mg Tablet Extended Release 24 Hr 300 mg PO DAILY 30 Days Qty: 30 1RF Continued acetaminophen [Tylenol Extra Strength] 500 mg tablet 1,000 mg PO Q6H PRN (Reason: Pain) Abilify Maintena 400 mg suspension,extended rel recon 400 mg IM Q28D Qty: 1 5RF Rx Instructions: Administer one IM injection (400 mg) every 28 to 30 days hydroxyzine pamoate 25 mg capsule 25 mg PO BID PRN (Reason: Anxiety) Qty: 60 2RF Rx Instructions: Take 1 capsule twice daily, if needed for anxiety ibuprofen 800 mg tablet 800 mg PO TID PRN (Reason: pain) divalproex 500 mg tablet extended release 24 hr 1,000 mg PO BEDTIME@20 Qty: 60 2RF Rx Instructions: Taking 2 tablets daily at bedtime at 8 PM melatonin 3 mg tablet See Rx Instructions PO BEDTIME@20 PRN (Reason: sleep) Qty: 60 2RF Rx Instructions: Take one or two tablets at bedtime, if needed for sleep metoprolol succinate 25 mg tablet extended release 24 hr 25 mg PO DAILY@07 loperamide 2 mg capsule 2 mg PO DAILY PRN (Reason: Diarrhea) levothyroxine [Levoxyl] 100 mcg tablet 100 mcg PO DAILY@07 lisinopril 10 mg tablet 10 mg PO DAILY@07 omeprazole 20 mg Capsule,Delayed Release(Dr/Ec) 20 mg PO DAILY@16 Discontinued bupropion HCl 200 mg tablet sustained-release 12 hr 200 mg PO QAM Qty: 30 2RF Rx Instructions: Take one tablet by mouth every morning; stop 150 mg XL dose quetiapine 100 mg tablet 100 mg PO BID PRN (Reason: agitation/psychosis) 30 Days Qty: 60 2RF Discharge Orders: Discharge Order (Routine); Ordered 03/23/23 Ordered By: Troy Stevens Referrals: Patria Mckinney APRN [Nurse Practitioner] - 03/30/23 1:45 pm (Follow up) Washington Eckert LPC [Therapist] - 03/31/23 11:45 am (Therapy apt. ) Sp Flowers MD [Primary Care Provider] - Discharge Diet: Regular Discharge Activity: Resume usual activity Patient Instructions: Bupropion (By mouth) (Zyban, Wellbutrin XL, Wellbutrin SR, Wellbutrin), Trazodone (By mouth) (Desyrel, Desyrel Dividose, Oleptro, Trazamine), Aripiprazole (By mouth) (Abilify, Abilify Discmelt), Schizoaffective Disorder (DC), Suicide Prevention (DC), Opioid Safety Discharge Attestations NPU Time Spent in Discharge Care*: less than 30 min Specific Discharge Activities: Specific discharge activities: educating patient, discussing with therapeutic case manager/social workers/dc planners, documenting/other paperwork and evaluating patient/reviewing data Status at Discharge: Cognitive status at discharge: cognitively intact , Behavioral status at discharge: cooperative , Coding Level of Care Code Acute Chg FW DC note Diagnoses Schizoaffective disorder, depressive type F25.1 Suicidal ideation R45.851 Auditory hallucinations R44.0
--- NOTE | 2023-03-23 13:39 | DCPLANNER ---
Imm was printed and given to pt and copy placed in file.
--- NOTE | 2023-03-23 13:43 | DCPLANNER ---
Imm was printed and given to pt and copy placed in file.
[2023-03-23 13:48] VITALS: BP 132/90; PULSE 88; RESP 18; O2SAT 97
== END 2023-03-23 16:10 | disposition home or self-care (01) | DRG 885 ==
LOC: ER 16:18 → NP 17:22
PROVIDERS: Admitting Provider Psychiatry & Neurology Psychiatry; Emergency Provider Emergency Medicine; PCP Family Medicine; Visit Provider Psychiatry & Neurology Psychiatry
DX: F25.1 Schizoaffective disorder, depressive type (principal); R45.851 Suicidal ideations; Z87.891 Personal history of nicotine dependence; R32 Unspecified urinary incontinence; Z81.8 Family history of other mental and behavioral disorders; Z81.1 Family history of alcohol abuse and dependence
CPT/HCPCS: 36415; 80053; 80306; 80307; 81003; 85025; 90471; 90686; 97150; 97165; 99285

== ENCOUNTER 2023-04-24 03:12 | Emergency (ER) | payer MEDICARE, MEDICAID, SELFPAY ==
[2023-02-16 13:35] VITALS: BP 138/86; BMI 35.8
[2023-04-24 03:18] VITALS: BP 142/98; PULSE 95; RESP 20; TEMP 36.4; O2SAT 97; BMI 32.5
--- NOTE | 2023-04-24 03:21 | ED_ITS ---
HPI - Back Pain/Injury General: Stated Complaint: Back Pain right Time Seen by Provider: 04/24/23 03:16 Source: patient Mode of arrival: ambulatory Limitations: no limitations History of Present Illness: 32-year-old male states he has been havi ng thoracic back pain last few days. States pain is in his right side is worse with movement and touch rates his pain a 5 out of 10 currently denies any known injuries. Associated symptoms: Deny abdominal pain, chills, fever(s), nausea or vomiting Review of Systems Const: Denies: fever(s), chills, body aches or change in appetite ENMT: Denies: throat pain or dental pain Card: Denies: chest pain Resp: Denies: dyspnea GI: Denies: abdominal pain, nausea, vomiting or diarrhea Musc: Reports: back pain; Denies: neck pain Skin/Breast: Denies: rash Neuro: Denies: headache(s) PFSH ED PFSH: Medical History Psychiatric care Schizoaffective disorder, depressive type Depressive disorder Hallucination Family History Other Diabetes Hypertension Schizoaffective disorder, depressive type Social History Smoking and tobacco/nicotine status: former use of tobacco/nicotine Quit status (tobacco/nicotine): has quit using Year quit tobacco: 150 days? Second hand smoke exposure: Yes Alcohol intake: never Substance/Drug Use: never Adopted: No Caregiver/support person: Yes (sets up his medication) Lives independently: No (Staying at [facility]) Household members: other Details: Multiple other residents at the facility. Housing: Assisted Living Facility Marital status: Single Number of children: 0 Number of grandchildren: 0 Highest education level completed: High School Graduate service: No Current occupational status: disabled Current occupational exposures/hazards: No Pets and animals: Yes Pets & animals: cat(s) Leisure activites: exercise, music, games and other Leisure activities details: watch TV Sexually active: Yes How many partners: 1 Are you practicing safe sex: No Do you think of yourself as: Straight/Heterosexual Current gender identity: Male Paola/Roman Catholic: Yarsanism Special paola needs: No Agree to transfusion: Yes Physical Exam Const: COMMON NORMALS: no acute distress, patient oriented x3 and healthy appearing HENMT: COMMON NORMALS: normocephalic and atraumatic HEAD & SCALP: normocephalic and atraumatic Neck/C-Spine: COMMON NORMALS: full ROM and supple Chest: COMMONS NORMALS: normal inspection of the chest Resp: COMMON NORMALS: normal respiratory effort Cardio: COMMON NORMALS: regular rate, regular rhythm and No murmurs present (Cardio) RATE: regular rate RHYTHM: regular rhythm GI: COMMON NORMALS: Normal to inspection, nondistended, normoactive bowel sounds present, Soft to palpation, non-tender and no masses PALPATION: Yes Soft to palpation Back/Pelvis: OTHER: Tenderness over right thoracic region no midline tenderness Extremity: COMMON NORMALS: normal to inspection and full ROM Neuro: COMMON NORMALS: patient oriented x3, moves all extremities and no focal motor deficits Psych: COMMON NORMALS: mental status grossly normal, Normal thought process present and cooperative THOUGHT PROCESS: Normal thought process present Skin: COMMON NORMALS: no rashes or lesions noted and no wounds GENERAL SKIN EXAM: no rashes or lesions noted MDM - Back Pain/Injury Medical Decision Making Patient presents here with thoracic back strain he has no signs of kidney stone no midline pain he is stable for discharge we will place him on Naprosyn and Robaxin. Medical Records I reviewed the patient's medical records. No radiology studies performed this visit Discharge Plan Discharge Patient Disposition: Home Clinical Impression: Back pain, thoracic Qualifiers: Chronicity: acute Back pain laterality: right Qualified Code(s): M54.6 - Pain in thoracic spine Condition: Stable Prescriptions: New methocarbamol 750 mg tablet 750 mg PO Q6H PRN (Reason: spasms) Qty: 20 0RF Naprosyn 500 mg tablet 500 mg PO BID PRN (Reason: pain) Qty: 20 0RF No Action acetaminophen [Tylenol Extra Strength] 500 mg tablet 1,000 mg PO Q6H PRN (Reason: Pain) Abilify Maintena 400 mg suspension,extended rel recon 400 mg IM Q28D Qty: 1 5RF Rx Instructions: Administer one IM injection (400 mg) every 28 to 30 days hydroxyzine pamoate 25 mg capsule 25 mg PO BID PRN (Reason: Anxiety) Qty: 60 2RF Rx Instructions: Take 1 capsule twice daily, if needed for anxiety ibuprofen 800 mg tablet 800 mg PO TID PRN (Reason: pain) divalproex 500 mg tablet extended release 24 hr 1,000 mg PO BEDTIME@20 Qty: 60 2RF Rx Instructions: Taking 2 tablets daily at bedtime at 8 PM melatonin 3 mg tablet See Rx Instructions PO BEDTIME@20 PRN (Reason: sleep) Qty: 60 2RF Rx Instructions: Take one or two tablets at bedtime, if needed for sleep metoprolol succinate 25 mg tablet extended release 24 hr 25 mg PO DAILY@07 loperamide 2 mg capsule 2 mg PO DAILY PRN (Reason: Diarrhea) levothyroxine [Levoxyl] 100 mcg tablet 100 mcg PO DAILY@07 lisinopril 10 mg tablet 10 mg PO DAILY@07 aripiprazole 15 mg tablet 15 mg PO DAILY 30 Days Qty: 30 1RF trazodone 50 mg Tablet 50 mg PO BEDTIME PRN (Reason: Sleep) 30 Days Qty: 30 1RF bupropion HCl 300 mg Tablet Extended Release 24 Hr 300 mg PO DAILY 30 Days Qty: 30 1RF omeprazole 20 mg Capsule,Delayed Release(Dr/Ec) 20 mg PO DAILY@16 Discharge Orders: Discharge ED (Routine); Ordered 04/24/23 Ordered By: Jessica Rai Referrals: Sp Flowers MD [Primary Care Provider] - 1-3 days Discharge Diet: Advance as tolerated Discharge Activity: Resume usual activity Patient Instructions: Back Pain (ED) Coding Level of Care Code ED Accounting Practice Manager for Keny Ying
[2023-04-24] MEDS: methocarbamol 750 mg Tablet 1500 MG PO (03:35)
[2023-04-24] MEDS: ketorolac 30 mg/mL INJ IM (03:35)
[2023-04-24 03:53] VITALS: BP 142/98; PULSE 100; RESP 18; O2SAT 95
== END 2023-04-24 03:55 | disposition home or self-care (01) ==
PROVIDERS: Emergency Provider Emergency Medicine; PCP Family Medicine
DX: M54.6 Pain in thoracic spine (principal); Z87.891 Personal history of nicotine dependence
CPT/HCPCS: 96372; 99284; J1885

== ENCOUNTER 2023-05-10 00:46 | Inpatient (IN) | payer MEDICARE, MEDICAID, SELFPAY ==
[2023-02-16 13:35] VITALS: BP 138/86; BMI 35.8
[2023-05-10 00:49] VITALS: BP 130/93; PULSE 118; RESP 18; TEMP 36.7; O2SAT 96; BMI 34.0
--- NOTE | 2023-05-10 01:01 | PC.NURSE ---
Patient changed into green scrubs and belongings have been removed. Pt allowed to keep underware on but checked for contraband.
[2023-05-10 01:03] LABS: Basophils % 0.4 %; Eosinophils # 0.1 10^3/uL (0.0-0.8); Hematocrit 44.4 % (37-53); Lymphocytes # 2.8 10^3/uL (0.8-4.8); Lymphocytes % 36.4 %; Mean Corpuscular Hemoglobin 31.1 pg (27-33); Mean Corpuscular Volume 91.4 fl (82-101); Mean Platelet Volume 9.4 fL (7.4-10.4); Monocytes # 0.5 10^3/uL (0.2-0.9); Monocytes % 6.5 %; Neutrophils # 4.32 10^3/uL (1.8-7.7); Neutrophils % 55.4 %; Nucleated Red Blood Cells % 0 %; Platelet Count 226 10^3/cmm (157-399); Red Blood Count 4.86 10^6/uL (3.85-5.65); Red Cell Distribution Width 12.7 % (12.1-15.1)
[2023-05-10 01:04] LABS: Add Urine Microscopic? NO; Charge for UA Resulting for Rev
[2023-05-10 01:08] LABS: Bilirubin Urine Neg (Negative); Blood Urine Neg (Negative); Glucose Urine UA Norm (Normal); Ketones Urine Negative (Negative); Leukocyte Esterase Urine Negative (Negative); Nitrate Urine Negative (Negative); Protein Urine Neg (Negative); Specific Gravity, Urine 1.015 (1.005-1.030); Urine Appearance Clear (CLEAR); Urine Color Yellow (Yellow); Urobilinogen Urine Norm (Negative); pH Urine 5 (5-7)
[2023-05-10 01:15] LABS: Amphetamines Screen Urine Negative (Negative); Barbiturates Screen Urine Negative (Negative); Benzodiazepines Screen Urine Negative (Negative); Cocaine Screen Urine Negative (Negative); Opiate Screen Urine Negative (Negative); PCP Screen Urine Negative (Negative); THC Screen Urine Positive (Negative)
--- NOTE | 2023-05-10 01:16 | W.ED.PSYCHS ---
HPI - Psych General: Chief Complaint: Psychiatric Symptoms Stated Complaint: SI Time Seen by Provider: 05/10/23 00:48 History of Present Illness: Patient presents to the ER with complaints of hearing voices that is telling him to kill himself. Patient was just recently inpatient for similar instances. Patient is on the Abilify Depo shot. This is due in the next 3 to 4 days per the patient. Patient is on for sure if he can wait that long. Patient denies any has any specific plan to harm himself and denies homicidal ideation. Patient does admit that he would prefer to be admitted inpatient. Review of Systems General: Reports: 10 or more systems reviewed and unremarkable except in HPI and below PFSH ED PFSH: Medical History Psychiatric care Schizoaffective disorder, depressive type Depressive disorder Hallucination Family History Other Diabetes Hypertension Schizoaffective disorder, depressive type Social History Smoking and tobacco/nicotine status: former use of tobacco/nicotine Quit status (tobacco/nicotine): has quit using Year quit tobacco: 150 days? Second hand smoke exposure: Yes Alcohol intake: never Substance/Drug Use: never Adopted: No Caregiver/support person: Yes (sets up his medication) Lives independently: No (Staying at [facility]) Household members: other Details: Multiple other residents at the facility. Housing: Assisted Living Facility Marital status: Single Number of children: 0 Number of grandchildren: 0 Highest education level completed: High School Graduate service: No Current occupational status: disabled Current occupational exposures/hazards: No Pets and animals: Yes Pets & animals: cat(s) Leisure activites: exercise, music, games and other Leisure activities details: watch TV Sexually active: Yes How many partners: 1 Are you practicing safe sex: No Do you think of yourself as: Straight/Heterosexual Current gender identity: Male Paola/Anabaptism: Adventist Special paola needs: No Agree to transfusion: Yes Physical Exam Const: COMMON NORMALS: no acute distress, average body habitus, patient oriented x3, no limitations, healthy appearing, alert and well nourished HENMT: COMMON NORMALS: normocephalic, atraumatic, hearing grossly normal bilaterally, external ears normal, EAC's normal, Normal external nose present, moist oral mucous membranes and oropharynx normal HEAD & SCALP: normocephalic and atraumatic NOSE: Normal external nose present EXTERNAL EAR: Yes external ears normal EXTERNAL AUDITORY CANAL: EAC's normal Neck/C-Spine: COMMON NORMALS: no JVD Resp: COMMON NORMALS: normal respiratory effort, No retractions, No use of accessory muscles and clear to auscultation bilaterally AUSCULTATION: clear to auscultation bilaterally Cardio: COMMON NORMALS: no JVD, regular rate, regular rhythm, S1 normal heart sound present, S2 normal heart sound present, No gallops present (Cardio), No clicks present (Cardio), No murmurs present (Cardio) and No rub (Cardio) RATE: regular rate RHYTHM: regular rhythm HEART SOUNDS: S1 normal heart sound present and S2 normal heart sound present GI: COMMON NORMALS: Normal to inspection, nondistended, normoactive bowel sounds present, Soft to palpation, non-tender, No hepatosplenomegaly present and no masses PALPATION: Yes Soft to palpation and Yes No hepatosplenomegaly present Neuro: COMMON NORMALS: patient oriented x3 SENSORIUM/ORIENTATION: Yes alert Course Vital Signs: Vital signs: Vital Signs Temperature 98.1 F 05/10/23 00:49 Pulse Rate 118 H 05/10/23 00:49 Respiratory Rate 18 05/10/23 00:49 Blood Pressure 130/93 05/10/23 00:49 Pulse Oximetry 96 05/10/23 00:49 Oxygen Delivery Me thod Room Air 05/10/23 00:49 MDM - Psych Medical Decision Making Patient was worked up in a standard psychiatric fashion for medical clearance. Dr. Stevens was consulted and he agreed to place patient in [facility] for further evaluation and treatment. Differential Diagnosis Likely acute psychosis, chronic schizophrenia and suicidal ideation; Unlikely bipolar disorder, depression, drug-induced psychotic disorder or acute anxiety Medical Records I reviewed the patient's medical records. Lab Data I reviewed the patient's lab results. 05/10/23 00:55 05/10/23 00:55 Laboratory Results WBC 7.80 10^3/uL (3.29-11.43) 05/10/23 00:55 RBC 4.86 10^6/uL (3.85-5.65) 05/10/23 00:55 Hgb 15.10 g/dL (11.27-16.99) 05/10/23 00:55 Hct 44.4 % (37-53) 05/10/23 00:55 MCV 91.4 fl (82-101) 05/10/23 00:55 MCH 31.1 pg (27-33) 05/10/23 00:55 MCHC 34.0 g/dL (30-55) 05/10/23 00:55 RDW 12.7 % (12.1-15.1) 05/10/23 00:55 Plt Count 226 10^3/cmm (157-399) 05/10/23 00:55 MPV 9.4 fL (7.4-10.4) 05/10/23 00:55 Neut % (Auto) 55.4 % 05/10/23 00:55 Lymph % (Auto) 36.4 % 05/10/23 00:55 [place] % (Auto) 6.5 % 05/10/23 00:55 Eos % (Auto) 1.0 % 05/10/23 00:55 Baso % (Auto) 0.4 % 05/10/23 00:55 Neut # (Auto) 4.32 10^3/uL (1.8-7.7) 05/10/23 00:55 Lymph # (Auto) 2.8 10^3/uL (0.8-4.8) 05/10/23 00:55 [place] # (Auto) 0.5 10^3/uL (0.2-0.9) 05/10/23 00:55 Eos # (Auto) 0.1 10^3/uL (0.0-0.8) 05/10/23 00:55 Baso # (Auto) 0.0 10^3/uL (0.0-0.1) 05/10/23 00:55 Nucleated RBC % (auto) 0 % 05/10/23 00:55 Nucleated RBCs # 0.0 /100WBC 05/10/23 00:55 Sodium 137 mmol/L (136-145) 05/10/23 00:55 Potassium 4.3 mmol/L (3.5-5.1) 05/10/23 00:55 Chloride 102 mmol/L (98-107) 05/10/23 00:55 Carbon Dioxide 21 mmol/L (22-29) L 05/10/23 00:55 Anion Gap 18.3 (5-19) 05/10/23 00:55 BUN 12 mg/dL (6-20) 05/10/23 00:55 Creatinine 0.8 mg/dL (0.7-1.2) 05/10/23 00:55 GFR Calculation 112.8 mL/min (90-130) 05/10/23 00:55 Glucose 103 mg/dL (65-115) 05/10/23 00:55 Calculated Osmolality 284 mOsm/kg (285-295) L 05/10/23 00:55 Calcium 8.9 mg/dL (8.5-10.5) 05/10/23 00:55 Total Bilirubin 0.2 mg/dL (0.15-1.2) 05/10/23 00:55 AST 17 U/L (0-40) 05/10/23 00:55 ALT 40 U/L (0-41) 05/10/23 00:55 Alkaline Phosphatase 31 U/L (40-130) L 05/10/23 00:55 Total Protein 7.2 g/dL (6.6-8.7) 05/10/23 00:55 Albumin 4.2 g/dL (3.5-5.2) 05/10/23 00:55 Globulin 3.0 g/dL (1.3-4.6) 05/10/23 00:55 TSH 3.33 uIU/mL (0.27-4.20) 05/10/23 00:55 Urine Color Yellow (Yellow) 05/10/23 00:58 Urine Appearance Clear (CLEAR) 05/10/23 00:58 Urine pH 5 (5-7) 05/10/23 00:58 Ur Specific [place] 1.015 (1.005-1.030) 05/10/23 00:58 Urine Protein Neg (Negative) 05/10/23 00:58 Urine Glucose (UA) Norm (Normal) 05/10/23 00:58 Urine Ketones Negative (Negative) 05/10/23 00:58 Urine Blood Neg (Negative) 05/10/23 00:58 Urine Nitrate Negative (Negative) 05/10/23 00:58 Urine Bilirubin Neg (Negative) 05/10/23 00:58 Urine Urobilinogen Norm mg/dL (Negative) 05/10/23 00:58 Ur Leukocyte Esterase Negative (Negative) 05/10/23 00:58 Salicylates < 0.3 mg/dL (3-10) L 05/10/23 00:55 Urine Opiates Screen Negative ng/mL (Negative) 05/10/23 00:58 Acetaminophen < 5.0 ug/mL (10-30) L 05/10/23 00:55 Ur Barbiturates Screen Negative ng/mL (Negative) 05/10/23 00:58 Valproic Acid 35.5 ug/mL (50-100) L 05/10/23 00:55 Ur Phencyclidine Scrn Negative ng/mL (Negative) 05/10/23 00:58 Ur Amphetamines Screen Negative ng/mL (Negative) 05/10/23 00:58 U Benzodiazepines Scrn Negative ng/mL (Negative) 05/10/23 00:58 Urine Cocaine Screen Negative ng/mL (Negative) 05/10/23 00:58 U Marijuana (THC) Screen Positive ng/mL (Negative) H 05/10/23 00:58 Ethyl Alcohol < 10 mg/dL (0-10) 05/10/23 00:55 All radiology interpretation(s) finalized by discharge Discharge Plan Discharge Patient Disposition: Admitted As Inpatient Clinical Impression: Suicidal ideation, Acute psychosis Condition: Stable Coding Level of Care Code ED Bank Teller Machine Mechanic for Keny Ying
[2023-05-10 01:23] LABS: Valproic Acid Level 35.5 ug/mL (50-100)
[2023-05-10 01:29] LABS: Alanine Aminotransferase 40 U/L (0-41); Albumin Level 4.2 g/dL (3.5-5.2); Alkaline Phosphatase 31 U/L (40-130); Aspartate Amino Transferase 17 U/L (0-40); Blood Urea Nitrogen 12 mg/dL (6-20); Calcium 8.9 mg/dL (8.5-10.5); Carbon Dioxide 21 mmol/L (22-29); Chloride 102 mmol/L (98-107); Glomerular Filtration Rate 112.8 mL/min (90-130); Glucose 103 mg/dL (65-115); Osmolality Calculated 284 mOsm/kg (285-295); Sodium 137 mmol/L (136-145); Thyroid Stimulating Hormone 3.33 uIU/mL (0.27-4.20); Total Bilirubin 0.2 mg/dL (0.15-1.2); Total Protein 7.2 g/dL (6.6-8.7)
[2023-05-10 01:35] LABS: Acetaminophen < 5.0 ug/mL (10-30); Alcohol Level < 10 mg/dL (0-10); Anion Gap 18.3 (5-19); Potassium 4.3 mmol/L (3.5-5.1); Salicylate < 0.3 mg/dL (3-10)
[2023-05-10 03:15] VITALS: BP 144/92; PULSE 95; RESP 16; O2SAT 95
--- NOTE | 2023-05-10 03:18 | PC.NURSE ---
Report called to Nu ALVAREZ in N[facility]. All questions and concerns addressed at time of report.
[2023-05-10 03:29] VITALS: BP 128/87; PULSE 97; RESP 20; TEMP 36.3; O2SAT 97
[2023-05-10] MEDS: hyDROXYzine 25 mg Capsule 50 MG PO ×3 (04:04→20:27)
[2023-05-10] MEDS: trazodone 50 mg Tablet PO ×2 (04:04→19:50)
[2023-05-10 06:00] VITALS: BP 124/73; PULSE 130; RESP 16; O2SAT 98
[2023-05-10] MEDS: levothyroxine 100 mcg Tablet PO (09:47)
[2023-05-10] MEDS: ARIPiprazole 30 mg Tablet 15 MG PO (09:47)
[2023-05-10] MEDS: pantoprazole DR 40 mg Tablet PO (09:47)
[2023-05-10] MEDS: lisinopril 10 mg Tablet PO (09:47)
[2023-05-10] MEDS: buPROPion XL (24 HR) 300 mg Tablet PO (09:47)
[2023-05-10] MEDS: metoprolol succinate ER (24 HR) 25 mg Tablet PO (09:47)
--- NOTE | 2023-05-10 12:14 | PC.NURSE ---
[facility] nurse verified the last time the patient received his abilify 400mg IM was on 04/13/23 and is currently due for his next injection. Doctor Figueroa notified.
[2023-05-10] MEDS: ARIPiprazole Maintena 400 MG IM (13:03)
[2023-05-10 14:00] VITALS: BP 131/84; PULSE 80; RESP 16; TEMP 36.6; O2SAT 95
[2023-05-10] MEDS: ibuprofen 600 mg Tablet PO (18:39)
--- NOTE | 2023-05-10 18:49 | W.PM.NPUH&PS ---
Providers/Chief Complaint Admitting Physician: Troy Stevens MD Primary Care Provider: Sp Flowers MD Chief Complaint: SI HPI NPU History of Present Illness Real Black is a 32 year old male currently residing at the [facility] who presented to the emergency department with complaints of command auditory hallucinations telling him to kill himself. He had reported that he had been compliant with his Abilify monthly injection but states that over the past 3 to 4 days he has been having more auditory hallucinations telling him to harm himself. He states that the voices are chronically present but states that they had been more manageable but approximately 1 week till his next injection of Abilify he has been having an emerging problem of increased prevalence of the hallucinations. Patient denied any homicidal ideation and reports that he is often overwhelmed. He states that a recent stressor for him had been that he had been worried about going on vacation to [place] with his family members and stated that he was under a great deal of stress. Patient was admitted to the neuropsychiatric unit for further evaluation and treatment. He reports no substantial changes since his last hospitalization and discharged from the neuropsychiatric unit on 03/23/2023. Excerpt from NPU DISCHARGE 03/23/23 Discharge Diagnosis (1) Schizoaffective disorder, depressive type: Status: Chronic (2) Suicidal ideation: Status: Resolved (3) Auditory hallucinations: Status: Resolved Reason for Visit SI Brief History: History of Present Illness Real Black is a 32 year old male most recently hospitalized in November 2022 with a history of schizoaffective disorder who presented to the emergency department with complaints of auditory hallucinations telling him to harm himself. Patient was admitted to the neuropsychiatric unit for further diagnosis and treatment. Patient reported that he has been compliant with his medications and reports that he has recently received his monthly injection of Abilify approximately 3 days ago and states that usually his mood and his voices become quieter but reports that at this time it is not been the case. He reports that he has been hearing voices telling him to harm himself. He does endorse some depressed mood. He reports some difficulties with concentration. He had stated that he is concerned that if his medications are not adjusted that he may do something to hurt himself. Inpatient psychiatric history: Multiple inpatient hospitalizations Outpatient psychiatric history: He reports receiving CPRS services at [facility] on an outpatient basis with weekly visits Current medications: Abilify Maintena 400 mg IM every 28 days, Wellbutrin SR 200 mg daily, Depakote 1000 mg at night, hydroxyzine 25 twice a day as needed, levothyroxine 100 mcg daily, lisinopril 10 mg daily, metoprolol 25 mg daily, omeprazole 25 mg daily, Seroquel 100 mg as needed at night Allergies: Latuda, olanzapine, Haldol, Chlorpromazine, Social History: He currently lives in a care home in [facility]. See previous social history below. He reports is unchanged from most recent hospitalization. NPU Discharge Summary 11/23/22 Discharge Diagnosis (1) Schizoaffective disorder, depressive type:?Status:?Chronic (2) Suicidal ideation:?Status:?Resolved (3) Auditory hallucinations:?Status:?Chronic SI? Brief History: HPI NPU History of Present Illness Real Black is a 32 year old male who presented to the ED with the following report: Chief Complaint: Psychiatric Symptoms Stated Complaint: SI Time Seen by Provider: 11/17/22 07:11 Source: patient Mode of arrival: ambulatory Limitations: no limitations History of Present Illness:?? Patient is a 32-year-old male with a history of schizoaffective disorder here for complaints of auditory hallucinations stating that the voices are telling him to harm himself.? He states they are not telling him any specific ways to harm himself. He does state he feels like he might act on the voices.? He reports a previous suicide attempt years ago.? He states he does have a psychiatrist at [facility].? Patient is requesting hospitalization.? He denies homicidal ideations.? No visual hallucinations.? Denies drug or alcohol use.? Patient is a resident at [facility]. ? MD complaint: suicidal ideation and other (auditory hallucinations) Onset (ago): day(s) Duration: constant History of same: Yes Relieving factors: none Exacerbating factors: none Associated psychiatric symptoms: depression, suicidal ideation and auditory hallucinations Associated symptoms: Reports auditory hallucinations, depression and suicidal ideation; Deny visual hallucinations or homicidal ideation Treatments prior to arrival: none If self harm: admits thoughts of self harm He was admitted to the neuropsychiatric unit for definitive treatment of those issues.? He presents today reporting he has been doing well in general in the past 13 months with only intermittent AH occasionally with good medication adherence overall. He reports that he had been doing well until about 3 weeks ago when for some reason he cannot explain he began being more drawn to playing his video games at night and staying up.? As he was having 3 and 4-day stretches where he was having little to no sleep his hallucinations returned and they started getting worse eventually leading to him having command auditory hallucinations to harm himself but not specifically to kill himself per se.? He reports that as a got out of control he knew he needed to come in and may be get his sleep back under control and consider changes in his medication.? We discussed the risks, benefits and alternatives of him starting Abilify as we had attempted this in the past and he understood and agreed to proceed as is documented in this note.? This is in part due to the fact that increases in his Geodon have proved challenging such that he has been somewhat stuck at this 40 mg p.o. twice daily dosing.? Also he had been on several medications back then and polypharmacy was a concern but he has been able to decrease some of those medications.? We reviewed his records and identified his 10/03/2022 outpatient evaluation from [facility] as being a comprehensive exploration of his history and excerpt is included below. Per his 10/03/2022 [facility] inpatient psychiatric discharge summary: Discharge Diagnosis (1) Suicidal ideation:? ? ? Status: Acute (2) Auditory hallucinations:? ? ? Status: Acute (3) Schizoaffective disorder, depressive type:? ? ? Status: Chronic Reason for Visit Reason for Visit:??SI? Brief History: Real Black is a 31 year old male admitted to the neuropsychiatry unit for the following report. Mr. Black is a 31-year-old male with history of schizoaffective disorder presenting to the emergency department due to suicidal ideation and hallucinations.? He reports history of similar however had been doing well.? Symptoms started yesterday morning without known specific provoking factor.? He reports compliance with medication regimen and denies other associated significant changes in related depressive symptoms.? Intensity of hallucinations have been worsening.? They tell him to hurt himself.? He has had increased thoughts of hurting himself because of these voices.? Otherwise denies medical complaints.? No other specific changes in health, exacerbating, or alleviating factors identified. He was admitted to the neuropsychiatry unit for definitive treatment of these issues.? He is well known to this unit with multiple admissions.? The last admission was in June and at that time we changed him from Geodon to Invega and increased his Wellbutrin to 300 mg daily.? He feels like those changes have been working well.? He denies anything that could precipitate a worsening of his auditory hallucinations.? He says he occasionally has flareups of his hallucinations but this is much worse than normal.? He has been generally doing well since he left the hospital in June.? He reported to his therapist and psychiatric nurse practitioner that he had been doing well in recent appointments.? He denies any drug use.? He denies any stress [place].? He denies any family stress.? He says that he has been compliant with medications.? His mood has been fairly good.? He requested that his Invega be increased.? I agreed to do that for a couple of days and then reevaluate. Hospital Course He slowly acclimated to the individual, group and milieu therapies provided.? He was continued on his medications except for Invega was gradually increased to 9 mg in the morning and 6 mg at bedtime.? He had urinary incontinence on 6 mg twice a day and Cogentin was added.? He had a similar problem with Geodon.? We talked about trying a different antipsychotic but he felt that Invega was good for him and wanted to try that with the Cogentin and increase the dose.? He tolerated these doses and showed steady improvement during his stay. ? He was able to contract for safety outside hospital prior to discharge.? During the hospitalization, patient had routine laboratory studies which were within normal limits except for few outliers.? Additionally there was a general medical evaluation which was also within normal limits and revealed no new acute processes. Discharge Summary: At the time of discharge, lethality was denied and psychosis was resolving.? Mood and anxiety were well managed.? Patient endorsed a plan to follow-up with the aftercare recommendations of the treatment team.? Patient was evaluated and deemed to be absent credible lethality, and had achieved the maximum benefit from an inpatient hospitalization, so was discharged. Per his 07/07/2020 [facility] outpatient psychiatric evaluation: [facility] History and Physical Time In: 13:56 Time Out: 14:57 Chief Complaint: here for therapy and medications History of Present Illness: Information retrieved and edited from [facility] Comp. Clinical Assessment completed on: 05/26/20: anxiety and nervousness, wants therapy and medication management; moved here from [place]. Currently living at [facility], since 04/29/20. Before this arrangement, he was in [place],? 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 He has moved several times back and forth from [place] to [place]. He is hoping his father will retire and his parents will move to [place]; they have a farm in [place]. Real had services with [facility] in 2016. Says he was inpatient due to his voices getting bad and he was suicidal. He says his current diagnosis are bipolar and now he is diagnosed with schizoaffective disorder; he is currently on medications. He is not aware if anyone in his family has bipolar or schizophrenia. He has had suicidal thoughts, chronic in nature. He tried to end his life in 2012 by hanging, reports the rope broke; previously held scissors to his throat; a cousin called him and that is what stopped him from doing it. He lived at [facility](assisted living facility in [place]) for four years, then moved to his Mom's friend's home in [place], [place]. Says he was referred to [facility] by friends of the [facility]. Reported symptoms difficulty concentrating, thoughts hard to dismiss, annoyed and irritable, nervous feeling, worries and fears. Reported symptoms difficulty concentrating, thoughts hard to dismiss, annoyed and irritable, nervous feeling, worries and fears.? Denied fatigue, pains, headache, or digestive problems. Current habits: Drinks 3 large glasses of tea per day; sometimes drinks 2 cups of coffee in the morning and 3 sodas during the day.? Currently reports he sleeps from about midnight or 1 AM up until about 8 or 9 AM; usually obtains about 5 to 6 hours of rest during that time.? He rarely takes a nap in the day.? Sometimes skips breakfast, and usually eats lunch or dinner.? He tries to walk 2 or 3 times per week (up to 1 and half to 2 miles at a time) for physical exercise. History Past Psychiatric History:? Information retrieved and edited from [facility] Comp. Clinical Assessment completed on: 05/26/20:? Real had services with [facility] in 2016; dx were: F25.1 Schizoaffective DO, Depressed Type; F15.20 Methamphetamine Use Disorder; he has had several NPU stays at [facility]; refer to chart. Most recent inpatient hospitalization was from? 06/12/20 to 06/15/20;included suicidal ideation; depressive disorder; and schizoaffective disorder. Real says hospitalization was due to his voices getting bad and he felt suicidal.? History of chronic suicidal thoughts with a history of suicide gesture/attempt including: He tried to end his life in 2012 by hanging; the rope broke, he had scissors held to his throat; says a cousin called him and that is what stopped him from doing it. Real says every now and then his voices act up. He says he has one unrecognized male voice which tells him to do bad stuff to himself, but not to anyone else.? Usually has increased depression and anxiety in the afternoon, usually from 2 PM to 5 PM.? Reports he can a good day, and then out of the blue he doesn?t feel like doing anything; he feels worthless and down in the dumps for no reason; he says every now and then something may trigger it. He has anger problems and when he gets mad at himself, he has hurt himself in the past; hx of cutting; last time he cut himself was in 2018. He used a knife; was cutting his wrist, but hasn't cut deeply enough to be in the hospital. He expressed inability to concentrate, difficulty completing tasks, delayed responses during conversations.? Says he had ADHD as a child; reported that he attended special classes, and took Concerta, Ritalin, and Adderall.? Says the medication was beneficial at school, but usually wore off by the time he got home.? Says he is able to control ADHD symptoms as an adult. Family History: Information retrieved and edited from [facility] Comp. Clinical Assessment completed on: 05/26/20 Family Psychiatric History: Anxiety and Depression History of Suicide in the Family: No Family history of substance abuse: Alcohol (father) Past Medical History: Information retrieved and edited from [facility] Comp. Clinical Assessment completed on: 05/26/20 Primary Care Provider: Yes (Dr. Flowers); last physical exam: Within past year (05.07.20) Client's Medical History: No major medical illness Surgical Procedure: Tonsillectomy; history of foot fracture Substance Use History: Information retrieved and edited from [facility] Comp. Clinical Assessment completed on: 05/26/20 Client history of substance abuse: Alcohol (yes) Age of onset (years): 13 Pattern of use: denied current use and has not used in 3 years; Cannabis (yes) Age of onset (years): 19 Pattern of use: denied current use; has not used in 3 years ; Amphetamine (yes) Age of onset (years): 21 Pattern of use: (previous snorting and smoking it );denied current use; has not used in 3 years; Nicotine (yes) Age of onset (years): 19 Pattern of use: current use: 1 ppd Client?s drug and/or alcohol use in the last 30 days: No Social History: Information retrieved and edited from [facility] Comp. Clinical Assessment completed on: 05/26/20 Childhood history: Real was born in [place]; at age [age], his parents moved? near [place], [place]. When he was in 5th grade, he moved to [place]. He graduated high school, then moved to [place], [place]. He says he has a good childhood; his parents were in the home growing up and are still together. He is an only child. He is single; has no children. 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 History: Client denies service Abilities/Interests: tries to stay busy, likes to help others; he loves being outside; listens to music Legal Status/History: Current legal issues denied; denies previous arrests incarceration. Spiritual Pursuits: Other (he prays) Highest Education Level Reached: college (12th grade; reports he had ADHD in school and was on meds.) Academic Performance: Performance at grade level Hospital Course Hospital Course He acclimated to the individual, group and milieu therapies provided. When he presented he was having psychosis despite having received his monthly Abilify Maintena injection. Oral Abilify was started to augment his monthly injection and that was titrated to 15 mg p.o. daily. He worked with the social work team to establish continued outpatient resources as well as make appropriate outpatient appointments. He had significant improvement during the hospitalization and was able to contract for safety outside of the hospital prior to discharge. During the hospitalization, the patient had routine laboratory studies which were within normal limits except for a few outliers.? Additionally, there was a general medical evaluation which was also within normal limits and revealed no new acute processes.? At the time of discharge, lethality was denied and psychosis was resolving.? Mood and anxiety were well managed.? The patient endorsed a plan to avoid all drugs of abuse and follow up with the aftercare recommendations of the treatment team.? The patient was evaluated and deemed to be absent credible lethality and had achieved the maximum benefit from an inpatient hospitalization, and so was discharged.? Meds NPU Home Medications Medication Instructions Recorded Confirmed Last Taken Type acetaminophen 500 mg tablet 1,000 mg PO Q6H PRN Pain 08/03/20 05/10/23 11/04/20 09:00 History (Tylenol Extra Strength) metoprolol succinate 25 mg 25 mg PO DAILY@12/15/20 05/10/23 03/18/23 History tablet,extended release 24 hr omeprazole 20 mg capsule,delayed 20 mg PO DAILY@16 09/28/21 05/10/23 03/18/23 History release levothyroxine 100 mcg tablet 100 mcg PO DAILY@11/17/22 05/10/23 03/18/23 History (Levoxyl) lisinopril 10 mg tablet 10 mg PO DAILY@11/17/22 05/10/23 05/04/23 History loperamide 2 mg capsule 2 mg PO DAILY PRN Diarrhea 11/17/22 05/10/23 Unknown History methocarbamol 750 mg tablet 750 mg PO Q6H PRN spasms #20 tabs 04/24/23 05/10/23 Unknown Rx aripiprazole 15 mg tablet 15 mg PO DAILY 30 days #30 tabs 05/05/23 05/10/23 03/23/23 Rx aripiprazole 400 mg intramuscular 400 mg IM Q28D #1 ea 05/05/23 05/10/23 05/03/23 Rx suspension,extended release (Abilify Maintena) bupropion HCl 300 mg 24 hr tablet, 300 mg PO DAILY 30 days #30 tabs 05/05/23 05/10/23 03/23/23 Rx extended release divalproex 500 mg tablet,extended 1,000 mg (2 x 500 mg) PO 05/05/23 05/10/23 Unknown Rx release 24 hr BEDTIME@20 #60 tabs hydroxyzine pamoate 25 mg capsule 25 mg PO BID PRN Anxiety #60 caps 05/05/23 05/10/23 03/23/23 Rx melatonin 3 mg tablet See Rx Instructions PO BEDTIME@20 05/05/23 05/10/23 Unknown Rx PRN sleep #60 tabs quetiapine 100 mg tablet 100 mg PO DAILY PRN psychosis #10 05/05/23 05/10/23 Unknown Rx tabs trazodone 50 mg tablet 50 mg PO BEDTIME PRN Sleep 30 days 05/05/23 05/10/23 Unknown Rx #30 tabs aripiprazole 400 mg suspension, 400 mg IM 05/10/23 Unknown History extended rel.intramuscular syringe (Abilify Maintena) aripiprazole 400 mg suspension, 400 mg IM ONCE 05/10/23 05/10/23 Unknown History extended rel.intramuscular syringe (Abilify Maintena) Allergies Allergy/AdvReac Type Severity Reaction Status Date / Time chlorpromazine Allergy Severe ALGY-Anaphy Verified 05/10/23 00:53 laxis haloperidol [From Haldol] Allergy Severe ALGY-Swell Verified 05/10/23 00:53 Lip/Tongue/Throat lurasidone [From Latuda] Allergy Severe ALGY-Swell Verified 05/10/23 00:53 Lip/Tongue/Throat olanzapine [From Zyprexa] Allergy Severe ALGY-Swell Verified 05/10/23 00:53 Lip/Tongue/Throat PFSH NPU PFSH: Medical History Psychiatric care Schizoaffective disorder, depressive type Depressive disorder Hallucination Family History Other Diabetes Hypertension Schizoaffective disorder, depressive type Social History Smoking and tobacco/nicotine status: former use of tobacco/nicotine Quit status (tobacco/nicotine): has quit using Year quit tobacco: 150 days? Second hand smoke exposure: Yes Alcohol intake: never Substance/Drug Use: never Adopted: No Caregiver/support person: Yes (sets up his medication) Lives independently: No (St[facility] at [facility] Household members: other Details: Multiple other residents at the facility. Housing: Assisted Living Facility Marital status: Single Number of children: 0 Number of grandchildren: 0 Highest education level completed: High School Graduate service: No Current occupational status: disabled Current occupational exposures/hazards: No Pets and animals: Yes Pets & animals: cat(s) Leisure activites: exercise, music, games and other Leisure activities details: watch TV Sexually active: Yes How many partners: 1 Are you practicing safe sex: No Do you think of yourself as: Straight/Heterosexual Current gender identity: Male Paola/Confucianism: Zoroastrianism Special paola needs: No Agree to transfusion: Yes Mental Status Exam MSE Comments: This is an obese white male who presents in hospital scrubs with poor grooming and fleeting eye contact. No abnormal movements other than mild psychomotor retardation. He was cooperative with exam and in moderate distress. Speech was diminished in rate and normal in prosody and volume with increase in speech latency evident. Mood described as a little down. His affect remained blunted. Thought process was mostly organized, thought content: Patient endorsed having command auditory hallucinations telling him to hurt self. there are no delusions reported or noted, he endorsed command auditory hallucinations telling him to harm himself. He denied visual hallucinations. Attention and concentration appeared intact and memory appeared reliable but never formally tested. He is alert and oriented x3. Insight and judgment appear fair, impulse control appears limited. 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 Plan: 1. Continue abilify to 15mg daily in addition to Abilify maintena prescribed monthly. 2. Continue every 15 minute checks for safety. 3. Encourage individual, group and milieu therapies. 4. Encourage sober living treatment after discharge at the highest level of care to which he is willing to commit. 5. Continue wellbutrin xl 300mg in am and depakote as prescribed. 6. Records reviewed in detail on outpatient basis, appears patient had done well on oral invega but it was discontinued 1 year ago due to polypharmacy issues. May consider replacing oral abilify with invega at lower dose. Involuntary Hold Information 96 Hour Hold: 96 Hour Involuntary Admission: No Attestations NPU Medical Necessity Statement*: Inpatient hospitalization is medically necessary and the clinically appropriate intervention at this time. We will initiate medications and make changes as indicated. He will be in the hospital for over 2 midnights. His likely length of stay 4-6 days. Coding Level of Care Code Acute Code for [facility] Diagnoses Schizoaffective disorder, depressive type F25.1 Suicidal ideation R45.851 Auditory hallucinations R44.0
[2023-05-10] MEDS: divalproex ER 500 mg Tablet (24H) 1000 MG PO (19:50)
[2023-05-10 20:52] VITALS: BP 153/84; PULSE 98; RESP 18; TEMP 36.4; O2SAT 95
[2023-05-11 06:00] VITALS: RESP 16
--- NOTE | 2023-05-11 06:46 | PC.NURSE ---
Patient resting. RR obtained
[2023-05-11] MEDS: metoprolol succinate ER (24 HR) 25 mg Tablet PO (08:04)
[2023-05-11] MEDS: ARIPiprazole 10 mg Tablet 15 MG PO (08:04)
[2023-05-11] MEDS: levothyroxine 100 mcg Tablet PO (08:05)
[2023-05-11] MEDS: pantoprazole DR 40 mg Tablet PO (08:05)
[2023-05-11] MEDS: lisinopril 10 mg Tablet PO (08:05)
[2023-05-11] MEDS: buPROPion XL (24 HR) 300 mg Tablet PO (08:05)
[2023-05-11] MEDS: hyDROXYzine 25 mg Capsule 50 MG PO ×2 (08:47→20:13)
[2023-05-11] MEDS: benztropine 1 mg Tablet PO (13:38)
[2023-05-11] MEDS: ziprasidone hcl 20 mg Capsule PO ×2 (13:39→21:27)
[2023-05-11 14:00] VITALS: BP 143/73; PULSE 109; RESP 20; TEMP 36.6; O2SAT 94
--- NOTE | 2023-05-11 17:14 | W.PM.NPUPNS ---
Subjective NPU Subjective: 32-year-old male with a history of schizoaffective disorder admitted with command auditory hallucinations while residing in the [facility] facility. He had reported that the voices continued to remain present. He had continued to report that he was distracted by his thoughts. He had reported that his anxiety was high. He had at times reported feeling overwhelmed by the intensity of the voices and reported that he did not like the way the voices degraded him. Mental Status Exam MSE Comments: This is an obese white male who presents in hospital scrubs with poor grooming and fleeting eye contact. No abnormal movements other than mild psychomotor retardation. He was cooperative with exam and in moderate distress. Speech was diminished in rate and normal in prosody and volume with continued increase in speech latency evident. Mood described as stressed. His affect remained blunted. Thought process was mostly organized, thought content: Patient endorsed having command auditory hallucinations telling him to hurt self. There are no delusions reported or noted, He endorsed command auditory hallucinations telling him to harm himself. He denied visual hallucinations. Attention and concentration appeared intact and memory appeared reliable but never formally tested. He is alert and oriented x3. Insight and judgment appear fair, impulse control appears limited. Vitals/I&O/Wt Last Vital Signs Temp 98 F 05/11/23 14:00 Pulse 109 H 05/11/23 14:00 Resp 20 H 05/11/23 14:00 BP 143/73 05/11/23 14:00 Pulse Ox 94 05/11/23 14:00 O2 Del Method Room Air 05/10/23 20:52 Weight last 48 hrs Weight 104.326 kg Data NPU 05/10/23 00:55 05/10/23 00:55 A&P Assessment and plan (1) Schizoaffective disorder, depressive type: (2) Suicidal ideation: (3) Auditory hallucinations: Plan This is a 32-year-old white male known to the scientific technical writer with a long history of psychosis and mental health challenges who presents with a significant increase in auditory hallucinations despite compliance with Abilify Maintena, oral abilify and depakote. Plan: 1. Abilify maintena will continue, will begin taper of abilify oral with decrease to 5mg daily. Will begin invega oral 3mg daily to be taken with abilify IM. Previous records had shown improvement in past on invega oral with no hx of invega IM use. 2. Continue every 15 minute checks for safety. 3. Encourage individual, group and milieu therapies. 4. Encourage sober living treatment after discharge at the highest level of care to which he is willing to commit. 5. Continue wellbutrin xl 300mg in am and depakote as prescribed. Involuntary Hold Information 96 Hour Hold: 96 Hour Involuntary Admission: No Attestations NPU Medical Necessity Statement*: Inpatient hospitalization is medically necessary and the clinically appropriate intervention at this time. We will initiate medications and make changes as indicated. His likely length of stay 4-6 days. Coding Level of Care Code Acute Code for [facility] Diagnoses Schizoaffective disorder, depressive type F25.1 Suicidal ideation R45.851 Auditory hallucinations R44.0
[2023-05-11] MEDS: ibuprofen 600 mg Tablet PO (17:56)
[2023-05-11] MEDS: trazodone 50 mg Tablet PO ×2 (20:12→22:17)
[2023-05-11] MEDS: divalproex ER 500 mg Tablet (24H) 1000 MG PO (20:12)
[2023-05-11 20:36] VITALS: BP 134/78; PULSE 109; RESP 18; TEMP 36.4; O2SAT 97
--- NOTE | 2023-05-11 22:18 | PC.NURSE ---
while doing a round, this pt approached this nurse and stated I am feeling suicidal. Pt stated that he did not have any sort of plan but just had an onset feeling of SI. Pt did contract for safety with this nurse. scarf and anneal operator notified.
[2023-05-12 06:00] VITALS: BP 127/81; PULSE 105; RESP 18; TEMP 36.2; O2SAT 95
[2023-05-12] MEDS: ARIPiprazole 10 mg Tablet 5 MG PO (08:25)
[2023-05-12] MEDS: buPROPion XL (24 HR) 300 mg Tablet PO (08:25)
[2023-05-12] MEDS: levothyroxine 100 mcg Tablet PO (08:25)
[2023-05-12] MEDS: metoprolol succinate ER (24 HR) 25 mg Tablet PO (08:25)
[2023-05-12] MEDS: lisinopril 10 mg Tablet PO (08:25)
[2023-05-12] MEDS: pantoprazole DR 40 mg Tablet PO (08:26)
[2023-05-12] MEDS: paliperidone ER 3 mg Tablet PO (08:27)
[2023-05-12] MEDS: hyDROXYzine 25 mg Capsule 50 MG PO ×2 (09:17→21:24)
[2023-05-12] MEDS: ibuprofen 600 mg Tablet PO (13:37)
[2023-05-12 14:00] VITALS: BP 146/79; PULSE 93; RESP 16; TEMP 36.6; O2SAT 98
[2023-05-12] MEDS: trazodone 50 mg Tablet PO ×2 (20:10→21:24)
[2023-05-12] MEDS: divalproex ER 500 mg Tablet (24H) 1000 MG PO (20:10)
[2023-05-12 20:25] VITALS: BP 127/86; PULSE 112; RESP 18; TEMP 36.4; O2SAT 96
[2023-05-13 06:00] VITALS: BP 139/90; PULSE 99; RESP 18; O2SAT 99
[2023-05-13 08:00] VITALS: BP 127/86; PULSE 112; RESP 18; TEMP 36.4; O2SAT 96
[2023-05-13] MEDS: buPROPion XL (24 HR) 300 mg Tablet PO (08:17)
[2023-05-13] MEDS: paliperidone ER 3 mg Tablet PO ×2 (08:17→20:37)
[2023-05-13] MEDS: pantoprazole DR 40 mg Tablet PO (08:17)
[2023-05-13] MEDS: levothyroxine 100 mcg Tablet PO (08:17)
[2023-05-13] MEDS: ARIPiprazole 10 mg Tablet 5 MG PO (08:17)
[2023-05-13] MEDS: metoprolol succinate ER (24 HR) 25 mg Tablet PO (08:19)
[2023-05-13] MEDS: lisinopril 10 mg Tablet PO (08:19)
[2023-05-13] MEDS: ibuprofen 600 mg Tablet PO ×2 (08:50→17:05)
--- NOTE | 2023-05-13 13:59 | P.NPUDS_ITS ---
Diagnoses at Discharge Discharge Diagnosis (1) Schizoaffective disorder, depressive type: Status: Chronic (2) Suicidal ideation: Status: Resolved (3) Auditory hallucinations: Status: Resolved Reason for Visit Reason for Visit: SI Involuntary Hold Information 96 Hour Hold: 96 Hour Involuntary Admission: No Discharge Data Studies Completed and Pending: Laboratory Results WBC 7.80 10^3/uL (3.2 9-11.43) 05/10/23 00:55 RBC 4.86 10^6/uL (3.8 5-5.65) 05/10/23 00:55 Hgb 15.10 g/dL (11.27 -16.99) 05/10/23 00:55 Hct 44.4 % (37-53) 05/10/23 00:55 MCV 91.4 fl (82-101) 05/10/23 00:55 MCH 31.1 pg (27-33) 05/10/23 00:55 MCHC 34.0 g/dL (30-55) 05/10/23 00:55 RDW 12.7 % (12.1-15.1 ) 05/10/23 00:55 Plt Count 226 10^3/cmm (157 -399) 05/10/23 00:55 MPV 9.4 fL (7.4-10.4) 05/10/23 00:55 Neut % (Auto) 55.4 % 05/10/23 00:55 Lymph % (Auto) 36.4 % 05/10/23 00:55 [place] % (Auto) 6.5 % 05/10/23 00:55 Eos % (Auto) 1.0 % 05/10/23 00:55 Baso % (Auto) 0.4 % 05/10/23 00:55 Neut # (Auto) 4.32 10^3/uL (1.8 -7.7) 05/10/23 00:55 Lymph # (Auto) 2.8 10^3/uL (0.8- 4.8) 05/10/23 00:55 [place] # (Auto) 0.5 10^3/uL (0.2- 0.9) 05/10/23 00:55 Eos # (Auto) 0.1 10^3/uL (0.0- 0.8) 05/10/23 00:55 Baso # (Auto) 0.0 10^3/uL (0.0- 0.1) 05/10/23 00:55 Nucleated RBC % (a uto) 0 % 05/10/23 00:55 Nucleated RBCs # 0.0 /100WBC 05/10/23 00:55 Sodium 137 mmol/L (136-1 45) 05/10/23 00:55 Potassium 4.3 mmol/L (3.5-5 .1) 05/10/23 00:55 Chloride 102 mmol/L (98-10 7) 05/10/23 00:55 Carbon Dioxide 21 mmol/L (22-29) L 05/10/23 00:55 Anion Gap 18.3 (5-19) 05/10/23 00:55 BUN 12 mg/dL (6-20) 05/10/23 00:55 Creatinine 0.8 mg/dL (0.7-1. 2) 05/10/23 00:55 GFR Calculation 112.8 mL/min (90- 130) 05/10/23 00:55 Glucose 103 mg/dL (65-115 ) 05/10/23 00:55 Calculated Osmolal ity 284 mOsm/kg (285- 295) L 05/10/23 00:55 Calcium 8.9 mg/dL (8.5-10 .5) 05/10/23 00:55 Total Bilirubin 0.2 mg/dL (0.15-1 .2) 05/10/23 00:55 AST 17 U/L (0-40) 05/10/23 00:55 ALT 40 U/L (0-41) 05/10/23 00:55 Alkaline Phosphata se 31 U/L (40-130) L 05/10/23 00:55 Total Protein 7.2 g/dL (6.6-8.7 ) 05/10/23 00:55 Albumin 4.2 g/dL (3.5-5.2 ) 05/10/23 00:55 Globulin 3.0 g/dL (1.3-4.6 ) 05/10/23 00:55 TSH 3.33 uIU/mL (0.27 -4.20) 05/10/23 00:55 Urine Color Yellow (Yellow) 05/10/23 00:58 Urine Appearance Clear (CLEAR) 05/10/23 00:58 Urine pH 5 (5-7) 05/10/23 00:58 Ur Specific Gravit y 1.015 (1.005-1.0 30) 05/10/23 00:58 Urine Protein Neg (Negative) 05/10/23 00:58 Urine Glucose (UA) Norm (Normal) 05/10/23 00:58 Urine Ketones Negative (Negati ve) 05/10/23 00:58 Urine Blood Neg (Negative) 05/10/23 00:58 Urine Nitrate Negative (Negati ve) 05/10/23 00:58 Urine Bilirubin Neg (Negative) 05/10/23 00:58 Urine Urobilinogen Norm mg/dL (Negat bryan) 05/10/23 00:58 Ur Leukocyte Unique ase Negative (Negati ve) 05/10/23 00:58 Salicylates < 0.3 mg/dL (3-10 ) L 05/10/23 00:55 Urine Opiates Scre en Negative ng/mL (N egative) 05/10/23 00:58 Acetaminophen < 5.0 ug/mL (10-3 0) L 05/10/23 00:55 Ur Barbiturates Sc reen Negative ng/mL (N egative) 05/10/23 00:58 Valproic Acid 35.5 ug/mL (50-10 0) L 05/10/23 00:55 Ur Phencyclidine S crn Negative ng/mL (N egative) 05/10/23 00:58 Ur Amphetamines Sc reen Negative ng/mL (N egative) 05/10/23 00:58 U Benzodiazepines Scrn Negative ng/mL (N egative) 05/10/23 00:58 Urine Cocaine Scre en Negative ng/mL (N egative) 05/10/23 00:58 U Marijuana (THC) Screen Positive ng/mL (N egative) H 05/10/23 00:58 Ethyl Alcohol < 10 mg/dL (0-10) 05/10/23 00:55 Vitals: Last Vital Signs Temp 97.5 F L 05/13/23 08:00 Pulse 112 H 05/13/23 08:00 Resp 18 05/13/23 08:00 BP 127/86 05/13/23 08:00 Pulse Ox 96 05/13/23 08:00 O2 Del Method Room Air 05/13/23 08:00 Discharge Plan Discharge Patient Disposition: Home Condition: Stable Prescriptions: No Action acetaminophen [Tylenol Extra Strength] 500 mg tablet 1,000 mg PO Q6H PRN (Reason: Pain) bupropion HCl 300 mg tablet extended release 24 hr 300 mg PO DAILY 30 Days Qty: 30 1RF aripiprazole 15 mg tablet 15 mg PO DAILY 30 Days Qty: 30 1RF divalproex 500 mg tablet extended release 24 hr 1,000 mg PO BEDTIME@20 Qty: 60 1RF Rx Instructions: Taking 2 tablets daily at bedtime at 8 PM hydroxyzine pamoate 25 mg capsule 25 mg PO BID PRN (Reason: Anxiety) Qty: 60 1RF Rx Instructions: Take 1 capsule twice daily, if needed for anxiety trazodone 50 mg tablet 50 mg PO BEDTIME PRN (Reason: Sleep) 30 Days Qty: 30 1RF melatonin 3 mg tablet See Rx Instructions PO BEDTIME@20 PRN (Reason: sleep) Qty: 60 1RF Rx Instructions: Take one or two tablets at bedtime, if needed for sleep Abilify Maintena 400 mg suspension,extended rel recon 400 mg IM Q28D Qty: 1 5RF Rx Instructions: Administer one IM injection (400 mg) every 28 to 30 days quetiapine 100 mg tablet 100 mg PO DAILY PRN (Reason: psychosis) Qty: 10 0RF Rx Instructions: Take 1 tablet daily, if needed for psychosis during the last week of Abilify Maintena cycle metoprolol succinate 25 mg tablet extended release 24 hr 25 mg PO DAILY@07 loperamide 2 mg capsule 2 mg PO DAILY PRN (Reason: Diarrhea) levothyroxine [Levoxyl] 100 mcg tablet 100 mcg PO DAILY@07 lisinopril 10 mg tablet 10 mg PO DAILY@07 methocarbamol 750 mg tablet 750 mg PO Q6H PRN (Reason: spasms) Qty: 20 0RF omeprazole 20 mg Capsule,Delayed Release(Dr/Ec) 20 mg PO DAILY@16 Abilify Maintena 400 mg suspension,extended rel syring 400 mg IM ONCE Referrals: Patria Mckinney APRN [Nurse Practitioner] - Sp Flowers MD [Primary Care Provider] - Yesica Nguyen LMSW [Therapist] - Patient Instructions: Opioid Safety Discharge Attestations NPU Status at Discharge: Cognitive status at discharge: cognitively intact , Behavioral status at discharge: cooperative , Coding Level of Care Code Acute Code for [facility] Diagnoses Schizoaffective disorder, depressive type F25.1 Suicidal ideation R45.851 Auditory hallucinations R44.0
[2023-05-13 14:00] VITALS: BP 112/72; PULSE 105; RESP 18; TEMP 36.7; O2SAT 96
--- NOTE | 2023-05-13 14:36 | P.NPUPN_ITS ---
Subjective NPU 2 Subjective: 32-year-old male with a history of schizoaffective disorder admitted with command auditory hallucinations while residing in the [facility] facility. He continued to report being distracted by hallucinations. He had expressed some continued worry about his future. He had reported that he continued to be distracted by voices telling him to hurt himself. The patient reported no side effects from his medications. He had continued to isolate himself on the milieu while spending much of the afternoon pacing the hallways. He reported adequate sleep. Mental Status Exam 2 MSE Comments: This is an obese white male who presents in hospital scrubs with improved grooming and fleeting eye contact. No abnormal movements other than mild psychomotor retardation. He was cooperative with exam and appeared in moderate distress. Speech was diminished in rate and normal in prosody and volume with contined evidence of speech latency. Mood described as okay. His affect appeared odd and subdued. Thought process was mostly organized, thought content: Patient endorsed having command auditory hallucinations telling him to hurt self. There are no delusions reported or noted, He endorsed command auditory hallucinations telling him to harm himself. He did appear to be responding to internal stimuli. He denied visual hallucinations. Attention and concentration appeared intact and memory appeared reliable but never formally tested. He is alert and oriented x3. Insight and judgment appeared limited, impulse control appears limited. Vitals/I&O/Wt Last Vital Signs Temp 97.5 F L 05/13/23 08:00 Pulse 112 H 05/13/23 08:00 Resp 18 05/13/23 08:00 BP 127/86 05/13/23 08:00 Pulse Ox 96 05/13/23 08:00 O2 Del Method Room Air 05/13/23 08:00 Data NPU 05/10/23 00:55 05/10/23 00:55 A&P Assessment and plan (1) Schizoaffective disorder, depressive type: (2) Suicidal ideation: (3) Auditory hallucinations: Plan This is a 32-year-old white male known to the assembly instructions writer with a long history of psychosis and mental health challenges who presents with a significant increase in auditory hallucinations despite compliance with Abilify Maintena, oral abilify and depakote. Plan: 1. Abilify maintena will continue. D/C abilify and titrate invega up to 6mg daily 2. Continue every 15 minute checks for safety. 3. Encourage individual, group and milieu therapies. 4. Encourage sober living treatment after discharge at the highest level of care to which he is willing to commit. 5. Continue wellbutrin xl 300mg in am and depakote as prescribed. Involuntary Hold Information 2 96 Hour Hold: 96 Hour Involuntary Admission: No Attestations NPU 2 Medical Necessity Statement*: Inpatient hospitalization is medically necessary and the clinically appropriate intervention at this time. We will initiate medications and make changes as indicated. His likely length of stay 4-6 days. Coding Level of Care Code Acute Code for [facility] Fwd Diagnoses Schizoaffective disorder, depressive type F25.1 Suicidal ideation R45.851 Auditory hallucinations R44.0
[2023-05-13] MEDS: hyDROXYzine 25 mg Capsule 50 MG PO ×2 (17:32→21:29)
[2023-05-13] MEDS: acetaminophen 325 mg Tablet 650 MG PO (18:36)
[2023-05-13] MEDS: trazodone 50 mg Tablet PO ×2 (20:37→21:29)
[2023-05-13] MEDS: divalproex ER 500 mg Tablet (24H) 1000 MG PO (20:37)
[2023-05-13] MEDS: ziprasidone hcl 20 mg Capsule PO (21:06)
[2023-05-13 22:00] VITALS: BP 139/87; PULSE 106; RESP 18; TEMP 36.3; O2SAT 93
[2023-05-14 06:00] VITALS: BP 153/95; PULSE 97; RESP 16; O2SAT 94
[2023-05-14] MEDS: metoprolol succinate ER (24 HR) 25 mg Tablet PO (08:18)
[2023-05-14] MEDS: levothyroxine 100 mcg Tablet PO (08:18)
[2023-05-14] MEDS: lisinopril 10 mg Tablet PO (08:19)
[2023-05-14] MEDS: buPROPion XL (24 HR) 300 mg Tablet PO (08:19)
[2023-05-14] MEDS: pantoprazole DR 40 mg Tablet PO (08:50)
[2023-05-14] MEDS: hyDROXYzine 25 mg Capsule 50 MG PO (09:37)
--- NOTE | 2023-05-14 09:38 | PC.NURSE ---
PT REQUESTED PRN ANXIETY MEDICATIONS. PT RATES ANXIETY 7/10 ON A SCALE OF 0-10 WHERE 0 IS NONE AT ALL AND 10 IS THE WORST. PT RECEIVED 50 MG OF HYDROXYZINE.
--- NOTE | 2023-05-14 12:12 | P.NPUPN_ITS ---
Subjective NPU 2 Subjective: 32-year-old male with a history of schizoaffective disorder admitted with command auditory hallucinations while residing in the [facility] facility. The patient had complained of hearing voices throughout the night but stated that he woke up today feeling that his voices had been quieter. He had reported feeling more hopeful about his future. He reported no side effects from his current medications. He reported that he was not feeling as depressed. He stated that he was no longer hearing a voice telling him to hurt himself as he stated that his voices were faint. He had been less isolative today. He continued to pace the hallways at times but stated that he was not worrying as much today. Mental Status Exam 2 MSE Comments: This is an obese white male who presents in hospital scrubs with improved grooming and fleeting eye contact. No abnormal movements other than mild psychomotor retardation. He was cooperative with exam and appeared in mild distress. Speech was diminished in rate and normal in prosody and volume with continued evidence of speech latency. Mood described as better. His affect appeared less restricted today. Thought process was linear and mostly organized, thought content: Patient denied auditory hallucinations today. There are no delusions reported or noted, He did appear to be responding to internal stimuli. He denied visual hallucinations. Attention and concentration appeared intact and memory appeared reliable but never formally tested. He is alert and oriented x3. Insight and judgment appeared limited, impulse control appears limited. Vitals/I&O/Wt Last Vital Signs Temp 97.3 F L 05/13/23 22:00 Pulse 97 05/14/23 06:00 Resp 16 05/14/23 06:00 BP 153/95 05/14/23 06:00 Pulse Ox 94 05/14/23 06:00 O2 Del Method Room Air 05/14/23 06:00 Weight last 48 hrs Weight 105.687 kg Data NPU 05/10/23 00:55 05/10/23 00:55 A&P Assessment and plan (1) Schizoaffective disorder, depressive type: (2) Suicidal ideation: (3) Auditory hallucinations: Plan This is a 32-year-old white male known to the signwriter with a long history of psychosis and mental health challenges who presents with a significant increase in auditory hallucinations despite compliance with Abilify Maintena, oral abilify and depakote. Plan: 1. Abilify maintena will continue. Invega 6mg at night. Continue Depakote 1000mg at night. 2. Continue every 15 minute checks for safety. 3. Encourage individual, group and milieu therapies. 4. Encourage sober living treatment after discharge at the highest level of care to which he is willing to commit. 5. Continue wellbutrin xl 300mg in am and depakote as prescribed. Involuntary Hold Information 2 96 Hour Hold: 96 Hour Involuntary Admission: No Attestations NPU 2 Medical Necessity Statement*: Inpatient hospitalization is medically necessary and the clinically appropriate intervention at this time. We will initiate medications and make changes as indicated. His likely length of stay 2-3 days. Coding Level of Care Code Acute Code for [facility] Diagnoses Schizoaffective disorder, depressive type F25.1 Suicidal ideation R45.851 Auditory hallucinations R44.0
[2023-05-14] MEDS: ibuprofen 600 mg Tablet PO (12:38)
[2023-05-14 13:57] VITALS: BP 141/71; PULSE 113; RESP 16; TEMP 36.4; O2SAT 98
[2023-05-14] MEDS: ziprasidone hcl 20 mg Capsule PO (16:01)
--- NOTE | 2023-05-14 16:02 | PC.NURSE ---
PT SPOKE WITH THIS NURSE AND STATED IM HEARING VOICES. THIS NURSE ASKED PT WHAT THEY WERE SAYING TO HIM. PT STATED THEY ARE TELLING ME TO HURT MYSELF. PT THEN REQUESTED TO SPEAK WITH NURSE RATHER THAN TAKE MEDICATIONS. THIS NURSE SAT AND SPOKE WIT PT WHO TOLD NURSE I THOUGHT ABOUT NOT TELLING YOU ABOUT THE VOICES SO I CAN GO HOME SOON BUT I WOULD RATHER GET BETTER AND NOT HAVE TO COME BACK AGAIN. THIS NURSE EDUCATED PT THAT THIS WAS THE RIGHT DECISION AND THAT THE PHYSICIAN HAS A MEDICATION HE HAS PRESCRIBED TO HELP WITH THE VOICES. PT AGREED TO TAKING THIS MEDICATION. 20 MG OG ORAL GEODON ADMINISTERED.
--- NOTE | 2023-05-14 16:09 | PC.NURSE ---
WHEN PT WAS REEVALUATED FOR EFFECTIVNESS OF HYDROXYZINE PT STATED THAT IT WAS HELPFUL AND HIS ANXIETY WAS THEN A 3/10.
[2023-05-14 20:33] VITALS: BP 171/98; PULSE 107; RESP 20; TEMP 36.4; O2SAT 96
[2023-05-14] MEDS: divalproex ER 500 mg Tablet (24H) 1000 MG PO (21:09)
[2023-05-14] MEDS: paliperidone ER 6 mg Tablet PO (21:10)
[2023-05-15 06:00] VITALS: BP 150/79; PULSE 92; RESP 16; TEMP 36.4; O2SAT 98
[2023-05-15] MEDS: levothyroxine 100 mcg Tablet PO (07:47)
[2023-05-15] MEDS: ibuprofen 600 mg Tablet PO (07:47)
[2023-05-15] MEDS: buPROPion XL (24 HR) 300 mg Tablet PO (07:47)
[2023-05-15] MEDS: pantoprazole DR 40 mg Tablet PO (07:48)
[2023-05-15] MEDS: metoprolol succinate ER (24 HR) 25 mg Tablet PO (07:48)
[2023-05-15] MEDS: lisinopril 10 mg Tablet PO (07:48)
[2023-05-15] MEDS: hyDROXYzine 25 mg Capsule 50 MG PO (08:51)
[2023-05-15] MEDS: acetaminophen 325 mg Tablet 650 MG PO (11:48)
[2023-05-15 14:00] VITALS: BP 141/88; PULSE 104; RESP 15; TEMP 36.8; O2SAT 96
--- NOTE | 2023-05-15 15:59 | P.NPUPN_ITS ---
Subjective NPU 2 Subjective: 32-year-old male with a history of schizoaffective disorder admitted with command auditory hallucinations while residing in the [facility] facility. The patient continued to endorse that he continued to hear voices but stated that they were not telling him to hurt himself or others. He had reported feeling more anxious. He stated that he was bored and wished to go home soon. He reported improved energy. He had reported that he felt better with the combination of Invega oral and Abilify Maintena. Patient continued to pace the hallway but was more redirectable. He did at times appear to be preoccupied by his thoughts but stated that the voices were less intense. Mental Status Exam 2 MSE Comments: This is an obese white male who presents in hospital scrubs with improved grooming and fleeting eye contact. No abnormal movements other than mild psychomotor retardation. He was cooperative with exam and appeared in mild distress. Speech was diminished in rate and normal in prosody and volume with continued evidence of speech latency. Mood described as okay. Affect was blunted. Thought process was linear and mostly organized, Thought content: Patient denied auditory hallucinations today. There are no delusions reported or noted, He did appear to be responding to internal stimuli. He denied visual hallucinations. Attention and concentration appeared intact and memory appeared reliable but never formally tested. He is alert and oriented x3. Insight and judgment appeared limited, impulse control appears limited. Vitals/I&O/Wt Last Vital Signs Temp 98.2 F 05/15/23 14:00 Pulse 104 H 05/15/23 14:00 Resp 15 05/15/23 14:00 BP 141/88 05/15/23 14:00 Pulse Ox 96 05/15/23 14:00 O2 Del Method Room Air 05/15/23 06:00 Weight last 48 hrs Weight 105.687 kg Data NPU 05/10/23 00:55 05/10/23 00:55 A&P Assessment and plan (1) Schizoaffective disorder, depressive type: (2) Suicidal ideation: (3) Auditory hallucinations: Plan This is a 32-year-old white male known to the service writer with a long history of psychosis and mental health challenges who presents with a significant increase in auditory hallucinations despite compliance with Abilify Maintena, oral abilify and depakote. Plan: 1. Abilify maintena will continue. Invega 6mg at night. Continue Depakote 1000mg at night. 2. Continue every 15 minute checks for safety. 3. Encourage individual, group and milieu therapies. 4. Encourage sober living treatment after discharge at the highest level of care to which he is willing to commit. 5. Continue wellbutrin xl 300mg in am. Involuntary Hold Information 2 96 Hour Hold: 96 Hour Involuntary Admission: No Attestations NPU 2 Medical Necessity Statement*: Inpatient hospitalization is medically necessary and the clinically appropriate intervention at this time. We will initiate medications and make changes as indicated. His likely length of stay 2-3 days. Coding Level of Care Code [facility] Diagnoses Schizoaffective disorder, depressive type F25.1 Suicidal ideation R45.851 Auditory hallucinations R44.0
[2023-05-15] MEDS: divalproex ER 500 mg Tablet (24H) 1000 MG PO (19:11)
[2023-05-15] MEDS: paliperidone ER 6 mg Tablet PO (19:11)
[2023-05-15] MEDS: trazodone 50 mg Tablet PO (20:00)
[2023-05-15 20:08] VITALS: BP 155/97; PULSE 97; RESP 18; TEMP 36.3; O2SAT 97
[2023-05-16 06:00] VITALS: BP 134/87; PULSE 105; RESP 18; TEMP 36.7; O2SAT 97
[2023-05-16] MEDS: metoprolol succinate ER (24 HR) 25 mg Tablet PO (08:11)
[2023-05-16] MEDS: buPROPion XL (24 HR) 300 mg Tablet PO (08:11)
[2023-05-16] MEDS: pantoprazole DR 40 mg Tablet PO (08:11)
[2023-05-16] MEDS: lisinopril 10 mg Tablet PO (08:11)
[2023-05-16] MEDS: levothyroxine 100 mcg Tablet PO (08:11)
[2023-05-16] MEDS: ibuprofen 600 mg Tablet PO (09:57)
--- NOTE | 2023-05-16 12:56 | DCPLANNER ---
IMM completed with pt on 05/16/23 @ [id number]. Pt was given a copy of rights and he stated he understood his rights.
[2023-05-16 14:00] VITALS: BP 120/70; PULSE 114; RESP 16; TEMP 36.6; O2SAT 96
--- NOTE | 2023-05-16 14:23 | P.NPUDS_ITS ---
Diagnoses at Discharge Discharge Diagnosis (1) Schizoaffective disorder, depressive type: Status: Chronic (2) Suicidal ideation: Status: Resolved (3) Auditory hallucinations: Status: Resolved Reason for Visit Reason for Visit: SI Brief History: History of Present Illness Real Black is a 32 year old male currently residing at the [facility] who presented to the emergency department with complaints of command auditory hallucinations telling him to kill himself. He had reported that he had been compliant with his Abilify monthly injection but states that over the past 3 to 4 days he has been having more auditory hallucinations telling him to harm himself. He states that the voices are chronically present but states that they had been more manageable but approximately 1 week till his next injection of Abilify he has been having an emerging problem of increased prevalence of the hallucinations. Patient denied any homicidal ideation and reports that he is often overwhelmed. He states that a recent stressor for him had been that he had been worried about going on vacation to [place] with his family members and stated that he was under a great deal of stress. Patient was admitted to the neuropsychiatric unit for further evaluation and treatment. He reports no subst antial changes since his last hospitalization and discharged from the neuropsychiatric unit on 03/23/2023. Excerpt from NPU DISCHARGE 03/23/23 Discharge Diagnosis (1) Schizoaffective disorder, depressive type: Status: Chronic (2) Suicidal ideation: Status: Resolved (3) Auditory hallucinations: Status: Resolved Reason for Visit SI Brief History: History of Present Illness Real Black is a 32 year old male most recently hospitalized in November 2022 with a history of schizoaffective disorder who presented to the emergency department with complaints of auditory hallucinations telling him to harm himself. Patient was admitted to the neuropsychiatric unit for further diagnosis and treatment. Patient reported that he has been compliant with his medications and reports that he has recently received his monthly injection of Abilify approximately 3 days ago and states that usually his mood and his voices become quieter but reports that at this time it is not been the case. He reports that he has been hearing voices telling him to harm himself. He does endorse some depressed mood. He reports some difficulties with concentration. He had stated that he is concerned that if his medications are not adjusted that he may do something to hurt himself. Inpatient psychiatric history: Multiple inpatient hospitalizations Outpatient psychiatric history: He reports receiving CPRS services at [facility] on an outpatient basis with weekly visits Current medications: Abilify Maintena 400 mg IM every 28 days, Wellbutrin SR 200 mg daily, Depakote 1000 mg at night, hydroxyzine 25 twice a day as needed, levo thyroxine 100 mcg daily, lisinopril 10 mg daily, metoprolol 25 mg daily, omeprazole 25 mg daily, Seroquel 100 mg as needed at night Allergies: Latuda, olanzapine, Haldol, Chlorpromazine, Social History: He currently lives in a alf in [facility]. See previous social history below. He reports is unchanged from most recent hospitalization. NPU Discharge Summary 11/23/22 Discharge Diagnosis (1) Schizoaffective disorder, depressive type:?Status:?Chronic (2) Suicidal ideation:?Status:?Reso lved (3) Auditory hallucinations:?Status :?Chronic SI? Brief History: HPI NPU History of Present Illness Real Black is a 32 year old male who presented to the ED with the following report: Chief Complaint: Psychiatric Symptoms Stated Complaint: SI Time Seen by Provider: 11/17/22 07:11 Source: patient Mode of arrival: ambulatory Limitations: no limitations History of Present Illness:?? Patient is a 32-year-old male with a history of schizoaffective disorder here for complaints of auditory hallucinations stating that the voices are telling him to harm himself.? He states they are not telling him any specific ways to harm himself. He does state he feels like he might act on the voices.? He reports a previous suicide attempt years ago.? He states he does have a psychiatrist at [facility].? Patient is requesting hospitalization.? He denies homicidal ideations.? No visual hallucinations.? Denies drug or alcohol use.? Patient is a resident at [facility]. ? complaint: suicidal ideation and other (auditory hallucinations) Onset (ago): day(s) Duration: constant History of same: Yes Relieving factors: none Exacerbating factors: none Associated psychiatric symptoms: depression, suicidal ideation and auditory hallucinations Associated symptoms: Reports auditory hallucinations, depression and suicidal ideation; Deny visual hallucinations or homicidal ideation Treatments prior to arrival: none If self harm: admits thoughts of self harm He was admitted to the neuropsychiatric unit for definitive treatment of those issues.? He presents today reporting he has been doing well in general in the past 13 months with only intermittent AH occasionally with good medication adherence overall. He reports that he had been doing well until about 3 weeks ago when for some reason he cannot explain he began being more drawn to playing his video games at night and staying up.? As he was having 3 and 4-day stretches where he was having little to no sleep his hallucinations returned and they started getting worse eventually leading to him having command auditory hallucinations to harm himself but not specifically to kill himself per se.? He reports that as a got out of control he knew he needed to come in and may be get his sleep back under control and consider changes in his medication.? We discussed the risks, benefits and alternatives of him starting Abilify as we had attempted this in the past and he understood and agreed to proceed as is documented in this note.? This is in part due to the fact that increases in his Geodon have proved challenging such that he has been somewhat stuck at this 40 mg p.o. twice daily dosing.? Also he had been on several medications back then and polypharmacy was a concern but he has been able to decrease some of those medications.? We reviewed his records and identified his 10/03/2022 outpatient evaluation from [facility] as being a comprehensive exploration of his history and ex cerpt is included below. Per his 10/03/2022 [facility] inpatient psychiatric discharge summary: Discharge Diagnosis (1) Suicidal ideation:? ? ? Status: Acut e (2) Auditory hallucinations:? ? ? Status : Acute (3) Schizoaffective disorder, depressive type:? ? ? Status: Chronic Reason for Visit Reason for Visit:??SI? Brief History: Real Black is a 31 year old male admitted to the neuropsychiatry unit for the following report. Mr. Black is a 31-year-old male with history of schizoaffective disorder presenting to the emergency department due to suicidal ideation and hallucinations.? He reports history of similar however had been doing well.? Symptoms started yesterday morning without known specific provoking factor.? He reports compliance with medication regimen and denies other associated significant changes in related depressive symptoms.? Intensity of hallucinations have been worsening.? They tell him to hurt himself.? He has had increased thou ghts of hurting himself because of these voices.? Otherwise denies medical complaints.? No other specific changes in health, exacerbating, or alleviating factors identified. He was admitted to the neuropsychiatry unit for definitive treatment of these issues.? He is well known to this unit with multiple admissions.? The last admission was in June and at that time we changed him from Geodon to Invega and increased his Wellbutrin to 300 mg daily.? He feels like those changes have been working well.? He denies anything that could precipitate a worsening of his auditory hallucinations.? He says he occasionally has flareups of his hallucinations but this is much worse than normal.? He has been generally doing well since he left the hospital in June.? He reported to his therapist and psychiatric nurse practitioner that he had been doing well in recent appointments.? He denies any drug use.? He [place] any stress [place].? He denies any family stress.? He says that he has been compliant with medications.? His mood has been fairly good.? He requested that his Invega be increased.? I agreed to do that for a couple of days and then reevaluate. Hospital Course He slowly acclimated to the individual, group and milieu therapies provided.? He was continued on his medications except for Invega was gradually increased to 9 mg in the morning and 6 mg at bedtime.? He had urinary incontinence on 6 mg twice a day and Cogentin was added.? He had a similar problem with Geodon.? We talked about trying a different antipsychotic but he felt that Invega was good for him and wanted to try that with the Cogentin and increase the dose.? He tolerated these doses and showed steady improvement during his stay. ? He was able to contract for safety outside hospital prior to discharge.? During the hospitalization, patient had routine laboratory studies which were within normal limits except for few outliers.? Additionally there was a general medical evaluation which was also within normal limits and revealed no new acute processes. Discharge Summary: At the time of discharge, lethality was denied and psychosis was resolving.? Mood and anxiety were well managed.? Patient endorsed a plan to follow-up with the aftercare recommendations of the treatment team.? Patient was evaluated and deemed to be absent credible lethality, and had achieved the maximum benefit from an inpatient hospitalization, so was discharged. Per his 07/07/2020 [facility] outpatient psychiatric evaluation: [facility] History and Physical Time In: 13:56 Time Out: 14:57 Chief Complaint: here for therapy and medications History of Present Illness: Information retrieved and edited from [facility] Comp. Clinical Assessment completed on: 05/26/20: anxiety and nervousness, wants therapy and medication management; moved here from [place]. Currently living at [facility], since 04/29/20. Before this arrangement, he was in [place],? 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 He has moved several times back and forth from [place] to [place]. He is hoping his father will retire and his parents will move to [place]; they have a farm in [place]. Real had services with [facility] in 2015. Says he was inpatient due to his voices getting bad and he was suicidal. He says his current diagnosis are bipolar and now he is diagnosed with schizoaffective disorder; he is currently on medications. He is not aware if anyone in his family has bipolar or schizophrenia. He has had suicidal thoughts, chronic in nature. He tried to end his life in 2012 by hanging, reports the rope broke; previously held scissors to his throat; a cousin called him and that is what stopped him from doing it. He lived at [facility](assisted living facility in [place]) for four years, then moved to his Mom's friend's home in [place], [place]. Says he was referred to [facility] by friends of the [facility]. Reported symptoms difficulty concentrating, thoughts hard to dismiss, annoyed and irritable, nervous feeling, worries and fears. Reported symptoms difficulty concentrating, thoughts hard to dismiss, annoyed and irritable, nervous feeling, worries and fears.? Denied fatigue, pains, headache, or digestive problems. Current habits: Drinks 3 large glasses of tea per day; sometimes drinks 2 cups of coffee in the morning and 3 sodas during the day.? Currently reports he sleeps from about midnight or 1 AM up until about 8 or 9 AM; usually obtains about 5 to 6 hours of rest during that time.? He rarely takes a nap in the day.? Sometimes skips breakfast, and usually eats lunch or dinner.? He tries to walk 2 or 3 times per week (up to 1 and half to 2 miles at a time) for physical exercise. History Past Psychiatric History:? Information retrieved and edited from [facility] Comp. Clinical Assessment completed on: 05/26/20:? Real had services with [facility] in 2015; dx were: F25.1 Schizoaffective DO, Depressed Type; F15.20 Methamphetamine Use Disorder; he has had several NPU stays at [facility]; refer to chart. Most recent inpatient hospitalization was from? 06/12/20 to 06/15/20;included suicidal ideation; depressive disorder; and schizoaffective disorder. Real says hospitalization was due to his voices getting bad and he felt suicidal.? History of chronic suicidal thoughts with a history of suicide gesture/attempt including: He tried to end his life in 2012 by hanging; the rope broke, he had scissors held to his throat; says a cousin called him and that is what stopped him from doing it. Real says every now and then his voices act up. He says he has one unrecognized male voice which tells him to do bad stuff to himself, but not to anyone else.? Usually has increased depression and anxiety in the afternoon, usually from 2 PM to 5 PM.? Reports he can a good day, and then out of the blue he doesn?t feel like doing anything; he feels worthless and down in the dumps for no reason; he says every now and then something may trigger it. He has anger problems and when he gets mad at himself, he has hurt himself in the past; hx of cutting; last time he cut himself was in 2018. He used a knife; was cutting his wrist, but hasn't cut deeply enough to be in the hospital. He expressed inability to concentrate, difficulty completing tasks, delayed responses during conversations.? Says he had ADHD as a child; reported that he attended special classes, and took Concerta, Ritalin, and Adderall.? Says the medication was beneficial at school, but usually wore off by the time he got home.? Says he is able to control ADHD symptoms as an adult. Family History: Information retrieved and edited from [facility] Comp. Clinical Assessment completed on: 05/26/20 Family Psychiatric History: Anxiety and Depression History of Suicide in the Family: No Family history of substance abuse: Alcohol (father) Past Medical History: Information retrieved and edited from [facility] Comp. Clinical Assessment completed on: 05/26/20 Primary Care Provider: Yes (Dr. Flowers); last physical exam: Within past year (05.07.20) Client's Medical History: No major medical illness Surgical Procedure: Tonsillectomy; history of foot fracture Substance Use History: Information retrieved and edited from [facility] Comp. Clinical Assessment completed on: 05/26/20 Client history of substance abuse: Alcohol (yes) Age of onset (years): 13 Pattern of use: denied current use and has not used in 3 years; Cannabis (yes) Age of onset (years): 19 Pattern of use: denied current use; has not used in 3 years ; Amphetamine (yes) Age of onset (years): 21 Pattern of use: (previous snorting and smoking it );denied current use; has not used in 3 years; Nicotine (yes) Age of onset (years): 19 Pattern of use: current use: 1 ppd Client?s drug and/or alcohol use in the last 30 days: No Social History: Information retrieved and edited from [facility] Comp. Clinical Assessment completed on: 05/26/20 Childhood history: Real was born in [place]; at age [age], his parents moved? near [place], [place]. When he was in 5th grade, he moved to [place]. He graduated high school, then moved to [place], [place]. He says he has a good childhood; his parents were in the home growing up and are still together. He is an only child. He is single; has no children. 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 History: Client denies service Abilities/Interests: tries to stay busy, likes to help others; he loves being outside; listens to music Legal Status/History: Current legal issues denied; denies previous arrests incarceration. Spiritual Pursuits: Other (he prays) Highest Education Level Reached: college (12th grade; reports he had ADHD in school and was on meds.) Academic Performance: Performance at grade level Hospital Course Hospital Course He acclimated to the individual, group and milieu therapies provided. When he presented he was having psychosis despite having received his monthly Abilify Maintena injection. Oral Abilify was started to augment his monthly injection and that was titrated to 15 mg p.o. daily. He worked with the social work team to establish continued outpatient resources as well as make appropriate outpatient appointments. He had significant improvement during the hospitalization and was able to contract for safety outside of the hospital prior to discharge. During the hospitalization, the patient had routine laboratory studies which were within normal limits except for a few outliers.? Additionally, there was a general medical evaluation which was also within normal limits and revealed no new acute processes.? At the time of discharge, lethality was denied and psychosis was resolving.? Mood and anxiety were well managed.? The patient endorsed a plan to avoid all drugs of abuse and follow up with the aftercare recommendations of the treatment team.? The patient was evaluated and deemed to be absent credible lethality and had achieved the maximum benefit from an inpatient hospitalization, and so was discharged.? Hospital Course Hospital Course During the hospitalization, the patient had routine laboratory studies which were within normal limits except for a few outliers.? Additionally, there was a general medical evaluation which was also within normal limits and revealed no new acute processes.? At the time of discharge, lethality was denied and psychosis was resolving.? Mood and anxiety were well managed.? The patient endorsed a plan to avoid all drugs of abuse and follow up with the aftercare recommendations of the treatment team.? The patient was evaluated and deemed to be absent credible lethality and had achieved the maximum benefit from an inpatient hospitalization, and so was discharged.? The patient had reported a lack of control regarding his hallucinations while taking 15 mg of Abilify and Abilify Maintena together. The oral Abilify was tapered and discontinued and Invega oral was started concurrently with Abilify Maintena with the patient reporting improved ability to manage his psychosis. He reported no command auditory hallucinations upon discharge. Seroquel was also discontinued on discharge. Involuntary Hold Information 96 Hour Hold: 96 Hour Involuntary Admission: No Mental Status Exam MSE Comments: This is an obese white male who presents in hospital scrubs with improved grooming and fleeting eye contact. No abnormal movements other than mild psychomotor retardation. He was cooperative with exam and appeared in no acute distress. Speech was diminished in rate and normal in prosody and volume with continued evidence of speech latency. Mood described as okay. Affect was blunted. Thought process was linear and mostly organized, Thought content: Patient denied auditory hallucinations today. There are no delusions reported or noted, He did not appear to be responding to internal stimuli. He denied auditory and visual hallucinations. Attention and concentration appeared intact and memory appeared reliable but never formally tested. He is alert and oriented x3. Insight and judgment appeared limited, impulse control appears limited. Discharge Data Studies Completed and Pending: Laboratory Results WBC 7.80 10^3/uL (3.2 9-11.43) 05/10/23 00:55 RBC 4.86 10^6/uL (3.8 5-5.65) 05/10/23 00:55 Hgb 15.10 g/dL (11.27 -16.99) 05/10/23 00:55 Hct 44.4 % (37-53) 05/10/23 00:55 MCV 91.4 fl (82-101) 05/10/23 00:55 MCH 31.1 pg (27-33) 05/10/23 00:55 MCHC 34.0 g/dL (30-55) 05/10/23 00:55 RDW 12.7 % (12.1-15.1 ) 05/10/23 00:55 Plt Count 226 10^3/cmm (157 -399) 05/10/23 00:55 MPV 9.4 fL (7.4-10.4) 05/10/23 00:55 Neut % (Auto) 55.4 % 05/10/23 00:55 Lymph % (Auto) 36.4 % 05/10/23 00:55 [place] % (Auto) 6.5 % 05/10/23 00:55 Eos % (Auto) 1.0 % 05/10/23 00:55 Baso % (Auto) 0.4 % 05/10/23 00:55 Neut # (Auto) 4.32 10^3/uL (1.8 -7.7) 05/10/23 00:55 Lymph # (Auto) 2.8 10^3/uL (0.8- 4.8) 05/10/23 00:55 [place] # (Auto) 0.5 10^3/uL (0.2- 0.9) 05/10/23 00:55 Eos # (Auto) 0.1 10^3/uL (0.0- 0.8) 05/10/23 00:55 Baso # (Auto) 0.0 10^3/uL (0.0- 0.1) 05/10/23 00:55 Nucleated RBC % (a uto) 0 % 05/10/23 00:55 Nucleated RBCs # 0.0 /100WBC 05/10/23 00:55 Sodium 137 mmol/L (136-1 45) 05/10/23 00:55 Potassium 4.3 mmol/L (3.5-5 .1) 05/10/23 00:55 Chloride 102 mmol/L (98-10 7) 05/10/23 00:55 Carbon Dioxide 21 mmol/L (22-29) L 05/10/23 00:55 Anion Gap 18.3 (5-19) 05/10/23 00:55 BUN 12 mg/dL (6-20) 05/10/23 00:55 Creatinine 0.8 mg/dL (0.7-1. 2) 05/10/23 00:55 GFR Calculation 112.8 mL/min (90- 130) 05/10/23 00:55 Glucose 103 mg/dL (65-115 ) 05/10/23 00:55 Calculated Osmolal ity 284 mOsm/kg (285- 295) L 05/10/23 00:55 Calcium 8.9 mg/dL (8.5-10 .5) 05/10/23 00:55 Total Bilirubin 0.2 mg/dL (0.15-1 .2) 05/10/23 00:55 AST 17 U/L (0-40) 05/10/23 00:55 ALT 40 U/L (0-41) 05/10/23 00:55 Alkaline Phosphata se 31 U/L (40-130) L 05/10/23 00:55 Total Protein 7.2 g/dL (6.6-8.7 ) 05/10/23 00:55 Albumin 4.2 g/dL (3.5-5.2 ) 05/10/23 00:55 Globulin 3.0 g/dL (1.3-4.6 ) 05/10/23 00:55 TSH 3.33 uIU/mL (0.27 -4.20) 05/10/23 00:55 Urine Color Yellow (Yellow) 05/10/23 00:58 Urine Appearance Clear (CLEAR) 05/10/23 00:58 Urine pH 5 (5-7) 05/10/23 00:58 Ur Specific Gravit y 1.015 (1.005-1.0 30) 05/10/23 00:58 Urine Protein Neg (Negative) 05/10/23 00:58 Urine Glucose (UA) Norm (Normal) 05/10/23 00:58 Urine Ketones Negative (Negati ve) 05/10/23 00:58 Urine Blood Neg (Negative) 05/10/23 00:58 Urine Nitrate Negative (Negati ve) 05/10/23 00:58 Urine Bilirubin Neg (Negative) 05/10/23 00:58 Urine Urobilinogen Norm mg/dL (Negat bryan) 05/10/23 00:58 Ur Leukocyte Unique ase Negative (Negati ve) 05/10/23 00:58 Salicylates < 0.3 mg/dL (3-10 ) L 05/10/23 00:55 Urine Opiates Scre en Negative ng/mL (N egative) 05/10/23 00:58 Acetaminophen < 5.0 ug/mL (10-3 0) L 05/10/23 00:55 Ur Barbiturates Sc reen Negative ng/mL (N egative) 05/10/23 00:58 Valproic Acid 35.5 ug/mL (50-10 0) L 05/10/23 00:55 Ur Phencyclidine S crn Negative ng/mL (N egative) 05/10/23 00:58 Ur Amphetamines Sc reen Negative ng/mL (N egative) 05/10/23 00:58 U Benzodiazepines Scrn Negative ng/mL (N egative) 05/10/23 00:58 Urine Cocaine Scre en Negative ng/mL (N egative) 05/10/23 00:58 U Marijuana (THC) Screen Positive ng/mL (N egative) H 05/10/23 00:58 Ethyl Alcohol < 10 mg/dL (0-10) 05/10/23 00:55 Vitals: Last Vital Signs Temp 98.0 F 05/16/23 06:00 Pulse 105 H 05/16/23 06:00 Resp 18 05/16/23 06:00 BP 134/87 05/16/23 06:00 Pulse Ox 97 05/16/23 06:00 O2 Del Method Room Air 05/16/23 06:00 Discharge Plan Discharge Patient Disposition: Home Condition: Stable Prescriptions: New paliperidone 6 mg Tablet Extended Release 24hr 6 mg PO BEDTIME 30 Days Qty: 30 1RF paliperidone 6 mg tablet extended release 24hr 6 mg PO BEDTIME Qty: 3 0RF Continued acetaminophen [Tylenol Extra Strength] 500 mg tablet 1,000 mg PO Q6H PRN (Reason: Pain) bupropion HCl 300 mg tablet extended release 24 hr 300 mg PO DAILY 30 Days Qty: 30 1RF divalproex 500 mg tablet extended release 24 hr 1,000 mg PO BEDTIME@20 Qty: 60 1RF Rx Instructions: Taking 2 tablets daily at bedtime at 8 PM hydroxyzine pamoate 25 mg capsule 25 mg PO BID PRN (Reason: Anxiety) Qty: 60 1RF Rx Instructions: Take 1 capsule twice daily, if needed for anxiety trazodone 50 mg tablet 50 mg PO BEDTIME PRN (Reason: Sleep) 30 Days Qty: 30 1RF melatonin 3 mg tablet See Rx Instructions PO BEDTIME@20 PRN (Reason: sleep) Qty: 60 1RF Rx Instructions: Take one or two tablets at bedtime, if needed for sleep metoprolol succinate 25 mg tablet extended release 24 hr 25 mg PO DAILY@07 loperamide 2 mg capsule 2 mg PO DAILY PRN (Reason: Diarrhea) levothyroxine [Levoxyl] 100 mcg tablet 100 mcg PO DAILY@07 lisinopril 10 mg tablet 10 mg PO DAILY@07 methocarbamol 750 mg tablet 750 mg PO Q6H PRN (Reason: spasms) Qty: 20 0RF omeprazole 20 mg Capsule,Delayed Release(Dr/Ec) 20 mg PO DAILY@16 Abilify Maintena 400 mg suspension,extended rel syring 400 mg IM ONCE Discontinued aripiprazole 15 mg tablet 15 mg PO DAILY 30 Days Qty: 30 1RF Abilify Maintena 400 mg suspension,extended rel recon 400 mg IM Q28D Qty: 1 5RF Rx Instructions: Administer one IM injection (400 mg) every 28 to 30 days quetiapine 100 mg tablet 100 mg PO DAILY PRN (Reason: psychosis) Qty: 10 0RF Rx Instructions: Take 1 tablet daily, if needed for psychosis during the last week of Discharge Orders: Discharge Order (Routine); Ordered 05/16/23 Ordered By: Trevor Figueroa Referrals: Patria Mckinney APRN [Nurse Practitioner] - 05/22/23 9:45 am Sp Flowers MD [Primary Care Provider] - Yesica Nguyen LMSW [Therapist] - Discharge Diet: Usual diet Discharge Activity: Resume usual activity Patient Instructions: Opioid Safety Discharge Attestations NPU Time Spent in Discharge Care*: less than 30 min Specific Discharge Activities: Specific discharge activities: educating patient and documenting/other paperwork Status at Discharge: Cognitive status at discharge: cognitively intact , Behavioral status at discharge: cooperative , Coding Level of Care Code Acute Code for [facility] Diagnoses Schizoaffective disorder, depressive type F25.1 Suicidal ideation R45.851 Auditory hallucinations R44.0
[2023-05-16 14:44] VITALS: BP 120/70; PULSE 114; RESP 16; TEMP 36.6; O2SAT 96
== END 2023-05-16 15:05 | disposition home or self-care (01) | DRG 885 ==
LOC: ER 02:36 → NP 03:08
PROVIDERS: Admitting Provider Psychiatry & Neurology Psychiatry; Emergency Provider Emergency Medicine; PCP Family Medicine; Visit Provider Psychiatry & Neurology Psychiatry
DX: F25.1 Schizoaffective disorder, depressive type (principal); R45.851 Suicidal ideations; Z81.1 Family history of alcohol abuse and dependence; Z81.8 Family history of other mental and behavioral disorders; Z87.891 Personal history of nicotine dependence; Z91.51 Personal history of suicidal behavior
CPT/HCPCS: 80053; 80164; 80306; 80307; 81003; 84443; 85025; 96372; 97150; 97165; 99285

== ENCOUNTER 2023-08-03 22:20 | Inpatient (IN) | payer MEDICARE, MEDICAID, SELFPAY ==
[2023-02-16 13:35] VITALS: BP 138/86; BMI 35.8
[2023-08-03 22:24] VITALS: BP 154/100; PULSE 90; RESP 16; TEMP 36.6; O2SAT 97
[2023-08-03 22:49] LABS: Basophils % 0.4 %; Eosinophils # 0.1 10^3/uL (0.0-0.8); Eosinophils % 1.6 %; Hematocrit 46.5 % (37-53); Lymphocytes # 2.6 10^3/uL (0.8-4.8); Lymphocytes % 38.1 %; Mean Corpuscular HGB Conc 33.5 g/dL (30-55); Mean Corpuscular Hemoglobin 30.4 pg (27-33); Mean Corpuscular Volume 90.6 fl (82-101); Mean Platelet Volume 9.8 fL (7.4-10.4); Monocytes # 0.3 10^3/uL (0.2-0.9); Monocytes % 5.1 %; Neutrophils # 3.63 10^3/uL (1.8-7.7); Neutrophils % 54.4 %; Nucleated Red Blood Cells % 0 %; Platelet Count 226 10^3/cmm (157-399); Red Blood Count 5.13 10^6/uL (3.85-5.65); Red Cell Distribution Width 13.2 % (12.1-15.1); White Blood Count 6.69 10^3/uL (3.29-11.43)
[2023-08-03 23:08] LABS: Valproic Acid Level 25.9 ug/mL (50-100)
--- NOTE | 2023-08-03 23:13 | W.ED.PSYCHS ---
HPI - Psych General: Chief Complaint: Psychiatric Symptoms Stated Complaint: SI Time Seen by Provider: 08/03/23 22:33 History of Present Illness: Patient presents to the ER with complaints of hearing voices and the voices are telling him to kill himself. Patient says been hearing these voices for about 2 to 3 days and he has heard them before. Patient also been hospitalized here before the last time being in April. Patient says he uses weed to help him try to calm the voices but is not working good enough. Patient should be on if he is taken it Abilify Wellbutrin Depakote hydroxyzine melatonin Invega and trazodone. Patient has previous diagnosis of schizoaffective disorder depressive type, depressive disorder, hallucinations, per record patient was discharged May 16, 2023 from [facility] for acute psychosis. Review of Systems General: Reports: 10 or more systems reviewed and unremarkable except in HPI and below PFSH ED PFSH: Medical History Psychiatric care Schizoaffective disorder, depressive type Depressive disorder Hallucination Family History Other Diabetes Hypertension Schizoaffective disorder, depressive type Social History Smoking and tobacco/nicotine status: former use of tobacco/nicotine Quit status (tobacco/nicotine): has quit using Year quit tobacco: 150 days? Second hand smoke exposure: Yes Alcohol intake: never Substance/Drug Use: never Adopted: No Caregiver/support person: Yes (sets up his medication) Lives independently: No (Staying at [facility]) Household members: other Details: Multiple other residents at the facility. Housing: Assisted Living Facility Marital status: Single Number of children: 0 Number of grandchildren: 0 Highest education level completed: High School Graduate service: No Current occupational status: disabled Current occupational exposures/hazards: No Pets and animals: Yes Pets & animals: cat(s) Leisure activites: exercise, music, games and other Leisure activities details: watch TV Sexually active: Yes How many partners: 1 Are you practicing safe sex: No Do you think of yourself as: Straight/Heterosexual Current gender identity: Male Paola/Religious: Mosque Special paola needs: No Agree to transfusion: Yes Physical Exam Const: COMMON NORMALS: no acute distress, average body habitus, patient oriented x3, no limitations, healthy appearing, alert and well nourished HENMT: COMMON NORMALS: normocephalic, atraumatic, hearing grossly normal bilaterally, external ears normal, Normal external nose present, moist oral mucous membranes and oropharynx normal HEAD & SCALP: normocephalic and atraumatic NOSE: Normal external nose present EXTERNAL EAR: Yes external ears normal Neck/C-Spine: COMMON NORMALS: no JVD Chest: COMMONS NORMALS: normal inspection of the chest and normal palpation of entire chest wall Resp: COMMON NORMALS: normal respiratory effort, No retractions, No use of accessory muscles and clear to auscultation bilaterally AUSCULTATION: clear to auscultation bilaterally Cardio: COMMON NORMALS: no JVD, regular rate, regular rhythm, S1 normal heart sound present, S2 normal heart sound present, No gallops present (Cardio), No clicks present (Cardio), No murmurs present (Cardio) and No rub (Cardio) RATE: regular rate RHYTHM: regular rhythm HEART SOUNDS: S1 normal heart sound present and S2 normal heart sound present GI: COMMON NORMALS: Normal to inspection, nondistended, normoactive bowel sounds present, Soft to palpation, non-tender, No hepatosplenomegaly present and no masses PALPATION: Yes Soft to palpation and Yes No hepatosplenomegaly present Neuro: COMMON NORMALS: patient oriented x3 SENSORIUM/ORIENTATION: Yes alert Course Vital Signs: Vital signs: Vital Signs Temperature 97.8 F 08/03/23 22:24 Pulse Rate 90 08/03/23 22:24 Respiratory Rate 16 08/03/23 22:24 Blood Pressure 154/100 08/03/23 22:24 Pulse Oximetry 97 08/03/23 22:24 Oxygen Delivery Me thod Room Air 08/03/23 22:24 MDM - Psych Medical Decision Making Patient be worked up in normal gastric fashion for medical clearance. Anticipate calling psychiatrist and getting him in place for placement in MPU. Dr. Stevens was notified once medically cleared and agreed to place patient in MPU for further workup and treatment. Differential Diagnosis Likely acute psychosis and suicidal ideation Medical Records I reviewed the patient's medical records. Lab Data I reviewed the patient's lab results. 08/03/23 22:42 08/03/23 22:42 Laboratory Results WBC 6.69 10^3/uL (3.29-11.43) 08/03/23 22:42 RBC 5.13 10^6/uL (3.85-5.65) 08/03/23 22:42 Hgb 15.60 g/dL (11.27-16.99) 08/03/23 22:42 Hct 46.5 % (37-53) 08/03/23 22:42 MCV 90.6 fl (82-101) 08/03/23 22:42 MCH 30.4 pg (27-33) 08/03/23 22:42 MCHC 33.5 g/dL (30-55) 08/03/23 22:42 RDW 13.2 % (12.1-15.1) 08/03/23 22:42 Plt Count 226 10^3/cmm (157-399) 08/03/23 22:42 MPV 9.8 fL (7.4-10.4) 08/03/23 22:42 Neut % (Auto) 54.4 % 08/03/23 22:42 Lymph % (Auto) 38.1 % 08/03/23 22:42 [place] % (Auto) 5.1 % 08/03/23 22: Eos % (Auto) 1.6 % 08/03/23 22:42 Baso % (Auto) 0.4 % 08/03/23 22:42 Neut # (Auto) 3.63 10^3/uL (1.8-7.7) 08/03/23 22: Lymph # (Auto) 2.6 10^3/uL (0.8-4.8) 08/03/23 22:42 [place] # (Auto) 0.3 10^3/uL (0.2-0.9) 08/03/23 22:42 Eos # (Auto) 0.1 10^3/uL (0.0-0.8) 08/03/23 22:42 Baso # (Auto) 0.0 10^3/uL (0.0-0.1) 08/03/23 22:42 Nucleated RBC % (auto) 0 % 08/03/23 22: Nucleated RBCs # 0.0 /100WBC 08/03/23 22:42 Sodium 135 mmol/L (136-145) L 08/03/23 22:42 Potassium 4.1 mmol/L (3.5-5.1) 08/03/23 22:42 Chloride 102 mmol/L (98-107) 08/03/23 22:42 Carbon Dioxide 21 mmol/L (22-29) L 08/03/23 22:42 Anion Gap 16.1 (5-19) 08/03/23 22:42 BUN 13 mg/dL (6-20) 08/03/23 22:42 Creatinine 0.7 mg/dL (0.7-1.2) 08/03/23 22:42 GFR Calculation 130.7 mL/min (90-130) H 08/03/23 22:42 Glucose 109 mg/dL (65-115) 08/03/23 22:42 Calculated Osmolality 281 mOsm/kg (285-295) L 08/03/23 22:42 Calcium 9.3 mg/dL (8.5-10.5) 08/03/23 22:42 Total Bilirubin 0.4 mg/dL (0.15-1.2) 08/03/23 22:42 AST 35 U/L (0-40) 08/03/23 22:42 ALT 86 U/L (0-41) H 08/03/23 22:42 Alkaline Phosphatase 37 U/L (40-130) L 08/03/23 22:42 Total Protein 7.6 g/dL (6.6-8.7) 08/03/23 22:42 Albumin 4.6 g/dL (3.5-5.2) 08/03/23 22:42 Globulin 3.0 g/dL (1.3-4.6) 08/03/23 22:42 TSH 4.19 uIU/mL (0.27-4.20) 08/03/23 22:42 Urine Color Yellow (Yellow) 08/03/23 23:15 Urine Appearance Clear (CLEAR) 08/03/23 23:15 Urine pH 5 (5-7) 08/03/23 23:15 Ur Specific [place] 1.025 (1.005-1.030) 08/03/23 23:15 Urine Protein Neg (Negative) 08/03/23 23:15 Urine Glucose (UA) Norm (Normal) 08/03/23 23:15 Urine Ketones Negative (Negative) 08/03/23 23:15 Urine Blood Neg (Negative) 08/03/23 23:15 Urine Nitrate Negative (Negative) 08/03/23 23:15 Urine Bilirubin Neg (Negative) 08/03/23 23:15 Urine Urobilinogen Neg mg/dL (Negative) 08/03/23 23:15 Ur Leukocyte Esterase Negative (Negative) 08/03/23 23:15 Salicylates < 0.3 mg/dL (3-10) L 08/03/23 22:42 Urine Opiates Screen Negative ng/mL (Negative) 08/03/23 23:15 Acetaminophen < 5.0 ug/mL (10-30) L 08/03/23 22:42 Ur Barbiturates Screen Negative ng/mL (Negative) 08/03/23 23:15 Valproic Acid 25.9 ug/mL (50-100) L 08/03/23 22:42 Ur Phencyclidine Scrn Negative ng/mL (Negative) 08/03/23 23:15 Ur Amphetamines Screen Negative ng/mL (Negative) 08/03/23 23:15 U Benzodiazepines Scrn Negative ng/mL (Negative) 08/03/23 23:15 Urine Cocaine Screen Negative ng/mL (Negative) 08/03/23 23:15 U Marijuana (THC) Screen Positive ng/mL (Negative) H 08/03/23 23:15 Ethyl Alcohol < 10 mg/dL (0-10) 08/03/23 22:42 No radiology studies performed this visit Discharge Plan Discharge Patient Disposition: Admitted As Inpatient Clinical Impression: Suicidal ideation, Chronic schizophrenia Condition: Stable Coding Level of Care Code ED Rn Psych for Keny Ying
[2023-08-03 23:18] LABS: Acetaminophen < 5.0 ug/mL (10-30); Alanine Aminotransferase 86 U/L (0-41); Albumin Level 4.6 g/dL (3.5-5.2); Alcohol Level < 10 mg/dL (0-10); Alkaline Phosphatase 37 U/L (40-130); Blood Urea Nitrogen 13 mg/dL (6-20); Calcium 9.3 mg/dL (8.5-10.5); Carbon Dioxide 21 mmol/L (22-29); Chloride 102 mmol/L (98-107); Creatinine Clr Calc Pharmacy 181.0997; Glomerular Filtration Rate 130.7 mL/min (90-130); Glucose 109 mg/dL (65-115); Osmolality Calculated 281 mOsm/kg (285-295); Salicylate < 0.3 mg/dL (3-10); Sodium 135 mmol/L (136-145); Thyroid Stimulating Hormone 4.19 uIU/mL (0.27-4.20); Total Bilirubin 0.4 mg/dL (0.15-1.2); Total Protein 7.6 g/dL (6.6-8.7)
[2023-08-03 23:19] LABS: Anion Gap 16.1 (5-19); Aspartate Amino Transferase 35 U/L (0-40); Potassium 4.1 mmol/L (3.5-5.1)
[2023-08-03 23:23] LABS: Add Urine Microscopic? NO; Charge for UA Resulting for Rev
[2023-08-03 23:26] LABS: Specific Gravity, Urine 1.025 (1.005-1.030); Urine Appearance Clear (CLEAR); Urine Color Yellow (Yellow); pH Urine 5 (5-7)
[2023-08-03 23:27] LABS: Bilirubin Urine Neg (Negative); Blood Urine Neg (Negative); Glucose Urine UA Norm (Normal); Ketones Urine Negative (Negative); Leukocyte Esterase Urine Negative (Negative); Nitrate Urine Negative (Negative); Protein Urine Neg (Negative); Urobilinogen Urine Neg (Negative)
[2023-08-03 23:32] LABS: Amphetamines Screen Urine Negative (Negative); Barbiturates Screen Urine Negative (Negative); Benzodiazepines Screen Urine Negative (Negative); Cocaine Screen Urine Negative (Negative); Opiate Screen Urine Negative (Negative); PCP Screen Urine Negative (Negative); THC Screen Urine Positive (Negative)
[2023-08-04 00:31] VITALS: BP 145/80; PULSE 86; RESP 16; O2SAT 98
[2023-08-04 00:39] VITALS: BP 133/87; PULSE 85; RESP 17; TEMP 36.4; O2SAT 97
[2023-08-04] MEDS: hyDROXYzine 25 mg Capsule 50 MG PO ×2 (02:25→11:05)
[2023-08-04 06:00] VITALS: BP 129/71; PULSE 92; RESP 16; O2SAT 98
[2023-08-04] MEDS: metoprolol succinate ER (24 HR) 25 mg Tablet PO (07:23)
[2023-08-04] MEDS: lisinopril 10 mg Tablet PO (07:23)
[2023-08-04] MEDS: levothyroxine 100 mcg Tablet PO (07:23)
--- NOTE | 2023-08-04 11:05 | PC.NURSE ---
ADMINISTERED VISTARIL 50MG PO FOR ANXIETY RATED 7/10.
[2023-08-04 14:00] VITALS: BP 133/85; PULSE 107; RESP 16; TEMP 36.6; O2SAT 96
--- NOTE | 2023-08-04 14:59 | W.PM.NPUH&PS ---
Providers/Chief Complaint Admitting Physician: Troy Stevens MD Primary Care Provider: Sp Flowers MD Chief Complaint: SI HPI NPU History of Present Illness Real Black is a 33 year old male who presented to the emergency department with complaints of hearing voices telling him to harm himself. The patient had reported that he had had a visit with his therapist on the day of admission and after the visit he had felt more anxious and this led to the presence of voices which cascaded into the emergence of suicidal thoughts. Patient was admitted to the neuropsychiatric unit for further evaluation and treatment. He reports that he has been less preoccupied by hallucinations since the change from his last admission in April 2023. He continues to report having occasional panic attacks lasting about 10 minutes with shortness of breath and chest pain that appear to be untriggered. Patient had continued to report that he had been smoking weed on a daily basis. He had denied any worsening depression. He did not complain of problems with regarding his energy. He had reported compliance with his current medication regimen. Patient continues to report having problems managing chronic worry. He reports that he frequently feels that the worry is out of control. He had reported that he had recently revealed in therapy about having some particular sexual fetish and reviewing that information at his therapy appointment seem to cause greater anxiety when he returned home. He reports no other substantial changes since his last admission in April 2023. He reports that he continues to receive case management services and [facility] services. Current medications: Abilify 400 mg intramuscularly every 28 days, Wellbutrin XL 300 mg daily, Depakote 1000 mg at night, hydroxyzine 25 mg twice a day, Synthroid 100 mcg daily, lisinopril 10 mg daily, metoprolol 25 mg daily, omeprazole 20 mg daily, Invega 6 mg at night, trazodone 50 mg at night NPU D/C Summary from 05/16/23 Diagnoses at Discharge Discharge Diagnosis (1) Schizoaffective disorder, depressive type: Status: Chronic (2) Suicidal ideation: Status: Resolved (3) Auditory hallucinations: Status: Resolved Reason for Visit I Brief History: History of Present Illness Real Black is a 32 year old male currently residing at the [facility] who presented to the emergency department with complaints of command auditory hallucinations telling him to kill himself. He had reported that he had been compliant with his Abilify monthly injection but states that over the past 3 to 4 days he has been having more auditory hallucinations telling him to harm himself. He states that the voices are chronically present but states that they had been more manageable but approximately 1 week till his next injection of Abilify he has been having an emerging problem of increased prevalence of the hallucinations. Patient denied any homicidal ideation and reports that he is often overwhelmed. He states that a recent stressor for him had been that he had been worried about going on vacation to [place] with his family members and stated that he was under a great deal of stress. Patient was admitted to the neuropsychiatric unit for further evaluation and treatment. He reports no substantial changes since his last hospitalization and discharged from the neuropsychiatric unit on 03/23/2023. Excerpt from NPU DISCHARGE 03/23/23 Discharge Diagnosis (1) Schizoaffective disorder, depressive type: Status: Chronic (2) Suicidal ideation: Status: Resolved (3) Auditory hallucinations: Status: Resolved Reason for Visit SI Brief History: History of Present Illness Real Black is a 32 year old male most recently hospitalized in November 2022 with a history of schizoaffective disorder who presented to the emergency department with complaints of auditory hallucinations telling him to harm himself. Patient was admitted to the neuropsychiatric unit for further diagnosis and treatment. Patient reported that he has been compliant with his medications and reports that he has recently received his monthly injection of Abilify approximately 3 days ago and states that usually his mood and his voices become quieter but reports that at this time it is not been the case. He reports that he has been hearing voices telling him to harm himself. He does endorse some depressed mood. He reports some difficulties with concentration. He had stated that he is concerned that if his medications are not adjusted that he may do something to hurt himself. Inpatient psychiatric history: Multiple inpatient hospitalizations Outpatient psychiatric history: He reports receiving CPRS services at [facility] on an outpatient basis with weekly visits Current medications: Abilify Maintena 400 mg IM every 28 days, Wellbutrin SR 200 mg daily, Depakote 1000 mg at night, hydroxyzine 25 twice a day as needed, levothyroxine 100 mcg daily, lisinopril 10 mg daily, metoprolol 25 mg daily, omeprazole 25 mg daily, Seroquel 100 mg as needed at night Allergies: Latuda, olanzapine, Haldol, Chlorpromazine, Social History: He currently lives in a ch[facility] in [facility]. See previous social history below. He reports is unchanged from most recent hospitalization. NPU Discharge Summary 11/23/22 Discharge Diagnosis (1) Schizoaffective disorder, depressive type:?Status:?Chronic(2) Suicidal ideation:?Status:?Resolved(3) Auditory hallucinations:?Status:?ChronicSI? Brief History: HPI NPU History of Present Illness Real Black is a 32 year old male who presented to the ED with the following report: Chief Complaint: Psychiatric Symptoms Stated Complaint: SI Time Seen by Provider: 11/17/22 07:11 Source: patient Mode of arrival: ambulatory Limitations: no limitations History of Present Illness:?? Patient is a 32-year-old male with a history of schizoaffective disorder here for complaints of auditory hallucinations stating that the voices are telling him to harm himself.? He states they are not telling him any specific ways to harm himself. He does state he feels like he might act on the voices.? He reports a previous suicide attempt years ago.? He states he does have a psychiatrist at [facility].? Patient is requesting hospitalization.? He denies homicidal ideations.? No visual hallucinations.? Denies drug or alcohol use.? Patient is a resident at [facility]. ? MD complaint: suicidal ideation and other (auditory hallucinations) Onset (ago): day(s) Duration: constant History of same: Yes Relieving factors: none Exacerbating factors: none Associated psychiatric symptoms: depression, suicidal ideation and auditory hallucinations Associated symptoms: Reports auditory hallucinations, depression and suicidal ideation; Deny visual hallucinations or homicidal ideation Treatments prior to arrival: none If self harm: admits thoughts of self harm He was admitted to the neuropsychiatric unit for definitive treatment of those issues.? He presents today reporting he has been doing well in general in the past 13 months with only intermittent AH occasionally with good medication adherence overall. He reports that he had been doing well until about 3 weeks ago when for some reason he cannot explain he began being more drawn to playing his video games at night and staying up.? As he was having 3 and 4-day stretches where he was having little to no sleep his hallucinations returned and they started getting worse eventually leading to him having command auditory hallucinations to harm himself but not specifically to kill himself per se.? He reports that as a got out of control he knew he needed to come in and may be get his sleep back under control and consider changes in his medication.? We discussed the risks, benefits and alternatives of him starting Abilify as we had attempted this in the past and he understood and agreed to proceed as is documented in this note.? This is in part due to the fact that increases in his Geodon have proved challenging such that he has been somewhat stuck at this 40 mg p.o. twice daily dosing.? Also he had been on several medications back then and polypharmacy was a concern but he has been able to decrease some of those medications.? We reviewed his records and identified his 10/03/2022 outpatient evaluation from [facility] as being a comprehensive exploration of his history and excerpt is included below. Per his 10/03/2022 [facility] inpatient psychiatric discharge summary: Discharge Diagnosis (1) Suicidal ideation:? ? ? Status: Acute(2) Auditory hallucinations:? ? ? Status: Acute(3) Schizoaffective disorder, depressive type:? ? ? Status: Chronic Reason for Visit Reason for Visit:??SI? Brief History: Real Black is a 31 year old male admitted to the neuropsychiatry unit for the following report. Mr. Black is a 31-year-old male with history of schizoaffective disorder presenting to the emergency department due to suicidal ideation and hallucinations.? He reports history of similar however had been doing well.? Symptoms started yesterday morning without known specific provoking factor.? He reports compliance with medication regimen and denies other associated significant changes in related depressive symptoms.? Intensity of hallucinations have been worsening.? They tell him to hurt himself.? He has had increased thoughts of hurting himself because of these voices.? Otherwise denies medical complaints.? No other specific changes in health, exacerbating, or alleviating factors identified. He was admitted to the neuropsychiatry unit for definitive treatment of these issues.? He is well known to this unit with multiple admissions.? The last admission was in June and at that time we changed him from Geodon to Invega and increased his Wellbutrin to 300 mg daily.? He feels like those changes have been working well.? He denies anything that could precipitate a worsening of his auditory hallucinations.? He says he occasionally has flareups of his hallucinations but this is much worse than normal.? He has been generally doing well since he left the hospital in June.? He reported to his therapist and psychiatric nurse practitioner that he had been doing well in recent appointments.? He denies any drug use.? He denies any stress [place].? He denies any family stress.? He says that he has been compliant with medications.? His mood has been fairly good.? He requested that his Invega be increased.? I agreed to do that for a couple of days and then reevaluate. Hospital Course He slowly acclimated to the individual, group and milieu therapies provided.? He was continued on his medications except for Invega was gradually increased to 9 mg in the morning and 6 mg at bedtime.? He had urinary incontinence on 6 mg twice a day and Cogentin was added.? He had a similar problem with Geodon.? We talked about trying a different antipsychotic but he felt that Invega was good for him and wanted to try that with the Cogentin and increase the dose.? He tolerated these doses and showed steady improvement during his stay. ? He was able to contract for safety outside hospital prior to discharge.? During the hospitalization, patient had routine laboratory studies which were within normal limits except for few outliers.? Additionally there was a general medical evaluation which was also within normal limits and revealed no new acute processes. Discharge Summary: At the time of discharge, lethality was denied and psychosis was resolving.? Mood and anxiety were well managed.? Patient endorsed a plan to follow-up with the aftercare recommendations of the treatment team.? Patient was evaluated and deemed to be absent credible lethality, and had achieved the maximum benefit from an inpatient hospitalization, so was discharged. Per his 07/07/2020 [facility] outpatient psychiatric evaluation: [facility] History and Physical Time In: 13:56 Time Out: 14:57 Chief Complaint: here for therapy and medications History of Present Illness: Information retrieved and edited from [facility] Comp. Clinical Assessment completed on: 05/26/20: anxiety and nervousness, wants therapy and medication management; moved here from [place]. Currently living at [facility], since 04/29/20. Before this arrangement, he was in [place],? living at an transition assistant living facility. He has moved several times back and forth from [place] to [place]. He is hoping his father will retire and his parents will move to [place]; they have a farm in [place]. Real had services with [facility] in 2016. Says he was inpatient due to his voices getting bad and he was suicidal. He says his current diagnosis are bipolar and now he is diagnosed with schizoaffective disorder; he is currently on medications. He is not aware if anyone in his family has bipolar or schizophrenia. He has had suicidal thoughts, chronic in nature. He tried to end his life in 2012 by hanging, reports the rope broke; previously held scissors to his throat; a cousin called him and that is what stopped him from doing it. He lived at [facility](assisted living facility in [place]) for four years, then moved to his Mom's friend's home in [place], [place]. Says he was referred to [facility] by friends of the [facility]. Reported symptoms difficulty concentrating, thoughts hard to dismiss, annoyed and irritable, nervous feeling, worries and fears. Reported symptoms difficulty concentrating, thoughts hard to dismiss, annoyed and irritable, nervous feeling, worries and fears.? Denied fatigue, pains, headache, or digestive problems. Current habits: Drinks 3 large glasses of tea per day; sometimes drinks 2 cups of coffee in the morning and 3 sodas during the day.? Currently reports he sleeps from about midnight or 1 AM up until about 8 or 9 AM; usually obtains about 5 to 6 hours of rest during that time.? He rarely takes a nap in the day.? Sometimes skips breakfast, and usually eats lunch or dinner.? He tries to walk 2 or 3 times per week (up to 1 and half to 2 miles at a time) for physical exercise. History Past Psychiatric History:? Information retrieved and edited from [facility] Comp. Clinical Assessment completed on: 05/26/20:? Real had services with [facility] in 2015; dx were: F25.1 Schizoaffective DO, Depressed Type; F15.20 Methamphetamine Use Disorder; he has had several NPU stays at [facility]; refer to chart. Most recent inpatient hospitalization was from? 06/12/20 to 06/15/20;included suicidal ideation; depressive disorder; and schizoaffective disorder. Real says hospitalization was due to his voices getting bad and he felt suicidal.? History of chronic suicidal thoughts with a history of suicide gesture/attempt including: He tried to end his life in 2012 by hanging; the rope broke, he had scissors held to his throat; says a cousin called him and that is what stopped him from doing it. Real says every now and then his voices act up. He says he has one unrecognized male voice which tells him to do bad stuff to himself, but not to anyone else.? Usually has increased depression and anxiety in the afternoon, usually from 2 PM to 5 PM.? Reports he can a good day, and then out of the blue he doesn?t feel like doing anything; he feels worthless and down in the dumps for no reason; he says every now and then something may trigger it. He has anger problems and when he gets mad at himself, he has hurt himself in the past; hx of cutting; last time he cut himself was in 2018. He used a knife; was cutting his wrist, but hasn't cut deeply enough to be in the hospital. He expressed inability to concentrate, difficulty completing tasks, delayed responses during conversations.? Says he had ADHD as a child; reported that he attended special classes, and took Concerta, Ritalin, and Adderall.? Says the medication was beneficial at school, but usually wore off by the time he got home.? Says he is able to control ADHD symptoms as an adult. Family History: Information retrieved and edited from [facility] Comp. Clinical Assessment completed on: 05/26/20 Family Psychiatric History: Anxiety and Depression History of Suicide in the Family: No Family history of substance abuse: Alcohol (father) Past Medical History: Information retrieved and edited from [facility] Comp. Clinical Assessment completed on: 05/26/20 Primary Care Provider: Yes (Dr. Flowers); last physical exam: Within past year (05.07.20) Client's Medical History: No major medical illness Surgical Procedure: Tonsillectomy; history of foot fracture Substance Use History: Information retrieved and edited from [facility] Comp. Clinical Assessment completed on: 05/26/20 Client history of substance abuse: Alcohol (yes) Age of onset (years): 13 Pattern of use: denied current use and has not used in 3 years; Cannabis (yes) Age of onset (years): 19 Pattern of use: denied current use; has not used in 3 years ; Amphetamine (yes) Age of onset (years): 21 Pattern of use: (previous snorting and smoking it );denied current use; has not used in 3 years; Nicotine (yes) Age of onset (years): 19 Pattern of use: current use: 1 ppd Client?s drug and/or alcohol use in the last 30 days: No Social History: Information retrieved and edited from [facility] Comp. Clinical Assessment completed on: 05/26/20 Childhood history: Real was born in [place]; at age [age], his parents moved? near [place], [place]. When he was in 5th grade, he moved to [place]. He graduated high school, then moved to [place], [place]. He says he has a good childhood; his parents were in the home growing up and are still together. He is an only child. He is single; has no children. 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 History: Client denies service Abilities/Interests: tries to stay busy, likes to help others; he loves being outside; listens to music Legal Status/History: Current legal issues denied; denies previous arrests incarceration. Spiritual Pursuits: Other (he prays) Highest Education Level Reached: college (12th grade; reports he had ADHD in school and was on meds.) Academic Performance: Performance at grade level Hospital Course Hospital Course He acclimated to the individual, group and milieu therapies provided. When he presented he was having psychosis despite having received his monthly Abilify Maintena injection. Oral Abilify was started to augment his monthly injection and that was titrated to 15 mg p.o. daily. He worked with the social work team to establish continued outpatient resources as well as make appropriate outpatient appointments. He had significant improvement during the hospitalization and was able to contract for safety outside of the hospital prior to discharge. During the hospitalization, the patient had routine laboratory studies which were within normal limits except for a few outliers.? Additionally, there was a general medical evaluation which was also within normal limits and revealed no new acute processes.? At the time of discharge, lethality was denied and psychosis was resolving.? Mood and anxiety were well managed.? The patient endorsed a plan to avoid all drugs of abuse and follow up with the aftercare recommendations of the treatment team.? The patient was evaluated and deemed to be absent credible lethality and had achieved the maximum benefit from an inpatient hospitalization, and so was discharged.? Hospital Course Hospital Course During the hospitalization, the patient had routine laboratory studies which were within normal limits except for a few outliers.? Additionally, there was a general medical evaluation which was also within normal limits and revealed no new acute processes.? At the time of discharge, lethality was denied and psychosis was resolving.? Mood and anxiety were well managed.? The patient endorsed a plan to avoid all drugs of abuse and follow up with the aftercare recommendations of the treatment team.? The patient was evaluated and deemed to be absent credible lethality and had achieved the maximum benefit from an inpatient hospitalization, and so was discharged.? The patient had reported a lack of control regarding his hallucinations while taking 15 mg of Abilify and Abilify Maintena together. The oral Abilify was tapered and discontinued and Invega oral was started concurrently with Abilify Maintena with the patient reporting improved ability to manage his psychosis. He reported no command auditory hallucinations upon discharge. Seroquel was also discontinued on discharge. Meds NPU Home Medications Medication Instructions Recorded Confirmed Last Taken Type acetaminophen 500 mg tablet 1,000 mg PO Q6H PRN Pain 08/03/20 08/04/23 11/04/20 09:00 History (Tylenol Extra Strength) metoprolol succinate 25 mg 25 mg PO DAILY 12/15/20 08/04/23 1 Day Ago History tablet,extended release 24 hr ~08/03/23 25 omeprazole 20 mg capsule,delayed 20 mg PO DAILY@16 09/28/21 08/04/23 1 Day Ago History release ~08/03/23 20 levothyroxine 100 mcg tablet 100 mcg PO DAILY 11/17/22 08/04/23 1 Day Ago History (Levoxyl) ~08/03/23 100 lisinopril 10 mg tablet 10 mg PO DAILY 11/17/22 08/04/23 1 Day Ago History ~08/03/23 10 loperamide 2 mg capsule 2 mg PO DAILY PRN Diarrhea 11/17/22 08/04/23 1 Day Ago History ~08/03/23 2 aripiprazole 400 mg intramuscular 400 mg IM Q28D #1 ea 05/31/23 08/04/23 3 Weeks Ago Rx suspension,extended release ~07/14/23 (Francisco J Arshaditzel) 400 hydroxyzine pamoate 25 mg capsule 25 mg PO BID PRN Anxiety #60 caps 07/18/23 08/04/23 Unknown Rx trazodone 50 mg tablet 50 mg PO BEDTIME PRN Sleep 30 days 07/18/23 08/04/23 Unknown Rx #30 tabs bupropion HCl 300 mg 24 hr tablet, 300 mg PO DAILY 08/04/23 08/04/23 1 Day Ago History extended release ~08/03/23 1000 divalproex 500 mg tablet,extended 1,000 mg PO BEDTIME 08/04/23 08/04/23 1 Day Ago History release 24 hr ~08/03/23 1000 melatonin 3 mg tablet 6 mg PO BEDTIME PRN sleep 08/04/23 08/04/23 Unknown History paliperidone 6 mg tablet,extended 6 mg PO BEDTIME psychosis 08/04/23 08/04/23 1 Day Ago History release 24 hr ~08/03/23 6 Allergies Allergy/AdvReac Type Severity Reaction Status Date / Time chlorpromazine Allergy Severe ALGY-Anaphy Verified 08/03/23 22:32 laxis haloperidol [From Haldol] Allergy Severe ALGY-Swell Verified 08/03/23 22:32 Lip/Tongue/Throat lurasidone [From Latuda] Allergy Severe ALGY-Swell Verified 08/03/23 22:32 Lip/Tongue/Throat olanzapine [From Zyprexa] Allergy Severe ALGY-Swell Verified 08/03/23 22:32 Lip/Tongue/Throat PFSH NPU PFSH: Medical History Psychiatric care Schizoaffective disorder, depressive type Depressive disorder Hallucination Family History Other Diabetes Hypertension Schizoaffective disorder, depressive type Social History Smoking and tobacco/nicotine status: former use of tobacco/nicotine Quit status (tobacco/nicotine): has quit using Year quit tobacco: 150 days? Second hand smoke exposure: Yes Alcohol intake: never Substance/Drug Use: never Adopted: No Caregiver/support person: Yes (sets up his medication) [facility] independently[facility] Household members: other Details: Multiple other residents at the facility. Housing: Assisted Living Facility Marital status: Single Number of children: 0 Number of grandchildren: 0 Highest education level completed: High School Graduate service: No Current occupational status: disabled Current occupational exposures/hazards: No Pets and animals: Yes Pets & animals: cat(s) Leisure activites: exercise, music, games and other Leisure activities details: watch TV Sexually active: Yes How many partners: 1 Are you practicing safe sex: No Do you think of yourself as: Straight/Heterosexual Current gender identity: Male Pa[place]/Mu-Ism: Muslim Special paola needs: No Agree to transfusion: Yes Mental Status Exam MSE Comments: This is an obese white male who presents in hospital scrubs with adequate grooming and fair eye contact. No abnormal movements other than mild psychomotor retardation. He was cooperative with exam and in mild to moderate distress. Speech was normal in rate and normal in prosody and volume with normal speech latency. Mood described as depressed. His affect appeared anxious today. Thought process was linear and logical. His thought content: Patient endorsed having auditory hallucinations telling him to hurt self. There are no delusions reported or noted, He denied visual hallucinations. Attention and concentration appeared intact and memory appeared reliable but never formally tested. He is alert and oriented x3. Insight was poor and judgment appear poor, impulse control appears poor. 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 Plan: 1. Restart outpatient medications as previously prescribed. Add lexapro 10mg daily to target anxiety. 2. Continue every 15 minute checks for safety. 3. Encourage individual, group and milieu therapies. 4. Encourage sober living treatment after discharge at the highest level of care to which he is willing to commit. Involuntary Hold Information 96 Hour Hold: 96 Hour Involuntary Admission: No Attestations NPU Medical Necessity Statement*: Inpatient hospitalization is medically necessary and the clinically appropriate intervention at this time. We will initiate medications and make changes as indicated. He will be in the hospital for over 2 midnights. His likely length of stay 4-6 days. Coding Level of Care Code Acute Code for [facility] Diagnoses Schizoaffective disorder, depressive type F25.1 Suicidal ideation R45.851 Auditory hallucinations R44.0
[2023-08-04] MEDS: pantoprazole DR 40 mg Tablet PO (15:08)
[2023-08-04] MEDS: ibuprofen 600 mg Tablet PO (15:08)
[2023-08-04] MEDS: escitalopram 10 mg Tablet PO (15:37)
[2023-08-04 20:03] VITALS: BP 137/70; PULSE 83; RESP 17; TEMP 36.7; O2SAT 96
[2023-08-04] MEDS: divalproex ER 500 mg Tablet (24H) 1000 MG PO (20:19)
[2023-08-04] MEDS: paliperidone ER 6 mg Tablet PO (20:19)
[2023-08-05 06:00] VITALS: BP 129/85; PULSE 95; RESP 18; TEMP 36.5; O2SAT 95
[2023-08-05] MEDS: metoprolol succinate ER (24 HR) 25 mg Tablet PO (07:14)
[2023-08-05] MEDS: escitalopram 10 mg Tablet PO (07:14)
[2023-08-05] MEDS: lisinopril 10 mg Tablet PO (07:15)
[2023-08-05] MEDS: levothyroxine 100 mcg Tablet PO (07:15)
[2023-08-05] MEDS: ibuprofen 600 mg Tablet PO (11:25)
--- NOTE | 2023-08-05 13:49 | W.PM.NPUPNS ---
Subjective NPU Subjective: 33-year-old male with a history of schizoaffective disorder admitted with command auditory hallucinations anxiety and depression along with suicidal ideation. Patient had minimized auditory hallucinations today. She had stated that the voices are better. He had still complained of having anxiety and did not wish to discuss the conversation with his therapist that had led to him feeling more anxious and indirectly led to suicidal thoughts. Patient continued to isolate himself on the milieu. He had reported no side effects from the Lexapro that was started to target his anxiety. He had reported some depression but stated that he was feeling a little bit more steady. Mental Status Exam MSE Comments: This is an obese white male who presents in hospital scrubs with adequate grooming and fair eye contact. No abnormal movements other than mild psychomotor retardation. He was cooperative with exam and in mild distress. Speech was normal in rate and normal in prosody and volume with normal speech latency. Mood described as a little better. His affect appeared flat today. Thought process was linear and logical. His thought content: Patient endorsed having auditory hallucinations but reported that they were whispers currently. He did not appear to be responding to internal stimuli. There are no delusions reported or noted, He denied visual hallucinations. Attention and concentration appeared intact and memory appeared reliable but never formally tested. He is alert and oriented x3. Insight was poor and judgment appear poor, impulse control appears poor. 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 Plan: 1. Restart outpatient medications as previously prescribed. Continue lexapro 10mg daily to target anxiety. Continue Invega 6mg at night. Patient on IM invega monthly as well. 2. Continue every 15 minute checks for safety. 3. Encourage individual, group and milieu therapies. 4. Encourage sober living treatment after discharge at the highest level of care to which he is willing to commit. Involuntary Hold Information 96 Hour Hold: 96 Hour Involuntary Admission: No Attestations NPU Medical Necessity Statement*: Inpatient hospitalization is medically necessary and the clinically appropriate intervention at this time. We will initiate medications and make changes as indicated. His likely length of stay 4-6 days. Coding Level of Care Code Acute Code for [facility] Diagnoses Schizoaffective disorder, depressive type F25.1 Suicidal ideation R45.851 Auditory hallucinations R44.0
[2023-08-05 14:00] VITALS: BP 134/82; PULSE 106; RESP 20; TEMP 36.3; O2SAT 93
[2023-08-05] MEDS: pantoprazole DR 40 mg Tablet PO (16:04)
--- NOTE | 2023-08-05 18:33 | PC.NURSE ---
ROOM SEARCH PREFORMED BY STAFF NO CONTRABAND FOUND.
[2023-08-05 20:30] VITALS: BP 139/86; PULSE 102; RESP 17; TEMP 36.6; O2SAT 96
[2023-08-05] MEDS: paliperidone ER 6 mg Tablet PO (21:00)
[2023-08-05] MEDS: divalproex ER 500 mg Tablet (24H) 1000 MG PO (21:00)
[2023-08-05] MEDS: ziprasidone hcl 40 mg Capsule PO (21:01)
[2023-08-06 06:00] VITALS: BP 148/98; PULSE 107; RESP 17; TEMP 36.4; O2SAT 95
[2023-08-06] MEDS: hyDROXYzine 25 mg Capsule 50 MG PO (07:33)
[2023-08-06] MEDS: escitalopram 10 mg Tablet PO (09:03)
[2023-08-06] MEDS: metoprolol succinate ER (24 HR) 25 mg Tablet PO (09:03)
[2023-08-06] MEDS: levothyroxine 100 mcg Tablet PO (09:03)
[2023-08-06] MEDS: lisinopril 10 mg Tablet PO (09:03)
--- NOTE | 2023-08-06 13:55 | P.NPUPN_ITS ---
Subjective NPU 2 Subjective: 33-year-old male with a history of schizoaffective disorder admitted with command auditory hallucinations anxiety and depression along with suicidal ideation. The patient had reported that he was hearing voices last night and stated that this had been triggered by his anxiety and worries. He reported no suicidal thoughts today and stated that he was feeling better now. He had reported that he often has struggles with hearing voices but states that he usually is able to distract himself without any particular issues. The patient reports chronic worry often leads to near panic attacks and cascading symptoms leading to voices. Patient received Geodon IM 20mg at night with reports of relief of anxiety last night. Mental Status Exam 2 MSE Comments: This is an obese white male who presents in hospital scrubs with adequate grooming and fair eye contact. No abnormal movements other than mild psychomotor retardation. He was cooperative with exam and in mild to moderate distress. Speech was normal in rate and normal in prosody and volume with normal speech latency. Mood described as okay His affect appeared anxious today. Thought process was linear and logical. His thought content: Patient endorsed no auditory hallucinations today. He did not appear to be responding to internal stimuli. There are no delusions reported or noted, He denied visual hallucinations. Attention and concentration appeared intact and memory appeared reliable but never formally tested. He is alert and oriented x3. Insight was poor and judgment appear poor, impulse control appears poor. 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 Plan: 1. Restart outpatient medications as previously prescribed. Increase lexapro to 20mg daily to target anxiety. Continue Invega 6mg at night. Patient on IM abilify monthly as well. 2. Continue every 15 minute checks for safety. 3. Encourage individual, group and milieu therapies. 4. Encourage sober living treatment after discharge at the highest level of care to which he is willing to commit. Involuntary Hold Information 2 96 Hour Hold: 96 Hour Involuntary Admission: No Attestations NPU 2 Medical Necessity Statement*: Inpatient hospitalization is medically necessary and the clinically appropriate intervention at this time. We will initiate medications and make changes as indicated. His likely length of stay 3-5 days. Coding Level of Care Code Acute Code for [facility] Diagnoses Schizoaffective disorder, depressive type F25.1 Suicidal ideation R45.851 Auditory hallucinations R44.0
[2023-08-06 14:00] VITALS: BP 142/86; PULSE 98; RESP 18; O2SAT 96
[2023-08-06] MEDS: ibuprofen 600 mg Tablet PO ×2 (14:19→21:32)
[2023-08-06] MEDS: clotrimazole 1% cream 30 gm 1 APPLIC TOPICAL (17:01)
[2023-08-06] MEDS: pantoprazole DR 40 mg Tablet PO (17:01)
[2023-08-06 20:16] VITALS: BP 141/83; PULSE 96; RESP 18; TEMP 36.4; O2SAT 97
[2023-08-06] MEDS: divalproex ER 500 mg Tablet (24H) 1000 MG PO (21:32)
[2023-08-06] MEDS: paliperidone ER 6 mg Tablet PO (21:32)
[2023-08-07 06:00] VITALS: BP 142/89; PULSE 108; RESP 16; TEMP 36.3; O2SAT 96
[2023-08-07] MEDS: levothyroxine 100 mcg Tablet PO (07:15)
[2023-08-07] MEDS: lisinopril 10 mg Tablet PO (07:15)
[2023-08-07] MEDS: metoprolol succinate ER (24 HR) 25 mg Tablet PO (07:16)
[2023-08-07] MEDS: escitalopram 10 mg Tablet 20 MG PO (07:16)
--- NOTE | 2023-08-07 10:57 | PC.NURSE ---
room search preformed no contra band found. beds stripped and cleaned.
[2023-08-07] MEDS: ibuprofen 600 mg Tablet PO ×2 (13:38→19:42)
[2023-08-07 14:00] VITALS: BP 136/85; PULSE 99; RESP 16; TEMP 36.6; O2SAT 93
--- NOTE | 2023-08-07 14:51 | P.NPUPN_ITS ---
Subjective NPU 2 Subjective: 33-year-old male with a history of schizoaffective disorder admitted with command auditory hallucinations anxiety and depression along with suicidal ideation. Patient had reported that he was feeling less anxious. He stated that he was not hearing the voices as prominently. He had been somewhat isolative on the milieu but was able to attend groups. He had reported feeling less worried and stated that his depression was not as intense. Patient had reported improved energy. He denied any panic attacks here on the unit. He did not receive any as needed medications for agitation or anxiety last night. Mental Status Exam 2 MSE Comments: This is an obese white male who presents in hospital scrubs with adequate grooming and fair eye contact. No abnormal movements other than mild psychomotor retardation. He was cooperative with exam and in mild to moderate distress. Speech was normal in rate and normal in prosody and volume with normal speech latency. Mood described as better. His affect appeared less restricted today. Thought process was linear and logical. His thought content: Patient endorsed no auditory hallucinations today. He did not appear to be responding to internal stimuli. There are no delusions reported or noted, He denied visual hallucinations. Attention and concentration appeared intact and memory appeared reliable but never formally tested. He is alert and oriented x3. Insight was limited and judgment appear poor, impulse control appears to be improving. . 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 Plan: 1. Restarted outpatient medications as previously prescribed. Continue lexapro to 20mg daily to target anxiety. Continue Invega 6mg at night. Patient on IM abilify monthly as well. 2. Continue every 15 minute checks for safety. 3. Encourage individual, group and milieu therapies. 4. Encourage sober living treatment after discharge at the highest level of care to which he is willing to commit. 5 Discharge likely tommorow. Involuntary Hold Information 2 96 Hour Hold: 96 Hour Involuntary Admission: No Attestations NPU 2 Medical Necessity Statement*: Inpatient hospitalization is medically necessary and the clinically appropriate intervention at this time. We will initiate medications and make changes as indicated. His likely length of stay 1-2 days. Coding Level of Care Code Acute Code for [facility] Fwd Diagnoses Schizoaffective disorder, depressive type F25.1 Suicidal ideation R45.851 Auditory hallucinations R44.0
[2023-08-07] MEDS: pantoprazole DR 40 mg Tablet PO (15:43)
[2023-08-07] MEDS: acetaminophen 325 mg Tablet 650 MG PO (16:46)
[2023-08-07] MEDS: paliperidone ER 6 mg Tablet PO (19:42)
[2023-08-07] MEDS: divalproex ER 500 mg Tablet (24H) 1000 MG PO (19:42)
[2023-08-07 19:55] VITALS: BP 129/73; PULSE 102; RESP 15; TEMP 36.5; O2SAT 95
[2023-08-08 06:00] VITALS: BP 142/75; PULSE 108; RESP 18; TEMP 36.4; O2SAT 96
[2023-08-08] MEDS: levothyroxine 100 mcg Tablet PO (08:30)
[2023-08-08] MEDS: escitalopram 10 mg Tablet 20 MG PO (08:30)
[2023-08-08] MEDS: lisinopril 10 mg Tablet PO (08:30)
[2023-08-08] MEDS: metoprolol succinate ER (24 HR) 25 mg Tablet PO (08:30)
--- NOTE | 2023-08-08 08:48 | DCPLANNER ---
Imm was given to pt and explained and a copy was placed in pts chart.
--- NOTE | 2023-08-08 08:51 | DCPLANNER ---
Imm was given to pt and explained and a copy was placed in pts chart.
[2023-08-08] MEDS: ibuprofen 600 mg Tablet PO (09:30)
--- NOTE | 2023-08-08 12:18 | W.PM.NPUDCS ---
Diagnoses at Discharge Discharge Diagnosis (1) Schizoaffective disorder, depressive type: Status: Chronic (2) Suicidal ideation: Status: Resolved (3) Auditory hallucinations: Status: Resolved Reason for Visit Reason for Visit: SI Brief History: History of Present Illness Real Black is a 33 year old male who presented to the emergency department with complaints of hearing voices telling him to harm himself. The patient had reported that he had had a visit with his therapist on the day of admission and after the visit he had felt more anxious and this led to the presence of voices which cascaded into the emergence of suicidal thoughts. Patient was admitted to the neuropsychiatric unit for further evaluation and treatment. He reports that he has been less preoccupied by hallucinations since the change from his last admission in April 2023. He continues to report having occasional panic attacks lasting about 10 minutes with shortness of breath and chest pain that appear to be untriggered. Patient had continued to report that he had been smoking weed on a daily basis. He had denied any worsening depression. He did not complain of problems with regarding his energy. He had reported compliance with his current medication regimen. Patient continues to report having problems managing chronic worry. He reports that he frequently feels that the worry is out of control. He had reported that he had recently revealed in therapy about having some particular sexual fetish and reviewing that information at his therapy appointment seem to cause greater anxiety when he returned home. He reports no other substantial changes since his last admission in April 2023. He reports that he continues to receive case management services and [facility] services. Current medications: Abilify 400 mg intramuscularly every 28 days, Wellbutrin XL 300 mg daily, Depakote 1000 mg at night, hydroxyzine 25 mg twice a day, Synthroid 100 mcg daily, lisinopril 10 mg daily, metoprolol 25 mg daily, omeprazole 20 mg daily, Invega 6 mg at night, trazodone 50 mg at night NPU D/C Summary from 05/16/23 Diagnoses at Discharge Discharge Diagnosis (1) Schizoaffective disorder, depressive type: Status: Chronic (2) Suicidal ideation: Status: Resolved (3) Auditory hallucinations: Status: Resolved Reason for Visit I Brief History: History of Present Illness Real Black is a 32 year old male currently residing at the [facility] who presented to the emergency department with complaints of command auditory hallucinations telling him to kill himself. He had reported that he had been compliant with his Abilify monthly injection but states that over the past 3 to 4 days he has been having more auditory hallucinations telling him to harm himself. He states that the voices are chronically present but states that they had been more manageable but approximately 1 week till his next injection of Abilify he has been having an emerging problem of increased prevalence of the hallucinations. Patient denied any homicidal ideation and reports that he is often overwhelmed. He states that a recent stressor for him had been that he had been worried about going on vacation to [place] with his family members and stated that he was under a great deal of stress. Patient was admitted to the neuropsychiatric unit for further evaluation and treatment. He reports no substantial changes since his last hospitalization and discharged from the neuropsychiatric unit on 03/23/2023. Excerpt from NPU DISCHARGE 03/23/23 Discharge Diagnosis (1) Schizoaffective disorder, depressive type: Status: Chronic (2) Suicidal ideation: Status: Resolved (3) Auditory hallucinations: Status: Resolved Reason for Visit SI Brief History: History of Present Illness Real Black is a 32 year old male most recently hospitalized in November 2022 with a history of schizoaffective disorder who presented to the emergency department with complaints of auditory hallucinations telling him to harm himself. Patient was admitted to the neuropsychiatric unit for further diagnosis and treatment. Patient reported that he has been compliant with his medications and reports that he has recently received his monthly injection of Abilify approximately 3 days ago and states that usually his mood and his voices become quieter but reports that at this time it is not been the case. He reports that he has been hearing voices telling him to harm himself. He does endorse some depressed mood. He reports some difficulties with concentration. He had stated that he is concerned that if his medications are not adjusted that he may do something to hurt himself. Inpatient psychiatric history: Multiple inpatient hospitalizations Outpatient psychiatric history: He reports receiving [facility] services at [facility] on an outpatient basis with weekly visits Current medications: Abilify Maintena 400 mg IM every 28 days, Wellbutrin SR 200 mg daily, Depakote 1000 mg at night, hydroxyzine 25 twice a day as needed, levothyroxine 100 mcg daily, lisinopril 10 mg daily, metoprolol 25 mg daily, omeprazole 25 mg daily, Seroquel 100 mg as needed at night Allergies: Latuda, olanzapine, Haldol, Chlorpromazine, Social History: He currently lives in a jail in [facility]. See previous social history below. He reports is unchanged from most recent hospitalization. NPU Discharge Summary 11/23/22 Discharge Diagnosis (1) Schizoaffective disorder, depressive type:?Status:?Chronic(2) Suicidal ideation:?Status:?Resolved(3) Auditory hallucinations:?Status:?ChronicSI? Brief History: HPI NPU History of Present Illness Real Black is a 32 year old male who presented to the ED with the following report: Chief Complaint: Psychiatric Symptoms Stated Complaint: SI Time Seen by Provider: 11/17/22 07:11 Source: patient Mode of arrival: ambulatory Limitations: no limitations History of Present Illness:?? Patient is a 32-year-old male with a history of schizoaffective disorder here for complaints of auditory hallucinations stating that the voices are telling him to harm himself.? He states they are not telling him any specific ways to harm himself. He does state he feels like he might act on the voices.? He reports a previous suicide attempt years ago.? He states he does have a psychiatrist at [facility].? Patient is requesting hospitalization.? He denies homicidal ideations.? No visual hallucinations.? Denies drug or alcohol use.? Patient is a resident at [facility]. ? MD complaint: suicidal ideation and other (auditory hallucinations) Onset (ago): day(s) Duration: constant History of same: Yes Relieving factors: none Exacerbating factors: none Associated psychiatric symptoms: depression, suicidal ideation and auditory hallucinations Associated symptoms: Reports auditory hallucinations, depression and suicidal ideation; Deny visual hallucinations or homicidal ideation Treatments prior to arrival: none If self harm: admits thoughts of self harm He was admitted to the neuropsychiatric unit for definitive treatment of those issues.? He presents today reporting he has been doing well in general in the past 13 months with only intermittent AH occasionally with good medication adherence overall. He reports that he had been doing well until about 3 weeks ago when for some reason he cannot explain he began being more drawn to playing his video games at night and staying up.? As he was having 3 and 4-day stretches where he was having little to no sleep his hallucinations returned and they started getting worse eventually leading to him having command auditory hallucinations to harm himself but not specifically to kill himself per se.? He reports that as a got out of control he knew he needed to come in and may be get his sleep back under control and consider changes in his medication.? We discussed the risks, benefits and alternatives of him starting Abilify as we had attempted this in the past and he understood and agreed to proceed as is documented in this note.? This is in part due to the fact that increases in his Geodon have proved challenging such that he has been somewhat stuck at this 40 mg p.o. twice daily dosing.? Also he had been on several medications back then and polypharmacy was a concern but he has been able to decrease some of those medications.? We reviewed his records and identified his 10/03/2022 outpatient evaluation from [facility] as being a comprehensive exploration of his history and excerpt is included below. Per his 10/03/2022 [facility] inpatient psychiatric discharge summary: Discharge Diagnosis (1) Suicidal ideation:? ? ? Status: Acute(2) Auditory hallucinations:? ? ? Status: Acute(3) Schizoaffective disorder, depressive type:? ? ? Status: Chronic Reason for Visit Reason for Visit:??SI? Brief History: Real Black is a 31 year old male admitted to the neuropsychiatry unit for the following report. Mr. Black is a 31-year-old male with history of schizoaffective disorder presenting to the emergency department due to suicidal ideation and hallucinations.? He reports history of similar however had been doing well.? Symptoms started yesterday morning without known specific provoking factor.? He reports compliance with medication regimen and denies other associated significant changes in related depressive symptoms.? Intensity of hallucinations have been worsening.? They tell him to hurt himself.? He has had increased thoughts of hurting himself because of these voices.? Otherwise denies medical complaints.? No other specific changes in health, exacerbating, or alleviating factors identified. He was admitted to the neuropsychiatry unit for definitive treatment of these issues.? He is well known to this unit with multiple admissions.? The last admission was in June and at that time we changed him from Geodon to Invega and increased his Wellbutrin to 300 mg daily.? He feels like those changes have been working well.? He denies anything that could precipitate a worsening of his auditory hallucinations.? He says he occasionally has flareups of his hallucinations but this is much worse than normal.? He has been generally doing well since he left the hospital in June.? He reported to his therapist and psychiatric nurse practitioner that he had been doing well in recent appointments.? He denies any drug use.? He denies any stress [place].? He denies any family stress.? He says that he has been compliant with medications.? His mood has been fairly good.? He requested that his Invega be increased.? I agreed to do that for a couple of days and then reevaluate. Hospital Course He slowly acclimated to the individual, group and milieu therapies provided.? He was continued on his medications except for Invega was gradually increased to 9 mg in the morning and 6 mg at bedtime.? He had urinary incontinence on 6 mg twice a day and Cogentin was added.? He had a similar problem with Geodon.? We talked about trying a different antipsychotic but he felt that Invega was good for him and wanted to try that with the Cogentin and increase the dose.? He tolerated these doses and showed steady improvement during his stay. ? He was able to contract for safety outside hospital prior to discharge.? During the hospitalization, patient had routine laboratory studies which were within normal limits except for few outliers.? Additionally there was a general medical evaluation which was also within normal limits and revealed no new acute processes. Discharge Summary: At the time of discharge, lethality was denied and psychosis was resolving.? Mood and anxiety were well managed.? Patient endorsed a plan to follow-up with the aftercare recommendations of the treatment team.? Patient was evaluated and deemed to be absent credible lethality, and had achieved the maximum benefit from an inpatient hospitalization, so was discharged. Per his 07/07/2020 [facility] outpatient psychiatric evaluation: [facility] History and Physical Time In: 13:56 Time Out: 14:57 Chief Complaint: here for therapy and medications History of Present Illness: Information retrieved and edited from [facility] Comp. Clinical Assessment completed on: 05/26/20: anxiety and nervousness, wants therapy and medication management; moved here from [place]. Currently living at [facility], since 04/29/20. Before this arrangement, he was in [place],? living at an dermatology physician assistant living facility. He has moved several times back and forth from [place] to [place]. He is hoping his father will retire and his parents will move to [place]; they have a farm in [place]. Real had services with [facility] in 2016. Says he was inpatient due to his voices getting bad and he was suicidal. He says his current diagnosis are bipolar and now he is diagnosed with schizoaffective disorder; he is currently on medications. He is not aware if anyone in his family has bipolar or schizophrenia. He has had suicidal thoughts, chronic in nature. He tried to end his life in 2012 by hanging, reports the rope broke; previously held scissors to his throat; a cousin called him and that is what stopped him from doing it. He lived at [facility](assisted living facility in [place]) for four years, then moved to his Mom's friend's home in [place], [place]. Says he was referred to [facility] by friends of the [facility]. Reported symptoms difficulty concentrating, thoughts hard to dismiss, annoyed and irritable, nervous feeling, worries and fears. Reported symptoms difficulty concentrating, thoughts hard to dismiss, annoyed and irritable, nervous feeling, worries and fears.? Denied fatigue, pains, headache, or digestive problems. Current habits: Drinks 3 large glasses of tea per day; sometimes drinks 2 cups of coffee in the morning and 3 sodas during the day.? Currently reports he sleeps from about midnight or 1 AM up until about 8 or 9 AM; usually obtains about 5 to 6 hours of rest during that time.? He rarely takes a nap in the day.? Sometimes skips breakfast, and usually eats lunch or dinner.? He tries to walk 2 or 3 times per week (up to 1 and half to 2 miles at a time) for physical exercise. History Past Psychiatric History:? Information retrieved and edited from [facility] Comp. Clinical Assessment completed on: 05/26/20:? Real had services with [facility] in 2015; dx were: F25.1 Schizoaffective DO, Depressed Type; F15.20 Methamphetamine Use Disorder; he has had several NPU stays at [facility] N[facility]; refer to chart. Most recent inpatient hospitalization was from? 06/12/20 to 06/15/20;included suicidal ideation; depressive disorder; and schizoaffective disorder. Real says hospitalization was due to his voices getting bad and he felt suicidal.? History of chronic suicidal thoughts with a history of suicide gesture/attempt including: He tried to end his life in 2012 by hanging; the rope broke, he had scissors held to his throat; says a cousin called him and that is what stopped him from doing it. Real says every now and then his voices act up. He says he has one unrecognized male voice which tells him to do bad stuff to himself, but not to anyone else.? Usually has increased depression and anxiety in the afternoon, usually from 2 PM to 5 PM.? Reports he can a good day, and then out of the blue he doesn?t feel like doing anything; he feels worthless and down in the dumps for no reason; he says every now and then something may trigger it. He has anger problems and when he gets mad at himself, he has hurt himself in the past; hx of cutting; last time he cut himself was in 2018. He used a knife; was cutting his wrist, but hasn't cut deeply enough to be in the hospital. He expressed inability to concentrate, difficulty completing tasks, delayed responses during conversations.? Says he had ADHD as a child; reported that he attended special classes, and took Concerta, Ritalin, and Adderall.? Says the medication was beneficial at school, but usually wore off by the time he got home.? Says he is able to control ADHD symptoms as an adult. Family History: Information retrieved and edited from [facility] Comp. Clinical Assessment completed on: 05/26/20 Family Psychiatric History: Anxiety and Depression History of Suicide in the Family: No Family history of substance abuse: Alcohol (father) Past Medical History: Information retrieved and edited from [facility] Comp. Clinical Assessment completed on: 05/26/20 Primary Care Provider: Yes (Dr. Flowers); last physical exam: Within past year (05.07.20) Client's Medical History: No major medical illness Surgical Procedure: Tonsillectomy; history of foot fracture Substance Use History: Information retrieved and edited from [facility] Comp. Clinical Assessment completed on: 05/26/20 Client history of substance abuse: Alcohol (yes) Age of onset (years): 13 Pattern of use: denied current use and has not used in 3 years; Cannabis (yes) Age of onset (years): 19 Pattern of use: denied current use; has not used in 3 years ; Amphetamine (yes) Age of onset (years): 21 Pattern of use: (previous snorting and smoking it );denied current use; has not used in 3 years; Nicotine (yes) Age of onset (years): 19 Pattern of use: current use: 1 ppd Client?s drug and/or alcohol use in the last 30 days: No Social History: Information retrieved and edited from [facility] Comp. Clinical Assessment completed on: 05/26/20 Childhood history: Real was born in [place]; at age [age], his parents moved? near [place], [place]. When he was in 5th grade, he moved to [place]. He graduated high school, then moved to [place], [place]. He says he has a good childhood; his parents were in the home growing up and are still together. He is an only child. He is single; has no children. 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 History: Client denies service Abilities/Interests: tries to stay busy, likes to help others; he loves being outside; listens to music Legal Status/History: Current legal issues denied; denies previous arrests incarceration. Spiritual Pursuits: Other (he prays) Highest Education Level Reached: college (12th grade; reports he had ADHD in school and was on meds.) Academic Performance: Performance at grade level Hospital Course Hospital Course During the hospitalization, the patient had routine laboratory studies which were within normal limits. Additionally, there was a general medical evaluation which was also within normal limits and revealed no new acute processes.? Patient had complained of having increased anxiety and reported the presence of auditory hallucinations and depression. The patient was started on Lexapro and titrated up to a dose of 20 mg to target anxiety and depression with noted improvement. At the time of discharge, lethality was denied and psychosis was resolving.? Mood and anxiety were well managed.? The patient endorsed a plan to avoid all drugs of abuse and follow up with the aftercare recommendations of the treatment team.? The patient was evaluated and deemed to be absent credible lethality and had achieved the maximum benefit from an inpatient hospitalization, and so was discharged. The patient's Wellbutrin was not initiated and not recommended to continue upon discharge. It was also recommended the patient remain off of BuSpar as well has he appeared to be less anxious with the once a day Lexapro.? Involuntary Hold Information 96 Hour Hold: 96 Hour Involuntary Admission: No Mental Status Exam MSE Comments: This is an obese white male who presents in hospital scrubs with adequate grooming and fair eye contact. No abnormal movements other than mild psychomotor retardation. He was cooperative with exam and in mild to moderate distress. Speech was normal in rate and normal in prosody and volume with normal speech latency. Mood described as better. His affect appeared brighter on discharge. Thought process was linear and logical. His thought content: Patient endorsed no auditory hallucinations today. He did not appear to be responding to internal stimuli. There are no delusions reported or noted, He denied visual hallucinations. Attention and concentration appeared intact and memory appeared reliable but never formally tested. He is alert and oriented x3. Insight was partial and judgment appeared fair. Impulse control appears to be improving. . Discharge Data Studies Completed and Pending: Laboratory Results WBC 6.69 10^3/uL (3.2 9-11.43) 08/03/23 22: RBC 5.13 10^6/uL (3.8 5-5.65) 08/03/23 22:42 Hgb 15.60 g/dL (11.27 -16.99) 08/03/23 22: Hct 46.5 % (37-53) 08/03/23 22:42 MCV 90.6 fl (82-101) 08/03/23 22:42 MCH 30.4 pg (27-33) 08/03/23 22: MCHC 33.5 g/dL (30-55) 08/03/23 22: RDW 13.2 % (12.1-15.1 ) 08/03/23 22:42 Plt Count 226 10^3/cmm (157 -399) 08/03/23 22:42 MPV 9.8 fL (7.4-10.4) 08/03/23 22:42 Neut % (Auto) 54.4 % 08/03/23 22:42 Lymph % (Auto) 38.1 % 08/03/23 22:42 Wood % (Auto) 5.1 % 08/03/23 22:42 Eos % (Auto) 1.6 % 08/03/23 22:42 Baso % (Auto) 0.4 % 08/03/23 22:42 Neut # (Auto) 3.63 10^3/uL (1.8 -7.7) 08/03/23 22:42 Lymph # (Auto) 2.6 10^3/uL (0.8- 4.8) 08/03/23 22:42 Wood # (Auto) 0.3 10^3/uL (0.2- 0.9) 08/03/23 22:42 Eos # (Auto) 0.1 10^3/uL (0.0- 0.8) 08/03/23 22:42 Baso # (Auto) 0.0 10^3/uL (0.0- 0.1) 08/03/23 22:42 Nucleated RBC % (a uto) 0 % 08/03/23 22: Nucleated RBCs # 0.0 /100WBC 08/03/23 22:42 Sodium 135 mmol/L (136-1 45) L 08/03/23 22:42 Potassium 4.1 mmol/L (3.5-5 .1) 08/03/23 22:42 Chloride 102 mmol/L (98-10 7) 08/03/23 22:42 Carbon Dioxide 21 mmol/L (22-29) L 08/03/23 22:42 Anion Gap 16.1 (5-19) 08/03/23 22:42 BUN 13 mg/dL (6-20) 08/03/23 22:42 Creatinine 0.7 mg/dL (0.7-1. 2) 08/03/23 22:42 GFR Calculation 130.7 mL/min (90- 130) H 08/03/23 22:42 Glucose 109 mg/dL (65-115 ) 08/03/23 22:42 Calculated Osmolal ity 281 mOsm/kg (285- 295) L 08/03/23 22:42 Calcium 9.3 mg/dL (8.5-10 .5) 08/03/23 22:42 Total Bilirubin 0.4 mg/dL (0.15-1 .2) 08/03/23 22:42 AST 35 U/L (0-40) 08/03/23 22:42 ALT 86 U/L (0-41) H 08/03/23 22:42 Alkaline Phosphata se 37 U/L (40-130) L 08/03/23 22:42 Total Protein 7.6 g/dL (6.6-8.7 ) 08/03/23 22:42 Albumin 4.6 g/dL (3.5-5.2 ) 08/03/23 22:42 Globulin 3.0 g/dL (1.3-4.6 ) 08/03/23 22:42 TSH 4.19 uIU/mL (0.27 -4.20) 08/03/23 22:42 Urine Color Yellow (Yellow) 08/03/23 23:15 Urine Appearance Clear (CLEAR) 08/03/23 23:15 Urine pH 5 (5-7) 08/03/23 23:15 Ur Specific Gravit y 1.025 (1.005-1.0 30) 08/03/23 23:15 Urine Protein Neg (Negative) 08/03/23 23:15 Urine Glucose (UA) Norm (Normal) 08/03/23 23:15 Urine Ketones Negative (Negati ve) 08/03/23 23:15 Urine Blood Neg (Negative) 08/03/23 23:15 Urine Nitrate Negative (Negati ve) 08/03/23 23:15 Urine Bilirubin Neg (Negative) 08/03/23 23:15 Urine Urobilinogen Neg mg/dL (Negati ve) 08/03/23 23:15 Ur Leukocyte Unique ase Negative (Negati ve) 08/03/23 23:15 Salicylates < 0.3 mg/dL (3-10 ) L 08/03/23 22:42 Urine Opiates Scre en Negative ng/mL (N egative) 08/03/23 23:15 Acetaminophen < 5.0 ug/mL (10-3 0) L 08/03/23 22:42 Ur Barbiturates Sc reen Negative ng/mL (N egative) 08/03/23 23:15 Valproic Acid 25.9 ug/mL (50-10 0) L 08/03/23 22:42 Ur Phencyclidine S crn Negative ng/mL (N egative) 08/03/23 23:15 Ur Amphetamines Sc reen Negative ng/mL (N egative) 08/03/23 23:15 U Benzodiazepines Scrn Negative ng/mL (N egative) 08/03/23 23:15 Urine Cocaine Scre en Negative ng/mL (N egative) 08/03/23 23:15 U Marijuana (THC) Screen Positive ng/mL (N egative) H 08/03/23 23:15 Ethyl Alcohol < 10 mg/dL (0-10) 08/03/23 22:42 Vitals: Last Vital Signs Temp 97.5 F L 08/08/23 06:00 Pulse 108 H 08/08/23 06:00 Resp 18 08/08/23 06:00 BP 142/75 08/08/23 06:00 Pulse Ox 96 08/08/23 06:00 O2 Del Method Room Air 08/08/23 06:00 Discharge Plan Discharge Patient Disposition: Home Condition: Stable Prescriptions: New escitalopram oxalate 20 mg tablet 20 mg PO DAILY 30 Days Qty: 30 1RF Continued acetaminophen [Tylenol Extra Strength] 500 mg tablet 1,000 mg PO Q6H PRN (Reason: Pain) Abilify Maintena 400 mg suspension,extended rel recon 400 mg IM Q28D Qty: 1 5RF Rx Instructions: Administer one IM injection (400 mg) every 28 to 30 days hydroxyzine pamoate 25 mg capsule 25 mg PO BID PRN (Reason: Anxiety) Qty: 60 0RF Rx Instructions: Take 1 capsule twice daily, if needed for anxiety trazodone 50 mg tablet 50 mg PO BEDTIME PRN (Reason: Sleep) 30 Days Qty: 30 0RF Rx Instructions: Take one tablet daily at bedtime, if needed for sleep metoprolol succinate 25 mg tablet extended release 24 hr 25 mg PO DAILY loperamide 2 mg capsule 2 mg PO DAILY PRN (Reason: Diarrhea) levothyroxine [Levoxyl] 100 mcg tablet 100 mcg PO DAILY lisinopril 10 mg tablet 10 mg PO DAILY melatonin 3 mg tablet 6 mg PO BEDTIME PRN (Reason: sleep) divalproex 500 mg tablet extended release 24 hr 1,000 mg PO BEDTIME Rx Instructions: Take 2 tablets daily at bedtime paliperidone 6 mg tablet extended release 24hr 6 mg PO BEDTIME omeprazole 20 mg Capsule,Delayed Release(Dr/Ec) 20 mg PO DAILY@16 Discontinued bupropion HCl 300 mg tablet extended release 24 hr 300 mg PO DAILY Rx Instructions: Take one tablet by mouth every morning Discharge Orders: Discharge Order (Routine); Ordered 08/08/23 Ordered By: Trevor Figueroa Referrals: Patria Mckinney APRN [Nurse Practitioner] - 08/15/23 10:45 am (Follow up) Sp Flowers MD [Primary Care Provider] - Yesica Nguyen LMSW [Therapist] - 08/09/23 10:45 am Discharge Diet: Usual diet Discharge Activity: Resume usual activity Patient Instructions: Depression (DC), Suicide Prevention (DC), Opioid Safety Discharge Attestations NPU Time Spent in Discharge Care*: less than 30 min Specific Discharge Activities: Specific discharge activities: educating patient and documenting/other paperwork Status at Discharge: Cognitive status at discharge: cognitively intact, Behavioral status at discharge: cooperative, Coding Level of Care Code Acute Code for [facility] Diagnoses Schizoaffective disorder, depressive type F25.1 Suicidal ideation R45.851 Auditory hallucinations R44.0
[2023-08-08 13:27] VITALS: BP 142/75; PULSE 108; RESP 18; TEMP 36.4; O2SAT 96
== END 2023-08-08 01:33 | disposition home or self-care (01) | DRG 885 ==
LOC: ER 08-04 00:10 → NP 08-04 00:22
PROVIDERS: Admitting Provider Psychiatry & Neurology Psychiatry; Emergency Provider Emergency Medicine; PCP Family Medicine; Visit Provider Psychiatry & Neurology Psychiatry
DX: F25.1 Schizoaffective disorder, depressive type (principal); R45.851 Suicidal ideations
CPT/HCPCS: 36415; 80053; 80164; 80306; 80307; 81003; 84443; 85025; 97150; 97165; 99285

== ENCOUNTER 2023-10-30 23:20 | Emergency (ER) | payer MEDICARE, SELFPAY ==
[2023-08-28 07:51] VITALS: BP 138/86; BMI 35.8
[2023-10-30 23:22] VITALS: BP 168/91; PULSE 102; RESP 18; TEMP 36.6; O2SAT 96
--- NOTE | 2023-10-30 23:47 | XRR_ITS ---
PROCEDURE INFORMATION: Exam: XR Lumbosacral Spine Exam date and time: 10/30/2023 11:56 PM Age: 33 years old Clinical indication: Injury or trauma; Fall; Other: Pain; Additional info: Fall/low back pain TECHNIQUE: Imaging protocol: Radiologic exam of the lumbosacral spine. Views: 2 or 3 views. COMPARISON: CR XR lumbar spine 2-3V* [id number] 03/13/2021 12:41 AM FINDINGS: Bones/joints: No acute fracture. Normal alignment. Soft tissues: Unremarkable. XR/XR lumbar spine 2-3V* [id number] IMPRESSION: No acute findings.
--- NOTE | 2023-10-30 23:48 | ED_ITS ---
HPI - Back Pain/Injury General: Chief Complaint: Back Pain/Injury Stated Complaint: Lower back pain Time Seen by Provider: 10/30/23 23:21 Source: patient Mode of arrival: ambulatory Limitations: no limitations History of Present Illness: Patient is a 33-year-old male presenting to the emergency department complaining of right lower back pain onset tonight. Patient states he was stepping out of shower when he started to slip, and upon catching himself he strained his back. Has a history of doing the same in the past. He denies any bowel or bladder incontinence, saddle anesthesia, or other concerning symptoms at this time. States it is worse with movement, relieved with rest. No other symptoms to report at this time. He has not taken anything for pain at this time. MD elicited complaint: back pain Onset (ago): minute(s) Timing: constant Similar Symptoms Previously: Yes Location: right lower back Radiation: none Exacerbating factors: movement Relieving factors: immobilization Context: turning/twisting Associated symptoms: Deny abdominal pain, chills, fever(s), nausea or vomiting Review of Systems General: Reports: 10 or more systems reviewed and unremarkable except in HPI and below Const: Denies: fever(s) or chills Card: Denies: chest pain Resp: Denies: dyspnea or productive cough GI: Denies: abdominal pain, nausea, vomiting or diarrhea : Denies: flank pain Musc: Reports: back pain; Denies: neck pain, extremity pain, extremity swelling, joint pain, joint swelling, joint redness, joint warmth, limited range of motion or muscle weakness Skin/Breast: Denies: rash Neuro: Denies: headache(s), numbness in extremities or weakness in extremities PFSH ED PFSH: Medical History Psychiatric care Schizoaffective disorder, depressive type Depressive disorder Hallucination Family History Other Diabetes Hypertension Schizoaffective disorder, depressive type Social History Smoking and tobacco/nicotine status: former use of tobacco/nicotine Quit status (tobacco/nicotine): has quit using Year quit tobacco: 150 days? Second hand smoke exposure: Yes Alcohol intake: never Substance/Drug Use: never Adopted: No Caregiver/support person: Yes (sets up his medication) [facility] Household members: other Details: Multiple other residents at the facility. Housing: Assisted Living Facility Marital status: Single Number of children: 0 Number of grandchildren: 0 Highest education level completed: High School Graduate service: No Current occupational status: disabled Current occupational exposures/hazards: No Pets and animals: Yes Pets & animals: cat(s) Leisure activites: exercise, music, games and other Leisure activities details: watch TV Sexually active: Yes How many partners: 1 Are you practicing safe sex: No Do you think of yourself as: Straight/Heterosexual Current gender identity: Male Paola/Restorationist: Mormonism Special paola needs: No Agree to transfusion: Yes Physical Exam Const: COMMON NORMALS: no acute distress, patient oriented x3, no limitations, healthy appearing, alert and well nourished HENMT: COMMON NORMALS: normocephalic and atraumatic HEAD & SCALP: n ormocephalic and atraumatic Neck/C-Spine: COMMON NORMALS: full ROM, supple and no meningeal signs Resp: COMMON NORMALS: normal respiratory effort, No use of accessory muscles and clear to auscultation bilaterally AUSCULTATION: clear to auscultation bilaterally Cardio: COMMON NORMALS: regular rate and regular rhythm RATE: regular rate RHYTHM: regular rhythm Back/Pelvis: COMMON NORMALS: thoracic and lumbar spine normal to inspection, no thoracic nor lumbar tenderness and thoraco-lumbar ROM normal THORACIC SPINE/UPPER BACK: Yes normal to inspection LUMBAR SPINE/LOWER BACK: Yes normal to inspection OTHER: No obvious signs of trauma. There is no reproducible tenderness to palpation of the parathoracic or paralumbar muscles. No spinous process tenderness. Extremity: COMMON NORMALS: normal to inspection, full ROM, capillary refill normal, no joint enlargement and no clubbing, cyanosis or edema Neuro: COMMON NORMALS: patient oriented x3, moves all extremities, no focal motor deficits and no sensory deficits noted SENSORIUM/ORIENTATION: Yes alert MENINGEAL SIGNS: Yes no meningeal signs Skin: COMMON NORMALS: no rashes or lesions noted GENERAL SKIN EXAM: no rashes or lesions noted Course Vital Signs: Vital signs: Vital Signs Temperature 97.9 F 07/08/24 23:22 Pulse Rate 102 H 07/08/24 23:22 Respiratory Rate 18 10/30/23 23:22 Blood Pressure 168/91 10/30/23 23:22 Pulse Oximetry 96 10/30/23 23:22 Oxygen Delivery Me thod Room Air 10/30/23 23:22 MDM - Back Pain/Injury Medical Decision Making Patient presented with right lower back pain after sudden twisting while falling out of the shower. There was no trauma reported, pain was noted during a twisting motion. Had not taken anything for symptoms prior to arrival. Patient was still ambulatory without any red flag back symptoms. He was given shot of Norflex and Toradol and upon recheck states he felt better. X-ray did not demonstrate any acute findings. Likely has a low back strain and he is encouraged to gently increase his range of motion and take Tylenol and ibuprofen at home. He will follow-up with primary care and return with any new or worsening. XR interpretation done by ED provider, pending radiology final review Discharge Plan Discharge Patient Disposition: Home Clinical Impression: Back strain Condition: Stable Prescriptions: No Action acetaminophen [Tylenol Extra Strength] 500 mg tablet 1,000 mg PO Q6H PRN (Reason: Pain) Abilify Maintena 400 mg suspension,extended rel recon 400 mg IM Q28D Qty: 1 5RF Rx Instructions: Administer one IM injection (400 mg) every 28 to 30 days divalproex 500 mg tablet extended release 24 hr 1,000 mg PO BEDTIME Qty: 60 5RF Rx Instructions: Take 2 tablets daily at bedtime escitalopram oxalate 20 mg tablet 20 mg PO DAILY 30 Days Qty: 30 5RF Rx Instructions: Take one tablet by mouth once daily hydroxyzine pamoate 25 mg capsule 25 mg PO BID PRN (Reason: Anxiety) Qty: 60 5RF Rx Instructions: Take 1 capsule twice daily, if needed for anxiety melatonin 3 mg tablet 6 mg PO BEDTIME PRN (Reason: sleep) Qty: 60 5RF Rx Instructions: Take two tablets at bedtime, if needed for sleep paliperidone 6 mg tablet extended release 24hr 6 mg PO BEDTIME Qty: 30 5RF Rx Instructions: Tae one tablet daily at bedtime paliperidone 1.5 mg tablet extended release 24hr See Rx Instructions PO DAILY Qty: 30 5RF Rx Instructions: Take 1 tablet once a day, if needed for psychosis/hallucinations trazodone 50 mg tablet 50 mg PO BEDTIME PRN (Reason: Sleep) Qty: 30 5RF Rx Instructions: Take one tablet daily at bedtime, if needed for sleep metoprolol succinate 25 mg tablet extended release 24 hr 25 mg PO DAILY levothyroxine [Levoxyl] 100 mcg tablet 100 mcg PO DAILY lisinopril 10 mg tablet 10 mg PO DAILY omeprazole 20 mg Capsule,Delayed Release(Dr/Ec) 20 mg PO DAILY@16 Discharge Orders: Discharge ED (Routine); Ordered 10/31/23 Ordered By: Johnnie Sheppard Referrals: Sp Flowers MD [Primary Care Provider] - Discharge Diet: Usual diet Discharge Activity: Increase activity as tolerated Patient Instructions: Low Back Strain (ED) Activity Restrictions/Additional Instructions: Tylenol and ibuprofen at home. Ice to the area for added relief. Gentle range of motion exercises as tolerated. Please follow-up with primary care and return with any new or worsening. Coding Level of Care Code ED Gasfitter for Keny Ying
[2023-10-30] MEDS: ketorolac 60 mg/2 mL INJ IM (23:54)
[2023-10-30] MEDS: orphenadrine 30 mg/mL Inj 2 mL 60 MG IM (23:54)
[2023-10-31 00:40] VITALS: BP 168/91; PULSE 102; RESP 18; TEMP 36.6; O2SAT 96
== END 2023-10-31 00:41 | disposition home or self-care (01) ==
PROVIDERS: Emergency Provider Physician Assistant; PCP Family Medicine
DX: S39.012A Strain of muscle, fascia and tendon of lower back, initial encounter (principal); Z87.891 Personal history of nicotine dependence; W18.49XA Other slipping, tripping and stumbling without falling, initial encounter
CPT/HCPCS: 72100; 96372; 99284; J1885; J2360

== ENCOUNTER → 2023-11-16 11:42 | Outpatient (BNVA) | payer MEDICARE, SELFPAY ==
[2023-08-28 07:51] VITALS: BP 138/86; BMI 35.8
== END ==
PROVIDERS: PCP Family Medicine; Visit Provider Nurse Practitioner Psychiatric/Mental Health
DX: Z79.899 Other long term (current) drug therapy (principal)
CPT/HCPCS: 80061; 83036

== ENCOUNTER 2024-03-05 21:55 | Emergency (ER) | payer MEDICARE, SELFPAY ==
[2023-11-22 08:34] VITALS: BP 139/96; BMI 34.1
[2024-03-05 22:17] VITALS: BP 134/85; PULSE 87; RESP 16; TEMP 36.6; O2SAT 95; BMI 34.0
[2024-03-05 22:45] LABS: Bilirubin Urine Negative (Negative); Blood Urine Negative (Negative); Glucose Urine UA Negative (Normal); Ketones Urine Negative (Negative); Leukocyte Esterase Urine Negative (Negative); Nitrate Urine Negative (Negative); Protein Urine Trace (Negative); Specific Gravity, Urine 1.021 (1.005-1.030); Urine Appearance Clear (CLEAR); Urine Color Yellow (Yellow); pH Urine 6.5 (5-7)
[2024-03-05 22:48] LABS: Bacteria Urine None Seen /hpf; RBC Urine 0-2 /hpf (0-2); Squamous Epithelial Cell Urine 0-5 /hpf (0-5); WBC Urine 0-5 /hpf (0-5)
[2024-03-05 22:52] LABS: Amphetamines Screen Urine Negative (Negative); Barbiturates Screen Urine Negative (Negative); Benzodiazepines Screen Urine Negative (Negative); Cocaine Screen Urine Negative (Negative); Opiate Screen Urine Negative (Negative); PCP Screen Urine Negative (Negative); THC Screen Urine Positive (Negative)
--- NOTE | 2024-03-05 22:52 | ECG_ITS ---
[facility] Date: 2024-03-05 Pat Name: Real Black Department: Room: Gender: Male Security Dispatcher: : 1990 Requested By: Princess Hernandez Order Number: [id number] Omero MD: Avery Branch M.D. Measurements Intervals [place] Rate: 67 P: 28 [place]: 175 QRS: 58 QRSD: 94 T: 55 QT: 394 QTc: 418 Interpretive Statements SINUS RHYTHM diffuse early repolarization changes Compared to ECG 05/01/2022 00:12:32 No significant changes Electronically Signed On 03-07-2024 21:42:51 EQUINE PHARMACOLOGY TECHNICIAN by Avery Branch M.D. [email or web address]
[2024-03-05 23:06] LABS: Basophils % 0.1 %; Eosinophils # 0.1 10^3/uL (0.0-0.8); Eosinophils % 1.7 %; Hematocrit 45.8 % (37-53); Lymphocytes # 2.7 10^3/uL (0.8-4.8); Lymphocytes % 39.7 %; Mean Corpuscular HGB Conc 33.4 g/dL (30-55); Mean Corpuscular Hemoglobin 30.2 pg (27-33); Mean Corpuscular Volume 90.5 fl (82-101); Mean Platelet Volume 9.9 fL (7.4-10.4); Monocytes # 0.3 10^3/uL (0.2-0.9); Monocytes % 4.5 %; Neutrophils # 3.71 10^3/uL (1.8-7.7); Neutrophils % 53.9 %; Nucleated Red Blood Cells % 0 %; Platelet Count 196 10^3/cmm (157-399); Red Blood Count 5.06 10^6/uL (3.85-5.65); Red Cell Distribution Width 12.6 % (12.1-15.1)
--- NOTE | 2024-03-05 23:08 | ED.C_ITS ---
HPI - Psych 2 General: Chief Complaint: Psychiatric Symptoms Stated Complaint: SI Time Seen by Provider: 03/05/24 22:30 History of Present Illness: 33-year-old man with a history of hypert ension, hypothyroidism depression and schizoaffective disorder and hallucinations who presents the emergency room with hallucinations and suicidal thoughts. He says voices are telling him to hurt himself. He says he has been taking his medications as instructed. Related Data Home Medications Medication Instructions Recorded Confirmed acetaminophen 500 mg tablet 1,000 mg PO Q6H PRN Pain 08/03/20 01/29/24 (Tylenol Extra Strength) metoprolol succinate 25 mg 25 mg PO DAILY 12/15/20 01/29/24 tablet,extended release 24 hr omeprazole 20 mg capsule,delayed 20 mg PO DAILY@16 09/28/21 01/29/24 release levothyroxine 100 mcg tablet 100 mcg PO DAILY 11/17/22 01/29/24 (Levoxyl) lisinopril 10 mg tablet 10 mg PO DAILY 11/17/22 01/29/24 Previous Rx's Medication Instructions Recorded aripiprazole 400 mg intramuscular 400 mg IM Q28D #1 ea 10/23/23 suspension,extended release (Abilifcatherine Maintena) divalproex 500 mg tablet,extended 1,000 mg (2 x 500 mg) PO BEDTIME 10/23/23 release 24 hr #60 tabs escitalopram oxalate 20 mg tablet 20 mg PO DAILY 30 days #30 tabs 10/23/23 hydroxyzine pamoate 25 mg capsule 25 mg PO BID PRN Anxiety #60 caps 10/23/23 melatonin 3 mg tablet 6 mg (2 x 3 mg) PO BEDTIME PRN 10/23/23 sleep #60 tabs paliperidone 1.5 mg See Rx Instructions PO DAILY 10/23/23 tablet,extended release 24 hr psychosis/hallucinations #30 tabs paliperidone 6 mg tablet,extended 6 mg PO BEDTIME psychosis #30 tabs 10/23/23 release 24 hr trazodone 50 mg tablet 50 mg PO BEDTIME PRN Sleep #30 tabs 10/23/23 Allergies Allergy/AdvReac Type Severity Reaction Status Date / Time chlorpromazine Allergy Severe ALGY-Anaphy Verified 01/29/24 13:19 laxis haloperidol [From Haldol] Allergy Severe ALGY-Swell Verified 01/29/24 13:19 Lip/Tongue/Throat lurasidone [From Latuda] Allergy Severe ALGY-Swell Verified 01/29/24 13:19 Lip/Tongue/Throat olanzapine [From Zyprexa] Allergy Severe ALGY-Swell Verified 01/29/24 13:19 Lip/Tongue/Throat Review of Systems 2 Narrative: Constitutional symptoms: Negative except as documented in HPI. Skin symptoms: Negative except as documented in HPI. Eye symptoms: Negative except as documented in HPI. ENMT symptoms: Negative except as documented in HPI. Respiratory symptoms: Negative except as documented in HPI. Cardiovascular symptoms: Negative except as documented in HPI. Gastrointestinal symptoms: Negative except as documented in HPI. Genitourinary symptoms: Negative except as documented in HPI. Musculoskeletal symptoms: Negative except as documented in HPI. Neurologic symptoms: Negative except as documented in HPI. Psychiatric symptoms: Negative except as documented in HPI. Endocrine symptoms: Negative except as documented in HPI. PFSH ED 2 PFSH: Medical History (Updated 03/05/24 @ 23:52 by Princess Nix MD) Cannabis dependence Psychiatric care Schizoaffective disorder, depressive type Depressive disorder Hallucination Family History Other Diabetes Hypertension Schizoaffective disorder, depressive type Social History Smoking and tobacco/nicotine status: former use of tobacco/nicotine Quit status (tobacco/nicotine): has quit using Year quit tobacco: 150 days? Second hand smoke exposure: Yes Alcohol intake: never Substance/Drug Use: never Adopted: No Caregiver/support person: Yes (sets up his medication) Lives independently: [facility] Household members: other Details: Multiple other residents at the facility. Housing: Assisted Living Facility Marital status: Single Number of children: 0 Number of grandchildren: 0 Highest education level completed: High School Graduate service: No Current occupational status: disabled Current occupational exposures/hazards: No Pets and animals: Yes Pets & animals: cat(s) Leisure activites: exercise, music, games and other Leisure activities details: watch TV Sexually active: Yes How many partners: 1 Are you practicing safe sex: No Do you think of yourself as: Straight/Heterosexual Current gender identity: Male Paola/Bahai: Caodaism Special paola needs: No Agree to transfusion: Yes Physical Exam 2 Narrative: EXAM NARRATIVE: General: Alert. no acute distress Skin: Warm, dry Head: Normocephalic, atraumatic. Neck: Supple, trachea midline. Eye: Extraocular movements are intact. Ears, nose, mouth and throat: Oral mucosa moist. Cardiovascular: Regular rate and rhythm, Normal peripheral perfusion. Respiratory: Lungs are clear to auscultation, respirations are non-labored, breath sounds are equal, Symmetrical chest wall expansion. Gastrointestinal: Soft, Nontender, Non distended, Normal bowel sounds. Musculoskeletal: Normal ROM, no deformity. Neurological: Alert and oriented to person, place, time, and situation, No focal neurological deficit observed. Psychiatric: Cooperative, depressed, expresses suicidal ideation. Endorses hallucination Course 2 Vital Signs: Vital signs: Vital Signs Temperature 97.9 F 03/05/24 22:17 Pulse Rate 87 03/05/24 22:17 Respiratory Rate 16 03/05/24 22:17 Blood Pressure 134/85 03/05/24 22:17 Pulse Oximetry 95 03/05/24 22:17 Oxygen Delivery Me thod Room Air 03/05/24 22:17 MDM - Psych Medical Decision Making Medical decision making: Differential diagnosis for patient with reported suicidal ideation, hallucination psychosis with plan for psychiatric admission including but not limited to and based on the above HPI, review of systems and physical exam: concerns for infection, alcohol intoxication, cardiac issues or other medical problems prior to psychiatric admission. Orders placed to evaluate differential diagnosis based on the above differential, HPI and physical exam labwork, ekg ordered to evaluate the pathologies and to clear the patient medically prior to psychiatric admission EKG: Time 2252. Rate 67. Normal sinus rhythm, No ST-T changes, no ectopy, normal [place] & QRS intervals, This was reviewed and interpreted by myself the ER physician at 2258 Lab Review: Laboratory results were reviewed and interpreted by myself the emergency room physician. - Medically cleared. - EKG shows no ischemic changes. - Blood alcohol level is negative, as well as salicylate and Tylenol. - Drug screen is positive for marijuana - No signs of infection, urinalysis clear and white count is not elevated - No anemia. - BUN and creatinine are within normal limits. ?Flu, COVID and RSV are negative Assessment and plan: Hallucination Suicidal ideation ? 96-hour hold patient has endorsed suicidal thoughts. -Patient needs admission to neuropsychiatric unit for continued evaluation and treatment, currently no beds but also no transportation so we will hold here and possibly get him admitted tomorrow. - All lab work was reviewed and interpreted personally by myself, the ER physician - Evaluation and treatment of this problem were appropriate in the emergency setting Lab Data 03/05/24 22:57 03/05/24 22:57 Laboratory Results WBC 6.90 10^3/uL (3.29-11.43) 03/05/24 22:57 RBC 5.06 10^6/uL (3.85-5.65) 03/05/24 22:57 Hgb 15.30 g/dL (11.27-16.99) 03/05/24 22:57 Hct 45.8 % (37-53) 03/05/24 22:57 MCV 90.5 fl (82-101) 03/05/24 22:57 MCH 30.2 pg (27-33) 03/05/24 22:57 MCHC 33.4 g/dL (30-55) 03/05/24 22:57 RDW 12.6 % (12.1-15.1) 03/05/24 22:57 Plt Count 196 10^3/cmm (157-399) 03/05/24 22:57 MPV 9.9 fL (7.4-10.4) 03/05/24 22:57 Neut % (Auto) 53.9 % 03/05/24 22:57 Lymph % (Auto) 39.7 % 03/05/24 22:57 [place] % (Auto) 4.5 % 03/05/24 22:57 Eos % (Auto) 1.7 % 03/05/24 22:57 Baso % (Auto) 0.1 % 03/05/24 22:57 Neut # (Auto) 3.71 10^3/uL (1.8-7.7) 03/05/24 22:57 Lymph # (Auto) 2.7 10^3/uL (0.8-4.8) 03/05/24 22:57 [place] # (Auto) 0.3 10^3/uL (0.2-0.9) 03/05/24 22:57 Eos # (Auto) 0.1 10^3/uL (0.0-0.8) 03/05/24 22:57 Baso # (Auto) 0.0 10^3/uL (0.0-0.1) 03/05/24 22:57 Nucleated RBC % (auto) 0 % 03/05/24 22:57 Nucleated RBCs # 0.0 /100WBC 03/05/24 22:57 Sodium 138 mmol/L (136-145) 03/05/24 22:57 Potassium 3.9 mmol/L (3.5-5.1) 03/05/24 22:57 Chloride 103 mmol/L (98-107) 03/05/24 22:57 Carbon Dioxide 24 mmol/L (22-29) 03/05/24 22:57 Anion Gap 14.9 (5-19) 03/05/24 22:57 BUN 14 mg/dL (6-20) 03/05/24 22:57 Creatinine 0.6 mg/dL (0.7-1.2) L 03/05/24 22:57 GFR Calculation 156.1 mL/min (90-130) H 03/05/24 22:57 Glucose 104 mg/dL (65-115) 03/05/24 22:57 Calculated Osmolality 287 mOsm/kg (285-295) 03/05/24 22:57 Calcium 8.7 mg/dL (8.5-10.5) 03/05/24 22:57 Total Bilirubin 0.2 mg/dL (0.15-1.2) 03/05/24 22:57 AST 19 U/L (0-40) 03/05/24 22:57 ALT 28 U/L (0-41) 03/05/24 22:57 Alkaline Phosphatase 30 U/L (40-130) L 03/05/24 22:57 Total Protein 7.1 g/dL (6.6-8.7) 03/05/24 22:57 Albumin 4.5 g/dL (3.5-5.2) 03/05/24 22:57 Globulin 2.6 g/dL (1.3-4.6) 03/05/24 22:57 TSH 4.12 uIU/mL (0.27-4.20) 03/05/24 22:57 Urine Color Yellow (Yellow) 03/05/24 22:08 Urine Appearance Clear (CLEAR) 03/05/24 22:08 Urine pH 6.5 (5-7) 03/05/24 22:08 Ur Specific [place] 1.021 (1.005-1.030) 03/05/24 22:08 Urine Protein Trace (Negative) A 03/05/24 22:08 Urine Glucose (UA) Negative (Normal) 03/05/24 22:08 Urine Ketones Negative (Negative) 03/05/24 22:08 Urine Blood Negative (Negative) 03/05/24 22:08 Urine Nitrate Negative (Negative) 03/05/24 22:08 Urine Bilirubin Negative (Negative) 03/05/24 22:08 Urine Urobilinogen 1.0 mg/dL (Negative) 03/05/24 22:08 Ur Leukocyte Esterase Negative (Negative) 03/05/24 22:08 Urine RBC 0-2 /hpf (0-2) 03/05/24 22:08 Urine WBC 0-5 /hpf (0-5) 03/05/24 22:08 Ur Squamous Epith Cells 0-5 /hpf (0-5) 03/05/24 22:08 Amorphous Sediment Not Reportable 03/05/24 22:08 Urine Bacteria None seen /hpf (NONE) 03/05/24 22:08 Hyaline Casts 0.40 /lpf 03/05/24 22:08 Salicylates < 0.3 mg/dL (3-10) L 03/05/24 22:57 Urine Opiates Screen Negative ng/mL (Negative) 03/05/24 22:08 Acetaminophen < 5.0 ug/mL (10-30) L 03/05/24 22:57 Ur Barbiturates Screen Negative ng/mL (Negative) 03/05/24 22:08 Ur Phencyclidine Scrn Negative ng/mL (Negative) 03/05/24 22:08 Ur Amphetamines Screen Negative ng/mL (Negative) 03/05/24 22:08 U Benzodiazepines Scrn Negative ng/mL (Negative) 03/05/24 22:08 Urine Cocaine Screen Negative ng/mL (Negative) 03/05/24 22:08 U Marijuana (THC) Screen Positive ng/mL (Negative) H 03/05/24 22:08 Ethyl Alcohol < 10 mg/dL (0-10) 03/05/24 22:57 Coronavirus (PCR) Negative (Negative) 03/05/24 22:40 Influenza A (PCR) Negative (Negative) 03/05/24 22:40 Influenza Type B (PCR) Negative (Negative) 03/05/24 22:40 RSV (PCR) Negative (Negative) 03/05/24 22:40 No radiology studies performed this visit Discharge Plan Discharge Patient Disposition: Admitted As Inpatient Clinical Impression: Suicidal ideation, Hallucination Condition: Stable Coding Level of Care Code ED Diversity Specialist for Keny Ying
[2024-03-05 23:23] LABS: Covid PCR NEGATIVE (Negative); Influenza A NEGATIVE (Negative); Influenza B NEGATIVE (Negative); Respiratory Syncytial Virus Ce NEGATIVE (Negative)
[2024-03-05 23:31] LABS: Alanine Aminotransferase 28 U/L (0-41); Albumin Level 4.5 g/dL (3.5-5.2); Alkaline Phosphatase 30 U/L (40-130); Anion Gap 14.9 (5-19); Aspartate Amino Transferase 19 U/L (0-40); Blood Urea Nitrogen 14 mg/dL (6-20); Calcium 8.7 mg/dL (8.5-10.5); Carbon Dioxide 24 mmol/L (22-29); Chloride 103 mmol/L (98-107); Globulin 2.6 g/dL (1.3-4.6); Glomerular Filtration Rate 156.1 mL/min (90-130); Glucose 104 mg/dL (65-115); Osmolality Calculated 287 mOsm/kg (285-295); Potassium 3.9 mmol/L (3.5-5.1); Sodium 138 mmol/L (136-145); Thyroid Stimulating Hormone 4.12 uIU/mL (0.27-4.20); Total Bilirubin 0.2 mg/dL (0.15-1.2); Total Protein 7.1 g/dL (6.6-8.7)
[2024-03-05 23:36] LABS: Acetaminophen < 5.0 ug/mL (10-30); Alcohol Level < 10 mg/dL (0-10); Salicylate < 0.3 mg/dL (3-10)
[2024-03-06 05:38] VITALS: BP 157/101; PULSE 86; O2SAT 97
--- NOTE | 2024-03-06 06:32 | DCPLANNER ---
THE CHART HAS BEEN FAXED TO THE FOLLOWING PLACES. [facility], [facility]
--- NOTE | 2024-03-06 08:46 | PC.NURSE ---
this nurse spoke with Yvette from [facility] in [place] @[phone] regarding placement. states accepted to bed 34-A Unit 3. Provider accepting: Carlos Manuel; unit # to call report to [phone]. Yvette states to send x2 patients at same time during transport.
--- NOTE | 2024-03-06 09:22 | PC.NURSE ---
report called to Betsy at [facility] in [place].
[2024-03-06 09:30] VITALS: BP 130/75; PULSE 96; TEMP 36.4; O2SAT 97
--- NOTE | 2024-03-06 09:52 | PC.PHAR ---
patient is from [facility], faxed over the physician orders this morning and used that to verify med list
[2024-03-06 14:00] VITALS: BP 140/84; PULSE 101; TEMP 36.4; O2SAT 97
== END 2024-03-06 19:00 | disposition admitted as inpatient to this hospital (09) ==
PROVIDERS: Emergency Provider Emergency Medicine; PCP Family Medicine
DX: R45.851 Suicidal ideations (principal); R44.3 Hallucinations, unspecified; Z11.52 Encounter for screening for COVID-19; Z87.891 Personal history of nicotine dependence
CPT/HCPCS: 0241U; 36415; 80053; 80306; 80307; 81001; 84443; 85025; 93005; 99285

== ENCOUNTER → 2024-04-29 13:31 | Outpatient (BNVA) | payer OTHER, SELFPAY ==
[2023-11-22 08:34] VITALS: BP 139/96; BMI 34.1
== END ==
PROVIDERS: PCP Family Medicine; Visit Provider Nurse Practitioner Psychiatric/Mental Health
DX: Z51.81 Encounter for therapeutic drug level monitoring (principal)
CPT/HCPCS: 80164

== ENCOUNTER 2024-06-16 21:23 | Emergency (ER) | payer MEDICARE, MEDICAID, SELFPAY ==
[2023-11-22 08:34] VITALS: BP 139/96; BMI 34.1
[2024-06-16 21:26] VITALS: BP 128/79; PULSE 82; RESP 17; TEMP 36.6; O2SAT 97; BMI 33.2
[2024-06-16 22:03] LABS: Basophils % 0.3 %; Eosinophils # 0.1 10^3/uL (0.0-0.8); Eosinophils % 1.5 %; Hematocrit 45.4 % (37-53); Lymphocytes # 2.3 10^3/uL (0.8-4.8); Mean Corpuscular HGB Conc 33.9 g/dL (30-55); Mean Corpuscular Volume 91.3 fl (82-101); Monocytes # 0.3 10^3/uL (0.2-0.9); Monocytes % 5.1 %; Neutrophils # 3.86 10^3/uL (1.8-7.7); Neutrophils % 57.9 %; Nucleated Red Blood Cells % 0 %; Platelet Count 173 10^3/cmm (157-399); Red Blood Count 4.97 10^6/uL (3.85-5.65); Red Cell Distribution Width 12.5 % (12.1-15.1); White Blood Count 6.66 10^3/uL (3.29-11.43)
[2024-06-16 22:27] LABS: Add Urine Microscopic? NO
[2024-06-16 22:28] LABS: Alanine Aminotransferase 26 U/L (0-41); Albumin Level 4.4 g/dL (3.5-5.2); Alkaline Phosphatase 27 U/L (40-130); Aspartate Amino Transferase 16 U/L (0-40); Blood Urea Nitrogen 13 mg/dL (6-20); Calcium 9.1 mg/dL (8.5-10.5); Carbon Dioxide 24 mmol/L (22-29); Chloride 103 mmol/L (98-107); Globulin 2.8 g/dL (1.3-4.6); Glomerular Filtration Rate 156.1 mL/min (90-130); Glucose 107 mg/dL (65-115); Osmolality Calculated 287 mOsm/kg (285-295); Sodium 138 mmol/L (136-145); Total Bilirubin 0.5 mg/dL (0.15-1.2); Total Protein 7.2 g/dL (6.6-8.7)
[2024-06-16 22:29] LABS: Acetaminophen < 5.0 ug/mL (10-30); Alcohol Level < 10 mg/dL (0-10); Salicylate < 0.3 mg/dL (3-10); Thyroid Stimulating Hormone 2.57 uIU/mL (0.27-4.20)
[2024-06-16 22:30] LABS: Bilirubin Urine Negative (Negative); Blood Urine Negative (Negative); Glucose Urine UA Negative (Normal); Ketones Urine Negative (Negative); Leukocyte Esterase Urine Negative (Negative); Nitrate Urine Negative (Negative); Protein Urine Negative (Negative); Specific Gravity, Urine 1.016 (1.005-1.030); Urine Appearance Clear (CLEAR); Urine Color Yellow (Yellow); pH Urine 7.5 (5-7)
[2024-06-16 22:38] LABS: Amphetamines Screen Urine Negative (Negative); Barbiturates Screen Urine Negative (Negative); Benzodiazepines Screen Urine Negative (Negative); Cocaine Screen Urine Negative (Negative); Opiate Screen Urine Negative (Negative); PCP Screen Urine Negative (Negative); THC Screen Urine Positive (Negative)
[2024-06-16 22:39] LABS: Charge for UA Resulting for Rev
--- NOTE | 2024-06-16 22:52 | W.ED.PSYCHS ---
HPI - Psych General: Chief Complaint: Psychiatric Symptoms Stated Complaint: SI Time Seen by Provider: 06/16/24 21:35 History of Present Illness: 33-year-old male patient with a history of schizoaffective disorder. He has had an increase in auditory hallucinations of late. Today they were telling him he should end his life. He currently does not want to, but is considering giving in to the voices. He is wanting help/treatment. He says that he has hypertension for which she takes metoprolol is his only other medical condition. Related Data Home Medications ?Medication ?Instructions ?Recorded ?Confirmed acetaminophen 500 mg tablet 1,000 mg PO Q6H PRN Pain 08/03/20 05/30/24 (Tylenol Extra Strength) metoprolol succinate 25 mg 25 mg PO DAILY 12/15/20 05/30/24 tablet,extended release 24 hr omeprazole 20 mg capsule,delayed 20 mg PO DAILY@16 09/28/21 05/30/24 release levothyroxine 100 mcg tablet 100 mcg PO DAILY 11/17/22 05/30/24 (Levoxyl) lisinopril 10 mg tablet 10 mg PO DAILY 11/17/22 05/30/24 ibuprofen 800 mg tablet 800 mg PO Q8H 03/06/24 05/30/24 loperamide 2 mg capsule 2 mg PO DAILY 03/06/24 05/30/24 bismuth subsalicylate 525 mg/15 mL 1,050 mg PO Q30M PRN 04/29/24 05/30/24 oral suspension (Pepto-Bismol Max St) Previous Rx's ?Medication ?Instructions ?Recorded hydroxyzine pamoate 25 mg capsule 25 mg PO BID PRN Anxiety #60 caps 10/23/23 melatonin 3 mg tablet 6 mg (2 x 3 mg) PO BEDTIME PRN 10/23/23 sleep #60 tabs aripiprazole 400 mg intramuscular 400 mg IM Q28D #1 ea 04/29/24 suspension,extended release (Abilify Maintena) divalproex 500 mg tablet,extended 1,000 mg (2 x 500 mg) PO BEDTIME 04/29/24 release 24 hr #60 tabs escitalopram oxalate 20 mg tablet 20 mg PO DAILY 30 days #30 tabs 04/29/24 paliperidone 1.5 mg See Rx Instructions PO DAILY 04/29/24 tablet,extended release 24 hr psychosis/hallucinations #30 tabs paliperidone 6 mg tablet,extended 6 mg PO BEDTIME psychosis #30 tabs 04/29/24 release 24 hr trazodone 50 mg tablet 50 mg PO BEDTIME PRN Sleep #30 tabs 04/29/24 Allergies Allergy/AdvReac Type Severity Reaction Status Date / Time chlorpromazine Allergy Severe ALGY-Anaphy Verified 06/16/24 21:29 laxis haloperidol (From Haldol) Allergy Severe ALGY-Swell Verified 06/16/24 21:29 Lip/Tongue/Throat lurasidone (From Latuda) Allergy Severe ALGY-Swell Verified 06/16/24 21:29 Lip/Tongue/Throat olanzapine (From Zyprexa) Allergy Severe ALGY-Swell Verified 06/16/24 21:29 Lip/Tongue/Throat PFSH ED PFSH: Medical History Cannabis dependence Psychiatric care Schizoaffective disorder, depressive type Depressive disorder Hallucination Family History Other Diabetes Hypertension Schizoaffective disorder, depressive type Social History Smoking and tobacco/nicotine status: former use of tobacco/nicotine Quit status (tobacco/nicotine): has quit using Year quit tobacco: 150 days? Second hand smoke exposure: Yes Alcohol intake: never Substance/Drug Use: never Adopted: No Caregiver/support person: Yes (sets up his medication) Lives independently: No (Staying at [facility]) Household members: other Details: Multiple other residents at the facility. Housing: Assisted Living Facility Marital status: Single Number of children: 0 Number of grandchildren: 0 Highest education level completed: High School Graduate service: No Current occupational status: disabled Current occupational exposures/hazards: No Pets and animals: Yes Pets & animals: cat(s) Leisure activites: exercise, music, games and other Leisure activities details: watch TV Sexually active: Yes How many partners: 1 Are you practicing safe sex: No Do you think of yourself as: Straight/Heterosexual Current gender identity: Male Paola/Druze: [employer] Special paola needs: No Agree to transfusion: Yes Physical Exam Const: COMMON NORMALS: no acute distress GENERAL APPEARANCE: cooperative; not ill appearing and not frail appearing HENMT: COMMON NORMALS: normocephalic, atraumatic and Normal external nose present HEAD & SCALP: normocephalic and atraumatic FACE & SINUS: normal facial exam and face symmetric NOSE: Normal external nose present Eye: COMMON NORMALS: Equal, round and reactive pupils present and EOMs intact bilaterally PUPIL: Yes Equal, round and reactive pupils present Neck/C-Spine: GENERAL: Yes trachea midline Chest: CHEST: Yes Symmetrical chest wall rise Resp: COMMON NORMALS: normal respiratory effort, No retractions, No use of accessory muscles and clear to auscultation bilaterally AUSCULTATION: clear to auscultation bilaterally Cardio: COMMON NORMALS: regular rate and regular rhythm RATE: regular rate RHYTHM: regular rhythm GI: COMMON NORMALS: Normal to inspection, nondistended, normoactive bowel sounds present Extremity: COMMON NORMALS: no pedal edema Neuro: TRISHA COMA SCALE: document GCS findings [place] coma scale eye opening: Spontaneous [place] coma scale verbal response: Orientated Trisha coma scale motor response: Obey commands [place] coma scale total score: 15 SENSORY EXAM: Yes extremities (intact) Psych: COMMON NORMALS: speech normal SPEECH: Yes normal speech Skin: COMMON NORMALS: no rashes or lesions noted GENERAL SKIN EXAM: no rashes or lesions noted Course Vital Signs: Vital signs: Vital Signs Temperature 98 F 06/16/24 21:26 Pulse Rate 82 06/16/24 21:26 Respiratory Rate 17 06/16/24 21:26 Blood Pressure 128/79 06/16/24 21:26 Pulse Oximetry 97 06/16/24 21:26 Oxygen Delivery Me thod Room Air 06/16/24 21:26 MDM - Psych Medical Decision Making Laboratory not remarkable. Vitals are stable. Urine drug screen positive for marijuana only. He is not intoxicated. We have no beds available at our facility currently. Will attempt to find a bed. Medically he is stable. Patient has been accepted at [facility]. He remains medically stable. He will go by ambulance a bit later this morning. Lab Data 06/16/24 21:56 06/16/24 21:56 Laboratory Results WBC 6.66 10^3/uL (3.29-11.43) 06/16/24 21:56 RBC 4.97 10^6/uL (3.85-5.65) 06/16/24 21:56 Hgb 15.40 g/dL (11.27-16.99) 06/16/24 21:56 Hct 45.4 % (37-53) 06/16/24 21:56 MCV 91.3 fl (82-101) 06/16/24 21:56 MCH 31.0 pg (27-33) 06/16/24 21:56 MCHC 33.9 g/dL (30-55) 06/16/24 21:56 RDW 12.5 % (12.1-15.1) 06/16/24 21:56 Plt Count 173 10^3/cmm (157-399) 06/16/24 21:56 MPV 10.0 fL (7.4-10.4) 06/16/24 21:56 Neut % (Auto) 57.9 % 06/16/24 21:56 Lymph % (Auto) 35.0 % 06/16/24 21:56 [place] % (Auto) 5.1 % 06/16/24 21:56 Eos % (Auto) 1.5 % 06/16/24 21:56 Baso % (Auto) 0.3 % 06/16/24 21:56 Neut # (Auto) 3.86 10^3/uL (1.8-7.7) 06/16/24 21:56 Lymph # (Auto) 2.3 10^3/uL (0.8-4.8) 06/16/24 21:56 [place] # (Auto) 0.3 10^3/uL (0.2-0.9) 06/16/24 21:56 Eos # (Auto) 0.1 10^3/uL (0.0-0.8) 06/16/24 21:56 Baso # (Auto) 0.0 10^3/uL (0.0-0.1) 06/16/24 21:56 Nucleated RBC % (auto) 0 % 06/16/24 21:56 Nucleated RBCs # 0.0 /100WBC 06/16/24 21:56 Sodium 138 mmol/L (136-145) 06/16/24 21:56 Potassium 4.0 mmol/L (3.5-5.1) 06/16/24 21:56 Chloride 103 mmol/L (98-107) 06/16/24 21:56 Carbon Dioxide 24 mmol/L (22-29) 06/16/24 21:56 Anion Gap 15.0 (5-19) 06/16/24 21:56 BUN 13 mg/dL (6-20) 06/16/24 21:56 Creatinine 0.6 mg/dL (0.7-1.2) L 06/16/24 21:56 GFR Calculation 156.1 mL/min (90-130) H 06/16/24 21:56 Glucose 107 mg/dL (65-115) 06/16/24 21:56 Calculated Osmolality 287 mOsm/kg (285-295) 06/16/24 21:56 Calcium 9.1 mg/dL (8.5-10.5) 06/16/24 21:56 Total Bilirubin 0.5 mg/dL (0.15-1.2) 06/16/24 21:56 AST 16 U/L (0-40) 06/16/24 21:56 ALT 26 U/L (0-41) 06/16/24 21:56 Alkaline Phosphatase 27 U/L (40-130) L 06/16/24 21:56 Total Protein 7.2 g/dL (6.6-8.7) 06/16/24 21:56 Albumin 4.4 g/dL (3.5-5.2) 06/16/24 21:56 Globulin 2.8 g/dL (1.3-4.6) 06/16/24 21:56 TSH 2.57 uIU/mL (0.27-4.20) 06/16/24 21:56 Urine Color Yellow (Yellow) 06/16/24 21:38 Urine Appearance Clear (CLEAR) 06/16/24 21:38 Urine pH 7.5 (5-7) 06/16/24 21:38 Ur Specific [place] 1.016 (1.005-1.030) 06/16/24 21:38 Urine Protein Negative (Negative) 06/16/24 21:38 Urine Glucose (UA) Negative (Normal) 06/16/24 21:38 Urine Ketones Negative (Negative) 06/16/24 21:38 Urine Blood Negative (Negative) 06/16/24 21:38 Urine Nitrate Negative (Negative) 02/23/25 21:38 Urine Bilirubin Negative (Negative) 06/16/24 21:38 Urine Urobilinogen 1.0 mg/dL (Negative) 06/16/24 21:38 Ur Leukocyte Esterase Negative (Negative) 06/16/24 21:38 Amorphous Sediment Not Reportable 06/16/24 21:38 Salicylates < 0.3 mg/dL (3-10) L 06/16/24 21:56 Urine Opiates Screen Negative ng/mL (Negative) 06/16/24 21:38 Acetaminophen < 5.0 ug/mL (10-30) L 06/16/24 21:56 Ur Barbiturates Screen Negative ng/mL (Negative) 06/16/24 21:38 Ur Phencyclidine Scrn Negative ng/mL (Negative) 06/16/24 21:38 Ur Amphetamines Screen Negative ng/mL (Negative) 06/16/24 21:38 U Benzodiazepines Scrn Negative ng/mL (Negative) 06/16/24 21:38 Urine Cocaine Screen Negative ng/mL (Negative) 06/16/24 21:38 U Marijuana (THC) Screen Positive ng/mL (Negative) H 06/16/24 21:38 Ethyl Alcohol < 10 mg/dL (0-10) 06/16/24 21:56 Influenza A (PCR) Negative (Negative) 06/16/24 22:20 Influenza Type B (PCR) Negative (Negative) 06/16/24 22:20 RSV (PCR) Negative (Negative) 06/16/24 22:20 SARS-CoV-2 (PCR) Negative (Negative) 06/16/24 22:20 No radiology studies performed this visit Discharge Plan Discharge Patient Disposition: Xfer Psychiatric Hosp Clinical Impression: Schizoaffective disorder, depressive type, Suicidal ideation Condition: Stable Referrals: Sp Flowers MD [Primary Care Provider] - Print Language: Thai Coding Level of Care Code ED Grizzly Worker for Keny Ying
[2024-06-16 23:00] LABS: Influenza A NEGATIVE (Negative); Influenza B NEGATIVE (Negative); Respiratory Syncytial Virus Ce NEGATIVE (Negative); SARS-CoV-2 PCR NEGATIVE (Negative)
--- NOTE | 2024-06-17 02:09 | PC.NURSE ---
Spoke with Nilda at [facility], pt has been accepted for admission, Nilda RN will call with bed assignment. Nilda also requesting report be called in the morning so that each day shift nurse is on same page.
[2024-06-17 08:00] VITALS: BP 104/67; PULSE 87; RESP 19; O2SAT 97
== END 2024-06-17 12:00 ==
PROVIDERS: Emergency Provider Emergency Medicine; PCP Family Medicine
DX: F25.1 Schizoaffective disorder, depressive type (principal); R45.851 Suicidal ideations; Z11.52 Encounter for screening for COVID-19; Z87.891 Personal history of nicotine dependence
CPT/HCPCS: 36415; 80053; 80306; 80307; 81003; 84443; 85025; 87637; 99285

== ENCOUNTER 2024-09-27 00:17 | Inpatient (IN) | payer OTHER, MEDICAID, SELFPAY ==
[2023-11-22 08:34] VITALS: BP 139/96; BMI 34.1
[2024-09-27 00:31] VITALS: BP 149/95; PULSE 106; RESP 18; TEMP 36.6; O2SAT 97
--- NOTE | 2024-09-27 00:35 | ECG_ITS ---
[facility] Test Date: 2024-09-27 Pat Name: Real Black Department: Room: Gender: Male Epic Director: : 1990 Requested By: Princess Hernandez Order Number: [id number] Omero MD: TRAM NEWBY Measurements Intervals [place] Rate: 85 P: 49 NV: 171 QRS: 68 QRSD: 88 T: 45 QT: 356 QTc: 425 Interpretive Statements SINUS RHYTHM MINIMAL VOLTAGE CRITERIA FOR LVH, CONSIDER NORMAL VARIANT [MEETS CRITERIA IN ONE OF: R(aVL), S(V1), R(V5), R(V5/V6)+S(V1)] Compared to ECG 03/05/2024 22:52:26 Early repolarization no longer present Electronically Signed On 09-28-2024 23:46:55 CDT by TRAM NEWBY [email or web address]
--- NOTE | 2024-09-27 00:51 | ED.C_ITS ---
HPI - Psych 2 General: Chief Complaint: Psychiatric Symptoms Stated Complaint: SI Time Seen by Provider: 09/27/24 00:36 History of Present Illness: 34-year-old man with a history of schizo affective disorder and depression with hallucinations who presents the emergency room with depression, suicidal thoughts and hallucinations. He says he does not have a specific plan at this time. He says life is just too much right now. Related Data Home Medications ?Medication ?Instructions ?Recorded ?Confirmed acetaminophen 500 mg tablet 1,000 mg PO Q6H PRN Pain 0 08/03/20 09/05/24 (Tylenol Extra Strength) metoprolol succinate 25 mg 25 mg PO DAILY 12/15/20 tablet,extended release 24 hr omeprazole 20 mg capsule,delayed 20 mg PO DAILY@16 11/1209/05/24 release levothyroxine 100 mcg tablet 100 mcg PO DAILY 11/17/22 09/05/24 (Levoxyl) lisinopril 10 mg tablet 10 mg PO DAILY 11/17/2208/22 Previous Rx's ?Medication ?Instructions ?Recorded aripiprazole 400 mg intramuscular 400 mg IM Q28D #1 ea 07/25/24 suspension,extended release (Abilify Maintena) divalproex 500 mg tablet,extended 1,000 mg (2 x 500 mg ) PO BEDTIME 07/25/24 release 24 hr #60 tabs escitalopram oxalate 20 mg tablet 20 mg PO DAILY 30 da ys #30 tabs 07/25/24 hydroxyzine pamoate 25 mg capsule 25 mg PO BID Anxiety #60 caps 07/25/24 paliperidone 1.5 mg See Rx Instructions PO DAILY 07/25/24 tablet,extended release 24 hr psychosis/hallucinations #30 tabs trazodone 50 mg tablet 50 mg PO BEDTIME PRN Sleep # 30 tabs 07/25/24 Allergies Allergy/AdvReac Type Severity Reaction Status Date / Time chlorpromazine Allergy Severe ALGY-Anaphy Verified 09/27/24 00:33 laxis haloperidol (From Haldol) Allergy Severe ALGY-Swell Verified 09/27/24 00:33 Lip/Tongue/Throat lurasidone (From Latuda) Allergy Severe ALGY-Swell Verified 09/27/24 00:33 Lip/Tongue/Throat olanzapine (From Zyprexa) Allergy Severe ALGY-Swell Verified 09/27/24 00:33 Lip/Tongue/Throat Review of Systems 2 Narrative: Constitutional symptoms: Negative except as documented in HPI. Skin symptoms: Negative except as documented in HPI. Eye symptoms: Negative except as documented in HPI. ENMT symptoms: Negative except as documented in HPI. Respiratory symptoms: Negative except as documented in HPI. Cardiovascular symptoms: Negative except as documented in HPI. Gastrointestinal symptoms: Negative except as documented in HPI. Genitourinary symptoms: Negative except as documented in HPI. Musculoskeletal symptoms: Negative except as documented in HPI. Neurologic symptoms: Negative except as documented in HPI. Psychiatric symptoms: Negative except as documented in HPI. Endocrine symptoms: Negative except as documented in HPI. PFSH ED 2 PFSH: Medical History Cannabis dependence Psychiatric care Schizoaffective disorder, depressive type Depressive disorder Hallucination Family History Other Diabetes Hypertension Schizoaffective disorder, depressive type Social History Smoking and tobacco/nicotine status: former use of tobacco/nicotine Quit status (tobacco/nicotine): has quit using Year quit tobacco: 150 days? Second hand smoke exposure: Yes Alcohol intake: never Substance/Drug Use: never Adopted: No Caregiver/support person: Yes (sets up his medication) Lives independently[facility] Household members: other Details: Multiple other residents at the facility. Housing: Assisted Living Facility Marital status: Single Number of children: 0 Number of grandchildren: 0 Highest education level completed: High School Graduate service: No Current occupational status: disabled Current occupational exposures/hazards: No Pets and animals: Yes Pets & animals: cat(s) Leisure activites: exercise, music, games and other Leisure activities details: watch TV Sexually active: Yes How many partners: 1 Are you practicing safe sex: No Do you think of yourself as: Straight/Heterosexual Current gender identity: Male Paola/Roman Catholic: Religious Special paola needs: No Agree to transfusion: Yes Physical Exam 2 Narrative: EXAM NARRATIVE: General: Alert. no acute distress Skin: Warm, dry Head: Normocephalic, atraumatic. Neck: Supple, trachea midline. Eye: Extraocular movements are intact. Ears, nose, mouth and throat: Oral mucosa moist. Cardiovascular: Regular rate and rhythm, Normal peripheral perfusion. Respiratory: Lungs are clear to auscultation, respirations are non-labored, breath sounds are equal, Symmetrical chest wall expansion. Gastrointestinal: Soft, Nontender, Non distended Musculoskeletal: Normal ROM, no deformity. Neurological: Alert and oriented. No focal neurological deficit observed. Psychiatric: Cooperative, depressed, expresses suicidal ideation. Course 2 Vital Signs: Vital signs: Vital Signs Temperature 97.8 F 09/27/24 00:31 Pulse Rate 106 H 09/27/24 00:31 Respiratory Rate 18 09/27/24 00:31 Blood Pressure 149/95 09/27/24 00:31 Pulse Oximetry 97 09/27/24 00:31 Oxygen Delivery Me thod Room Air 09/27/24 00:31 MDM - Psych Medical Decision Making Differential diagnosis: Patient with reported depression and suicidal ideation. concerns for infection, alcohol intoxication, cardiac issues or other medical problems prior to psychiatric admission. Workup: labwork, ekg ordered to evaluate the pathologies and to clear the patient medically prior to psychiatric admission EKG: Time 1:01 AM. Rate 85 normal sinus rhythm, No ST-T changes, no ectopy, normal HI & QRS intervals, This was reviewed and interpreted by myself the ER physician at 1:05 AM Lab Review: Laboratory results were reviewed and interpreted by myself the emergency room physician. - Medically cleared. - EKG shows no ischemic changes. - Blood alcohol level is positive for marijuana, -Tylenol and salicylate levels are negative. - Drug screen is negative - No signs of infection, urinalysis clear and white count is not elevated - No anemia. - BUN and creatinine are within normal limits. Assessment and plan: Suicidal ideation Depression -Transfer to neuropsychiatric unit for continued evaluation and treatment. - All lab work was reviewed and interpreted personally by myself, the ER physician - Evaluation and treatment of this problem were appropriate in the emergency setting Lab Data 09/27/24 01:09 09/27/24 01:09 Laboratory Results WBC 8.76 10^3/uL (3.29-11.43) 09/27/24 01:09 RBC 4.89 10^6/uL (3.85-5.65) 09/27/24 01:09 Hgb 15.50 g/dL (11.27-16.99) 09/27/24 01:09 Hct 44.9 % (37-53) 09/27/24 01:09 MCV 91.8 fl (82-101) 09/27/24 01:09 MCH 31.7 pg (27-33) 09/27/24 01:09 MCHC 34.5 g/dL (30-55) 09/27/24 01:09 RDW 12.6 % (12.1-15.1) 09/27/24 01:09 Plt Count 219 10^3/cmm (157-399) 09/27/24 01:09 MPV 9.9 fL (7.4-10.4) 09/27/24 01:09 Neut % (Auto) 56.2 % 09/27/24 01:09 Lymph % (Auto) 36.1 % 09/27/24 01:09 [place] % (Auto) 5.5 % 09/27/24 01:09 Eos % (Auto) 1.6 % 09/27/24 01:09 Baso % (Auto) 0.3 % 09/27/24 01:09 Neut # (Auto) 4.92 10^3/uL (1.8-7.7) 09/27/24 01:09 Lymph # (Auto) 3.2 10^3/uL (0.8-4.8) 09/27/24 01:09 [place] # (Auto) 0.5 10^3/uL (0.2-0.9) 09/27/24 01:09 Eos # (Auto) 0.1 10^3/uL (0.0-0.8) 09/27/24 01:09 Baso # (Auto) 0.0 10^3/uL (0.0-0.1) 09/27/24 01:09 Nucleated RBC % (auto) 0 % 09/27/24 01:09 Nucleated RBCs # 0.0 /100WBC 09/27/24 01:09 Sodium 136 mmol/L (136-145) 09/27/24 01:09 Potassium 3.8 mmol/L (3.5-5.1) 09/27/24 01:09 Chloride 101 mmol/L (98-107) 09/27/24 01:09 Carbon Dioxide 20 mmol/L (22-29) L 09/27/24 01:09 Anion Gap 18.8 (5-19) 09/27/24 01:09 BUN 18 mg/dL (6-20) 09/27/24 01:09 Creatinine 0.7 mg/dL (0.7-1.2) 09/27/24 01:09 GFR Calculation 129.9 mL/min (90-130) 09/27/24 01:09 Glucose 92 mg/dL (65-115) 09/27/24 01:09 Calculated Osmolality 284 mOsm/kg (285-295) L 09/27/24 01:09 Calcium 9.4 mg/dL (8.5-10.5) 09/27/24 01:09 Total Bilirubin 0.2 mg/dL (0.15-1.2) 09/27/24 01:09 AST 5 U/L (0-40) 09/27/24 01:09 ALT < 5 U/L (0-41) 09/27/24 01:09 Alkaline Phosphatase 36 U/L (40-130) L 09/27/24 01:09 Total Protein 7.2 g/dL (6.6-8.7) 09/27/24 01:09 Albumin 4.2 g/dL (3.5-5.2) 09/27/24 01:09 Globulin 3.0 g/dL (1.3-4.6) 09/27/24 01:09 TSH 7.77 uIU/mL (0.27-4.20) H 09/27/24 01:09 Urine Color Yellow (Yellow) 09/27/24 01:09 Urine Appearance Clear (CLEAR) 09/27/24 01:09 Urine pH 5.5 (5-7) 09/27/24 01:09 Ur Specific [place] 1.022 (1.005-1.030) 09/27/24 01:09 Urine Protein Trace (Negative) A 09/27/24 01:09 Urine Glucose (UA) Negative (Normal) 09/27/24 01:09 Urine Ketones Trace (Negative) 09/27/24 01:09 Urine Blood Negative (Negative) 09/27/24 01:09 Urine Nitrate Negative (Negative) 09/27/24 01:09 Urine Bilirubin Negative (Negative) 09/27/24 01:09 Urine Urobilinogen 1.0 mg/dL (Negative) 09/27/24 01:09 Ur Leukocyte Esterase Negative (Negative) 09/27/24 01:09 Urine RBC 0-2 /hpf (0-2) 09/27/24 01:09 Urine WBC 0-5 /hpf (0-5) 09/27/24 01:09 Ur Squamous Epith Cells 0-5 /hpf (0-5) 09/27/24 01:09 Amorphous Sediment Not Reportable 09/27/24 01:09 Urine Bacteria None seen /hpf (NONE) 09/27/24 01:09 Hyaline Casts 0-4 /lpf H 09/27/24 01:09 Salicylates < 0.3 mg/dL (3-10) L 09/27/24 01:09 Urine Opiates Screen Negative ng/mL (Negative) 09/27/24 01:09 Acetaminophen < 5.0 ug/mL (10-30) L 09/27/24 01:09 Ur Barbiturates Screen Negative ng/mL (Negative) 09/27/24 01:09 Ur Phencyclidine Scrn Negative ng/mL (Negative) 09/27/24 01:09 Ur Amphetamines Screen Negative ng/mL (Negative) 09/27/24 01:09 U Benzodiazepines Scrn Negative ng/mL (Negative) 09/27/24 01:09 Urine Cocaine Screen Negative ng/mL (Negative) 09/27/24 01:09 U Marijuana (THC) Screen Positive ng/mL (Negative) H 09/27/24 01:09 Ethyl Alcohol < 10 mg/dL (0-10) 09/27/24 01:09 No radiology studies performed this visit Discharge Plan Discharge Patient Disposition: Admitted As Inpatient Clinical Impression: Suicidal ideation, Depression Condition: Stable Coding Level of Care Code ED [employer] General Manager for Keny Ying
[2024-09-27 01:22] LABS: Basophils % 0.3 %; Eosinophils # 0.1 10^3/uL (0.0-0.8); Eosinophils % 1.6 %; Hematocrit 44.9 % (37-53); Lymphocytes # 3.2 10^3/uL (0.8-4.8); Lymphocytes % 36.1 %; Mean Corpuscular HGB Conc 34.5 g/dL (30-55); Mean Corpuscular Hemoglobin 31.7 pg (27-33); Mean Corpuscular Volume 91.8 fl (82-101); Mean Platelet Volume 9.9 fL (7.4-10.4); Monocytes # 0.5 10^3/uL (0.2-0.9); Monocytes % 5.5 %; Neutrophils # 4.92 10^3/uL (1.8-7.7); Neutrophils % 56.2 %; Nucleated Red Blood Cells % 0 %; Platelet Count 219 10^3/cmm (157-399); Red Blood Count 4.89 10^6/uL (3.85-5.65); Red Cell Distribution Width 12.6 % (12.1-15.1); White Blood Count 8.76 10^3/uL (3.29-11.43)
[2024-09-27 01:24] LABS: Bilirubin Urine Negative (Negative); Blood Urine Negative (Negative); Glucose Urine UA Negative (Normal); Ketones Urine Trace (Negative); Leukocyte Esterase Urine Negative (Negative); Nitrate Urine Negative (Negative); Protein Urine Trace (Negative); Specific Gravity, Urine 1.022 (1.005-1.030); Urine Appearance Clear (CLEAR); Urine Color Yellow (Yellow); pH Urine 5.5 (5-7)
[2024-09-27 01:27] LABS: Add Urine Microscopic? YES; Bacteria Urine None Seen /hpf; Hyaline Casts Urine 0-4 /lpf; RBC Urine 0-2 /hpf (0-2); Squamous Epithelial Cell Urine 0-5 /hpf (0-5); WBC Urine 0-5 /hpf (0-5)
[2024-09-27 01:31] LABS: Amphetamines Screen Urine Negative (Negative); Barbiturates Screen Urine Negative (Negative); Benzodiazepines Screen Urine Negative (Negative); Cocaine Screen Urine Negative (Negative); Opiate Screen Urine Negative (Negative); PCP Screen Urine Negative (Negative); THC Screen Urine Positive (Negative)
[2024-09-27 01:50] LABS: Albumin Level 4.2 g/dL (3.5-5.2); Alkaline Phosphatase 36 U/L (40-130); Blood Urea Nitrogen 18 mg/dL (6-20); Calcium 9.4 mg/dL (8.5-10.5); Carbon Dioxide 20 mmol/L (22-29); Chloride 101 mmol/L (98-107); Creatinine Clr Calc Pharmacy 170.5639; Glomerular Filtration Rate 129.9 mL/min (90-130); Glucose 92 mg/dL (65-115); Osmolality Calculated 284 mOsm/kg (285-295); Sodium 136 mmol/L (136-145); Thyroid Stimulating Hormone 7.77 uIU/mL (0.27-4.20); Total Bilirubin 0.2 mg/dL (0.15-1.2); Total Protein 7.2 g/dL (6.6-8.7)
[2024-09-27 01:53] LABS: Acetaminophen < 5.0 ug/mL (10-30); Alcohol Level < 10 mg/dL (0-10); Anion Gap 18.8 (5-19); Potassium 3.8 mmol/L (3.5-5.1); Salicylate < 0.3 mg/dL (3-10)
[2024-09-27 02:02] LABS: Alanine Aminotransferase < 5 U/L (0-41); Aspartate Amino Transferase 5 U/L (0-40)
--- NOTE | 2024-09-27 03:03 | PC.NURSE ---
Pt was read his 96 hour hold rights at this time with security at bedside. pt has no needs at this time
[2024-09-27 05:52] VITALS: BP 148/77; PULSE 99; O2SAT 98
--- NOTE | 2024-09-27 10:40 | PC.NURSE ---
pt offered breakfast tray @[id number]
--- NOTE | 2024-09-27 14:20 | PC.NURSE ---
rounded on pt approx 30 min ago, unk exact time. pt resting in bed comfortably, had lunch tray at bedside. pt respirations even and unlabored. PSA at bedside, denies pt verbalizing any needs
[2024-09-27 15:02] VITALS: BP 149/94; PULSE 98; RESP 18; TEMP 37.2; O2SAT 99
[2024-09-27 15:34] VITALS: BP 136/89; PULSE 97; RESP 18; TEMP 37.1; O2SAT 98
[2024-09-27] MEDS: nicotine 2 mg Gum BUCCAL (16:25)
--- NOTE | 2024-09-27 16:25 | PC.ADMIT ---
[facility] Admission Note:Pt states that he came in for SI without a plan. States that 3 months ago he left [place] and went to live with a friend for 2.5 months. It wasn't a good situation so he left and went to stay at [facility] for about 2 weeks. He began to have increased auditory hallucinations and was SI so he came to the ER. He is hopeful to get back into the ER. The patient,Real Black,34 y/o, was given written information regarding hospital policies, unit procedures and contact persons. Patient's smoking status: former smoker. Vital Signs - 8 hr 09/27/24 15:02 09/27/24 15:34 09/27/24 15:40 Temperature 98.9 F 98.8 F Pulse Rate 98 97 Respiratory Rate 18 18 Blood Pressure 149/94 136/89 Pulse Oximetry 99 98 Oxygen Delivery Method Room Air
[2024-09-27 20:44] VITALS: BP 141/86; PULSE 92; RESP 19; TEMP 37.1; O2SAT 98
[2024-09-27] MEDS: divalproex ER 500 mg Tablet (24H) 1000 MG PO (20:52)
[2024-09-27] MEDS: trazodone 50 mg Tablet PO (21:26)
[2024-09-27] MEDS: ARIPiprazole 10 mg Tablet PO (21:26)
[2024-09-27] MEDS: hyDROXYzine 25 mg Capsule 50 MG PO (21:26)
[2024-09-28] MEDS: nicotine 4 mg lozenge MUCOUS MEM (03:43)
[2024-09-28] MEDS: nicotine 2 mg Gum BUCCAL ×4 (03:46→19:05)
[2024-09-28 06:00] VITALS: BP 118/80; PULSE 97; RESP 18; TEMP 36.2; O2SAT 93
[2024-09-28] MEDS: levothyroxine 100 mcg Tablet PO (06:22)
[2024-09-28] MEDS: acetaminophen 325 mg Tablet 650 MG PO (06:29)
--- NOTE | 2024-09-28 07:30 | P.NPUHP_ITS ---
Providers/Chief Complaint 2 Admitting Physician: Troy Stevens MD Primary Care Provider: Malgorzata Santa DO Chief Complaint: SI HPI NPU History of Present Illness Real Black is a 34 year old male with a history of schizoaffective disorder who presented to the emergency department with complaints of command auditory hallucinations stating to kill himself. He had reported that he had been overwhelmed by depression. He reports that the auditory hallucinations have been more prominent since he had discontinued his oral Invega 1.5 mg daily. The patient reports that he was last hospitalized in the psychiatric facility in February 2024. He reports that he has had increased problems with sleeping excessively. He reports difficulties with low energy and low motivation. He states that 2 months ago he had left [facility] and states that he feels that it is a big mistake. He reports that he struggles with managing his own care. He reports that he is often forgetful and unable to take his medications routinely. He reports having problems with concentration. He reports that he continues to use marijuana routinely but denies any illicit drug use or alcohol. The patient reports that he had been compliant with his monthly Abilify shots. He had reported that he continues to struggle with paranoia. He reports having increased problems with memory. Inpatient psychiatric history: He has a history of multiple inpatient psychiatric hospitalizations with a previous diagnosis of schizoaffective disorder, methamphetamine use disorder and anxiety. He reports his most recent hospitalization was at [facility] in [facility]. Outpatient psychiatric history: Patient has been receiving services through the [facility] since 2015. He does have a history of attempting to hang himself in 2012. Previous records indicate a history of schizophrenia. He is currently followed at [facility] with [facility] services. He has a history of multiple medication trials with a history of multiple suicide attempts. He had previously been treated for ADHD as a child. Substance abuse history: He had previously used alcohol beginning at the age of 13. He continues to use cannabis. He had also reported history of methamphetamine use in the past along with nicotine use. He is currently not in any kind of substance abuse treatment other than [facility] services. Medical history: History of tonsillectomy and history of foot fracture. He has a history of hypothyroidism, hypertension and GERD. Medications: metoprolol, omeprazole, paliperidone, abilify maintena IM 400mg (last 09/05/24), depakote er 1000mg daily, lexapro 20mg daily, hydroxyzine 25mg bid, trazodone 50mg daily. Allergies: Haldol, Zyprexa, Latuda, chlorpromazine Family history: History of anxiety and depression, history of alcoholism Legal history: None reported Social history: He was born in [place] his parents moved to [place] when he was in the fifth grade. He had graduated high school. He had reported no history of sexual physical or emotional abuse. He had no history of service. He had reported that he had been treated for ADHD when he was a child but had no clear history of learning support although previous records indicate he had been in special education classes. He is currently not and is living with a friend in [facility]. Excerpt from NPU Discharge summary from 08/08/23 Discharge Diagnosis (1) Schizoaffective disorder, depressive type: Status: Chronic (2) Suicidal ideation: Status: Resolved (3) Auditory hallucinations: Status: Resolved Reason for Visit SI Brief History: History of Present Illness Real Black is a 33 year old male who presented to the emergency department with complaints of hearing voices telling him to harm himself. The patient had reported that he had had a visit with his therapist on the day of admission and after the visit he had felt more anxious and this led to the presence of voices which cascaded into the emergence of suicidal thoughts. Patient was admitted to the neuropsychiatric unit for further evaluation and treatment. He reports that he has been less preoccupied by hallucinations since the change from his last admission in April 2023. He continues to report having occasional panic attacks lasting about 10 minutes with shortness of breath and chest pain that appear to be untriggered. Patient had continued to report that he had been smoking weed on a daily basis. He had denied any worsening depression. He did not complain of problems with regarding his energy. He had reported compliance with his current medication regimen. Patient continues to report having problems managing chronic worry. He reports that he frequently feels that the worry is out of control. He had reported that he had recently revealed in therapy about having some particular sexual fetish and reviewing that information at his therapy appointment seem to cause greater anxiety when he returned home. He reports no other substantial changes since his last admission in April 2023. He reports that he continues to receive case management services and [facility] services. Current medications: Abilify 400 mg intramuscularly every 28 days, Wellbutrin XL 300 mg daily, Depakote 1000 mg at night, hydroxyzine 25 mg twice a day, Synthroid 100 mcg daily, lisinopril 10 mg daily, metoprolol 25 mg daily, omeprazole 20 mg daily, Invega 6 mg at night, trazodone 50 mg at night NPU D/C Summary from 05/16/23 Diagnoses at Discharge Discharge Diagnosis (1) Schizoaffective disorder, depressive type: Status: Chronic (2) Suicidal ideation: Status: Resolved (3) Auditory hallucinations: Status: Resolved Reason for Visit I Brief History: History of Present Illness Real Black is a 32 year old male currently residing at the [facility] who presented to the emergency department with complaints of command auditory hallucinations telling him to kill himself. He had reported that he had been compliant with his Abilify monthly injection but states that over the past 3 to 4 days he has been having more auditory hallucinations telling him to harm himself. He states that the voices are chronically present but states that they had been more manageable but approximately 1 week till his next injection of Abilify he has been having an emerging problem of increased prevalence of the hallucinations. Patient denied any homicidal ideation and reports that he is often overwhelmed. He states that a recent stressor for him had been that he had been worried about going on vacation to [place] with his family members and stated that he was under a great deal of stress. Patient was admitted to the neuropsychiatric unit for further evaluation and treatment. He reports no substantial changes since his last hospitalization and discharged from the neuropsychiatric unit on 03/23/2023. Excerpt from NPU DISCHARGE 03/23/23 Discharge Diagnosis (1) Schizoaffective disorder, depressive type: Status: Chronic(2) Suicidal ideation: Status: Resolved(3) Auditory hallucinations: Status: R esolved Reason for Visit SI Brief History: History of Present Illness Real Black is a 32 year old male most recently hospitalized in November 2022 with a history of schizoaffective disorder who presented to the emergency department with complaints of auditory hallucinations telling him to harm himself. Patient was admitted to the neuropsychiatric unit for further diagnosis and treatment. Patient reported that he has been compliant with his medications and reports that he has recently received his monthly injection of Abilify approximately 3 days ago and states that usually his mood and his voices become quieter but reports that at this time it is not been the case. He reports that he has been hearing voices telling him to harm himself. He does endorse some depressed mood. He reports some difficulties with concentration. He had stated that he is concerned that if his medications are not adjusted that he may do something to hurt himself. Inpatient psychiatric history: Multiple inpatient hospitalizations Outpatient psychiatric history: He reports receiving [facility] services at [facility] on an outpatient basis with weekly visits Current medications: Abilify Maintena 400 mg IM every 28 days, Wellbutrin SR 200 mg daily, Depakote 1000 mg at night, hydroxyzine 25 twice a day as needed, levothyroxine 100 mcg daily, lisinopril 10 mg daily, metoprolol 25 mg daily, omeprazole 25 mg daily, Seroquel 100 mg as needed at night Allergies: Latuda, olanzapine, Haldol, Chlorpromazine, Social History: He currently lives in a ch[facility] in [facility]. See previous social history below. He reports is unchanged from most recent hospitalization. NPU Discharge Summary 11/23/22 Discharge Diagnosis (1) Schizoaffective disorder, depressive type:?Status:?Chronic(2) Suicidal ideation:?Status:?Resolved(3) Auditory hallucinations:?Status:?C hronicSI? Brief History: HPI NPU History of Present Illness Real Black is a 32 year old male who presented to the ED with the following report: Chief Complaint: Psychiatric Symptoms Stated Complaint: SI Time Seen by Provider: 11/17/22 07:11 Source: patient Mode of arrival: ambulatory Limitations: no limitations History of Present Illness:?? Patient is a 32-year-old male with a history of schizoaffective disorder here for complaints of auditory hallucinations stating that the voices are telling him to harm himself.? He states they are not telling him any specific ways to harm himself. He does state he feels like he might act on the voices.? He reports a previous suicide attempt years ago.? He states he does have a psychiatrist at [facility].? Patient is requesting hospitalization.? He denies homicidal ideations.? No visual hallucinations.? Denies drug or alcohol use.? Patient is a resident at [facility]. ? MD complaint: suicidal ideation and other (auditory hallucinations) Onset (ago): day(s) Duration: constant History of same: Yes Relieving factors: none Exacerbating factors: none Associated psychiatric symptoms: depression, suicidal ideation and auditory hallucinations Associated symptoms: Reports auditory hallucinations, depression and suicidal ideation; Deny visual hallucinations or homicidal ideation Treatments prior to arrival: none If self harm: admits thoughts of self harm He was admitted to the neuropsychiatric unit for definitive treatment of those issues.? He presents today reporting he has been doing well in general in the past 13 months with only intermittent AH occasionally with good medication adherence overall. He reports that he had been doing well until about 3 weeks ago when for some reason he cannot explain he began being more drawn to playing his video games at night and staying up.? As he was having 3 and 4-day stretches where he was having little to no sleep his hallucinations returned and they started getting worse eventually leading to him having command auditory hallucinations to harm himself but not specifically to kill himself per se.? He reports that as a got out of control he knew he needed to come in and may be get his sleep back under control and consider changes in his medication.? We discussed the risks, benefits and alternatives of him starting Abilify as we had attempted this in the past and he understood and agreed to proceed as is documented in this note.? This is in part due to the fact that increases in his Geodon have proved challenging such that he has been somewhat stuck at this 40 mg p.o. twice daily dosing.? Also he had been on several medications back then and polypharmacy was a concern but he has been able to decrease some of those medications.? We reviewed his records and identified his 10/03/2022 outpatient evaluation from [facility] as being a comprehensive exploration of his history and excerpt is included below. Per his 10/03/2022 [facility] inpatient psychiatric discharge summary: Discharge Diagnosis (1) Suicidal ideation:? ? ? Status: Acute(2) Auditory hallucinations:? ? ? Status: Acute(3) Schizoaffective disorder, depressive type:? ? ? Status: ChronicReason for Visit Reason for Visit:??SI? Brief History: Real Black is a 31 year old male admitted to the neuropsychiatry unit for the following report. Mr. Black is a 31-year-old male with history of schizoaffective disorder presenting to the emergency department due to suicidal ideation and hallucinations.? He reports history of similar however had been doing well.? Symptoms started yesterday morning without known specific provoking factor.? He reports compliance with medication regimen and denies other associated significant changes in related depressive symptoms.? Intensity of hallucinations have been worsening.? They tell him to hurt himself.? He has had increased thoughts of hurting himself because of these voices.? Otherwise denies medical complaints.? No other specific changes in health, exacerbating, or alleviating factors identified. He was admitted to the neuropsychiatry unit for definitive treatment of these issues.? He is well known to this unit with multiple admissions.? The last admission was in June and at that time we changed him from Geodon to Invega and increased his Wellbutrin to 300 mg daily.? He feels like those changes have been working well.? He denies anything that could precipitate a worsening of his auditory hallucinations.? He says he occasionally has flareups of his hallucinations but this is much worse than normal.? He has been generally doing well since he left the hospital in June.? He reported to his therapist and psychiatric nurse practitioner that he had been doing well in recent appointments.? He denies any drug use.? He denies any stress at [facility] where he lives.? He denies any family stress.? He says that he has been compliant with medications.? His mood has been fairly good.? He requested that his Invega be increased.? I agreed to do that for a couple of days and then reevaluate. Hospital Course He slowly acclimated to the individual, group and milieu therapies provided.? He was continued on his medications except for Invega was gradually increased to 9 mg in the morning and 6 mg at bedtime.? He had urinary incontinence on 6 mg twice a day and Cogentin was added.? He had a similar problem with Geodon.? We talked about trying a different antipsychotic but he felt that Invega was good for him and wanted to try that with the Cogentin and increase the dose.? He tolerated these doses and showed steady improvement during his stay. ? He was able to contract for safety outside hospital prior to discharge.? During the hospitalization, patient had routine laboratory studies which were within normal limits except for few outliers.? Additionally there was a general medical evaluation which was also within normal limits and revealed no new acute processes. Discharge Summary: At the time of discharge, lethality was denied and psychosis was resolving.? Mood and anxiety were well managed.? Patient endorsed a plan to follow-up with the aftercare recommendations of the treatment team.? Patient was evaluated and deemed to be absent credible lethality, and had achieved the maximum benefit from an inpatient hospitalization, so was discharged. Per his 07/07/2020 [facility] outpatient psychiatric evaluation: [facility] History and Physical Time In: 13:56 Time Out: 14:57 Chief Complaint: here for therapy and medications History of Present Illness: Information retrieved and edited from [facility] Comp. Clinical Assessment completed on: 05/26/20: anxiety and nervousness, wants therapy and medication management; moved here from [place]. Currently living at [facility], since 04/29/20. Before this arrangement, he was in [place],? living at an early childhood assistant living facility. He has moved several times back and forth from [place] to [place]. He is hoping his father will retire and his parents will move to [place]; they have a farm in [place]. Real had services with [facility] in 2015. Says he was inpatient due to his voices getting bad and he was suicidal. He says his current diagnosis are bipolar and now he is diagnosed with schizoaffective disorder; he is currently on medications. He is not aware if anyone in his family has bipolar or schizophrenia. He has had suicidal thoughts, chronic in nature. He tried to end his life in 2012 by hanging, reports the rope broke; previously held scissors to his throat; a cousin called him and that is what stopped him from doing it. He lived at [facility](assisted living facility in [place]) for four years, then moved to his Mom's friend's home in [place], [place]. Says he was referred to [facility] by friends of the [place]. Reported symptoms difficulty concentrating, thoughts hard to dismiss, annoyed and irritable, nervous feeling, worries and fears. Reported symptoms difficulty concentrating, thoughts hard to dismiss, annoyed and irritable, nervous feeling, worries and fears.? Denied fatigue, pains, headache, or digestive problems. Current habits: Drinks 3 large glasses of tea per day; sometimes drinks 2 cups of coffee in the morning and 3 sodas during the day.? Currently reports he sleeps from about midnight or 1 AM up until about 8 or 9 AM; usually obtains about 5 to 6 hours of rest during that time.? He rarely takes a nap in the day.? Sometimes skips breakfast, and usually eats lunch or dinner.? He tries to walk 2 or 3 times per week (up to 1 and half to 2 miles at a time) for physical exercise. History Past Psychiatric History:? Information retrieved and edited from [facility] Comp. Clinical Assessment completed on: 05/26/20:? Real had services with [facility] in 2015; dx were: F25.1 Schizoaffective DO, Depressed Type; F15.20 Methamphetamine Use Disorder; he [facility]; refer to chart. Most recent inpatient hospitalization was from? 06/12/20 to 06/15/20;included suicidal ideation; depressive disorder; and schizoaffective disorder. Real says hospitalization was due to his voices getting bad and he felt suicidal.? History of chronic suicidal thoughts with a history of suicide gesture/attempt including: He tried to end his life in 2012 by hanging; the rope broke, he had scissors held to his throat; says a cousin called him and that is what stopped him from doing it. Real says every now and then his voices act up. He says he has one unrecognized male voice which tells him to do bad stuff to himself, but not to anyone else.? Usually has increased depression and anxiety in the afternoon, usually from 2 PM to 5 PM.? Reports he can a good day, and then out of the blue he doesn?t feel like doing anything; he feels worthless and down in the dumps for no reason; he says every now and then something may trigger it. He has anger problems and when he gets mad at himself, he has hurt himself in the past; hx of cutting; last time he cut himself was in 2018. He used a knife; was cutting his wrist, but hasn't cut deeply enough to be in the hospital. He expressed inability to concentrate, difficulty completing tasks, delayed responses during conversations.? Says he had ADHD as a child; reported that he attended special classes, and took Concerta, Ritalin, and Adderall.? Says the medication was beneficial at school, but usually wore off by the time he got home.? Says he is able to control ADHD symptoms as an adult. Family History: Information retrieved and edited from [facility] Comp. Clinical Assessment completed on: 05/26/20 Family Psychiatric History: Anxiety and Depression History of Suicide in the Family: No Family history of substance abuse: Alcohol (father) Past Medical History: Information retrieved and edited from [facility] Comp. Clinical Assessment completed on: 05/26/20 Primary Care Provider: Yes (Dr. Flowres); last physical exam: Within past year (05.07.20) Client's Medical History: No major medical illness Surgical Procedure: Tonsillectomy; history of foot fracture Substance Use History: Information retrieved and edited from [facility] Comp. Clinical Assessment completed on: 05/26/20 Client history of substance abuse: Alcohol (yes) Age of onset (years): 13 Pattern of use: denied current use and has not used in 3 years; Cannabis (yes) Age of onset (years): 19 Pattern of use: denied current use; has not used in 3 years ; Amphetamine (yes) Age of onset (years): 21 Pattern of use: (previous snorting and smoking it );denied current use; has not used in 3 years; Nicotine (yes) Age of onset (years): 19 Pattern of use: current use: 1 ppd Client?s drug and/or alcohol use in the last 30 days: No Social History: Information retrieved and edited from [facility] Comp. Clinical Assessment completed on: 05/26/20 Childhood history: Real was born in [place]; at age [age], his parents moved? near [place], [place]. When he was in 5th grade, he moved to [place]. He graduated high school, then moved to [place], [place]. He says he has a good childhood; his parents were in the home growing up and are still together. He is an only child. He is single; has no children. 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 History: Client denies service Abilities/Interests: tries to stay busy, likes to help others; he loves being outside; listens to music Legal Status/History: Current legal issues denied; denies previous arrests incarceration. Spiritual Pursuits: Other (he prays) Highest Education Level Reached: college (12th grade; reports he had ADHD in school and was on meds.) Academic Performance: Performance at grade level Hospital Course Hospital Course During the hospitalization, the patient had routine laboratory studies which were within normal limits. Additionally, there was a general medical evaluation which was also within normal limits and revealed no new acute processes.? Patient had complained of having increased anxiety and reported the presence of auditory hallucinations and depression. The patient was started on Lexapro and titrated up to a dose of 20 mg to target anxiety and depression with noted improvement. At the time of discharge, lethality was denied and psychosis was resolving.? Mood and anxiety were well managed.? The patient endorsed a plan to avoid all drugs of abuse and follow up with the aftercare recommendations of the treatment team.? The patient was evaluated and deemed to be absent credible lethality and had achieved the maximum benefit from an inpatient hospitalization, and so was discharged. The patient's Wellbutrin was not initiated and not recommended to continue upon discharge. It was also recommended the patient remain off of BuSpar as well has he appeared to be less anxious with the once a day Lexapro.? Meds NPU Home Medications ?Medication ?Instructions ?Recorded ?Confirmed ?Last Taken ?Type acetaminophen 500 mg tablet 1,000 mg PO Q6H PRN Pain 0 08/03/20 09/27/24 11/04/20 09:00 History (Tylenol Extra Strength) metoprolol succinate 25 mg 25 mg PO DAILY 12/15/2010/16 1 Day Ago History tablet,extended release 24 hr ~ 25 omeprazole 20 mg capsule,delayed 20 mg PO DAILY@16 11/1209/27/24 1 Day Ago History release ~08/03/23 20 levothyroxine 100 mcg tablet 100 mcg PO DAILY 11/17/22 09/27/24 1 Day Ago History (Levoxyl) ~08/03/23 100 lisinopril 10 mg tablet 10 mg PO DAILY 11/17/22 06/10/16 1 Day Ago History ~08/03/23 10 aripiprazole 400 mg intramuscular 400 mg IM Q28D #1 ea 07/25/24 09/27/24 Unknown Rx suspension,extended release (Abilify Maintena) divalproex 500 mg tablet,extended 1,000 mg (2 x 500 mg ) PO BEDTIME 07/25/24 09/27/24 Unknown Rx release 24 hr #60 tabs escitalopram oxalate 20 mg tablet 20 mg PO DAILY 30 da ys #30 tabs 07/25/24 09/27/24 Unknown Rx hydroxyzine pamoate 25 mg capsule 25 mg PO BID Anxiety #60 caps 07/25/24 09/27/24 Unknown Rx paliperidone 1.5 mg See Rx Instructions PO DAILY 07/25/24 09/27/24 Unknown Rx tablet,extended release 24 hr psychosis/hallucinations #30 tabs trazodone 50 mg tablet 50 mg PO BEDTIME PRN Sleep # 30 tabs 07/25/24 09/27/24 Unknown Rx meloxicam 7.5 mg tablet 7.5 mg PO DAILY 09/27/2410/16 Unknown History paliperidone 6 mg tablet,extended 6 mg PO DAILY 09/27/24 Unknown History release 24 hr paliperidone 6 mg tablet,extended mg PO 09/27/2409/27 Unknown History release 24 hr Allergies Allergy/AdvReac Type Severity Reaction Status Date / Time chlorpromazine Allergy Severe ALGY-Anaphy Verified 09/27/24 00:33 laxis haloperidol (From Haldol) Allergy Severe ALGY-Swell Verified 09/27/24 00:33 Lip/Tongue/Throat lurasidone (From Latuda) Allergy Severe ALGY-Swell Verified 09/27/24 00:33 Lip/Tongue/Throat olanzapine (From Zyprexa) Allergy Severe ALGY-Swell Verified 09/27/24 00:33 Lip/Tongue/Throat PFSH NPU 2 PFSH: Medical History Cannabis dependence Psychiatric care Schizoaffective disorder, depressive type Depressive disorder Hallucination Family History Other Diabetes Hypertension Schizoaffective disorder, depressive type Social History Smoking and tobacco/nicotine status: former use of tobacco/nicotine Quit status (tobacco/nicotine): has quit using Year quit tobacco: 150 days? Second hand smoke exposure: Yes Alcohol intake: never Substance/Drug Use: never Adopted: No Caregiver/support person: Yes (sets up his medication) Lives independently: No (Staying at [facility]) Household members: other Details: Multiple other residents at the facility. Housing: Assisted Living Facility Marital status: Single Number of children: 0 Number of grandchildren: 0 Highest education level completed: High School Graduate service: No Current occupational status: disabled Current occupational exposures/hazards: No Pets and animals: Yes Pets & animals: cat(s) Leisure activites: exercise, music, games and other Leisure activities details: watch TV Sexually active: Yes How many partners: 1 Are you practicing safe sex: No Do you think of yourself as: Straight/Heterosexual Current gender identity: Male Paola/Nondenominational: Taoist Special paola needs: No Agree to transfusion: Yes Mental Status Exam 2 MSE Comments: Patient had disheveled appearance long hair and appeared extremely sedated. He was a relatively poor historian. He appeared to recognize the copy writer of this note. There was no evidence of any abnormal involuntary motor movements, tics, or tremors appreciated. His gait was not tested. His hygiene was poor. His speech was slow and steady with decreased volume. His mood was described as depressed. His affect was restricted in range and mood congruent. His thought process was linear, logical, and goal-directed. His thought content revealed suicidal ideation with no homicidal ideation. He had endorsed auditory hallucinations and did at times appear to be responding to internal stimuli. There was no clear evidence of delusional thinking. His attention span was poor. His recent and remote memory were poor. His insight is limited. His judgment is poor. His impulse control appeared poor. Vitals/I&O/Wt Last Vital Signs Temp 98.8 F 09/27/24 15:34 Pulse 97 09/27/24 15:34 Resp 18 09/27/24 15:34 BP 136/89 09/27/24 15:34 Pulse Ox 98 09/27/24 15:34 O2 Del Method Room Air 09/27/24 15:40 Weight last 48 hrs Weight 94.801 kg Data NPU 09/27/24 01:09 09/27/24 01:09 A&P Assessment and plan (1) Schizoaffective disorder, depressive type: Plan 34-year-old male with a history of schizoaffective disorder depressed type presents with reemergence of command auditory hallucinations that have been more prominent since he discontinued his oral antipsychotic. He has been compliant with his monthly Abilify but it does not appear to be enough to help with managing his psychotic symptoms. #1.? Engage patient in individual milieu and group therapy. #2?? Recommend sober living treatment at the highest level of care to which the patient is willing to commit #3??? Restart Lexapro, depakote, synthroid, lisinopril as prescribed. Add Abilify 10mg daily to target psychosis. #4?? TO-15 minute checks? #5?? Will attempt to gather collateral information PDMP PDMP Reviewed: Not Reviewed Involuntary Hold Information 2 Hold Status: Legal Status: 96 Hour Hold Date/Time Hold Expires: 0 10/03/24@0227 96 Hour Hold: 96 Hour Involuntary Admission: No Attestations NPU 2 Medical Necessity Statement*: Inpatient hospitalization is medically necessary and deemed to be the clinically appropriate intervention at this time. Medications will be adjusted and initiated as indicated.? The patient will be hospitalized for at least 2 midnights.? The patient?s likely length of stay is 4-6 days. ? Coding Level of Care Code Acute Code for [facility] Fwd Diagnoses Schizoaffective disorder, depressive type F25.1
[2024-09-28] MEDS: metoprolol succinate ER (24 HR) 25 mg Tablet PO (09:13)
[2024-09-28] MEDS: ARIPiprazole 10 mg Tablet PO (09:13)
[2024-09-28] MEDS: lisinopril 10 mg Tablet PO (09:13)
[2024-09-28] MEDS: escitalopram 10 mg Tablet 20 MG PO (09:13)
[2024-09-28] MEDS: meloxicam 7.5 mg tablet PO (09:13)
[2024-09-28] MEDS: pantoprazole DR 40 mg Tablet PO (09:14)
--- NOTE | 2024-09-28 10:41 | PC.NURSE ---
Dr. Figueroa d/c the Depakote 1000mg at bedtime and made the order for Depakote ER 1000mg Daily at 0900. Since pt received the Depakote at bedtime last night, he ordered for it to be held this am and start the order at 0900 tomorrow.
[2024-09-28 14:00] VITALS: BP 124/80; PULSE 97; RESP 18; TEMP 36.6; O2SAT 97
[2024-09-28] MEDS: ibuprofen 600 mg Tablet PO (17:02)
[2024-09-28 19:44] VITALS: BP 130/91; PULSE 96; RESP 16; TEMP 36.6; O2SAT 98
[2024-09-28] MEDS: trazodone 50 mg Tablet PO (20:18)
[2024-09-28] MEDS: hyDROXYzine 25 mg Capsule 50 MG PO (20:18)
[2024-09-29] MEDS: nicotine 2 mg Gum BUCCAL ×4 (05:19→19:17)
[2024-09-29] MEDS: levothyroxine 100 mcg Tablet PO (05:20)
--- NOTE | 2024-09-29 05:46 | PC.NURSE ---
Patient has been cooperative with care. He verbalized increased AH earlier in the shift. He verbalized fleeting SI without a plan. He informed this RN that he would come to staff for assistance if he felt he would act on these feelings. He endorsed anxiety rated 5/10. He had a depressed affect. Staff monitored him closely through the night. Patient received Vistaril and trazadone and slept the majority of the shift. He is up this morning at nurses station apologizing for last night. He states that he feels better and has no voices this morning.
[2024-09-29 06:00] VITALS: BP 122/65; PULSE 76; RESP 18; TEMP 36.6; O2SAT 96; BMI 31.1
[2024-09-29] MEDS: ARIPiprazole 10 mg Tablet PO (09:00)
[2024-09-29] MEDS: pantoprazole DR 40 mg Tablet PO (09:00)
[2024-09-29] MEDS: escitalopram 10 mg Tablet 20 MG PO (09:00)
[2024-09-29] MEDS: meloxicam 7.5 mg tablet PO (09:00)
[2024-09-29] MEDS: lisinopril 10 mg Tablet PO (09:00)
[2024-09-29] MEDS: divalproex ER 500 mg Tablet (24H) 1000 MG PO (09:00)
[2024-09-29] MEDS: metoprolol succinate ER (24 HR) 25 mg Tablet PO (09:00)
--- NOTE | 2024-09-29 11:05 | W.PM.NPUPNS ---
Subjective NPU Subjective: 34-year-old male with a history of schizoaffective disorder admitted with auditory hallucinations and suicidal ideation. The patient had reported that he was feeling better today. He had continued to complain of having some anxiety. He had expressed optimism that he would be able to live back in his previous alf. He had reported that he had struggled with managing his own care while living by himself in specialized housing. He had indicated that he had been compliant with his monthly Abilify dosing. He had acknowledged that he had not been compliant with his oral paliperidone though. Mental Status Exam MSE Comments: Patient had disheveled appearance, malodorous unkempt, who was less sedated today. He appeared to recognize the telegraphic typewriter installer of this note. There was no evidence of any abnormal involuntary motor movements, tics, or tremors appreciated. His gait was normal. His speech was slow and steady with decreased volume. His mood was described as depressed. His affect was blunted. His thought process was linear, logical, and goal-directed. His thought content revealed suicidal ideation with no homicidal ideation. He had endorsed auditory hallucinations but did not appear to be responding to internal stimuli. There was no clear evidence of delusional thinking. His attention span was poor. His recent and remote memory were poor. His insight is limited. His judgment is poor. His impulse control appeared poor. Vitals/I&O/Wt Last Vital Signs Temp 97.8 F 09/29/24 06:00 Pulse 76 09/29/24 06:00 Resp 18 09/29/24 06:00 BP 122/65 09/29/24 06:00 Pulse Ox 96 09/29/24 06:00 O2 Del Method Room Air 09/29/24 06:00 Weight last 48 hrs Weight 95.878 kg Data NPU 09/27/24 01:09 09/27/24 01:09 A&P Assessment and plan (1) Schizoaffective disorder, depressive type: Plan 34-year-old male with a history of schizoaffective disorder depressed type presents with reemergence of command auditory hallucinations that have been more prominent since he discontinued his oral antipsychotic. He has been compliant with his monthly Abilify but it does not appear to be enough to help with managing his psychotic symptoms. #1.? Engage patient in individual milieu and group therapy. #2?? Recommend sober living treatment at the highest level of care to which the patient is willing to commit #3??? Restart Lexapro, depakote, synthroid, lisinopril as prescribed. Continue Abilify 10mg daily to target psychosis. Abilify maintena shot 400mg due on 10/04/24 #4?? TO-15 minute checks? #5?? Will attempt to gather collateral information PDMP PDMP Reviewed: Not Reviewed Involuntary Hold Information Hold Status: Legal Status: 96 Hour Hold Date/Time Hold Expires: 10/03/24@0227 96 Hour Hold: 96 Hour Involuntary Admission: No Attestations NPU Medical Necessity Statement*: Inpatient hospitalization is medically necessary and deemed to be the clinically appropriate intervention at this time. Medications will be adjusted and initiated as indicated.? The patient?s likely length of stay is 4-6 days. ? Coding Level of Care Code Acute Code for g Fwd Diagnoses Schizoaffective disorder, depressive type F25.1
[2024-09-29 14:00] VITALS: BP 122/77; PULSE 87; RESP 18; TEMP 36.4; O2SAT 98
[2024-09-29] MEDS: ibuprofen 600 mg Tablet PO (17:03)
[2024-09-29 19:39] VITALS: BP 132/85; PULSE 98; RESP 16; TEMP 36.6; O2SAT 97
[2024-09-29] MEDS: hyDROXYzine 25 mg Capsule 50 MG PO (21:33)
[2024-09-30] MEDS: nicotine 2 mg Gum BUCCAL ×7 (05:09→20:17)
[2024-09-30] MEDS: levothyroxine 100 mcg Tablet PO (05:09)
[2024-09-30 06:00] VITALS: BP 130/77; PULSE 98; RESP 18; TEMP 36.3; O2SAT 98
[2024-09-30] MEDS: meloxicam 7.5 mg tablet PO (07:47)
[2024-09-30] MEDS: ARIPiprazole 10 mg Tablet PO (07:47)
[2024-09-30] MEDS: metoprolol succinate ER (24 HR) 25 mg Tablet PO (07:47)
[2024-09-30] MEDS: lisinopril 10 mg Tablet PO (07:47)
[2024-09-30] MEDS: divalproex ER 500 mg Tablet (24H) 1000 MG PO (07:48)
[2024-09-30] MEDS: pantoprazole DR 40 mg Tablet PO (07:48)
[2024-09-30] MEDS: escitalopram 10 mg Tablet 20 MG PO (07:48)
--- NOTE | 2024-09-30 09:06 | PC.NURSE ---
Pt states that he was up and down all night. He rates his anxiety a 2/10 and depression a 0/10. No reports of SI/HI or hallucinations. He states that he has lower back pain of 5/10.
[2024-09-30 14:00] VITALS: BP 131/79; PULSE 78; RESP 18; TEMP 36.7; O2SAT 97
[2024-09-30] MEDS: ibuprofen 600 mg Tablet PO (17:45)
--- NOTE | 2024-09-30 17:46 | P.NPUPN_ITS ---
Subjective NPU 2 Subjective: 34-year-old male with a history of schizoaffective disorder admitted with auditory hallucinations and suicidal ideation. Patient had reported that he was not feeling suicidal. He reported that he was feeling much better. He denied any feelings of hopelessness. He had continued to struggle with self-care without any prompting from staff. He had reported feeling less tired. He continued to report that he did not want to go back to the lamp light today or in the future as he states that he would stay with his mother or would stay with a friend when he was stabilized here. He had admitted to having struggles with maintaining the ability to care for himself without some additional supports. He had reported no side effects from the increase of Abilify to 10 mg daily combined with his Abilify Maintena shot received routinely. The patient had reported no change in Depakote dosing for months. He had reported some difficulties with falling asleep. He had continued to report having struggles with organization and completing tasks on a daily basis. He had described being frequently bored. Mental Status Exam 2 MSE Comments: Patient had disheveled appearance, with some improvement in hygiene today. He appeared to recognize the telegraphic typewriter repairer of this note. There was no evidence of any abnormal involuntary motor movements, tics, or tremors appreciated. His gait was normal. His speech was slow and steady with normal volume. His mood was described as better. His affect was blunted and mood incongruent. His thought process was linear, logical, and goal-directed. His thought content revealed no suicidal ideation with no homicidal ideation today. He had endorsed auditory hallucinations but reported them as quietier. There was no clear evidence of delusional thinking. His attention span was poor. His recent and remote memory were poor. His insight is limited. His judgment is poor. His impulse control appeared poor. Vitals/I&O/Wt Last Vital Signs Temp 98.0 F 09/30/24 14:00 Pulse 78 09/30/24 14:00 Resp 18 09/30/24 14:00 BP 131/79 09/30/24 14:00 Pulse Ox 97 09/30/24 14:00 O2 Del Method Room Air 09/30/24 14:00 Weight last 48 hrs Weight 95.878 kg Data NPU 09/27/24 01:09 09/27/24 01:09 A&P Assessment and plan (1) Schizoaffective disorder, depressive type: Plan 34-year-old male with a history of schizoaffective disorder depressed type presents with reemergence of command auditory hallucinations that have been more prominent since he discontinued his oral antipsychotic. He has been compliant with his monthly Abilify but it does not appear to be enough to help with managing his psychotic symptoms. #1.? Engage patient in individual milieu and group therapy. #2?? Recommend sober living treatment at the highest level of care to which the patient is willing to commit #3??? Restart Lexapro, depakote, synthroid, lisinopril as prescribed. Continue Abilify 10mg orally daily to target psychosis. Abilify maintena shot 400mg due on 10/04/24 #4?? TO-15 minute checks? #5?? Will attempt to gather collateral information. Check [place] LEVEL in AM 10/01/24. PDMP PDMP Reviewed: Not Reviewed Involuntary Hold Information 2 Hold Status: Legal Status: 96 Hour Hold Date/Time Hold Expires: 10/03/2024 @ 0227 96 Hour Hold: 96 Hour Involuntary Admission: No Attestations NPU 2 Medical Necessity Statement*: Inpatient hospitalization is medically necessary and deemed to be the clinically appropriate intervention at this time. Medications will be adjusted and initiated as indicated.? The patient?s likely length of stay is 3-4 days. ? Coding Level of Care Code Acute Code for [facility] Diagnoses Schizoaffective disorder, depressive type F25.1
[2024-09-30 20:11] VITALS: BP 125/79; PULSE 85; RESP 18; TEMP 36.4; O2SAT 97
[2024-09-30] MEDS: trazodone 50 mg Tablet PO (20:39)
[2024-09-30] MEDS: hyDROXYzine 25 mg Capsule 50 MG PO (20:39)
[2024-09-30] MEDS: acetaminophen 325 mg Tablet 650 MG PO (21:42)
[2024-10-01 05:10] VITALS: BP 136/87; PULSE 104; RESP 18; TEMP 36.6; O2SAT 98
[2024-10-01] MEDS: nicotine 2 mg Gum BUCCAL ×2 (05:16→08:16)
[2024-10-01] MEDS: levothyroxine 100 mcg Tablet PO (05:16)
[2024-10-01] MEDS: pantoprazole DR 40 mg Tablet PO (08:13)
[2024-10-01] MEDS: meloxicam 7.5 mg tablet PO (08:14)
[2024-10-01] MEDS: ARIPiprazole 10 mg Tablet PO (08:14)
[2024-10-01] MEDS: lisinopril 10 mg Tablet PO (08:14)
[2024-10-01] MEDS: metoprolol succinate ER (24 HR) 25 mg Tablet PO (08:14)
[2024-10-01] MEDS: escitalopram 10 mg Tablet 20 MG PO (08:14)
[2024-10-01] MEDS: divalproex ER 500 mg Tablet (24H) 1000 MG PO (08:16)
[2024-10-01 10:02] VITALS: BP 136/87; PULSE 104; RESP 17; TEMP 36.6; O2SAT 98
--- NOTE | 2024-10-01 14:04 | W.PM.NPUDCS ---
Diagnoses at Discharge Discharge Diagnosis (1) Schizoaffective disorder, depressive type: Status: Chronic Reason for Visit Reason for Visit: SI Brief History: History of Present Illness Real Black is a 34 year old male with a history of schizoaffective disorder who presented to the emergency department with complaints of command auditory hallucinations stating to kill himself. He had reported that he had been overwhelmed by depression. He reports that the auditory hallucinations have been more prominent since he had discontinued his oral Invega 1.5 mg daily. The patient reports that he was last hospitalized in the psychiatric facility in February 2024. He reports that he has had increased problems with sleeping excessively. He reports difficulties with low energy and low motivation. He states that 2 months ago he had left [facility] and states that he feels that it is a big mistake. He reports that he struggles with managing his own care. He reports that he is often forgetful and unable to take his medications routinely. He reports having problems with concentration. He reports that he continues to use marijuana routinely but denies any illicit drug use or alcohol. The patient reports that he had been compliant with his monthly Abilify shots. He had reported that he continues to struggle with paranoia. He reports having increased problems with memory. Inpatient psychiatric history: He has a history of multiple inpatient psychiatric hospitalizations with a previous diagnosis of schizoaffective disorder, methamphetamine use disorder and anxiety. He reports his most recent hospitalization was at [facility] in [facility]. Outpatient psychiatric history: Patient has been receiving services through the [facility] since 2015. He does have a history of attempting to hang himself in 2012. Previous records indicate a history of schizophrenia. He is currently followed at [facility] with [facility] services. He has a history of multiple medication trials with a history of multiple suicide attempts. He had previously been treated for ADHD as a child. Substance abuse history: He had previously used alcohol beginning at the age of 13. He continues to use cannabis. He had also reported history of methamphetamine use in the past along with nicotine use. He is currently not in any kind of substance abuse treatment other than [facility] services. Medical history: History of tonsillectomy and history of foot fracture. He has a history of hypothyroidism, hypertension and GERD. Medications: metoprolol, omeprazole, paliperidone, abilify maintena IM 400mg (last 09/05/24), depakote er 1000mg daily, lexapro 20mg daily, hydroxyzine 25mg bid, trazodone 50mg daily. Allergies: Haldol, Zyprexa, Latuda, chlorpromazine Family history: History of anxiety and depression, history of alcoholism Legal history: None reported Social history: He was born in [place] his parents moved to [place] when he was in the fifth grade. He had graduated high school. He had reported no history of sexual physical or emotional abuse. He had no history of service. He had reported that he had been treated for ADHD when he was a child but had no clear history of learning support although previous records indicate he had been in special education classes. He is currently not and is living with a friend in [facility]. Excerpt from NPU Discharge summary from 08/08/23 Discharge Diagnosis (1) Schizoaffective disorder, depressive type: Status: Chronic (2) Suicidal ideation: Status: Resolved (3) Auditory hallucinations: Status: Resolved Reason for Visit SI Brief History: History of Present Illness Real Black is a 33 year old male who presented to the emergency department with complaints of hearing voices telling him to harm himself. The patient had reported that he had had a visit with his therapist on the day of admission and after the visit he had felt more anxious and this led to the presence of voices which cascaded into the emergence of suicidal thoughts. Patient was admitted to the neuropsychiatric unit for further evaluation and treatment. He reports that he has been less preoccupied by hallucinations since the change from his last admission in April 2023. He continues to report having occasional panic attacks lasting about 10 minutes with shortness of breath and chest pain that appear to be untriggered. Patient had continued to report that he had been smoking weed on a daily basis. He had denied any worsening depression. He did not complain of problems with regarding his energy. He had reported compliance with his current medication regimen. Patient continues to report having problems managing chronic worry. He reports that he frequently feels that the worry is out of control. He had reported that he had recently revealed in therapy about having some particular sexual fetish and reviewing that information at his therapy appointment seem to cause greater anxiety when he returned home. He reports no other substantial changes since his last admission in April 2023. He reports that he continues to receive case management services and [facility] services. Current medications: Abilify 400 mg intramuscularly every 28 days, Wellbutrin XL 300 mg daily, Depakote 1000 mg at night, hydroxyzine 25 mg twice a day, Synthroid 100 mcg daily, lisinopril 10 mg daily, metoprolol 25 mg daily, omeprazole 20 mg daily, Invega 6 mg at night, trazodone 50 mg at night NPU D/C Summary from 05/16/23 Diagnoses at Discharge Discharge Diagnosis (1) Schizoaffective disorder, depressive type: Status: Chronic (2) Suicidal ideation: Status: Resolved (3) Auditory hallucinations: Status: Resolved Reason for Visit I Brief History: History of Present Illness Real Black is a 32 year old male currently residing at the [facility] who presented to the emergency department with complaints of command auditory hallucinations telling him to kill himself. He had reported that he had been compliant with his Abilify monthly injection but states that over the past 3 to 4 days he has been having more auditory hallucinations telling him to harm himself. He states that the voices are chronically present but states that they had been more manageable but approximately 1 week till his next injection of Abilify he has been having an emerging problem of increased prevalence of the hallucinations. Patient denied any homicidal ideation and reports that he is often overwhelmed. He states that a recent stressor for him had been that he had been worried about going on vacation to [place] with his family members and stated that he was under a great deal of stress. Patient was admitted to the neuropsychiatric unit for further evaluation and treatment. He reports no substantial changes since his last hospitalization and discharged from the neuropsychiatric unit on 03/23/2023. Excerpt from NPU DISCHARGE 03/23/23 Discharge Diagnosis (1) Schizoaffective disorder, depressive type: Status: Chronic(2) Suicidal ideation: Status: Resolved(3) Auditory hallucinations: Status: Resolved Reason for Visit SI Brief History: History of Present Illness Real Black is a 32 year old male most recently hospitalized in November 2022 with a history of schizoaffective disorder who presented to the emergency department with complaints of auditory hallucinations telling him to harm himself. Patient was admitted to the neuropsychiatric unit for further diagnosis and treatment. Patient reported that he has been compliant with his medications and reports that he has recently received his monthly injection of Abilify approximately 3 days ago and states that usually his mood and his voices become quieter but reports that at this time it is not been the case. He reports that he has been hearing voices telling him to harm himself. He does endorse some depressed mood. He reports some difficulties with concentration. He had stated that he is concerned that if his medications are not adjusted that he may do something to hurt himself. Inpatient psychiatric history: Multiple inpatient hospitalizations Outpatient psychiatric history: He reports receiving [facility] services at [facility] on an outpatient basis with weekly visits Current medications: Abilify Maintena 400 mg IM every 28 days, Wellbutrin SR 200 mg daily, Depakote 1000 mg at night, hydroxyzine 25 twice a day as needed, levothyroxine 100 mcg daily, lisinopril 10 mg daily, metoprolol 25 mg daily, omeprazole 25 mg daily, Seroquel 100 mg as needed at night Allergies: Latuda, olanzapine, Haldol, Chlorpromazine, Social History: He currently lives in a senior living in [facility]. See previous social history below. He reports is unchanged from most recent hospitalization. NPU Discharge Summary 11/23/22 Discharge Diagnosis (1) Schizoaffective disorder, depressive type:?Status:?Chronic(2) Suicidal ideation:?Status:?Resolved(3) Auditory hallucinations:?Status:?ChronicSI? Brief History: HPI NPU History of Present Illness Real Black is a 32 year old male who presented to the ED with the following report: Chief Complaint: Psychiatric Symptoms Stated Complaint: SI Time Seen by Provider: 11/17/22 07:11 Source: patient Mode of arrival: ambulatory Limitations: no limitations History of Present Illness:?? Patient is a 32-year-old male with a history of schizoaffective disorder here for complaints of auditory hallucinations stating that the voices are telling him to harm himself.? He states they are not telling him any specific ways to harm himself. He does state he feels like he might act on the voices.? He reports a previous suicide attempt years ago.? He states he does have a psychiatrist at [facility].? Patient is requesting hospitalization.? He denies homicidal ideations.? No visual hallucinations.? Denies drug or alcohol use.? Patient is a resident at [facility]. ? MD complaint: suicidal ideation and other (auditory hallucinations) Onset (ago): day(s) Duration: constant History of same: Yes Relieving factors: none Exacerbating factors: none Associated psychiatric symptoms: depression, suicidal ideation and auditory hallucinations Associated symptoms: Reports auditory hallucinations, depression and suicidal ideation; Deny visual hallucinations or homicidal ideation Treatments prior to arrival: none If self harm: admits thoughts of self harm He was admitted to the neuropsychiatric unit for definitive treatment of those issues.? He presents today reporting he has been doing well in general in the past 13 months with only intermittent AH occasionally with good medication adherence overall. He reports that he had been doing well until about 3 weeks ago when for some reason he cannot explain he began being more drawn to playing his video games at night and staying up.? As he was having 3 and 4-day stretches where he was having little to no sleep his hallucinations returned and they started getting worse eventually leading to him having command auditory hallucinations to harm himself but not specifically to kill himself per se.? He reports that as a got out of control he knew he needed to come in and may be get his sleep back under control and consider changes in his medication.? We discussed the risks, benefits and alternatives of him starting Abilify as we had attempted this in the past and he understood and agreed to proceed as is documented in this note.? This is in part due to the fact that increases in his Geodon have proved challenging such that he has been somewhat stuck at this 40 mg p.o. twice daily dosing.? Also he had been on several medications back then and polypharmacy was a concern but he has been able to decrease some of those medications.? We reviewed his records and identified his 10/03/2022 outpatient evaluation from [facility] as being a comprehensive exploration of his history and excerpt is included below. Per his 10/03/2022 [facility] inpatient psychiatric discharge summary: Discharge Diagnosis (1) Suicidal ideation:? ? ? Status: Acute(2) Auditory hallucinations:? ? ? Status: Acute(3) Schizoaffective disorder, depressive type:? ? ? Status: ChronicReason for Visit Reason for Visit:??SI? Brief History: Real Black is a 31 year old male admitted to the neuropsychiatry unit for the following report. Mr. Black is a 31-year-old male with history of schizoaffective disorder presenting to the emergency department due to suicidal ideation and hallucinations.? He reports history of similar however had been doing well.? Symptoms started yesterday morning without known specific provoking factor.? He reports compliance with medication regimen and denies other associated significant changes in related depressive symptoms.? Intensity of hallucinations have been worsening.? They tell him to hurt himself.? He has had increased thoughts of hurting himself because of these voices.? Otherwise denies medical complaints.? No other specific changes in health, exacerbating, or alleviating factors identified. He was admitted to the neuropsychiatry unit for definitive treatment of these issues.? He is well known to this unit with multiple admissions.? The last admission was in June and at that time we changed him from Geodon to Invega and increased his Wellbutrin to 300 mg daily.? He feels like those changes have been working well.? He denies anything that could precipitate a worsening of his auditory hallucinations.? He says he occasionally has flareups of his hallucinations but this is much worse than normal.? He has been generally doing well since he left the hospital in June.? He reported to his therapist and psychiatric nurse practitioner that he had been doing well in recent appointments.? He denies any drug use.? He denies any stress at [facility] where he lives.? He denies any family stress.? He says that he has been compliant with medications.? His mood has been fairly good.? He requested that his Invega be increased.? I agreed to do that for a couple of days and then reevaluate. Hospital Course He slowly acclimated to the individual, group and milieu therapies provided.? He was continued on his medications except for Invega was gradually increased to 9 mg in the morning and 6 mg at bedtime.? He had urinary incontinence on 6 mg twice a day and Cogentin was added.? He had a similar problem with Geodon.? We talked about trying a different antipsychotic but he felt that Invega was good for him and wanted to try that with the Cogentin and increase the dose.? He tolerated these doses and showed steady improvement during his stay. ? He was able to contract for safety outside hospital prior to discharge.? During the hospitalization, patient had routine laboratory studies which were within normal limits except for few outliers.? Additionally there was a general medical evaluation which was also within normal limits and revealed no new acute processes. Discharge Summary: At the time of discharge, lethality was denied and psychosis was resolving.? Mood and anxiety were well managed.? Patient endorsed a plan to follow-up with the aftercare recommendations of the treatment team.? Patient was evaluated and deemed to be absent credible lethality, and had achieved the maximum benefit from an inpatient hospitalization, so was discharged. Per his 07/07/2020 [facility] outpatient psychiatric evaluation: [facility] History and Physical Time In: 13:56 Time Out: 14:57 Chief Complaint: here for therapy and medications History of Present Illness: Information retrieved and edited from [facility] Comp. Clinical Assessment completed on: 05/26/20: anxiety and nervousness, wants therapy and medication management; moved here from [place]. Currently living at [facility], since 04/29/20. Before this arrangement, he was in [place],? 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 He has moved several times back and forth from [place] to [place]. He is hoping his father will retire and his parents will move to [place]; they have a farm in [place]. Real had services with [facility] in 2015. Says he was inpatient due to his voices getting bad and he was suicidal. He says his current diagnosis are bipolar and now he is diagnosed with schizoaffective disorder; he is currently on medications. He is not aware if anyone in his family has bipolar or schizophrenia. He has had suicidal thoughts, chronic in nature. He tried to end his life in 2012 by hanging, reports the rope broke; previously held scissors to his throat; a cousin called him and that is what stopped him from doing it. He lived at [facility](assisted living facility in [place]) for four years, then moved to his Mom's friend's home in [place], [place]. Says he was referred to [facility] by friends of the [place]. Reported symptoms difficulty concentrating, thoughts hard to dismiss, annoyed and irritable, nervous feeling, worries and fears. Reported symptoms difficulty concentrating, thoughts hard to dismiss, annoyed and irritable, nervous feeling, worries and fears.? Denied fatigue, pains, headache, or digestive problems. Current habits: Drinks 3 large glasses of tea per day; sometimes drinks 2 cups of coffee in the morning and 3 sodas during the day.? Currently reports he sleeps from about midnight or 1 AM up until about 8 or 9 AM; usually obtains about 5 to 6 hours of rest during that time.? He rarely takes a nap in the day.? Sometimes skips breakfast, and usually eats lunch or dinner.? He tries to walk 2 or 3 times per week (up to 1 and half to 2 miles at a time) for physical exercise. History Past Psychiatric History:? Information retrieved and edited from [facility] Comp. Clinical Assessment completed on: 05/26/20:? Real had services with [facility] in 2016; dx were: F25.1 Schizoaffective DO, Depressed Type; F15.20 Methamphetamine Use Disorder; he has had several NPU stays at [facility]; refer to chart. Most recent inpatient hospitalization was from? 06/12/20 to 06/15/20;included suicidal ideation; depressive disorder; and schizoaffective disorder. Real says hospitalization was due to his voices getting bad and he felt suicidal.? History of chronic suicidal thoughts with a history of suicide gesture/attempt including: He tried to end his life in 2012 by hanging; the rope broke, he had scissors held to his throat; says a cousin called him and that is what stopped him from doing it. Real says every now and then his voices act up. He says he has one unrecognized male voice which tells him to do bad stuff to himself, but not to anyone else.? Usually has increased depression and anxiety in the afternoon, usually from 2 PM to 5 PM.? Reports he can a good day, and then out of the blue he doesn?t feel like doing anything; he feels worthless and down in the dumps for no reason; he says every now and then something may trigger it. He has anger problems and when he gets mad at himself, he has hurt himself in the past; hx of cutting; last time he cut himself was in 2018. He used a knife; was cutting his wrist, but hasn't cut deeply enough to be in the hospital. He expressed inability to concentrate, difficulty completing tasks, delayed responses during conversations.? Says he had ADHD as a child; reported that he attended special classes, and took Concerta, Ritalin, and Adderall.? Says the medication was beneficial at school, but usually wore off by the time he got home.? Says he is able to control ADHD symptoms as an adult. Family History: Information retrieved and edited from [facility] Comp. Clinical Assessment completed on: 05/26/20 Family Psychiatric History: Anxiety and Depression History of Suicide in the Family: No Family history of substance abuse: Alcohol (father) Past Medical History: Information retrieved and edited from [facility] Comp. Clinical Assessment completed on: 05/26/20 Primary Care Provider: Yes (Dr. Flowers); last physical exam: Within past year (05.07.20) Client's Medical History: No major medical illness Surgical Procedure: Tonsillectomy; history of foot fracture Substance Use History: Information retrieved and edited from [facility] Comp. Clinical Assessment completed on: 05/26/20 Client history of substance abuse: Alcohol (yes) Age of onset (years): 13 Pattern of use: denied current use and has not used in 3 years; Cannabis (yes) Age of onset (years): 19 Pattern of use: denied current use; has not used in 3 years ; Amphetamine (yes) Age of onset (years): 21 Pattern of use: (previous snorting and smoking it );denied current use; has not used in 3 years; Nicotine (yes) Age of onset (years): 19 Pattern of use: current use: 1 ppd Client?s drug and/or alcohol use in the last 30 days: No Social History: Information retrieved and edited from [facility] Comp. Clinical Assessment completed on: 05/26/20 Childhood history: Real was born in [place]; at age [age], his parents moved? near [place], [place]. When he was in 5th grade, he moved to [place]. He graduated high school, then moved to [place], [place]. He says he has a good childhood; his parents were in the home growing up and are still together. He is an only child. He is single; has no children. 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 History: Client denies service Abilities/Interests: tries to stay busy, likes to help others; he loves being outside; listens to music Legal Status/History: Current legal issues denied; denies previous arrests incarceration. Spiritual Pursuits: Other (he prays) Highest Education Level Reached: college (12th grade; reports he had ADHD in school and was on meds.) Academic Performance: Performance at grade level Hospital Course Hospital Course During the hospitalization, the patient had routine laboratory studies which were within normal limits. Additionally, there was a general medical evaluation which was also within normal limits and revealed no new acute processes.? Patient had complained of having increased anxiety and reported the presence of auditory hallucinations and depression. The patient was started on Lexapro and titrated up to a dose of 20 mg to target anxiety and depression with noted improvement. At the time of discharge, lethality was denied and psychosis was resolving.? Mood and anxiety were well managed.? The patient endorsed a plan to avoid all drugs of abuse and follow up with the aftercare recommendations of the treatment team.? The patient was evaluated and deemed to be absent credible lethality and had achieved the maximum benefit from an inpatient hospitalization, and so was discharged. The patient's Wellbutrin was not initiated and not recommended to continue upon discharge. It was also recommended the patient remain off of BuSpar as well has he appeared to be less anxious with the once a day Lexapro.? Hospital Course Hospital Course The patient admitted that he had not been compliant with his oral paliperidone. He had been compliant with the Abilify monthly intramuscular injection and it appeared that it had been ineffective by itself to stabilize his mood and manage his psychosis. Depakote was moved to a once a day morning dose to minimize sedation. Furthermore, Abilify oral was added and titrated to a dose of 10 mg daily with some improvement noted rather quickly. It was strongly encouraged that the patient follow-up with his primary care provider as he complains of excessive daytime sleepiness that appears to be associated with a diagnosis of sleep apnea. He had been noncompliant with his continuous positive airway pressure machine. During the hospitalization, the patient had routine laboratory studies which were within normal limits except for a few outliers.? Additionally, there was a general medical evaluation which was also within normal limits and revealed no new acute processes.? At the time of discharge, lethality was denied and psychosis was resolving.? Mood and anxiety were well managed.? The patient endorsed a plan to avoid all drugs of abuse and follow up with the aftercare recommendations of the treatment team.? The patient was evaluated and deemed to be absent credible lethality and had achieved the maximum benefit from an inpatient hospitalization, and so was discharged. ?[facility] but he chose to live with a friend instead at discharge. Involuntary Hold Information Hold Status: Legal Status: 96 Hour Hold Date/Time Hold Expires: 10/03/2024 @ 0227 96 Hour Hold: 96 Hour Involuntary Admission: No Mental Status Exam MSE Comments: Patient had casually dressed, pleasant and cooperative with improved hygiene. There was no evidence of any abnormal involuntary motor movements, tics, or tremors appreciated. His gait was normal. His speech was normal in rate and steady with normal volume. His mood was described as better. His affect remained flat. His thought process was linear, logical, and goal-directed. His thought content revealed no suicidal ideation with no homicidal ideation today. He had denied auditory hallucinations or visual hallucinations. There was no clear evidence of delusional thinking. His attention span was better. His recent and remote memory were grossly intact. His insight is limited. His judgment is improved. His impulse control appeared fair. Discharge Data Studies Completed and Pending: Laboratory Results WBC 8.76 10^3/uL (3.2 9-11.43) 09/27/24 01:09 RBC 4.89 10^6/uL (3.8 5-5.65) 09/27/24 01:09 Hgb 15.50 g/dL (11.27 -16.99) 09/27/24 01:09 Hct 44.9 % (37-53) 09/27/24 01:09 MCV 91.8 fl (82-101) 09/27/24 01:09 MCH 31.7 pg (27-33) 09/27/24 01:09 MCHC 34.5 g/dL (30-55) 09/27/24 01:09 RDW 12.6 % (12.1-15.1 ) 09/27/24 01:09 Plt Count 219 10^3/cmm (157 -399) 09/27/24 01:09 MPV 9.9 fL (7.4-10.4) 09/27/24 01:09 Neut % (Auto) 56.2 % 09/27/24 01:09 Lymph % (Auto) 36.1 % 09/27/24 01:09 [place] % (Auto) 5.5 % 09/27/24 01:09 Eos % (Auto) 1.6 % 09/27/24 01:09 Baso % (Auto) 0.3 % 09/27/24 01:09 Neut # (Auto) 4.92 10^3/uL (1.8 -7.7) 09/27/24 01:09 Lymph # (Auto) 3.2 10^3/uL (0.8- 4.8) 09/27/24 01:09 [place] # (Auto) 0.5 10^3/uL (0.2- 0.9) 09/27/24 01:09 Eos # (Auto) 0.1 10^3/uL (0.0- 0.8) 09/27/24 01:09 Baso # (Auto) 0.0 10^3/uL (0.0- 0.1) 09/27/24 01:09 Nucleated RBC % (a uto) 0 % 09/27/24 01:09 Nucleated RBCs # 0.0 /100WBC 09/27/24 01:09 Sodium 136 mmol/L (136-1 45) 09/27/24 01:09 Potassium 3.8 mmol/L (3.5-5 .1) 09/27/24 01:09 Chloride 101 mmol/L (98-10 7) 09/27/24 01:09 Carbon Dioxide 20 mmol/L (22-29) L 09/27/24 01:09 Anion Gap 18.8 (5-19) 09/27/24 01:09 BUN 18 mg/dL (6-20) 09/27/24 01:09 Creatinine 0.7 mg/dL (0.7-1. 2) 09/27/24 01:09 GFR Calculation 129.9 mL/min (90- 130) 09/27/24 01:09 Glucose 92 mg/dL (65-115) 09/27/24 01:09 Calculated Osmolal ity 284 mOsm/kg (285- 295) L 09/27/24 01:09 Calcium 9.4 mg/dL (8.5-10 .5) 09/27/24 01:09 Total Bilirubin 0.2 mg/dL (0.15-1 .2) 09/27/24 01:09 AST 5 U/L (0-40) 09/27/24 01:09 ALT < 5 U/L (0-41) 09/27/24 01:09 Alkaline Phosphata se 36 U/L (40-130) L 09/27/24 01:09 Total Protein 7.2 g/dL (6.6-8.7 ) 09/27/24 01:09 Albumin 4.2 g/dL (3.5-5.2 ) 09/27/24 01:09 Globulin 3.0 g/dL (1.3-4.6 ) 09/27/24 01:09 TSH 7.77 uIU/mL (0.27 -4.20) H 09/27/24 01:09 Urine Color Yellow (Yellow) 09/27/24 01:09 Urine Appearance Clear (CLEAR) 09/27/24 01:09 Urine pH 5.5 (5-7) 09/27/24 01:09 Ur Specific Gravit y 1.022 (1.005-1.0 30) 09/27/24 01:09 Urine Protein Trace (Negative) A 09/27/24 01:09 Urine Glucose (UA) Negative (Normal ) 09/27/24 01:09 Urine Ketones Trace (Negative) 09/27/24 01:09 Urine Blood Negative (Negati ve) 09/27/24 01:09 Urine Nitrate Negative (Negati ve) 09/27/24 01:09 Urine Bilirubin Negative (Negati ve) 09/27/24 01:09 Urine Urobilinogen 1.0 mg/dL (Negati ve) 09/27/24 01:09 Ur Leukocyte Unique ase Negative (Negati ve) 09/27/24 01:09 Urine RBC 0-2 /hpf (0-2) 09/27/24 01:09 Urine WBC 0-5 /hpf (0-5) 09/27/24 01:09 Ur Squamous Epith Cells 0-5 /hpf (0-5) 09/27/24 01:09 Amorphous Sediment Not Reportable 09/27/24 01:09 Urine Bacteria None seen /hpf (N ONE) 09/27/24 01:09 Hyaline Casts 0-4 /lpf H 09/27/24 01:09 Salicylates < 0.3 mg/dL (3-10 ) L 09/27/24 01:09 Urine Opiates Scre en Negative ng/mL (N egative) 09/27/24 01:09 Acetaminophen < 5.0 ug/mL (10-3 0) L 09/27/24 01:09 Ur Barbiturates Sc reen Negative ng/mL (N egative) 09/27/24 01:09 Ur Phencyclidine S crn Negative ng/mL (N egative) 09/27/24 01:09 Ur Amphetamines Sc reen Negative ng/mL (N egative) 09/27/24 01:09 U Benzodiazepines Scrn Negative ng/mL (N egative) 09/27/24 01:09 Urine Cocaine Scre en Negative ng/mL (N egative) 09/27/24 01:09 U Marijuana (THC) Screen Positive ng/mL (N egative) H 09/27/24 01:09 Ethyl Alcohol < 10 mg/dL (0-10) 09/27/24 01:09 Vitals: Last Vital Signs Temp 97.9 F 10/01/24 10:02 Pulse 104 H 10/01/24 10:02 Resp 17 10/01/24 10:02 BP 136/87 10/01/24 10:02 Pulse Ox 98 10/01/24 10:02 O2 Del Method Room Air 10/01/24 05:10 Discharge Plan Discharge Patient Disposition: Home Condition: Stable Prescriptions: New trazodone 100 mg tablet 100 mg PO BEDTIME 30 Days Qty: 30 1RF divalproex 500 mg Tablet Extended Release 24 Hr 1,000 mg PO .AM 30 Days Qty: 60 1RF aripiprazole 10 mg Tablet 10 mg PO DAILY Qty: 30 1RF Continued acetaminophen [Tylenol Extra Strength] 500 mg tablet 1,000 mg PO Q6H PRN (Reason: Pain) Abilify Maintena 400 mg suspension,extended rel recon 400 mg IM Q28D Qty: 1 5RF Rx Instructions: Administer one IM injection (400 mg) every 28 to 30 days hydroxyzine pamoate 25 mg capsule 25 mg PO BID Qty: 60 5RF Rx Instructions: Take 1 capsule twice daily, morning and night escitalopram oxalate 20 mg tablet 20 mg PO DAILY 30 Days Qty: 30 5RF Rx Instructions: Take one tablet by mouth once daily metoprolol succinate 25 mg tablet extended release 24 hr 25 mg PO DAILY levothyroxine [Levoxyl] 100 mcg tablet 100 mcg PO DAILY lisinopril 10 mg tablet 10 mg PO DAILY meloxicam 7.5 mg tablet 7.5 mg PO DAILY omeprazole 20 mg Capsule,Delayed Release(Dr/Ec) 20 mg PO DAILY@16 Discontinued trazodone 50 mg tablet 50 mg PO BEDTIME PRN (Reason: Sleep) Qty: 30 5RF Rx Instructions: Take one tablet daily at bedtime, if needed for sleep divalproex 500 mg tablet extended release 24 hr 1,000 mg PO BEDTIME Qty: 60 5RF Rx Instructions: Take 2 tablets daily at bedtime paliperidone 1.5 mg tablet extended release 24hr See Rx Instructions PO DAILY Qty: 30 5RF Rx Instructions: Take 1 tablet once a day, if needed for psychosis/hallucinations paliperidone 6 mg tablet extended release 24hr 6 mg PO DAILY Discharge Orders: Discharge Order (Routine); Ordered 10/01/24 Ordered By: Trevor Figueroa Referrals: Patria Mckinney APRN [Nurse Practitioner, Nurse Practitioner Psych/[facility]] - 10/07/24 2:15 pm Malgorzata Santa DO [Primary Care Provider, [facility]] Discharge Diet: Usual diet Discharge Activity: Resume usual activity Patient Instructions: Trazodone (By mouth) (Desyrel, Desyrel Dividose, Oleptro, Trazamine), Aripiprazole (By mouth), Schizoaffective Disorder (GEN), Opioid Safety Discharge Attestations NPU Time Spent in Discharge Care*: less than 30 min Specific Discharge Activities: Specific discharge activities: educating patient, discussing with case supervisor/social workers/dc planners and documenting/other paperwork Status at Discharge: Cognitive status at discharge: cognitively intact, Behavioral status at discharge: cooperative, Coding Level of Care Code Acute Code for [facility] Diagnoses Schizoaffective disorder, depressive type F25.1
== END 2024-10-01 11:25 | disposition home or self-care (01) | DRG 885 ==
LOC: ER 05:32 → ER IP 07:24 → NP 14:45
PROVIDERS: Admitting Provider Psychiatry & Neurology Psychiatry; Emergency Provider Emergency Medicine; PCP Family Medicine; Visit Provider Psychiatry & Neurology Psychiatry
DX: F25.1 Schizoaffective disorder, depressive type (principal); R45.851 Suicidal ideations; Z87.891 Personal history of nicotine dependence; E03.9 Hypothyroidism, unspecified; I10 Essential (primary) hypertension; K21.9 Gastro-esophageal reflux disease without esophagitis; Z91.51 Personal history of suicidal behavior
CPT/HCPCS: 80053; 80306; 80307; 81001; 84443; 85025; 93005; 97150; 97165; 99285; J9999

== ENCOUNTER → 2024-12-25 10:04 | Outpatient (BNVA) | payer MEDICARE, OTHER, SELFPAY ==
[2023-11-22 08:34] VITALS: BP 139/96; BMI 34.1
== END ==
PROVIDERS: PCP Family Medicine; Visit Provider Nurse Practitioner Psychiatric/Mental Health
DX: Z51.81 Encounter for therapeutic drug level monitoring (principal); Z79.899 Other long term (current) drug therapy
CPT/HCPCS: 80061; 80164; 83036; 83721

== ENCOUNTER 2025-02-03 12:00 | Outpatient (CLI) | payer MEDICARE, SELFPAY ==
[2023-11-22 08:34] VITALS: BP 139/96; BMI 34.1
--- NOTE | 2025-02-03 12:13 | MR_ITS ---
WS: [id number] MRI LUMBAR SPINE NONCONTRAST TECHNIQUE: Sagittal T1, T2 and STIR imaging. Axial T1 and T2 imaging. CLINICAL INFORMATION: CHRONIC MIDLINE LOW BACK PAIN W/BILATERAL SCIATICA COMPARISON: None. FINDINGS: Mild lumbar curve. No acute compression. No high-grade central canal stenosis. Disc bulging worse at L4-5. With diffuse replacement of the normal fatty T1 marrow signal can be seen with anemias and smoking. Recommend correlation with history. L1-L2: Mild annular bulging. L2-L3: Mild annular bulging. Slight effacement of the ventral thecal sac. Mild LEFT foraminal narrowing. Mild facet arthropathy. L3-L4: Mild annular bulging with mild central canal stenosis. Impingement of the traversing L4 nerve roots bilaterally. Mild facet arthropathy. Foramen are patent. L4-L5: Mild annular bulge with mild central canal stenosis. Impingement of traversing L5 nerve roots bilaterally. Mild facet arthropathy. Mild RIGHT greater than LEFT foraminal narrowing. L5-S1: Mild annular bulging with slight effacement of the ventral thecal sac. Mild facet arthropathy. Spinal canal and foramen are patent. Visualized pelvic bony structures: Normal. Paravertebral soft tissues: Normal. MR/MR lumbar spine wo con* [id number] IMPRESSION: 1. Mild central canal stenosis L4-5 with impingement of the traversing L5 nerv e roots bilaterally. Mild RIGHT foraminal narrowing. 2. Mild central canal stenosis L3-4 with impingement on the RIGHT greater than LEFT subarticular recess. 3. Mild annular bulging L5-S1. 4. Replacement of the normal fatty T1 marrow signal can be seen with anemias a nd smoking. Recommend correlation with history.
== END 2025-02-03 12:01 | disposition home or self-care (01) ==
PROVIDERS: PCP Family Medicine; Visit Provider Nurse Practitioner Family
DX: M48.061 Spinal stenosis, lumbar region without neurogenic claudication (principal); M47.817 Spondylosis without myelopathy or radiculopathy, lumbosacral region; M54.42 Lumbago with sciatica, left side; M54.41 Lumbago with sciatica, right side
CPT/HCPCS: 72148

== ENCOUNTER 2025-02-14 21:32 | Emergency (ER) | payer OTHER, MEDICAID, SELFPAY ==
--- OUTSIDE RECORDS SUMMARY | 2018-05-03 05:32 | XMS_ITS | Continuity of Care Document ---
Author Organization [facility] Address [address] [place] [address] Phone Care Team Providers Care Composition Tile Layer Name Role Phone Edgard Rayo MD Unavailable Unavailabl e Allergies, Adverse Reactions, Alerts Substance Reaction Status Criticality CHLORPROMAZINE HCL Active No Inform ation LEVONORGESTREL-ETHINYL ESTRADIOL Active No Information Medications Medication Instructions Dosage Effective Dates (start - stop) Status Comments metoprolol tartrate 25 mg tablet take 1 by Oral route every bid 1 - Active buspirone 10 mg tablet take 1 tablet (10MG) by oral route 3 times every day 10 MG - Active Neurontin 100 mg capsule take 2 Capsule (200MG) by oral route 3 times every day 200 MG - Active Procedures Procedure Date OFFICE/OUTPATIENT VISIT EST Advance Directives Directive Yes / No Effective Date File Name No Information Encounters Encounter Description Practice Location Reason(s) For Visit Diagnoses Date Provider Providers Copied on Encounter [facility], [address], [place], [place], [address], [place] tel:[phone] [facility] No Information 9 Perri Rene . [address], [address], [place], [place], [address] , [place]. tel:[phone] OFFICE/OUTPA TIENT VISIT EST [facility], [address] [place], [place], [address], [place] tel:[phone] [facility] depression (chief complaint)a lcohol problem (chief complaint) DepressionAnxietyAl cohol abuse 2201 4 John Camacho. [address] [place], [place], [address] , . tel:[phone] Family History Family Member Type Diagnosis Age At Onset Father Problem (finding) hypertension Mother Problem (finding) hypertension Payers Payer name Insurance type Covered constitution party ID Authoriza tion(s) No Information Social History Type Description Quantity Date Captured Comments Sex Male Smoking Status No Information Chief Complaint And Reason For Visit No Information Reason For Referral Reason For Referral No Information History Of Present Illness Encounter Date Complaint History Of Prese nt Illness No Information Functional Status Date Functional Assessmen t No Information Instructions Date Instruction Additional Infor mation No Information Assessments Type Assessment Date No Information Patient Care Teams Name Effective Dates (start - stop) Status Members No Information
[2023-11-22 08:34] VITALS: BP 139/96; BMI 34.1
--- OUTSIDE RECORDS SUMMARY | 2025-02-14 21:35 | XMS_ITS | Clinical Summary ---
Author Organization [facility] Address [address] [facility] [address] [place] [address] Phone Care Team Providers Care Senior Care Assistant Name Role Phone Malgorzata Santa Primary Care Provider Allergies Active Allergy Reactions Criticality Noted Date Comments Chlorpromazine Anaphylaxis High 02/01/2021 Haloperidol Anaphylaxis High 02/01/2021 Lurasidone Anaphylaxis High 05/01/2022 Olanzapine Anaphylaxis High 02/01/2021 Medications ARIPiprazole (ABILIFY MAINTENA) 300 mg suspension,exten ded rel syring Inject 400 mg by intramuscular injection every 28 days. Received at [facility] 01/02/2025 Active levothyroxine 100 mcg tablet Take 100 mcg by mouth daily before breakfast. Active lisinopriL (PRINIVIL) 10 mg tabletIndication s:Essential hypertension Take 1 Tablet (10 mg) by mouth daily. 90 Tablet 1 07/16/19 25 Active metoprolol succinate (TOPROL XL) 25 mg Extended Release 24 hour tabletIndication s:Essential hypertension Take 1 Tablet (25 mg) by mouth daily. 90 Tablet 1 07/16/19 25 Active meloxicam (MOBIC) 15 mg tabletIndication s:Chronic midline low back pain with bilateral sciatica Take 1 Tablet (15 mg) by mouth daily. 90 Tablet 1 11/05/19 25 Active escitalopram oxalate (LEXAPRO) 20 mg tablet Take 20 mg by mouth daily. 12/25/19 25 Active ARIPiprazole (ABILIFY) 10 mg tablet Take 10 mg by mouth daily. 12/25/19 25 Active divalproex (DEPAKOTE ER) 500 mg Extended Release 24 hour tablet Take 500 mg by mouth daily. 12/25/19 25 Active hydrOXYzine pamoate (VISTARIL) 25 mg capsule Take 25 mg by mouth 3 times daily as needed for Anxiety. 11/08/19 25 Active tiZANidine (ZANAFLEX) 4 mg TabletIndication s:Chronic midline low back pain with bilateral sciatica Take 1 Tablet (4 mg) by mouth every 8 hours as needed for Spasm or Pain. 90 Tablet 11 01/08/20 25 Active Active Problems Problem Noted Date Diagnosed Date Chronic low back pain 08/16/2023 Essential hypertension 04/24/2023 Insomnia 04/24/2023 Schizoaffective disorder 05/01/2022 Encounters Date Type Department Care Team Description 02/11/2025 External Device Data [facility] ABSTRACTION Provider, Abstract 02/04/2025 Results Follow-Up [facility] [address] [place] [address] Sridevi Rowland FNP MRI LUMBAR WO CONTRAST 02/04/2025 Orders Only [facility] [address] [place] [address] Sridevi Rowland FNP Chronic midline low back pain with bilateral sciatica 01/13/2025 Abstract [facility] [address] [place] [address] Malgorzata Santa, 01/07/2025 3:40 PM CDT Office Visit [facility] [address] [place] [address] Sridevi Rowland, VAUGHN Chronic midline low back pain with bilateral sciatica (Primary Dx); Other schizoaffective disorders ([facility]/HCC); Need for influenza vaccination 12/31/2024 External Device Data [facility] ABSTRACTION Provider, Abstract 12/27/2024 Abstract [facility] [address] [place] [address] Malgorzata Santa, 12/11/2024 External Device Data [facility] ABSTRACTION Provider, Abstract 11/27/2024 External Device Data [facility] ABSTRACTION Provider, Abstract from Last 3 Months Immunizations Immunization Administration Dates Next Due INFLUENZA VACCINE TRIVALENT SPLIT VIRUS, (6 MOS UP), 0.5ML (PF), IM 01/07/2025 Social History Tobacco Use Types Packs/Day Years Used Date Smoking Tobacco: Every Day Cigarettes Smokeless Tobacco: Never Tobacco Cessation:Ready to Q uit: No; Counseling Given: Yes Alcohol Use Standard Drinks/Week Comments Not Currently 0 (1 standard drink = 0.6 oz pur e alcohol) Sex and Gender Information Value Date Recorded Sex Assigned at Not on file Legal Sex Male 5:20 PM CDT Gender Identity Not on file Sexual Orientation Not on file Last Filed Vital Signs Vital Sign Reading Time Taken Comments Blood Pressure 130/86 01/07/2025 3:38 PM CDT Pulse 82 01/07/2025 3:41 PM CDT Temperature 36.3 C (97.4 F) 01/07/2025 3:38 PM CDT Respiratory Rate 18 01/07/2025 3:38 PM CDT Oxygen Saturation 97% 01/07/2025 3:38 PM CDT Inhaled Oxygen Concentration - - Weight 93.2 kg (205 lb 6.4 oz) 01/07/2025 3:38 P M CDT Height 175.3 cm (5' 9 ) 01/07/2025 3:38 PM CDT Body Mass Index 30.33 01/07/2025 3:38 PM CDT Plan of Treatment Health Maintenance Due Date Last Done Comments HEPATITIS B VACCINES (1 of 3 - 19+ 3-dose series) 2010 HPV VACCINES (1 - 3-dose SCD M series) 2018 [place] Preventative Visit/Annual Wellness Visit 04/24/2024 DTAP/TDAP/TD VACCINES (2 - T d or Tdap) 09/15/2030 09/15/2020 COVID-19 Vaccine Completed 02/09/2024, 09/2022, 06/19/2020, Additional history exists INFLUENZA VACCINE Completed 01/07/2025, , 03/19/2023, Additional history exists Procedures Procedure Name Priority Date/Time Associated Diagnosis Comments MRI LUMBAR WO CONTRAST Routine 02/03/2025 Chronic midline low back pain with bilateral sciatica LIPID PANEL Routine 12/25/2024 HEMOGLOBIN A1C Routine 12/25/2024 from Last 3 Months Results * MRI LUMBAR WO CONTRAST (02/03/2025) Anatomical Region Laterality Modality Spine Magnetic Resonan ce us Sridevi Rowland STRUCTURAL IRON ERECTOR MR ORDERABLES Final Resu lt * HEMOGLOBIN A1C (12/25/2024) ABSTRACTED HGB A1C 5.3 % Blood 12/25/2024 us Abstract Provider CHEMISTRY ORDERABLES Final Res ult * LIPID PANEL (12/25/2024) ABSTRACTED CHOLESTEROL 215 ABSTRACTED TRIGLYCERIDE 953 ABSTRACTED HDL 27 ABSTRACTED LDL CALCULATED ABSTRACTED LDL CHOLESTEROL, DIRECT 79 Blood 12/25/2024 us Abstract Provider CHEMISTRY ORDERABLES Edited Re sult - Final from Last 3 Months Insurance [place] [address] [place] [address] DUAL COMPLETE HMO DSNP [facility] [id number] Care Teams Senior Care Assistant Relationship Specialty Start Date End Date Malgorzata Santa DO [address] [place] [address] PCP - General Family Practice 07/15/24
--- OUTSIDE RECORDS SUMMARY | 2025-02-14 21:35 | XMS_ITS | Encounter Summary ---
Author Organization [facility] Address [address] [place] [address] Care Team Providers Care Floor Hand Name Role Phone Malgorzata Santa DO Primary Care Provider [phone] Encounter Details Date Type Department Care Team (Late st Contact Info) Description 02/11/2025 External Device Data [facility] ABSTRACTION Provider, Abstract NO ADDRESS ON FILE Social History Tobacco Use Types Packs/Day Years Used Date Smoking Tobacco: Every Day Cigarettes Smokeless Tobacco: Never Alcohol Use Standard Drinks/Week Comments Not Currently 0 (1 standard drink = 0.6 oz pur e alcohol) Sex and Gender Information Value Date Recorded Sex Assigned at Not on file Legal Sex Male 5:20 PM CDT Gender Identity Not on file Sexual Orientation Not on file documented as of this encounter Plan of Treatment Not on file documented as of this encounter Visit Diagnoses Not on filedocumented in this encounter Additional Health Concerns Assessment Noted Time PHQ-9 Depression Total Score: 1 07/16/19 3:16 PM CDT documented as of this encounter Care Teams Floor Hand Relationship Specialty Start Date End Date Malgorzata Santa DO [address] [place] [address] PCP - General Family Practice 07/15/24 documented as of this encounter
--- OUTSIDE RECORDS SUMMARY | 2025-02-14 21:35 | XMS_ITS | Encounter Summary ---
Author Organization [facility] Address [address] [place] [address] Care Team Providers Care Cyber Security Architect Name Role Phone Malgorzata Santa DO Primary Care Provider Encounter Details Date Type Department Care Team (Late st Contact Info) Description 02/04/2025 Orders Only [facility] [place] [address] [place] [address] Sridevi Rowland FNP [address] [place] [address] Chronic midline low back pain with bilateral sciatica Social History Tobacco Use Types Packs/Day Years [...] on file documented as of this encounter Procedures Procedure Name Priority Date/Time Associated Diagnosis Comments MRI LUMBAR WO CONTRAST Routine 02/03/2025 Chronic midline low back pain with bilateral sciatica documented in this encounter Results * MRI LUMBAR WO CONTRAST (02/03/2025) Anatomical Region Laterality Modality Spine Magnetic Resonan ce us Sridevi MENDES MR ORDERABLES Final Resu lt documented in this encounter Visit Diagnoses Diagnosis Chronic midline low back pain with bilateral sciatica documented in this encounter Additional Health Concerns Assessment Noted Time PHQ-9 Depression Total Score: 1 07/16/19 25 3:16 PM CDT documented as of this encounter Care Teams Cyber Security Architect Relationship Specialty Start Date End Date Malgorzata Santa DO [address] [place] [id number] PCP - General Family Practice 07/15/24 documented as of this encounter
[2025-02-14 22:05] VITALS: BP 141/91; PULSE 87; RESP 14; TEMP 36.8; O2SAT 100
--- NOTE | 2025-02-15 02:27 | XRR_ITS ---
PROCEDURE INFORMATION: Exam: XR Cervical Spine Exam date and time: 02/15/2025 2:26 AM Age: 34 years old Clinical indication: PT C/O RT sided neck pain that started after waking from sleep yesterday. No injury. ; Additional info: R sided neck pain TECHNIQUE: Imaging protocol: Radiologic exam of the cervical spine. Views: 2 or 3 views. COMPARISON: CR XR shoulder LT min 2V* [id number] 10/01/2020 8:58 PM FINDINGS: Limitations: The cervical spine is visualized from skull base to C5 on the lateral view. Bones/joints: Normal. No acute fracture. Normal alignment. Soft tissues: Unremarkable. XR/XR cervical spine 3V* [id number] IMPRESSION: No acute findings.
[2025-02-15 02:39] VITALS: RESP 18
[2025-02-15] MEDS: oxyCODONE-APAP 5-325 mg Tablet 2 TAB PO (02:39)
[2025-02-15 02:42] VITALS: BP 166/108; PULSE 89; RESP 18; O2SAT 96
[2025-02-15 03:41] VITALS: BP 146/103; PULSE 89; O2SAT 93
--- NOTE | 2025-02-15 03:43 | ED_ITS ---
HPI - Neck Pain/Injury General: Chief Complaint: Neck Pain/Injury Stated Complaint: NECK PAIN Time Seen by Provider: 02/15/25 01:54 History of Present Illness: Patient is a 34-year-old male who presents with neck pain that began yesterday morning. He reports waking up with pain primarily located at the base of his neck on the right side. The patient denies any preceding trauma or injury. He describes the area as tender to touch. The patient has attempted to treat the pain with Tylenol but reports minimal relief. He notes slight improvement today compared to yesterday, but states it is not much better. The pain is exacerbated by head movement, particularly when turning his head to the left or right, though he describes this pain as not real bad. He denies any radiation of pain down his arms. Related Data Home Medications ?Medication ?Instructions ?Recorded ?Confirmed acetaminophen 500 mg tablet 1,000 mg PO Q6H PRN Pain 0 08/03/20 01/23/25 (Tylenol Extra Strength) metoprolol succinate 25 mg 25 mg PO DAILY 12/15/2006/18 tablet,extended release 24 hr omeprazole 20 mg capsule,delayed 20 mg PO DAILY@16 11/1201/23/25 release levothyroxine 100 mcg tablet 100 mcg PO DAILY 11/17/22 01/23/25 (Levoxyl) lisinopril 10 mg tablet 10 mg PO DAILY 11/17/2206/18 meloxicam 7.5 mg tablet 15 mg PO DAILY 11/11/2406/18 Previous Rx's ?Medication ?Instructions ?Recorded trazodone 100 mg tablet 100 mg PO BEDTIME Insomnia 3 0 days 10/01/24 #30 tabs aripiprazole 400 mg intramuscular 400 mg IM Q28D #1 ea 11/07/24 suspension,extended release ([facility] J [facility]) hydroxyzine pamoate 25 mg capsule 25 mg PO BID Anxiety #60 caps 11/07/24 aripiprazole 10 mg tablet 10 mg PO .q am #30 tabs 06/18 divalproex 500 mg tablet,extended 1,000 mg (2 x 500 mg ) PO .AM 30 12/24/24 release 24 hr days #60 tabs escitalopram oxalate 20 mg tablet 20 mg PO DAILY 30 da ys #30 tabs 12/24/24 diclofenac sodium 50 mg 50 mg PO TID PRN pain #10 ta bs 02/15/25 tablet,delayed release methocarbamol 750 mg tablet 750 mg PO TID #10 tabs Allergies Allergy/AdvReac Type Severity Reaction Status Date / Time chlorpromazine Allergy Severe ALGY-Anaphy Verified 02/14/25 22:10 laxis haloperidol (From Haldol) Allergy Severe ALGY-Swell Verified 02/14/25 22:10 Lip/Tongue/Throat lurasidone (From Latuda) Allergy Severe ALGY-Swell Verified 02/14/25 22:10 Lip/Tongue/Throat olanzapine (From Zyprexa) Allergy Severe ALGY-Swell Verified 02/14/25 22:10 Lip/Tongue/Throat PFSH ED PFSH: Medical History (Updated 02/15/25 @ 03:30 by Noel Winters DO) Cannabis dependence Psychiatric care Schizoaffective disorder, depressive type Depressive disorder Hallucination Family History Other Diabetes Hypertension Schizoaffective disorder, depressive type Social History Smoking and tobacco/nicotine status: former use of tobacco/nicotine Quit status (tobacco/nicotine): has quit using Year quit tobacco: 150 days? Second hand smoke exposure: Yes Alcohol intake: never Substance/Drug Use: never Adopted: No Caregiver/support person: Yes (sets up his medication) Lives independently: No (Staying at [facility]) Household members: other Details: Multiple other residents at the facility. Housing: Assisted Living Facility Marital status: Single Number of children: 0 Number of grandchildren: 0 Highest education level completed: High School Graduate service: No Current occupational status: disabled Current occupational exposures/hazards: No Pets and animals: Yes Pets & animals: cat(s) Leisure activites: exercise, music, games and other Leisure activities details: watch TV Sexually active: Yes How many partners: 1 Are you practicing safe sex: No Do you think of yourself as: Straight/Heterosexual Current gender identity: Male Paola/Jain: Shinto Special paola needs: No Agree to transfusion: Yes Physical Exam Const: COMMON NORMALS: no acute distress GENERAL APPEARANCE: cooperative; not ill appearing and not frail appearing HENMT: COMMON NORMALS: normocephalic, atraumatic and Normal external nose present HEAD & SCALP: normocephalic and atraumatic FACE & SINUS: normal facial exam and face symmetric NOSE: Normal external nose present Eye: COMMON NORMALS: Equal, round and reactive pupils present and EOMs intact bilaterally PUPIL: Yes Equal, round and reactive pupils present Neck/C-Spine: GENERAL: Yes trachea midline OTHER: Exam of the cervical spine reveals no midline tenderness. There is no step-off deformity. There is tenderness to the mid trapezius on the right with reproduction of his symptoms. Spurling's test was negative. Minimal spasm of the trapezius. Chest: CHEST: Yes Symmetrical chest wall rise Resp: COMMON NORMALS: normal respiratory effort, No retractions, No use of accessory muscles and clear to auscultation bilaterally AUSCULTATION: clear to auscultation bilaterally Cardio: COMMON NORMALS: regular rate and regular rhythm RATE: regular rate RHYTHM: regular rhythm GI: COMMON NORMALS: Normal to inspection, nondistended, normoactive bowel sounds present Extremity: COMMON NORMALS: no pedal edema Neuro: TRISHA COMA SCALE: document GCS findings Trisha coma scale eye opening: Spontaneous [place] coma scale verbal response: Orientated Trisha coma scale motor response: Obey commands [place] coma scale total score: 15 SENSORY EXAM: Yes extremities (intact) Psych: COMMON NORMALS: speech normal SPEECH: Yes normal speech Skin: COMMON NORMALS: no rashes or lesions noted GENERAL SKIN EXAM: no rashes or lesions noted Course Vital Signs: Vital signs: Vital Signs Temperature 98.3 F 02/14/25 22:05 Pulse Rate 89 02/15/25 03:41 Respiratory Rate 18 02/15/25 02:42 Blood Pressure 146/103 02/15/25 03:41 Pulse Oximetry 93 02/15/25 03:41 MDM - Neck Pain/Injury Medical Decision Making Improved after Toradol and Percocet here. He will be discharged on diclofenac and Robaxin. PCP follow-up. Return for new or worsening symptoms. Strays are negative for acute findings. XR interpretation done by ED provider, pending radiology final review Discharge Plan Discharge Patient Disposition: Home Clinical Impression: Strain of neck muscle Condition: Stable Prescriptions: New methocarbamol 750 mg tablet 750 mg PO TID Qty: 10 0RF diclofenac sodium 50 mg tablet,delayed release (DR/EC) 50 mg PO TID PRN (Reason: pain) Qty: 10 0RF No Action acetaminophen [Tylenol Extra Strength] 500 mg tablet 1,000 mg PO Q6H PRN (Reason: Pain) hydroxyzine pamoate 25 mg capsule 25 mg PO BID Qty: 60 5RF Rx Instructions: Take 1 capsule twice daily, morning and night Abilify Maintena 400 mg suspension,extended rel recon 400 mg IM Q28D Qty: 1 5RF Rx Instructions: Administer one IM injection (400 mg) every 28 to 30 days aripiprazole 10 mg tablet 10 mg PO .q am Qty: 30 3RF Rx Instructions: Take one tablet by mouth every morning divalproex 500 mg tablet extended release 24 hr 1,000 mg PO .AM 30 Days Qty: 60 3RF Rx Instructions: Take two tablets by mouth every morning escitalopram oxalate 20 mg tablet 20 mg PO DAILY 30 Days Qty: 30 3RF Rx Instructions: Take one tablet by mouth once daily metoprolol succinate 25 mg tablet extended release 24 hr 25 mg PO DAILY levothyroxine [Levoxyl] 100 mcg tablet 100 mcg PO DAILY lisinopril 10 mg tablet 10 mg PO DAILY trazodone 100 mg tablet 100 mg PO BEDTIME 30 Days Qty: 30 1RF meloxicam 7.5 mg tablet 15 mg PO DAILY omeprazole 20 mg Capsule,Delayed Release(Dr/Ec) 20 mg PO DAILY@16 Discharge Orders: Discharge ED (Routine); Ordered 02/15/25 Ordered By: Noel Winters Referrals: Malgorzata Santa DO [Primary Care Provider, Family Practice] - 1-3 days Patient Instructions: Acute Neck Pain (ED), Opioid Safety, Pain Management, Patient Portal & Bennie Instructions Activity Restrictions/Additional Instructions: Return for worsening pain, weakness of the upper extremity, significant numbness or tingling, fever, any other concerns. Call your doctor Monday morning for a follow-up appointment. Medication as directed. Print Language: Setswana Coding Level of Care Code ED Hot Top Liner for Keny Ying
== END 2025-02-15 03:42 | disposition home or self-care (01) ==
PROVIDERS: Emergency Provider Emergency Medicine; PCP Family Medicine
DX: S16.1XXA Strain of muscle, fascia and tendon at neck level, initial encounter (principal); Z87.891 Personal history of nicotine dependence; X58.XXXA Exposure to other specified factors, initial encounter
CPT/HCPCS: 72040; 96372; 99284; J1885; J9999

== ENCOUNTER 2025-04-04 23:19 | Emergency (ER) | payer MEDICARE, MEDICAID, SELFPAY ==
--- OUTSIDE RECORDS SUMMARY | 2018-05-03 04:32 | XMS_ITS | Continuity of Care Document ---
Author Organization [facility] Address [address] [place] [address] Phone Care Team Providers Care Remote Coders Name Role Phone Perri ALLEN, Edgard Unavailable Unavailabl e Allergies, Adverse Reactions, Alerts Substance Reaction Status Criticality CHLORPROMAZINE HCL Active No Inform ation LEVONORGESTREL-ETHINYL ESTRADIOL Active No Information Medications Medication Instructions Dosage Dose Quantity Effective Dates (start - stop) Status Indication Fill Status Comments metoprolol tartrate 25 mg tablet take 1 by Oral route every bid 4 - Active buspirone 10 mg tablet take 1 tablet (10MG) by oral route 3 times every day 10 MG 1 tablet 4 - Active Neurontin 100 mg capsule take 2 Capsule (200MG) by oral route 3 times every day 200 MG 2 Capsule 4 - Active Advance Directives Directive Yes / No Effective Date File Name No Information Encounters Encounter Description Practice Location Reason(s) For Visit Diagnoses Date Provider Encounter Disposition [facility], [address], [place], [place], [id number], [place] tel:[phone] [facility] No Information 9 Perri Rene . [address], [address], [place], [place], [address] , [place]. tel:[phone] [facility], [address], [place], [address], [place] tel:[phone] [facility] depression (chief complaint)a lcohol problem (chief complaint) DepressionAnxiety Alcohol abuse Jul-2 2-201 4 John Camacho. [address] [place], [id number] , [place]. tel:[phone] Family History Family Member Type Diagnosis Age At Onset Father Problem (finding) hypertension Mother Problem (finding) hypertension Payers Payer name Insurance type Identifiers Authorization(s) Com ments No Information Social History Type Description Quantity Date Captured Comments Sex Male Smoking Status No Information Current Gender Male (finding) Chief Complaint And Reason For Visit No Information History Of Present Illness Encounter Date Complaint History Of Prese nt Illness No Information Functional Status Date Description Comments No Information Instructions Date Instruction Additional Infor mation No Information Assessments Type Assessment Date No Information
[2023-11-22 08:34] VITALS: BP 139/96; BMI 34.1
--- OUTSIDE RECORDS SUMMARY | 2025-04-04 23:29 | XMS_ITS | Clinical Summary ---
Author Organization [facility] Address [address] [address] Phone Care Team Providers Care Academy Director Name Role Phone System, Provider Not In DO Primary Care Provider Allergies Active Allergy Reactions Criticality Noted Date Comments Chlorpromazine Anaphylaxis High 02/01/2021 Haloperidol Anaphylaxis High 02/01/2021 Lurasidone Anaphylaxis High 05/01/2022 Olanzapine Anaphylaxis High 02/01/2021 Medications levothyroxine (Synthroid, Levoxyl) 100 mcg tabletIndicatio ns:hypothyroidi sm Take 100 mcg by mouth 1 (one) time each day before breakfast. Active lisinopriL (Prinivil, Zestril) 10 mg tabletIndicatio ns:hypertension Take 10 mg by mouth 1 (one) time each day. Active metoprolol succinate XL (Toprol-XL) 25 mg 24 hr tabletIndicatio ns:hypertension Take 25 mg by mouth 1 (one) time each day. Do not crush or chew. Active ARIPiprazole (Abilify) 300 mg injection syringeIndicati ons:schizophren ia Inject 400 mg into the shoulder, thigh, or buttocks 1 (one) time. Active ibuprofen (Advil,Motrin) 800 mg tabletIndicatio ns:fever,pain Take 800 mg by mouth every 8 (eight) hours if needed for mild pain (1-3). Active divalproex (Depakote ER) 500 mg 24 hr tabletIndicatio ns:bipolar disorder in remission,mood Take 2 tablets (1,000 mg total) by mouth every night. Do not crush, chew, or split. 60 tablet 2024 Active escitalopram (Lexapro) 20 mg tabletIndicatio ns:anxiety with depression Take 1 tablet (20 mg total) by mouth 1 (one) time each day. 30 tablet 2024 Active hydrOXYzine pamoate (Vistaril) 25 mg capsuleIndicati ons:anxiety Take 1 capsule (25 mg total) by mouth every 6 (six) hours if needed for anxiety. 120 capsule 2024 Active traZODone (Desyrel) 50 mg tabletIndicatio ns:insomnia associated with depression Take 1 tablet (50 mg total) by mouth at night if needed for sleep. 30 tablet 2024 Active ziprasidone (Geodon) 20 mg capsuleIndicati ons:bipolar disorder Take 1 capsule (20 mg total) by mouth 2 (two) times a day with meals. 60 capsule 2024 Active Active Problems Problem Noted Date Diagnosed Date Schizoaffective disorder 05/01/2022 Resolved Problems Problem Noted Date Diagnosed Date Resolved Date Schizophrenia 02/01/2021 05/06/2022 Immunizations Immunization Administration Dates Next Due Hepatitis A 09/15/2020,03/05/2018 INFLUENZA, MDCK, TRIVALENT, PRESERVATIVE 024 Influenza Split Preservative Free ID 02/22/2013, 01/10/2012 Influenza, Quadrivalent, PF (IIV4) 03/19/2023,,03/12/2014 Influenza, Quadrivalent, PF, MDCK 02/18/2022 Influenza, Unspecified 02/13/2018 Tdap 09/15/2020 Social History Tobacco Use Types Packs/Day Years Used Date Smoking Tobacco: Former Smokeless Tobacco: Current Tobacco Cessation:Ready to Q uit: Not Asked; Counseling Given: Not Answered Comments:Vapes Alcohol Use Standard Drinks/Week Comments Not Currently 0 (1 standard drink = 0.6 oz pur e alcohol) [facility] Utilities Answer Date Recorded In the past 12 months has e [employer], gas, oil, or water [employer] threatened to shut off services in your home? No 06/17/2024 Humiliation, Afraid, Rape, and Kick questionnair e Answer Date Recorded Within the last year, have y ou been afraid of your partner or ex-partner? No 06/17/2024 Within the last year, have y ou been humiliated or emotionally abused in other ways by your partner or ex-partner? No Within the last year, have y ou been kicked, hit, slapped, or otherwise physically hurt by your partner or ex-partner? No 06/17/2024 Within the last year, have y ou been raped or forced to have any kind of sexual activity by your partner or ex-partner? No 06/17/2024 Overall Financial Resource Strain (CARDIA) Answe r Date Recorded How hard is it for you to pa y for the very basics like food, housing, medical care, and heating? Not hard at all 06/17/2024 Hunger Vital Sign Answer Date Recorded Within the past 12 months, y ou worried that your food would run out before you got the money to buy more. Never true 06/17/19 25 Within the past 12 months, t he food you bought just didn't last and you didn't have money to get more. Never true 06/17/2024 PRAPARE - Transportation Answer Date Re corded In the past 12 months, has l ack of transportation kept you from medical appointments or from getting medications? No 05/26 In the past 12 months, has l ack of transportation kept you from meetings, work, or from getting things needed for daily living? No 06/17/2024 Housing Stability Vital Sign Answer Keith e Recorded In the last 12 months, was t here a time when you were not able to pay the mortgage or rent on time? No 06/17/2024 In the past 12 months, how m any times have you moved where you were living? 0 06/17/2024 At any time in the past 12 m [facility], were you homeless or living in a intermediate (including now)? No 06/17/2024 Sex and Gender Information Value Date Recorded Sex Assigned at Male 05/01/2022 9:56 AM WATERWORKS SUPERVISOR Legal Sex Male 6:21 AM CDT Gender Identity Male 05/01/2022 9:56 AM WATERWORKS SUPERVISOR Sexual Orientation Not on file Last Filed Vital Signs Vital Sign Reading Time Taken Comments Blood Pressure 120/73 2024 4:30 PM WATERWORKS SUPERVISOR Pulse 86 2024 4:30 PM WATERWORKS SUPERVISOR Temperature 36.3 C (97.3 F) 2024 4:30 PM WATERWORKS SUPERVISOR Respiratory Rate 18 2024 4:30 PM WATERWORKS SUPERVISOR Oxygen Saturation 97% 2024 4:30 PM WATERWORKS SUPERVISOR Inhaled Oxygen Concentration - - Weight 99.2 kg (218 lb 12.8 oz) 06/17/2024 3:58 PM WATERWORKS SUPERVISOR Height 175.3 cm (5' 9 ) 06/17/2024 3:58 PM WATERWORKS SUPERVISOR Body Mass Index 32.31 06/17/2024 3:58 PM WATERWORKS SUPERVISOR Plan of Treatment Health Maintenance Due Date Last Done Comments Creatinine Level 1991 Lipid Panel 1991 Potassium Level 1991 MMR Vaccines (1 of 1 - Standard series) 1992 Varicella Vaccines (1 of 2 - 13+ 2-dose series) 2004 Depression Screening 2009 Social Drivers of Health (SDoH) 2009 Hepatitis B Vaccines (1 of 3 - 19+ 3-dose series) 2010 Pneumococcal Vaccines (1 of 2 - PCV) 2010 HPV Vaccines (1 - 3-dose SCDM series) 2018 DTaP,Tdap,and Td Vaccines (2 - Td or Tdap) 10/13/2020 09/15/2020 Medicare Initial AWV [id number] 05/25/2021 COVID-19 Vaccines (2 - 2024- season) 2024 02/09/2024 Influenza Vaccine (#1) 2024 4, 03/19/2023, 02/18/2022, Additional history exists Zoster Vaccines (1 of 2) 2041 RSV Vaccines (1 - 1-dose 75+ series) 2066 Hepatitis A Vaccines Aged Out 09/15/2020, 03/05/20 18 No longer eligible based on patient's age to complete this topic HIB Vaccines Aged Out No longer eligi ble based on patient's age to complete this topic IPV Vaccines Aged Out No longer eligi ble based on patient's age to complete this topic Meningococcal B Vaccine Aged Out No l onger eligible based on patient's age to complete this topic Meningococcal Vaccine Aged Out No gianna liam eligible based on patient's age to complete this topic Rotavirus Vaccines Aged Out No longer eligible based on patient's age to complete this topic Interventions Community Resource Recommendations Community Resource Services Recommended Domains Addressed Status Status Reason/Outcome Date/Time MEDICAID TRANSPORTATION - Community Resource Program Transportation to Medical Appointments Financial Resource Strain, Medical Cost [place], Transportation Needs In Use 06/17/2024 4:08 PM WATERWORKS SUPERVISOR [facility] - Community Resource Program Preventive Care Medical Cost [place] In Use 06/17/2024 4:07 PM WATERWORKS SUPERVISOR from Last 12 Months Insurance [employer] MEDICARE Advance Directives For more information, please contact: [phone] (7:30 AM - 5PM [facility], 7 days a week) * Full Code (Latest Code Status on File) Date Activated Date Inactivated Comments 06/17/2024 3:35 PM 2024 8:09 PM * Full Code Date Activated Date Inactivated Comments 05/01/2022 9:39 AM 05/06/2022 3:59 PM * Full Code Date Activated Date Inactivated Comments 02/01/2021 12:23 PM 02/08/2021 3:57 PM Care Teams Academy Director Relationship Specialty Start Date End Date System, Provider Not In, DO [address] [id number] PCP - General 02/01/21
--- OUTSIDE RECORDS SUMMARY | 2025-04-04 23:29 | XMS_ITS | Clinical Summary ---
Author Organization [facility] Address [address] [place] [address] Phone Care Team Providers Care Reading Aide Name Role Phone ArinaMalgorzata Primary Care Provider Allergies Active Allergy Reactions Criticality Noted Date Comments Chlorpromazine Anaphylaxis High 02/01/2021 Haloperidol Anaphylaxis High 02/01/2021 Lurasidone Anaphylaxis High 05/01/2022 Olanzapine Anaphylaxis High 02/01/2021 Medications ARIPiprazole (ABILIFY MAINTENA) 300 mg suspension,exten ded rel syring Inject 400 mg by intramuscular injection every 28 days. Received at [facility] 01/02/2025 Active levothyroxine 100 mcg tablet Take [...] Active Problems Problem Noted Date Diagnosed Date Spinal stenosis of lumbar region 03/05/2025 Chronic low back pain 08/16/2023 Essential hypertension 04/24/2023 Insomnia 04/24/2023 Schizoaffective disorder 05/01/2022 Encounters Date Type Department Care Team Description 03/05/2025 2:20 PM MANAGER LANGUAGE Office Visit [facility] [address] [place] [address] Sridevi Rowland FNP Spinal stenosis of lumbar region, unspecified whether neurogenic claudication present (Primary Dx); Chronic midline low back pain with bilateral sciatica; Schizoaffective disorder, unspecified type ([facility]) 03/03/2025 Telephone [facility] [address] [place] [address] Malgorzata Santa, Paperwork 02/19/2025 External Device Data STL ABSTRACTION Provider, Abstract 02/19/2025 External Device Data STL ABSTRACTION Provider, Abstract 02/11/2025 External Device Data STL ABSTRACTION Provider, Abstract 02/04/2025 Results Follow-Up [facility] [address] [place] [facility] [place] [address] Sridevi Rowland FNP MRI LUMBAR WO CONTRAST 02/04/2025 Orders Only [facility] [address] [facility] [phone] Sridevi Rowland FNP Chronic midline low back pain with bilateral sciatica 01/13/2025 Abstract [facility] [address] [place] [facility] [place] [address] Malgorzata Santa DO 01/07/2025 3:40 PM CDT Office Visit [facility] [address] [place] [facility] [place] [phone] Sridevi Rowland, VAUGHN Chronic midline low back pain with bilateral sciatica (Primary Dx); Other schizoaffective disorders (CMS/HCC); Need for influenza vaccination from Last 3 Months Immunizations Immunization Administration [...] Sign Reading Time Taken Comments Blood Pressure 136/78 03/05/2025 2:33 PM MANAGER LANGUAGE Pulse 94 03/05/2025 2:33 PM MANAGER LANGUAGE Temperature 36.6 C (97.9 F) 03/05/2025 2:33 PM MANAGER LANGUAGE Respiratory Rate 18 03/05/2025 2:33 PM MANAGER LANGUAGE Oxygen Saturation 96% 03/05/2025 2:33 PM MANAGER LANGUAGE Inhaled Oxygen Concentration - - Weight 92.8 kg (204 lb 9.6 oz) 03/05/2025 2:33 P M MANAGER LANGUAGE Height 175.3 cm (5' 9 ) 03/05/2025 2:33 PM MANAGER LANGUAGE Body Mass Index 30.21 03/05/2025 2:33 PM MANAGER LANGUAGE Plan of Treatment Health Maintenance Due Date Last Done Comments HEPATITIS B VACCINES (1 of 3 - 19+ 3-dose series) 2010 [place] Preventative Visit/Annual Wellness Visit 04/24/2024 COVID-19 Vaccine (5 - 2024-2 6 season) 2024 02/09/2024, 04/29/2022, 06/19/2020, Additional history exists DTAP/TDAP/TD VACCINES (2 - T d or Tdap) 09/15/2030 09/15/2020 INFLUENZA VACCINE Completed 01/07/2025, , 03/19/2023, Additional history exists HPV VACCINES (No Doses Required) Completed Procedures Procedure Name Priority Date/Time Associated Diagnosis Comments MRI LUMBAR WO CONTRAST Routine 02/03/2025 Chronic midline low back pain with bilateral sciatica from Last 3 Months Results * MRI LUMBAR WO CONTRAST (02/03/2025) Anatomical Region Laterality Modality Spine Magnetic Resonan ce us Francischiarairving Rowland VISUAL DESIGNER MR ORDERABLES Final Resu lt from Last 3 Months Insurance MEDICAID [place] [employer] [facility] [id number] Care Teams Reading Aide Relationship Specialty Start Date End Date Malgorzata Santa DO [address] [place] [id number] PCP - General Family Practice 07/15/24
[2025-04-04 23:33] VITALS: BP 153/96; PULSE 101; RESP 20; TEMP 36.6; O2SAT 96; BMI 30.8
--- NOTE | 2025-04-04 23:53 | W.ED.BACK ---
HPI - Back Pain/Injury General: Chief Complaint: Back Pain/Injury Stated Complaint: low back pain Time Seen by Provider: 04/04/25 23:32 History of Present Illness: Patient is a pleasant 34-year-old gentleman with history of spinal stenosis, presents to the ED without injury, with complaints of lumbar back pain. This has been worsening over the course the day. He does not remember any injury, denies any injury, and just feels like it was pulled somehow. No fevers. No sensation changes. No groin numbness, tingling Associated symptoms: Deny abdominal pain, chills, fever(s), nausea or vomiting Related Data Home Medications ?Medication ?Instructions ?Recorded ?Confirmed acetaminophen 500 mg tablet 1,000 mg PO Q6H PRN Pain 08/03/20 02/24/25 (Tylenol Extra Strength) metoprolol succinate 25 mg 25 mg PO DAILY 12/15/20 02/24/25 tablet,extended release 24 hr omeprazole 20 mg capsule,delayed 20 mg PO DAILY@16 09/28/21 02/24/25 release levothyroxine 100 mcg tablet 100 mcg PO DAILY 11/17/22 02/24/25 (Levoxyl) lisinopril 10 mg tablet 10 mg PO DAILY 11/17/22 02/24/25 meloxicam 7.5 mg tablet 15 mg PO DAILY 11/11/24 02/24/25 Previous Rx's ?Medication ?Instructions ?Recorded trazodone 100 mg tablet 100 mg PO BEDTIME Insomnia 30 days 10/01/24 #30 tabs hydroxyzine pamoate 25 mg capsule 25 mg PO BID Anxiety #60 caps 11/07/24 aripiprazole 10 mg tablet 10 mg PO .q am #30 tabs 12/24/24 divalproex 500 mg tablet,extended 1,000 mg (2 x 500 mg) PO .AM 30 12/24/24 release 24 hr days #60 tabs escitalopram oxalate 20 mg tablet 20 mg PO DAILY 30 days #30 tabs 12/24/24 diclofenac sodium 50 mg 50 mg PO TID PRN pain #10 tabs 02/15/25 tablet,delayed release methocarbamol 750 mg tablet 750 mg PO TID #10 tabs 02/15/25 aripiprazole 400 mg intramuscular 400 mg IM Q28D #1 ea 04/03/25 suspension,extended release (Abilify Maintena) diclofenac sodium 75 mg 75 mg PO BID PRN pain #30 tabs 04/04/25 tablet,delayed release methocarbamol 750 mg tablet 750 mg PO Q8H PRN muscle spasm #30 04/04/25 tabs methylprednisolone 4 mg tablets in See Rx Instructions PO .COMPLEX 04/04/25 a dose pack (Medrol (Mino)) #21 ea Allergies Allergy/AdvReac Type Severity Reaction Status Date / Time chlorpromazine Allergy Severe ALGY-Anaphy Verified 04/04/25 23:39 laxis haloperidol (From Haldol) Allergy Severe ALGY-Swell Verified 04/04/25 23:39 Lip/Tongue/Throat lurasidone (From Latuda) Allergy Severe ALGY-Swell Verified 04/04/25 23:39 Lip/Tongue/Throat olanzapine (From Zyprexa) Allergy Severe ALGY-Swell Verified 04/04/25 23:39 Lip/Tongue/Throat Review of Systems General: Reports: 10 or more systems reviewed and unremarkable except in HPI and below Const: Denies: fever(s) or chills Card: Denies: chest pain Resp: Denies: dyspnea or productive cough GI: Denies: abdominal pain, nausea, vomiting or diarrhea : Denies: flank pain Musc: Reports: back pain; Denies: neck pain, extremity pain, extremity swelling, joint pain, joint swelling, joint redness, joint warmth, limited range of motion or muscle weakness Skin/Breast: Denies: rash Neuro: Denies: headache(s), numbness in extremities or weakness in extremities PFSH ED PFSH: Medical History (Updated 04/04/25 @ 23:54 by ALLY Interiano) Cannabis dependence Psychiatric care Schizoaffective disorder, depressive type Depressive disorder Hallucination Family History Other Diabetes Hypertension Schizoaffective disorder, depressive type Social History Smoking and tobacco/nicotine status: former use of tobacco/nicotine Quit status (tobacco/nicotine): has quit using Year quit tobacco: 150 days? Second hand smoke exposure: Yes Alcohol intake: never Substance/Drug Use: never Adopted: No Caregiver/support person: Yes (sets up his medication) Lives independently: No ([facility] Household members: other Details: Multiple other residents at the facility. Housing: Assisted Living Facility Marital status: Single Number of children: 0 Number of grandchildren: 0 Highest education level completed: High School Graduate service: No Current occupational status: disabled Current occupational exposures/hazards: No Pets and animals: Yes Pets & animals: cat(s) Leisure activites: exercise, music, games and other Leisure activities details: watch TV Sexually active: Yes How many partners: 1 Are you practicing safe sex: No Do you think of yourself as: Straight/Heterosexual Current gender identity: Male Apola/Buddhism: Amish Special paola needs: No Agree to transfusion: Yes Physical Exam Const: COMMON NORMALS: no acute distress GENERAL APPEARANCE: cooperative; not ill appearing and not frail appearing HENMT: COMMON NORMALS: normocephalic, atraumatic and Normal external nose present HEAD & SCALP: normocephalic and atraumatic FACE & SINUS: normal facial exam and face symmetric NOSE: Normal external nose present Eye: COMMON NORMALS: Equal, round and reactive pupils present and EOMs intact bilaterally PUPIL: Yes Equal, round and reactive pupils present Neck/C-Spine: GENERAL: Yes trachea midline OTHER: Exam of the cervical spine reveals no midline tenderness. There is no step-off deformity. There is tenderness to the mid trapezius on the right with reproduction of his symptoms. Spurling's test was negative. Minimal spasm of the trapezius. Chest: CHEST: Yes Symmetrical chest wall rise Resp: COMMON NORMALS: normal respiratory effort, No retractions, No use of accessory muscles and clear to auscultation bilaterally AUSCULTATION: clear to auscultation bilaterally Cardio: COMMON NORMALS: regular rate and regular rhythm RATE: regular rate RHYTHM: regular rhythm GI: COMMON NORMALS: Normal to inspection, nondistended, normoactive bowel sounds present : COMMON NORMALS: Yes no CVA tenderness BLADDER/KIDNEY EXAM: Yes no CVA tenderness Back/Pelvis: COMMON NORMALS: no CVA tenderness and thoracic and lumbar spine normal to inspection LUMBAR SPINE/LOWER BACK: Yes paraspinal muscle tenderness Lumbar paraspinal muscle tenderness: left left lumbar paraspinal muscle tenderness: L2 and L3 Extremity: COMMON NORMALS: no pedal edema Neuro: TRISHA COMA SCALE: document GCS findings [place] coma scale eye opening: Spontaneous [place] coma scale verbal response: Orientated Trisha coma scale motor response: Obey commands Trisha coma scale total score: 15 SENSORY EXAM: Yes extremities (intact) Psych: COMMON NORMALS: speech normal SPEECH: Yes normal speech Skin: COMMON NORMALS: no rashes or lesions noted GENERAL SKIN EXAM: no rashes or lesions noted Course Vital Signs: Vital signs: Vital Signs Temperature 97.8 F 04/04/25 23:33 Pulse Rate 101 H 04/04/25 23:33 Respiratory Rate 20 H 04/04/25 23:33 Blood Pressure 153/96 04/04/25 23:33 Pulse Oximetry 96 04/04/25 23:33 MDM - Back Pain/Injury Medical Decision Making Patient is a 34-year-old male presents with paraspinous muscle spasming on L2-L3. There is no midline tenderness. This to be treated with anti-inflammatories, steroid, and muscle relaxers. Explained all of the above to patient and states understanding Medical Records I reviewed the patient's medical records. No radiology studies performed this visit Discharge Plan Discharge Patient Disposition: Home Clinical Impression: Lumbar paraspinal muscle spasm Condition: Stable Prescriptions: New methocarbamol 750 mg tablet 750 mg PO Q8H PRN (Reason: muscle spasm) Qty: 30 0RF diclofenac sodium 75 mg tablet,delayed release (DR/EC) 75 mg PO BID PRN (Reason: pain) Qty: 30 0RF methylprednisolone [Medrol (Mino)] 4 mg tablets,dose pack See Rx Instructions .ROUTE .COMPLEX Qty: 21 0RF Rx Instructions: for 6 days No Action acetaminophen [Tylenol Extra Strength] 500 mg tablet 1,000 mg PO Q6H PRN (Reason: Pain) hydroxyzine pamoate 25 mg capsule 25 mg PO BID Qty: 60 5RF Rx Instructions: Take 1 capsule twice daily, morning and night aripiprazole 10 mg tablet 10 mg PO .q am Qty: 30 3RF Rx Instructions: Take one tablet by mouth every morning divalproex 500 mg tablet extended release 24 hr 1,000 mg PO .AM 30 Days Qty: 60 3RF Rx Instructions: Take two tablets by mouth every morning escitalopram oxalate 20 mg tablet 20 mg PO DAILY 30 Days Qty: 30 3RF Rx Instructions: Take one tablet by mouth once daily Abilify Maintena 400 mg suspension,extended rel recon 400 mg IM Q28D Qty: 1 5RF Rx Instructions: Administer one IM injection (400 mg) every 28 to 30 days metoprolol succinate 25 mg tablet extended release 24 hr 25 mg PO DAILY levothyroxine [Levoxyl] 100 mcg tablet 100 mcg PO DAILY lisinopril 10 mg tablet 10 mg PO DAILY trazodone 100 mg tablet 100 mg PO BEDTIME 30 Days Qty: 30 1RF meloxicam 7.5 mg tablet 15 mg PO DAILY omeprazole 20 mg Capsule,Delayed Release(Dr/Ec) 20 mg PO DAILY@16 methocarbamol 750 mg tablet 750 mg PO TID Qty: 10 0RF diclofenac sodium 50 mg tablet,delayed release (DR/EC) 50 mg PO TID PRN (Reason: pain) Qty: 10 0RF Discharge Orders: Discharge ED (Routine); Ordered 04/04/25 Ordered By: Radha Zuniga Referrals: Malgorzata Santa DO [Primary Care Provider, Family Practice] Discharge Diet: Usual diet Discharge Activity: Limit activity as instructed Patient Instructions: Muscle Spasm (ED), Back Pain (ED), Lower Back Exercises (ED), Patient Portal & Bennie Instructions Activity Restrictions/Additional Instructions: - At the pharmacy: Robaxin/methocarbamol a powerful muscle relaxer, diclofenac a powerful anti-inflammatory/pain medication, Medrol Dosepak, steroid/inflammatory changes. Use as directed. - Return to ED if you have any numbness in the groin, incontinence, fever greater than 100.4 ?F Thank you for choosing [facility] for your healthcare needs today. You have been screened and evaluated and felt safe for discharge. Health conditions do change or evolve sometimes and as such it is important that you follow up with your Primary Doctor to be re checked, 3-5 days is a general good time frame for follow up. You are always welcome to return to the ED for re assessment if your symptoms are worsening or you have new concerns Print Language: Bulgarian Coding Level of Care Code ED Radiographic Technologist for Keny Ying
== END 2025-04-05 00:33 | disposition home or self-care (01) ==
PROVIDERS: Emergency Provider Physician Assistant; PCP Family Medicine
DX: M62.830 Muscle spasm of back (principal); Z87.891 Personal history of nicotine dependence
CPT/HCPCS: 99283; J1100; J9999